=== PATIENT | female | born 1955 | race Caucasian/White ===

== ENCOUNTER 2020-08-28 11:04 | Outpatient (REF) | payer BC, SELFPAY ==
[2020-08-28 14:38] LABS: Alanine Aminotransferase 16 U/L (0-31); Albumin Level 3.9 g/dL (3.5-5.0); Alkaline Phosphatase 110 U/L (39-117); Aspartate Amino Transferase 18 U/L (5-31); Bilirubin Direct 0.3 mg/dL (0.0-0.5); Bilirubin Total 0.7 mg/dL (0.0-1.0); Total Protein 6.9 g/dL (6.5-8.0)
[2020-08-28 15:02] LABS: TSH reflex Free T4 1.47 mIU/mL (0.32-4.0)
[2020-08-28 18:12] LABS: Anion Gap 13 (12-20); Blood Urea Nitrogen 22 mg/dL (9-16); Calcium 8.9 mg/dL (8.4-10.2); Carbon Dioxide 31 mmol/L (22-29); Chloride 99 mmol/L (96-108); Estimated Glomerular Filt Rate 42; Glucose Random 100 mg/dL (60-115); Potassium 3.9 mmol/l (3.3-5.1); Sodium 139 mmol/L (135-145)
== END 2020-08-28 11:05 | disposition home or self-care (01) ==
LOC: CF 11:04
PROVIDERS: PCP Internal Medicine; Referring Provider Internal Medicine; Visit Provider Internal Medicine Cardiovascular Disease
DX: I48.0 Paroxysmal atrial fibrillation (principal); R06.00 Dyspnea, unspecified; I50.30 Unspecified diastolic (congestive) heart failure; I44.0 Atrioventricular block, first degree; G47.33 Obstructive sleep apnea (adult) (pediatric); Z86.718 Personal history of other venous thrombosis and embolism; Z79.01 Long term (current) use of anticoagulants; Z79.899 Other long term (current) drug therapy
CPT/HCPCS: 36415; 80048; 80076; 84443

== ENCOUNTER 2020-09-18 14:49 | Outpatient (REF) | payer BC, SELFPAY ==
[2020-09-18 16:01] LABS: Prothrombin Time 81.7 SEC (10.8-13.0)
[2020-09-18 16:27] LABS: INTERNATIONAL NORM RATIO 6.7 (0.9-1.1)
== END 2020-09-18 14:50 | disposition home or self-care (01) ==
LOC: HO.LAB 14:49
PROVIDERS: PCP Nurse Practitioner Family; Visit Provider Internal Medicine
DX: I48.0 Paroxysmal atrial fibrillation (principal); Z79.01 Long term (current) use of anticoagulants
CPT/HCPCS: 36415; 85610; 99212

== ENCOUNTER 2020-09-19 15:17 | Emergency (ER) | payer BC, SELFPAY ==
--- NOTE | 2020-09-19 15:24 | ECG_ITS ---
Test Reason : palpitations Blood Pressure : / mmHG Vent. Rate : 088 BPM Atrial Rate : 088 BPM P-R Int : 184 ms QRS Dur : 110 ms QT Int : 378 ms P-R-T Axes : 023 -46 008 degrees QTc Int : 457 ms Normal sinus rhythm Left anterior fascicular block Intra-ventricular conduction delay Abnormal ECG When compared with ECG of 27-MAY-2009 06:20, Vent. rate has increased BY 29 BPM Referred By: Generic ED Physician Electronically Signed By:REDD ROMERO MD
[2020-09-19 15:45] VITALS: BP 119/72; PULSE 86; RESP 18; TEMP 36.6; O2SAT 98; BMI 39.2
--- NOTE | 2020-09-19 17:20 | XR_ITS ---
EXAMINATION: XR CHEST CLINICAL INFORMATION: Palpitations. Shortness of breath. COMPARISON: Chest x-ray 05/27/2009 TECHNIQUE: 2 views of the chest were obtained. FINDINGS: Cardiac silhouette is normal in size. The lungs are well aerated. There is no lobar consolidation. No pleural effusion or pneumothorax. Kyphosis of the spine with mild to moderate degenerative changes. XR/XR chest 2V IMPRESSION: Stable examination demonstrating no acute pulmonary pathology.
--- NOTE | 2020-09-19 17:22 | ED_ITS ---
HPI - Arrhythmia/Palpitations General Chief Complaint: Weakness Stated Complaint: palpitations Time Seen by Provider: 09/19/20 17:05 Source: patient Mode of arrival: ambulatory Limitations: no limitations History of Present Illness HPI narrative: 64yoF c PMHx of proximal AFib currently on warfarin, Diastolic Heart failure, HLD, and BERE presenting to the ED c c/o palpitations since last night with associated left-sided chest soreness that has been present for the past few months and shortness of breath that has also been present for the past few months worse within the past 2 weeks. Patient reports associated generalized weakness and intermittent bilateral hand tingling. Patient reports she does not have the palpitations at this time. The continues to have the generalized weakness, left-sided chest soreness and shortness of breath. Reports she recently had her medications changed Flecainide to spironolactone and beginning of August. Also reports she recently had her INR checked and she reports she believes it was 7.5. Denies any other symptoms complaints or concerns at this time. Related Data Home Medications Medication Instructions Recorded Confirmed bumetanide 2 mg tablet 2 mg PO BID 08/28/20 09/19/20 metoprolol succinate 50 mg 25 mg PO DAILY 08/28/20 09/19/20 tablet,extended release 24 hr warfarin 5 mg tablet 2.5 mg PO MOFR 08/28/20 09/19/20 warfarin [Coumadin] 5 mg PO SUTUWETHSA 09/19/20 09/19/20 Previous Rx's Medication Instructions Recorded spironolactone 25 mg tablet 25 mg PO DAILY 60 Days #60 tab 08/30/20 Allergies Allergy/AdvReac Type Severity Reaction Status Date / Time Sulfa (Sulfonamide Allergy Unknown RASH Verified 09/19/20 15:45 Antibiotics) [SULFA(SULFONAMIDE ANTIBIOTICS)] Review of Systems Review of Systems: Constitutional : + Fatigue Eyes: No Eye Pain, No Swelling, No Vision Changes Cardiovascular : + SOB, + Dyspnea on Exertion, + Orthopnea, + Palpitations, No Edema, No extremity swelling, Respiratory : No Cough, No Sputum, No Wheezing, + Dyspnea Gastrointestinal : No Nausea, No Vomiting, No Diarrhea, No abdominal Pain, No Hematochezia, No Melena Genitourinary : No irregular bleeding, No Dysuria, No Urinary Frequency, No Hematuria, No Urinary Incontinence, No Urgency, No Flank Pain, No Urinary Flow Changes, No Hesitancy Musculoskeletal : No joint pain, No Myalgias, No Joint Swelling Skin : No Skin Lesions, No rash Neuro : + Weakness, No Numbness, No Paresthesias, No Loss of Consciousness, No Dizziness, No Headache Psych : No Anxiety/Panic, No Depression, No SI/HI/AH/VH Heme/Lymph: No Bruising, No Bleeding,No Lymphadenopathy Endocrine : No Polyuria, No Polydipsia, No Temperature Intolerance Yes all other systems are reviewed and are negative [facility] Past Medical History Attestation statement: The following information was validated with the patient. Medical History Diastolic heart failure DVT (deep venous thrombosis) Hyperlipidemia BERE (obstructive sleep apnea) Paroxysmal A-fib Surgical History H/O hysterectomy for benign disease Family History Family History Father Emphysema, unspecified Mother No problems noted. Brother Atrial fibrillation Sister Atrial fibrillation Social History Social History Alcohol intake: unknown Smoking Status: Unknown if ever smoked Use of substances other than those prescribed or required for medical reasons: No Advance Directives: No Advance Directives Information Provided: No Physical Exam Vital Signs: Vital Signs: Vital Signs Temp Pulse Resp BP Pulse Ox 09/19/20 20:56 79 16 98/50 L 98 09/19/20 19:22 74 14 116/58 L 98 09/19/20 18:53 74 18 113/74 09/19/20 17:40 97.9 F 89 18 106/71 97 09/19/20 15:45 97.8 F 86 18 119/72 98 Body Mass Index 39.2 vital signs have been reviewed as normal and appeared to be correct. Blood pressure normal. Heart rate normal. Respiration rate normal. Temperature normal. Oxygen saturation normal. Appearance: Alert. Oriented X3. No acute distress. Head: Normal external exam. Normocephalic. Atraumatic. No Hutchison signs noted. No raccoon eyes noted Eyes: PERRLA. EOMI. Conjunctiva and sclera normal. Eyelids normal. ENT: EAC normal. TM's Normal. Pharynx normal. Uvula midline. Moist mucous membranes. No trismus noted. No drooling noted. No muffled voice noted. Neck: Normal inspection. Neck supple. FROM. No adenopathy. Thyroid Normal. No meningeal signs. No neck mass noted. CVS: Normal heart rate and rhythm. Heart sound normal. No murmurs noted. Pulses normal throughout. Respiratory: No respiratory distress. Painless inspiration. Breath sounds normal. No wheezes/rales/rhonchi noted. Chest nontender. No accessory muscle usage noted or decreased air movement noted. Abdomen: Soft and nontender. Bowel sounds normal in all 4 quadrants. No distention noted. No organomegaly noted. No visible injury noted. Back: No CVA tenderness. Full range of motion noted. Skin: Skin warm and dry. Normal skin color. Normal skin turgor. No rashes/lesions/lacerations noted. Extremities: No lower extremity edema. Extremities exhibit normal range of motion. Extremities nontender. No calf tenderness bilaterally. Neuro: Oriented X 3. No motor deficit. No sensory deficit. Reflexes normal. Course Course Course Narrative: 17:20PM - 64yoF c PMHx of proximal AFib currently on warfarin, Diastolic Heart failure, HLD, and BERE presenting to the ED c c/o palpitations since last night with associated left-sided chest soreness that has been present for the past few months and shortness of breath that has also been present for the past few months worse within the past 2 weeks. Patient reports associated generalized weakness and intermittent bilateral hand tingling. Patient reports she does not have the palpitations at this time. The continues to have the generalized weakness, left-sided chest soreness and shortness of breath. Reports she recently had her medications changed Flecainide to spironolactone and beginning of August. Also reports she recently had her INR checked and she reports she believes it was 7.5. Denies any other symptoms complaints or concerns at this time. - Concern for ACS vs CHF vs electrolyte abnormality - Plan: Labs, EKG, CXR, CT scan of brain then re-evaluate. Reevaluation(s) Reevaluation #1: - Patient's PT INR 71.0/5.9 therefore will instruct patient to contact her primary care provider about this and possibly skip a dose of her warfarin. Her troponin was also elevated at 5.9 otherwise all other labs are within normal limits. UA within normal limits no evidence of UTI. Chest x-ray within normal limits no acute processes noted. CT scan of brain within normal limits no acute processes noted. EKG normal sinus rhythm no acute ischemic changes and similar when compared to prior. - will repeat troponin at 21:45 3 hours after the 1st then re-evaluate Time: 19:27 Reevaluation #2: Repeat troponin 7.2 therefore negative delta. Again no acute ischemic changes on EKG and similar compared to prior. Patient reports resolved of her symptoms. Therefore consulted with cardiology Dr. Helton and he reported that he does not see any significant to admit her at this time especially if she is not having any active palpitations or chest pain. It was suggested to DC the patient and to explain to the patient to return if any new or worsening symptoms or the symptoms return. And to follow-up with her primary care provider as scheduled on this week for an outpatient stress test. I also explained to the patient that she should not take her Coumadin for the next day or 2 and to confirm this with her doctor due to her INR level was elevated. Patient understands agrees with this plan. Time: 22:07 MDM - Arrhythmia/Palpitations Medical Records Attestation: I reviewed the patient's medical records. Lab Data Attestation: I reviewed the patient's lab results. Result diagrams: 09/19/20 17:46 09/19/20 17:46 Labs: Lab Results 09/19/20 09/19/20 09/19/20 Range/Units 17:46 17:46 17:46 WBC 9.8 (4.8-10.8) X10*3/uL RBC 4.78 (4.20-5.50) X10*6/uL Hgb 14.5 (12.0-16.0) g/dl Hct 42.4 (37-47) % MCV 88.7 (80-98) fL MCH 30.3 (27.0-33.0) pg MCHC 34.2 (31.0-35.0) g/dl RDW 13.6 (11.0-16.0) % Plt Count 286 (160-400) X10*3/uL MPV 10.6 (9.4-12.3) fL Immature Gran % (Auto) 0.6 H (0.0-0.4) % Neut % (Auto) 58.6 (45-73) % Lymph % (Auto) 29.0 (20-40) % [place] % (Auto) 9.3 (2-11) % Eos % (Auto) 1.8 (0-4) % Baso % (Auto) 0.7 (0-2) % Lymph # (Auto) 2.8 (1.2-4.9) X10*3/uL [place] # (Auto) 0.9 (0.1-1.2) X10*3/uL Eos # (Auto) 0.2 (0.0-0.4) X10*3/uL Baso # (Auto) 0.1 (0.0-0.2) X10*3/uL Abs Immat Gran (auto) 0.06 H (0.00-0.03) X10*3/uL Absolute Neuts (auto) 5.7 (2.0-8.3) X10*3/uL Absolute Nucleated RBC 0.000 (0.0-0.012) X10*3/uL Nucleated RBC % (auto) 0.0 (0.0-0.2) /100WBC PT 71.0 H (10.8-13.0) SEC INR 5.9 H* (0.9-1.1) Sodium 138 (135-145) mmol/L Potassium 3.8 (3.3-5.1) mmol/l Chloride 97 (96-108) mmol/L Carbon Dioxide 28 (22-29) mmol/L Anion Gap 17 (12-20) BUN 25 H (9-16) mg/dL Creatinine 1.28 (0.5-1.4) mg/dL Estim Creat Clear Calc 54.7 Estimated GFR 42 Random Glucose 139 H D (60-115) mg/dL Calcium 8.6 (8.4-10.2) mg/dL Magnesium 2.0 (1.6-2.6) mg/dL Total Bilirubin 0.6 (0.0-1.0) mg/dL Direct Bilirubin 0.2 (0.0-0.5) mg/dL AST 23 (5-31) U/L ALT 21 (0-31) U/L Alkaline Phosphatase 133 H D (39-117) U/L Troponin I High Sens (<3.5-17.0) ng/L B-Natriuretic Peptide (<100) pg/mL Total Protein 7.8 (6.5-8.0) g/dL Albumin 4.3 (3.5-5.0) g/dL Urine Color Urine Appearance Urine pH (5.0-8.0) Ur Specific [place] (1.005-1.025) Urine Protein (NEG-TRACE) MG/DL Urine Glucose (UA) (NEG) MG/DL Urine Ketones (NEG) MG/DL Urine Blood (NEG) Urine Nitrite (NEG) Ur Leukocyte Esterase (NEG) Urine RBC (0) /HPF Urine WBC (0-4) /HPF Urine WBC Clumps Ur Squamous Epith Cells /LPF Ur Renal Epithelial Cell Urine Crystals Federico Biurate Crystals Calcium Carbonate Cryst Calcium Phosphate Cryst Calcium Oxalate Crystal Leucine Crystals Cystine Crystals Uric Acid Crystals Triple Phos Crystals Tyrosine Crystals Other Crystals Amorphous Sediment Urine Bacteria /LPF Epithelial Casts Fatty Casts Hyaline Casts Granular Casts Waxy Casts RBC Casts WBC Casts Other Casts Urine Mucus Urine Trichomonas Urine Yeast Urine Sperm Ur Oval Fat Bodies 09/19/20 09/19/20 09/19/20 Range/Units 17:46 18:54 18:54 WBC (4.8-10.8) X10*3/uL RBC (4.20-5.50) X10*6/uL Hgb (12.0-16.0) g/dl Hct (37-47) % MCV (80-98) fL MCH (27.0-33.0) pg MCHC (31.0-35.0) g/dl RDW (11.0-16.0) % Plt Count (160-400) X10*3/uL MPV (9.4-12.3) fL Immature Gran % (Auto) (0.0-0.4) % Neut % (Auto) (45-73) % Lymph % (Auto) (20-40) % [place] % (Auto) (2-11) % Eos % (Auto) (0-4) % Baso % (Auto) (0-2) % Lymph # (Auto) (1.2-4.9) X10*3/uL [place] # (Auto) (0.1-1.2) X10*3/uL Eos # (Auto) (0.0-0.4) X10*3/uL Baso # (Auto) (0.0-0.2) X10*3/uL Abs Immat Gran (auto) (0.00-0.03) X10*3/uL Absolute Neuts (auto) (2.0-8.3) X10*3/uL Absolute Nucleated RBC (0.0-0.012) X10*3/uL Nucleated RBC % (auto) (0.0-0.2) /100WBC PT (10.8-13.0) SEC INR (0.9-1.1) Sodium (135-145) mmol/L Potassium (3.3-5.1) mmol/l Chloride (96-108) mmol/L Carbon Dioxide (22-29) mmol/L Anion Gap (12-20) BUN (9-16) mg/dL Creatinine (0.5-1.4) mg/dL Estim Creat Clear Calc Estimated GFR Random Glucose (60-115) mg/dL Calcium (8.4-10.2) mg/dL Magnesium (1.6-2.6) mg/dL Total Bilirubin (0.0-1.0) mg/dL Direct Bilirubin (0.0-0.5) mg/dL AST (5-31) U/L ALT (0-31) U/L Alkaline Phosphatase (39-117) U/L Troponin I High Sens 5.9 (<3.5-17.0) ng/L B-Natriuretic Peptide 114 H (<100) pg/mL Total Protein (6.5-8.0) g/dL Albumin (3.5-5.0) g/dL Urine Color YELLOW Urine Appearance CLEAR Urine pH 7.0 (5.0-8.0) Ur Specific [place] 1.020 (1.005-1.025) Urine Protein NEG (NEG-TRACE) MG/DL Urine Glucose (UA) NEG (NEG) MG/DL Urine Ketones NEG (NEG) MG/DL Urine Blood TRACE (NEG) Urine Nitrite NEG (NEG) Ur Leukocyte Esterase NEG (NEG) Urine RBC 1-4 Cancelled (0) /HPF Urine WBC 0-2 Cancelled (0-4) /HPF Urine WBC Clumps Cancelled Ur Squamous Epith Cells 1+ Cancelled /LPF Ur Renal Epithelial Cell Cancelled Urine Crystals Cancelled [place] Biurate Crystals Cancelled Calcium Carbonate Cryst Cancelled Calcium Phosphate Cryst Cancelled Calcium Oxalate Crystal Cancelled Leucine Crystals Cancelled Cystine Crystals Cancelled Uric Acid Crystals Cancelled Triple Phos Crystals Cancelled Tyrosine Crystals Cancelled Other Crystals Cancelled Amorphous Sediment Cancelled Urine Bacteria 1+ Cancelled /LPF Epithelial Casts Cancelled Fatty Casts Cancelled Hyaline Casts Cancelled Granular Casts Cancelled Waxy Casts Cancelled RBC Casts Cancelled WBC Casts Cancelled Other Casts Cancelled Urine Mucus Cancelled Urine Trichomonas Cancelled Urine Yeast Cancelled Urine Sperm Cancelled Ur Oval Fat Bodies Cancelled 09/19/20 Range/Units 20:38 WBC (4.8-10.8) X10*3/uL RBC (4.20-5.50) X10*6/uL Hgb (12.0-16.0) g/dl Hct (37-47) % MCV (80-98) fL MCH (27.0-33.0) pg MCHC (31.0-35.0) g/dl RDW (11.0-16.0) % Plt Count (160-400) X10*3/uL MPV (9.4-12.3) fL Immature Gran % (Auto) (0.0-0.4) % Neut % (Auto) (45-73) % Lymph % (Auto) (20-40) % [place] % (Auto) (2-11) % Eos % (Auto) (0-4) % Baso % (Auto) (0-2) % Lymph # (Auto) (1.2-4.9) X10*3/uL [place] # (Auto) (0.1-1.2) X10*3/uL Eos # (Auto) (0.0-0.4) X10*3/uL Baso # (Auto) (0.0-0.2) X10*3/uL Abs Immat Gran (auto) (0.00-0.03) X10*3/uL Absolute Neuts (auto) (2.0-8.3) X10*3/uL Absolute Nucleated RBC (0.0-0.012) X10*3/uL Nucleated RBC % (auto) (0.0-0.2) /100WBC PT (10.8-13.0) SEC INR (0.9-1.1) Sodium (135-145) mmol/L Potassium (3.3-5.1) mmol/l Chloride (96-108) mmol/L Carbon Dioxide (22-29) mmol/L Anion Gap (12-20) BUN (9-16) mg/dL Creatinine (0.5-1.4) mg/dL Estim Creat Clear Calc Estimated GFR Random Glucose (60-115) mg/dL Calcium (8.4-10.2) mg/dL Magnesium (1.6-2.6) mg/dL Total Bilirubin (0.0-1.0) mg/dL Direct Bilirubin (0.0-0.5) mg/dL AST (5-31) U/L ALT (0-31) U/L Alkaline Phosphatase (39-117) U/L Troponin I High Sens 7.2 (<3.5-17.0) ng/L B-Natriuretic Peptide (<100) pg/mL Total Protein (6.5-8.0) g/dL Albumin (3.5-5.0) g/dL Urine Color Urine Appearance Urine pH (5.0-8.0) Ur Specific [place] (1.005-1.025) Urine Protein (NEG-TRACE) MG/DL Urine Glucose (UA) (NEG) MG/DL Urine Ketones (NEG) MG/DL Urine Blood (NEG) Urine Nitrite (NEG) Ur Leukocyte Esterase (NEG) Urine RBC (0) /HPF Urine WBC (0-4) /HPF Urine WBC Clumps Ur Squamous Epith Cells /LPF Ur Renal Epithelial Cell Urine Crystals [place] Biurate Crystals Calcium Carbonate Cryst Calcium Phosphate Cryst Calcium Oxalate Crystal Leucine Crystals Cystine Crystals Uric Acid Crystals Triple Phos Crystals Tyrosine Crystals Other Crystals Amorphous Sediment Urine Bacteria /LPF Epithelial Casts Fatty Casts Hyaline Casts Granular Casts Waxy Casts RBC Casts WBC Casts Other Casts Urine Mucus Urine Trichomonas Urine Yeast Urine Sperm Ur Oval Fat Bodies Imaging Data Chest x-ray: Attestation: I personally reviewed and interpreted this imaging study as follows: Radiologist's impression: FINDINGS: Cardiac silhouette is normal in size. The lungs are well aerated. There is no lobar consolidation. No pleural effusion or pneumothorax. Kyphosis of the spine with mild to moderate degenerative changes. XR/XR chest 2V IMPRESSION: Stable examination demonstrating no acute pulmonary pathology. CT scan - head: Attestation: I personally reviewed and interpreted this imaging study as follows: Radiologist's impression: FINDINGS: There is no evidence of acute intracranial hemorrhage or territorial infarction. No abnormal mass effect or midline shift is seen. Brannon to white matter differentiation is well preserved. No extra-axial fluid collections are identified. The ventricles are normal in size. There is no abnormal attenuation within the brain parenchyma. The osseous structures and soft tissues are normal. Mild hyperostosis frontalis. The mastoid air cells and visualized portions of the paranasal sinuses are well aerated. CT/CT head/brain wo con IMPRESSION: No acute intracranial pathology. ECG Data Attestation: I personally reviewed and interpreted this ECG as follows: ECG interpretation date: 09/19/20 ECG interpretation time: 15:24 Interpretation: Normal sinus rhythm with a ventricular rate of 88 with left anterior fascicular block with normal QRS/QT/QTC interval. Similar compared to prior EKG on 05/27/2009 no acute ischemic changes noted. Discharge Plan Discharge Prescriptions: No Action spironolactone 25 mg tablet 25 mg PO DAILY 60 Days Qty: 60 RF: 3 warfarin [Coumadin] 5 mg Tablet 5 mg PO SUTUWETHSA RF: 0 bumetanide 2 mg tablet 2 mg PO BID RF: 0 metoprolol succinate 50 mg tablet extended release 24 hr 25 mg PO DAILY RF: 0 warfarin 5 mg tablet 2.5 mg PO MOFR RF: 0
--- NOTE | 2020-09-19 17:23 | CT_ITS ---
EXAMINATION: CT HEAD WITHOUT CONTRAST CLINICAL INFORMATION: Generalized weakness. COMPARISON: Head CT 11/25/2014 TECHNIQUE: Contiguous axial imaging was performed from the skull base to vertex without intravenous administration of contrast. This CT examination was performed using dose optimization techniques as appropriate, variously including the following: *Automated exposure control *Adjustment of mA and/or kV according to patient size (this includes techniques or standardized protocols for targeted exams where dose is matched to indication/reason for exam; i.e. extremities or head) *Use of iterative reconstruction technique DLP: 625 mGy-cm FINDINGS: There is no evidence of acute intracranial hemorrhage or territorial infarction. No abnormal mass effect or midline shift is seen. [place] to white matter differentiation is well preserved. No extra-axial fluid collections are identified. The ventricles are normal in size. There is no abnormal attenuation within the brain parenchyma. The osseous structures and soft tissues are normal. Mild hyperostosis frontalis. The mastoid air cells and visualized portions of the paranasal sinuses are well aerated. CT/CT head/brain wo con IMPRESSION: No acute intracranial pathology.
[2020-09-19 17:40] VITALS: BP 106/71; PULSE 89; RESP 18; TEMP 36.6; O2SAT 97
[2020-09-19 17:51] LABS: MANUAL DIFF FLAG NO
[2020-09-19 18:01] LABS: INTERNATIONAL NORM RATIO 5.9 (0.9-1.1)
[2020-09-19 18:02] LABS: Basophils Absolute Auto 0.1 X10*3/uL (0.0-0.2); Basophils Percent Auto 0.7 % (0-2); Eosinophils Absolute Auto 0.2 X10*3/uL (0.0-0.4); Eosinophils Percent Auto 1.8 % (0-4); Hematocrit 42.4 % (37-47); Hemoglobin 14.5 g/dl (12.0-16.0); Imm Gran Abs Auto 0.06 X10*3/uL (0.00-0.03); Imm Gran Pct Auto 0.6 % (0.0-0.4); Lymphocytes Absolute Auto 2.8 X10*3/uL (1.2-4.9); Mean Corpuscular HGB Conc 34.2 g/dl (31.0-35.0); Mean Corpuscular Hemoglobin 30.3 pg (27.0-33.0); Mean Corpuscular Volume 88.7 fL (80-98); Mean Platelet Volume 10.6 fL (9.4-12.3); Monocytes Absolute Auto 0.9 X10*3/uL (0.1-1.2); Monocytes Percent Auto 9.3 % (2-11); Neutrophils Absolute Auto 5.7 X10*3/uL (2.0-8.3); Neutrophils Percent Auto 58.6 % (45-73); Platelet Count 286 X10*3/uL (160-400); Red Blood Count 4.78 X10*6/uL (4.20-5.50); Red Cell Distribution Width 13.6 % (11.0-16.0); White Blood Count 9.8 X10*3/uL (4.8-10.8)
[2020-09-19 18:28] LABS: B Type Natriuretic Peptide 114 pg/mL (<100); Troponin-I High Sensitivity 5.9 ng/L (<3.5-17.0)
[2020-09-19 18:42] LABS: Alanine Aminotransferase 21 U/L (0-31); Albumin Level 4.3 g/dL (3.5-5.0); Alkaline Phosphatase 133 U/L (39-117); Anion Gap 17 (12-20); Aspartate Amino Transferase 23 U/L (5-31); Bilirubin Direct 0.2 mg/dL (0.0-0.5); Bilirubin Total 0.6 mg/dL (0.0-1.0); Blood Urea Nitrogen 25 mg/dL (9-16); Calcium 8.6 mg/dL (8.4-10.2); Carbon Dioxide 28 mmol/L (22-29); Chloride 97 mmol/L (96-108); Creatinine Clr Calc Pharmacy 54.7; Estimated Glomerular Filt Rate 42; Glucose Random 139 mg/dL (60-115); Potassium 3.8 mmol/l (3.3-5.1); Sodium 138 mmol/L (135-145); Total Protein 7.8 g/dL (6.5-8.0)
[2020-09-19 18:53] VITALS: BP 113/74; PULSE 74; RESP 18
[2020-09-19 19:09] LABS: Appearance Urine CLEAR; Color Urine YELLOW; Glucose Urine UA NEG (NEG); Leukocyte Esterase Urine NEG (NEG); Nitrite Urine NEG (NEG); Urine Blood TRACE (NEG); Urine Ketones NEG (NEG); Urine Protein NEG (NEG-TRACE)
[2020-09-19 19:19] LABS: Bacteria Urine 1+ /LPF; Squamous Epithelial Cell Urine 1+ /LPF; WBC Urine 0-2 /HPF (0-4)
--- NOTE | 2020-09-19 19:20 | PC.NURSE ---
PT IS ALERT TO SELF. PT IS CALM AND COOPERATIVE. PT IS STRAIGHT CATH.
[2020-09-19 19:22] VITALS: BP 116/58; PULSE 74; RESP 14; O2SAT 98
--- NOTE | 2020-09-19 19:35 | PC.NURSE ---
Pt A&O, no sob or chest pain at this time. provider is aware of elevated of INR. call lopes in reach. pt is resting in bed at this time.
[2020-09-19 20:56] VITALS: BP 98/50; PULSE 79; RESP 16; O2SAT 98
[2020-09-19 21:08] LABS: Troponin-I High Sensitivity 7.2 ng/L (<3.5-17.0)
[2020-09-19 22:57] LABS: SARS COV2 PCR INHOUSE NEGATIVE (Negative)
== END 2020-09-19 22:39 | disposition home or self-care (01) ==
PROVIDERS: Physician Assistant Medical; Emergency Provider Internal Medicine
DX: I48.91 Unspecified atrial fibrillation (principal); G47.33 Obstructive sleep apnea (adult) (pediatric); R07.89 Other chest pain; R06.02 Shortness of breath; Z79.01 Long term (current) use of anticoagulants; Z79.899 Other long term (current) drug therapy
CPT/HCPCS: 36415; 70450; 71046; 80048; 80076; 81001; 83735; 83880; 84484; 85025; 85610; 87635; 93005; 99284; 99285

== ENCOUNTER 2020-09-20 19:57 | Inpatient (IN) | payer BC, SELFPAY ==
[2020-09-20 20:00] VITALS: BP 129/69; PULSE 88; RESP 22; TEMP 37.1; O2SAT 94; BMI 39.2
[2020-09-20 20:18] VITALS: BP 129/69; PULSE 88; RESP 22; TEMP 37.1; O2SAT 95
--- NOTE | 2020-09-20 20:18 | ECG_ITS ---
Test Reason : DIZZINESS Blood Pressure : / mmHG Vent. Rate : 087 BPM Atrial Rate : 087 BPM P-R Int : 180 ms QRS Dur : 104 ms QT Int : 382 ms P-R-T Axes : 025 -47 -07 degrees QTc Int : 459 ms Normal sinus rhythm Left anterior fascicular block Intra-ventricular conduction delay Abnormal ECG When compared with ECG of 19-SEP-2020 15:24, No significant change was found Referred By: Mo Carranza Electronically Signed By:REDD ROMERO MD
--- NOTE | 2020-09-20 20:25 | ED.ARRPALP ---
HPI - Arrhythmia/Palpitations General Chief Complaint: Dizziness Stated Complaint: WEAKNESS,DIZZINESS Time Seen by Provider: 09/20/20 20:17 Source: patient Mode of arrival: ambulatory Limitations: no limitations History of Present Illness HPI narrative: patient's history of paroxysmal AFib on metoprolol 25 mg daily and Coumadin was seen here yesterday for chest pain and palpitation workup was negative patient went home today since morning been feeling multiple episodes of palpitation followed by near syncope episode lasting about 5 minutes patient felt chest tightness with palpitations after arrival patient denies any palpitation episode MD complaint: rapid heart beat Onset (ago): hour(s) ( since a.m.) Duration: intermittent Severity: moderate Context: occurred during rest Arrhythmia history: atrial fibrillation Associated symptoms: near-syncope Related Data Home Medications Medication Instructions Recorded Confirmed bumetanide 2 mg tablet 2 mg PO BID 08/28/20 09/19/20 metoprolol succinate 50 mg 25 mg PO DAILY 08/28/20 09/19/20 tablet,extended release 24 hr warfarin 5 mg tablet 2.5 mg PO MOFR 08/28/20 09/19/20 warfarin [Coumadin] 5 mg PO SUTUWETHSA 09/19/20 09/19/20 Previous Rx's Medication Instructions Recorded spironolactone 25 mg tablet 25 mg PO DAILY 60 Days #60 tab 08/30/20 Allergies Allergy/AdvReac Type Severity Reaction Status Date / Time Sulfa (Sulfonamide Allergy Unknown RASH Verified 09/20/20 20:25 Antibiotics) [SULFA(SULFONAMIDE ANTIBIOTICS)] codeine AdvReac Vomiting Verified 09/20/20 20:25 Review of Systems Review of Systems: REVIEW OF SYSTEMS: Pertinent positives and negatives are stated above in the history. GEN: no fevers, chills, fatigue HEENT: no nasal congestion, sore throat, ear pain NEURO: no headache, dizziness, focal weakness PULM: no cough, shortness of breath CV: no chest pain, LE edema ABD: no abdominal pain, nausea, vomiting, diarrhea : no dysuria, urgency, frequency SKIN: no rash ROS otherwise negative x 10 [facility] Past Medical History Medical History Diastolic heart failure DVT (deep venous thrombosis) Hyperlipidemia BERE (obstructive sleep apnea) Paroxysmal A-fib Surgical History H/O hysterectomy for benign disease Family History Family History Father Emphysema, unspecified Mother No problems noted. Brother Atrial fibrillation Sister Atrial fibrillation Social History Social History Alcohol intake: never Smoking Status: Former smoker Smoked in Last 30 Days: No Use of substances other than those prescribed or required for medical reasons: No Advance Directives: No Advance Directives Information Provided: No Physical Exam Vital Signs: Vital Signs: Vital Signs Temp Pulse Resp BP Pulse Ox 09/20/20 20:18 98.8 F 88 22 H 129/69 95 09/20/20 20:00 98.8 F 88 22 H 129/69 94 Body Mass Index 39.2 VITAL SIGNS: Reviewed. GENERAL: Well developed, well nourished, in no acute distress. HEAD: Normocephalic/atraumatic, EYES: PERRLA No pallor/icterus noted EARS: Ext canals without abnormality NOSE: Nares patent bilateral OROPHARYNX: Oral mucosa moist no oral lesions NECK: Supple, no adenopathy LUNGS: Normal breath sounds. No adventitious sounds or accessory muscle use CARDIOVASCULAR: Regular rate and rhythm without noted murmurs, no JVD or lower extremity edema. occasional PVCs ABDOMEN: Soft, non-tender, non-distended with bowel sounds. No rigidity. No guarding. No palpable masses or hernias noted MUSCULOSKELETAL: No tenderness, deformities, EXTREMITIES: No cyanosis or edema. SKIN: no rashes, ulcerations, jaundice, pallor, or petechiae NEUROLOGIC: Alert and oriented x 3. Strength and sensation to light touch were grossly intact Course Course Course Narrative: patient with dizziness and near-syncope episode with palpitations with history of atrial fibrillation during stay in the ER patient did not have any episode labs are stable except her creatinine is increased to 1.7 for likely from prerenal. Patient does not feel good to go home at this time patient coming to the ER within 24 hours for dizziness and palpitations never had any loop recorder in the past. Will admit patient for multiple episodes of palpitations and renal insufficiency INR is 3.9 today MDM - Arrhythmia/Palpitations Differential Diagnosis Differential diagnosis: Likely palpitations, anxiety, sinus tachycardia, artial fibrillation and supraventricular tachycardia Lab Data Result diagrams: 09/20/20 20:33 09/20/20 20:33 Labs: Lab Results 09/20/20 09/20/20 09/20/20 Range/Units 20:33 20:33 20:38 WBC 9.1 (4.8-10.8) X10*3/uL RBC 4.86 (4.20-5.50) X10*6/uL Hgb 15.0 (12.0-16.0) g/dl Hct 43.5 (37-47) % MCV 89.5 (80-98) fL MCH 30.9 (27.0-33.0) pg MCHC 34.5 (31.0-35.0) g/dl RDW 13.5 (11.0-16.0) % Plt Count 246 (160-400) X10*3/uL MPV 10.8 (9.4-12.3) fL Immature Gran % (Auto) 0.2 (0.0-0.4) % Neut % (Auto) 60.7 (45-73) % Lymph % (Auto) 28.1 (20-40) % [place] % (Auto) 8.4 (2-11) % Eos % (Auto) 2.2 (0-4) % Baso % (Auto) 0.4 (0-2) % Lymph # (Auto) 2.6 (1.2-4.9) X10*3/uL [place] # (Auto) 0.8 (0.1-1.2) X10*3/uL Eos # (Auto) 0.2 (0.0-0.4) X10*3/uL Baso # (Auto) 0.0 (0.0-0.2) X10*3/uL Abs Immat Gran (auto) 0.02 (0.00-0.03) X10*3/uL Absolute Neuts (auto) 5.5 (2.0-8.3) X10*3/uL Absolute Nucleated RBC 0.000 (0.0-0.012) X10*3/uL Nucleated RBC % (auto) 0.0 (0.0-0.2) /100WBC PT 47.5 H D (10.8-13.0) SEC INR 3.9 H (0.9-1.1) Sodium 136 (135-145) mmol/L Potassium 3.8 (3.3-5.1) mmol/l Chloride 100 (96-108) mmol/L Carbon Dioxide 19 L (22-29) mmol/L Anion Gap 21 H (12-20) BUN 32 H (9-16) mg/dL Creatinine 1.74 H (0.5-1.4) mg/dL Estim Creat Clear Calc 40.2 Estimated GFR 30 POC Glucose (60-115) mg/dL Random Glucose 163 H (60-115) mg/dL Calcium 8.2 L (8.4-10.2) mg/dL Total Bilirubin 0.8 (0.0-1.0) mg/dL Direct Bilirubin 0.2 (0.0-0.5) mg/dL AST 25 (5-31) U/L ALT 20 (0-31) U/L Alkaline Phosphatase 128 H (39-117) U/L Troponin I High Sens (<3.5-17.0) ng/L Total Protein 7.5 (6.5-8.0) g/dL Albumin 4.0 (3.5-5.0) g/dL 09/20/20 09/20/20 Range/Units 20:38 20:49 WBC (4.8-10.8) X10*3/uL RBC (4.20-5.50) X10*6/uL Hgb (12.0-16.0) g/dl Hct (37-47) % MCV (80-98) fL MCH (27.0-33.0) pg MCHC (31.0-35.0) g/dl RDW (11.0-16.0) % Plt Count (160-400) X10*3/uL MPV (9.4-12.3) fL Immature Gran % (Auto) (0.0-0.4) % Neut % (Auto) (45-73) % Lymph % (Auto) (20-40) % [place] % (Auto) (2-11) % Eos % (Auto) (0-4) % Baso % (Auto) (0-2) % Lymph # (Auto) (1.2-4.9) X10*3/uL [place] # (Auto) (0.1-1.2) X10*3/uL Eos # (Auto) (0.0-0.4) X10*3/uL Baso # (Auto) (0.0-0.2) X10*3/uL Abs Immat Gran (auto) (0.00-0.03) X10*3/uL Absolute Neuts (auto) (2.0-8.3) X10*3/uL Absolute Nucleated RBC (0.0-0.012) X10*3/uL Nucleated RBC % (auto) (0.0-0.2) /100WBC PT (10.8-13.0) SEC INR (0.9-1.1) Sodium (135-145) mmol/L Potassium (3.3-5.1) mmol/l Chloride (96-108) mmol/L Carbon Dioxide (22-29) mmol/L Anion Gap (12-20) BUN (9-16) mg/dL Creatinine (0.5-1.4) mg/dL Estim Creat Clear Calc Estimated GFR POC Glucose 150 H (60-115) mg/dL Random Glucose (60-115) mg/dL Calcium (8.4-10.2) mg/dL Total Bilirubin (0.0-1.0) mg/dL Direct Bilirubin (0.0-0.5) mg/dL AST (5-31) U/L ALT (0-31) U/L Alkaline Phosphatase (39-117) U/L Troponin I High Sens 9.4 (<3.5-17.0) ng/L Total Protein (6.5-8.0) g/dL Albumin (3.5-5.0) g/dL ECG Data Attestation: I personally reviewed and interpreted this ECG as follows: Prior ECG tracings: available for review Interpretation: heart rate 87 normal sinus rhythm left anterior fascicular block LVH no acute ST T wave changes normal axis no acute change from previous EKGs Discharge Plan Discharge Clinical Impression: Paroxysmal A-fib Acute renal failure Qualifiers: Acute renal failure type: with acute tubular necrosis Qualified Code(s): N17.0 - Acute kidney failure with tubular necrosis Patient Disposition: Admitted As Inpatient
[2020-09-20] MEDS: 0.9 % Sodium Chloride 1,000 ML 999 ML IVCONT (20:29)
[2020-09-20 20:43] LABS: MANUAL DIFF FLAG NO
[2020-09-20 20:50] LABS: Basophils Percent Auto 0.4 % (0-2); Eosinophils Absolute Auto 0.2 X10*3/uL (0.0-0.4); Eosinophils Percent Auto 2.2 % (0-4); Hematocrit 43.5 % (37-47); Imm Gran Abs Auto 0.02 X10*3/uL (0.00-0.03); Imm Gran Pct Auto 0.2 % (0.0-0.4); Lymphocytes Absolute Auto 2.6 X10*3/uL (1.2-4.9); Lymphocytes Percent Auto 28.1 % (20-40); Mean Corpuscular HGB Conc 34.5 g/dl (31.0-35.0); Mean Corpuscular Hemoglobin 30.9 pg (27.0-33.0); Mean Corpuscular Volume 89.5 fL (80-98); Mean Platelet Volume 10.8 fL (9.4-12.3); Monocytes Absolute Auto 0.8 X10*3/uL (0.1-1.2); Monocytes Percent Auto 8.4 % (2-11); Neutrophils Absolute Auto 5.5 X10*3/uL (2.0-8.3); Neutrophils Percent Auto 60.7 % (45-73); Platelet Count 246 X10*3/uL (160-400); Red Blood Count 4.86 X10*6/uL (4.20-5.50); Red Cell Distribution Width 13.5 % (11.0-16.0); White Blood Count 9.1 X10*3/uL (4.8-10.8)
[2020-09-20 20:52] LABS: Glucose, Whole Blood 150 mg/dL (60-115)
[2020-09-20 20:56] LABS: INTERNATIONAL NORM RATIO 3.9 (0.9-1.1); Prothrombin Time 47.5 SEC (10.8-13.0)
[2020-09-20 21:25] LABS: Alanine Aminotransferase 20 U/L (0-31); Alkaline Phosphatase 128 U/L (39-117); Anion Gap 21 (12-20); Aspartate Amino Transferase 25 U/L (5-31); Bilirubin Direct 0.2 mg/dL (0.0-0.5); Bilirubin Total 0.8 mg/dL (0.0-1.0); Blood Urea Nitrogen 32 mg/dL (9-16); Calcium 8.2 mg/dL (8.4-10.2); Carbon Dioxide 19 mmol/L (22-29); Chloride 100 mmol/L (96-108); Glucose Random 163 mg/dL (60-115); Potassium 3.8 mmol/l (3.3-5.1); Sodium 136 mmol/L (135-145); Total Protein 7.5 g/dL (6.5-8.0)
[2020-09-20 21:35] LABS: Troponin-I High Sensitivity 9.4 ng/L (<3.5-17.0)
[2020-09-20 21:38] LABS: Creatinine Clr Calc Pharmacy 40.2; Estimated Glomerular Filt Rate 30
--- NOTE | 2020-09-20 21:47 | PC.NURSE ---
PT IN NAD PT CALM AND COOPERATIVE IN ROOM AWAITING FOR PENDING ORDERS. PT DENIES ANY COMPLAINTS AT THIS TIME,. AWAITING PENDING ORDERS.
--- NOTE | 2020-09-20 22:36 | PC.NURSE ---
PT UP AND AMBULATES TO RESTROOM WITH ASSISTENCE. PT C/O FEELING A LITTLE WINDED WHILE AMBULATING. AWARE.
[2020-09-21] VITALS (18 sets, daily range): BP systolic 87–115; BP diastolic 48–67; PULSE 63–80; RESP 14–75; TEMP 36.6–37.1; O2SAT 95–98; BMI 39.5
--- NOTE | 2020-09-21 | XR_ITS ---
EXAMINATION: XR CHEST CLINICAL INFORMATION: Shortness of breath COMPARISON: Chest radiographs 09/19/2020, 05/27/2009 TECHNIQUE: Portable upright AP view of the chest was obtained. FINDINGS: There is coarsening of the bronchiolar markings similar to recent exam 09/19/2020. The vascularity is normal. There is no vascular congestion, infiltrate, or effusion. No definite focal groundglass opacity. No pneumothorax or pleural reaction. The heart is normal in size. The hilar and mediastinal contours are unremarkable. No acute bony abnormality. XR/XR chest 1V IMPRESSION: Coarsening bronchiolar markings. No vascular congestion, airspace consolidation, or effusion.
--- NOTE | 2020-09-21 06:41 | P.HPIM_ITS ---
History of Present Illness Date of Service: 09/21/20 Chief Complaint: palpitations this is a 64-year-old female with past medical history of paroxysmal AFib who presents to the hospital complaining of intermittent episodes of palpitations, weakness, and just generally not feeling too well since Friday. Patient reports that she had an episode of almost blacking out after developing palpitations yesterday while doing laundry. She takes metoprolol and Coumadin for AFib, Coumadin has been placed on hold since Friday for supratherapeutic INR. She denies having any shortness of breath, complaining of sharp left-sided chest pain, nonradiating, 5/10, localized to the area under the left breast, she has no lower extremity edema but reports shortness of breath more than usual since Friday,, no orthopnea or PND. She has no nausea vomiting diarrhea or constipation. No urinary symptoms on arrival to the ED hemodynamically stable with no significant abnormal vitals, labs are significant for a PT of 47.5 an INR of 3.9, BUN of 32 and a creatinine of 1.74 (baseline around 1.2), EKG showed normal sinus rhythm initially, but while boarding in the ED this morning patient developed an episode of AFib with RVR with heart rate going to 140 and patient having symptoms of almost blacking out. Patient converted back to sinus spontaneously with no intervention troponin is 9.4. Past medical history: paroxysmal AFib, sleep apnea, CHF, history of DVT, past surgical history: Varicose vein? Surgery family history: Denies social history: Comes from home, denies tobacco alcohol or illicit drugs Review of Systems Review of Systems: Yes all other systems are reviewed and are negative [facility] Medical History Diastolic heart failure DVT (deep venous thrombosis) Hyperlipidemia BERE (obstructive sleep apnea) Paroxysmal A-fib Family History Father Emphysema, unspecified Mother No problems noted. Brother Atrial fibrillation Sister Atrial fibrillation Surgical History H/O hysterectomy for benign disease Social History Alcohol intake: never Smoking Status: Former smoker Smoked in Last 30 Days: No Use of substances other than those prescribed or required for medical reasons: No Advance Directives: No Advance Directives Information Provided: No Meds Allergies Allergy/AdvReac Type Severity Reaction Status Date / Time Sulfa (Sulfonamide Allergy Unknown RASH Verified 09/20/20 20:25 Antibiotics) [SULFA(SULFONAMIDE ANTIBIOTICS)] codeine AdvReac Vomiting Verified 09/20/20 20:25 Home Medications Medication Instructions Recorded Confirmed Type bumetanide 2 mg tablet 2 mg PO BID 08/28/20 09/21/20 History metoprolol succinate 50 mg 25 mg PO DAILY 08/28/20 09/21/20 History tablet,extended release 24 hr warfarin 5 mg tablet 2.5 mg PO MOFR 08/28/20 09/21/20 History warfarin [Coumadin] 5 mg PO SUTUWETHSA 09/19/20 09/21/20 History Physical Exam Vital Signs and Narrative: Vital Signs: Last Vital Signs Temp 98.8 F 09/20/20 20:18 Pulse 66 09/21/20 04:24 Resp 16 09/21/20 04:24 BP 110/64 09/21/20 04:24 Pulse Ox 97 09/21/20 04:24 Body Mass Index 39.2 Const: General: cooperative, ill appearing and tired appearing Eyes: General: appearance normal, both eyes and all related structures Pupils: Equal, round and reactive pupils present Resp: Effort & Inspection: normal respiratory effort, able to speak in compl ete sentences and abnormal respiratory pattern Auscultation: clear to auscultation bilaterally Cardio: Rate: regular rate Rhythm: regular rhythm GI: Palpation (GI): Soft to palpation Auscultation: normal bowel sounds Skin: General skin exam: no rashes or lesions noted Neuro: Cranial nerves: Yes Equal, round and reactive pupils present Cognition (Neuro): normal cognition Extrem: General: Yes normal to inspection and Yes no pedal edema Results Labs Labs: Laboratory Tests 09/20/20 09/20/20 09/20/20 20:33 20:33 20:38 WBC 9.1 RBC 4.86 Hgb 15.0 Hct 43.5 MCV 89.5 MCH 30.9 MCHC 34.5 RDW 13.5 Plt Count 246 MPV 10.8 Immature Gran % (Auto) 0.2 Neut % (Auto) 60.7 Lymph % (Auto) 28.1 [place] % (Auto) 8.4 Eos % (Auto) 2.2 Baso % (Auto) 0.4 Lymph # (Auto) 2.6 [place] # (Auto) 0.8 Eos # (Auto) 0.2 Baso # (Auto) 0.0 Abs Immat Gran (auto) 0.02 Absolute Neuts (auto) 5.5 Absolute Nucleated RBC 0.000 Nucleated RBC % (auto) 0.0 PT 47.5 H D INR 3.9 H Sodium 136 Potassium 3.8 Chloride 100 Carbon Dioxide 19 L Anion Gap 21 H BUN 32 H Creatinine 1.74 H Estim Creat Clear Calc 40.2 Estimated GFR 30 POC Glucose Random Glucose 163 H Calcium 8.2 L Total Bilirubin 0.8 Direct Bilirubin 0.2 AST 25 ALT 20 Alkaline Phosphatase 128 H Troponin I High Sens Total Protein 7.5 Albumin 4.0 09/20/20 09/20/20 20:38 20:49 WBC RBC Hgb Hct MCV MCH MCHC RDW Plt Count MPV Immature Gran % (Auto) Neut % (Auto) Lymph % (Auto) [place] % (Auto) Eos % (Auto) Baso % (Auto) Lymph # (Auto) [place] # (Auto) Eos # (Auto) Baso # (Auto) Abs Immat Gran (auto) Absolute Neuts (auto) Absolute Nucleated RBC Nucleated RBC % (auto) PT INR Sodium Potassium Chloride Carbon Dioxide Anion Gap BUN Creatinine Estim Creat Clear Calc Estimated GFR POC Glucose 150 H Random Glucose Calcium Total Bilirubin Direct Bilirubin AST ALT Alkaline Phosphatase Troponin I High Sens 9.4 Total Protein Albumin ECG Interpretation: Normal sinus rhythm Left anterior fascicular block Minimal voltage criteria for LVH, may be normal variant Abnormal ECG When compared with ECG of 19-SEP-2020 15:24, No significant change was found Assessment and Plan (1) Paroxysmal A-fib: Status: Acute (2) Acute renal failure: Qualifiers: Acute renal failure type: with acute tubular necrosis Qualified Code(s): N17.0 - Acute kidney failure with tubular necrosis Status: Acute (3) Diastolic heart failure: Status: Acute (4) BERE (obstructive sleep apnea): Status: Acute this is a 64-year-old female with past medical history of paroxysmal AFib who presents to the hospital with complaints of palpitations, and almost passing out multiple times as a result # paroxysmal AFib - had an episode of AFib with RVR while waiting in the ED with heart rate reaching 140s, patient was symptomatic, with almost presyncopal - reverted back to sinus rhythm spontaneously - no evidence of acute infection, troponin high sensitivity of 9 - no EKG changes suggestive of ACS Plan: - Will obtain a BNP, chest x-ray, cardiology consult, and admit to telemetry - patient is INR supratherapeutic, therefore will hold Coumadin - continue metoprolol # chest pain - atypical - initial troponin of 9 with no EKG changes suggestive of ACS - will order a 2nd high sensitivity troponin # diastolic heart failure - does not appear to be in overload although does endorse dyspnea plan: - Will obtain BNP, chest x-ray, echocardiogram - cardiology consultation - continue Bumex, metoprolol # history of DVT - supratherapeutic INR - PT INR daily - resume warfarin was therapeutic # BERE - continue CPAP DVT prophylaxis: Warfarin
[2020-09-21] MEDS: 0.9 % Sodium Chloride 500 ML IV (06:45)
--- NOTE | 2020-09-21 06:51 | PC.NURSE ---
PT WAS C/O CHEST DISCOMFORT AND FELT POUNDING IN CHEST. PT WAS IN A-FIB WTIH HR OF 134 AND THEN CONVERTED TO NSR WITH A HR OF 71. MD AWARE. PT STATES I FEEL A LITTLE BETTER . PT ALERT, RESPIRATIONS N/L BUT PT WAS C/O FEELING SOB PT'S PO WAS 95% ON RA. PT PUT ON 2L NC WITH PO 98%. EKG CANCELLED PER MD D/T CONVERTING BACK TO NSR. COVID SWAB OBTAINED TO LAB. HL FLUSHES EASILY W/O RESISTANCE TO LAC. PT AWAITING FOR ROOM ASSIGNMENT.
[2020-09-21 07:41] LABS: SARS COV2 PCR INHOUSE NEGATIVE (Negative)
[2020-09-21 08:17] LABS: Troponin-I High Sensitivity 8.8 ng/L (<3.5-17.0)
[2020-09-21 08:24] LABS: B Type Natriuretic Peptide 210 pg/mL (<100)
--- NOTE | 2020-09-21 08:56 | PC.NURSE ---
Dr. Celestin made aware of hypotension, 80s/50s. pt asymptomatic. nsr.
[2020-09-21] MEDS: 0.9 % Sodium Chloride 1,000 ML 500 ML IVCONT (09:20)
--- NOTE | 2020-09-21 09:57 | CA_ITS ---
Transthoracic Echocardiogram Patient (Last, First, Middle): Davida Downey L Gender: Female Date of : 1955 Age: 64 Procedure Date: 09/21/2020 Procedure Type: Transthoracic Echocardiogram Location: ICU Height: 165.1 cm Weight: 107.5 kg BSA: 2.13 m2 Heart Rate: bpm BP: 100 / 48 mmHg Industrial Economics Teacher: RACHAEL Bates MD: Manish Kinney MD Transplant Nurse: Manish Kinney MD Symptoms: A fib w rvr Study Quality: Technically Difficult ECG Rhythm: Sinus Conclusions: - 1. Normal LV systolic function with impaired relaxation filling pattern 2. Normal cardiac valvular Doppler 3. Normal RV systolic pressure 4. No gross pericardial effusion Findings Procedure Information Contrast agent, definity, is being given per protocol without apparent complications. Left Ventricle Normal left ventricular size, thickness, and systolic function. The visually estimated ejection fraction is between 60-65%. Spectral Doppler is indicative of an impaired relaxation filling pattern. Right Ventricle Normal right ventricular cavity size and systolic function. Atria The left atrium is normal in size. Interatrial shunt cannot be excluded. Aortic Valve The aortic valve was not well visualized. There is no aortic valve stenosis. There is no aortic valve regurgitation. Mitral Valve Likely normal mitral valve structure and function. There is trace mitral valve regurgitation. There is no mitral valve stenosis. Pulmonic Valve The pulmonic valve was not well visualized. Tricuspid Valve The tricuspid valve was not well visualized. There is trace tricuspid valve regurgitation. The right ventricular systolic pressure is normal. The right ventricular systolic pressure is 25 mmHg. Normal right atrial pressure. Great Vessels All visible segments of the aorta are normal in size. The pulmonary artery was not well visualized. Venous The inferior vena cava is normal in size and collapses greater than 50% with inspiration. Pericardium/Pleural There is no evidence of pericardial effusion. Prior Study Comparison No previous study in the last 5 years for comparison Measurements 2D Linear Measurements RVIDd: 2.98 RVIDd Index: 1.40 IVSd: 1.13 0.6-0.9/0.6-1.0 cm LVIDd: 4.63 3.9-5.3/4.2-5.9 cm LVIDd Index: 2.17 2.4-3.2/2.2-3.1 cm/m2 LVIDs: 3.55 2.0-3.6 cm LVPWd: 1.26 0.7-1.1 cm Ao Root: 3.40 2.1-3.5 cm LA Diam: 3.30 2.7-3.8/3.0-4.0 cm LAIDs Index: 1.55 1.5-2.3 cm/m2 LV Mass: 256.56 67-162/88-224 g LV Mass Index: 120.45 43-95/49-115 g/m2 LVOT Diam: 2.30 3.0+(-)1.3 cm 2D Systolic Function EF 4C: 52.40 >55% EF 2C: 81.00 >55% Mitral Valve MV Pk E: 0.48 MV PK A: 0.54 MV Decel Time: 287.00 E/A: 0.90 E'Lateral: 9.36 E'Medial: 7.40 E/E' Med: 6.50 E/E' Lat: 5.20 PHT: 84.00 MVA PHT: 2.62 Decel Riley: 1.68 Aortic Valve AoV Pk Ollie: 1.94 AoV Mn Ollie: 1.36 AoV VTI: 0.36 AoV Pk Grad: 15.00 Aov Mn Grad: 9.00 CRISTINA Cont.VTI: 3.69 LVOT LVOT Pk Ollie: 1.56 LVOT Mn Ollie: 1.19 LVOT VTI: 0.32 LVOT Pk Grad: 10.00 LVOT Mn Grad: 6.00 LVOT Diam: 2.30 LVOT Area: 4.15 Diastolic Function MV Pk E: 0.48 MV Pk A: 0.54 E/A: 0.90 E'Medial: 7.40 E/E' Med: 6.50 E' Laterial: 9.36 E/E' Lat: 5.20 Tricuspid Valve TR Pk Ollie: 2.06 TR Pk Grad: 17.00 RA Press: 8.00 RVSP: 25.00 Great Vessels Aorta Ao Root-2D: 3.40 2.0-3.7 cm Ao Asc: 3.30 2.1-3.4 cm Ao Arch: 3.60 Updated in Other Vendor System with Status of Final Manish Kinney MD electronically signed on 09/22/2020 9:00:10 AM with status of Final
--- NOTE | 2020-09-21 10:06 | PC.NURSE ---
gave report to [facility] [place]
[2020-09-21] MEDS: Bumetanide 1 MG TABLET 2 MG PO (11:32)
[2020-09-21] MEDS: Spironolactone 25 MG TABLET PO (11:32)
[2020-09-21] MEDS: 0.9 % Sodium Chloride Flush 3 ML SYRINGE IVFLUSH (11:32)
[2020-09-21] MEDS: Metoprolol Succinate ER 50 MG TAB.ER.24H 25 MG PO (11:34)
[2020-09-21] MEDS: Flu Vacc QS2020-21(6mos up)/PF 0.5 ML SYRINGE IM (11:35)
--- NOTE | 2020-09-21 12:20 | P.CONCA_ITS ---
History of Present Illness History of Present Illness Date of Consult: September 21, 2020 Requesting physician: Eva Jacques Consult reason: atrial fibrillation Chief complaint: symptomatic a fib w rvr Narrative: Thank you for inviting us in consult yvette Higuera. She is a pleasant 64-year-old woman with prior history of highly symptomatic paroxysmal atrial fibrillation, diastolic heart failure, recent diagnosis. Currently on high-dose Bumex therapy as outpatient for what appears to be right heart failure syndrome. She was seen in cardiology clinic by as a new consultation for management of atrial fibrillation, at which time her flecainide was discontinued due to EKG changes of first-degree AV block and left anterior fascicular block. She did well for few weeks was taking her diuretic regimen of Bumex. She said she had responded to the therapy with improving leg edema. Her continues to have exertional shortness of breath. Few days ago she started having recurrent episodes of atrial fibrillation, highly symptomatic. Friday she had more episodes of atrial fibrillation yesterday she had recurrent atrial fibrillation and felt like she was going to pass out. She therefore came to the emergency room. Noted to have supratherapeutic INR. When she came to the emergency room she was in sinus rhythm with left anterior fascicular block. However while in the emergency room she developed recurrent atrial fibrillation and had another near syncopal episode. She has low blood pressure. She also noted to have elevated creatinine consistent with acute kidney injury. She denies any orthopnea, PND, recent chest discomfort. She has had no syncopal episodes. No neurologic events of bleeding issues. Continues to have elevated INR at 3.9 but no overt recent bleeding. No nausea vomiting diarrhea. Review of Systems Constitutional: Constitutional: Reports fatigue and Reports weakness Comments: No fever, chills, body aches, significant weight gain. Or poor appetite Eyes: Eyes: Reports no additional eye complaints ENT: Reports system reviewed and no additional complaints, except as documented Cardiovascular: Cardiovascular: Reports lightheadedness, Reports palpitations and Reports dyspnea on exertion Respiratory: Respiratory: Reports dyspnea on exertion Gastrointestinal: Gastrointestinal: Reports no additional gastrointestinal complaints Neurologic: Reports system reviewed and no additional complaints, except as documented and Reports weakness Psychiatric: Psychiatric: Reports anxiety Endocrine: Endocrine: Reports fatigue and Reports palpitations Hematologic/Lymphatic: Hematologic/Lymphatic: Reports no additional hematologic/lymphatic complaints Allergic/Immunologic: Allergic/Immunologic: Reports no additional allergic/immunologic complaints [facility] Past Medical History Medical History Diastolic heart failure DVT (deep venous thrombosis) Hyperlipidemia BERE (obstructive sleep apnea) Paroxysmal A-fib Peripheral vascular complication of surgical procedure Peripheral vascular disease Family History Family History Father Emphysema, unspecified Mother No problems noted. Brother Atrial fibrillation Sister Atrial fibrillation Surgical History Surgical History H/O hysterectomy for benign disease Hx of vascular surgery Social History Social History Household Members: None Housing: Apartment Do you presently have visiting nurse or other home services: No Alcohol intake: never Smoking Status: Former smoker Tobacco Type: Cigarette Smoked in Last 30 Days: No Smoking Quit Date: 1989 Patient Interested in Nicotine Replacement: No Use of substances other than those prescribed or required for medical reasons: No Have you been hit, kicked, punched, or otherwise hurt by someone within the past year? If so, by whom?: No Do you feel safe in your current relationship?: Yes Is there a partner from a previous relationship who is making you feel unsafe now?: No Are you made to feel afraid or neglected: No Spiritual Healthcare Practices: NONE Yarsani Healthcare Practices: NONE Cultural Healthcare Practices: NONE Advance Directives: No Advance Directives Information Provided: No Do you have thoughts of harming others: None Do you have a plan to hurt others: No Plan Recently lost weight without trying: Yes service: No Current occupational status: retired Meds Allergies Allergy/AdvReac Type Severity Reaction Status Date / Time Sulfa (Sulfonamide Allergy Unknown RASH Verified 09/20/20 20:25 Antibiotics) [SULFA(SULFONAMIDE ANTIBIOTICS)] codeine AdvReac Vomiting Verified 09/20/20 20:25 oxycodone AdvReac Gastrointestinal Verified 09/21/20 10:52 Upset Home Medications Medication Instructions Recorded Confirmed Type bumetanide 2 mg tablet 2 mg PO BID 08/28/20 09/21/20 History metoprolol succinate 50 mg 25 mg PO DAILY 08/28/20 09/21/20 History tablet,extended release 24 hr warfarin 5 mg tablet 2.5 mg PO MOFR 08/28/20 09/21/20 History warfarin [Coumadin] 5 mg PO SUTUWETHSA 09/19/20 09/21/20 History Physical Exam Vital Signs: Vital Signs: Vital Signs Temp Pulse Resp BP Pulse Ox 09/21/20 12:00 98.7 F 75 16 98 09/21/20 11:34 68 100/48 L 09/21/20 11:32 68 100/48 L 09/21/20 11:16 72 20 100/48 L 96 09/21/20 09:52 66 18 115/56 L 97 09/21/20 09:23 66 100/55 L 97 09/21/20 08:55 63 87/52 L 09/21/20 08:37 65 14 91/55 L 98 09/21/20 06:55 70 16 106/62 98 09/21/20 06:00 71 16 105/62 98 09/21/20 04:24 66 16 110/64 97 09/21/20 04:00 80 75 H 101/58 L 97 09/21/20 02:00 78 16 104/55 L 98 09/21/20 00:00 76 16 104/55 L 96 09/20/20 20:18 98.8 F 88 22 H 129/69 95 09/20/20 20:00 98.8 F 88 22 H 129/69 94 Body Mass Index 39.5 Const: General: cooperative, comfortable, no acute distress, alert and awake Nutritional Appearance: obese Orientation/consciousness: patient oriented x3 HENMT: Head: Yes normal to inspection, Yes normocephalic and Yes atraumatic Eyes: General: appearance normal, both eyes and all related structures Neck: Neck: Yes full ROM, Yes trachea midline and Yes no JVD Chest: Chest palpation & inspection: normal inspection of the chest Resp: Effort & Inspection: normal respiratory effort Auscultation: clear to auscultation bilaterally Cardio: Jugular venous distension: no JVD Palpation: normal PMI Rate: regular rate Rhythm: regular rhythm Heart sounds: S1 normal heart sound present and S2 normal heart sound present Peripheral pulses: Peripheral pulses 2+ throughout GI: Inspection: Yes normal to inspection and Yes obesity Auscultation: normal bowel sounds Skin: General skin exam: elasticity normal and turgor normal Neuro: General: patient oriented x3 and no focal motor deficits Extrem: General: Yes no clubbing, cyanosis or edema Psych: Appearance: well kempt Mental Status: mental status grossly normal Speech and movement: Normal speech and movement present Affect: Anxious affect present Results Labs and Meds Result diagrams: 09/20/20 20:33 09/20/20 20:33 Lab results: Laboratory Results - last 24 hr 09/20/20 09/20/20 09/20/20 20:33 20:33 20:38 WBC 9.1 RBC 4.86 Hgb 15.0 Hct 43.5 MCV 89.5 MCH 30.9 MCHC 34.5 RDW 13.5 Plt Count 246 MPV 10.8 Immature Gran % (Auto) 0.2 Neut % (Auto) 60.7 Lymph % (Auto) 28.1 [place] % (Auto) 8.4 Eos % (Auto) 2.2 Baso % (Auto) 0.4 Lymph # (Auto) 2.6 [place] # (Auto) 0.8 Eos # (Auto) 0.2 Baso # (Auto) 0.0 Abs Immat Gran (auto) 0.02 Absolute Neuts (auto) 5.5 Absolute Nucleated RBC 0.000 Nucleated RBC % (auto) 0.0 PT 47.5 H D INR 3.9 H Sodium 136 Potassium 3.8 Chloride 100 Carbon Dioxide 19 L Anion Gap 21 H BUN 32 H Creatinine 1.74 H Estim Creat Clear Calc 40.2 Estimated GFR 30 POC Glucose Random Glucose 163 H Calcium 8.2 L Total Bilirubin 0.8 Direct Bilirubin 0.2 AST 25 ALT 20 Alkaline Phosphatase 128 H Troponin I High Sens B-Natriuretic Peptide Total Protein 7.5 Albumin 4.0 Coronavirus (PCR) 09/20/20 09/20/20 09/21/20 20:38 20:49 06:39 WBC RBC Hgb Hct MCV MCH MCHC RDW Plt Count MPV Immature Gran % (Auto) Neut % (Auto) Lymph % (Auto) [place] % (Auto) Eos % (Auto) Baso % (Auto) Lymph # (Auto) [place] # (Auto) Eos # (Auto) Baso # (Auto) Abs Immat Gran (auto) Absolute Neuts (auto) Absolute Nucleated RBC Nucleated RBC % (auto) PT INR Sodium Potassium Chloride Carbon Dioxide Anion Gap BUN Creatinine Estim Creat Clear Calc Estimated GFR POC Glucose 150 H Random Glucose Calcium Total Bilirubin Direct Bilirubin AST ALT Alkaline Phosphatase Troponin I High Sens 9.4 B-Natriuretic Peptide Total Protein Albumin Coronavirus (PCR) NEGATIVE 09/21/20 09/21/20 07:30 07:30 WBC RBC Hgb Hct MCV MCH MCHC RDW Plt Count MPV Immature Gran % (Auto) Neut % (Auto) Lymph % (Auto) [place] % (Auto) Eos % (Auto) Baso % (Auto) Lymph # (Auto) [place] # (Auto) Eos # (Auto) Baso # (Auto) Abs Immat Gran (auto) Absolute Neuts (auto) Absolute Nucleated RBC Nucleated RBC % (auto) PT INR Sodium Potassium Chloride Carbon Dioxide Anion Gap BUN Creatinine Estim Creat Clear Calc Estimated GFR POC Glucose Random Glucose Calcium Total Bilirubin Direct Bilirubin AST ALT Alkaline Phosphatase Troponin I High Sens 8.8 B-Natriuretic Peptide 210 H Total Protein Albumin Coronavirus (PCR) EKG repeatedly showed normal sinus rhythm with left anterior fascicular block. Assessment and Plan (1) Paroxysmal A-fib: Status: Acute Patient with longstanding history of paroxysmal atrial fibrillation, recently discontinued antiarrhythmic drug therapy with flecainide due to her EKG changes. She presents with recurrent symptomatic atrial fibrillation in setting of Kareem I most likely due to over-diuresis and intravascular volume depletion. Hold off on Bumex for now. Will start on IV fluid normal saline for a total infusion of 1 L. follow-up BMP in near future. Will obtain echocardiogram to assess for LV systolic and diastolic function as well as to evaluate for RV function. Given highly symptomatic nature of atrial fibrillation with most likely require antiarrhythmic drug support in the near future. Given Kareem I and renal insufficiency as well as possible heart failure, will avoid post sotalol as well as Multaq. Flecainide will be avoided given possibility of underlying coronary disease with exertional shortness of breath as well as left anterior fascicular block. Will start her on amiodarone for short term loading. Eventually most likely long-term would require ablation. Will also require hemodynamic as well as coronary evaluation near future which can be done as an outpatient. The plan was discussed with her in details. Will follow the patient. Echocardiogram is being requested as an urgent study. Thank you for allowing me to partake in her care (2) Acute renal failure: Qualifiers: Acute renal failure type: with acute tubular necrosis Qualified Code(s): N17.0 - Acute kidney failure with tubular necrosis Status: Acute (3) BERE (obstructive sleep apnea): Status: Acute
--- NOTE | 2020-09-21 12:26 | MHC.CM.PN ---
pt lives alone. she reports she is independent in caring for herself. she drives a car as well. pt does have two sons, one in [place] and one in [place]. they can help her if she needs it. one of them will be giving her a ride home at [place]. pt worked up until about a year ago at which time she went on STD because she said the job just became too much. STD has run out and now she considers herself early retired. she denies the need for vna at this time. [place] plan is home no svcs. cm to cont. to follow.
[2020-09-21] MEDS: 0.9 % Sodium Chloride 1,000 ML 100 ML IVCONT (12:45)
[2020-09-21 14:14] LABS: Anion Gap 12 (12-20); Blood Urea Nitrogen 21 mg/dL (9-16); Calcium 8.1 mg/dL (8.4-10.2); Carbon Dioxide 30 mmol/L (22-29); Chloride 101 mmol/L (96-108); Estimated Glomerular Filt Rate 51; Glucose Random 207 mg/dL (60-115); Potassium 3.7 mmol/l (3.3-5.1); Sodium 139 mmol/L (135-145)
[2020-09-21] MEDS: Acetaminophen 325 MG TABLET 650 MG PO (16:39)
--- NOTE | 2020-09-21 16:57 | PC.NURSE ---
Pt arrived this afternoon from the ED. Pt denies complaint at this time. SR on monitor. BP soft 100/48. Dr Kinney at the bedside, examined and spoke with pt. As of now, bumex is to be placed on hold. Pt is to recieve 1000ml NS at a rate of 100ml/hr, then is to be encouraged to drink fluids. Pt has had a good appetite and is drinking apple juice and gregory elly. She states she prefers to have ice vs drinking water. Bucket of ice at the bed side. Pt had echo today with [facility]. After the echo, while cleaning off gel, pt found to have slit under left breast. Interdry placed. Will contact MD for further treatment. Pt has been using bedside commode without difficulty. Pt assisted in full bath and bed change.
--- NOTE | 2020-09-21 17:03 | PC.NURSE ---
Pt reporting a sensation like she is laying on a ball when she is supine. She states it is just to the left of her spine. On exam, noted obvious muscle spams in the area indicated. Massage admin. K-pad called for. Pt given APAP and placed on right side for a position of comfort. Pt reports the pain is a 4/10 but is much worse if she is laying on it. She states the pain started sometime after arriving at the hospital.
--- NOTE | 2020-09-21 17:05 | PC.NURSE ---
Pt has a #20 IV LAC which was placed by EMS prior to arrival at the hospital. The IV was continuing to have down stream occlusion alarms and was uncomfortable for the pt. IV removed. #20 IV placed left lower arm and wrapped for protection.
[2020-09-21] MEDS: Amiodarone HCL 200 MG TABLET PO (21:30)
[2020-09-22] VITALS: BP 107/55; PULSE 63; RESP 18; TEMP 36.7; O2SAT 94
[2020-09-22] MEDS: 0.9 % Sodium Chloride Flush 3 ML SYRINGE IVFLUSH ×2 (00:19→08:56)
[2020-09-22 04:00] VITALS: BP 130/57; PULSE 55; RESP 18; TEMP 36; O2SAT 98
[2020-09-22 05:33] LABS: MANUAL DIFF FLAG NO
[2020-09-22 06:00] VITALS: BMI 39.9
[2020-09-22 06:06] LABS: Anion Gap 12 (12-20); Blood Urea Nitrogen 21 mg/dL (9-16); Carbon Dioxide 29 mmol/L (22-29); Chloride 103 mmol/L (96-108); Creatinine Clr Calc Pharmacy 68.9; Estimated Glomerular Filt Rate 55; Glucose Random 135 mg/dL (60-115); Potassium 4.2 mmol/l (3.3-5.1); Sodium 140 mmol/L (135-145)
[2020-09-22 06:16] LABS: Basophils Percent Auto 0.6 % (0-2); Eosinophils Absolute Auto 0.2 X10*3/uL (0.0-0.4); Eosinophils Percent Auto 3.5 % (0-4); Hematocrit 38.6 % (37-47); Hemoglobin 12.8 g/dl (12.0-16.0); Imm Gran Abs Auto 0.02 X10*3/uL (0.00-0.03); Imm Gran Pct Auto 0.3 % (0.0-0.4); Lymphocytes Absolute Auto 2.4 X10*3/uL (1.2-4.9); Lymphocytes Percent Auto 36.8 % (20-40); Mean Corpuscular HGB Conc 33.2 g/dl (31.0-35.0); Mean Corpuscular Hemoglobin 30.7 pg (27.0-33.0); Mean Corpuscular Volume 92.6 fL (80-98); Mean Platelet Volume 10.7 fL (9.4-12.3); Monocytes Absolute Auto 0.6 X10*3/uL (0.1-1.2); Monocytes Percent Auto 9.4 % (2-11); Neutrophils Absolute Auto 3.3 X10*3/uL (2.0-8.3); Neutrophils Percent Auto 49.4 % (45-73); Platelet Count 215 X10*3/uL (160-400); Red Blood Count 4.17 X10*6/uL (4.20-5.50); White Blood Count 6.6 X10*3/uL (4.8-10.8)
[2020-09-22 08:00] VITALS: BP 114/58; PULSE 63; RESP 18; TEMP 36.3; O2SAT 97
[2020-09-22 08:13] LABS: INTERNATIONAL NORM RATIO 2.3 (0.9-1.1); Prothrombin Time 27.5 SEC (10.8-13.0)
[2020-09-22 08:56] VITALS: BP 105/61; PULSE 60
[2020-09-22] MEDS: Amiodarone HCL 200 MG TABLET PO (08:56)
[2020-09-22 08:57] VITALS: BP 105/61; PULSE 60
[2020-09-22] MEDS: Spironolactone 25 MG TABLET PO (08:57)
[2020-09-22] MEDS: Acetaminophen 325 MG TABLET 650 MG PO (09:01)
[2020-09-22 11:28] VITALS: BP 106/55; PULSE 60; RESP 18; TEMP 36.4; O2SAT 95
--- NOTE | 2020-09-22 12:55 | P.PNCAR_ITS ---
Subjective Subjective Principal diagnosis: atrial fibrillation with rapid ventricular response, symptomatic Interval history: patient feeling better. Renal function is normalized. Remains in sinus rhythm. Tolerating amiodarone at current dose. Echocardiogram shows normal biventricular systolic function. Blood pressure is on the lower side but stable Review of Systems Constitutional: Reports weakness Eyes: Reports no additional eye complaints Cardiovascular: Reports no additional cardiovascular complaints Respiratory: Reports no additional respiratory complaints Reports system reviewed and no additional complaints, except as documented and Reports weakness Psychiatric: Reports anxiety Allergic/Immunologic: Reports no additional allergic/immunologic complaints Physical Exam Vital Signs: Vital Signs Temp Pulse Resp BP Pulse Ox 09/22/20 11:28 97.6 F 60 18 106/55 L 95 09/22/20 08:57 60 105/61 09/22/20 08:56 60 105/61 09/22/20 08:00 97.3 F 63 18 114/58 L 97 09/22/20 04:00 96.8 F 55 18 130/57 L 98 09/22/20 00:00 98.1 F 63 18 107/55 L 94 09/21/20 21:30 68 99/55 L 09/21/20 19:48 97.9 F 72 21 H 109/67 95 09/21/20 15:59 98.7 F 71 24 H 103/52 L 95 Body Mass Index 39.9 Const General: cooperative, no acute distress, alert and awake Nutritional Appearance: obese Orientation/consciousness: patient oriented x3 HENMT Head: Yes normal to inspection, Yes normocephalic and Yes atraumatic Ears: hearing grossly normal bilaterally Eyes General: appearance normal, both eyes and all related structures Neck Neck: Yes full ROM, Yes trachea midline and Yes no JVD Chest Chest palpation & inspection: normal inspection of the chest Resp Effort & Inspection: normal respiratory effort Auscultation: clear to auscultation bilaterally Cardio Jugular venous distension: no JVD Rate: regular rate Rhythm: regular rhythm Heart sounds: S1 normal heart sound present and S2 normal heart sound present GI Auscultation: normal bowel sounds Skin General skin exam: no rashes or lesions noted Neuro General: patient oriented x3 and no focal motor deficits Extrem General: Yes no clubbing, cyanosis or edema Results Labs and Meds Result diagrams: 09/22/20 04:35 09/22/20 04:35 Lab results: Laboratory Results - last 24 hr 09/21/20 09/22/20 09/22/20 13:37 04:35 04:35 WBC 6.6 RBC 4.17 L Hgb 12.8 Hct 38.6 MCV 92.6 MCH 30.7 MCHC 33.2 RDW 14.0 Plt Count 215 MPV 10.7 Immature Gran % (Auto) 0.3 Neut % (Auto) 49.4 Lymph % (Auto) 36.8 [place] % (Auto) 9.4 Eos % (Auto) 3.5 Baso % (Auto) 0.6 Lymph # (Auto) 2.4 [place] # (Auto) 0.6 Eos # (Auto) 0.2 Baso # (Auto) 0.0 Abs Immat Gran (auto) 0.02 Absolute Neuts (auto) 3.3 Absolute Nucleated RBC 0.000 Nucleated RBC % (auto) 0.0 PT INR Sodium 139 140 Potassium 3.7 4.2 Chloride 101 103 Carbon Dioxide 30 H 29 Anion Gap 12 12 BUN 21 H 21 H Creatinine 1.08 1.02 Estim Creat Clear Calc 65.0 68.9 Estimated GFR 51 55 Random Glucose 207 H 135 H Calcium 8.1 L 8.0 L 09/22/20 07:43 WBC RBC Hgb Hct MCV MCH MCHC RDW Plt Count MPV Immature Gran % (Auto) Neut % (Auto) Lymph % (Auto) [place] % (Auto) Eos % (Auto) Baso % (Auto) Lymph # (Auto) [place] # (Auto) Eos # (Auto) Baso # (Auto) Abs Immat Gran (auto) Absolute Neuts (auto) Absolute Nucleated RBC Nucleated RBC % (auto) PT 27.5 H D INR 2.3 H Sodium Potassium Chloride Carbon Dioxide Anion Gap BUN Creatinine Estim Creat Clear Calc Estimated GFR Random Glucose Calcium Progress Note: A&P Assessment and plan (1) Paroxysmal A-fib: Status: Acute Assessment and Plan: highly symptomatic paroxysmal atrial fibrillation Currently remaining normal sinus rhythm with improved symptoms. Will continue amiodarone for short term and eventually refer for ablation after undergoing cardiac catheterization to evaluate for hemodynamics as well as coronary anatomy. This will be scheduled in near future as an outpatient. Patient will follow-up with Dr. Butterfield as out patient. continue warfarin therapy with target INR between 2 and 3. patient can be discharged from cardiac perspective. (2) Acute renal failure: Status: Acute Assessment and Plan: This has resolved with IV fluid. Reduce Bumex to 2 mg daily, will most likely over diuresed. Right heart failure diagnosis needs to be further investigated with cardiac catheterization. Fall Risk Details Current Medications: Current Medications Generic Name Dose Route Start Last Admin Trade Name Freq PRN Reason Stop Dose Admin Acetaminophen 650 mg 09/21/20 09:57 09/22/20 09:01 Acetaminophen 325 Mg Tablet PO 650 mg Q6H PRN Administration Pain, Mild (Pain Scale 1-3) Amiodarone HCl 200 mg 09/21/20 21:00 09/22/20 08:56 Amiodarone Hcl 200 Mg Tablet PO 200 mg BID GIOVANNA Administration Metoprolol Succinate 25 mg 09/21/20 09:57 09/22/20 08:58 Metoprolol Succinate Er 50 Mg Tab.Er.24h PO Not Given DAILY GIOVANNA Protocol Ondansetron HCl 4 mg 09/21/20 09:57 Ondansetron Hcl 4 Mg/2 Ml Vial IVPUSH Q8H PRN Nausea and Vomiting Sodium Chloride 3 ml 09/21/20 09:57 09/22/20 08:56 0.9 % Sodium Chloride Flush 3 Ml Syringe IVFLUSH 3 ml QSHIFT GIOVANNA Administration Spironolactone 25 mg 09/21/20 09:57 09/22/20 08:57 Spironolactone 25 Mg Tablet PO 25 mg DAILY GIOVANNA Administration Protocol Time Spent With Patient Time: Total time spent is greater than 50% in coordination of care (as documented) at patient's floor/unit and/or counseling patient: Time with patient: 15 - 24 minutes
--- NOTE | 2020-09-22 14:20 | P.DS_ITS ---
DS: Providers Provider Date of admission: 09/21/20 06:40 Primary care physician: Unknown Physician Consults: 09/21/20 07:57 Consult to Cardiology Routine Consulting Provider: John Helton Reason for consultation: symptomatic afib Has provider been notified: Yes 09/21/20 09:57 Consult to Cardiology Routine Consulting Provider: Manish Kinney Reason for consultation: A.fib with RVR - symptomatic Has provider been notified: No 09/21/20 11:08 Consult Respiratory Therapy Routine Reason for consultation: BEDTIME CPAP USE AT HOME. UNABLE TO BRING IN MACHINE DS: Diagnosis Discharge Diagnosis (1) Paroxysmal A-fib: Status: Acute (2) Acute renal failure: Status: Acute DS: Summary Hospital Course Hospital Course: HPI from admission on 09/21/[address] Rocha Chief Complaint: palpitations 64-year-old female with past medical history of paroxysmal AFib who presents to the hospital complaining of intermittent episodes of palpitations, weakness, and just generally not feeling too well since Friday. Patient reports that she had an episode of almost blacking out after developing palpitations yesterday while doing laundry. She takes metoprolol and Coumadin for AFib, Coumadin has been placed on hold since Friday for supratherapeutic INR. She denies having any shortness of breath, complaining of sharp left-sided chest pain, nonradiating, 5/10, localized to the area under the left breast, she has no lower extremity edema but reports shortness of breath more than usual since Friday,, no orthopnea or PND. She has no nausea vomiting diarrhea or constipation. No urinary symptoms on arrival to the ED hemodynamically stable with no significant abnormal vitals, labs are significant for a PT of 47.5 an INR of 3.9, BUN of 32 and a creatinine of 1.74 (baseline around 1.2), EKG showed normal sinus rhythm initially, but while boarding in the ED this morning patient developed an episode of AFib with RVR with heart rate going to 140 and patient having symptoms of almost blacking out. Patient converted back to sinus spontaneously with no intervention troponin is 9.4. Hospital Course: Patient was admitted to the hospital and closely monitored on color television console monitor. She has been in normal sinus and was evaluated by cardiology and has been started on Amiodarone 200mg bid for a month, then 200 mg daily. She has previously been on Flaicanide but discontinued due to ECG changes. Ultimately she will need cardiac catherization and ablation and this will be arranged on outpatient basis. Of note she was in acute renal failure on admission likely from too much Bumex. Creatinine has normalized from 1.74 to 1.02 now. Bumex is being reduced to 2 mg daily from twice daily. Also her INR had been elevated since 09/18 at 6.7 and presently 2.3 and will resume coumadin at 2.5 mg daily not alternating with 5 mgd on SUTUWETHSA. She should follow up with coumadin clinic on Friday Time Spent with Patient Time attestation: Total time spent providing and/or coordinating discharge services: Physical Exam Vital Signs: Vital Signs: Vital Signs Temp Pulse Resp BP Pulse Ox 09/22/20 11:28 97.6 F 60 18 106/55 L 95 09/22/20 08:57 60 105/61 09/22/20 08:56 60 105/61 09/22/20 08:00 97.3 F 63 18 114/58 L 97 09/22/20 04:00 96.8 F 55 18 130/57 L 98 09/22/20 00:00 98.1 F 63 18 107/55 L 94 09/21/20 21:30 68 99/55 L 09/21/20 19:48 97.9 F 72 21 H 109/67 95 09/21/20 15:59 98.7 F 71 24 H 103/52 L 95 Body Mass Index 39.9 DS: Data Data Completed and Pending Labs on day of discharge: Laboratory Tests 09/22/20 04:35 WBC 6.6 Hgb 12.8 Hct 38.6 Laboratory Tests 09/18/20 09/19/20 09/20/20 15:30 17:46 20:38 INR 6.7 H* 5.9 H* 3.9 H 09/22/20 07:43 INR 2.3 H Laboratory Tests 09/20/20 09/21/20 09/22/20 20:33 13:37 04:35 Creatinine 1.74 H 1.08 1.02 Discharge Plan Discharge Anticipated Discharge Date/Time: 09/22/20 14:16 Patient Disposition: Home, Self-Care Referrals: Physician,Unknown [Primary Care Provider] - Discharge Medications: New amiodarone 200 mg Tablet 200 mg PO BID Qty: 120 RF: 0 Continued spironolactone 25 mg tablet 25 mg PO DAILY 60 Days Qty: 60 RF: 3 metoprolol succinate 50 mg tablet extended release 24 hr 25 mg PO DAILY RF: 0 Changed bumetanide 2 mg tablet 2 mg PO DAILY Qty: 0 RF: 0 warfarin 5 mg tablet 2.5 mg PO DAILY Qty: 0 RF: 0 Discontinued warfarin [Coumadin] 5 mg Tablet 5 mg PO SUTUWETHSA RF: 0 Discharge Orders: Discharge Order (Routine); Ordered 09/22/20 Ordered By: Isma Grigsby Diet: advance to your usual diet Activity on Discharge: As tolerated Visit Report Forms: Patient Portal Discharge page Care Plan Goals: To control Atrial fibrilation Health Concerns: recurrent atrial fibrilation and associated symptoms Plan of Treatment: Take amiodarone as recommended, follow up with Dr. Butterfield for cardiac catherization and later ablation for atrial fibrilation. Continue Bumex but at reduce dose of 2 mg daily, no longer twice a day. Also take amiodarone as recommended and follow up with your Doctor within a week. Have INR level check on Friday. Take coumadin 2.5 mg daily
[2020-09-22 14:29] VITALS: BMI 39.9
--- NOTE | 2020-09-22 14:37 | MHC.CM.PN ---
Patient is discharging home today no services. Patient reports one of her sons is going to provide transport.
== END 2020-09-22 15:18 | disposition home or self-care (01) | DRG 201 ==
LOC: HO.ED 09-21 06:36 → HO.ICU 09-21 07:32 → HO.IMC 09-21 20:51
PROVIDERS: Emergency Medicine; Admitting Provider Internal Medicine; Emergency Provider Internal Medicine; Visit Provider Internal Medicine
DX: I48.0 Paroxysmal atrial fibrillation (principal); N17.0 Acute kidney failure with tubular necrosis; I50.32 Chronic diastolic (congestive) heart failure; Z20.828 Contact with and (suspected) exposure to other viral communicable diseases; E78.5 Hyperlipidemia, unspecified; G47.33 Obstructive sleep apnea (adult) (pediatric); E66.9 Obesity, unspecified; Z68.39 Body mass index [BMI] 39.0-39.9, adult; Z23 Encounter for immunization; Z86.718 Personal history of other venous thrombosis and embolism; Z87.891 Personal history of nicotine dependence; Z88.2 Allergy status to sulfonamides; Z88.5 Allergy status to narcotic agent; Z79.01 Long term (current) use of anticoagulants; Z79.899 Other long term (current) drug therapy
CPT/HCPCS: 36415; 70450; 71045; 71046; 80048; 80076; 81001; 82947; 83735; 83880; 84484; 85025; 85610; 87635; 90686; 93005; 93306; 94660; 96361; 96374; 99212; 99284; 99285

== ENCOUNTER → 2020-09-27 15:55 | Outpatient (BNVA) | payer BC, SELFPAY | PROVIDERS: Visit Provider Internal Medicine | DX: I48.0 Paroxysmal atrial fibrillation (principal); Z51.81 Encounter for therapeutic drug level monitoring; Z79.01 Long term (current) use of anticoagulants | CPT/HCPCS: 85610; 99212 ==

== ENCOUNTER → 2020-10-06 15:18 | Outpatient (BNVA) | payer BC, SELFPAY | PROVIDERS: PCP Nurse Practitioner Family; Visit Provider Internal Medicine | DX: I48.0 Paroxysmal atrial fibrillation (principal); Z51.81 Encounter for therapeutic drug level monitoring; Z79.01 Long term (current) use of anticoagulants | CPT/HCPCS: 85610; 99211 ==

== ENCOUNTER → 2020-10-09 10:12 | Outpatient (BNVA) | payer BC, SELFPAY | PROVIDERS: PCP Internal Medicine; Visit Provider Internal Medicine | DX: I48.0 Paroxysmal atrial fibrillation (principal); Z51.81 Encounter for therapeutic drug level monitoring; Z79.01 Long term (current) use of anticoagulants | CPT/HCPCS: 85610; 99211 ==

== ENCOUNTER → 2020-10-16 11:11 | Outpatient (BNVA) | payer BC, SELFPAY | PROVIDERS: PCP Internal Medicine; Visit Provider Internal Medicine | DX: I48.0 Paroxysmal atrial fibrillation (principal); Z51.81 Encounter for therapeutic drug level monitoring; Z79.01 Long term (current) use of anticoagulants; R06.00 Dyspnea, unspecified; I50.30 Unspecified diastolic (congestive) heart failure; E66.9 Obesity, unspecified; Z68.39 Body mass index [BMI] 39.0-39.9, adult; Z98.890 Other specified postprocedural states | CPT/HCPCS: 85610; 99211 ==

== ENCOUNTER → 2020-10-23 10:31 | Outpatient (BNVA) | payer BC, SELFPAY | PROVIDERS: PCP Nurse Practitioner Family; Visit Provider Internal Medicine | DX: I48.0 Paroxysmal atrial fibrillation (principal); Z51.81 Encounter for therapeutic drug level monitoring; Z79.01 Long term (current) use of anticoagulants | CPT/HCPCS: 85610; 99211 ==

== ENCOUNTER → 2020-10-30 10:40 | Outpatient (BNVA) | payer BC, SELFPAY | PROVIDERS: PCP Nurse Practitioner Family; Visit Provider Internal Medicine | DX: I48.0 Paroxysmal atrial fibrillation (principal); Z79.01 Long term (current) use of anticoagulants; Z51.81 Encounter for therapeutic drug level monitoring | CPT/HCPCS: 85610 ==

== ENCOUNTER → 2020-11-15 14:56 | Outpatient (BNVA) | payer BC, SELFPAY | PROVIDERS: PCP Nurse Practitioner Family; Visit Provider Internal Medicine | DX: I48.0 Paroxysmal atrial fibrillation (principal); Z79.01 Long term (current) use of anticoagulants; Z51.81 Encounter for therapeutic drug level monitoring | CPT/HCPCS: 85610; 99211 ==

== ENCOUNTER → 2020-12-04 15:28 | Outpatient (BNVA) | payer OTHER, SELFPAY | PROVIDERS: PCP Nurse Practitioner Family; Visit Provider Internal Medicine | DX: I48.0 Paroxysmal atrial fibrillation (principal); Z79.01 Long term (current) use of anticoagulants; Z51.81 Encounter for therapeutic drug level monitoring | CPT/HCPCS: 85610; 99211 ==

== ENCOUNTER → 2020-12-05 10:44 | Outpatient (BNVA) | payer OTHER, SELFPAY | PROVIDERS: PCP Internal Medicine; Referring Provider Internal Medicine; Visit Provider Psychiatry & Neurology Neurology | DX: Z76.89 Persons encountering health services in other specified circumstances (principal) ==

== ENCOUNTER → 2021-01-03 16:26 | Outpatient (BNVA) | payer OTHER, SELFPAY | PROVIDERS: PCP Internal Medicine; Visit Provider Internal Medicine | DX: I48.0 Paroxysmal atrial fibrillation (principal); Z51.81 Encounter for therapeutic drug level monitoring; Z79.01 Long term (current) use of anticoagulants | CPT/HCPCS: 85610; 99211 ==

== ENCOUNTER → 2021-01-31 15:45 | Outpatient (BNVA) | payer OTHER, SELFPAY | PROVIDERS: PCP Internal Medicine; Visit Provider Internal Medicine | DX: I48.0 Paroxysmal atrial fibrillation (principal); Z51.81 Encounter for therapeutic drug level monitoring; Z79.01 Long term (current) use of anticoagulants | CPT/HCPCS: 85610; 99211 ==

== ENCOUNTER → 2021-02-13 10:45 | Outpatient (BNVA) | payer OTHER, SELFPAY | PROVIDERS: PCP Internal Medicine; Visit Provider Psychiatry & Neurology Neurology ==

== ENCOUNTER → 2021-02-19 15:29 | Outpatient (BNVA) | payer OTHER, SELFPAY | PROVIDERS: PCP Internal Medicine; Visit Provider Internal Medicine | DX: I48.0 Paroxysmal atrial fibrillation (principal); Z51.81 Encounter for therapeutic drug level monitoring; Z79.01 Long term (current) use of anticoagulants | CPT/HCPCS: 85610; 99211 ==

== ENCOUNTER 2021-02-26 15:34 | Outpatient (REF) | payer OTHER, SELFPAY ==
[2021-02-26 17:17] LABS: Hematocrit 42.2 % (37-47); Hemoglobin 14.2 g/dl (12.0-16.0); Mean Corpuscular HGB Conc 33.6 g/dl (31.0-35.0); Mean Corpuscular Hemoglobin 30.9 pg (27.0-33.0); Mean Corpuscular Volume 91.7 fL (80-98); Mean Platelet Volume 10.5 fL (9.4-12.3); Platelet Count 285 X10*3/uL (160-400); Red Cell Distribution Width 13.6 % (11.0-16.0); White Blood Count 8.5 X10*3/uL (4.8-10.8)
[2021-02-26 17:22] LABS: Prothrombin Time 23.5 SEC (10.8-13.0)
[2021-02-26 18:01] LABS: Alanine Aminotransferase 21 U/L (0-31); Albumin Level 4.2 g/dL (3.5-5.0); Alkaline Phosphatase 112 U/L (39-117); Anion Gap 13 (12-20); Aspartate Amino Transferase 19 U/L (5-31); Bilirubin Direct 0.2 mg/dL (0.0-0.5); Bilirubin Total 0.5 mg/dL (0.0-1.0); Blood Urea Nitrogen 25 mg/dL (9-16); Calcium 9.1 mg/dL (8.4-10.2); Carbon Dioxide 29 mmol/L (22-29); Chloride 100 mmol/L (96-108); Cholesterol 217 mg/dL; Creatinine Urine 47.97 mg/dL; Estimated Glomerular Filt Rate 36; Glucose Fasting 123 mg/dL (60-99); HDL Cholesterol 42 mg/dL; LDL Cholesterol Calculated 128 mg/dl; Microalbumin Urine < 5.0 mg/L; Potassium 4.1 mmol/L (3.3-5.1); Sodium 138 mmol/L (135-145); Total Protein 7.5 g/dL (6.5-8.0); Triglycerides 239 mg/dL
[2021-02-26 18:22] LABS: TSH reflex Free T4 1.36 uIU/mL (0.32-4.0); TSH reflex Free T4 1.52 uIU/mL (0.32-4.0)
[2021-02-27 03:40] LABS: Estimated Average Glucose 137 mg/dL; Hemoglobin A1c % 6.4 %
== END 2021-02-26 15:35 | disposition home or self-care (01) ==
LOC: HO.LAB 15:34
PROVIDERS: Internal Medicine; PCP Internal Medicine; Visit Provider Internal Medicine Cardiovascular Disease
DX: I48.0 Paroxysmal atrial fibrillation (principal); R06.00 Dyspnea, unspecified; I50.30 Unspecified diastolic (congestive) heart failure; R73.9 Hyperglycemia, unspecified; Z79.899 Other long term (current) drug therapy; Z79.01 Long term (current) use of anticoagulants; Z87.891 Personal history of nicotine dependence; Z51.81 Encounter for therapeutic drug level monitoring
CPT/HCPCS: 36415; 80053; 80061; 80076; 82043; 82248; 83036; 84443; 85027; 85610

== ENCOUNTER 2021-03-05 16:05 | Outpatient (REF) | payer OTHER, SELFPAY ==
--- NOTE | 2021-03-05 17:25 | PFT_ITS ---
INDICATION: Therapeutic drug monitoring. SPIROMETRY: The FEV1 to FVC 86% with an FEV1 of 2.33 L, which is 88% predicted, and an FVC of 2.7 L, which is 78% predicted. The maximum voluntary ventilation 106% predicted. LUNG VOLUMES: Total lung capacity 86% predicted with an expiratory reserve volume of 12% predicted likely secondary to an elevated BMI. DIFFUSION CAPACITY: DLCO 74% predicted. COMPARISONS: Not available. INTERPRETATION: No obstructive nor restrictive ventilatory defects identified. No significant response to bronchodilators noted. Normal maximum voluntary ventilation. Lung volumes are normal except for decrease in the expiratory reserve volume secondary to an elevated BMI. The patient does have a mild diffusion impairment. Clinical correlation warranted. No evidence of any underlying interstitial process of this time. Steven Castillo MD MR/MODL / [id number]
== END 2021-03-05 16:06 | disposition home or self-care (01) ==
LOC: HO.RESP 16:05
PROVIDERS: PCP Internal Medicine; Visit Provider Internal Medicine Cardiovascular Disease
DX: R06.02 Shortness of breath (principal); Z51.81 Encounter for therapeutic drug level monitoring
CPT/HCPCS: 94060; 94727; 94729

== ENCOUNTER 2021-03-07 12:11 | Outpatient (REF) | payer OTHER, SELFPAY ==
--- NOTE | ~2021-03-07 | XR_ITS ---
EXAMINATION: XR BILATERAL HIPS WITH AP PELVIS CLINICAL INFORMATION: Bilateral hip pain. COMPARISON: CT pelvis 04/24/2020. TECHNIQUE: Bilateral AP and bilateral frog lateral projection the hips are obtained for a total of 4 views. FINDINGS: There is no fracture or dislocation or destructive process. No focal hip joint narrowing or erosive change or visible chondrocalcinosis. There is borderline spur superior aspect right greater trochanter. There is osteitis pubis present. Borderline degenerative changes inferior SI joints. XR/XR hips DAINA min 3V IMPRESSION: 1. No hip joint narrowing or erosive change. 2. Osteitis pubis.
[2021-03-07 14:36] LABS: Anion Gap 12 (12-20); Blood Urea Nitrogen 20 mg/dL (9-16); Calcium 9.5 mg/dL (8.4-10.2); Carbon Dioxide 25 mmol/L (22-29); Chloride 106 mmol/L (96-108); Estimated Glomerular Filt Rate 44; Glucose Random 103 mg/dL (60-115); Potassium 4.8 mmol/L (3.3-5.1); Sodium 138 mmol/L (135-145)
[2021-03-07 14:55] LABS: Creatinine Urine 124.77 mg/dL; Microalbumin Urine < 5.0 mg/L
== END 2021-03-07 12:12 | disposition home or self-care (01) ==
LOC: HO.HMGCLDS 12:11
PROVIDERS: PCP Internal Medicine; Visit Provider Internal Medicine
DX: I48.0 Paroxysmal atrial fibrillation (principal); I50.30 Unspecified diastolic (congestive) heart failure; M25.551 Pain in right hip; M25.552 Pain in left hip
CPT/HCPCS: 36415; 73522; 80048; 82043

== ENCOUNTER → 2021-03-20 10:50 | Outpatient (BNVA) | payer OTHER, SELFPAY | PROVIDERS: PCP Internal Medicine; Visit Provider Internal Medicine | DX: I48.0 Paroxysmal atrial fibrillation (principal); Z51.81 Encounter for therapeutic drug level monitoring; Z79.01 Long term (current) use of anticoagulants | CPT/HCPCS: 85610; 99211 ==

== ENCOUNTER → 2021-03-26 11:03 | Outpatient (BNVA) | payer OTHER, SELFPAY | PROVIDERS: PCP Internal Medicine; Visit Provider Internal Medicine | DX: I48.0 Paroxysmal atrial fibrillation (principal); Z51.81 Encounter for therapeutic drug level monitoring; Z79.01 Long term (current) use of anticoagulants | CPT/HCPCS: 85610; 99211 ==

== ENCOUNTER → 2021-04-05 11:25 | Outpatient (BNVA) | payer OTHER, SELFPAY | PROVIDERS: PCP Internal Medicine; Visit Provider Surgery Vascular Surgery ==

== ENCOUNTER → 2021-04-06 09:43 | Outpatient (BNVA) | payer OTHER, SELFPAY | PROVIDERS: PCP Internal Medicine; Visit Provider Internal Medicine | DX: I48.0 Paroxysmal atrial fibrillation (principal); Z51.81 Encounter for therapeutic drug level monitoring; Z79.01 Long term (current) use of anticoagulants | CPT/HCPCS: 85610; 99211 ==

== ENCOUNTER 2021-04-12 12:50 | Outpatient (REF) | payer OTHER, SELFPAY ==
--- NOTE | ~2021-04-12 | US_ITS ---
EXAMINATION: BILATERAL LOWER EXTREMITY VENOUS ULTRASOUND (Reflux Exam) CLINICAL INDICATION: This is a 65-year-old female with venous insufficiency. Varicose veins. COMPARISON: None. TECHNIQUE: Color flow triplex imaging and compression Doppler was performed to evaluate both the deep and the superficial systems bilaterally. To evaluate the superficial system, the examination was performed in the upright position. Color-flow Doppler ultrasound and compression ultrasound were utilized. In addition, maneuvers were utilized to demonstrate reflux. FINDINGS: 1. DEEP VENOUS ULTRASOUND OF THE RIGHT LOWER EXTREMITY: Common Femoral Vein: Compressible, normal respiratory variation and augmented flow. Femoral vein: Compressible, normal color flow and augmentation. Popliteal Vein: Compressible, normal augmentation. Deep Reflux: There is no evidence of reflux in the deep system in either the common femoral vein or the popliteal vein. . There is no evidence of a Perez's cyst. 2. SUPERFICIAL ULTRASOUND WITH DOPPLER OF RIGHT LOWER EXTREMITY GREAT SAPHENOUS VEIN: Saphenofemoral junction: 1.0 cm Mid thigh: 0.6 cm Above knee: 0.4 cm Below knee: 0.3 cm Mid calf: 0.3 cm Ankle: 0.3 cm GSV REFLUX: No evidence of reflux. DUPLICATED GREAT SAPHENOUS VEIN: There is a duplicated lateral great saphenous vein measuring 0.5 cm without reflux. SMALL SAPHENOUS VEIN: Upper: 0.6 cm Lower: 0.4 cm SSV REFLUX: No evidence of reflux. VEIN OF GIACOMINI: None Imaged. PERFORATORS: There are 0.4 cm perforators in the distal calf without reflux. VARICOSITIES: There are 0.3 and 0.4 cm varicose veins in the calf without reflux. 3. DEEP VENOUS ULTRASOUND OF THE LEFT LOWER EXTREMITY: Common Femoral Vein: Compressible, normal respiratory variation and augmented flow. Femoral vein: Compressible, normal color flow and augmentation. Popliteal Vein: Compressible, normal augmentation. Deep Reflux: There is no evidence of reflux in the deep system in either the common femoral vein or the popliteal vein. There is no evidence of a Perez's cyst. 4. SUPERFICIAL ULTRASOUND WITH DOPPLER OF LEFT LOWER EXTREMITY GREAT SAPHENOUS VEIN: Saphenofemoral junction: 0.9 cm. There is no reflux this level. Mid thigh: Not seen status post ablation. Above knee: Not seen status post ablation. Below knee: Not seen status post ablation. Mid calf: 0.3 cm. There is no reflux at this level and below. Ankle: 0.3 cm GSV REFLUX: No evidence of reflux. DUPLICATED GREAT SAPHENOUS VEIN: None SMALL SAPHENOUS VEIN: Upper: 0.4 cm Lower: 0.3 cm SSV REFLUX: No evidence of reflux. VEIN OF GIACOMINI: None Imaged. PERFORATORS: 0.2 cm without reflux. VARICOSITIES: There are 0.6 and 0.5 cm, respectively, varicose veins in the thigh and at the knee with greater than 3 seconds of reflux. There are varicose veins in the calf measuring 0.6 in meters with greater than 3 seconds of reflux. US/US venous duplex LE BI IMPRESSION: 1. There is a patent right great saphenous vein without evidence of reflux. 2. There is a patent duplicated right lateral great saphenous vein without reflux. 3. There is a patent right small saphenous vein without evidence of reflux. 4. There are right calf varicose veins measuring 0.3 cm and greater without reflux. 5. The mid thigh to below knee left great saphenous vein is occluded status post ablation. No reflux is seen. 6. The left small saphenous vein is patent without reflux. 7. There are numerous varicose veins in the thigh knee and calf with greater than 3 seconds of reflux.
== END 2021-04-12 12:51 | disposition home or self-care (01) ==
LOC: HO.US 12:50
PROVIDERS: Visit Provider Surgery Vascular Surgery
DX: I83.12 Varicose veins of left lower extremity with inflammation (principal)
CPT/HCPCS: 93970

== ENCOUNTER → 2021-04-19 13:11 | Outpatient (BNVA) | payer OTHER, SELFPAY | PROVIDERS: PCP Internal Medicine; Visit Provider Surgery Vascular Surgery ==

== ENCOUNTER → 2021-04-25 10:30 | Outpatient (BNVA) | payer OTHER, SELFPAY | PROVIDERS: PCP Internal Medicine; Visit Provider Internal Medicine | DX: I48.0 Paroxysmal atrial fibrillation (principal); Z51.81 Encounter for therapeutic drug level monitoring; Z79.01 Long term (current) use of anticoagulants | CPT/HCPCS: 85610; 99211 ==

== ENCOUNTER 2021-04-26 10:48 | Outpatient (REF) | payer OTHER, SELFPAY ==
--- NOTE | ~2021-04-26 | MM_ITS ---
EXAMINATION: MM SCREENING DIGITAL BREAST TOMOSYNTHESIS, BILATERAL CLINICAL INFORMATION: Screening. Asymptomatic. No mammography since 2006, prior exams purged. The lifetime risk of breast cancer based on the Tyrer-Cuzick Model is 6%. COMPARISON: None (current study represents new baseline exam). TECHNIQUE: Digital breast tomosynthesis is performed in both the craniocaudal and mediolateral oblique views along with computer-aided detection (CAD). Synthesized 2D images are generated from the tomosynthesis. FINDINGS: There are scattered areas of fibroglandular density (ACR BI-RADS breast composition Category b). There is fine fibronodular parenchymal pattern. No dominant nodule on left. There is an incidental intramammary node left mid upper outer quadrant. Neither breast shows abnormal calcifications. Skin contours are smooth. The right MLO view nodular asymmetry anterior central 6:30 o'clock position measuring 0.8 x 0.6 cm. Margins are not completely perceptible. Patient will be recalled for additional imaging in the absence of prior studies. MM/MM tomosynthesis screening BI IMPRESSION: 1. Right: Focal nodular asymmetric density anterior 6:30 o'clock position under 1 cm. 2. Left: No mammographic evidence of malignancy. ASSESSMENT: BI-RADS 0: Incomplete - Need Additional Imaging Evaluation RECOMMENDATION: 1. Additional views of the right breast (3D spot ML; 3D spot CC). 2. Targeted ultrasound if warranted after review of the additional views. 3. Radiology department staff will contact the patient for additional imaging. This patient's information was entered into a reminder system with a target due date for their next mammogram.
== END 2021-04-26 10:49 | disposition home or self-care (01) ==
LOC: HO.MAMMO 10:48
PROVIDERS: Visit Provider Internal Medicine
DX: Z12.31 Encounter for screening mammogram for malignant neoplasm of breast (principal)
CPT/HCPCS: 77063; 77067

== ENCOUNTER → 2021-05-01 11:06 | Outpatient (BNVA) | payer OTHER, SELFPAY | PROVIDERS: PCP Internal Medicine; Visit Provider Psychiatry & Neurology Neurology ==

== ENCOUNTER 2021-05-03 13:10 | Outpatient (REF) | payer OTHER, SELFPAY ==
--- NOTE | ~2021-05-03 | MM_ITS ---
EXAMINATION: MM DIAGNOSTIC DIGITAL BREAST TOMOSYNTHESIS, RIGHT CLINICAL INFORMATION: Right breast circumscribed density. COMPARISON: Mammography: 04/26/2021 TECHNIQUE: Digital breast tomosynthesis is performed. 2D images are generated from the tomosynthesis. The following views are obtained: Spot compression craniocaudal and mediolateral oblique views of the right breast. FINDINGS: There are scattered areas of fibroglandular density (ACR BI-RADS breast composition Category b). There is persistence of an approximately 7 x 6 x 4 mm mildly lobulated density without spiculation or calcifications. This lies just below nipple line approximately 4 cm from the nipple. Targeted ultrasound evaluation of the right breast demonstrated a cyst at approximately the 6 o'clock location 2 cm from the nipple. No suspicious solid mass or region of abnormal distal sound shadowing was identified. The cyst measures approximately 5 x 5 x 4 mm in size. Results are discussed with the patient at time of visit. MM/MM tomosynthesis added views R IMPRESSION: Density just inferior to the nipple line and central on craniocaudal view appears to correspond to a right breast cyst at the 6 o'clock position 2 cm from the nipple. ASSESSMENT: BI-RADS 2: Benign. RECOMMENDATION: Routine annual mammography screening. This patient's information was entered into a reminder system with a target due date for their next mammogram.
--- NOTE | ~2021-05-03 | US_ITS ---
EXAMINATION: US DIAGNOSTIC ULTRASOUND BREAST, RIGHT CLINICAL INFORMATION: Density inferior aspect right breast. COMPARISON: Mammography of same day and April 26, 2021. TECHNIQUE: Ultrasound of the breast is performed with real-time de la fuente scale imaging and color Doppler. FINDINGS: At approximately 6:00 position 2 cm from nipple there is noted to be a 7 x 6 x 4 mm cyst. There is no solid mass, architectural abnormality, duct ectasia, or edema in the soft tissue planes. Results are discussed with the patient at time of visit. US/US breast RT limited IMPRESSION: Right breast density corresponds to a cyst ASSESSMENT: BI-RADS 2: Benign RECOMMENDATION: Routine annual mammography screening. This patient's information was entered into a reminder system with a target due date for their next mammogram.
== END 2021-05-03 13:11 | disposition home or self-care (01) ==
LOC: HO.MAMMO 13:10
PROVIDERS: Visit Provider Internal Medicine
DX: R92.2 Inconclusive mammogram (principal)
CPT/HCPCS: 76642; 77061; 77065

== ENCOUNTER → 2021-05-09 10:39 | Outpatient (BNVA) | payer OTHER, SELFPAY | PROVIDERS: PCP Internal Medicine; Visit Provider Internal Medicine | DX: I48.0 Paroxysmal atrial fibrillation (principal); Z51.81 Encounter for therapeutic drug level monitoring; Z79.01 Long term (current) use of anticoagulants | CPT/HCPCS: 85610; 99211 ==

== ENCOUNTER → 2021-05-18 09:28 | Outpatient (BNVA) | payer OTHER, SELFPAY | PROVIDERS: PCP Internal Medicine; Visit Provider Surgery Vascular Surgery | DX: I83.12 Varicose veins of left lower extremity with inflammation (principal) | CPT/HCPCS: 37766 ==

== ENCOUNTER 2021-05-23 10:18 | Outpatient (REF) | payer OTHER, SELFPAY ==
--- NOTE | ~2021-05-23 | MM_ITS ---
EXAMINATION: BONE DENSITOMETRY CLINICAL INDICATION: Asymptomatic menopausal state. COMPARISON: This is the patient's baseline examination. TECHNIQUE: Using a [employer] DXA System (software version: 13.1) manufactured by [employer], dual-energy x-ray absorptiometry was performed of the lumbar spine and left hip. The images are of good technical quality. Summary results are attached. FINDINGS: AP SPINE L1-L4: BMD 0.871 g/cm2, Z-score -2.2, T-score -2.6, osteoporosis. LEFT FEMUR, NECK: BMD 0.603 g/cm2, Z-score -2.4, T-score -3.1, osteoporosis. LEFT FEMUR, TOTAL: BMD 0.804 g/cm2, Z-score -1.3, T-score -1.6, osteopenia. IDENTIFIED RISK FACTORS: Renal, height loss. Early menopause, secondary osteoporosis, hysterectomy, bilateral oophorectomy. HISTORY OF FRACTURE: None listed. MEDICATIONS: Vitamin D. MM/XR DEXA axial skeleton IMPRESSION: 1. DIAGNOSIS: Osteoporosis based on the lowest T-score value of -3.1 in the femoral neck applying World Health Organization criteria. 2. 10-YEAR FRACTURE RISK PREDICTION, FRAX: Major osteoporotic fracture (clinical spine, forearm, hip or shoulder) 14.8%. Hip fracture 4.2%. 3. Treatment Recommendations: NOF guidelines recommend consideration for treatment in postmenopausal women and men age 50 and older presenting with the following: -A hip or vertebral (clinical or morphometric) fracture. -T-score less than or equal to -2.5 at the femoral neck or spine after appropriate evaluation to exclude secondary causes. -Low bone mass at the hip or spine and a 10-year fracture probability by FRAX of greater than or equal to 3% for hip fracture or greater than or equal to 20% for major osteoporotic fracture based on the [place] adapted WHO algorithm. 4. Other Recommendations: All treatment decisions require clinical judgment and consideration of individual patient factors, including patient preferences, comorbidities, previous drug use, risk factors not captured in the FRAX model (e.g. frailty, falls, vitamin D deficiency, increased bone turnover, interval significant decline in bone density) and possible under or overestimation of fracture risk by FRAX. Additional medical evaluation for secondary cause of low bone mineral density may be appropriate. FUTURE SCAN RECOMMENDATION: People with diagnosed cases of osteoporosis or at high risk for fracture should have regular bone mineral density tests. For patients eligible for Medicare, routine testing is allowed once every 2 years. The testing frequency can be increased to one year for patients who have rapidly progressing disease, those who are receiving or discontinuing medical therapy to restore bone mass, or have additional risk factors.
== END 2021-05-23 10:19 | disposition home or self-care (01) ==
LOC: HO.MAMMO 10:18
PROVIDERS: PCP Internal Medicine; Visit Provider Internal Medicine
DX: Z13.820 Encounter for screening for osteoporosis (principal); M81.0 Age-related osteoporosis without current pathological fracture; Z78.0 Asymptomatic menopausal state; Z98.890 Other specified postprocedural states; Z90.722 Acquired absence of ovaries, bilateral; Z79.899 Other long term (current) drug therapy
CPT/HCPCS: 77080

== ENCOUNTER → 2021-05-25 10:23 | Outpatient (BNVA) | payer OTHER, SELFPAY | PROVIDERS: PCP Internal Medicine; Visit Provider Internal Medicine | DX: I48.0 Paroxysmal atrial fibrillation (principal); Z51.81 Encounter for therapeutic drug level monitoring; Z79.01 Long term (current) use of anticoagulants | CPT/HCPCS: 85610; 99211 ==

== ENCOUNTER → 2021-05-31 09:23 | Outpatient (BNVA) | payer OTHER, SELFPAY | PROVIDERS: PCP Internal Medicine; Visit Provider Internal Medicine | DX: I48.0 Paroxysmal atrial fibrillation (principal); I87.2 Venous insufficiency (chronic) (peripheral); Z79.899 Other long term (current) drug therapy; Z51.81 Encounter for therapeutic drug level monitoring; Z79.01 Long term (current) use of anticoagulants | CPT/HCPCS: 85610; 99211 ==

== ENCOUNTER → 2021-06-13 10:07 | Outpatient (BNVA) | payer OTHER, SELFPAY | PROVIDERS: PCP Internal Medicine; Visit Provider Internal Medicine | DX: I48.0 Paroxysmal atrial fibrillation (principal); Z51.81 Encounter for therapeutic drug level monitoring; Z79.01 Long term (current) use of anticoagulants | CPT/HCPCS: 85610; 99211 ==

== ENCOUNTER 2021-06-13 12:56 | Outpatient (REF) | payer OTHER, SELFPAY ==
[2021-06-13 14:01] LABS: Hematocrit 40.8 % (37-47); Hemoglobin 13.5 g/dl (12.0-16.0); Mean Corpuscular HGB Conc 33.1 g/dl (31.0-35.0); Mean Corpuscular Hemoglobin 30.4 pg (27.0-33.0); Mean Corpuscular Volume 91.9 fL (80-98); Mean Platelet Volume 10.4 fL (9.4-12.3); Platelet Count 243 X10*3/uL (160-400); Red Blood Count 4.44 X10*6/uL (4.20-5.50); Red Cell Distribution Width 13.9 % (11.0-16.0); White Blood Count 6.9 X10*3/uL (4.8-10.8)
[2021-06-13 14:33] LABS: Alanine Aminotransferase 18 U/L (0-31); Albumin Level 4.1 g/dL (3.5-5.0); Alkaline Phosphatase 108 U/L (39-117); Anion Gap 13 (12-20); Aspartate Amino Transferase 18 U/L (5-31); Bilirubin Total 0.7 mg/dL (0.0-1.0); Blood Urea Nitrogen 24 mg/dL (9-16); Calcium 9.5 mg/dL (8.4-10.2); Carbon Dioxide 26 mmol/L (22-29); Chloride 104 mmol/L (96-108); Cholesterol 212 mg/dL; Estimated Glomerular Filt Rate 45; Glucose Fasting 116 mg/dL (60-99); HDL Cholesterol 46 mg/dL; LDL Cholesterol Calculated 135 mg/dl; Potassium 4.6 mmol/L (3.3-5.1); Sodium 138 mmol/L (135-145); Total Protein 7.3 g/dL (6.5-8.0); Triglycerides 157 mg/dL
[2021-06-13 14:37] LABS: Estimated Average Glucose 143 mg/dL; Hemoglobin A1c % 6.6 %
[2021-06-13 14:44] LABS: Creatinine Urine 121.36 mg/dL; Microalbumin Urine < 5.0 mg/L
== END 2021-06-13 12:57 | disposition home or self-care (01) ==
LOC: HO.HMGCLDS 12:56
PROVIDERS: PCP Internal Medicine; Visit Provider Internal Medicine
DX: I48.0 Paroxysmal atrial fibrillation (principal); I50.30 Unspecified diastolic (congestive) heart failure; R06.00 Dyspnea, unspecified; R73.9 Hyperglycemia, unspecified
CPT/HCPCS: 36415; 80053; 80061; 82043; 83036; 85027

== ENCOUNTER 2021-06-27 06:14 | Outpatient (REF) | payer OTHER, SELFPAY ==
--- NOTE | ~2021-06-27 | XR_ITS ---
EXAMINATION: XR ANKLE, RIGHT CLINICAL INFORMATION: Pain in right ankle and left foot. COMPARISON: None TECHNIQUE: AP, lateral, and mortise views of the right ankle. FINDINGS: There is minimal bimalleolar soft tissue swelling. The ankle mortise and subtalar joints are normal. There is a small bone fragment tip of medial malleolus likely old injury there is a small calcaneal heel retrocalcaneal enthesophyte. XR/XR ankle RT min 3V IMPRESSION: Bimalleolar soft tissue swelling. Note acute fracture dislocation. Small bone fragment tip of medial malleolus.
== END 2021-06-27 06:15 | disposition home or self-care (01) ==
LOC: HO.HOSX 06:14
PROVIDERS: Visit Provider Physician Assistant
DX: M19.071 Primary osteoarthritis, right ankle and foot (principal)
CPT/HCPCS: 73610

== ENCOUNTER → 2021-07-02 10:56 | Outpatient (BNVA) | payer OTHER, SELFPAY | PROVIDERS: PCP Internal Medicine; Visit Provider Internal Medicine | DX: I48.0 Paroxysmal atrial fibrillation (principal); Z79.01 Long term (current) use of anticoagulants; Z51.81 Encounter for therapeutic drug level monitoring | CPT/HCPCS: 85610; 99211 ==

== ENCOUNTER → 2021-07-24 10:25 | Outpatient (BNVA) | payer OTHER, SELFPAY | PROVIDERS: PCP Internal Medicine; Visit Provider Internal Medicine | DX: I48.0 Paroxysmal atrial fibrillation (principal); Z51.81 Encounter for therapeutic drug level monitoring; Z79.01 Long term (current) use of anticoagulants | CPT/HCPCS: 85610; 99211 ==

== ENCOUNTER 2021-08-09 14:12 | Outpatient (REF) | payer OTHER, SELFPAY | END 2021-08-09 14:13 | disposition home or self-care (01) | LOC: HO.HMGCX 14:12 | PROVIDERS: PCP Internal Medicine; Visit Provider Internal Medicine | DX: Z13.89 Encounter for screening for other disorder (principal) ==

== ENCOUNTER → 2021-08-29 10:58 | Outpatient (BNVA) | payer OTHER, SELFPAY | PROVIDERS: PCP Internal Medicine; Visit Provider Internal Medicine | DX: I48.0 Paroxysmal atrial fibrillation (principal); Z51.81 Encounter for therapeutic drug level monitoring; Z79.01 Long term (current) use of anticoagulants | CPT/HCPCS: 85610; 99211 ==

== ENCOUNTER 2021-08-30 14:00 | Outpatient (RCR) | payer OTHER, SELFPAY ==
--- NOTE | 2021-07-11 13:08 | MHC.PT.EP ---
[facility] [place] Office [place] Office [place] Office [address] Gay Trejo [address] [phone] F: [phone] F: [phone] F: [phone] F: [phone] Physical Therapy Plan of Care Date of Evaluation: Date of Surgery: Diagnosis: This is a 65 yo female presenting to skilled PT with a script for OA R ankle/foot. Assessment: This patient has been referred by [facility] [place] (note states to try PT first and will refer out to podiatry for injections if pain does not resolve). However patient comes in today with multiple complaints. She reports L knee pain ongoing for multiple years on and off with cortisone injections. L knee pain is located anteriorly and is achy and sharp at times. No imaging as of yet for this but it increases in weight bearing positions. Her R ankle pain has been ongoing for about 5 years now. R ankle pain is located at lateral R side and is achy as well. She has a hard time with weight bearing positions and sleeping with this pain. She additionally reports LBP that increases with laying down, standing and sitting. Her back pain is also chronic. Her pain is across the low back and can varying in intensity. Denies radiating symptoms. Today at [facility], she is wearing a R ankle lace up brace which has been helpful, she has been wearing this for about a week. She is also wearing compression stockings. She has sneakers with arch support. No injuries were reported to cause her symptoms and all seem chronic in nature. Gross pain increases with sleeping, stairs, walking and standing. Pain depends and varies. She would like to focus on her L knee and R ankle as her back has not been bothering her too much as of late. Goals include decreasing pain and improve walking tolerance. Assessment reveals pain that can range up to a 10/10. She demos gross decreased ROM and strength, impaired gait with antalgic pattern, ER and knee valgus, impaired ankle and knee joint mobility as well as gross functional decline with transfers, walking, standing and resting postures. She is very deconditioned and has a significant PMHx involving AFIB, HF and on blood thinners. She is a good candidate for skilled PT 2x/wk for 5wks. 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 Manual therapy to restore motion and function. Therapeutic exercise to improve strength and flexibility. Neuromuscular re-education for posture and balance. Therapeutic activities to return to functional activities of daily living. Electronically signed by: Shaniqua Yoon PT Please sign and return to therapist. Thank you for your referral.
--- NOTE | ~2021-08-30 | XR_ITS ---
EXAMINATION: XR KNEE, LEFT CLINICAL INFORMATION: Pain left knee COMPARISON: None TECHNIQUE: Four views of the left knee. FINDINGS: There is mild loss of tricompartment joint space with mild periarticular spurring. No visible acute fracture, dislocation or subluxation seen. There is anterior superior patella and enthesophyte. The soft tissues are normal. XR/XR knee LT 4V IMPRESSION: Tricompartment mild degenerative changes with periarticular spurring. No abnormal joint effusion seen.
--- NOTE | 2021-08-30 16:30 | MHC.PT.DC ---
[facility] [place] Office [place] Office [place] Office [address] Gay Trejo [address] [facility] [phone] F: [phone] F: [phone] F: [phone] F: [phone] Physical Therapy Discharge Report Diagnosis: This is a 65 yo female presenting to skilled PT with a script for OA R ankle/foot. Date of Surgery: Date of Evaluation: 07/11/21 Date of Discharge: 08/30/21 Treatments to Date: 12 Cancellations to Date: 0 No Shows to Date: 0 Discharge Status: Improved Function Independent with HEP Discharge Summary: Davida has been an active participant in her therapy in the clinic with fair home program compliance who has met some of her therapeutic goals, is I with her home program and in agreement with DC at this time. Electronically signed by: Man Zafar PT. Please sign and return to therapist. Thank you for your referral.
== END 2021-08-30 16:31 | disposition home or self-care (01) ==
LOC: HO.PTCHIC 14:00
PROVIDERS: PCP Internal Medicine; Visit Provider Orthopaedic Surgery
DX: M19.071 Primary osteoarthritis, right ankle and foot (principal)
CPT/HCPCS: 73564; 97014; 97110; 97112; 97140; 97162

== ENCOUNTER → 2021-09-04 09:47 | Outpatient (BNVA) | payer OTHER, SELFPAY | PROVIDERS: PCP Internal Medicine; Referring Provider Internal Medicine; Visit Provider Psychiatry & Neurology Neurology ==

== ENCOUNTER 2021-09-26 11:03 | Outpatient (REF) | payer OTHER, MEDICARE, SELFPAY ==
[2021-09-26 15:24] LABS: Alanine Aminotransferase 26 U/L (0-31); Albumin Level 4.1 g/dL (3.5-5.0); Alkaline Phosphatase 125 U/L (39-117); Aspartate Amino Transferase 25 U/L (5-31); Bilirubin Direct < 0.2 mg/dL (0.0-0.5); Bilirubin Total 0.4 mg/dL (0.0-1.0); Total Protein 7.1 g/dL (6.5-8.0)
[2021-09-26 15:45] LABS: TSH reflex Free T4 2.03 uIU/mL (0.32-4.0)
== END 2021-09-26 11:04 | disposition home or self-care (01) ==
LOC: HO.LAB 11:03
PROVIDERS: Internal Medicine Cardiovascular Disease; PCP Internal Medicine; Visit Provider Internal Medicine
DX: I48.0 Paroxysmal atrial fibrillation (principal); R06.00 Dyspnea, unspecified; I50.30 Unspecified diastolic (congestive) heart failure; Z51.81 Encounter for therapeutic drug level monitoring; Z79.01 Long term (current) use of anticoagulants
CPT/HCPCS: 36415; 80076; 84443; 85610; 93005; 99211; 99212

== ENCOUNTER 2021-10-22 14:44 | Outpatient (REF) | payer OTHER, MEDICARE, SELFPAY ==
--- NOTE | 2021-10-22 17:40 | PFT_ITS ---
Forced vital capacity is slightly decreased. FEV1 and [id number] were normal. MVV slightly decreased. Postbronchodilator therapy, there is no significant change. Total lung capacity is normal. Residual volume slightly decreased. Diffusion capacity is normal. CONCLUSION: Normal pulmonary function test except for possible minimal restrictive disorder. Compared to the results of 03/05/2021, there is no significant change except for the fact that diffusion capacity is normal. Clinical correlation recommended. MD SWAPNA Gay/MODL / [id number]
== END 2021-10-22 14:45 | disposition home or self-care (01) ==
LOC: HO.RESP 14:44
PROVIDERS: Visit Provider Internal Medicine Cardiovascular Disease
DX: Z79.899 Other long term (current) drug therapy (principal)
CPT/HCPCS: 94060; 94727; 94729

== ENCOUNTER → 2021-10-24 11:34 | Outpatient (BNVA) | payer MEDICARE, SELFPAY | PROVIDERS: PCP Internal Medicine; Visit Provider Internal Medicine | DX: I48.0 Paroxysmal atrial fibrillation (principal); Z51.81 Encounter for therapeutic drug level monitoring; Z79.01 Long term (current) use of anticoagulants | CPT/HCPCS: 85610; 99211 ==

== ENCOUNTER → 2021-11-28 10:48 | Outpatient (BNVA) | payer OTHER, MEDICARE, SELFPAY | PROVIDERS: PCP Internal Medicine; Visit Provider Internal Medicine | DX: I48.0 Paroxysmal atrial fibrillation (principal); Z51.81 Encounter for therapeutic drug level monitoring; Z79.01 Long term (current) use of anticoagulants | CPT/HCPCS: 85610; 99211 ==

== ENCOUNTER → 2021-12-05 10:58 | Outpatient (BNVA) | payer OTHER, MEDICARE, SELFPAY | PROVIDERS: PCP Internal Medicine; Visit Provider Internal Medicine | DX: I48.0 Paroxysmal atrial fibrillation (principal); Z51.81 Encounter for therapeutic drug level monitoring; Z79.01 Long term (current) use of anticoagulants | CPT/HCPCS: 85610; 99211 ==

== ENCOUNTER 2021-12-17 13:00 | Outpatient (RCR) | payer MEDICARE, OTHER, SELFPAY ==
--- NOTE | 2021-10-22 09:56 | MHC.PT.EP ---
[facility] [place] Office [place] Office [place] Office [address] Gay Trejo [address] [phone] F: [phone] F: [phone] F: [phone] F: [phone] Physical Therapy Plan of Care Date of Evaluation: Date of Surgery: Diagnosis: LBP Assessment: 66 y/o F referred to PT with LBP. 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 Examination shows decreased lumbar AROM, decreased B LE strength especially at hips, decreased hip flexor length, L posterior innominate, TTP B lumbar paraspinals, impaired gait pattern, and impaired postural awareness. Recommend PT 2x/week for 5 weeks to address impairments, implement HEP, and optimize functional mobility. Frequency and Duration: The patient will be seen 2x/week for 5 weeks Short Term Goals: 3 weeks 1. I with HEP 2. Pt will improve lumbar AROM by 25 % 3. 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 I with HEP and self management of sx 2. 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 Pt will be able to sit > 60 min with pain < 3/10 Treatment Plan: Modalities to reduce pain, spasms and effusion. Manual therapy to restore motion and function. Therapeutic exercise to improve strength and flexibility. Neuromuscular re-education for posture and balance. Therapeutic activities to return to functional activities of daily living. Electronically signed by: Please sign and return to therapist. Thank you for your referral.
--- NOTE | 2021-12-17 13:50 | MHC.PT.PR ---
[facility] [place] Office [place] Office [place] Office [address] Gay Trejo [address] [phone] F: [phone] F: [phone] F: [phone] F: [phone] Physical Therapy Progress Note Diagnosis: LBP Date of Evaluation: 10/22/21 Treatments to Date: 9 Cancellations to Date: 4 No Shows to Date: 1 Subjective: She is still having increased pain and still not sure why. States her pain comes in waves and sometimes it is okay and other times, it increased. Pain Score and Location: 4 LB (L>R) Assessment: Continued to perform mat exercises over moist heat due to poor tolerance for standing. She continues to have variable pain with some days better than others. Low tolerance for exercise and pt with no directional preference. She has made minimal- no change in lumbar AROM, strength, and functional mobility. At this time, recommend pt f/u with MD regarding plateau in progress and continued pain; pt in agreement. She has a f/u in mid-December. Thank you once again for your referral.
--- NOTE | 2022-01-04 07:30 | MHC.PT.DC ---
[facility] [place] Office [place] Office [place] Office [address] Gay Trejo [address] [phone] F: [phone] F: [phone] F: [phone] F: [phone] Physical Therapy Discharge Report Diagnosis: LBP Date of Surgery: Date of Evaluation: 10/22/21 Date of Discharge: 01/04/22 Treatments to Date: 9 Cancellations to Date: 4 No Shows to Date: 1 Discharge Status: Independent with HEP Recommend MD Follow-up Discharge Summary: She continues to have variable pain with some days better than others. Low tolerance for exercise and pt with no directional preference. She has made minimal- no change in lumbar AROM, strength, and functional mobility. At this time, recommend pt f/u with MD regarding plateau in progress and continued pain; pt in agreement. She has a f/u in mid-December. Electronically signed by: Delilah De La Torre PT Please sign and return to therapist. Thank you for your referral.
== END 2022-01-04 07:30 | disposition home or self-care (01) ==
LOC: HO.PTCHIC 13:00
PROVIDERS: PCP Internal Medicine; Visit Provider Internal Medicine
DX: M54.50 Low back pain, unspecified (principal)
CPT/HCPCS: 97110; 97140; 97161

== ENCOUNTER 2021-12-19 09:24 | Outpatient (REF) | payer MEDICARE, OTHER, SELFPAY ==
[2021-12-19 11:33] LABS: Hematocrit 44.2 % (37.0-47.0); Hemoglobin 14.6 g/dl (12.0-16.0); Mean Corpuscular Hemoglobin 30.6 pg (27.0-33.0); Mean Corpuscular Volume 92.7 fL (80.0-98.0); Mean Platelet Volume 10.8 fL (9.4-12.3); Platelet Count 252 X10*3/uL (160-400); Red Blood Count 4.77 X10*6/uL (4.20-5.50); Red Cell Distribution Width 14.5 % (11.0-16.0)
[2021-12-19 12:05] LABS: Alanine Aminotransferase 20 U/L (0-31); Albumin Level 4.1 g/dL (3.5-5.0); Alkaline Phosphatase 120 U/L (39-117); Anion Gap 14 (12-20); Aspartate Amino Transferase 17 U/L (5-31); Bilirubin Direct 0.2 mg/dL (0.0-0.5); Bilirubin Total 0.4 mg/dL (0.0-1.0); Blood Urea Nitrogen 27 mg/dL (9-16); C Reactive Protein 1.27 mg/dL (< or = 0.50); Calcium 9.7 mg/dL (8.4-10.2); Carbon Dioxide 22 mmol/L (22-29); Chloride 106 mmol/L (96-108); Estimated Glomerular Filt Rate 34; Glucose Random 243 mg/dL (60-115); Sodium 137 mmol/L (135-145); Total Protein 7.6 g/dL (6.5-8.0)
[2021-12-19 12:13] LABS: Erythrocyte Sedimentation Rate 13 MM/HR (0-20)
[2021-12-19 12:32] LABS: Thyroid Stimulating Hormone 0.99 uIU/mL (0.32-4.0)
== END 2021-12-19 09:25 | disposition home or self-care (01) ==
LOC: HO.HMGCLDS 09:24
PROVIDERS: PCP Internal Medicine; Visit Provider Internal Medicine
DX: M35.3 Polymyalgia rheumatica (principal)
CPT/HCPCS: 36415; 80048; 80076; 84443; 85027; 85652; 86140

== ENCOUNTER → 2022-01-09 13:16 | Outpatient (BNVA) | payer OTHER, MEDICARE, SELFPAY | PROVIDERS: PCP Internal Medicine; Visit Provider Internal Medicine | DX: I48.0 Paroxysmal atrial fibrillation (principal); Z51.81 Encounter for therapeutic drug level monitoring; Z79.01 Long term (current) use of anticoagulants | CPT/HCPCS: 85610; 99211 ==

== ENCOUNTER 2022-01-10 15:11 | Outpatient (REF) | payer OTHER, MEDICARE, SELFPAY ==
--- NOTE | ~2022-01-10 | XR_ITS ---
EXAMINATION: XR LUMBOSACRAL SPINE CLINICAL INFORMATION: Low back pain. COMPARISON: None TECHNIQUE: Three views of the lumbosacral spine. FINDINGS: There is no evidence of acute fracture, spondylolisthesis, or spondylolysis of the lumbar spine. Pedicles are intact. Minimal scoliosis convex left. There is moderate disc space narrowing at the L5-S1 disc space with bilateral facet arthropathy. There is vacuum disc phenomena seen at the L4-L5 disc space level. No fusion or widening of the sacroiliac joints is appreciated. There is some increased sclerosis inferiorly of the sacroiliac joints. There is some anterior spurring seen L1-L3. XR/XR lumbar spine 2-3V IMPRESSION: Degenerative disc disease with facet arthropathy L5-S1.
--- NOTE | ~2022-01-10 | XR_ITS ---
EXAMINATION: XR KNEE, RIGHT CLINICAL INFORMATION: Right knee pain. COMPARISON: None TECHNIQUE: AP and lateral views of the right knee. FINDINGS: There is no evidence of acute fracture or dislocation of the right knee. The right knee joint spaces are generally maintained. Chondrocalcinosis is present. There is some spurring undersurface of the patella. No effusion is identified. There is anterior soft tissue swelling seen overlying the tibial tubercle. XR/XR knee RT 2V IMPRESSION: Mild degenerative change. Soft tissue swelling overlying the tibial tubercle.
--- NOTE | ~2022-01-10 | XR_ITS ---
EXAMINATION: XR SACROILIAC JOINTS CLINICAL INFORMATION: Low back pain COMPARISON: None TECHNIQUE: 3 views of the sacroiliac joints FINDINGS: Degenerative disc disease seen at the L5-S1 level. No effusion or widening of the sacroiliac joints is identified. There is inferior sclerosis and spurring present. No destructive bony lesions identified. XR/XR sacroiliac joint 1-2V IMPRESSION: Degenerative change inferior aspects of the sacroiliac joints bilaterally without evidence of fusion or widening. L5-S1 degenerative disc disease.
[2022-01-10 16:43] LABS: Hematocrit 43.8 % (37.0-47.0); Hemoglobin 14.8 g/dl (12.0-16.0); Mean Corpuscular HGB Conc 33.8 g/dl (31.0-35.0); Mean Corpuscular Hemoglobin 31.2 pg (27.0-33.0); Mean Corpuscular Volume 92.4 fL (80.0-98.0); Mean Platelet Volume 10.9 fL (9.4-12.3); Platelet Count 206 X10*3/uL (160-400); Red Blood Count 4.74 X10*6/uL (4.20-5.50); Red Cell Distribution Width 14.5 % (11.0-16.0)
[2022-01-10 16:53] LABS: Alanine Aminotransferase 19 U/L (0-31); Alkaline Phosphatase 116 U/L (39-117); Anion Gap 12 (12-20); Aspartate Amino Transferase 18 U/L (5-31); Bilirubin Total 0.8 mg/dL (0.0-1.0); Blood Urea Nitrogen 22 mg/dL (9-16); C Reactive Protein 1.58 mg/dL (< or = 0.50); Calcium 9.2 mg/dL (8.4-10.2); Carbon Dioxide 27 mmol/L (22-29); Chloride 104 mmol/L (96-108); Cholesterol 250 mg/dL; Estimated Glomerular Filt Rate 44; Glucose Fasting 117 mg/dL (60-99); HDL Cholesterol 40 mg/dL; LDL Cholesterol Calculated 179 mg/dl; Potassium 4.4 mmol/L (3.3-5.1); Rheumatoid Factor < 15.0 IU/mL (<15.0); Sodium 139 mmol/L (135-145); Total Protein 6.8 g/dL (6.5-8.0); Triglycerides 158 mg/dL
[2022-01-10 17:15] LABS: Creatinine Urine 207.08 mg/dL; Microalbum/Creatinine Ratio Ur 2.8 ug/mg cr
[2022-01-10 17:20] LABS: Erythrocyte Sedimentation Rate 12 MM/HR (0-20)
[2022-01-11 07:20] LABS: Estimated Average Glucose 160 mg/dL; Hemoglobin A1c % 7.2 %
[2022-01-11 23:06] LABS: Anti Nuclear Antibody Screen POSITIVE (NEGATIVE)
[2022-01-14 16:01] LABS: Cyclic Citrullinated Peptide <16 UNITS
== END 2022-01-10 15:12 | disposition home or self-care (01) ==
LOC: HO.HMGCLDS 15:11
PROVIDERS: Visit Provider Internal Medicine
DX: G89.29 Other chronic pain (principal); M35.3 Polymyalgia rheumatica; R73.9 Hyperglycemia, unspecified; M53.3 Sacrococcygeal disorders, not elsewhere classified; M25.561 Pain in right knee; M54.50 Low back pain, unspecified
CPT/HCPCS: 36415; 72100; 72200; 73560; 80053; 80061; 82043; 83036; 85027; 85652; 86038; 86039; 86140; 86200; 86431

== ENCOUNTER 2022-01-23 08:53 | Outpatient (REF) | payer MEDICARE, SELFPAY ==
[2022-01-24 13:40] LABS: Hexagonal Phase Neutralization NEGATIVE (NEGATIVE); PTT (LAC) Screen 45 sec (< OR = 40)
[2022-01-28 14:05] LABS: Anti DNA DS Antibody <1 IU/mL; SM/Ribonucleoprotein Ab <1.0 NEG AI (<1.0 NEG); Smith Protein <1.0 NEG AI (<1.0 NEG)
== END 2022-01-23 08:54 | disposition home or self-care (01) ==
LOC: HO.LAB 08:53
PROVIDERS: PCP Internal Medicine; Visit Provider Internal Medicine Rheumatology
DX: R76.8 Other specified abnormal immunological findings in serum (principal); N18.30 Chronic kidney disease, stage 3 unspecified; M47.27 Other spondylosis with radiculopathy, lumbosacral region; Z86.72 Personal history of thrombophlebitis; I82.409 Acute embolism and thrombosis of unspecified deep veins of unspecified lower extremity; Z79.01 Long term (current) use of anticoagulants
CPT/HCPCS: 36415; 85597; 85613; 85730; 86225; 86235; Q3014

== ENCOUNTER → 2022-01-29 10:15 | Outpatient (BNVA) | payer MEDICARE, SELFPAY | PROVIDERS: PCP Internal Medicine; Visit Provider Internal Medicine | DX: I48.0 Paroxysmal atrial fibrillation (principal); Z51.81 Encounter for therapeutic drug level monitoring; Z79.01 Long term (current) use of anticoagulants | CPT/HCPCS: 85610; 99211 ==

== ENCOUNTER → 2022-01-30 14:24 | Outpatient (BNVA) | payer MEDICARE, SELFPAY | PROVIDERS: PCP Internal Medicine; Referring Provider Internal Medicine; Visit Provider Nurse Practitioner Family | DX: I48.0 Paroxysmal atrial fibrillation (principal); Z79.01 Long term (current) use of anticoagulants; Z79.899 Other long term (current) drug therapy | CPT/HCPCS: 93005; 99212 ==

== ENCOUNTER 2022-02-26 10:22 | Outpatient (REF) | payer MEDICARE, SELFPAY ==
[2022-02-26 11:54] LABS: MANUAL DIFF FLAG NO
[2022-02-26 12:19] LABS: Basophils Percent Auto 0.6 % (0-2); Eosinophils Absolute Auto 0.2 X10*3/uL (0.0-0.4); Eosinophils Percent Auto 2.9 % (0-4); Hematocrit 45.1 % (37.0-47.0); Imm Gran Abs Auto 0.02 X10*3/uL (0.00-0.03); Imm Gran Pct Auto 0.3 % (0.0-0.4); Lymphocytes Absolute Auto 2.1 X10*3/uL (1.2-4.9); Lymphocytes Percent Auto 32.1 % (20-40); Mean Corpuscular HGB Conc 33.3 g/dl (31.0-35.0); Mean Corpuscular Hemoglobin 30.7 pg (27.0-33.0); Mean Corpuscular Volume 92.4 fL (80.0-98.0); Mean Platelet Volume 10.8 fL (9.4-12.3); Monocytes Absolute Auto 0.6 X10*3/uL (0.1-1.2); Monocytes Percent Auto 8.9 % (2-11); Neutrophils Absolute Auto 3.7 x10*3/uL (2.0-8.3); Neutrophils Percent Auto 55.2 % (45-73); Platelet Count 242 X10*3/uL (160-400); Red Blood Count 4.88 X10*6/uL (4.20-5.50); Red Cell Distribution Width 14.4 % (11.0-16.0); White Blood Count 6.6 X10*3/uL (4.8-10.8)
[2022-02-26 12:52] LABS: Alanine Aminotransferase 18 U/L (0-31); Albumin Level 4.3 g/dL (3.5-5.0); Alkaline Phosphatase 114 U/L (39-117); Anion Gap 12 (12-20); Aspartate Amino Transferase 17 U/L (5-31); Bilirubin Total 0.8 mg/dL (0.0-1.0); Blood Urea Nitrogen 34 mg/dL (9-16); Calcium 10.1 mg/dL (8.4-10.2); Carbon Dioxide 30 mmol/L (22-29); Chloride 102 mmol/L (96-108); Estimated Glomerular Filt Rate 34; Glucose Random 140 mg/dL (60-115); Potassium 5.2 mmol/L (3.3-5.1); Sodium 139 mmol/L (135-145); Total Protein 7.2 g/dL (6.5-8.0)
[2022-02-26 13:15] LABS: Ferritin 89 ng/mL (10-250); Thyroid Stimulating Hormone 1.94 uIU/mL (0.32-4.0)
== END 2022-02-26 10:23 | disposition home or self-care (01) ==
LOC: HO.LAB 10:22
PROVIDERS: Absent Provider Internal Medicine; PCP Internal Medicine; Visit Provider Psychiatry & Neurology Neurology
DX: G47.33 Obstructive sleep apnea (adult) (pediatric) (principal); G25.81 Restless legs syndrome; I48.0 Paroxysmal atrial fibrillation; Z51.81 Encounter for therapeutic drug level monitoring; Z79.01 Long term (current) use of anticoagulants
CPT/HCPCS: 36415; 80053; 82728; 84443; 85025; 85610; 99211; 99212

== ENCOUNTER → 2022-02-27 09:48 | Outpatient (BNVA) | payer MEDICARE, SELFPAY | PROVIDERS: PCP Internal Medicine; Visit Provider Anesthesiology | DX: M76.30 Iliotibial band syndrome, unspecified leg (principal); M54.50 Low back pain, unspecified; E66.01 Morbid (severe) obesity due to excess calories | CPT/HCPCS: 99202 ==

== ENCOUNTER 2022-03-06 11:31 | Outpatient (REF) | payer MEDICARE, SELFPAY ==
[2022-03-06 12:14] LABS: INTERNATIONAL NORM RATIO 1.5 (0.9-1.1); Prothrombin Time 17.7 SEC (9.9-13.0)
[2022-03-06 12:17] LABS: Estimated Average Glucose 140 mg/dL; Hemoglobin A1c % 6.5 %
[2022-03-06 13:04] LABS: Anion Gap 9 (12-20); Blood Urea Nitrogen 19 mg/dL (9-16); Calcium 9.2 mg/dL (8.4-10.2); Carbon Dioxide 27 mmol/L (22-29); Chloride 108 mmol/L (96-108); Estimated Glomerular Filt Rate 42; Glucose Random 116 mg/dL (60-115); Potassium 4.3 mmol/L (3.3-5.1); Sodium 140 mmol/L (135-145)
== END 2022-03-06 11:32 | disposition home or self-care (01) ==
LOC: HO.LAB 11:31
PROVIDERS: PCP Internal Medicine; Visit Provider Internal Medicine
DX: I48.0 Paroxysmal atrial fibrillation (principal); E78.5 Hyperlipidemia, unspecified; R73.9 Hyperglycemia, unspecified; E87.5 Hyperkalemia; Z79.01 Long term (current) use of anticoagulants
CPT/HCPCS: 36415; 80048; 83036; 85610

== ENCOUNTER → 2022-03-25 10:27 | Outpatient (BNVA) | payer MEDICARE, SELFPAY | PROVIDERS: PCP Internal Medicine; Visit Provider Internal Medicine | DX: I48.0 Paroxysmal atrial fibrillation (principal); Z79.01 Long term (current) use of anticoagulants; Z51.81 Encounter for therapeutic drug level monitoring | CPT/HCPCS: 85610 ==

== ENCOUNTER → 2022-04-08 11:08 | Outpatient (BNVA) | payer MEDICARE, SELFPAY | PROVIDERS: PCP Internal Medicine; Visit Provider Internal Medicine | DX: I48.0 Paroxysmal atrial fibrillation (principal); Z79.01 Long term (current) use of anticoagulants; Z51.81 Encounter for therapeutic drug level monitoring | CPT/HCPCS: 85610; 99211 ==

== ENCOUNTER → 2022-04-25 11:10 | Outpatient (BNVA) | payer MEDICARE, SELFPAY | PROVIDERS: PCP Internal Medicine; Visit Provider Internal Medicine | DX: I48.0 Paroxysmal atrial fibrillation (principal); Z79.01 Long term (current) use of anticoagulants; Z51.81 Encounter for therapeutic drug level monitoring | CPT/HCPCS: 85610; 99211 ==

== ENCOUNTER → 2022-05-02 11:32 | Outpatient (BNVA) | payer MEDICARE, SELFPAY | PROVIDERS: PCP Internal Medicine; Visit Provider Internal Medicine | DX: I48.0 Paroxysmal atrial fibrillation (principal); Z79.01 Long term (current) use of anticoagulants; Z51.81 Encounter for therapeutic drug level monitoring | CPT/HCPCS: 85610; 99211 ==

== ENCOUNTER → 2022-05-06 11:27 | Outpatient (BNVA) | payer MEDICARE, SELFPAY | PROVIDERS: PCP Internal Medicine; Visit Provider Internal Medicine | DX: I48.0 Paroxysmal atrial fibrillation (principal); Z79.01 Long term (current) use of anticoagulants; Z51.81 Encounter for therapeutic drug level monitoring | CPT/HCPCS: 85610; 99211 ==

== ENCOUNTER → 2022-05-13 11:31 | Outpatient (BNVA) | payer MEDICARE, SELFPAY | PROVIDERS: PCP Internal Medicine; Visit Provider Internal Medicine | DX: I48.0 Paroxysmal atrial fibrillation (principal); Z51.81 Encounter for therapeutic drug level monitoring; Z79.01 Long term (current) use of anticoagulants | CPT/HCPCS: 85610; 99211 ==

== ENCOUNTER 2022-05-24 00:02 | Inpatient (IN) | payer MEDICARE, SELFPAY ==
[2022-05-24] VITALS (21 sets, daily range): BP systolic 96–145; BP diastolic 47–75; PULSE 52–86; RESP 16–24; TEMP 36.4–38.3; O2SAT 89–98; BMI 39.1; BMI 45.2
--- NOTE | ~2022-05-24 | FL_ITS ---
EXAMINATION: XR FLUOROSCOPY WITH IMAGES CLINICAL INFORMATION: Left ureteral calculus COMPARISON: CT abdomen and pelvis noncontrast 05/24/2022 TECHNIQUE: Fluoroscopy performed by Dr. Julian Arguelles. Fluoroscopy time: 33 seconds. Cumulative Dose: 13.83 mGy. Images: 2. FINDINGS: There is guidewire seen in the left urinary tract. Final image demonstrates distal end left ureteral stent overlying left bladder. FL/FL guidance in OR IMPRESSION: Fluoroscopy for urologic procedure.
--- NOTE | ~2022-05-24 | XR_ITS ---
EXAMINATION: XR CHEST CLINICAL INFORMATION: Hypoxia, fever. COMPARISON: 09/21/2020 chest radiograph. TECHNIQUE: Frontal view of the chest was obtained. FINDINGS: Mild prominence of the pulmonary vasculature is seen without focal opacity. The heart is mildly enlarged. The mediastinal structures are unremarkable. XR/XR chest 1V IMPRESSION: Mild prominence of pulmonary vasculature appears more prominent compared to the 2019 study. Mild congestion cannot be excluded. No focal infiltrate.
--- NOTE | ~2022-05-24 | CT_ITS ---
EXAMINATION: CT ABDOMEN AND PELVIS WITHOUT CONTRAST CLINICAL INFORMATION: Left lower quadrant pain. Rule out diverticulitis. COMPARISON: April 24, 2020 and May 27, 2009. TECHNIQUE: Multidetector volumetric imaging was performed from the superior aspect of the liver through the pubic symphysis. Sagittal and coronal reformatted images were obtained on the technologist's workstation. This CT examination was performed using dose optimization techniques as appropriate, variously including the following: *Automated exposure control *Adjustment of mA and/or kV according to patient size (this includes techniques or standardized protocols for targeted exams where dose is matched to indication/reason for exam; i.e. extremities or head) *Use of iterative reconstruction technique DLP: 967 mGy-cm FINDINGS: LUNG BASES: Heart upper normal in size to mildly enlarged, unchanged. The visualized lung bases appear unremarkable. LIVER, GALLBLADDER, AND BILIARY TREE: The liver is normal in size, shape, and attenuation. No focal hepatic lesion or biliary ductal dilatation is appreciated. Unremarkable appearance of the gallbladder. PANCREAS: Unremarkable. SPLEEN: Unremarkable. ADRENAL GLANDS: Unremarkable. KIDNEYS AND URETERS: 7 mm left UVJ stone (image 81, series 3) with associated mild left hydronephrosis, hydroureter, and perinephric stranding. Multiple foci of left renal cortical scarring, similar compared with 2 years prior. BLADDER: Unremarkable. GASTROINTESTINAL TRACT/MESENTERY: Sigmoid diverticulosis without evidence of diverticulitis. Normal-appearing distal ileum. No evidence of appendicitis. Mild, nonspecific adelso mesentery, similar compared with 2 years prior. ABDOMINAL WALL: No significant hernia is appreciated. LYMPH NODES: Normal. VASCULAR: Unremarkable. PELVIC VISCERA: Uterus not visualized, suggesting prior surgical removal. OSSEOUS STRUCTURES: Suspect decreased bone mineral density. Superior endplate softening and Schmorl's node at L3. Moderate disc degenerative change at L5-S1. CT/CT abdomen pelvis wo con IMPRESSION: 7 mm left UVJ stone with associated mild left hydronephrosis, hydroureter, and perinephric stranding. Multiple foci of left renal cortical scarring, similar compared with 2 years prior. Additional findings, as above.
[2022-05-24 00:38] LABS: MANUAL DIFF FLAG NO
[2022-05-24 00:40] LABS: Basophils Percent Auto 0.3 % (0-2); Eosinophils Absolute Auto 0.1 X10*3/uL (0.0-0.4); Eosinophils Percent Auto 0.5 % (0-4); Hematocrit 38.9 % (37.0-47.0); Hemoglobin 13.1 g/dl (12.0-16.0); Imm Gran Abs Auto 0.03 X10*3/uL (0.00-0.03); Imm Gran Pct Auto 0.3 % (0.0-0.4); Lymphocytes Absolute Auto 1.4 X10*3/uL (1.2-4.9); Lymphocytes Percent Auto 13.4 % (20-40); Mean Corpuscular HGB Conc 33.7 g/dl (31.0-35.0); Mean Corpuscular Hemoglobin 30.4 pg (27.0-33.0); Mean Corpuscular Volume 90.3 fL (80.0-98.0); Mean Platelet Volume 9.7 fL (9.4-12.3); Monocytes Absolute Auto 0.6 X10*3/uL (0.1-1.2); Monocytes Percent Auto 5.7 % (2-11); Neutrophils Absolute Auto 8.2 x10*3/uL (2.0-8.3); Neutrophils Percent Auto 79.8 % (45-73); Platelet Count 235 X10*3/uL (160-400); Red Blood Count 4.31 X10*6/uL (4.20-5.50); Red Cell Distribution Width 14.5 % (11.0-16.0); White Blood Count 10.2 X10*3/uL (4.8-10.8)
[2022-05-24 00:44] LABS: Appearance Urine CLEAR; Color Urine YELLOW; Glucose Urine UA NEG (NEG); Leukocyte Esterase Urine TRACE (NEG); Nitrite Urine NEG (NEG); Specific Gravity - Urine 1.015 (1.005-1.025); UACC Culture Trigger NO; Urine Blood 2+ (NEG); Urine Ketones NEG (NEG); Urine Protein NEG (NEG-TRACE)
[2022-05-24 00:50] LABS: Bacteria Urine TRACE /LPF; Calcium Phosphate Crystals Ur TRACE /LPF; Squamous Epithelial Cell Urine 1+ /LPF
[2022-05-24 00:58] LABS: Alanine Aminotransferase 21 U/L (0-31); Albumin Level 3.8 g/dL (3.5-5.0); Alkaline Phosphatase 133 U/L (39-117); Anion Gap 12 (12-20); Aspartate Amino Transferase 20 U/L (5-31); Bilirubin Direct 0.3 mg/dL (0.0-0.5); Bilirubin Total 0.6 mg/dL (0.0-1.0); Blood Urea Nitrogen 20 mg/dL (9-16); COVID-19 Test Negative (Negative); Calcium 8.5 mg/dL (8.4-10.2); Carbon Dioxide 26 mmol/L (22-29); Chloride 103 mmol/L (96-108); Creatinine Clr Calc Pharmacy 48.2; Estimated Glomerular Filt Rate 37; Glucose Random 178 mg/dL (60-115); Potassium 4.2 mmol/L (3.3-5.1); Sodium 137 mmol/L (135-145); Total Protein 6.7 g/dL (6.5-8.0)
[2022-05-24] MEDS: Morphine Sulfate 4 MG/ML CARTRIDGE IVPUSH (05:55)
[2022-05-24] MEDS: 0.9 % Sodium Chloride 1,000 ML 999 ML IV (05:55)
[2022-05-24] MEDS: ondansetron HCL 4 MG/2 ML VIAL IVPUSH (05:55)
--- NOTE | 2022-05-24 06:20 | ED.ABDPAIN ---
HPI - Abdominal Pain General Chief Complaint: Abdominal Pain Stated Complaint: abd & lower back pain Time Seen by Provider: 05/24/22 05:23 Source: patient Mode of arrival: ambulatory Limitations: no limitations History of Present Illness HPI narrative: Patient with history of diverticulitis and kidney stone came for left lower abdominal pain and left flank pain started yesterday evening after eating: No fever no chills feels nauseated no vomiting no diarrhea pain is constant with acute exacerbation in between no blood in the stool no hematuria patient is on Coumadin for DVT Related Data Home Medications Medication Instructions Recorded Confirmed ascorbate calcium (vitamin C) 500 500 mg PO DAILY 04/06/21 05/21/22 mg tablet cholecalciferol (vitamin D3) 10 10 mcg PO DAILY 04/06/21 05/21/22 mcg (400 unit) capsule mecobalamin (vitamin B12) 5,000 5,000 mcg PO DAILY 04/06/21 05/21/22 mcg lozenge multivitamin 1 tab PO DAILY 04/06/21 05/21/22 Previous Rx's Medication Instructions Recorded warfarin 5 mg tablet 2.5 mg PO DAILY #100 tabs 06/07/21 amiodarone 200 mg tablet 200 mg PO DAILY 30 days #30 tabs 11/19/21 bumetanide 2 mg tablet 1 mg PO DAILY #90 tabs 11/21/21 gabapentin 300 mg capsule 300 mg PO BID #60 caps 05/13/22 blood sugar diagnostic (OneTouch #100 ea 05/21/22 Ultra Test) blood-glucose meter (OneTouch #1 ea 05/21/22 Ultra2 Meter) Allergies Allergy/AdvReac Type Severity Reaction Status Date / Time Sulfa (Sulfonamide Allergy Unknown RASH Verified 05/21/22 07:50 Antibiotics) [SULFA(SULFONAMIDE ANTIBIOTICS)] codeine AdvReac Vomiting Verified 05/21/22 07:50 oxycodone AdvReac Gastrointestinal Verified 05/21/22 07:50 Upset Review of Systems Review of Systems Yes all other systems are reviewed and are negative [facility] Past Medical History Medical History Ankle pain, right CKD (chronic kidney disease) stage 3, GFR 30-59 ml/min Diastolic heart failure Diverticulitis DVT (deep venous thrombosis) Hip pain History of deep vein thrombophlebitis of lower extremity Hyperkalemia Hyperlipidemia Iliotibial band syndrome Knee pain Low back pain Lower back pain Lumbosacral radiculopathy due to osteoarthritis of spine Morbid obesity Obesity BERE (obstructive sleep apnea) Osteoarthritis of right ankle and foot Paroxysmal A-fib Peripheral vascular complication of surgical procedure Peripheral vascular disease Positive ALVIN (antinuclear antibody) Postmenopausal Venous insufficiency of both lower extremities Surgical History H/O hysterectomy for benign disease History of cardiac cath Hx of vascular surgery Family History Family History Father Emphysema, unspecified Mother No problems noted. Brother Atrial fibrillation Sister Atrial fibrillation Social History Social History Household Members: None Housing: Apartment Do you presently have visiting nurse or other home services: No Alcohol intake: never Patient Tobacco Use Status: Never used Tobacco e-Cigarette/Vaping Use: Never Used Advance Directives: No Advance Directives Information Provided: No service: No Current occupational status: disabled Current occupation: rt handed/[employer] Cognitive needs: No Hearing needs: No Vision needs: No Physical Exam ED Vital Signs: Vital Signs - 24 hr 05/24/22 00:22 05/24/22 04:54 05/24/22 05:07 Temperature 98.2 F 98.2 F Pulse Rate 60 60 61 Respiratory Rate 24 H 20 22 H Blood Pressure 144/66 H 145/75 H 138/71 Pulse Oximetry 95 93 95 Oxygen Delivery Method Room Air Room Air Room Air BMI result Body Mass Index 39.1 Appearance: Alert. Oriented X3. Mild distress Eyes: No pallor or icterus ENT: Pharynx normal. Oral Mucosa moist Neck: Normal inspection. Neck supple. CVS: Normal heart rate and rhythm. Pulses normal. Respiratory: No respiratory distress. Equal air entry bilateral, no wheezing/rales/rhonchi Abdomen: Soft common deep left lower quadrant tenderness Bowel sounds are present, no mass palpable, L CVA tenderness Skin: Skin warm and dry. Normal skin color. Normal skin turgor. Extremities: No lower extremity edema. No calf tenderness Neuro: Oriented X 3. No motor deficit. No sensory deficit.No cerebellar signs , cranial nerves II-XII intact MDM - Abdominal Pain MDM Narrative Medical decision making narrative: Patient with left-sided hydronephrosis with about 6 mm UVJ junction stone final report is pending Dr. Arguelles informed about the size of the stone will wait for the final report and evaluate the patient in ED Lab Data Attestation: I reviewed the patient's lab results. Result diagrams: 05/24/22 00:27 05/24/22 00:27 Labs: Lab Results 05/24/22 05/24/22 05/24/22 Range/Units 00:27 00:27 00:27 WBC 10.2 (4.8-10.8) X10*3/uL RBC 4.31 (4.20-5.50) X10*6/uL Hgb 13.1 (12.0-16.0) g/dl Hct 38.9 (37.0-47.0) % MCV 90.3 (80.0-98.0) fL MCH 30.4 (27.0-33.0) pg MCHC 33.7 (31.0-35.0) g/dl RDW 14.5 (11.0-16.0) % Plt Count 235 (160-400) X10*3/uL MPV 9.7 (9.4-12.3) fL Immature Gran % (Auto) 0.3 (0.0-0.4) % Neut % (Auto) 79.8 H (45-73) % Lymph % (Auto) 13.4 L (20-40) % [place] % (Auto) 5.7 (2-11) % Eos % (Auto) 0.5 (0-4) % Baso % (Auto) 0.3 (0-2) % Lymph # (Auto) 1.4 (1.2-4.9) X10*3/uL [place] # (Auto) 0.6 (0.1-1.2) X10*3/uL Eos # (Auto) 0.1 (0.0-0.4) X10*3/uL Baso # (Auto) 0.0 (0.0-0.2) X10*3/uL Abs Immat Gran (auto) 0.03 (0.00-0.03) X10*3/uL Absolute Neuts (auto) 8.2 (2.0-8.3) x10*3/uL Absolute Nucleated RBC 0.000 (0.0-0.012) X10*3/uL Nucleated RBC % (auto) 0.0 (0.0-0.2) /100WBC Sodium 137 (135-145) mmol/L Potassium 4.2 (3.3-5.1) mmol/L Chloride 103 (96-108) mmol/L Carbon Dioxide 26 (22-29) mmol/L Anion Gap 12 (12-20) BUN 20 H (9-16) mg/dL Creatinine 1.41 H (0.5-1.4) mg/dL Estim Creat Clear Calc 48.2 Estimated GFR 37 Random Glucose 178 H (60-115) mg/dL Calcium 8.5 D (8.4-10.2) mg/dL Total Bilirubin 0.6 (0.0-1.0) mg/dL Direct Bilirubin 0.3 (0.0-0.5) mg/dL AST 20 (5-31) U/L ALT 21 (0-31) U/L Alkaline Phosphatase 133 H (39-117) U/L Total Protein 6.7 (6.5-8.0) g/dL Albumin 3.8 (3.5-5.0) g/dL Urine Color Urine Appearance Urine pH (5.0-8.0) Ur Specific [place] (1.005-1.025) Urine Protein (NEG-TRACE) MG/DL Urine Glucose (UA) (NEG) MG/DL Urine Ketones (NEG) MG/DL Urine Blood (NEG) Urine Nitrite (NEG) Ur Leukocyte Esterase (NEG) Urine RBC (0) /HPF Urine WBC (0-4) /HPF Ur Squamous Epith Cells /LPF Calcium Phosphate Cryst /LPF Urine Bacteria /LPF COVID-19 (RADHA) Negative (Negative) COVID-19 Clin Com See Note 05/24/22 Range/Units 00:38 WBC (4.8-10.8) X10*3/uL RBC (4.20-5.50) X10*6/uL Hgb (12.0-16.0) g/dl Hct (37.0-47.0) % MCV (80.0-98.0) fL MCH (27.0-33.0) pg MCHC (31.0-35.0) g/dl RDW (11.0-16.0) % Plt Count (160-400) X10*3/uL MPV (9.4-12.3) fL Immature Gran % (Auto) (0.0-0.4) % Neut % (Auto) (45-73) % Lymph % (Auto) (20-40) % [place] % (Auto) (2-11) % Eos % (Auto) (0-4) % Baso % (Auto) (0-2) % Lymph # (Auto) (1.2-4.9) X10*3/uL [place] # (Auto) (0.1-1.2) X10*3/uL Eos # (Auto) (0.0-0.4) X10*3/uL Baso # (Auto) (0.0-0.2) X10*3/uL Abs Immat Gran (auto) (0.00-0.03) X10*3/uL Absolute Neuts (auto) (2.0-8.3) x10*3/uL Absolute Nucleated RBC (0.0-0.012) X10*3/uL Nucleated RBC % (auto) (0.0-0.2) /100WBC Sodium (135-145) mmol/L Potassium (3.3-5.1) mmol/L Chloride (96-108) mmol/L Carbon Dioxide (22-29) mmol/L Anion Gap (12-20) BUN (9-16) mg/dL Creatinine (0.5-1.4) mg/dL Estim Creat Clear Calc Estimated GFR Random Glucose (60-115) mg/dL Calcium (8.4-10.2) mg/dL Total Bilirubin (0.0-1.0) mg/dL Direct Bilirubin (0.0-0.5) mg/dL AST (5-31) U/L ALT (0-31) U/L Alkaline Phosphatase (39-117) U/L Total Protein (6.5-8.0) g/dL Albumin (3.5-5.0) g/dL Urine Color YELLOW Urine Appearance CLEAR Urine pH 7.0 (5.0-8.0) Ur Specific [place] 1.015 (1.005-1.025) Urine Protein NEG (NEG-TRACE) MG/DL Urine Glucose (UA) NEG (NEG) MG/DL Urine Ketones NEG (NEG) MG/DL Urine Blood 2+ H (NEG) Urine Nitrite NEG (NEG) Ur Leukocyte Esterase TRACE H (NEG) Urine RBC 5-9 H (0) /HPF Urine WBC 1-4 (0-4) /HPF Ur Squamous Epith Cells 1+ /LPF Calcium Phosphate Cryst TRACE /LPF Urine Bacteria TRACE /LPF COVID-19 (RADHA) (Negative) COVID-19 Clin Com Discharge Plan Discharge Clinical Impression: Kidney stone on left side Patient Disposition: Still a Patient Prescriptions: No Action warfarin 5 mg tablet 2.5 mg PO DAILY Qty: 100 3RF Protocol: Dose Management Condition: Friday (Week One) Dose/Route: 2.5 mg Instruction: 0.5 x 5 mg milliliters Condition: Friday Dose/Route: 2.5 mg Instruction: 0.5 x 5 mg milliliters Condition: Friday Dose/Route: 5 mg Instruction: 1 x 5 mg milliliter Condition: Friday Dose/Route: 2.5 mg Instruction: 0.5 x 5 mg milliliters Condition: Dose/Route: 2.5 mg Instruction: 0.5 x 5 mg milliliters Condition: Friday Dose/Route: 2.5 mg Instruction: 0.5 x 5 mg milliliters Condition: Friday Dose/Route: 2.5 mg Instruction: 0.5 x 5 mg milliliters Condition: Friday (Week Two) Dose/Route: 2.5 mg Instruction: 0.5 x 5 mg milliliters Condition: Friday Dose/Route: 2.5 mg Instruction: 0.5 x 5 mg milliliters Condition: Friday Dose/Route: 5 mg Instruction: 1 x 5 mg milliliter Condition: Friday Dose/Route: 2.5 mg Instruction: 0.5 x 5 mg milliliters Condition: Dose/Route: 2.5 mg Instruction: 0.5 x 5 mg milliliters Condition: Friday Dose/Route: 2.5 mg Instruction: 0.5 x 5 mg milliliters Condition: Friday Dose/Route: 2.5 mg Instruction: 0.5 x 5 mg milliliters Protocol Text: Adjustment Start Date: Friday05/13/22 INR Value: 3.4 INR Date: 05/13/22 Recheck Date: 05/27/22 Additional Instructions: RESUME WEEKLY [place] Rx Instructions: 2.5 MG DAILY amiodarone 200 mg tablet 200 mg PO DAILY 30 Days Qty: 30 3RF bumetanide 2 mg tablet 1 mg PO DAILY Qty: 90 1RF gabapentin 300 mg capsule 300 mg PO BID Qty: 60 6RF (DME) blood-glucose meter [OneTouch Ultra2 Meter] Kit See Rx Instructions .Route Qty: 1 0RF Rx Instructions: As directed (DME) OneTouch Ultra Test Strip See Rx Instructions .Route Qty: 100 4RF Rx Instructions: 1 qd multivitamin Tablet 1 tab PO DAILY ascorbate calcium (vitamin C) 500 mg tablet 500 mg PO DAILY mecobalamin (vitamin B12) 5,000 mcg lozenge 5,000 mcg PO DAILY Rx Instructions: allow to dissolve in mouth OR may chew lightly before swallowing cholecalciferol (vitamin D3) 10 mcg (400 unit) capsule 10 mcg PO DAILY
[2022-05-24 07:31] LABS: Prothrombin Time 23.5 SEC (10.0-13.1)
[2022-05-24 07:33] LABS: Partial Thromboplastin Time 57.3 SEC (24.1-38.0)
[2022-05-24] MEDS: Tamsulosin HCL 0.4 MG CAPSULE PO (07:49)
[2022-05-24] MEDS: HYDROmorphone HCl 0.5 MG/0.5 ML SYRINGE IVPUSH (07:49)
--- NOTE | 2022-05-24 07:56 | PC.NURSE ---
medicated for pain, iv fluids infusing at [facility]. mouthcare complete. awaiting urology consult
--- NOTE | 2022-05-24 08:23 | PC.NURSE ---
Pt O2 sat dropping to 88% after pain medication administration. Pt alert and oriented, no apparent distress. Placed on 2 L nasal cannula, O2 sat currently 97%
--- NOTE | 2022-05-24 12:32 | P.CNUR_ITS ---
History of Present Illness Consult details Consult date: 05/24/22 Narrative: Consult regarding left ureteric stone 66-year-old female 1 week of pain Has had prior stones but passed without need for intervention Imaging review 7 mm distal left ureteric stones Recommendation left ureteroscopy Review of Systems Constitutional: Constitutional: Reports as per HPI and Reports no additional constitutional complaints Cardiovascular: Cardiovascular: Reports as per HPI and Reports no additional cardiovascular complaints Respiratory: Respiratory: Reports as per HPI and Reports no additional respiratory complaints Gastrointestinal: Gastrointestinal: Reports as per HPI and Reports no additional gastrointestinal complaints Genitourinary: Genitourinary: Reports as per HPI Musculoskeletal: Musculoskeletal: Reports no additional musculoskeletal complaints and Reports as per HPI Neurologic: Reports system reviewed and no additional complaints, except as documented and Reports as per HPI [facility] Past Medical History Medical History Ankle pain, right CKD (chronic kidney disease) stage 3, GFR 30-59 ml/min Diastolic heart failure Diverticulitis DVT (deep venous thrombosis) Hip pain History of deep vein thrombophlebitis of lower extremity Hyperkalemia Hyperlipidemia Iliotibial band syndrome Knee pain Low back pain Lower back pain Lumbosacral radiculopathy due to osteoarthritis of spine Morbid obesity Obesity BERE (obstructive sleep apnea) Osteoarthritis of right ankle and foot Paroxysmal A-fib Peripheral vascular complication of surgical procedure Peripheral vascular disease Positive ALVIN (antinuclear antibody) Postmenopausal Venous insufficiency of both lower extremities Family History Family History Father Emphysema, unspecified Mother No problems noted. Brother Atrial fibrillation Sister Atrial fibrillation Surgical History Surgical History H/O hysterectomy for benign disease History of cardiac cath Hx of vascular surgery Social History Social History Household Members: None Housing: Apartment Do you presently have visiting nurse or other home services: No Alcohol intake: never Patient Tobacco Use Status: Never used Tobacco e-Cigarette/Vaping Use: Never Used Advance Directives: No Advance Directives Information Provided: No service: No Current occupational status: disabled Current occupation: rt handed/[employer] Cognitive needs: No Hearing needs: No Vision needs: No Meds Allergies Allergy/AdvReac Type Severity Reaction Status Date / Time Sulfa (Sulfonamide Allergy Unknown RASH Verified 05/21/22 07:50 Antibiotics) [SULFA(SULFONAMIDE ANTIBIOTICS)] codeine AdvReac Vomiting Verified 05/21/22 07:50 oxycodone AdvReac Gastrointestinal Verified 05/21/22 07:50 Upset Active Medications: Current Medications Hydromorphone HCl (Hydromorphone Hcl 1 Mg/Ml Syringe) 1 mg IVPUSH Q4H PRN; Protocol PRN Reason: Pain, Moderate (Pain Scale 4-6 Home Medications Medication Instructions Recorded Confirmed Last Taken Type ascorbate calcium (vitamin C) 500 500 mg PO DAILY 04/06/21 05/21/22 Unknown History mg tablet cholecalciferol (vitamin D3) 10 10 mcg PO DAILY 04/06/21 05/21/22 Unknown History mcg (400 unit) capsule mecobalamin (vitamin B12) 5,000 5,000 mcg PO DAILY 04/06/21 05/21/22 Unknown History mcg lozenge multivitamin 1 tab PO DAILY 04/06/21 05/21/22 Unknown History Physical Exam Vital Signs: Vital Signs: Last Vital Signs Temp 98.2 F 05/24/22 04:54 Pulse 52 05/24/22 10:37 Resp 18 05/24/22 10:37 BP 116/55 L 05/24/22 10:37 Pulse Ox 94 05/24/22 10:37 O2 Del Method 05/24/22 10:37 BMI result Body Mass Index 39.1 Const: General: cooperative, healthy appearing, comfortable and no acute distress Orientation/consciousness: patient oriented x3 HEENT: Face and sinus: Yes normal facial exam Mouth: moist mucous membranes Neck: Neck: Yes normal visual inspection, Yes full ROM and Yes trachea midline Chest: Chest palpation & inspection: normal inspection of the chest Resp: Effort & Inspection: normal respiratory effort, able to speak in complete sentences and no respiratory distress GI: Inspection: Yes normal to inspection Back/Spine/Pelvis: Cervical Spine: normal cervical lordosis Thoracic/Lumbar Spine: thoracic and lumbar spine normal to inspection Skin: General skin exam: no rashes or lesions noted Neuro: General: patient oriented x3, tone normal and moves all extremities Extrem: General: Yes normal to inspection and Yes capillary refill normal Results Labs Result diagrams: 05/24/22 00:27 05/24/22 00:27 Labs: Abnormal lab results 05/24/22 05/24/22 05/24/22 Range/Units 00:27 00:27 00:38 Neut % (Auto) 79.8 H (45-73) % Lymph % (Auto) 13.4 L (20-40) % PT (10.0-13.1) SEC INR (0.9-1.1) APTT (24.1-38.0) SEC BUN 20 H (9-16) mg/dL Creatinine 1.41 H (0.5-1.4) mg/dL Random Glucose 178 H (60-115) mg/dL Alkaline Phosphatase 133 H (39-117) U/L Urine Blood 2+ H (NEG) Ur Leukocyte Esterase TRACE H (NEG) Urine RBC 5-9 H (0) /HPF 05/24/22 Range/Units 07:18 Neut % (Auto) (45-73) % Lymph % (Auto) (20-40) % PT 23.5 H (10.0-13.1) SEC INR 2.0 H (0.9-1.1) APTT 57.3 H (24.1-38.0) SEC BUN (9-16) mg/dL Creatinine (0.5-1.4) mg/dL Random Glucose (60-115) mg/dL Alkaline Phosphatase (39-117) U/L Urine Blood (NEG) Ur Leukocyte Esterase (NEG) Urine RBC (0) /HPF Short CBC 05/24/22 Range/Units 00:27 WBC 10.2 (4.8-10.8) X10*3/uL Hgb 13.1 (12.0-16.0) g/dl Hct 38.9 (37.0-47.0) % Plt Count 235 (160-400) X10*3/uL BMP 05/24/22 00:27 Sodium 137 Potassium 4.2 Chloride 103 Carbon Dioxide 26 BUN 20 H Creatinine 1.41 H Calcium 8.5 D Liver Function 05/24/22 Range/Units 00:27 Total Bilirubin 0.6 (0.0-1.0) mg/dL Direct Bilirubin 0.3 (0.0-0.5) mg/dL AST 20 (5-31) U/L ALT 21 (0-31) U/L Alkaline Phosphatase 133 H (39-117) U/L Albumin 3.8 (3.5-5.0) g/dL Urine 05/24/22 Range/Units 00:38 Urine Color YELLOW Urine Appearance CLEAR Urine pH 7.0 (5.0-8.0) Ur Specific [place] 1.015 (1.005-1.025) Urine Protein NEG (NEG-TRACE) MG/DL Urine Glucose (UA) NEG (NEG) MG/DL All other labs normal. Assessment and Plan (1) Kidney stone on left side: Status: Acute Plan Ureteroscopy We discussed the nature of the decision and reasonable alternatives for per forming the above surgery. Interventions include chemical dissolution, ESWL, ureteroscopy with laser lithotripsy and stent placement, PCNL. Options such as medical therapy were discussed. The relative uncertainties and benefits related to each alternate procedure were adequately discussed. General surgical risks including, but not limited to, pain, bleeding, infection, myocardial infarction, pulmonary embolus, deep vein thrombosis and cerebrovascular accident which may result in further hospital ization were discussed. Full disclosure of the procedure as well as all major risks, benefits and complications were discussed including but not limited to damage to the urethra, bladder and kidney infection, damage to the ureter, stent migration or malposition, scarring to the renal pelvis, remnant stone fragments, subsequent stone passage with need for secondary procedures. The overall secondary procedure rate is approximately 10-15%. The success rate of the procedure was discussed. Success of the procedure in the short-term does not necessarily guarantee that long-term success will be ma intained. Suitable follow up will need to be maintained. The patient showed understanding of discussion and wishes to proceed with - cystoscopy, retrograde, ureteroscopy, possible lithotripsy/stone basketing and stent on the left side Procedures Date of Service Date of Service: 05/24/22
[2022-05-24] MEDS: HYDROmorphone HCl 1 MG/ML SYRINGE IVPUSH (12:50)
--- NOTE | 2022-05-24 13:45 | PC.NURSE ---
pt on coumadin for hx DVT, INR 2.[address] Arguelles notified via [facility]. per Dr. Arguelles can proceed with scheduled procedure this evening.
[2022-05-24] MEDS: Albuterol Sulfate (0.083%) 2.5 MG/3 ML VIAL.NEB INHALE (15:58)
[2022-05-24] MEDS: Lactated Ringers 1,000 ML 100 ML IVCONT (15:58)
--- NOTE | 2022-05-24 16:27 | P.CONAN_ITS ---
HPI - Anesthesia Eval Consult details Narrative: left ureter stone PMFSH Active Problems Active Problems: All Active Problems (Updated 05/24/22 @ 07:13 by Mo Vargas MD) Kidney stone on left side (Acute) Mastalgia in female (Acute) Rectal bleed (Acute) Hyperkalemia (Acute) Morbid obesity (Acute) Low back pain (Acute) Iliotibial band syndrome (Acute) Renal failure (Acute) Fatigue (Acute) Lumbosacral radiculopathy due to osteoarthritis of spine (Acute) History of deep vein thrombophlebitis of lower extremity (Acute) Positive ALVIN (antinuclear antibody) (Acute) CKD (chronic kidney disease) stage 3, GFR 30-59 ml/min (Acute) Polymyalgia rheumatica (Acute) Knee pain (Acute) Osteoarthritis of right ankle and foot (Acute) Lower back pain (Acute) Ankle pain, right (Acute) Morbid obesity (Acute) Chronic low back pain (Acute) Postmenopausal (Acute) Obesity (Acute) Hip pain (Acute) Therapeutic drug monitoring (Acute) Obstructive sleep apnea (Acute) Restless legs syndrome (Acute) ALLEN (dyspnea on exertion) (Acute) Diastolic heart failure (Acute) Venous insufficiency of both lower extremities (Acute) Paroxysmal A-fib (Acute) Hyperglycemia (Acute) Current use of anticoagulant therapy (Acute) Past Medical History Medical History Ankle pain, right CKD (chronic kidney disease) stage 3, GFR 30-59 ml/min Diastolic heart failure Diverticulitis DVT (deep venous thrombosis) Hip pain History of deep vein thrombophlebitis of lower extremity Hyperkalemia Hyperlipidemia Iliotibial band syndrome Knee pain Low back pain Lower back pain Lumbosacral radiculopathy due to osteoarthritis of spine Morbid obesity Obesity BERE (obstructive sleep apnea) Osteoarthritis of right ankle and foot Paroxysmal A-fib Peripheral vascular complication of surgical procedure Peripheral vascular disease Positive ALVIN (antinuclear antibody) Postmenopausal Venous insufficiency of both lower extremities Family History Family History Father Emphysema, unspecified Mother No problems noted. Brother Atrial fibrillation Sister Atrial fibrillation Family history of problems with anesthesia: No Surgical History Surgical History H/O hysterectomy for benign disease History of cardiac cath Hx of vascular surgery History of Problems with Anesthesia: No Social History Social History Household Members: None Housing: Apartment Do you presently have visiting nurse or other home services: No Alcohol intake: never Patient Tobacco Use Status: Former Tobacco user e-Cigarette/Vaping Use: Never Used Use of substances other than those prescribed or required for medical reasons: No Are you DNR?: No Advance Directives: No Advance Directives Information Provided: No service: No Current occupational status: disabled Current occupation: rt handed/[employer] Cognitive needs: No Hearing needs: No Vision needs: No Meds Allergies Allergy/AdvReac Type Severity Reaction Status Date / Time Sulfa (Sulfonamide Allergy Unknown RASH Verified 05/21/22 07:50 Antibiotics) [SULFA(SULFONAMIDE ANTIBIOTICS)] codeine AdvReac Vomiting Verified 05/21/22 07:50 oxycodone AdvReac Gastrointestinal Verified 05/21/22 07:50 Upset Active Medications: Current Medications Albuterol Sulfate (Albuterol Sulfate (0.083%) 2.5 Mg/3 Ml Vial.Neb) 2.5 mg INHALE ONCE PRN PRN Reason: Shortness of Breath/Wheezing Last Admin: 05/24/22 15:58 Dose: 2.5 mg Hydromorphone HCl (Hydromorphone Hcl 1 Mg/Ml Syringe) 1 mg IVPUSH Q4H PRN; Protocol PRN Reason: Pain, Moderate (Pain Scale 4-6 Last Admin: 05/24/22 12:50 Dose: 1 mg Lactated Ringer's (Lr) 1,000 mls @ 100 mls/hr IVCONT .Q10H GIOVANNA Last Admin: 05/24/22 15:58 Dose: 100 mls/hr Home Medications Medication Instructions Recorded Confirmed Last Taken Type ascorbate calcium (vitamin C) 500 500 mg PO DAILY 04/06/21 05/21/22 Unknown History mg tablet cholecalciferol (vitamin D3) 10 10 mcg PO DAILY 04/06/21 05/21/22 Unknown History mcg (400 unit) capsule mecobalamin (vitamin B12) 5,000 5,000 mcg PO DAILY 04/06/21 05/21/22 Unknown History mcg lozenge multivitamin 1 tab PO DAILY 04/06/21 05/21/22 Unknown History Exam Exam Date and Time: May 24, 2022 1627 Height,Weight and Vital Signs: Height 5 ft 5 in Weight 106.594 kg Last Vital Signs Temp 99.4 F 05/24/22 16:14 Pulse 70 05/24/22 16:14 Resp 20 05/24/22 16:14 BP 119/69 05/24/22 16:14 Pulse Ox 93 05/24/22 16:14 O2 Del Method 05/24/22 16:14 O2 Flow Rate 2 05/24/22 16:14 Pertinent Lab Results Pertinent Lab Results: Laboratory Tests 05/24/22 05/24/22 05/24/22 00:27 00:27 00:27 WBC 10.2 RBC 4.31 Hgb 13.1 Hct 38.9 MCV 90.3 MCH 30.4 MCHC 33.7 RDW 14.5 Plt Count 235 MPV 9.7 Immature Gran % (Auto) 0.3 Neut % (Auto) 79.8 H Lymph % (Auto) 13.4 L [place] % (Auto) 5.7 Eos % (Auto) 0.5 Baso % (Auto) 0.3 Lymph # (Auto) 1.4 [place] # (Auto) 0.6 Eos # (Auto) 0.1 Baso # (Auto) 0.0 Abs Immat Gran (auto) 0.03 Absolute Neuts (auto) 8.2 Absolute Nucleated RBC 0.000 Nucleated RBC % (auto) 0.0 PT INR APTT Sodium 137 Potassium 4.2 Chloride 103 Carbon Dioxide 26 Anion Gap 12 BUN 20 H Creatinine 1.41 H Estim Creat Clear Calc 48.2 Estimated GFR 37 Random Glucose 178 H Calcium 8.5 D Total Bilirubin 0.6 Direct Bilirubin 0.3 AST 20 ALT 21 Alkaline Phosphatase 133 H Total Protein 6.7 Albumin 3.8 Urine Color Urine Appearance Urine pH Ur Specific [place] Urine Protein Urine Glucose (UA) Urine Ketones Urine Blood Urine Nitrite Ur Leukocyte Esterase Urine RBC Urine WBC Ur Squamous Epith Cells Calcium Phosphate Cryst Urine Bacteria COVID-19 (RADHA) Negative COVID-19 Clin Com See Note 05/24/22 05/24/22 00:38 07:18 WBC RBC Hgb Hct MCV MCH MCHC RDW Plt Count MPV Immature Gran % (Auto) Neut % (Auto) Lymph % (Auto) [place] % (Auto) Eos % (Auto) Baso % (Auto) Lymph # (Auto) [place] # (Auto) Eos # (Auto) Baso # (Auto) Abs Immat Gran (auto) Absolute Neuts (auto) Absolute Nucleated RBC Nucleated RBC % (auto) PT 23.5 H INR 2.0 H APTT 57.3 H Sodium Potassium Chloride Carbon Dioxide Anion Gap BUN Creatinine Estim Creat Clear Calc Estimated GFR Random Glucose Calcium Total Bilirubin Direct Bilirubin AST ALT Alkaline Phosphatase Total Protein Albumin Urine Color YELLOW Urine Appearance CLEAR Urine pH 7.0 Ur Specific [place] 1.015 Urine Protein NEG Urine Glucose (UA) NEG Urine Ketones NEG Urine Blood 2+ H Urine Nitrite NEG Ur Leukocyte Esterase TRACE H Urine RBC 5-9 H Urine WBC 1-4 Ur Squamous Epith Cells 1+ Calcium Phosphate Cryst TRACE Urine Bacteria TRACE COVID-19 (RADHA) COVID-19 Clin Com Airway Mallampati Class: II TM Dist: >3cm Neck ROM: Full Loose/Missing/Broken Teeth: No Heart: RRR Lungs: mild wheezing bilaterally Assessment and Plan Assessment Anesthesia Assessment: Anesthesia Plan Discussed and Chart Reviewed Final Anesthetic Review Family History of Problems with Anesthesia: No History of Problems with Anesthesia: No NPO: Yes ASA Class: III and Emergency Final Preanesthetic Review: No Changes in Pt Med Stat, Meds/Allgs Chart Reviewed, Consent Obtained/Reviewed and Anes Risks/Benef Reviewed Patient Risk: Intermediate Procedure Risk: Low Anesthetic Plan Anesthetic Plan: GA Disposition: Standard PACU
--- NOTE | 2022-05-24 16:47 | P.HPSUR_ITS ---
Pre-Procedural Eval Section A Date of Service: 05/24/22 The patient is an INPATIENT: Yes Changes since office visit: No Cold of Flu in the past 2 weeks, No New Medical Problems, No Changes in Medication and No Patient answered all questions The History & Physical has been completed within 30 days and I have reviewed it.: Yes Section B Chief Complaint: abd & lower back pain Details of Present Illness: left ureteroscopy laser lithotripsy Medical History: Significant History History of Previous Operations: No relevant previous surgery Allergies: Allergies Allergy/AdvReac Type Severity Reaction Status Date / Time Sulfa (Sulfonamide Allergy Unknown RASH Verified 05/21/22 07:50 Antibiotics) [SULFA(SULFONAMIDE ANTIBIOTICS)] codeine AdvReac Vomiting Verified 05/21/22 07:50 oxycodone AdvReac Gastrointestinal Verified 05/21/22 07:50 Upset Review of Systems Sugical H&P ROS: Negative: Constitution, Cardiovascular, Respiratory, Neurological, Psychiatric, Hem-Onc, Allergic/Immunologic, Gastrointestinal, Ge nitourinary, Musculoskeletal, Integumentary, Endocrine and Eyes/Ears/Nose/Throat Exam Surgical H&P Exam: Normal: HEENT, Normal: Heart, Normal: Lungs, Normal: Extremities, Normal: Abdomen, Normal: Skin and Normal: Neurological Plan Diagnosis/Plan: Unchanged (retrograde, ureteroscopy, laser left side stent) I have reviewed the history and physical and performed a pertinent physical examination on my patient. No changes have occurred unless specified.
[2022-05-24] MEDS: levoFLOXacin/D5W 500 MG/100 ML PIGGYBACK 100 MG IV (16:58)
--- NOTE | 2022-05-24 17:41 | P.OP_ITS ---
Operative Note Operative Note Date of Service: 05/24/22 Narrative: PreOperative Diagnosis: Left distal ureteric stone Post Operative Diagnosis: same Procedure: - cystoscopy, left retrograde - left dilatation of ureteric orifice under fluoroscopy - left ureteroscopy, laser lithotripsy, stone basketing - left stent placement Surgeon: Dr Julian Arguelles Anesthesia: General Indications for procedure: left distal ureteric stone with creatinine 1.4, hydroureteronephrosis Procedure: After informed consent was verified patient was brought to the operating placed in supine position. Anesthesia was administered per protocol. Patient was placed in modified dorsal lithotomy position and prepped and draped in a sterile fashion. Safety pause time-out and side of surgery confirmed. Antibiotics confirmed. 22 Icelandic cystoscope was inserted per urethra. Bladder was normal in its entirety. Both ureteric orifices were in normal position. cystocele with dropped bladder. The Left ureteric orifice was cannulated and a retrograde examination was performed. filling defect in distal portion of left ureter . A Sensor guidewire was placed up to the level of the renal pelvis under fluoroscopy. The rigid cystoscope was removed and the inner cannula of ureteric access sheath was used under fluoroscopy to dilate the ureteric orifice. Rohan dilator used to dilate ureteral orifice. Rigid scope placed. Stone encountered in distal portion of ureter. Laser used to break stone into small pieces with power setting of 1 joule and 0.8 hertz. Basketing was used to remove stone fragments. A 6 Icelandic by Twenty-four cm double-J stent was placed into the renal pelvis and bladder under a combination of fluoroscopy and direct visualization. The bladder was emptied. The patient tolerated the procedure well and was extubated in the operating room, and transferred in stable condition to the recovery area. Pathology: stones Drains: double-J stent
[2022-05-24 18:53] LABS: Lactic Acid 2.2 mmol/L (0.5-2.0)
--- NOTE | 2022-05-24 18:57 | PC.NURSE ---
[address] MILLER AND DR. EWING MADE AWARE. PATIENT RECEIVED 1L NS AND 1L LACTATED RINGER SINCE ADMISSION HAS HX DIASTOLIC CHF DID NOT TAKE LASIX HOME MEDICATION TODAY. QUESTION NEW ORDERS AND WHETHER NEED ADDITIONAL ANTIBIOTIC
[2022-05-24 20:34] LABS: Reflex Lactate? Lactic Acid Added
[2022-05-24] MEDS: cefTRIAXone sodium 1 GM in 0.9 % Sodium Chloride 50 ML IV (20:54)
[2022-05-24] MEDS: Phenazopyridine HCL 100 MG TABLET PO (20:54)
[2022-05-24 20:58] LABS: Lactic Acid 1.6 mmol/L (0.5-2.0)
[2022-05-24 21:20] LABS: Glucose, Whole Blood 132 mg/dL (60-115)
[2022-05-24] MEDS: Gabapentin 300 MG CAPSULE PO (22:43)
[2022-05-24] MEDS: Amiodarone HCL 200 MG TABLET PO (22:43)
[2022-05-25] MEDS: Lactated Ringers 1,000 ML 100 ML IVCONT (03:16)
[2022-05-25 03:57] VITALS: BP 97/56; PULSE 54; TEMP 36.2
[2022-05-25] MEDS: Acetaminophen 325 MG TABLET 650 MG PO ×2 (06:09→15:40)
--- NOTE | 2022-05-25 06:22 | PM.EVENT ---
Event Note Date of Service: 05/25/22 Event Note: Patient reports upper extremity swelling, she also has lower extremity edema Will hold fluid, obtain BNP, resume [employer]
[2022-05-25 06:58] LABS: MANUAL DIFF FLAG NO
[2022-05-25 07:13] LABS: Basophils Percent Auto 0.2 % (0-2); Eosinophils Absolute Auto 0.2 X10*3/uL (0.0-0.4); Eosinophils Percent Auto 1.8 % (0-4); Hematocrit 36.7 % (37.0-47.0); Hemoglobin 11.9 g/dl (12.0-16.0); Imm Gran Abs Auto 0.07 X10*3/uL (0.00-0.03); Imm Gran Pct Auto 0.6 % (0.0-0.4); Lymphocytes Absolute Auto 0.8 X10*3/uL (1.2-4.9); Lymphocytes Percent Auto 6.1 % (20-40); Mean Corpuscular HGB Conc 32.4 g/dl (31.0-35.0); Mean Corpuscular Hemoglobin 30.4 pg (27.0-33.0); Mean Corpuscular Volume 93.6 fL (80.0-98.0); Mean Platelet Volume 10.3 fL (9.4-12.3); Monocytes Absolute Auto 0.5 X10*3/uL (0.1-1.2); Monocytes Percent Auto 4.1 % (2-11); Neutrophils Absolute Auto 10.9 x10*3/uL (2.0-8.3); Neutrophils Percent Auto 87.2 % (45-73); Platelet Count 199 X10*3/uL (160-400); Red Blood Count 3.92 X10*6/uL (4.20-5.50); Red Cell Distribution Width 15.4 % (11.0-16.0); White Blood Count 12.5 X10*3/uL (4.8-10.8)
[2022-05-25 07:14] LABS: INTERNATIONAL NORM RATIO 2.3 (0.9-1.1); Prothrombin Time 27.6 SEC (10.0-13.1)
[2022-05-25 07:27] LABS: B Type Natriuretic Peptide 316 pg/mL (<100)
[2022-05-25 07:32] LABS: Anion Gap 10 (12-20); Carbon Dioxide 28 mmol/L (22-29); Chloride 105 mmol/L (96-108); Potassium 4.5 mmol/L (3.3-5.1); Sodium 138 mmol/L (135-145)
[2022-05-25] MEDS: Cyanocobalamin (Vitamin B-12) 1,000 MCG TABLET 1000 MCG PO (07:33)
[2022-05-25] MEDS: Bumetanide 1 MG TABLET PO (07:33)
[2022-05-25] MEDS: Ascorbic Acid 500 MG TABLET PO (07:33)
[2022-05-25] MEDS: Multivitamin TABLET 1 TAB PO (07:33)
[2022-05-25] MEDS: Cholecalciferol (Vitamin D3) 10 MCG TABLET PO (07:34)
[2022-05-25] MEDS: Gabapentin 300 MG CAPSULE PO ×2 (07:34→21:39)
[2022-05-25] MEDS: Amiodarone HCL 200 MG TABLET PO (07:34)
[2022-05-25 07:35] LABS: Anion Gap 10 (12-20); Blood Urea Nitrogen 18 mg/dL (9-16); Calcium 8.4 mg/dL (8.4-10.2); Carbon Dioxide 27 mmol/L (22-29); Chloride 104 mmol/L (96-108); Creatinine Clr Calc Pharmacy 55.6; Estimated Glomerular Filt Rate 40; Glucose Random 115 mg/dL (60-115); Potassium 4.7 mmol/L (3.3-5.1); Sodium 136 mmol/L (135-145)
[2022-05-25 07:52] VITALS: BP 114/65; PULSE 53; RESP 20; TEMP 36.6; O2SAT 96
--- NOTE | 2022-05-25 10:03 | MHC.CM.PN ---
Patient lives alone: owns walker, cane, still drives self to/from appts. 2-3 steps to enter home. At this time (during self-reported time of weakness), patient is staying w/her son Jason. No prior VNA. Plan is home (?) services via [facility] at D/C readiness. CM to follow.
--- NOTE | 2022-05-25 11:55 | P.CONIM_ITS ---
History of Present Illness Data of Consult Service Date: 05/25/22 Requesting physician: Julian Arguelles Primary Care Provider: Dena Gore MD HPI Reason for consult: post procedure SIRS This is a 66-year-old female who presented to the emergency department with left flank pain found to have 7 mm left ureteric stone. She was admitted to the hospital by the urology service in underwent lithotripsy and left stent placement. The hospitalists were asked to see her in consultation as she was noted to meet SIRS criteria postprocedure. She has 2 sets of vital signs obtained at the same time last night showing slightly different results. Unclear which set of vital signs is accurate. There is documented temperature of 100.9 degrees and documented respiratory rate of 22. At that time she also had lactic acid of 2.2. WBC count from 05/24 shows no leukocytosis. She was started on IV ceftriaxone. This morning the patient is afebrile without tachycardia, white count has increased to 12.5. Pain has resolved at this point. COVID-19 vaccination status-unvaccinated Review of Systems Review of Systems: Yes all other systems are reviewed and are negative Constitutional: Constitutional: Denies chills and Denies fever(s) Cardiovascular: Cardiovascular: Denies chest pain, Denies palpitations and Denies dyspnea Respiratory: Respiratory: Denies cough and Denies dyspnea Gastrointestinal: Gastrointestinal: Denies abdominal pain, Denies nausea and Denies vomiting Endocrine: Endocrine: Denies palpitations [facility] Medical History Ankle pain, right CKD (chronic kidney disease) stage 3, GFR 30-59 ml/min Diastolic heart failure Diverticulitis DVT (deep venous thrombosis) Hip pain History of deep vein thrombophlebitis of lower extremity Hyperkalemia Hyperlipidemia Iliotibial band syndrome Knee pain Low back pain Lower back pain Lumbosacral radiculopathy due to osteoarthritis of spine Morbid obesity Obesity BERE (obstructive sleep apnea) Osteoarthritis of right ankle and foot Paroxysmal A-fib Peripheral vascular complication of surgical procedure Peripheral vascular disease Positive ALVIN (antinuclear antibody) Postmenopausal Venous insufficiency of both lower extremities Family History Father Emphysema, unspecified Mother No problems noted. Brother Atrial fibrillation Sister Atrial fibrillation Surgical History H/O hysterectomy for benign disease History of cardiac cath Hx of vascular surgery Social History Household Members: None Housing: Apartment Do you presently have visiting nurse or other home services: No Alcohol intake: never Patient Tobacco Use Status: Former Tobacco user e-Cigarette/Vaping Use: Never Used Use of substances other than those prescribed or required for medical reasons: No Currently Displaying Signs/Symptoms of Drug Intoxication Withdrawal: No Do you feel safe in your current relationship?: No Current Relationship Are you DNR?: No Advance Directives: No Advance Directives Information Provided: No Do you have thoughts of harming others: None Do you have a plan to hurt others: No Plan Recently lost weight without trying: No Nutrition Risks: No Nutritional Risk Patient : No : No Poor oral hygiene: No service: No Current occupational status: disabled Current occupation: rt handed/[employer] Cognitive needs: No Hearing needs: No Vision needs: No Meds Allergies Allergy/AdvReac Type Severity Reaction Status Date / Time Sulfa (Sulfonamide Allergy Unknown RASH Verified 05/21/22 07:50 Antibiotics) [SULFA(SULFONAMIDE ANTIBIOTICS)] codeine AdvReac Vomiting Verified 05/21/22 07:50 oxycodone AdvReac Gastrointestinal Verified 05/21/22 07:50 Upset Active Medications: Current Medications Acetaminophen (Acetaminophen 325 Mg Tablet) 650 mg PO Q4H PRN PRN Reason: Pain, Mild (Pain Scale 1-3) Last Admin: 05/25/22 06:09 Dose: 650 mg Albuterol Sulfate (Albuterol Sulfate (0.083%) 2.5 Mg/3 Ml Vial.Neb) 2.5 mg INHALE ONCE PRN PRN Reason: Shortness of Breath/Wheezing Last Admin: 05/24/22 15:58 Dose: 2.5 mg Albuterol Sulfate (Albuterol Sulfate (0.083%) 2.5 Mg/3 Ml Vial.Neb) 2.5 mg INHALE ONCE PRN PRN Reason: Wheezing Amiodarone HCl (Amiodarone Hcl 200 Mg Tablet) 200 mg PO DAILY [facility] Last Admin: 05/25/22 07:34 Dose: 200 mg Ascorbic Acid (Ascorbic Acid 500 Mg Tablet) 500 mg PO DAILY [facility] Last Admin: 05/25/22 07:33 Dose: 500 mg Bumetanide (Bumetanide 1 Mg Tablet) 1 mg PO DAILY [facility]; Protocol Last Admin: 05/25/22 07:33 Dose: 1 mg Cyanocobalamin (Cyanocobalamin (Vitamin B-12) 1,000 Mcg Tablet) 1,000 mcg PO DAILY [facility] Last Admin: 05/25/22 07:33 Dose: 1,000 mcg Fentanyl (Fentanyl Citrate/Pf 100 Mcg/2 Ml Vial) 50 mcg IVPUSH Q5M PRN; Protocol PRN Reason: Pain, Severe (Pain Scale 7-10) Gabapentin (Gabapentin 300 Mg Capsule) 300 mg PO BID [facility] Last Admin: 05/25/22 07:34 Dose: 300 mg Hydromorphone HCl (Hydromorphone Hcl 1 Mg/Ml Syringe) 1 mg IVPUSH Q4H PRN; Protocol PRN Reason: Pain, Moderate (Pain Scale 4-6 Last Admin: 05/24/22 12:50 Dose: 1 mg Hydromorphone HCl (Hydromorphone Hcl 0.5 Mg/0.5 Ml Syringe) 0.5 mg IVPUSH Q5M PRN; Protocol PRN Reason: Pain, Severe (Pain Scale 7-10) Promethazine HCl 12.5 mg/ (Sodium Chloride) 50.5 mls @ 202 mls/hr IV ONCE PRN PRN Reason: Nausea and Vomiting Ceftriaxone Sodium 1 gm/ (Sodium Chloride) 50 mls @ 100 mls/hr IV Q24H [facility] Last Infusion: 05/24/22 21:31 Dose: Infused Multivitamins/Vitamin C (Multivitamin Tablet) 1 tab PO DAILY [facility] Last Admin: 05/25/22 07:33 Dose: 1 tab Ondansetron HCl (Ondansetron Hcl 4 Mg/2 Ml Vial) 4 mg IVPUSH Q8H PRN PRN Reason: Nausea and Vomiting Tramadol HCl (Tramadol Hcl 50 Mg Tablet) 50 mg PO Q6H PRN PRN Reason: Pain, Moderate (Pain Scale 4-6 Vitamin D (Cholecalciferol (Vitamin D3) 10 Mcg Tablet) 10 mcg PO DAILY [facility] Last Admin: 05/25/22 07:34 Dose: 10 mcg Warfarin Sodium (Warfarin Sodium 2.5 Mg Tablet) 2.5 mg PO DAILY@1800 [facility] Home Medications Medication Instructions Recorded Confirmed Last Taken Type ascorbate calcium (vitamin C) 500 500 mg PO DAILY 04/06/21 05/24/22 Unknown History mg tablet cholecalciferol (vitamin D3) 10 10 mcg PO DAILY 04/06/21 05/24/22 Unknown History mcg (400 unit) capsule mecobalamin (vitamin B12) 5,000 5,000 mcg PO DAILY 04/06/21 05/24/22 Unknown History mcg lozenge multivitamin 1 tab PO DAILY 04/06/21 05/24/22 1 Day Ago History ~05/23/22 1 tab Physical Exam Vital Signs and Narrative: Vital Signs: Last Vital Signs Temp 97.8 F 05/25/22 07:52 Pulse 53 05/25/22 07:52 Resp 20 05/25/22 07:52 BP 114/65 05/25/22 07:52 Pulse Ox 96 05/25/22 07:52 O2 Del Method 05/25/22 07:52 O2 Flow Rate 3 05/25/22 07:52 BMI result Body Mass Index 45.2 Const: General: cooperative, comfortable, alert and awake Nutritional Appearance: obese Orientation/consciousness: patient oriented x3 Resp: Effort & Inspection: normal respiratory effort and able to speak in complete sentences Auscultation: clear to auscultation bilaterally Cardio: Rate: regular rate Heart sounds: S1 normal heart sound present and S2 normal heart sound present GI: Inspection: No distended Palpation (GI): Soft to palpation and nontender Neuro: General: patient oriented x3 Extrem: Other: b/l leg edema Results Labs CBC and Chem 7: 05/25/22 06:20 05/25/22 06:20 Labs: Laboratory Results - last 24 hr 05/24/22 05/24/22 05/24/22 18:27 20:36 21:13 MCV MCH MCHC RDW Plt Count MPV Immature Gran % (Auto) Neut % (Auto) Lymph % (Auto) Adams % (Auto) Eos % (Auto) Baso % (Auto) Lymph # (Auto) Adams # (Auto) Eos # (Auto) Baso # (Auto) Abs Immat Gran (auto) Absolute Neuts (auto) Absolute Nucleated RBC Nucleated RBC % (auto) PT INR Anion Gap Estim Creat Clear Calc Estimated GFR POC Glucose 132 H Random Glucose Lactic Acid 2.2 H* 1.6 Calcium B-Natriuretic Peptide 05/25/22 05/25/22 05/25/22 06:20 06:20 06:20 MCV 93.6 MCH 30.4 MCHC 32.4 RDW 15.4 Plt Count 199 MPV 10.3 Immature Gran % (Auto) 0.6 H Neut % (Auto) 87.2 H Lymph % (Auto) 6.1 L Adams % (Auto) 4.1 Eos % (Auto) 1.8 Baso % (Auto) 0.2 Lymph # (Auto) 0.8 L Adams # (Auto) 0.5 Eos # (Auto) 0.2 Baso # (Auto) 0.0 Abs Immat Gran (auto) 0.07 H Absolute Neuts (auto) 10.9 H Absolute Nucleated RBC 0.000 Nucleated RBC % (auto) 0.0 PT INR Anion Gap 10 L 10 L Estim Creat Clear Calc 55.6 Estimated GFR 40 POC Glucose Random Glucose 115 Lactic Acid Calcium 8.4 B-Natriuretic Peptide 05/25/22 05/25/22 06:20 06:46 MCV MCH MCHC RDW Plt Count MPV Immature Gran % (Auto) Neut % (Auto) Lymph % (Auto) Adams % (Auto) Eos % (Auto) Baso % (Auto) Lymph # (Auto) Adams # (Auto) Eos # (Auto) Baso # (Auto) Abs Immat Gran (auto) Absolute Neuts (auto) Absolute Nucleated RBC Nucleated RBC % (auto) PT 27.6 H INR 2.3 H Anion Gap Estim Creat Clear Calc Estimated GFR POC Glucose Random Glucose Lactic Acid Calcium B-Natriuretic Peptide 316 H Assessment and Plan (1) Kidney stone on left side: Status: Acute Plan This is a 66 year female with history of BERE on CPAP, PVD, HFpEF, PAF, h/o DVT who presents with left flank pain found to have 7 mm ureteric stone s/p lithotripsy and left stent placement SIRS patient did meet sirs criteria, with temp 100.9, RR 22 at that time LA 2.2, resolved with IVF UA not overwhelmingly positive - no urine culture was obtained and unable to be added on likely due to instrumentation from procedure blood cultures pending -will continue IV ceftriaxone acute respiratory failure with hypoxia O2 sat documented 89% on room air 05/24 ? post procedure check CXR Wean oxygen as tolerated Left ureteric stone s/p lithotripsy and stent placement management per urology HFpEF has some leg edema continue home bumex Paroxysmal atrial fibrillation s/p CV 08/2020 Appears to be in sinus rhythm at this time Continue amiodarone Continue Coumadin, INR therapeutic at 2.3 Follow INR BERE- CPAP DVT prophylaxis - Coumadin Attending-Dr. Foley
[2022-05-25 15:35] VITALS: BP 102/55; PULSE 84; RESP 19; TEMP 39.2; O2SAT 92
[2022-05-25 16:23] LABS: Hematocrit 37.1 % (37.0-47.0); Hemoglobin 12.2 g/dl (12.0-16.0); Mean Corpuscular HGB Conc 32.9 g/dl (31.0-35.0); Mean Corpuscular Hemoglobin 30.4 pg (27.0-33.0); Mean Corpuscular Volume 92.5 fL (80.0-98.0); Platelet Count 180 X10*3/uL (160-400); Red Blood Count 4.01 X10*6/uL (4.20-5.50); Red Cell Distribution Width 15.1 % (11.0-16.0); White Blood Count 8.9 X10*3/uL (4.8-10.8)
[2022-05-25 16:24] LABS: Appearance Urine CLOUDY; Glucose Urine UA NEG (NEG); Leukocyte Esterase Urine TRACE (NEG); Nitrite Urine NEG (NEG); Specific Gravity - Urine 1.025 (1.005-1.025); UACC Culture Trigger NO; Urine Blood 3+ (NEG); Urine Ketones NEG (NEG); Urine Protein 2+ MG/DL (NEG-TRACE)
[2022-05-25] MEDS: Warfarin Sodium 2.5 MG TABLET PO (16:26)
[2022-05-25 16:28] LABS: Color Urine OTHER
[2022-05-25] MEDS: Piperacillin Sodium/Tazobactam 4.5 GM in 0.9 % Sodium Chloride 100 ML IV ×2 (16:28→21:39)
[2022-05-25 16:34] LABS: Bacteria Urine TRACE /LPF; Mucus Urine 1+ /LPF; RBC Urine TNTC /HPF (0); Squamous Epithelial Cell Urine 1+ /LPF
[2022-05-25 16:35] LABS: Lactic Acid 1.3 mmol/L (0.5-2.0)
--- NOTE | 2022-05-25 16:39 | HO.POSTANES ---
Post Anesthesia Evaluation Post Anesthesia Evaluation Vital Signs: Vital Signs Temp Pulse Resp BP Pulse Ox O2 Del Method O2 Flow Rate 05/25/22 15:35 102.6 F H 84 19 102/55 L 92 Nasal Cannula 2.5 05/25/22 07:52 97.8 F 53 20 114/65 96 Nasal Cannula 3 Anesthesia: General LMA Mental Status: Awake Pain Control: Satisfactory Nausea/Vomiting: None Hydration: Adequate Anesthesia-Related Issues: No Anes. Related Issues
[2022-05-25 18:10] VITALS: O2SAT 92
[2022-05-25 20:28] LABS: Glucose, Whole Blood 144 mg/dL (60-115)
[2022-05-26] VITALS (7 sets, daily range): BP systolic 104–138; BP diastolic 56–96; PULSE 56–87; RESP 18–20; TEMP 36.4–38.1; O2SAT 92–97
[2022-05-26] MEDS: Piperacillin Sodium/Tazobactam 4.5 GM in 0.9 % Sodium Chloride 100 ML IV ×4 (04:11→22:34)
[2022-05-26] MEDS: Acetaminophen 325 MG TABLET 650 MG PO (04:30)
[2022-05-26 07:13] LABS: Hematocrit 34.2 % (37.0-47.0); Hemoglobin 11.2 g/dl (12.0-16.0); INTERNATIONAL NORM RATIO 1.9 (0.9-1.1); Mean Corpuscular HGB Conc 32.7 g/dl (31.0-35.0); Mean Corpuscular Hemoglobin 30.1 pg (27.0-33.0); Mean Corpuscular Volume 91.9 fL (80.0-98.0); Mean Platelet Volume 10.2 fL (9.4-12.3); Platelet Count 170 X10*3/uL (160-400); Prothrombin Time 22.1 SEC (10.0-13.1); Red Blood Count 3.72 X10*6/uL (4.20-5.50); Red Cell Distribution Width 15.2 % (11.0-16.0); White Blood Count 6.5 X10*3/uL (4.8-10.8)
[2022-05-26 07:25] LABS: Anion Gap 11 (12-20); Blood Urea Nitrogen 19 mg/dL (9-16); Calcium 8.2 mg/dL (8.4-10.2); Carbon Dioxide 25 mmol/L (22-29); Chloride 104 mmol/L (96-108); Creatinine Clr Calc Pharmacy 51.3; Estimated Glomerular Filt Rate 37; Glucose Random 138 mg/dL (60-115); Potassium 3.9 mmol/L (3.3-5.1); Sodium 136 mmol/L (135-145)
[2022-05-26] MEDS: Bumetanide 1 MG TABLET PO (07:47)
[2022-05-26] MEDS: Amiodarone HCL 200 MG TABLET PO (07:47)
[2022-05-26] MEDS: Cholecalciferol (Vitamin D3) 10 MCG TABLET PO (07:47)
[2022-05-26] MEDS: Multivitamin TABLET 1 TAB PO (07:47)
[2022-05-26] MEDS: Gabapentin 300 MG CAPSULE PO ×2 (07:48→19:54)
[2022-05-26] MEDS: Ascorbic Acid 500 MG TABLET PO (07:48)
[2022-05-26] MEDS: Cyanocobalamin (Vitamin B-12) 1,000 MCG TABLET 1000 MCG PO (07:48)
--- NOTE | 2022-05-26 09:39 | HO.PM.IMPN ---
Subjective Subjective Date of Service: 05/26/22 Interval History: seen and examined this morning follow up for left renal stone s/p stent placement developed fever yesterday afternoon patient feeling better this am, but reporting swelling of arms and feet mild sob, no chest pain Review of Systems Review of Systems: Yes all other systems are reviewed and are negative Constitutional Constitutional: Denies chills and Denies fever(s) Cardiovascular Cardiovascular: Denies chest pain, Denies palpitations and Reports dyspnea Respiratory Respiratory: Denies cough and Reports dyspnea Gastrointestinal Gastrointestinal: Denies abdominal pain, Denies nausea and Denies vomiting Endocrine Endocrine: Denies palpitations Physical Exam Vital Signs: Vital Signs: Last Vital Signs Temp 97.6 F 05/26/22 08:00 Pulse 56 05/26/22 08:00 Resp 20 05/26/22 08:00 BP 121/56 L 05/26/22 08:00 Pulse Ox 96 05/26/22 08:00 O2 Del Method 05/26/22 08:00 O2 Flow Rate 3 05/26/22 08:00 Oxygen Flow Rate 3 05/25/22 18:10 BMI result Body Mass Index 45.2 Const: General: cooperative, comfortable, alert and awake Nutritional Appearance: obese Orientation/consciousness: patient oriented x3 Resp: Effort & Inspection: normal respiratory effort and able to speak in complete sentences Auscultation: crackles Cardio: Rate: regular rate Heart sounds: S1 normal heart sound present and S2 normal heart sound present GI: Inspection: No distended Palpation (GI): Soft to palpation and nontender Neuro: General: patient oriented x3 Extrem: Other: b/l leg edema Objective Data Active Medications Acetaminophen (Acetaminophen 325 Mg Tablet) 650 mg PO Q4H PRN PRN Reason: Pain, Mild (Pain Scale 1-3) Last Admin: 05/26/22 04:30 Dose: 650 mg Documented By: DEBORAH Albuterol Sulfate (Albuterol Sulfate (0.083%) 2.5 Mg/3 Ml Vial.Neb) 2.5 mg INHALE ONCE PRN PRN Reason: Shortness of Breath/Wheezing Last Admin: 05/24/22 15:58 Dose: 2.5 mg Documented By: JANAE Albuterol Sulfate (Albuterol Sulfate (0.083%) 2.5 Mg/3 Ml Vial.Neb) 2.5 mg INHALE ONCE PRN PRN Reason: Wheezing Amiodarone HCl (Amiodarone Hcl 200 Mg Tablet) 200 mg PO DAILY [facility] Last Admin: 05/26/22 07:47 Dose: 200 mg Documented By: CAMILO Ascorbic Acid (Ascorbic Acid 500 Mg Tablet) 500 mg PO DAILY [facility] Last Admin: 05/26/22 07:48 Dose: 500 mg Documented By: CAMILO Bumetanide (Bumetanide 1 Mg Tablet) 1 mg PO DAILY [facility]; Protocol Last Admin: 05/26/22 07:47 Dose: 1 mg Documented By: CAMILO Cyanocobalamin (Cyanocobalamin (Vitamin B-12) 1,000 Mcg Tablet) 1,000 mcg PO DAILY [facility] Last Admin: 05/26/22 07:48 Dose: 1,000 mcg Documented By: CAMILO Furosemide (Furosemide 40 Mg/4 Ml Vial) 40 mg IVPUSH BID@0900,1800 [facility]; Protocol Gabapentin (Gabapentin 300 Mg Capsule) 300 mg PO BID [facility] Last Admin: 05/26/22 07:48 Dose: 300 mg Documented By: CAMILO Hydromorphone HCl (Hydromorphone Hcl 1 Mg/Ml Syringe) 1 mg IVPUSH Q4H PRN; Protocol PRN Reason: Pain, Moderate (Pain Scale 4-6 Last Admin: 05/24/22 12:50 Dose: 1 mg Documented By: JOSE Piperacillin Sod/Tazobactam (Sod 4.5 gm/ Sodium Chloride) 100 mls @ 200 mls/hr IV Q6H [facility] Last Admin: 05/26/22 09:24 Dose: 200 mls/hr Documented By: CAMILO Multivitamins/Vitamin C (Multivitamin Tablet) 1 tab PO DAILY [facility] Last Admin: 05/26/22 07:47 Dose: 1 tab Documented By: CAMILO Ondansetron HCl (Ondansetron Hcl 4 Mg/2 Ml Vial) 4 mg IVPUSH Q8H PRN PRN Reason: Nausea and Vomiting Tramadol HCl (Tramadol Hcl 50 Mg Tablet) 50 mg PO Q6H PRN PRN Reason: Pain, Moderate (Pain Scale 4-6 Vitamin D (Cholecalciferol (Vitamin D3) 10 Mcg Tablet) 10 mcg PO DAILY [facility] Last Admin: 05/26/22 07:47 Dose: 10 mcg Documented By: CAMILO Warfarin Sodium (Warfarin Sodium 2.5 Mg Tablet) 2.5 mg PO DAILY@1800 [facility] Last Admin: 05/25/22 16:26 Dose: 2.5 mg Documented By: CAMILO Labs CBC & Chem 7: 05/26/22 06:23 05/26/22 06:23 Labs: Laboratory Results - last 24 hr 05/25/22 05/25/22 05/25/22 16:10 16:11 16:11 MCV 92.5 MCH 30.4 MCHC 32.9 RDW 15.1 Plt Count 180 MPV 10.0 Absolute Nucleated RBC 0.000 Nucleated RBC % (auto) 0.0 PT INR Anion Gap Estim Creat Clear Calc Estimated GFR POC Glucose Random Glucose Lactic Acid 1.3 Calcium Urine Color OTHER A Urine Appearance CLOUDY Urine pH 5.0 Ur Specific [place] 1.025 Urine Protein 2+ H Urine Glucose (UA) NEG Urine Ketones NEG Urine Blood 3+ H Urine Nitrite NEG Ur Leukocyte Esterase TRACE H Urine RBC TNTC H Urine WBC 5-9 H Ur Squamous Epith Cells 1+ Urine Bacteria TRACE Urine Mucus 1+ 05/25/22 05/26/22 05/26/22 20:02 06:23 06:23 MCV 91.9 MCH 30.1 MCHC 32.7 RDW 15.2 Plt Count 170 MPV 10.2 Absolute Nucleated RBC 0.000 Nucleated RBC % (auto) 0.0 PT INR Anion Gap 11 L Estim Creat Clear Calc 51.3 Estimated GFR 37 POC Glucose 144 H Random Glucose 138 H Lactic Acid Calcium 8.2 L Urine Color Urine Appearance Urine pH Ur Specific [place] Urine Protein Urine Glucose (UA) Urine Ketones Urine Blood Urine Nitrite Ur Leukocyte Esterase Urine RBC Urine WBC Ur Squamous Epith Cells Urine Bacteria Urine Mucus 05/26/22 06:23 MCV MCH MCHC RDW Plt Count MPV Absolute Nucleated RBC Nucleated RBC % (auto) PT 22.1 H INR 1.9 H Anion Gap Estim Creat Clear Calc Estimated GFR POC Glucose Random Glucose Lactic Acid Calcium Urine Color Urine Appearance Urine pH Ur Specific [place] Urine Protein Urine Glucose (UA) Urine Ketones Urine Blood Urine Nitrite Ur Leukocyte Esterase Urine RBC Urine WBC Ur Squamous Epith Cells Urine Bacteria Urine Mucus Microbiology Microbiology Results: Microbiology 05/25/22 16:04 Urine Culture - Preliminary Urine clean catch - Clean Catch Midstream No growth to date. 07/01/22 18:27 Blood Culture - Preliminary Blood - Venous No growth after 24 hours. Assessment and Plan (1) Kidney stone on left side: Status: Acute (2) Obstructive sleep apnea: Status: Acute Plan This is a 66 year female with history of BERE on CPAP, PVD, HFpEF, PAF, h/o DVT who presents with left flank pain found to have 7 mm ureteric stone s/p lithotripsy and left stent placement Acute on chronic HFpEF hold home bumex will start IV lasix monitor Is and Os change to low sodium diet Acute respiratory failure with hypoxia. O2 sat documented 89% on room air 05/24 CXR showing ? fluid, patient appears fluid overloaded this am will start diuresis as above Wean oxygen as tolerated Sepsis secondary to probable urinary source UA not overwhelmingly positive - no urine culture was obtained and unable to be added on likely due to instrumentation from procedure Lactic acid WNL. no severe features Initially treated with IV ceftriaxone, but changed to IV zosyn on 05/25 blood cultures pending Left ureteric stone s/p lithotripsy and stent placement management per urology Paroxysmal atrial fibrillation s/p CV 08/2020 Appears to be in sinus rhythm at this time Continue amiodarone Continue Coumadin Follow INR BERE- CPAP DVT prophylaxis - Coumadin Attending-Dr. Gill Requires ongoing inpatient for management of sepsis, IV antibiotics Quality Stroke Does the patient have a stroke diagnosis?: No VTE Prior VTE?: No VTE Risk Level:: Medical - moderate - high VTE Device Contraindication: N/A - Device Ordered VTE Drug Contraindication: N/A - Med Ordered
[2022-05-26] MEDS: Furosemide 40 MG/4 ML VIAL IVPUSH ×2 (10:49→18:11)
--- NOTE | 2022-05-26 14:23 | PM.UROPN ---
Subjective Subjective Date of Service: 05/26/22 Interval history: postop day 2 from stent placement Had postprocedure systemic inflammatory response The biotics change BP currently stable And pole stable Is improving Creatinine 1.4. WBC down from 12.5 continue with medical care Physical Exam Vital Signs: Vital Signs: Last Vital Signs Temp 97.7 F 05/26/22 12:35 Pulse 57 05/26/22 12:35 Resp 20 05/26/22 12:35 BP 104/59 L 05/26/22 12:35 Pulse Ox 94 05/26/22 12:35 O2 Del Method 05/26/22 12:35 O2 Flow Rate 3 05/26/22 12:35 Oxygen Flow Rate 3 05/25/22 18:10 BMI result Body Mass Index 45.2 Const: General: cooperative, healthy appearing, comfortable and no acute distress Orientation/consciousness: patient oriented x3 HEENT: Face and sinus: Yes normal facial exam Mouth: moist mucous membranes Neck: Neck: Yes normal visual inspection, Yes full ROM and Yes trachea midline Chest: Chest palpation & inspection: normal inspection of the chest Resp: Effort & Inspection: normal respiratory effort, able to speak in complete sentences and no respiratory distress GI: Inspection: Yes normal to inspection Back/Spine/Pelvis: Cervical Spine: normal cervical lordosis Thoracic/Lumbar Spine: thoracic and lumbar spine normal to inspection Skin: General skin exam: no rashes or lesions noted Neuro: General: patient oriented x3, tone normal and moves all extremities Extrem: General: Yes normal to inspection and Yes capillary refill normal Urology Results Labs CBC & Chem 7: 05/26/22 06:23 05/26/22 06:23 Labs: Laboratory Results - last 24 hr 05/25/22 05/25/22 05/25/22 16:10 16:11 16:11 WBC 8.9 RBC 4.01 L Hgb 12.2 Hct 37.1 MCV 92.5 MCH 30.4 MCHC 32.9 RDW 15.1 Plt Count 180 MPV 10.0 Absolute Nucleated RBC 0.000 Nucleated RBC % (auto) 0.0 PT INR Sodium Potassium Chloride Carbon Dioxide Anion Gap BUN Creatinine Estim Creat Clear Calc Estimated GFR POC Glucose Random Glucose Lactic Acid 1.3 Calcium Urine Color OTHER A Urine Appearance CLOUDY Urine pH 5.0 Ur Specific [place] 1.025 Urine Protein 2+ H Urine Glucose (UA) NEG Urine Ketones NEG Urine Blood 3+ H Urine Nitrite NEG Ur Leukocyte Esterase TRACE H Urine RBC TNTC H Urine WBC 5-9 H Ur Squamous Epith Cells 1+ Urine Bacteria TRACE Urine Mucus 1+ 05/25/22 05/26/22 05/26/22 20:02 06:23 06:23 WBC 6.5 RBC 3.72 L Hgb 11.2 L Hct 34.2 L MCV 91.9 MCH 30.1 MCHC 32.7 RDW 15.2 Plt Count 170 MPV 10.2 Absolute Nucleated RBC 0.000 Nucleated RBC % (auto) 0.0 PT INR Sodium 136 Potassium 3.9 Chloride 104 Carbon Dioxide 25 Anion Gap 11 L BUN 19 H Creatinine 1.44 H Estim Creat Clear Calc 51.3 Estimated GFR 37 POC Glucose 144 H Random Glucose 138 H Lactic Acid Calcium 8.2 L Urine Color Urine Appearance Urine pH Ur Specific [place] Urine Protein Urine Glucose (UA) Urine Ketones Urine Blood Urine Nitrite Ur Leukocyte Esterase Urine RBC Urine WBC Ur Squamous Epith Cells Urine Bacteria Urine Mucus 05/26/22 06:23 WBC RBC Hgb Hct MCV MCH MCHC RDW Plt Count MPV Absolute Nucleated RBC Nucleated RBC % (auto) PT 22.1 H INR 1.9 H Sodium Potassium Chloride Carbon Dioxide Anion Gap BUN Creatinine Estim Creat Clear Calc Estimated GFR POC Glucose Random Glucose Lactic Acid Calcium Urine Color Urine Appearance Urine pH Ur Specific [place] Urine Protein Urine Glucose (UA) Urine Ketones Urine Blood Urine Nitrite Ur Leukocyte Esterase Urine RBC Urine WBC Ur Squamous Epith Cells Urine Bacteria Urine Mucus Progress Note: A&P Assessment and plan (1) Kidney stone on left side: Status: Acute (2) SIRS (systemic inflammatory response syndrome): Status: Acute Plan continue medical therapy Time Spent With Patient Time: Total time spent is greater than 50% in coordination of care (as documented) at patient's floor/unit and/or counseling patient: Progress Note: Quality Stroke Does the patient have a stroke diagnosis?: No
[2022-05-26] MEDS: Warfarin Sodium 2.5 MG TABLET PO (18:11)
[2022-05-27] VITALS: BP 112/50; PULSE 57; RESP 18; TEMP 37.2; O2SAT 92
[2022-05-27 03:00] VITALS: BP 114/52; PULSE 57; RESP 18; TEMP 36.6; O2SAT 91
[2022-05-27] MEDS: Piperacillin Sodium/Tazobactam 4.5 GM in 0.9 % Sodium Chloride 100 ML IV ×2 (05:11→09:08)
[2022-05-27 07:35] VITALS: BP 103/61; PULSE 54; RESP 19; TEMP 36.8; O2SAT 94
[2022-05-27 07:39] LABS: Anion Gap 13 (12-20); Blood Urea Nitrogen 18 mg/dL (9-16); Calcium 8.6 mg/dL (8.4-10.2); Carbon Dioxide 32 mmol/L (22-29); Chloride 99 mmol/L (96-108); Estimated Glomerular Filt Rate 39; Glucose Random 168 mg/dL (60-115); Potassium 3.5 mmol/L (3.3-5.1); Sodium 140 mmol/L (135-145)
[2022-05-27 07:48] LABS: B Type Natriuretic Peptide 54 pg/mL (<100)
[2022-05-27] MEDS: Gabapentin 300 MG CAPSULE PO (08:59)
[2022-05-27] MEDS: Multivitamin TABLET 1 TAB PO (09:00)
[2022-05-27] MEDS: Cholecalciferol (Vitamin D3) 10 MCG TABLET PO (09:00)
[2022-05-27] MEDS: Ascorbic Acid 500 MG TABLET PO (09:00)
[2022-05-27] MEDS: Cyanocobalamin (Vitamin B-12) 1,000 MCG TABLET 1000 MCG PO (09:00)
[2022-05-27] MEDS: Furosemide 40 MG/4 ML VIAL IVPUSH (09:00)
[2022-05-27] MEDS: Amiodarone HCL 200 MG TABLET PO (09:00)
[2022-05-27 11:43] LABS: INTERNATIONAL NORM RATIO 1.7 (0.9-1.1); Prothrombin Time 19.9 SEC (10.0-13.1)
--- NOTE | 2022-05-27 12:15 | PM.DS ---
DS: Providers Provider Date of Service: 05/27/22 Date of admission: 05/24/22 18:14 Primary care physician: Dena Gore MD Consults: 05/24/22 19:16 Consult to Hospitalist Stat Consulting Provider: Hospitalist Reason For Exam: post procedure SIRS DS: Diagnosis Discharge Diagnosis (1) Kidney stone on left side: Status: Acute (2) SIRS (systemic inflammatory response syndrome): Status: Acute DS: Summary Hospital Course Hospital Course: Admit Friday evening Had SIRS response after stent placement Temperature resolved after 24 hours of antibiotics Discharged with antibiotics Status at Discharge Cognitive/behavioral status at discharge: stable Functional status at discharge: independent ambulation Overall status at discharge: patient is back to baseline Time Spent with Patient Time attestation: Total time spent providing and/or coordinating discharge services: Discharge coordination time: Less than 30 minutes Quality: Safe Use of Opioids Does Pt have an Active Cancer Diagnosis on the Problem List?: No Quality: Stroke Does the patient have a stroke diagnosis?: No Physical Exam Vital Signs: Vital Signs: Last Vital Signs Temp 98.3 F 05/27/22 07:35 Pulse 54 05/27/22 07:35 Resp 19 05/27/22 07:35 BP 103/61 05/27/22 07:35 Pulse Ox 94 05/27/22 07:35 O2 Del Method 05/27/22 07:35 O2 Flow Rate 2 05/27/22 07:35 Oxygen Flow Rate 3 05/26/22 18:00 BMI result Body Mass Index 45.2 Const: General: cooperative, healthy appearing, comfortable and no acute distress Orientation/consciousness: patient oriented x3 HEENT: Face and sinus: Yes normal facial exam Mouth: moist mucous membranes Neck: Neck: Yes normal visual inspection, Yes full ROM and Yes trachea midline Chest: Chest palpation & inspection: normal inspection of the chest Resp: Effort & Inspection: normal respiratory effort, able to speak in complete sentences and no respiratory distress GI: Inspection: Yes normal to inspection Back/Spine/Pelvis: Cervical Spine: normal cervical lordosis Thoracic/Lumbar Spine: thoracic and lumbar spine normal to inspection Skin: General skin exam: no rashes or lesions noted Neuro: General: patient oriented x3, tone normal and moves all extremities Extrem: General: Yes normal to inspection and Yes capillary refill normal DS: Data Data Completed and Pending Pending studies at discharge: Pending at discharge 05/24/22 18:08 Surgical [PTH] Routine Labs on day of discharge: Laboratory Results - last 24 hr 05/27/22 05/27/22 05/27/22 06:43 06:43 11:19 PT 19.9 H INR 1.7 H Sodium 140 Potassium 3.5 Chloride 99 Carbon Dioxide 32 H Anion Gap 13 BUN 18 H Creatinine 1.37 Estim Creat Clear Calc 54.0 Estimated GFR 39 Random Glucose 168 H Calcium 8.6 B-Natriuretic Peptide 54 Preliminary micro results at discharge 05/24/22 18:27 Blood Culture - Preliminary Blood - Venous No growth after 48 hours. 05/25/22 16:16 Blood Culture - Preliminary Blood - Venous No growth after 24 hours. 05/25/22 16:11 Blood Culture - Preliminary Blood - Venous No growth after [address] scan - abdomen: Radiologist's impression: ITS Impressions Abdomen/Pelvis CT 05/24/22 06:50 IMPRESSION: 7 mm left UVJ stone with associated mild left hydronephrosis, hydroureter, and perinephric stranding. Multiple foci of left renal cortical scarring, similar compared with 2 years prior. Additional findings, as above. Chest X-Ray 05/25/22 12:52 IMPRESSION: Mild prominence of pulmonary vasculature appears more prominent compared to the 2019 study. Mild congestion cannot be excluded. No focal infiltrate. Discharge Plan Discharge Patient Disposition: Home, Self-Care Discharge Diagnosis: distal ureteric stone Referrals: Julian Arguelles MD [Physician] - 1 Week Dena Gore MD [Primary Care Provider] - None Discharge Medications: New phenazopyridine [Pyridium] 100 mg tablet 100 mg PO TID PRN (Reason: spasm) 4 Days Qty: 12 0RF tramadol 50 mg tablet 50 mg PO Q6H PRN (Reason: pain (scale score 1-3)) Qty: 8 0RF tamsulosin 0.4 mg capsule 0.4 mg PO BEDTIME 14 Days Qty: 14 0RF cephalexin 500 mg capsule 500 mg PO BID 7 Days Qty: 14 0RF Continued warfarin 5 mg tablet 2.5 mg PO DAILY Qty: 100 3RF Protocol: Dose Management Condition: Friday (Week One) Dose/Route: 2.5 mg Instruction: 0.5 x 5 mg milliliters Condition: Friday Dose/Route: 2.5 mg Instruction: 0.5 x 5 mg milliliters Condition: Friday Dose/Route: 5 mg Instruction: 1 x 5 mg milliliter Condition: Friday Dose/Route: 2.5 mg Instruction: 0.5 x 5 mg milliliters Condition: Dose/Route: 2.5 mg Instruction: 0.5 x 5 mg milliliters Condition: Friday Dose/Route: 2.5 mg Instruction: 0.5 x 5 mg milliliters Condition: Friday Dose/Route: 2.5 mg Instruction: 0.5 x 5 mg milliliters Condition: Friday (Week Two) Dose/Route: 2.5 mg Instruction: 0.5 x 5 mg milliliters Condition: Friday Dose/Route: 2.5 mg Instruction: 0.5 x 5 mg milliliters Condition: Friday Dose/Route: 5 mg Instruction: 1 x 5 mg milliliter Condition: Friday Dose/Route: 2.5 mg Instruction: 0.5 x 5 mg milliliters Condition: Dose/Route: 2.5 mg Instruction: 0.5 x 5 mg milliliters Condition: Friday Dose/Route: 2.5 mg Instruction: 0.5 x 5 mg milliliters Condition: Friday Dose/Route: 2.5 mg Instruction: 0.5 x 5 mg milliliters Protocol Text: Adjustment Start Date: Friday05/13/22 INR Value: 3.4 INR Date: 05/13/22 Recheck Date: 05/27/22 Additional Instructions: RESUME WEEKLY [place] Rx Instructions: 2.5 MG DAILY amiodarone 200 mg tablet 200 mg PO DAILY 30 Days Qty: 30 3RF bumetanide 2 mg tablet 1 mg PO DAILY Qty: 90 1RF gabapentin 300 mg capsule 300 mg PO BID Qty: 60 6RF (DME) blood-glucose meter [OneTouch Ultra2 Meter] Kit See Rx Instructions .Route Qty: 1 0RF Rx Instructions: As directed (DME) OneTouch Ultra Test Strip See Rx Instructions .Route Qty: 100 4RF Rx Instructions: 1 qd multivitamin Tablet 1 tab PO DAILY ascorbate calcium (vitamin C) 500 mg tablet 500 mg PO DAILY mecobalamin (vitamin B12) 5,000 mcg lozenge 5,000 mcg PO DAILY Rx Instructions: allow to dissolve in mouth OR may chew lightly before swallowing cholecalciferol (vitamin D3) 10 mcg (400 unit) capsule 10 mcg PO DAILY Discharge Orders: Discharge Order (Routine); Ordered 05/24/22 Ordered By: Julian Arguelles Diet: Advance to usual diet Activity on Discharge: As tolerated Care Plan Goals: stones Health Concerns: stones Plan of Treatment: stones Assessment: stones Patient Instructions: Ureteroscopy (DC)
[2022-06-02 16:02] LABS: Stone Source LEFT URETERAL STONE
== END 2022-05-27 12:51 | disposition home or self-care (01) | DRG 659 ==
LOC: HO.ED 12:54 → HO.SSS 15:51 → HO.IMC 19:52
PROVIDERS: Internal Medicine; Physician Assistant Medical; Student in an Organized Health Care Education/Training Program; Admitting Provider Urology; Emergency Provider Emergency Medicine Emergency Medical Services; PCP Internal Medicine; Visit Provider Urology
PROC: 0T778DZ Dilation of Left Ureter with Intraluminal Device, Via Natural or Artificial Opening Endoscopic (ICD-10-PCS; principal; 2022-05-24 16:30)
DX: N13.2 Hydronephrosis with renal and ureteral calculous obstruction (principal); I50.33 Acute on chronic diastolic (congestive) heart failure; J96.01 Acute respiratory failure with hypoxia; I13.0 Hypertensive heart and chronic kidney disease with heart failure and stage 1 through stage 4 chronic kidney disease, or unspecified chronic kidney disease; Z68.42 Body mass index [BMI] 45.0-49.9, adult; R65.10 Systemic inflammatory response syndrome (SIRS) of non-infectious origin without acute organ dysfunction; N18.30 Chronic kidney disease, stage 3 unspecified; Z86.718 Personal history of other venous thrombosis and embolism; E66.01 Morbid (severe) obesity due to excess calories; I48.0 Paroxysmal atrial fibrillation; E78.5 Hyperlipidemia, unspecified; G47.33 Obstructive sleep apnea (adult) (pediatric); Z20.822 Contact with and (suspected) exposure to COVID-19; Z87.442 Personal history of urinary calculi; Z88.2 Allergy status to sulfonamides; Z88.5 Allergy status to narcotic agent; Z79.01 Long term (current) use of anticoagulants; Z79.899 Other long term (current) drug therapy
CPT/HCPCS: 36415; 71045; 74176; 80048; 80051; 80053; 81001; 82248; 82365; 82947; 83605; 83880; 85025; 85027; 85610; 85730; 87040; 87086; 87635; 88300; 94640; 96361; 96374; 96375; 96376; 99284; C1758; C1769; C2617; J0131; J0696; J1170; J1885; J1940; J1956; J2270; J2405; J2543; J3010; Q9967

== ENCOUNTER → 2022-05-28 11:43 | Outpatient (BNVA) | payer MEDICARE, SELFPAY | PROVIDERS: PCP Internal Medicine; Visit Provider Internal Medicine | DX: I48.0 Paroxysmal atrial fibrillation (principal); Z51.81 Encounter for therapeutic drug level monitoring; Z79.01 Long term (current) use of anticoagulants | CPT/HCPCS: Q3014 ==

== ENCOUNTER 2022-05-31 10:33 | Outpatient (REF) | payer MEDICARE, SELFPAY ==
[2022-05-31 12:00] LABS: MANUAL DIFF FLAG NO
[2022-05-31 12:07] LABS: Basophils Absolute Auto 0.1 X10*3/uL (0.0-0.2); Basophils Percent Auto 0.7 % (0-2); Eosinophils Absolute Auto 0.4 X10*3/uL (0.0-0.4); Eosinophils Percent Auto 5.6 % (0-4); Hematocrit 37.9 % (37.0-47.0); Hemoglobin 12.5 g/dl (12.0-16.0); Imm Gran Abs Auto 0.05 X10*3/uL (0.00-0.03); Imm Gran Pct Auto 0.7 % (0.0-0.4); Lymphocytes Absolute Auto 1.9 X10*3/uL (1.2-4.9); Mean Corpuscular Hemoglobin 30.1 pg (27.0-33.0); Mean Corpuscular Volume 91.3 fL (80.0-98.0); Mean Platelet Volume 10.1 fL (9.4-12.3); Monocytes Absolute Auto 0.6 X10*3/uL (0.1-1.2); Monocytes Percent Auto 9.4 % (2-11); Neutrophils Absolute Auto 3.8 x10*3/uL (2.0-8.3); Neutrophils Percent Auto 55.6 % (45-73); Platelet Count 237 X10*3/uL (160-400); Red Blood Count 4.15 X10*6/uL (4.20-5.50); Red Cell Distribution Width 14.7 % (11.0-16.0); White Blood Count 6.8 X10*3/uL (4.8-10.8)
[2022-05-31 12:23] LABS: Iron 55 mcg/dL (30-160); Percent Iron Saturation 20 % (15-50); Total Iron Binding Capacity 273 mcg/dL (228-428); Unsaturated Iron Binding 218 ug/dL
[2022-05-31 12:30] LABS: B Type Natriuretic Peptide 93 pg/mL (<100)
== END 2022-05-31 10:34 | disposition home or self-care (01) ==
LOC: HO.HMGCLDS 10:33
PROVIDERS: PCP Internal Medicine; Visit Provider Internal Medicine
DX: D64.9 Anemia, unspecified (principal); R79.89 Other specified abnormal findings of blood chemistry
CPT/HCPCS: 36415; 83540; 83880; 85025; 85610; 99211

== ENCOUNTER → 2022-06-04 10:58 | Outpatient (BNVA) | payer MEDICARE, SELFPAY | PROVIDERS: PCP Internal Medicine; Visit Provider Urology | DX: Z48.816 Encounter for surgical aftercare following surgery on the genitourinary system (principal) | CPT/HCPCS: 52310; 99212 ==

== ENCOUNTER → 2022-06-06 13:22 | Outpatient (BNVA) | payer MEDICARE, SELFPAY | PROVIDERS: PCP Internal Medicine; Visit Provider Internal Medicine | DX: I48.0 Paroxysmal atrial fibrillation (principal); Z51.81 Encounter for therapeutic drug level monitoring; Z79.01 Long term (current) use of anticoagulants | CPT/HCPCS: 85610; 99211 ==

== ENCOUNTER 2022-06-19 10:43 | Outpatient (REF) | payer MEDICARE, SELFPAY ==
--- NOTE | ~2022-06-19 | MM_ITS ---
EXAMINATION: MM SCREENING DIGITAL BREAST TOMOSYNTHESIS, BILATERAL CLINICAL INFORMATION: Screening. Asymptomatic. The lifetime risk of breast cancer based on the Tyrer-Cuzick Model is 6%. COMPARISON: Mammography: 05/03/2021, 04/26/2021 (new baseline); targeted right breast ultrasound 05/03/2021. TECHNIQUE: Digital breast tomosynthesis is performed in both the craniocaudal and mediolateral oblique views along with computer-aided detection (CAD). Synthesized 2D images are generated from the tomosynthesis. FINDINGS: There are scattered areas of fibroglandular density (ACR BI-RADS breast composition Category b). There are no significant masses, abnormal calcifications, or other abnormalities. Parenchymal pattern is similar to prior studies. No developing density. No significant changes. MM/MM tomosynthesis screening BI IMPRESSION: No mammographic evidence of malignancy. ASSESSMENT: BI-RADS 2: Benign RECOMMENDATION: Routine annual mammography screening. This patient's information was entered into a reminder system with a target due date for their next mammogram.
== END 2022-06-19 10:44 | disposition home or self-care (01) ==
LOC: HO.MAMMO 10:43
PROVIDERS: PCP Internal Medicine; Visit Provider Internal Medicine
DX: Z12.31 Encounter for screening mammogram for malignant neoplasm of breast (principal)
CPT/HCPCS: 77063; 77067

== ENCOUNTER → 2022-06-20 11:38 | Outpatient (BNVA) | payer MEDICARE, SELFPAY | PROVIDERS: PCP Internal Medicine; Visit Provider Internal Medicine | DX: I48.0 Paroxysmal atrial fibrillation (principal); Z79.01 Long term (current) use of anticoagulants; Z51.81 Encounter for therapeutic drug level monitoring | CPT/HCPCS: 85610; 99211 ==

== ENCOUNTER 2022-06-23 10:26 | Emergency (ER) | payer MEDICARE, SELFPAY ==
--- NOTE | ~2022-06-23 | XR_ITS ---
EXAMINATION: XR ANKLE-RIGHT XR FOOT-RIGHT CLINICAL INFORMATION: Right foot injury. COMPARISON: None TECHNIQUE: 2 views of the right ankle and 3 views of the right foot were obtained. FINDINGS: Right ankle: Periarticular soft tissue swelling is present, most pronounced over the lateral malleolus. The bony alignments are intact. The cortices are intact. Articular margins, joint space appear unremarkable. Mild diffuse osteopenia. Right foot: Small posterior plantar calcaneal spur. The bony alignments are intact. The cortices are intact. Articular margins, joint space appear unremarkable. Mild diffuse osteopenia is noted. XR/XR foot RT 2V IMPRESSION: 1. Mild diffuse osteopenia. 2. Nonspecific periarticular soft tissue swelling (most pronounced over the lateral malleolus). 3. Small posterior plantar calcaneal spur. 4. No radiographic evidence of any acute osseous or articular abnormalities.
--- NOTE | ~2022-06-23 | XR_ITS ---
EXAMINATION: XR ANKLE-RIGHT XR FOOT-RIGHT CLINICAL INFORMATION: Right foot injury. COMPARISON: None TECHNIQUE: 2 views of the right ankle and 3 views of the right foot were obtained. FINDINGS: Right ankle: Periarticular soft tissue swelling is present, most pronounced over the lateral malleolus. The bony alignments are intact. The cortices are intact. Articular margins, joint space appear unremarkable. Mild diffuse osteopenia. Right foot: Small posterior plantar calcaneal spur. The bony alignments are intact. The cortices are intact. Articular margins, joint space appear unremarkable. Mild diffuse osteopenia is noted. XR/XR ankle RT 2V IMPRESSION: 1. Mild diffuse osteopenia. 2. Nonspecific periarticular soft tissue swelling (most pronounced over the lateral malleolus). 3. Small posterior plantar calcaneal spur. 4. No radiographic evidence of any acute osseous or articular abnormalities.
[2022-06-23 10:56] VITALS: BP 143/60; PULSE 60; RESP 18; TEMP 37; O2SAT 96; BMI 41.4
--- NOTE | 2022-06-23 11:15 | ED.GENADULT ---
HPI - General Adult General Chief complaint: Extremity Injury, Lower Stated complaint: R foot inj Time Seen by Provider: 06/23/22 11:15 Source: patient Mode of arrival: ambulatory Limitations: no limitations History of Present Illness HPI narrative: Patient is a 66 year old female presenting to the emergency department today with right foot pain. Patient states that she hit the top of her foot on a cement slab and it now hurts to walk on. Patient denies any dizziness, lightheadedness, abdominal pain, nausea, vomiting, fever, chills, blurry vision, double vision, loss of vision, chest pain, difficulty breathing, shortness of breath, back pain, night sweats, pain with urination, increased urinary frequency, increased urinary urgency, blood in her urine or stool, syncope or a near syncopal episode, bowel incontinence, bladder incontinence, bowel retention, bladder retention, or any other complaints at this time. Onset (ago): hour(s) Location: right and lower extremity Radiation: non-radiation Severity: mild Severity scale (1-10): 1 Quality: dull Pain Consistency: constant Relieving factors: none Exacerbating factors: movement Associated symptoms: denies other symptoms Treatments prior to arrival: none Related Data Home Medications Medication Instructions Recorded Confirmed ascorbate calcium (vitamin C) 500 500 mg PO DAILY 04/06/21 05/28/22 mg tablet cholecalciferol (vitamin D3) 10 10 mcg PO DAILY 04/06/21 05/28/22 mcg (400 unit) capsule mecobalamin (vitamin B12) 5,000 5,000 mcg PO DAILY 04/06/21 05/28/22 mcg lozenge multivitamin 1 tab PO DAILY 04/06/21 05/28/22 Previous Rx's Medication Instructions Recorded warfarin 5 mg tablet 2.5 mg PO DAILY #100 tabs 06/07/21 amiodarone 200 mg tablet 200 mg PO DAILY 30 days #30 tabs 11/19/21 bumetanide 2 mg tablet 1 mg PO DAILY #90 tabs 11/21/21 gabapentin 300 mg capsule 300 mg PO BID #60 caps 05/13/22 tamsulosin 0.4 mg capsule 0.4 mg PO BEDTIME 14 days #14 caps 05/24/22 blood sugar diagnostic (OneTouch #100 ea 06/04/22 Ultra Test strips) blood-glucose meter (OneTouch #1 ea 06/04/22 Ultra2 Meter kit) lancets 33 gauge (KendrickTouch Delica #100 ea 06/04/22 Lancets) pyridoxine (vitamin B6) 100 mg 100 mg PO DAILY 90 days #90 tabs 06/20/22 tablet Allergies Allergy/AdvReac Type Severity Reaction Status Date / Time Sulfa (Sulfonamide Allergy Unknown RASH Verified 06/23/22 10:56 Antibiotics) [SULFA(SULFONAMIDE ANTIBIOTICS)] codeine AdvReac Vomiting Verified 06/23/22 10:56 oxycodone AdvReac Gastrointestinal Verified 06/23/22 10:56 Upset Review of Systems Constitutional: Constitutional: Reports no additional constitutional complaints, Denies chills, Denies fever(s) and Denies night sweats Eyes: Eyes: Reports no additional eye complaints, Denies blurry vision, Denies change in vision, Denies diplopia, Denies eye discharge, Denies loss of vision and Denies eye pain ENT: Denies dizziness Cardiovascular: Cardiovascular: Reports no additional cardiovascular complaints, Denies chest pain, Denies lightheadedness, Denies Loss of Consciousness and Denies dyspnea Respiratory: Respiratory: Reports no additional respiratory complaints and Denies dyspnea Gastrointestinal: Gastrointestinal: Reports no additional gastrointestinal complaints, Denies abdominal pain, Denies melena, Denies hematochezia, Denies change in bowel habits and Denies change in stool character Genitourinary: Genitourinary: Denies hematuria, Denies urinary frequency, Denies dysuria, Denies urinary incontinence, Denies urinary hesitancy and Denies urinary urgency Musculoskeletal: Musculoskeletal: Reports no additional musculoskeletal complaints, Denies numbness and Denies tingling Comments: right foot pain Neurologic: Denies dizziness, Denies loss of vision, Denies numbness and Denies tingling Psychiatric: Psychiatric: Reports no additional psychiatric complaints Endocrine: Endocrine: Reports no additional endocrine complaints Hematologic/Lymphatic: Hematologic/Lymphatic: Reports no additional hematologic/lymphatic complaints Allergic/Immunologic: Allergic/Immunologic: Reports no additional allergic/immunologic complaints PMFSH Past Medical History Attestation statement: The following information was validated with the patient. Source: old records reviewed Medical History Anemia Ankle pain, right CKD (chronic kidney disease) stage 3, GFR 30-59 ml/min Diastolic heart failure Diverticulitis DVT (deep venous thrombosis) Elevated brain natriuretic peptide (BNP) level Hip pain History of deep vein thrombophlebitis of lower extremity Hyperkalemia Hyperlipidemia Iliotibial band syndrome Knee pain Lower back pain Lumbosacral radiculopathy due to osteoarthritis of spine Morbid obesity Obesity BERE (obstructive sleep apnea) Osteoarthritis of right ankle and foot Paroxysmal A-fib Peripheral vascular complication of surgical procedure Peripheral vascular disease Positive ALVIN (antinuclear antibody) Postmenopausal Vaccine refused by patient Venous insufficiency of both lower extremities Surgical History H/O hysterectomy for benign disease History of cardiac cath Hx of vascular surgery Family History Family History Father Emphysema, unspecified Mother No problems noted. Brother Atrial fibrillation Sister Atrial fibrillation Social History Social History Household Members: None Housing: Apartment Do you presently have visiting nurse or other home services: No Alcohol intake: never Patient Tobacco Use Status: Never used Tobacco e-Cigarette/Vaping Use: Never Used Advance Directives: No Advance Directives Information Provided: Yes service: No Current occupational status: disabled Current occupation: [employer] Cognitive needs: No Hearing needs: No Vision needs: No Physical Exam ED Vital Signs: Vital Signs - 24 hr 06/23/22 10:56 Temperature 98.6 F Pulse Rate 60 Respiratory Rate 18 Blood Pressure 143/60 H Pulse Oximetry 96 Oxygen Delivery Method Room Air BMI result Body Mass Index 41.4 Const General: cooperative, no acute distress, alert and awake Nutritional Appearance: well nourished Orientation/consciousness: patient oriented x3 Limitations: no limitations [facility] Head: Yes normal to inspection and Yes atraumatic Ears: hearing grossly normal bilaterally and external ears normal General nose exam: Normal external nose present, no nasal discharge noted and no epistaxis Face and sinus: Yes normal facial exam, No abrasion and No laceration Mouth: Normal oral and palatal mucosa present, no drooling and no muffled voice Eyes General: appearance normal, both eyes and all related structures Periorbital: periorbital findings normal Eyelids: Yes eyelids normal Conjunctivae: conjunctivae normal Pupils: Equal, round and reactive pupils present EOM: EOMs intact bilaterally Neck Neck: Yes normal visual inspection, Yes full ROM and Yes no lymphadenopathy Chest Chest palpation & inspection: normal inspection of the chest Resp Effort & Inspection: normal respiratory effort and able to speak in complete sentences Auscultation: clear to auscultation bilaterally Cardio Rate: regular rate Rhythm: regular rhythm GI Inspection: Yes normal to inspection Neuro General: patient oriented x3 and moves all extremities Cranial nerves: Yes Equal, round and reactive pupils present Cognition (Neuro): normal cognition Motor exam (neuro): 5/5 motor strength present throughout Sensory Exam: Normal double simultaneous stimulation for sensation Coordination: [id number] test normal Extrem General: Yes normal to inspection, Yes full ROM and Yes capillary refill normal Psych Appearance: grossly normal Mental Status: mental status grossly normal Affect: normal affect Attitude: cooperative Thought process: Normal thought process present Thought content: Normal thought content present Insight: Good insight present (Psych) Procedures Orthopedic Splinting/Casting Injury #1: Side: right Lower Extremity Injury Location: foot Lower Extremity Immobilizer: boot orthosis Medical Decision Making [facility] Narrative Medical decision making narrative: Patient is a 66 year old female presenting to the emergency department today with right foot pain. Patient's physical exam was unremarkable. Patient's right foot and right ankle x-rays showed no acute process. I explained my physical exam findings as well as all test results to the patient. I answered all questions asked by the patient. Patient's right foot was placed in a boot, without incident. I stressed the importance of the patient taking her medication as prescribed. I stressed the importance of the patient following up with her primary care provider. I stressed the importance of the patient returning to the emergency department immediately if her symptoms were to worsen or if she were to develop any dizziness, shortness of breath, difficulty breathing, chest pain, blurry vision, loss of vision, nausea, vomiting, abdominal pain, fever, chills, back pain, or any other complaints. Patient verbalized agreement and understanding with this treatment plan and discharge. Differential Diagnosis Differential Diagnosis: foot pain Medical Records Medical records reviewed: Yes I reviewed the patient's medical records. Imaging Data Right foot and right ankle x-ray: Attestation: I personally reviewed and interpreted this imaging study as follows: My impression: No acute process. Radiologist's impression: EXAMINATION: XR ANKLE-RIGHT XR FOOT-RIGHT CLINICAL INFORMATION: Right foot injury. COMPARISON: None? TECHNIQUE: 2 views of the right ankle and 3 views of the right foot were obtained. ? FINDINGS: Right ankle: Periarticular soft tissue swelling is present, most pronounced over the lateral malleolus. The bony alignments are intact. The cortices are intact. Articular margins, joint space appear unremarkable. Mild diffuse osteopenia. Right foot: Small posterior plantar calcaneal spur. The bony alignments are intact. The cortices are intact. Articular margins, joint space appear unremarkable. Mild diffuse osteopenia is noted.? XR/XR foot RT 2V IMPRESSION: ? 1. Mild diffuse osteopenia. 2. Nonspecific periarticular soft tissue swelling (most pronounced over the lateral malleolus). 3. Small posterior plantar calcaneal spur. 4. No radiographic evidence of any acute osseous or articular abnormalities. Dictated By: Zehra Starr MD Signed By: Electronically signed by Zehra Starr MD 06/23/22 0527 Discharge Plan Discharge Clinical Impression: Acute foot pain Patient Disposition: Home, Self-Care Instructions: Foot Contusion (ED) Additional Instructions: Follow up with your primary care provider and an orthopedic provider. Return to the emergency department immediately if your symptoms worsen or if you develop any dizziness, shortness of breath, difficulty breathing, chest pain, blurry vision, loss of vision, nausea, vomiting, abdominal pain, fever, chills, back pain, or any other complaints. Prescriptions: No Action warfarin 5 mg tablet 2.5 mg PO DAILY Qty: 100 3RF Protocol: Dose Management Condition: Friday (Week One) Dose/Route: 2.5 mg Instruction: 0.5 x 5 mg tablets Condition: Friday Dose/Route: 2.5 mg Instruction: 0.5 x 5 mg tablets Condition: Friday Dose/Route: 2.5 mg Instruction: 0.5 x 5 mg tablets Condition: Friday Dose/Route: 2.5 mg Instruction: 0.5 x 5 mg tablets Condition: Dose/Route: 2.5 mg Instruction: 0.5 x 5 mg tablets Condition: Friday Dose/Route: 5 mg Instruction: 1 x 5 mg tablet Condition: Friday Dose/Route: 2.5 mg Instruction: 0.5 x 5 mg tablets Condition: Friday (Week Two) Dose/Route: 2.5 mg Instruction: 0.5 x 5 mg tablets Condition: Friday Dose/Route: 2.5 mg Instruction: 0.5 x 5 mg tablets Condition: Friday Dose/Route: 2.5 mg Instruction: 0.5 x 5 mg tablets Condition: Friday Dose/Route: 2.5 mg Instruction: 0.5 x 5 mg tablets Condition: Dose/Route: 2.5 mg Instruction: 0.5 x 5 mg tablets Condition: Friday Dose/Route: 5 mg Instruction: 1 x 5 mg tablet Condition: Friday Dose/Route: 2.5 mg Instruction: 0.5 x 5 mg tablets Protocol Text: Adjustment Start Date: 06/20/22 INR Value: 2.9 INR Date: 06/20/22 Recheck Date: 07/18/22 Additional Instructions: cont reg dosing call with any medication changes Rx Instructions: 2.5 MG DAILY amiodarone 200 mg tablet 200 mg PO DAILY 30 Days Qty: 30 3RF bumetanide 2 mg tablet 1 mg PO DAILY Qty: 90 1RF gabapentin 300 mg capsule 300 mg PO BID Qty: 60 6RF (DME) blood-glucose meter [OneTouch Ultra2 Meter] Kit See Rx Instructions .Route Qty: 1 0RF Rx Instructions: As directed (DME) lancets [OneTouch Delica Lancets] [address] [facility] [place] Rx Instructions .Route Qty: 100 3RF Rx Instructions: test blood sugar once a day (DME) OneTouch Ultra Test Strip See Rx Instructions .Route Qty: 100 4RF Rx Instructions: 1 qd tamsulosin 0.4 mg capsule 0.4 mg PO BEDTIME 14 Days Qty: 14 0RF multivitamin Tablet 1 tab PO DAILY ascorbate calcium (vitamin C) 500 mg tablet 500 mg PO DAILY mecobalamin (vitamin B12) 5,000 mcg lozenge 5,000 mcg PO DAILY Rx Instructions: allow to dissolve in mouth OR may chew lightly before swallowing cholecalciferol (vitamin D3) 10 mcg (400 unit) capsule 10 mcg PO DAILY pyridoxine (vitamin B6) 100 mg tablet 100 mg PO DAILY 90 Days Qty: 90 1RF [place] [facility] [place] [facility] [facility] [place] Group] Annalee De La Torre MD [Primary Care Provider] - Interventions: ED Discharge Assessment Last Done: 06/23/22 12:33 Discharge Date/Time: 06/23/22 12:35 Print Language: Divehi
== END 2022-06-23 12:35 | disposition home or self-care (01) ==
PROVIDERS: Emergency Provider Student in an Organized Health Care Education/Training Program; PCP Internal Medicine
DX: S99.911A Unspecified injury of right ankle, initial encounter (principal); M79.671 Pain in right foot; X58.XXXA Exposure to other specified factors, initial encounter; Y93.9 Activity, unspecified; Y92.9 Unspecified place or not applicable; Y99.9 Unspecified external cause status; Z79.899 Other long term (current) drug therapy
CPT/HCPCS: 29515; 73600; 73620; 99283

== ENCOUNTER → 2022-07-08 13:00 | Outpatient (BNVA) | payer MEDICARE, SELFPAY | PROVIDERS: PCP Internal Medicine; Visit Provider Physician Assistant | DX: S93.401A Sprain of unspecified ligament of right ankle, initial encounter (principal); W22.8XXA Striking against or struck by other objects, initial encounter; Y93.9 Activity, unspecified; Y92.9 Unspecified place or not applicable; Y99.9 Unspecified external cause status | CPT/HCPCS: 99212 ==

== ENCOUNTER → 2022-07-18 11:25 | Outpatient (BNVA) | payer MEDICARE, SELFPAY | PROVIDERS: PCP Internal Medicine; Visit Provider Internal Medicine | DX: I48.0 Paroxysmal atrial fibrillation (principal); Z79.01 Long term (current) use of anticoagulants; Z51.81 Encounter for therapeutic drug level monitoring | CPT/HCPCS: 85610; 99211 ==

== ENCOUNTER 2022-07-22 10:58 | Outpatient (REF) | payer MEDICARE, SELFPAY ==
--- NOTE | ~2022-07-22 | US_ITS ---
EXAMINATION: US RETROPERITONEAL LIMITED (RENAL ONLY) CLINICAL INFORMATION: Calculus of kidney. COMPARISON: CT abdomen and pelvis 05/24/2022. TECHNIQUE: Real-time imaging of the kidneys. FINDINGS: RIGHT KIDNEY: 13.4 x 4.7 x 6.3 cm (SAG x AP x TRV). The kidney is normal in size, contour, and echogenicity. Renal cortical thickness is normal. No calculi or focal parenchymal lesions. No hydronephrosis. LEFT KIDNEY: 9.2 x 4.3 x 5.2 cm (SAG x AP x TRV). The kidney is smaller than the right. There is a left upper pole cortical thinning or scarring. No calculi or focal parenchymal lesions. No hydronephrosis. Previously identified left hydronephrosis May 2022 has resolved. US/US renal BI IMPRESSION: Small left kidney with upper pole cortical thinning or scarring. No renal stone. No hydronephrosis..
[2022-07-22 14:27] LABS: Estimated Average Glucose 131 mg/dL; Hemoglobin A1c % 6.2 %
[2022-07-22 14:30] LABS: Alanine Aminotransferase 20 U/L (0-31); Albumin Level 3.7 g/dL (3.5-5.0); Alkaline Phosphatase 116 U/L (39-117); Anion Gap 12 (12-20); Aspartate Amino Transferase 18 U/L (5-31); Bilirubin Total 0.7 mg/dL (0.0-1.0); Blood Urea Nitrogen 20 mg/dL (9-16); Calcium 9.1 mg/dL (8.4-10.2); Carbon Dioxide 30 mmol/L (22-29); Chloride 103 mmol/L (96-108); Cholesterol 193 mg/dL; Estimated Glomerular Filt Rate 50; Glucose Fasting 115 mg/dL (60-99); HDL Cholesterol 46 mg/dL; LDL Cholesterol Calculated 121 mg/dl; Potassium 4.3 mmol/L (3.3-5.1); Sodium 141 mmol/L (135-145); Total Protein 6.6 g/dL (6.5-8.0); Triglycerides 130 mg/dL
[2022-07-22 14:40] LABS: Creatinine Urine 205.54 mg/dL; Microalbum/Creatinine Ratio Ur 3.8 ug/mg cr
== END 2022-07-22 10:59 | disposition home or self-care (01) ==
LOC: HO.HMGCX 10:58
PROVIDERS: Absent Provider Internal Medicine Nephrology; PCP Internal Medicine; Referring Provider Internal Medicine; Visit Provider Urology
DX: N18.32 Chronic kidney disease, stage 3b (principal)
CPT/HCPCS: 36415; 76775; 80053; 80061; 82043; 83036

== ENCOUNTER → 2022-08-01 11:12 | Outpatient (BNVA) | payer MEDICARE, SELFPAY | PROVIDERS: PCP Internal Medicine; Visit Provider Internal Medicine | DX: I48.0 Paroxysmal atrial fibrillation (principal); Z79.01 Long term (current) use of anticoagulants; Z51.81 Encounter for therapeutic drug level monitoring | CPT/HCPCS: 85610; 99211 ==

== ENCOUNTER → 2022-09-05 13:31 | Outpatient (BNVA) | payer MEDICARE, SELFPAY | PROVIDERS: PCP Internal Medicine; Visit Provider Internal Medicine | DX: I48.0 Paroxysmal atrial fibrillation (principal); Z79.01 Long term (current) use of anticoagulants; Z51.81 Encounter for therapeutic drug level monitoring | CPT/HCPCS: 85610; 99211 ==

== ENCOUNTER → 2022-09-19 11:00 | Outpatient (BNVA) | payer MEDICARE, SELFPAY | PROVIDERS: PCP Internal Medicine; Visit Provider Internal Medicine | DX: I48.0 Paroxysmal atrial fibrillation (principal); Z79.01 Long term (current) use of anticoagulants; Z51.81 Encounter for therapeutic drug level monitoring | CPT/HCPCS: 85610; 99211 ==

== ENCOUNTER 2022-09-20 11:54 | Outpatient (REF) | payer MEDICARE, SELFPAY ==
--- NOTE | ~2022-09-20 | XR_ITS ---
EXAMINATION: XR CHEST CLINICAL INFORMATION: Shortness of breath COMPARISON: Previous chest x-ray most recent May 2022 TECHNIQUE: 2 views of the chest were obtained. FINDINGS: The cardiac and mediastinal contours are stable. The lungs are clear. There is no pleural effusion or pneumothorax. There are degenerative changes of the spine. XR/XR chest 2V IMPRESSION: No evidence for acute disease in the chest.
[2022-09-20 13:53] LABS: MANUAL DIFF FLAG NO
[2022-09-20 14:09] LABS: Basophils Absolute Auto 0.1 X10*3/uL (0.0-0.2); Basophils Percent Auto 0.8 % (0-2); Eosinophils Absolute Auto 0.2 X10*3/uL (0.0-0.4); Eosinophils Percent Auto 3.7 % (0-4); Hematocrit 44.5 % (37.0-47.0); Hemoglobin 14.8 g/dl (12.0-16.0); Imm Gran Abs Auto 0.01 X10*3/uL (0.00-0.03); Imm Gran Pct Auto 0.2 % (0.0-0.4); Lymphocytes Absolute Auto 2.2 X10*3/uL (1.2-4.9); Lymphocytes Percent Auto 36.5 % (20-40); Mean Corpuscular HGB Conc 33.3 g/dl (31.0-35.0); Mean Corpuscular Hemoglobin 30.3 pg (27.0-33.0); Mean Platelet Volume 10.6 fL (9.4-12.3); Monocytes Absolute Auto 0.5 X10*3/uL (0.1-1.2); Neutrophils Absolute Auto 2.9 x10*3/uL (2.0-8.3); Neutrophils Percent Auto 49.8 % (45-73); Platelet Count 243 X10*3/uL (160-400); Red Blood Count 4.89 X10*6/uL (4.20-5.50); Red Cell Distribution Width 14.2 % (11.0-16.0); White Blood Count 5.9 X10*3/uL (4.8-10.8)
[2022-09-20 14:22] LABS: Anion Gap 14 (12-20); Blood Urea Nitrogen 27 mg/dL (9-16); Calcium 9.4 mg/dL (8.4-10.2); Carbon Dioxide 28 mmol/L (22-29); Chloride 105 mmol/L (96-108); Estimated Glomerular Filt Rate 48; Glucose Random 99 mg/dL (60-115); Potassium 4.2 mmol/L (3.3-5.1); Sodium 143 mmol/L (135-145)
[2022-09-20 14:28] LABS: B Type Natriuretic Peptide 38 pg/mL (<100)
== END 2022-09-20 11:55 | disposition home or self-care (01) ==
LOC: HO.HMGCX 11:54
PROVIDERS: PCP Internal Medicine; Visit Provider Internal Medicine
DX: N18.30 Chronic kidney disease, stage 3 unspecified (principal); R06.02 Shortness of breath; D64.9 Anemia, unspecified
CPT/HCPCS: 36415; 71046; 80048; 83880; 85025

== ENCOUNTER → 2022-09-27 10:38 | Outpatient (BNVA) | payer MEDICARE, SELFPAY | PROVIDERS: PCP Internal Medicine; Visit Provider Urology | DX: N20.0 Calculus of kidney (principal) | CPT/HCPCS: 99212 ==

== ENCOUNTER → 2022-10-03 11:24 | Outpatient (BNVA) | payer MEDICARE, SELFPAY | PROVIDERS: PCP Internal Medicine; Visit Provider Internal Medicine | DX: I48.0 Paroxysmal atrial fibrillation (principal); Z79.01 Long term (current) use of anticoagulants; Z51.81 Encounter for therapeutic drug level monitoring | CPT/HCPCS: 85610; 99211 ==

== ENCOUNTER 2022-10-04 15:19 | Outpatient (REF) | payer MEDICARE, SELFPAY | END 2022-10-04 15:20 | disposition home or self-care (01) | LOC: HO.LAB 15:19 | PROVIDERS: Visit Provider Nurse Practitioner Family | DX: G47.10 Hypersomnia, unspecified (principal); R53.83 Other fatigue | CPT/HCPCS: 36415; 84443; 99212 ==

== ENCOUNTER → 2022-10-24 11:07 | Outpatient (BNVA) | payer MEDICARE, SELFPAY | PROVIDERS: PCP Internal Medicine; Visit Provider Internal Medicine | DX: I48.0 Paroxysmal atrial fibrillation (principal); Z79.01 Long term (current) use of anticoagulants; Z51.81 Encounter for therapeutic drug level monitoring | CPT/HCPCS: 85610; 99211 ==

== ENCOUNTER 2022-10-28 10:00 | Outpatient (RCR) | payer MEDICARE, SELFPAY ==
--- NOTE | 2022-10-02 11:05 | MHC.PT.EP ---
[facility] [place] [facility] [place] [facility] [place] Office [address] Gay Trejo [address] [phone] F: [phone] F: [phone] F: [phone] F: [phone] Physical Therapy Plan of Care Date of Evaluation: Date of Surgery: n/a Diagnosis: sprain of R ankle Assessment: Patient is a 67 year old female presenting to PT with complaints of pain in her R ankle. Pt reports onset of pain began 2021 due to hitting her ankle on cement. She presents today with impairments in pain, ankle strength, ROM, gait mechanics. 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 Clinical presentation today is most consistent with signs and sx associated with R ankle sprain and pt will benefit from skilled PT to address the following problems and impairments noted upon evaluation: pain, ROM, ankle strength, gait mechanics. 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 The prescribed treatment plan of care is medically necessary. Co-morbidities of hx DVT, afib, heart failure were identified and taken into considerations of plan of care. Pt was educated on HEP, role of PT, prognosis, POC. Frequency and Duration: The patient will be seen 2 x week x 4 weeks Short Term Goals: Pt will demonstrate symmetrical ankle ROM with min to no pain in 2 weeks. Pt will demonstrate 5/5 ankle strength in all directions in 2 weeks. Pt will demonstrate improved heel strike with gait in 2 weeks. Fci Goals: Pt will demonstrate improved LEFI score by 9 points in 4 weeks for improved functional mobility. Pt will demonstrate ability to negotiate stairs with min to no pain in 4 weeks for improved access to her home. Pt will demonstrate ability to complete ADLs including driving with min to no pain in 4 weeks for return to PLOF. Treatment Plan: Modalities to reduce pain, spasms and effusion. Manual therapy to restore motion and function. Therapeutic exercise to improve strength and flexibility. Neuromuscular re-education for posture and balance. Therapeutic activities to return to functional activities of daily living. Electronically signed by: Dai Hadley PT, DPT, ATC Please sign and return to therapist. Thank you for your referral.
--- NOTE | 2022-12-02 16:02 | MHC.PT.DC ---
[facility] [place] Office [place] Office [place] Office [address] Gay Trejo [address] [phone] F: [phone] F: [phone] F: [phone] F: [phone] Physical Therapy Discharge Report Diagnosis: sprain of R ankle Date of Surgery: n/a Date of Evaluation: 10/02/22 Date of Discharge: 12/02/22 Treatments to Date: 7 Cancellations to Date: 2 No Shows to Date: 0 Discharge Status: Discharge Summary: Pt cancelled her last 2 PT appointments. She has not called to return in >30 days and therefore to be d/c at this time. Electronically signed by: Dai Hadley, PT, DPT, ATC Please sign and return to therapist. Thank you for your referral.
== END 2022-12-02 16:02 | disposition home or self-care (01) ==
LOC: HO.PTCHIC 10:00
PROVIDERS: PCP Internal Medicine; Visit Provider Internal Medicine
DX: S93.401A Sprain of unspecified ligament of right ankle, initial encounter (principal)
CPT/HCPCS: 97110; 97162

== ENCOUNTER → 2022-10-31 10:41 | Outpatient (BNVA) | payer MEDICARE, SELFPAY | PROVIDERS: PCP Internal Medicine; Visit Provider Internal Medicine Cardiovascular Disease | DX: Z51.81 Encounter for therapeutic drug level monitoring (principal); I48.0 Paroxysmal atrial fibrillation; I50.30 Unspecified diastolic (congestive) heart failure; R06.00 Dyspnea, unspecified; Z79.01 Long term (current) use of anticoagulants; Z79.899 Other long term (current) drug therapy | CPT/HCPCS: 93005; 99212 ==

== ENCOUNTER → 2022-11-14 10:58 | Outpatient (BNVA) | payer MEDICARE, SELFPAY | PROVIDERS: PCP Internal Medicine; Visit Provider Internal Medicine | DX: I48.0 Paroxysmal atrial fibrillation (principal); Z79.01 Long term (current) use of anticoagulants; Z51.81 Encounter for therapeutic drug level monitoring | CPT/HCPCS: 85610; 99211 ==

== ENCOUNTER 2022-11-26 09:06 | Outpatient (REF) | payer MEDICARE, SELFPAY ==
[2022-11-26 11:53] LABS: Estimated Average Glucose 123 mg/dL; Hemoglobin A1c % 5.9 %
[2022-11-26 12:31] LABS: Alanine Aminotransferase 17 U/L (0-31); Anion Gap 11 (12-20); Aspartate Amino Transferase 16 U/L (5-31); Blood Urea Nitrogen 17 mg/dL (9-16); Calcium 9.3 mg/dL (8.4-10.2); Carbon Dioxide 28 mmol/L (22-29); Chloride 107 mmol/L (96-108); Cholesterol 155 mg/dL; Estimated Glomerular Filt Rate 55; Glucose Fasting 119 mg/dL (60-99); HDL Cholesterol 37 mg/dL; LDL Cholesterol Calculated 92 mg/dl; Potassium 3.6 mmol/L (3.3-5.1); Sodium 142 mmol/L (135-145); Triglycerides 132 mg/dL
[2022-11-26 12:38] LABS: Vitamin D 25-OH Total 39.9 ng/mL (>30)
== END 2022-11-26 09:07 | disposition home or self-care (01) ==
LOC: HO.HMGCLDS 09:06
PROVIDERS: PCP Internal Medicine; Visit Provider Internal Medicine
DX: N18.30 Chronic kidney disease, stage 3 unspecified (principal); R73.01 Impaired fasting glucose; Z78.0 Asymptomatic menopausal state
CPT/HCPCS: 36415; 80048; 80061; 82306; 83036; 84450; 84460

== ENCOUNTER → 2022-12-05 11:21 | Outpatient (BNVA) | payer MEDICARE, SELFPAY | PROVIDERS: PCP Internal Medicine; Visit Provider Internal Medicine | DX: I48.0 Paroxysmal atrial fibrillation (principal); Z79.01 Long term (current) use of anticoagulants; Z51.81 Encounter for therapeutic drug level monitoring | CPT/HCPCS: 85610; 99211 ==

== ENCOUNTER 2023-01-06 10:25 | Outpatient (REF) | payer MEDICARE, SELFPAY ==
--- NOTE | 2023-01-06 11:50 | PFT_ITS ---
INDICATION: Therapeutic level monitoring, off medication. SPIROMETRY: FEV1 to FVC of 88% with an FEV1 of 2.12 L, which is 35% of predicted and an FVC of 2.41 L, which is 74% of predicted. No significant response to bronchodilators noted. The maximum voluntary ventilation is 80% predicted. LUNG VOLUMES: Total lung capacity of 87% predicted. Expiratory reserve volume of 60% predicted, likely secondary to an elevated BMI. DIFFUSION CAPACITY: DLCO of 80% of predicted. COMPARISONS: None. INTERPRETATION: No obstructive, no restrictive ventilatory defects are identified. No significant response to bronchodilators noted. There is a low normal maximum voluntary ventilation which could be secondary to deconditioning. Lung volumes are all normal with a significantly decreased expiratory reserve volume likely secondary to an elevated BMI. There is also a low normal diffusing capacity, although correcting to 97% of predicted, correcting for the alveolar volume suggesting some degree of hypoexpansion due to the elevated BMI. Otherwise, clinical correlation warranted. MD AIDEE Sal/PASCUAL / [phone]
== END 2023-01-06 10:26 | disposition home or self-care (01) ==
LOC: HO.RESP 10:25
PROVIDERS: PCP Internal Medicine; Visit Provider Internal Medicine Cardiovascular Disease
DX: I48.0 Paroxysmal atrial fibrillation (principal); Z51.81 Encounter for therapeutic drug level monitoring; Z79.01 Long term (current) use of anticoagulants; Z79.899 Other long term (current) drug therapy
CPT/HCPCS: 85610; 94060; 94727; 94729; 99211

== ENCOUNTER → 2023-01-16 11:25 | Outpatient (BNVA) | payer MEDICARE, SELFPAY | PROVIDERS: PCP Internal Medicine; Visit Provider Internal Medicine | DX: I48.0 Paroxysmal atrial fibrillation (principal); Z79.01 Long term (current) use of anticoagulants; Z51.81 Encounter for therapeutic drug level monitoring | CPT/HCPCS: 85610; 99211 ==

== ENCOUNTER → 2023-02-06 11:27 | Outpatient (BNVA) | payer MEDICARE, SELFPAY | PROVIDERS: PCP Internal Medicine; Visit Provider Internal Medicine | DX: I48.0 Paroxysmal atrial fibrillation (principal); Z79.01 Long term (current) use of anticoagulants; Z51.81 Encounter for therapeutic drug level monitoring | CPT/HCPCS: 85610; 99211 ==

== ENCOUNTER 2023-02-27 16:33 | Outpatient (REF) | payer MEDICARE, SELFPAY ==
--- NOTE | ~2023-02-27 | XR_ITS ---
EXAMINATION: XR WRIST, LEFT XR HAND, LEFT CLINICAL INFORMATION: Pain COMPARISON: None available. TECHNIQUE: PA, lateral, and oblique views of the left wrist and PA, lateral, and oblique views of the left hand FINDINGS: LEFT WRIST: The bones and soft tissues are normal. No fracture. Alignment is anatomic. Joint spaces are maintained. No erosions or soft tissue calcifications. LEFT HAND: The bones and soft tissues are normal. No fracture. Alignment is anatomic. Joint spaces are maintained. No erosions or soft tissue calcifications. XR/XR hand wrist LT IMPRESSION: Normal left hand and wrist.
== END 2023-02-27 16:34 | disposition home or self-care (01) ==
LOC: HO.HMGCX 16:33
PROVIDERS: PCP Internal Medicine; Visit Provider Internal Medicine
DX: M25.532 Pain in left wrist (principal)
CPT/HCPCS: 73110; 73130

== ENCOUNTER → 2023-03-03 10:55 | Outpatient (BNVA) | payer MEDICARE, SELFPAY | PROVIDERS: PCP Internal Medicine; Referring Provider Internal Medicine; Visit Provider Internal Medicine Cardiovascular Disease | DX: I48.0 Paroxysmal atrial fibrillation (principal); I50.30 Unspecified diastolic (congestive) heart failure; Z51.81 Encounter for therapeutic drug level monitoring; Z79.01 Long term (current) use of anticoagulants | CPT/HCPCS: 85610; 93005; 99211; 99212 ==

== ENCOUNTER → 2023-03-27 11:00 | Outpatient (BNVA) | payer MEDICARE, SELFPAY | PROVIDERS: PCP Internal Medicine; Visit Provider Internal Medicine | DX: I48.0 Paroxysmal atrial fibrillation (principal); Z79.01 Long term (current) use of anticoagulants; Z51.81 Encounter for therapeutic drug level monitoring | CPT/HCPCS: 85610; 99211 ==

== ENCOUNTER → 2023-05-08 13:42 | Outpatient (BNVA) | payer MEDICARE, SELFPAY | PROVIDERS: PCP Internal Medicine; Visit Provider Internal Medicine | DX: I48.0 Paroxysmal atrial fibrillation (principal); Z79.01 Long term (current) use of anticoagulants; Z51.81 Encounter for therapeutic drug level monitoring | CPT/HCPCS: 85610; 99211 ==

== ENCOUNTER 2023-06-05 11:46 | Outpatient (AMB) | payer MEDICARE, SELFPAY ==
--- NOTE | 2023-06-05 12:00 | MHC.OFFVISCO ---
Intake Intake Visit Reasons: Anticoagulation Allergies Sulfa (Sulfonamide Antibiotics) [SULFA(SULFONAMIDE ANTIBIOTICS)] Allergy (Unknown, Verified 06/05/23 11:55) RASH codeine Adverse Reaction (Verified 06/05/23 11:55) Vomiting oxycodone Adverse Reaction (Verified 06/05/23 11:55) Gastrointestinal Upset Medication List - Last Reconciled 06/05/23 by Falguni Marti RN amiodarone 200 mg PO DAILY ascorbate calcium (vitamin C) 500 mg PO DAILY blood sugar diagnostic (FoodzieTouch Ultra Test strips) 1 qd blood-glucose meter (FoodzieTouch Ultra2 Meter kit) As directed bumetanide 1 mg (1/2 x 2 mg) PO DAILY cholecalciferol (vitamin D3) 10 mcg PO DAILY diclofenac sodium 1% 2 grams topical QID PRN gabapentin 300 mg PO BID lancets (FoodzieTouch Delica Lancets) test blood sugar once a day mecobalamin (vitamin B12) 5,000 mcg PO DAILY multivitamin 1 tab PO DAILY warfarin See Protocol 2.5 mg orally once a day except for 5 mg on Friday. Nursing Note INR 1.7-?? out of therapeutic range Medications and supplements reviewed Patient status: no c.o- pt may have missed a dose last week Medications or supplements: no changes Diet: same Denies any signs and symptoms of bleeding or clotting or unusual bruising Bleeding, bruising, clotting discussed Nutritional guidance given: no greens for 2 days, eat a red today Dose: 5mg today then 2.5mg x 6, 5mg x 1 F/U INR Date : 2 weeks? Patient verbalizing understanding of instructions given. 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
[2023-06-05 12:01] LABS: Prothrombin Time Whole Bld POC 20.6 sec (11.1-13.5); ~PT, ~INR - Anti Coag Clinic 1.7 (0.9-1.1)
== END 2023-06-05 12:11 | disposition home or self-care (01) ==
LOC: HO.ACS 11:46
PROVIDERS: PCP Internal Medicine; Visit Provider Internal Medicine
DX: Z79.01 Long term (current) use of anticoagulants (principal)

== ENCOUNTER → 2023-06-05 11:46 | Outpatient (BNVA) | payer MEDICARE, SELFPAY | PROVIDERS: PCP Internal Medicine; Visit Provider Internal Medicine | DX: I48.0 Paroxysmal atrial fibrillation (principal); Z79.01 Long term (current) use of anticoagulants; Z51.81 Encounter for therapeutic drug level monitoring | CPT/HCPCS: 85610; 99211 ==

== ENCOUNTER 2023-06-19 11:35 | Outpatient (AMB) | payer MEDICARE, SELFPAY ==
--- NOTE | 2023-06-19 11:44 | MHC.OFFVISCO ---
Intake Intake Visit Reasons: Anticoagulation Allergies Sulfa (Sulfonamide Antibiotics) [SULFA(SULFONAMIDE ANTIBIOTICS)] Allergy (Unknown, Verified 06/19/23 11:41) RASH codeine Adverse Reaction (Verified 06/19/23 11:41) Vomiting oxycodone Adverse Reaction (Verified 06/19/23 11:41) Gastrointestinal Upset Medication List - Last Reconciled 06/19/23 by Falguni Marti RN amiodarone 200 mg PO DAILY ascorbate calcium (vitamin C) 500 mg PO DAILY blood sugar diagnostic (Synackuch Ultra Test strips) 1 qd blood-glucose meter (Synackuch Ultra2 Meter kit) As directed bumetanide 1 mg (1/2 x 2 mg) PO DAILY cholecalciferol (vitamin D3) 10 mcg PO DAILY diclofenac sodium 1% 2 grams topical QID PRN gabapentin 300 mg PO BID lancets (Synackuch Delica Lancets) test blood sugar once a day mecobalamin (vitamin B12) 5,000 mcg PO DAILY multivitamin 1 tab PO DAILY warfarin See Protocol 2.5 mg orally once a day except for 5 mg on Friday. Nursing Note INR: 2.3- in therapeutic range Medications and supplements reviewed- no changes No changes in health, diet, medications, or supplements, Denies any signs and symptoms of bleeding or bruising or clotting. Bleeding, bruising, clotting discussed Nutritional guidance given Dose: 2.5mg x 7 F/U INR: 4 weeks Patient verbalizes understanding of instructions given Anti-Coag Initial Assessment Social Hx Patient Tobacco Use Status: Never used Tobacco alcohol intake: never Coding Level of Care Code Est Patient Level 1 Diagnoses Current use of anticoagulant therapy Z79.01 Results AMB INR Fingerstick AMB INR Fingerstick 2.3 Last Edit by Falguni Marti RN on 06/19/23 11:45 Assessment & Plan Assessment & Plan (1) Current use of anticoagulant therapy: Code(s): Z79.01 - long-term (current) use of anticoagulants Category: Medical
[2023-06-20 08:44] LABS: Prothrombin Time Whole Bld POC 28.1 sec (11.1-13.5); ~PT, ~INR - Anti Coag Clinic 2.3 (0.9-1.1)
== END 2023-06-19 12:15 | disposition home or self-care (01) ==
LOC: HO.ACS 11:35
PROVIDERS: PCP Internal Medicine; Visit Provider Internal Medicine
DX: Z79.01 Long term (current) use of anticoagulants (principal)

== ENCOUNTER → 2023-06-19 11:35 | Outpatient (BNVA) | payer MEDICARE, SELFPAY | PROVIDERS: PCP Internal Medicine; Visit Provider Internal Medicine | DX: I48.0 Paroxysmal atrial fibrillation (principal); Z79.01 Long term (current) use of anticoagulants; Z51.81 Encounter for therapeutic drug level monitoring | CPT/HCPCS: 85610; 99211 ==

== ENCOUNTER 2023-07-07 11:25 | Outpatient (REF) | payer MEDICARE, SELFPAY ==
--- NOTE | 2023-07-07 12:04 | PFT_ITS ---
Forced vital capacity 74%, FEV1 of 84%. FEV1/FVC ratio is 86. FEF 25/75 131% and MVV is 80%. Post bronchodilator therapy, there is no significant change. Total lung capacity 75%. Residual volume 71%. Diffusion capacity 88%. CONCLUSION: Mild restrictive pulmonary disorder, most likely related to obesity. No obstructive airway disorder and no significant response to bronchodilator therapy. MD SWAPNA Gay/MODL / [phone]
== END 2023-07-07 11:26 | disposition home or self-care (01) ==
LOC: HO.RESP 11:25
PROVIDERS: PCP Internal Medicine; Visit Provider Internal Medicine Cardiovascular Disease
DX: Z79.899 Other long term (current) drug therapy (principal)
CPT/HCPCS: 94010; 94727; 94729

== ENCOUNTER → 2023-07-07 12:04 | Outpatient (BNV) | payer MEDICARE, SELFPAY | PROVIDERS: PCP Internal Medicine; Visit Provider Internal Medicine | DX: R06.09 Other forms of dyspnea (principal) | CPT/HCPCS: 94060; 94727; 94729 ==

== ENCOUNTER 2023-07-17 11:16 | Outpatient (AMB) | payer MEDICARE, SELFPAY ==
--- NOTE | 2023-07-17 11:24 | MHC.OFFVISCO ---
Intake Intake Visit Reasons: Anticoagulation Allergies Sulfa (Sulfonamide Antibiotics) [SULFA(SULFONAMIDE ANTIBIOTICS)] Allergy (Unknown, Verified 07/17/23 11:20) RASH codeine Adverse Reaction (Verified 07/17/23 11:20) Vomiting oxycodone Adverse Reaction (Verified 07/17/23 11:20) Gastrointestinal Upset Medication List - Last Reconciled 07/17/23 by Falguni Marti, RN amiodarone 200 mg PO DAILY ascorbate calcium (vitamin C) 500 mg PO DAILY blood sugar diagnostic (Civatech OncologyTouch Ultra Test strips) 1 qd blood-glucose meter (Civatech OncologyTouch Ultra2 Meter kit) As directed bumetanide 1 mg (1/2 x 2 mg) PO DAILY cholecalciferol (vitamin D3) 10 mcg PO DAILY diclofenac sodium 1% 2 grams topical QID PRN gabapentin 300 mg PO BID lancets (Civatech OncologyTouch Delica Lancets) test blood sugar once a day mecobalamin (vitamin B12) 5,000 mcg PO DAILY multivitamin 1 tab PO DAILY warfarin See Protocol 2.5 mg orally once a day except for 5 mg on Friday. Nursing Note INR: 2.2- in therapeutic range Medications and supplements reviewed- no changes No changes in health, diet, medications, or supplements, Denies any signs and symptoms of bleeding or bruising or clotting. Bleeding, bruising, clotting discussed Nutritional guidance given Dose: 5mg x , 2.5mg x 6 F/U INR: 4 weeks Patient verbalizes understanding of instructions given pt with c.o back pain and allergy issues. Anti-Coag Initial Assessment Social Hx Patient Tobacco Use Status: Never used Tobacco alcohol intake: never Coding Level of Care Code Est Patient Level 1 Diagnoses Current use of anticoagulant therapy Z79.01 Assessment & Plan Assessment & Plan (1) Current use of anticoagulant therapy: Code(s): Z79.01 - halfway (current) use of anticoagulants Category: Medical
[2023-07-17 11:25] LABS: Prothrombin Time Whole Bld POC 26.3 sec (11.1-13.5); ~PT, ~INR - Anti Coag Clinic 2.2 (0.9-1.1)
== END 2023-07-17 11:29 | disposition home or self-care (01) ==
LOC: HO.ACS 11:16
PROVIDERS: PCP Internal Medicine; Visit Provider Internal Medicine
DX: Z79.01 Long term (current) use of anticoagulants (principal)

== ENCOUNTER → 2023-07-17 11:16 | Outpatient (BNVA) | payer MEDICARE, SELFPAY | PROVIDERS: PCP Internal Medicine; Visit Provider Internal Medicine | DX: I48.0 Paroxysmal atrial fibrillation (principal); Z51.81 Encounter for therapeutic drug level monitoring; Z79.01 Long term (current) use of anticoagulants | CPT/HCPCS: 85610; 99211 ==

== ENCOUNTER 2023-07-21 09:40 | Outpatient (REF) | payer MEDICARE, SELFPAY ==
--- NOTE | ~2023-07-21 | MM_ITS ---
EXAMINATION: MM SCREENING DIGITAL BREAST TOMOSYNTHESIS, BILATERAL CLINICAL INFORMATION: Screening. Asymptomatic. COMPARISON: Mammography: 06/19/2022, 05/03/2021, 04/26/2021 (new baseline); targeted right breast ultrasound 05/03/2021. TECHNIQUE: Digital breast tomosynthesis is performed in both the craniocaudal and mediolateral oblique views along with computer-aided detection (CAD). Synthesized 2D images are generated from the tomosynthesis. FINDINGS: There are scattered areas of fibroglandular density (ACR BI-RADS breast composition Category b). There are no significant masses, abnormal calcifications, or other abnormalities. The parenchymal pattern is unchanged. MM/MM tomosynthesis screening BI IMPRESSION: No mammographic evidence of malignancy. ASSESSMENT: BI-RADS BI-RADS 1 - Negative RECOMMENDATION: Routine annual mammography screening. 1 year F/U This examination should not preclude the clinical evaluation of a suspicious palpable abnormality. This patient's information was entered into a reminder system with a target due date for their next mammogram.
== END 2023-07-21 09:41 | disposition home or self-care (01) ==
LOC: HO.MAMMO 09:40
PROVIDERS: Visit Provider Internal Medicine
DX: Z12.31 Encounter for screening mammogram for malignant neoplasm of breast (principal)
CPT/HCPCS: 77063; 77067

== ENCOUNTER → 2023-07-21 10:15 | Outpatient (BNV) | payer MEDICARE, SELFPAY | PROVIDERS: Visit Provider Radiology Diagnostic Radiology | DX: Z12.31 Encounter for screening mammogram for malignant neoplasm of breast (principal) | CPT/HCPCS: 77063; 77067 ==

== ENCOUNTER → 2023-08-21 11:25 | Outpatient (BNVA) | payer MEDICARE, SELFPAY | PROVIDERS: PCP Internal Medicine; Visit Provider Internal Medicine | DX: I48.0 Paroxysmal atrial fibrillation (principal); Z79.01 Long term (current) use of anticoagulants; Z51.81 Encounter for therapeutic drug level monitoring | CPT/HCPCS: 85610; 99211 ==

== ENCOUNTER 2023-09-08 10:07 | Outpatient (REF) | payer MEDICARE, SELFPAY ==
[2023-09-08 12:56] LABS: Alanine Aminotransferase 17 U/L (0-31); Alkaline Phosphatase 117 U/L (39-117); Aspartate Amino Transferase 19 U/L (5-31); Bilirubin Direct 0.2 mg/dL (0.0-0.5); Bilirubin Total 0.8 mg/dL (0.0-1.0)
[2023-09-08 13:03] LABS: TSH reflex Free T4 1.82 uIU/mL (0.32-4.0)
== END 2023-09-08 10:08 | disposition home or self-care (01) ==
LOC: HO.LAB 10:07
PROVIDERS: PCP Internal Medicine; Visit Provider Internal Medicine Cardiovascular Disease
DX: I48.0 Paroxysmal atrial fibrillation (principal); Z79.899 Other long term (current) drug therapy
CPT/HCPCS: 36415; 80076; 84443; 93005; 99212

== ENCOUNTER 2023-09-08 11:18 | Outpatient (AMB) | payer MEDICARE, SELFPAY ==
[2023-09-08 11:32] VITALS: BP 120/80; PULSE 57; BMI 40.0
--- NOTE | 2023-09-08 11:32 | MHC.OFFVIS ---
Intake Vital Signs 09/08/23 11:32 Height 5 ft 5 in Weight 240 lb 4.862 oz BMI 40.0 BP 120/80 Blood Pressure Location Lt brachial Position Sitting Pulse 57 Intake Visit Reasons: 6 month follow-up Intake Note: 6 month follow-up with ekg c/o last Friday had pain above left breast lasting about 5 min Upper Cutter Machine Required: No Allergies Sulfa (Sulfonamide Antibiotics) [SULFA(SULFONAMIDE ANTIBIOTICS)] Allergy (Unknown, Verified 08/21/23 11:28) RASH codeine Adverse Reaction (Verified 08/21/23 11:28) Vomiting oxycodone Adverse Reaction (Verified 08/21/23 11:28) Gastrointestinal Upset Medication List - Last Reconciled 09/08/23 by Bernard Butterfield MD amiodarone 200 mg PO DAILY ascorbate calcium (vitamin C) 500 mg PO DAILY blood sugar diagnostic (Ducattuch Ultra Test strips) 1 qd blood-glucose meter (Ducattuch Ultra2 Meter kit) As directed bumetanide 1 mg (1/2 x 2 mg) PO DAILY cholecalciferol (vitamin D3) 10 mcg PO DAILY diclofenac sodium 1% 2 grams topical QID PRN gabapentin 300 mg PO BID lancets (OneTouch Delica Lancets) test blood sugar once a day mecobalamin (vitamin B12) 5,000 mcg PO DAILY multivitamin 1 tab PO DAILY warfarin See Protocol 2.5 mg orally once a day except for 5 mg on Friday. HPI HPI Comments History of Present Illness Details 67-year-old female here for follow-up. She was seen for dyspnea on exertion and concern for clinical heart failure. She was seen by pulmonology and was started on Bumex. She was on flecainide which was stopped. This was mainly used for paroxysmal atrial fibrillation. She was experiencing a lot of palpitations and had concern for conduction issues on the EKG. Subsequent to that she got admitted to [facility] with kidney injury. Her Lasix dose was decreased. After this we did a left and right heart catheterization as outpatient which showed no coronary disease and normal filling pressures. During her admission at [facility] she was started on amiodarone for atrial fibrillation. She continued to be significantly short of breath. On discussing with her these symptoms are at least 4 to 5 years old. These have worsened progressively over this time. She has gained at least 70-80 lb in the last 3-4 years. She has chronic fatigue, She has no palpitations. She continues to have ALLEN. Patient was advised to do regular exercise and lose some weight. On follow-up she is doing well. She is denying any significant shortness of breath or chest discomfort. She is starting to go to a gym with her sister who will be a gym partner. She has been taking amiodarone for atrial fibrillation and is currently on Coumadin for anticoagulation. Does not have any significant orthopnea or PND. No significant peripheral edema. 09/08/2023: She returns for follow-up. Been exercising and is feeling better than before. No significant shortness of breath. Occasionally gets palpitations. She had left-sided sharp chest pain lasting for 5 minutes on last Friday. She is saying she has been active since then and has not had any further chest discomfort. LFTs and TSH are normal. June 2023 she had PFTs which showed restrictive picture due to obesity. [facility] Medical History Acute pain of left wrist Anemia Ankle pain, right CKD (chronic kidney disease) stage 3, GFR 30-59 ml/min Diastolic heart failure Diverticulitis DVT (deep venous thrombosis) Elevated brain natriuretic peptide (BNP) level Hip pain History of deep vein thrombophlebitis of lower extremity Hyperkalemia Hyperlipidemia Iliotibial band syndrome Impaired fasting glucose Knee pain Lower back pain Lumbosacral radiculopathy due to osteoarthritis of spine Morbid obesity Obesity BERE (obstructive sleep apnea) Osteoarthritis of right ankle and foot Paroxysmal A-fib Peripheral vascular complication of surgical procedure Peripheral vascular disease Positive ALVIN (antinuclear antibody) Postmenopausal Right shoulder pain Shortness of breath on exertion Vaccine refused by patient Venous insufficiency of both lower extremities Surgical History H/O hysterectomy for benign disease History of cardiac cath History of lithotripsy Hx of vascular surgery Family History Father Emphysema, unspecified Mother No problems noted. Brother Atrial fibrillation Sister Atrial fibrillation Sister Breast cancer Social History Household Members: None Housing: Apartment Do you presently have visiting nurse or other home services: No Alcohol intake: never Patient Tobacco Use Status: Never used Tobacco service: No Current occupational status: retired and disabled Current occupation: rt handed Cognitive needs: No Hearing needs: No Vision needs: No Review of Systems Const Denies chills, Denies fatigue, Denies fever(s), Denies frequent falls, Denies weakness, Denies weight gain and Denies weight loss ENT Denies dizziness Card Denies chest pain, Denies leg edema, Denies lightheadedness, Denies palpitations, Denies dyspnea, Denies dyspnea on exertion, Denies orthopnea and Denies other (loss of consciousness) Resp Denies cough, Denies dyspnea and Denies dyspnea on exertion GI Denies hematochezia and Denies change in stool character Musc Denies abnormal gait, Denies muscle weakness, Denies numbness, Denies radiating pain into limb and Denies tingling Neuro Denies abnormal gait, Denies dizziness, Denies frequent falls, Denies numbness, Denies tingling and Denies weakness Endo Denies fatigue and Denies palpitations Physical Exam Vital Signs: Last Vital Signs Pulse 57 09/08/23 11:32 BP 120/80 09/08/23 11:32 BMI result Body Mass Index 40.0 GENERAL APPEARANCE: in no acute distress, obese. NECK/THYROID: no carotid bruit, no jugular venous distention. SKIN: no suspicious lesions, warm and dry. HEART: no murmurs, regular rate and rhythm, S1, S2 normal. LUNGS: clear to auscultation bilaterally. ABDOMEN: normal, bowel sounds present, soft, nontender, nondistended. EXTREMITIES: no clubbing, cyanosis. Mild edema. PERIPHERAL PULSES: equal. NEUROLOGIC: nonfocal, alert and oriented. Office Procedures EKG Details: Sinus bradycardia 57 beats per minute, left axis deviation, nonspecific T-wave changes, QTC 445 milliseconds. [id number], Complete Assessment & Plan Assessment & Plan (1) Therapeutic drug monitoring: Code(s): Z51.81 - Encounter for therapeutic drug level monitoring (2) Paroxysmal A-fib: Code(s): I48.0 - Paroxysmal atrial fibrillation Plan 67-year-old female here for follow-up. She has background of paroxysmal atrial fibrillation. She is on amiodarone and Coumadin. Clinically euvolemic and not in heart failure. Continue same medications. LFTs and TSH normal. Previously PFTs were normal. f/u in 6 months. Coding Level of Care Code Est Pt Level 4 (41085) Diagnoses Therapeutic drug monitoring Z51.81 Paroxysmal A-fib I48.0 CPT Codes EKG - CPT: 26795-[id number], Complete ([id number])
== END 2023-09-08 11:54 | disposition home or self-care (01) ==
PROVIDERS: PCP Internal Medicine; Visit Provider Internal Medicine Cardiovascular Disease
DX: Z51.81 Encounter for therapeutic drug level monitoring (principal); I48.0 Paroxysmal atrial fibrillation
CPT/HCPCS: 93010; 99214

== ENCOUNTER 2023-09-11 11:28 | Outpatient (AMB) | payer MEDICARE, SELFPAY ==
[2023-09-11 11:38] LABS: Prothrombin Time Whole Bld POC 33.3 sec (11.1-13.5); ~PT, ~INR - Anti Coag Clinic 2.8 (0.9-1.1)
--- NOTE | 2023-09-11 11:44 | MHC.OFFVISCO ---
Intake Intake Visit Reasons: Anticoagulation Allergies Sulfa (Sulfonamide Antibiotics) [SULFA(SULFONAMIDE ANTIBIOTICS)] Allergy (Unknown, Verified 09/11/23 11:32) RASH codeine Adverse Reaction (Verified 09/11/23 11:32) Vomiting oxycodone Adverse Reaction (Verified 09/11/23 11:32) Gastrointestinal Upset Medication List - Last Reconciled 09/11/23 by Mirna Trejo RN amiodarone 200 mg PO DAILY ascorbate calcium (vitamin C) 500 mg PO DAILY blood sugar diagnostic (Skimo TVTouch Ultra Test strips) 1 qd blood-glucose meter (Skimo TVTouch Ultra2 Meter kit) As directed bumetanide 1 mg (1/2 x 2 mg) PO DAILY cholecalciferol (vitamin D3) 10 mcg PO DAILY diclofenac sodium 1% 2 grams topical QID PRN gabapentin 300 mg PO BID lancets (Skimo TVTouch Delica Lancets) test blood sugar once a day mecobalamin (vitamin B12) 5,000 mcg PO DAILY multivitamin 1 tab PO DAILY warfarin See Protocol 2.5 mg orally once a day except for 5 mg on Friday. Nursing Note INR: 2.8 in therapeutic range Medications and supplements reviewed No changes in health, diet, medications, or supplements, Denies any signs and symptoms of bleeding or bruising or clotting. 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
== END 2023-09-11 11:48 | disposition home or self-care (01) ==
LOC: HO.ACS 11:28
PROVIDERS: PCP Internal Medicine; Visit Provider Internal Medicine
DX: Z79.01 Long term (current) use of anticoagulants (principal)

== ENCOUNTER → 2023-09-11 11:28 | Outpatient (BNVA) | payer MEDICARE, SELFPAY | PROVIDERS: PCP Internal Medicine; Visit Provider Internal Medicine | DX: I48.0 Paroxysmal atrial fibrillation (principal); Z79.01 Long term (current) use of anticoagulants; Z51.81 Encounter for therapeutic drug level monitoring | CPT/HCPCS: 85610; 99211 ==

== ENCOUNTER 2023-09-17 13:15 | Outpatient (REF) | payer MEDICARE, SELFPAY ==
--- NOTE | ~2023-09-17 | US_ITS ---
EXAMINATION: US RETROPERITONEAL LIMITED (RENAL ONLY) CLINICAL INFORMATION: Calculus of kidney. COMPARISON: Renal ultrasound 07/22/2022, CT abdomen and pelvis 05/24/2022 TECHNIQUE: Real-time imaging of the kidneys. FINDINGS: RIGHT KIDNEY: 10.3 x 4.8 x 4.4 cm (SAG x AP x TRV). The kidney is normal in size, contour, and echogenicity. Renal cortical thickness is normal. No calculi or focal parenchymal lesions. No hydronephrosis. LEFT KIDNEY: 9.1 x 4.3 x 3.2 cm (SAG x AP x TRV). The kidney is normal in size and contour. There is increased renal cortical echotexture and renal cortical thinning. No calculi or focal parenchymal lesions. No hydronephrosis. US/US renal BI IMPRESSION: 1. No renal calculus or hydronephrosis is seen bilaterally. 2. There is increased left renal cortical echotexture renal cortical thinning, which may be associated with medical renal disease.
== END 2023-09-17 13:16 | disposition home or self-care (01) ==
LOC: HO.US 13:15
PROVIDERS: PCP Internal Medicine; Visit Provider Urology
DX: N20.0 Calculus of kidney (principal)
CPT/HCPCS: 76775

== ENCOUNTER 2023-10-09 11:36 | Outpatient (AMB) | payer MEDICARE, SELFPAY ==
--- NOTE | 2023-10-09 11:41 | MHC.OFFVISCO ---
Intake Intake Visit Reasons: Anticoagulation Allergies Sulfa (Sulfonamide Antibiotics) [SULFA(SULFONAMIDE ANTIBIOTICS)] Allergy (Unknown, Verified 10/09/23 11:37) RASH codeine Adverse Reaction (Verified 10/09/23 11:37) Vomiting oxycodone Adverse Reaction (Verified 10/09/23 11:37) Gastrointestinal Upset Medication List - Last Reconciled 10/09/23 by Falguni Marti RN amiodarone 200 mg PO DAILY ascorbate calcium (vitamin C) 500 mg PO DAILY blood sugar diagnostic ([employer] Ultra Test strips) 1 qd blood-glucose meter ([employer] Ultra2 Meter kit) As directed bumetanide 1 mg (1/2 x 2 mg) PO DAILY cholecalciferol (vitamin D3) 10 mcg PO DAILY diclofenac sodium 1% 2 grams topical QID PRN gabapentin 300 mg PO BID lancets ([employer] Delica Lancets) test blood sugar once a day mecobalamin (vitamin B12) 5,000 mcg PO DAILY multivitamin 1 tab PO DAILY warfarin See Protocol 2.5 mg orally once a day except for 5 mg on Friday. Nursing Note INR 1.8-?? out of therapeutic range of 2-3 Medications and supplements reviewed Patient status: pt states may have missed a dose last week pt states one episode afib last night- instructed to let cardiology know Medications or supplements: no changes Diet: same Denies any signs and symptoms of bleeding or clotting or unusual bruising Bleeding, bruising, clotting discussed Nutritional guidance given: no greens for 2 days, will eat a red today Dose: 5mg today then cont reg dosing- 2.5mg x 6, 5mg x 1 F/U INR Date : 2 weeks?? Patient verbalizing understanding of instructions given. Anti-Coag Initial Assessment Social Hx Patient Tobacco Use Status: Never used Tobacco alcohol intake: never Coding Level of Care Code Est Patient Level 1 Diagnoses Current use of anticoagulant therapy Z79.01 Results AMB INR Fingerstick AMB INR Fingerstick 1.8 Last Edit by Falguni Marti RN on 10/09/23 11:43 Assessment & Plan Assessment & Plan (1) Current use of anticoagulant therapy: Code(s): 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
[2023-10-09 13:35] LABS: ~PT, ~INR - Anti Coag Clinic 1.8 (0.9-1.1)
== END 2023-10-09 11:50 | disposition home or self-care (01) ==
LOC: HO.ACS 11:36
PROVIDERS: PCP Internal Medicine; Visit Provider Internal Medicine
DX: Z79.01 Long term (current) use of anticoagulants (principal)

== ENCOUNTER → 2023-10-09 11:36 | Outpatient (BNVA) | payer MEDICARE, SELFPAY | PROVIDERS: PCP Internal Medicine; Visit Provider Internal Medicine | DX: I48.0 Paroxysmal atrial fibrillation (principal); Z79.01 Long term (current) use of anticoagulants; Z51.81 Encounter for therapeutic drug level monitoring | CPT/HCPCS: 85610; 99211 ==

== ENCOUNTER 2023-10-23 11:28 | Outpatient (AMB) | payer MEDICARE, SELFPAY ==
[2023-10-23 11:38] LABS: ~PT, ~INR - Anti Coag Clinic 2.7 (0.9-1.1)
--- NOTE | 2023-10-23 11:45 | MHC.OFFVISCO ---
Intake Intake Visit Reasons: Anticoagulation Allergies Sulfa (Sulfonamide Antibiotics) [SULFA(SULFONAMIDE ANTIBIOTICS)] Allergy (Unknown, Verified 10/23/23 11:33) RASH codeine Adverse Reaction (Verified 10/23/23 11:33) Vomiting oxycodone Adverse Reaction (Verified 10/23/23 11:33) Gastrointestinal Upset Medication List - Last Reconciled 10/23/23 by Rachael Dunlap, RN amiodarone 200 mg PO DAILY ascorbate calcium (vitamin C) 500 mg PO DAILY blood sugar diagnostic ([employer] Ultra Test strips) 1 qd blood-glucose meter ([employer] Ultra2 Meter kit) As directed bumetanide 1 mg (1/2 x 2 mg) PO DAILY cholecalciferol (vitamin D3) 10 mcg PO DAILY diclofenac sodium 1% 2 grams topical QID PRN gabapentin 300 mg PO BID lancets ([employer] Delica Lancets) test blood sugar once a day mecobalamin (vitamin B12) 5,000 mcg PO DAILY multivitamin 1 tab PO DAILY warfarin See Protocol 2.5 mg orally once a day except for 5 mg on Friday. Nursing Note NO CP,SOB,DIET/MED CHANGES,FALLS OR SX OF BLEEDING. CONTINUE PRESENT DOSE AND FOLLOW-UP IN 4 WEEKS. GOOD UNDERSTANDING OF DOSING INSTR. 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
== END 2023-10-23 11:47 | disposition home or self-care (01) ==
LOC: HO.ACS 11:28
PROVIDERS: PCP Internal Medicine; Visit Provider Internal Medicine
DX: Z79.01 Long term (current) use of anticoagulants (principal)

== ENCOUNTER → 2023-10-23 11:28 | Outpatient (BNVA) | payer MEDICARE, SELFPAY | PROVIDERS: PCP Internal Medicine; Visit Provider Internal Medicine | DX: I48.0 Paroxysmal atrial fibrillation (principal); Z79.01 Long term (current) use of anticoagulants; Z51.81 Encounter for therapeutic drug level monitoring | CPT/HCPCS: 85610; 99211 ==

== ENCOUNTER 2023-11-20 11:17 | Outpatient (AMB) | payer MEDICARE, SELFPAY ==
[2023-11-20 11:22] LABS: Prothrombin Time Whole Bld POC 29.8 sec (11.1-13.5); ~PT, ~INR - Anti Coag Clinic 2.5 (0.9-1.1)
--- NOTE | 2023-11-20 11:24 | MHC.OFFVISCO ---
Intake Intake Visit Reasons: Anticoagulation Allergies Sulfa (Sulfonamide Antibiotics) [SULFA(SULFONAMIDE ANTIBIOTICS)] Allergy (Unknown, Verified 11/20/23 11:17) RASH codeine Adverse Reaction (Verified 11/20/23 11:17) Vomiting oxycodone Adverse Reaction (Verified 11/20/23 11:17) Gastrointestinal Upset Medication List - Last Reconciled 11/20/23 by Falguni Marti, RN amiodarone 200 mg PO DAILY ascorbate calcium (vitamin C) 500 mg PO DAILY blood sugar diagnostic ([employer] Ultra Test strips) 1 qd blood-glucose meter ([employer] Ultra2 Meter kit) As directed bumetanide 1 mg (1/2 x 2 mg) PO DAILY cholecalciferol (vitamin D3) 10 mcg PO DAILY diclofenac sodium 1% 2 grams topical QID PRN gabapentin 300 mg PO BID lancets ([employer] Delica Lancets) test blood sugar once a day mecobalamin (vitamin B12) 5,000 mcg PO DAILY multivitamin 1 tab PO DAILY warfarin See Protocol 2.5 mg orally once a day except for 5 mg on Friday. Nursing Note INR: 2.5- in therapeutic range of 2-3 Medications and supplements reviewed- no changes No changes in health, diet, medications, or supplements, Denies any signs and symptoms of bleeding or bruising or clotting. 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
== END 2023-11-20 11:31 | disposition home or self-care (01) ==
LOC: HO.ACS 11:17
PROVIDERS: PCP Internal Medicine; Visit Provider Internal Medicine
DX: Z79.01 Long term (current) use of anticoagulants (principal)

== ENCOUNTER → 2023-11-20 11:17 | Outpatient (BNVA) | payer MEDICARE, SELFPAY | PROVIDERS: PCP Internal Medicine; Visit Provider Internal Medicine | DX: I48.0 Paroxysmal atrial fibrillation (principal); Z79.01 Long term (current) use of anticoagulants; Z51.81 Encounter for therapeutic drug level monitoring | CPT/HCPCS: 85610; 99211 ==

== ENCOUNTER 2023-12-11 11:23 | Outpatient (AMB) | payer MEDICARE, SELFPAY ==
[2023-12-11 11:38] LABS: Prothrombin Time Whole Bld POC 24.4 sec (11.1-13.5)
--- NOTE | 2023-12-11 11:40 | MHC.OFFVISCO ---
Intake Intake Visit Reasons: Anticoagulation Allergies Sulfa (Sulfonamide Antibiotics) [SULFA(SULFONAMIDE ANTIBIOTICS)] Allergy (Unknown, Verified 12/11/23 11:32) RASH codeine Adverse Reaction (Verified 12/11/23 11:32) Vomiting oxycodone Adverse Reaction (Verified 12/11/23 11:32) Gastrointestinal Upset Medication List - Last Reconciled 12/11/23 by Mirna Trejo RN amiodarone 200 mg PO DAILY ascorbate calcium (vitamin C) 500 mg PO DAILY blood sugar diagnostic ([employer] Post[employer] Ultra Test strips) 1 qd blood-glucose meter ([employer] PostTouch Ultra2 Meter kit) As directed bumetanide 1 mg (1/2 x 2 mg) PO DAILY cholecalciferol (vitamin D3) 10 mcg PO DAILY diclofenac sodium 1% 2 grams topical QID PRN gabapentin 300 mg PO BID lancets ([employer] Delica Lancets) test blood sugar once a day mecobalamin (vitamin B12) 5,000 mcg PO DAILY multivitamin 1 tab PO DAILY warfarin See Protocol 2.5 mg orally once a day except for 5 mg on Friday. Nursing Note INR: 2.0 in therapeutic range Medications and supplements reviewed No changes in health, diet, medications, or supplements, GOING TO [facility] NEAR [place] TO VISIT DAUGHTER FOR SEVERAL WEEKS Denies any signs and symptoms of bleeding or bruising or clotting. 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
== END 2023-12-11 11:45 | disposition home or self-care (01) ==
LOC: HO.ACS 11:23
PROVIDERS: PCP Internal Medicine; Visit Provider Internal Medicine
DX: Z79.01 Long term (current) use of anticoagulants (principal)

== ENCOUNTER → 2023-12-11 11:23 | Outpatient (BNVA) | payer MEDICARE, SELFPAY | PROVIDERS: PCP Internal Medicine; Visit Provider Internal Medicine | DX: I48.0 Paroxysmal atrial fibrillation (principal); Z79.01 Long term (current) use of anticoagulants; Z51.81 Encounter for therapeutic drug level monitoring | CPT/HCPCS: 85610; 99211 ==

== ENCOUNTER 2024-01-08 11:32 | Outpatient (AMB) | payer MEDICARE, SELFPAY ==
[2024-01-08 11:44] LABS: Prothrombin Time Whole Bld POC 21.4 sec (11.1-13.5); ~PT, ~INR - Anti Coag Clinic 1.8 (0.9-1.1)
--- NOTE | 2024-01-08 12:00 | MHC.OFFVISCO ---
Intake Intake Visit Reasons: Anticoagulation Allergies Sulfa (Sulfonamide Antibiotics) [SULFA(SULFONAMIDE ANTIBIOTICS)] Allergy (Unknown, Verified 01/08/24 11:34) RASH codeine Adverse Reaction (Verified 01/08/24 11:34) Vomiting oxycodone Adverse Reaction (Verified 01/08/24 11:34) Gastrointestinal Upset Medication List - Last Reconciled 01/08/24 by Theresa Philip RN amiodarone 200 mg PO DAILY ascorbate calcium (vitamin C) 500 mg PO DAILY blood sugar diagnostic ([employer] Ultra Test strips) 1 qd blood-glucose meter ([employer]Touch Ultra2 Meter kit) As directed bumetanide 1 mg (1/2 x 2 mg) PO DAILY cholecalciferol (vitamin D3) 10 mcg PO DAILY diclofenac sodium 1% 2 grams topical QID PRN gabapentin 300 mg PO BID lancets ([employer] Delica Lancets) test blood sugar once a day mecobalamin (vitamin B12) 5,000 mcg PO DAILY multivitamin 1 tab PO DAILY warfarin See Protocol 2.5 mg orally once a day except for 5 mg on Friday. Nursing Note INR 1.8?out of therapeutic range OF 2-3 Medications and supplements reviewed Patient status: NO CHANGES Medications or supplements: NO CHANGES Diet: PT STATES DIET HAS BEEN A BIT OFF FOR HER SHE JUST GOT BACK FROM A 3 WEEK VISIT WITH HER DAUGHTER Denies any signs and symptoms of bleeding or clotting or unusual bruising Bleeding, bruising, clotting discussed Nutritional guidance given: PT TO HAVE INCREASED DOSE OF REDS TODAY AND TOMORROW Dose: INCREASED TODAY TO 5MG THEN TO RESUME USUAL DOSE OF 2.5MG X 6DAYS AND 5MG X1DAY F/U INR Date : 2 WEEKS?? Patient verbalizing understanding of instructions given. Anti-Coag Initial Assessment Social Hx Patient Tobacco Use Status: Never used Tobacco alcohol intake: never Questionnaires HAS-BLED Does the patient had uncontrolled Hypertension?: No Does the patient have renal disease?: Yes Does the patient have liver disease?: No Does the patient have a history of stroke?: No Has the patient had major bleeding or predisposition to bleeding?: Yes Does the patient have labile INRs?: No Is the patient over 65 years of age?: Yes Is the patient on medications that gives them a predisposition to bleeding?: Yes Does the patient use alcohol?: No HAS-BLED Score: 4 CHADSVASC Age: 66-74 Gender: Female Does the patient have a history of CHF?: Yes Does the patient have a history of Hypertension?: No Does the patient have a history of Stroke/TIA/Thromboembolism?: Yes Does the patient have a history of Vascular Disease (prior HI, PAD or aortic plaque)?: No Does the patient have a history of Diabetes?: Yes CHADS VACS Score: 6 Hebert Prediction Score Rsk VTE Active Cancer: No Previous VTE, excluding superficial vein thrombosis: Yes Reduced mobility: No Already known Thrombophilic Condition: Yes With-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 Trauma and/or Surgery: No Elderly 70 year or older: No Heart and/or Respiratory Failure: Yes Acute Myocardial infarction and/or Ischemic Stroke: No Acute Infection and/or Rheumatologic Disorder: Yes Obesity (BMI 30 or greater): Yes Ongoing Hormonal Treatment: No Score: 9 Hebert Score less than 4; Low Risk of VTE Hebert Score 4 or greater; High Risk of VTE Coding Level of Care Code Est Patient Level 1 Diagnoses Current use of anticoagulant therapy Z79.01 Assessment & Plan Assessment & Plan (1) Current use of anticoagulant therapy: 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
== END 2024-01-08 12:05 | disposition home or self-care (01) ==
LOC: HO.ACS 11:32
PROVIDERS: PCP Internal Medicine; Visit Provider Internal Medicine
DX: Z79.01 Long term (current) use of anticoagulants (principal)

== ENCOUNTER → 2024-01-08 11:32 | Outpatient (BNVA) | payer MEDICARE, SELFPAY | PROVIDERS: PCP Internal Medicine; Visit Provider Internal Medicine | DX: I48.0 Paroxysmal atrial fibrillation (principal); Z79.01 Long term (current) use of anticoagulants; Z51.81 Encounter for therapeutic drug level monitoring | CPT/HCPCS: 85610; 99211 ==

== ENCOUNTER 2024-01-22 11:34 | Outpatient (AMB) | payer MEDICARE, SELFPAY ==
[2024-01-22 11:41] LABS: Prothrombin Time Whole Bld POC 16.4 sec (11.1-13.5); ~PT, ~INR - Anti Coag Clinic 1.4 (0.9-1.1)
--- NOTE | 2024-01-22 11:52 | MHC.OFFVISCO ---
Intake Intake Visit Reasons: Anticoagulation Allergies Sulfa (Sulfonamide Antibiotics) [SULFA(SULFONAMIDE ANTIBIOTICS)] Allergy (Unknown, Verified 01/22/24 11:35) RASH codeine Adverse Reaction (Verified 01/22/24 11:35) Vomiting oxycodone Adverse Reaction (Verified 01/22/24 11:35) Gastrointestinal Upset Medication List - Last Reconciled 01/22/24 by Mirna Trejo RN amiodarone 200 mg PO DAILY ascorbate calcium (vitamin C) 500 mg PO DAILY blood sugar diagnostic ([employer] Ultra Test strips) 1 qd blood-glucose meter ([employer]Touch Ultra2 Meter kit) As directed bumetanide 1 mg (1/2 x 2 mg) PO DAILY cholecalciferol (vitamin D3) 10 mcg PO DAILY diclofenac sodium 1% 2 grams topical QID PRN gabapentin 300 mg PO BID lancets ([employer] Delica Lancets) test blood sugar once a day mecobalamin (vitamin B12) 5,000 mcg PO DAILY multivitamin 1 tab PO DAILY warfarin See Protocol 2.5 mg orally once a day except for 5 mg on Friday. Nursing Note INR 1.4?? out of therapeutic range Medications and supplements reviewed Patient status: MAYBE R/T NO HAVING ENOUGH ORANGE OR RED VEGETABLES, Just had an appt with vein - and had ultra sounds yesterday- planning a vein ligation in March [address] Rivera - she actually had US of both legs yesterday. Medications or supplements: no changes Diet: good Denies any signs and symptoms of bleeding or clotting or unusual bruising Bleeding, bruising, clotting discussed Nutritional guidance given: avoid greens x 2 days , eat orange and reds today to help raise the INR Dose: 5mg x 2 days/ F/U INR Date : 01/27/24?? Patient verbalizing understanding of instructions given. 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
== END 2024-01-22 12:07 | disposition home or self-care (01) ==
LOC: HO.ACS 11:34
PROVIDERS: PCP Internal Medicine; Visit Provider Internal Medicine
DX: Z79.01 Long term (current) use of anticoagulants (principal)

== ENCOUNTER → 2024-01-22 11:34 | Outpatient (BNVA) | payer MEDICARE, SELFPAY | PROVIDERS: PCP Internal Medicine; Visit Provider Internal Medicine | DX: I48.0 Paroxysmal atrial fibrillation (principal); Z79.01 Long term (current) use of anticoagulants; Z51.81 Encounter for therapeutic drug level monitoring | CPT/HCPCS: 85610; 99211 ==

== ENCOUNTER 2024-01-27 11:00 | Outpatient (AMB) | payer MEDICARE, SELFPAY ==
--- NOTE | 2024-01-27 11:08 | MHC.OFFVISCO ---
Intake Intake Visit Reasons: Anticoagulation Allergies Sulfa (Sulfonamide Antibiotics) [SULFA(SULFONAMIDE ANTIBIOTICS)] Allergy (Unknown, Verified 01/27/24 11:04) RASH codeine Adverse Reaction (Verified 01/27/24 11:04) Vomiting oxycodone Adverse Reaction (Verified 01/27/24 11:04) Gastrointestinal Upset Medication List - Last Reconciled 01/27/24 by Falguni Marti RN amiodarone 200 mg PO DAILY ascorbate calcium (vitamin C) 500 mg PO DAILY blood sugar diagnostic ([employer]Touch Ultra Test strips) 1 qd blood-glucose meter ([employer]Touch Ultra2 Meter kit) As directed bumetanide 1 mg (1/2 x 2 mg) PO DAILY cholecalciferol (vitamin D3) 10 mcg PO DAILY diclofenac sodium 1% 2 grams topical QID PRN gabapentin 300 mg PO BID lancets ([employer]Touch Delica Lancets) test blood sugar once a day mecobalamin (vitamin B12) 5,000 mcg PO DAILY multivitamin 1 tab PO DAILY warfarin See Protocol 2.5 mg orally once a day except for 5 mg on Friday. Nursing Note INR: 2.1- in therapeutic range of 2-3 Medications and supplements reviewed- no changes No changes in health, diet, medications, or supplements, Denies any signs and symptoms of bleeding or bruising or clotting. Bleeding, bruising, clotting discussed Nutritional guidance given Dose: cont increased weekly dosing- 5mg x 2, 2.5mg x 5 F/U INR: 2 weeks Patient verbalizes understanding of instructions given pt to have vein ligation on april 08, 2024. will question if warfarin needs to be held prior to proc Anti-Coag Initial Assessment Social Hx Patient Tobacco Use Status: Never used Tobacco alcohol intake: never Coding Level of Care Code Est Patient Level 1 Diagnoses Current use of anticoagulant therapy Z79.01 Results AMB INR Fingerstick AMB INR Fingerstick 2.1 Last Edit by Falguni Marti RN on 01/27/24 11:09 Assessment & Plan Assessment & Plan (1) Current use of anticoagulant therapy: Code(s): Z79.01 - snf (current) use of anticoagulants Category: Medical
[2024-01-27 11:09] LABS: Prothrombin Time Whole Bld POC 24.8 sec (11.1-13.5); ~PT, ~INR - Anti Coag Clinic 2.1 (0.9-1.1)
== END 2024-01-27 11:33 | disposition home or self-care (01) ==
LOC: HO.ACS 11:00
PROVIDERS: PCP Internal Medicine; Visit Provider Internal Medicine
DX: Z79.01 Long term (current) use of anticoagulants (principal)

== ENCOUNTER → 2024-01-27 11:00 | Outpatient (BNVA) | payer MEDICARE, SELFPAY | PROVIDERS: PCP Internal Medicine; Visit Provider Internal Medicine | DX: I48.0 Paroxysmal atrial fibrillation (principal); Z79.01 Long term (current) use of anticoagulants; Z51.81 Encounter for therapeutic drug level monitoring | CPT/HCPCS: 85610; 99211 ==

== ENCOUNTER 2024-02-12 10:44 | Outpatient (AMB) | payer MEDICARE, SELFPAY ==
[2024-02-12 10:52] LABS: Prothrombin Time Whole Bld POC 22.4 sec (11.1-13.5); ~PT, ~INR - Anti Coag Clinic 1.9 (0.9-1.1)
--- NOTE | 2024-02-12 11:06 | MHC.OFFVISCO ---
Intake Intake Visit Reasons: Anticoagulation Allergies Sulfa (Sulfonamide Antibiotics) [SULFA(SULFONAMIDE ANTIBIOTICS)] Allergy (Unknown, Verified 02/12/24 10:46) RASH codeine Adverse Reaction (Verified 02/12/24 10:46) Vomiting oxycodone Adverse Reaction (Verified 02/12/24 10:46) Gastrointestinal Upset Medication List - Last Reconciled 02/12/24 by Mirna Trejo RN amiodarone 200 mg PO DAILY ascorbate calcium (vitamin C) 500 mg PO DAILY blood sugar diagnostic ([employer] Ultra Test strips) 1 qd blood-glucose meter ([employer] Ultra2 Meter kit) As directed bumetanide 1 mg (1/2 x 2 mg) PO DAILY cholecalciferol (vitamin D3) 10 mcg PO DAILY diclofenac sodium 1% 2 grams topical QID PRN gabapentin 300 mg PO BID lancets ([employer] Delica Lancets) test blood sugar once a day mecobalamin (vitamin B12) 5,000 mcg PO DAILY multivitamin 1 tab PO DAILY warfarin See Protocol 2.5 mg X4 DAYS/ 5MG X 3 DAYS Nursing Note INR 1.9 out of therapeutic range Medications and supplements reviewed Patient status: C/O LEFT KNEE PAIN - USE TO RECEIVE CORTISONE INJECTIONS IN THAT KNEE YEARS AGO. SHE IS GOING TO CALL ORTHO FOR APPT, SHE HAD CABBAGE OVER WEEKEND, Medications or supplements: NO CHANGES Diet: GOOD Denies any signs and symptoms of bleeding or clotting or unusual bruising Bleeding, bruising, clotting discussed Nutritional guidance given: REVIEW FOOD LIST WEEKLY, AVOID GREENS X 2 DAYS, EAT FOODS TO HELP RAISE THE INR TODAY, Dose: INCREASE WEEKLY DOSE ( USE TO BE ON HIGHER DOSE 2017) INCREASE TO 5MG X 3 DAYS/ 2.5MG X 4 DAYS F/U INR Date : 2 WEEKS?? Patient verbalizing understanding of instructions given. 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 90 tabs 7RF Z86.72 - Personal history of thrombophlebitis To warfarin See Protocol 2.5 mg X4 DAYS/ 5MG X 3 DAYS Z86.72 - Personal history of thrombophlebitis
== END 2024-02-12 11:15 | disposition home or self-care (01) ==
LOC: HO.ACS 10:44
PROVIDERS: PCP Internal Medicine; Visit Provider Internal Medicine
DX: Z79.01 Long term (current) use of anticoagulants (principal)

== ENCOUNTER → 2024-02-12 10:44 | Outpatient (BNVA) | payer MEDICARE, SELFPAY | PROVIDERS: PCP Internal Medicine; Visit Provider Internal Medicine | DX: I48.0 Paroxysmal atrial fibrillation (principal); Z79.01 Long term (current) use of anticoagulants; Z51.81 Encounter for therapeutic drug level monitoring | CPT/HCPCS: 85610; 99211 ==

== ENCOUNTER 2024-03-01 10:53 | Outpatient (AMB) | payer MEDICARE, SELFPAY ==
[2024-03-01 11:02] LABS: Prothrombin Time Whole Bld POC 42.4 sec (11.1-13.5); ~PT, ~INR - Anti Coag Clinic 3.5 (0.9-1.1)
--- NOTE | 2024-03-01 11:12 | MHC.OFFVISCO ---
Intake Intake Visit Reasons: Anticoagulation Allergies Sulfa (Sulfonamide Antibiotics) [SULFA(SULFONAMIDE ANTIBIOTICS)] Allergy (Unknown, Verified 02/12/24 10:46) RASH codeine Adverse Reaction (Verified 02/12/24 10:46) Vomiting oxycodone Adverse Reaction (Verified 02/12/24 10:46) Gastrointestinal Upset Nursing Note INR: 3.5 in therapeutic range Medications and supplements reviewed States she didnt feel well last week - she wasnt sure if she was fighting something or if it was allergies - sinus and ear congestion slight decrease in appetite - may have raised the INR her warfarin dose was also increased- she likes greens will try dose again Denies any signs and symptoms of bleeding or bruising or clotting. Bleeding, bruising, clotting discussed Nutritional guidance given - review food list weekly, eat greens weekly , eat a mix of fruits and vegetables Dose: 5MG X 3 DAYS/ 2.5MG X 4 DAYS F/U INR: 2 WEEKS Patient verbalizes understanding of instructions given Anti-Coag Initial Assessment Social Hx Patient Tobacco Use Status: Never used Tobacco alcohol intake: never Coding Level of Care Code Est Patient Level 1 Diagnoses Current use of anticoagulant therapy Z79.01 Results AMB INR Fingerstick AMB INR Fingerstick 3.5 Last Edit by Mirna Trejo RN on 03/01/24 11:02 manual entry Assessment & Plan Assessment & Plan (1) Current use of anticoagulant therapy: Code(s): Z79.01 - FPC (current) use of anticoagulants Category: Medical
== END 2024-03-01 11:17 | disposition home or self-care (01) ==
LOC: HO.ACS 10:53
PROVIDERS: PCP Internal Medicine; Visit Provider Internal Medicine
DX: Z79.01 Long term (current) use of anticoagulants (principal)

== ENCOUNTER → 2024-03-01 10:53 | Outpatient (BNVA) | payer MEDICARE, SELFPAY | PROVIDERS: PCP Internal Medicine; Visit Provider Internal Medicine | DX: I48.0 Paroxysmal atrial fibrillation (principal); Z79.01 Long term (current) use of anticoagulants; Z51.81 Encounter for therapeutic drug level monitoring | CPT/HCPCS: 85610; 99211 ==

== ENCOUNTER 2024-03-15 11:01 | Outpatient (AMB) | payer MEDICARE, SELFPAY ==
--- NOTE | 2024-03-15 11:24 | MHC.OFFVISCO ---
Intake Intake Visit Reasons: Anticoagulation Allergies Sulfa (Sulfonamide Antibiotics) [SULFA(SULFONAMIDE ANTIBIOTICS)] Allergy (Unknown, Verified 03/15/24 11:12) RASH codeine Adverse Reaction (Verified 03/15/24 11:12) Vomiting oxycodone Adverse Reaction (Verified 03/15/24 11:12) Gastrointestinal Upset Medication List - Last Reconciled 03/15/24 by Theresa Philip RN amiodarone 200 mg PO DAILY ascorbate calcium (vitamin C) 500 mg PO DAILY blood sugar diagnostic ([employer]Touch Ultra Test strips) 1 qd blood-glucose meter ([employer]Touch Ultra2 Meter kit) As directed bumetanide 1 mg (1/2 x 2 mg) PO DAILY cholecalciferol (vitamin D3) 10 mcg PO DAILY diclofenac sodium 1% 2 grams topical QID PRN gabapentin 300 mg PO BID lancets ([employer]Touch Delica Lancets) test blood sugar once a day mecobalamin (vitamin B12) 5,000 mcg PO DAILY multivitamin 1 tab PO DAILY warfarin See Protocol 2.5 mg X4 DAYS/ 5MG X 3 DAYS Nursing Note INR: 3.7 in therapeutic range of 2-3 Medications and supplements reviewed: no change No changes in health, diet, medications, or supplements, Denies any signs and symptoms of bleeding or bruising or clotting. Bleeding, bruising, clotting discussed Nutritional guidance given to review the food list and have a serving of greens today Dose: hold today's dose of 2.5mg and then resume usual dose of 5mg X3 days and 2.5mg X 4 days F/U INR: 1 week Patient verbalizes understanding of instructions given Anti-Coag Initial Assessment Social Hx Patient Tobacco Use Status: Never used Tobacco alcohol intake: never Coding Level of Care Code Est Patient Level 1 Diagnoses Current use of anticoagulant therapy Z79.01 Results AMB INR Fingerstick AMB INR Fingerstick 3.7 Last Edit by Theresa Philip RN on 03/15/24 11:20 interface delay Assessment & Plan Assessment & Plan (1) Current use of anticoagulant therapy: Code(s): Z79.01 - custodial (current) use of anticoagulants Category: Medical
[2024-03-15 11:25] LABS: Prothrombin Time Whole Bld POC 44.1 sec (11.1-13.5); ~PT, ~INR - Anti Coag Clinic 3.7 (0.9-1.1)
== END 2024-03-15 11:27 | disposition home or self-care (01) ==
LOC: HO.ACS 11:01
PROVIDERS: PCP Internal Medicine; Visit Provider Internal Medicine
DX: Z79.01 Long term (current) use of anticoagulants (principal)

== ENCOUNTER → 2024-03-15 11:01 | Outpatient (BNVA) | payer MEDICARE, SELFPAY | PROVIDERS: PCP Internal Medicine; Visit Provider Internal Medicine | DX: I50.30 Unspecified diastolic (congestive) heart failure (principal); I48.0 Paroxysmal atrial fibrillation; E66.01 Morbid (severe) obesity due to excess calories; N18.9 Chronic kidney disease, unspecified; G47.33 Obstructive sleep apnea (adult) (pediatric); R06.02 Shortness of breath; Z51.81 Encounter for therapeutic drug level monitoring; Z79.01 Long term (current) use of anticoagulants | CPT/HCPCS: 85610; 93005; 99211; 99212 ==

== ENCOUNTER 2024-03-15 14:37 | Outpatient (AMB) | payer MEDICARE, SELFPAY ==
[2024-03-15 14:40] VITALS: BP 140/80; PULSE 60; BMI 40.7
--- NOTE | 2024-03-15 14:40 | A.OFFVIS_ITS ---
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 Allergies Sulfa (Sulfonamide Antibiotics) [SULFA(SULFONAMIDE ANTIBIOTICS)] Allergy (Unknown, Verified 03/15/24 14:43) RASH codeine Adverse Reaction (Verified 03/15/24 14:43) Vomiting oxycodone Adverse Reaction (Verified 03/15/24 14:43) Gastrointestinal Upset Medication List - Last Reconciled 03/15/24 by Yolanda Valencia, FAMILY THERAPIST-C amiodarone 200 mg PO DAILY ascorbate calcium (vitamin C) 500 mg PO DAILY blood sugar diagnostic ([employer] Ultra Test strips) 1 qd blood-glucose meter ([employer] Ultra2 Meter kit) As directed bumetanide 1 mg (1/2 x 2 mg) PO DAILY cholecalciferol (vitamin D3) 10 mcg PO DAILY diclofenac sodium 1% 2 grams topical QID PRN gabapentin 300 mg PO BID lancets ([employer] Delica Lancets) test blood sugar once a day mecobalamin (vitamin B12) 5,000 mcg PO DAILY multivitamin 1 tab PO DAILY warfarin See Protocol 2.5 mg X4 DAYS/ 5MG X 3 DAYS HPI HPI 6 mn f/up- km pt: Details: Davida is a 68-year-old female past medical history of morbid obesity, chronic kidney disease, obstructive sleep apnea, diastolic heart failure, paroxysmal atrial fibrillation who presents for follow-up. Today she reports that she has been doing well since her last visit in August. She has noticed some heart palpitations recently but is unsure if it was atrial fibrillation or not. No chest discomfort at rest or with activity. She has chronic shortness of breath with exertional activities. No shortness of breath at rest, PND, orthopnea. She is right lower leg edema which she relates to issues with her right knee. No presyncope, syncope, falls. Takes meds as directed. No bleeding issues reported. [facility] Medical History Right shoulder pain Acute pain of left wrist Impaired fasting glucose Shortness of breath on exertion Vaccine refused by patient Elevated brain natriuretic peptide (BNP) level Anemia Hyperkalemia Morbid obesity Iliotibial band syndrome Lumbosacral radiculopathy due to osteoarthritis of spine History of deep vein thrombophlebitis of lower extremity Positive ALVIN (antinuclear antibody) CKD (chronic kidney disease) stage 3, GFR 30-59 ml/min Knee pain Osteoarthritis of right ankle and foot Lower back pain Ankle pain, right Postmenopausal Obesity Hip pain Venous insufficiency of both lower extremities Diverticulitis Peripheral vascular complication of surgical procedure Peripheral vascular disease Hyperlipidemia DVT (deep venous thrombosis) Diastolic heart failure Paroxysmal A-fib BERE (obstructive sleep apnea) Surgical History History of lithotripsy History of cardiac cath Hx of vascular surgery H/O hysterectomy for benign disease Family History Father Emphysema, unspecified Mother No problems noted. Brother Atrial fibrillation Sister Atrial fibrillation Sister Breast cancer Social History Household Members: None Housing: Apartment Do you presently have visiting nurse or other home services: No Alcohol intake: never Patient Tobacco Use Status: Never used Tobacco service: No Current occupational status: retired and disabled Current occupation: rt handed Cognitive needs: No Hearing needs: No Vision needs: No Review of Systems Const All systems reviewed & are unremarkable except as noted in HPI and below ENT Reports dizziness Card Denies chest pain, Denies chest pain at rest, Denies chest pain with activity, Denies rapid heart rate, Denies pedal edema, Denies edema, Reports leg edema, Denies lightheadedness, Reports palpitations, Denies dyspnea, Denies dyspnea on exertion and Denies orthopnea Resp Denies cough, Denies dyspnea and Denies dyspnea on exertion GI Denies hematochezia and Denies change in stool character Musc Denies abnormal gait, Denies limited range of motion, Denies muscle cramps, Denies muscle weakness, Denies numbness, Denies radiating pain into limb, Denies stiffness and Denies tingling Neuro Denies abnormal gait, Reports dizziness, Denies numbness and Denies tingling Endo Reports palpitations Physical Exam Vital Signs: Last Vital Signs Pulse 60 03/15/24 14:40 BP 140/80 H 03/15/24 14:40 BMI result Body Mass Index 40.7 Const General: cooperative, healthy appearing, comfortable and no acute distress Orientation/consciousness: patient oriented x3 Neck Neck: Yes normal visual inspection and Yes no JVD Resp Effort & Inspection: normal respiratory effort Auscultation: clear to auscultation bilaterally, no crackles, no rales, no rhonchi and no wheezes Cardio Jugular venous distension: no JVD Rate: regular rate Rhythm: regular rhythm Heart sounds: S1 normal heart sound present, S2 normal heart sound present, no murmurs and no rubs Neuro General: patient oriented x3 Extrem General: Yes normal to inspection and No no pedal edema Psych Appearance: grossly normal Mental Status: mental status grossly normal Speech and movement: Normal speech and movement present Office Procedures EKG Details: Today, read by me, sinus rhythm, first-degree AV block, can not exclude prior anterior infarct, minimal voltage for LVH, maybe normal variant, rate 60, QTC 446 milliseconds [id number], Complete Results AMB INR Fingerstick AMB INR Fingerstick 3.7 Last Edit by Theresa Philip RN on 03/15/24 11:20 interface delay Assessment & Plan Assessment & Plan (1) Shortness of breath on exertion: Code(s): R06.02 - Shortness of breath Category: Medical Plan: History of shortness of breath with exertion. She underwent cardiac evaluation previously with cardiac catheterization showing normal coronary arteries and normal filling pressures. Last echocardiogram was done 09/21/2020 showing EF 60-65, no valve abnormalities and no regional wall motion abnormalities. She did have a pulmonary function test 06/2023 which showed mild restrictive findings. She does have history of paroxysmal atrial fibrillation which does not seem to contribute. Today she reports her condition has been stable. She does not appear fluid overloaded on examination. She continues Bumex 1 mg daily. Benefits of weight loss and increasing physical activity reviewed with her. (2) Paroxysmal A-fib: Code(s): I48.0 - Paroxysmal atrial fibrillation Category: Medical Plan: History of paroxysmal atrial fibrillation. Currently suppressed with amiodarone. Labs done 09/08/2023 showed AST 19, ALT 17, TSH 1.82. Recent pulmonary function test as above. Restrictive findings most likely related to her morbid obesity. She is on Coumadin for anticoagulation. Discussed use of DOAC and she declines. She follows with the [facility]. No bleeding issues reported. EKG done today showing sinus rhythm with first-degree AV block, rate 60. 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 Considering switch to dronedarone. Will check Holter monitor to evaluate for breakthrough episodes of atrial fibrillation due to reports of heart palpitations. Plan to call her with results and/or med changes. 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 Panel Fast 03/15/24 I48.0 - Paroxysmal atrial fibrillation, R06.02 - Shortness of breath, Z79.01 - intermediate (current) use of anticoagulants Lipid Panel 03/15/24 E66.01 - Morbid (severe) obesity due to excess calories ECG 3 day holter monitor 03/15/24 I48.0 - Paroxysmal atrial fibrillation TSH reflex Free T4 03/15/24 Z51.81 - Encounter for therapeutic drug level monitoring
== END 2024-03-15 15:22 | disposition home or self-care (01) ==
LOC: HO.HCS 14:37
PROVIDERS: PCP Internal Medicine; Visit Provider Nurse Practitioner Family
DX: R06.02 Shortness of breath (principal); I48.0 Paroxysmal atrial fibrillation; Z79.01 Long term (current) use of anticoagulants; G47.33 Obstructive sleep apnea (adult) (pediatric)
CPT/HCPCS: 93010; 99214

== ENCOUNTER → 2024-03-22 09:15 | Outpatient (REF) | payer MEDICARE, SELFPAY ==
--- NOTE | 2024-03-22 09:28 | HM_ITS ---
Conclusion: 1. Patient was monitored for total period of 2 days and 20 hours 2. Baseline was normal sinus rhythm with average heart of 60 beats per minute 3. No significant pauses noted but frequent sinus bradycardia noted with total burden of 50% 4. Rare PACs noted 5. Patient reported 1 event of palpitation correlating with sinus rhythm MTDD
[2024-03-22 09:37] LABS: MANUAL DIFF FLAG NO
[2024-03-22 10:50] LABS: Basophils Percent Auto 0.7 % (0-2); Eosinophils Absolute Auto 0.1 X10*3/uL (0.0-0.4); Eosinophils Percent Auto 2.5 % (0-4); Hematocrit 42.2 % (37.0-47.0); Hemoglobin 14.2 g/dl (12.0-16.0); Imm Gran Abs Auto 0.02 X10*3/uL (0.00-0.03); Imm Gran Pct Auto 0.4 % (0.0-0.4); Lymphocytes Percent Auto 36.3 % (20-40); Mean Corpuscular HGB Conc 33.6 g/dl (31.0-35.0); Mean Corpuscular Hemoglobin 31.1 pg (27.0-33.0); Mean Corpuscular Volume 92.5 fL (80.0-98.0); Mean Platelet Volume 10.9 fL (9.4-12.3); Monocytes Absolute Auto 0.5 X10*3/uL (0.1-1.2); Monocytes Percent Auto 9.1 % (2-11); Neutrophils Absolute Auto 2.9 x10*3/uL (2.0-8.3); Platelet Count 222 X10*3/uL (160-400); Red Blood Count 4.56 X10*6/uL (4.20-5.50); Red Cell Distribution Width 14.2 % (11.0-16.0); White Blood Count 5.6 X10*3/uL (4.8-10.8)
[2024-03-22 11:22] LABS: Alanine Aminotransferase 15 U/L (0-31); Albumin Level 3.9 g/dL (3.5-5.0); Alkaline Phosphatase 109 U/L (39-117); Anion Gap 13 (12-20); Aspartate Amino Transferase 16 U/L (5-31); Bilirubin Total 0.8 mg/dL (0.0-1.0); Blood Urea Nitrogen 22 mg/dL (9-16); Calcium 9.1 mg/dL (8.4-10.2); Carbon Dioxide 28 mmol/L (22-29); Chloride 104 mmol/L (96-108); Cholesterol 211 mg/dL (<200); Estimated Glomerular Filt Rate 49; Glucose Fasting 112 mg/dL (60-99); Sodium 141 mmol/L (135-145); Triglycerides 107 mg/dL (<150)
[2024-03-22 11:33] LABS: TSH reflex Free T4 1.31 uIU/mL (0.32-4.0)
[2024-03-22 11:41] LABS: HDL Cholesterol 47 mg/dL (>40); LDL Cholesterol Calculated 143 mg/dL (<100)
== END ==
LOC: HO.CARD 09:15
PROVIDERS: PCP Internal Medicine; Visit Provider Nurse Practitioner Family
DX: E66.01 Morbid (severe) obesity due to excess calories (principal); I48.0 Paroxysmal atrial fibrillation; R06.02 Shortness of breath; Z51.81 Encounter for therapeutic drug level monitoring; Z79.01 Long term (current) use of anticoagulants
CPT/HCPCS: 36415; 80053; 80061; 84443; 85025; 85610; 93242; 99211

== ENCOUNTER → 2024-03-22 09:28 | Outpatient (BNV) | payer MEDICARE, SELFPAY | PROVIDERS: PCP Internal Medicine; Visit Provider Internal Medicine Cardiovascular Disease | DX: R00.1 Bradycardia, unspecified (principal) | CPT/HCPCS: 93244 ==

== ENCOUNTER 2024-03-22 09:52 | Outpatient (AMB) | payer MEDICARE, SELFPAY ==
--- NOTE | 2024-03-22 10:15 | MHC.OFFVISCO ---
Intake Intake Visit Reasons: Anticoagulation Allergies Sulfa (Sulfonamide Antibiotics) [SULFA(SULFONAMIDE ANTIBIOTICS)] Allergy (Unknown, Verified 03/22/24 10:11) RASH codeine Adverse Reaction (Verified 03/22/24 10:11) Vomiting oxycodone Adverse Reaction (Verified 03/22/24 10:11) Gastrointestinal Upset Medication List - Last Reconciled 03/22/24 by Falguni Marti, RN amiodarone 200 mg PO DAILY ascorbate calcium (vitamin C) 500 mg PO DAILY blood sugar diagnostic ([employer] Ultra Test strips) 1 qd blood-glucose meter ([employer] Ultra2 Meter kit) As directed bumetanide 1 mg (1/2 x 2 mg) PO DAILY cholecalciferol (vitamin D3) 10 mcg PO DAILY diclofenac sodium 1% 2 grams topical QID PRN gabapentin 300 mg PO BID lancets ([employer] Delica Lancets) test blood sugar once a day mecobalamin (vitamin B12) 5,000 mcg PO DAILY multivitamin 1 tab PO DAILY warfarin See Protocol 2.5 mg X4 DAYS/ 5MG X 3 DAYS Nursing Note INR: 2.6- in therapeutic range of 2-3 Medications and supplements reviewed- no changes No changes in health, diet, medications, or supplements, Denies any signs and symptoms of bleeding or bruising or clotting. Bleeding, bruising, clotting discussed Nutritional guidance given -include greens in weekly diet Dose: 5 mg x 3, 2.5mg x 4 F/U INR: 2 weeks Patient verbalizes understanding of instructions given pt had labs today and has holtor monitor for 3 days Anti-Coag Initial Assessment Social Hx Patient Tobacco Use Status: Never used Tobacco alcohol intake: never Coding Level of Care Code Est Patient Level 1 Diagnoses Current use of anticoagulant therapy Z79.01 Assessment & Plan Assessment & Plan (1) Current use of anticoagulant therapy: Code(s): Z79.01 - half-way (current) use of anticoagulants Category: Medical
[2024-03-22 10:16] LABS: Prothrombin Time Whole Bld POC 31.7 sec (11.1-13.5); ~PT, ~INR - Anti Coag Clinic 2.6 (0.9-1.1)
== END 2024-03-22 10:23 | disposition home or self-care (01) ==
LOC: HO.ACS 09:52
PROVIDERS: PCP Internal Medicine; Visit Provider Internal Medicine
DX: Z79.01 Long term (current) use of anticoagulants (principal)

== ENCOUNTER 2024-04-05 10:53 | Outpatient (AMB) | payer MEDICARE, SELFPAY ==
--- NOTE | 2024-04-05 11:00 | MHC.OFFVISCO ---
Intake Intake Visit Reasons: Anticoagulation Allergies Sulfa (Sulfonamide Antibiotics) [SULFA(SULFONAMIDE ANTIBIOTICS)] Allergy (Unknown, Verified 04/05/24 10:54) RASH codeine Adverse Reaction (Verified 04/05/24 10:54) Vomiting oxycodone Adverse Reaction (Verified 04/05/24 10:54) Gastrointestinal Upset Medication List - Last Reconciled 04/05/24 by Falguni Marti RN amiodarone 200 mg PO DAILY ascorbate calcium (vitamin C) 500 mg PO DAILY blood sugar diagnostic ([employer] Ultra Test strips) 1 qd blood-glucose meter ([employer] Ultra2 Meter kit) As directed bumetanide 1 mg (1/2 x 2 mg) PO DAILY cholecalciferol (vitamin D3) 10 mcg PO DAILY diclofenac sodium 1% 2 grams topical QID PRN gabapentin 300 mg PO BID PRN lancets ([employer] Delica Lancets) test blood sugar once a day mecobalamin (vitamin B12) 5,000 mcg PO DAILY multivitamin 1 tab PO DAILY warfarin See Protocol 2.5 mg X4 DAYS/ 5MG X 3 DAYS Nursing Note INR 3.7-?? out of therapeutic range of 2-3 Medications and supplements reviewed Patient status: pt states having vein procedure right leg on 04/08/24- she states no hold on warfarin per md Medications or supplements: no changes, taking mucinex for allergies Diet: appetite same Denies any signs and symptoms of bleeding or clotting or unusual bruising Bleeding, bruising, clotting discussed Nutritional guidance given: eat greens to lower inr Dose: hold warfarin today then cont 5mg x 3, 2.5mg x 4 F/U INR Date : 2 weeks? Patient verbalizing understanding of instructions given. 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
[2024-04-05 11:01] LABS: Prothrombin Time Whole Bld POC 44.8 sec (11.1-13.5); ~PT, ~INR - Anti Coag Clinic 3.7 (0.9-1.1)
== END 2024-04-05 11:19 | disposition home or self-care (01) ==
LOC: HO.ACS 10:53
PROVIDERS: PCP Internal Medicine; Visit Provider Internal Medicine
DX: Z79.01 Long term (current) use of anticoagulants (principal)

== ENCOUNTER → 2024-04-05 10:53 | Outpatient (BNVA) | payer MEDICARE, SELFPAY | PROVIDERS: PCP Internal Medicine; Visit Provider Internal Medicine | DX: I48.0 Paroxysmal atrial fibrillation (principal); Z79.01 Long term (current) use of anticoagulants; Z51.81 Encounter for therapeutic drug level monitoring | CPT/HCPCS: 85610; 99211 ==

== ENCOUNTER 2024-04-12 11:05 | Outpatient (AMB) | payer MEDICARE, SELFPAY ==
[2024-04-12 11:14] LABS: Prothrombin Time Whole Bld POC 39.5 sec (11.1-13.5); ~PT, ~INR - Anti Coag Clinic 3.3 (0.9-1.1)
--- NOTE | 2024-04-12 11:23 | MHC.OFFVISCO ---
Intake Intake Visit Reasons: Anticoagulation Allergies Sulfa (Sulfonamide Antibiotics) [SULFA(SULFONAMIDE ANTIBIOTICS)] Allergy (Unknown, Verified 04/12/24 11:05) RASH codeine Adverse Reaction (Verified 04/12/24 11:05) Vomiting oxycodone Adverse Reaction (Verified 04/12/24 11:05) Gastrointestinal Upset Medication List - Last Reconciled 04/12/24 by Theresa Dominguez, RN amiodarone 200 mg PO DAILY ascorbate calcium (vitamin C) 500 mg PO DAILY blood sugar diagnostic ([employer] Ultra Test strips) 1 qd blood-glucose meter ([employer] Ultra2 Meter kit) As directed bumetanide 1 mg (1/2 x 2 mg) PO DAILY cholecalciferol (vitamin D3) 10 mcg PO DAILY gabapentin 300 mg PO BID PRN lancets ([employer] Delica Lancets) test blood sugar once a day mecobalamin (vitamin B12) 5,000 mcg PO DAILY multivitamin 1 tab PO DAILY warfarin See Protocol 2.5 mg X4 DAYS/ 5MG X 3 DAYS Nursing Note Amb to [facility] feeling well S/P vein closure 04/08 Medications and supplements reviewed No other changes in health, diet, medications, or supplements, Denies any unusual signs and symptoms of bleeding, bruising, or clotting. Sts has some bruising after procedure but nothing large or hard Bleeding, bruising, clotting discussed INR 3.3 today above range, has another vein closure scheduled for tomorrow Dosing plan usual 2.5mg tonight then decrease tomorrow to 2.5 to decrease weekly dosing to 5mg x 2 days (vs 3) and 2.5mg x 5 days (vs 4 days) as pt has been elevated at 25 mg weekly Nutritional guidance given greens tonight then balance greens and reds and be consistent [facility] to [facility] to report INR 3.3, no new orders F/U INR: 1 week Patient verbalizes understanding of instructions given Anti-Coag Initial Assessment Social Hx Patient Tobacco Use Status: Never used Tobacco alcohol intake: never Coding Level of Care Code Est Patient Level 1 Diagnoses Current use of anticoagulant therapy Z79.01 Time Spent (min) 15 Assessment & Plan Assessment & Plan (1) Current use of anticoagulant therapy: Code(s): 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
== END 2024-04-12 11:36 | disposition home or self-care (01) ==
LOC: HO.ACS 11:05
PROVIDERS: PCP Internal Medicine; Visit Provider Internal Medicine
DX: Z79.01 Long term (current) use of anticoagulants (principal)

== ENCOUNTER → 2024-04-12 11:05 | Outpatient (BNVA) | payer MEDICARE, SELFPAY | PROVIDERS: PCP Internal Medicine; Visit Provider Internal Medicine | DX: I48.0 Paroxysmal atrial fibrillation (principal); Z51.81 Encounter for therapeutic drug level monitoring; Z79.01 Long term (current) use of anticoagulants | CPT/HCPCS: 85610; 99211 ==

== ENCOUNTER 2024-04-20 13:05 | Outpatient (AMB) | payer MEDICARE, SELFPAY ==
[2024-04-20 13:13] LABS: Prothrombin Time Whole Bld POC 37.1 sec (11.1-13.5); ~PT, ~INR - Anti Coag Clinic 3.1 (0.9-1.1)
--- NOTE | 2024-04-20 13:21 | MHC.OFFVISCO ---
Intake Intake Visit Reasons: Anticoagulation Allergies Sulfa (Sulfonamide Antibiotics) [SULFA(SULFONAMIDE ANTIBIOTICS)] Allergy (Unknown, Verified 04/20/24 13:08) RASH codeine Adverse Reaction (Verified 04/20/24 13:08) Vomiting oxycodone Adverse Reaction (Verified 04/20/24 13:08) Gastrointestinal Upset Medication List - Last Reconciled 04/20/24 by Mirna Trejo, RN amiodarone 200 mg PO DAILY ascorbate calcium (vitamin C) 500 mg PO DAILY blood sugar diagnostic ([employer] Ultra Test strips) 1 qd blood-glucose meter ([employer] Ultra2 Meter kit) As directed bumetanide 1 mg (1/2 x 2 mg) PO DAILY cholecalciferol (vitamin D3) 10 mcg PO DAILY gabapentin 300 mg PO BID PRN lancets ([employer] Delica Lancets) test blood sugar once a day mecobalamin (vitamin B12) 5,000 mcg PO DAILY multivitamin 1 tab PO DAILY warfarin See Protocol 2.5 mg X4 DAYS/ 5MG X 3 DAYS Nursing Note INR: 3.1 JUST OF therapeutic range S/P VEIN PROCEDURE 04/08/ AND 04/13/24 - LEGS HEALING - STILL A LITTLE SORE 0 RECENTLY HAD ULTRA SOUND DONE THIS AM - AND ALL IS WELL THAT SHE KNOWS OF. Medications and supplements reviewed No changes in health, diet, medications, or supplements, Denies any signs and symptoms of bleeding or bruising or clotting. 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
== END 2024-04-20 13:25 | disposition home or self-care (01) ==
LOC: HO.ACS 13:05
PROVIDERS: PCP Internal Medicine; Visit Provider Internal Medicine
DX: Z79.01 Long term (current) use of anticoagulants (principal)

== ENCOUNTER → 2024-04-20 13:05 | Outpatient (BNVA) | payer MEDICARE, SELFPAY | PROVIDERS: PCP Internal Medicine; Visit Provider Internal Medicine | DX: I48.0 Paroxysmal atrial fibrillation (principal); Z79.01 Long term (current) use of anticoagulants; Z51.81 Encounter for therapeutic drug level monitoring | CPT/HCPCS: 85610; 99211 ==

== ENCOUNTER → 2024-05-14 13:02 | Outpatient (BNVA) | payer MEDICARE, SELFPAY | PROVIDERS: PCP Internal Medicine; Visit Provider Internal Medicine | DX: I48.0 Paroxysmal atrial fibrillation (principal); Z79.01 Long term (current) use of anticoagulants; Z51.81 Encounter for therapeutic drug level monitoring | CPT/HCPCS: 85610; 99211 ==

== ENCOUNTER 2024-05-26 13:02 | Outpatient (AMB) | payer MEDICARE, SELFPAY ==
[2024-05-26 13:12] LABS: Prothrombin Time Whole Bld POC 47.7 sec (11.1-13.5)
--- NOTE | 2024-05-26 13:19 | MHC.OFFVISCO ---
Intake Intake Visit Reasons: Anticoagulation Allergies Sulfa (Sulfonamide Antibiotics) [SULFA(SULFONAMIDE ANTIBIOTICS)] Allergy (Unknown, Verified 05/26/24 13:07) RASH codeine Adverse Reaction (Verified 05/26/24 13:07) Vomiting oxycodone Adverse Reaction (Verified 05/26/24 13:07) Gastrointestinal Upset Medication List - Last Reconciled 05/26/24 by Rachael Dunlap, RN amiodarone 200 mg PO DAILY ascorbate calcium (vitamin C) 500 mg PO DAILY blood sugar diagnostic ([employer] Ultra Test strips) 1 qd blood-glucose meter ([employer] Ultra2 Meter kit) As directed bumetanide 1 mg (1/2 x 2 mg) PO DAILY cholecalciferol (vitamin D3) 10 mcg PO DAILY gabapentin 300 mg PO BID PRN lancets ([employer] Delica Lancets) test blood sugar once a day mecobalamin (vitamin B12) 5,000 mcg PO DAILY multivitamin 1 tab PO DAILY warfarin See Protocol 2.5 mg X4 DAYS/ 5MG X 3 DAYS Nursing Note PT. HAS HAD MORE FRUIT THAN USUAL RECENTLY. NO CP,SOB,DIET/MED CHANGES,FALLS OR SX OF BLEEDING. HOLD WARFARIN TODAY THEN RESUME PRESENT DOSE AND FOLLOW-UP IN 2 WEEKS. GOOD UNDERSTANDING OF DOSING INSTR. Anti-Coag Initial Assessment Social Hx Patient Tobacco Use Status: Never used Tobacco alcohol intake: never Coding Level of Care Code Est Patient Level 1 Diagnoses Current use of anticoagulant therapy Z79.01 Assessment & Plan Assessment & Plan (1) Current use of anticoagulant therapy: Code(s): Z79.01 - assisted (current) use of anticoagulants Category: Medical
== END 2024-05-26 13:22 | disposition home or self-care (01) ==
LOC: HO.ACS 13:02
PROVIDERS: PCP Internal Medicine; Visit Provider Internal Medicine
DX: Z79.01 Long term (current) use of anticoagulants (principal)

== ENCOUNTER → 2024-05-26 13:02 | Outpatient (BNVA) | payer MEDICARE, SELFPAY | PROVIDERS: PCP Internal Medicine; Visit Provider Internal Medicine | DX: I48.0 Paroxysmal atrial fibrillation (principal); Z51.81 Encounter for therapeutic drug level monitoring; Z79.01 Long term (current) use of anticoagulants | CPT/HCPCS: 85610; 99211 ==

== ENCOUNTER 2024-06-09 13:06 | Outpatient (AMB) | payer MEDICARE, SELFPAY ==
[2024-06-09 13:31] LABS: Prothrombin Time Whole Bld POC 27.6 sec (11.1-13.5); ~PT, ~INR - Anti Coag Clinic 2.3 (0.9-1.1)
--- NOTE | 2024-06-09 13:46 | MHC.OFFVISCO ---
Intake Intake Visit Reasons: Anticoagulation Allergies Sulfa (Sulfonamide Antibiotics) [SULFA(SULFONAMIDE ANTIBIOTICS)] Allergy (Unknown, Verified 06/09/24 13:27) RASH codeine Adverse Reaction (Verified 06/09/24 13:27) Vomiting oxycodone Adverse Reaction (Verified 06/09/24 13:27) Gastrointestinal Upset Medication List - Last Reconciled 06/09/24 by Rachael Dunlap RN amiodarone 200 mg PO DAILY ascorbate calcium (vitamin C) 500 mg PO DAILY blood sugar diagnostic ([employer] Ultra Test strips) 1 qd blood-glucose meter ([employer] Ultra2 Meter kit) As directed bumetanide 1 mg (1/2 x 2 mg) PO DAILY cholecalciferol (vitamin D3) 10 mcg PO DAILY gabapentin 300 mg PO BID PRN lancets ([employer] Delica Lancets) test blood sugar once a day mecobalamin (vitamin B12) 5,000 mcg PO DAILY multivitamin 1 tab PO DAILY warfarin See Protocol 2.5 mg X4 DAYS/ 5MG X 3 DAYS Nursing Note NO CP,SOB,DIET/MED CHANGES,FALLS OR SX OF BLEEDING. CONTINUE PRESERNT DOSE AND FOLLOW-UP IN 2 WEEKS. GOOD UNDERSTANDING OF DOSING INSTR. 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
--- NOTE | 2024-06-09 13:46 | MHC.OFFVISCO ---
Intake Intake Visit Reasons: Anticoagulation Allergies Sulfa (Sulfonamide Antibiotics) [SULFA(SULFONAMIDE ANTIBIOTICS)] Allergy (Unknown, Verified 06/09/24 13:27) RASH codeine Adverse Reaction (Verified 06/09/24 13:27) Vomiting oxycodone Adverse Reaction (Verified 06/09/24 13:27) Gastrointestinal Upset Medication List - Last Reconciled 06/09/24 by Rachael Dunlap RN amiodarone 200 mg PO DAILY ascorbate calcium (vitamin C) 500 mg PO DAILY blood sugar diagnostic ([employer] Ultra Test strips) 1 qd blood-glucose meter ([employer] Ultra2 Meter kit) As directed bumetanide 1 mg (1/2 x 2 mg) PO DAILY cholecalciferol (vitamin D3) 10 mcg PO DAILY gabapentin 300 mg PO BID PRN lancets ([employer] Lancets) test blood sugar once a day mecobalamin (vitamin B12) 5,000 mcg PO DAILY multivitamin 1 tab PO DAILY warfarin See Protocol 2.5 mg X4 DAYS/ 5MG X 3 DAYS Nursing Note NO CP,SOB,DIET/MED CHANGES,FALLS OR SX OF BLEEDING. CONTINUE PRESERNT DOSE AND FOLLOW-UP IN 2 WEEKS. GOOD UNDERSTANDING OF DOSING INSTR. 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
== END 2024-06-09 13:47 | disposition home or self-care (01) ==
LOC: HO.ACS 13:06
PROVIDERS: PCP Internal Medicine; Visit Provider Internal Medicine
DX: Z79.01 Long term (current) use of anticoagulants (principal)

== ENCOUNTER → 2024-06-09 13:06 | Outpatient (BNVA) | payer MEDICARE, SELFPAY | PROVIDERS: PCP Internal Medicine; Visit Provider Internal Medicine | DX: I48.0 Paroxysmal atrial fibrillation (principal); Z79.01 Long term (current) use of anticoagulants; Z51.81 Encounter for therapeutic drug level monitoring | CPT/HCPCS: 85610; 99211 ==

== ENCOUNTER 2024-06-23 13:26 | Outpatient (AMB) | payer MEDICARE, SELFPAY ==
--- NOTE | 2024-06-23 13:32 | MHC.OFFVISCO ---
Intake Intake Visit Reasons: Anticoagulation Allergies Sulfa (Sulfonamide Antibiotics) [SULFA(SULFONAMIDE ANTIBIOTICS)] Allergy (Unknown, Verified 06/23/24 13:27) RASH codeine Adverse Reaction (Verified 06/23/24 13:27) Vomiting oxycodone Adverse Reaction (Verified 06/23/24 13:27) Gastrointestinal Upset Medication List - Last Reconciled 06/23/24 by Falguni Marti RN amiodarone 200 mg PO DAILY ascorbate calcium (vitamin C) 500 mg PO DAILY blood sugar diagnostic ([employer] Ultra Test strips) 1 qd blood-glucose meter ([employer] Ultra2 Meter kit) As directed bumetanide 1 mg (1/2 x 2 mg) PO DAILY cholecalciferol (vitamin D3) 10 mcg PO DAILY gabapentin 300 mg PO BID PRN lancets ([employer] Delica Lancets) test blood sugar once a day mecobalamin (vitamin B12) 5,000 mcg PO DAILY multivitamin 1 tab PO DAILY warfarin See Protocol 2.5 mg X4 DAYS/ 5MG X 3 DAYS Nursing Note INR: 2.8- in therapeutic range of 2-3 Medications and supplements reviewed No changes in health, diet, medications, or supplements, Denies any signs and symptoms of bleeding or bruising or clotting. Bleeding, bruising, clotting discussed - pt states small bruise to abd- enc to report any further bruising Nutritional guidance given Dose: 5mg x 2, 2.5mg x 5 F/U INR: 3 weeks Patient verbalizes understanding of instructions given Anti-Coag Initial Assessment Social Hx Patient Tobacco Use Status: Never used Tobacco alcohol intake: never Coding Level of Care Code Est Patient Level 1 Diagnoses Current use of anticoagulant therapy Z79.01 Results AMB INR Fingerstick AMB INR Fingerstick 2.8 Last Edit by Falguni Marti RN on 06/23/24 13:35 interface delay Assessment & Plan Assessment & Plan (1) Current use of anticoagulant therapy: Code(s): 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
[2024-06-23 13:43] LABS: Prothrombin Time Whole Bld POC 33.9 sec (11.1-13.5); ~PT, ~INR - Anti Coag Clinic 2.8 (0.9-1.1)
== END 2024-06-23 13:48 | disposition home or self-care (01) ==
LOC: HO.ACS 13:26
PROVIDERS: PCP Internal Medicine; Visit Provider Internal Medicine
DX: Z79.01 Long term (current) use of anticoagulants (principal)

== ENCOUNTER → 2024-06-23 13:26 | Outpatient (BNVA) | payer MEDICARE, SELFPAY | PROVIDERS: PCP Internal Medicine; Visit Provider Internal Medicine | DX: I48.0 Paroxysmal atrial fibrillation (principal); Z79.01 Long term (current) use of anticoagulants; Z51.81 Encounter for therapeutic drug level monitoring | CPT/HCPCS: 85610; 99211 ==

== ENCOUNTER 2024-07-14 12:54 | Outpatient (AMB) | payer MEDICARE, SELFPAY ==
--- NOTE | 2024-07-14 13:11 | MHC.OFFVISCO ---
Intake Intake Visit Reasons: Anticoagulation Allergies Sulfa (Sulfonamide Antibiotics) [SULFA(SULFONAMIDE ANTIBIOTICS)] Allergy (Unknown, Verified 07/14/24 13:04) RASH codeine Adverse Reaction (Verified 07/14/24 13:04) Vomiting oxycodone Adverse Reaction (Verified 07/14/24 13:04) Gastrointestinal Upset Medication List - Last Reconciled 07/14/24 by Falguni Marti RN amiodarone 200 mg PO DAILY ascorbate calcium (vitamin C) 500 mg PO DAILY blood sugar diagnostic ([employer] Ultra Test strips) 1 qd blood-glucose meter ([employer] Ultra2 Meter kit) As directed bumetanide 1 mg (1/2 x 2 mg) PO DAILY cholecalciferol (vitamin D3) 10 mcg PO DAILY gabapentin 300 mg PO BID PRN lancets ([employer] Delica Lancets) test blood sugar once a day mecobalamin (vitamin B12) 5,000 mcg PO DAILY multivitamin 1 tab PO DAILY warfarin See Protocol 2.5 mg X4 DAYS/ 5MG X 3 DAYS Nursing Note INR 4.4-? out of therapeutic range of 2-3 Medications and supplements reviewed Patient status: pt states s/p fall yesterday, injured back and left knee, amb with cane- pt enc to go to ed or urgent care if nec Medications or supplements: no changes in medications, taking aleve prn- aware of bleed risks- enc she should not take Diet: appetite good Denies any signs and symptoms of bleeding or clotting or unusual bruising Bleeding, bruising, clotting discussed - aware bleed risk Nutritional guidance given: eat greens to lower inr, no reds Dose: hold warfarin today, take 2.5mg tomm F/U INR Date : friday07/16/24? Patient verbalizing understanding of instructions given. pt had vein procedure on 06/28/24 with no hold of warfarin, another vein proc on friday07/16/24 at [facility]- t/c to them to report elev inr and will retest prior to proc. 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
[2024-07-15 09:49] LABS: Prothrombin Time Whole Bld POC 52.4 sec (11.1-13.5); ~PT, ~INR - Anti Coag Clinic 4.4 (0.9-1.1)
== END 2024-07-14 14:13 | disposition home or self-care (01) ==
LOC: HO.ACS 12:54
PROVIDERS: PCP Internal Medicine; Visit Provider Internal Medicine
DX: Z79.01 Long term (current) use of anticoagulants (principal)

== ENCOUNTER → 2024-07-14 12:54 | Outpatient (BNVA) | payer MEDICARE, SELFPAY | PROVIDERS: PCP Internal Medicine; Visit Provider Internal Medicine | DX: I48.0 Paroxysmal atrial fibrillation (principal); Z79.01 Long term (current) use of anticoagulants; Z51.81 Encounter for therapeutic drug level monitoring | CPT/HCPCS: 85610; 99211 ==

== ENCOUNTER 2024-07-16 11:27 | Outpatient (AMB) | payer MEDICARE, SELFPAY ==
[2024-07-16 11:41] LABS: Prothrombin Time Whole Bld POC 32.2 sec (11.1-13.5); ~PT, ~INR - Anti Coag Clinic 2.7 (0.9-1.1)
--- NOTE | 2024-07-16 12:25 | MHC.OFFVISCO ---
Intake Intake Visit Reasons: Anticoagulation Allergies Sulfa (Sulfonamide Antibiotics) [SULFA(SULFONAMIDE ANTIBIOTICS)] Allergy (Unknown, Verified 07/16/24 12:11) RASH codeine Adverse Reaction (Verified 07/16/24 12:11) Vomiting oxycodone Adverse Reaction (Verified 07/16/24 12:11) Gastrointestinal Upset Medication List - Last Reconciled 07/16/24 by Theresa Philip, RN amiodarone 200 mg PO DAILY ascorbate calcium (vitamin C) 500 mg PO DAILY blood sugar diagnostic ([employer]Touch Ultra Test strips) 1 qd blood-glucose meter ([employer]Touch Ultra2 Meter kit) As directed bumetanide 1 mg (1/2 x 2 mg) PO DAILY cholecalciferol (vitamin D3) 10 mcg PO DAILY gabapentin 300 mg PO BID PRN lancets ([employer] LimitedTouch Delica Lancets) test blood sugar once a day mecobalamin (vitamin B12) 5,000 mcg PO DAILY multivitamin 1 tab PO DAILY warfarin See Protocol 2.5 mg X4 DAYS/ 5MG X 3 DAYS Nursing Note Pt to [facility] in W/C with niece who drove her. Pt fell 3 days ago on 07/13/24 and reports she hurt her back and left leg and not able to walk. She is using a cane for transfer only. States the left leg did not swell up until 24 hours or more. She was able to come to [facility] on 07/14 at which time her INR was 4.4 and her dose for that day was held with 1/2 dose on 07/15. Today, her left leg is very edematous where she cannot bend her knee. Ecchymosis is present. Small area noted on right leg pt states she hit on something as she fell. INR: 2.7 in therapeutic range of 2-3 Medications and supplements reviewed No changes in diet, medications, or supplements, Nutritional guidance given Dose: 2.5mg X5 days and 5mg X 2 days (Sun-Letty) F/U INR: 1 week Patient verbalizes understanding of instructions given Anti-Coag Initial Assessment Social Hx Patient Tobacco Use Status: Never used Tobacco alcohol intake: never Coding Level of Care Code Est Patient Level 1 Diagnoses Current use of anticoagulant therapy Z79.01 Results AMB INR Fingerstick AMB INR Fingerstick 2.7 Last Edit by Theresa Philip RN on 07/16/24 11:36 interface delay Assessment & Plan Assessment & Plan (1) Current use of anticoagulant therapy: Code(s): Z79.01 - nursing home (current) use of anticoagulants Category: Medical
== END 2024-07-16 13:00 | disposition home or self-care (01) ==
LOC: HO.ACS 11:27
PROVIDERS: PCP Internal Medicine; Visit Provider Internal Medicine
DX: Z79.01 Long term (current) use of anticoagulants (principal)

== ENCOUNTER → 2024-07-16 11:27 | Outpatient (BNVA) | payer MEDICARE, SELFPAY | PROVIDERS: PCP Internal Medicine; Visit Provider Internal Medicine ==

== ENCOUNTER 2024-07-16 11:47 | Emergency (ER) | payer MEDICARE, SELFPAY ==
--- NOTE | ~2024-07-16 | XR_ITS ---
EXAMINATION: XR KNEE, LEFT CLINICAL INFORMATION: Fall, pain. COMPARISON: Radiograph left knee 08/09/2021. TECHNIQUE: Four views of the left knee. FINDINGS: No acute fracture or dislocation. Progression of joint space narrowing, subcortical sclerosis and marginal osteophytes in the medial and patellofemoral compartments since 2020. No significant joint effusion. Marked diffuse soft tissue swelling. XR/XR knee LT 3V IMPRESSION: 1. No acute fracture or dislocation. 2. Worsened degenerative osteoarthritis in the medial and patellofemoral compartments since 2020. 3. Significant diffuse soft tissue swelling, recommend correlation with physical examination. Electronically signed by: Iqra Parra MD 07/16/2024 02:22 PM EDT
--- NOTE | ~2024-07-16 | CT_ITS ---
EXAMINATION: CT KNEE WITHOUT CONTRAST, LEFT CLINICAL INFORMATION: Unable to weight-bear COMPARISON: X-ray left knee 07/16/2024 TECHNIQUE: Axial imaging. Sagittal and coronal reconstructions. This CT examination was performed using dose optimization techniques as appropriate, variously including the following: *Automated exposure control *Adjustment of mA and/or kV according to patient size (this includes techniques or standardized protocols for targeted exams where dose is matched to indication/reason for exam; i.e. extremities or head) *Use of iterative reconstruction technique DLP: 182 mGy-cm FINDINGS: Bones are osteopenic. Alignment is anatomic. No acute fracture is identified. Joint space narrowing, marginal osteophytes in the medial and patellofemoral compartment. Subchondral cysts in the patella. Small effusion. Small Perez's cyst. There is soft tissue swelling and subcutaneous edema. Varicose veins present. There is a focus in the anterior/ medial subcutaneous tissues of the proximal tibia measuring 1.7 x 3.3 x 5.2 cm (AP, transverse, craniocaudal). Hounsfield measurements are 56, greater than the muscle. Differential considerations include hematoma. Quadriceps and patellar tendon are grossly intact. There is quadriceps tendon insertion enthesopathy. There is limited evaluation of the intra-articular soft tissues on CT. No measurable muscle tear is appreciated, however evaluation is limited by CT.. CT/CT knee LT wo IV con IMPRESSION: 1. No acute fracture plane is identified in the visualized osseous structures. Osteopenia limits evaluation. If there is clinical concern for radiographically occult fracture or intra-articular arrangement, consider further evaluation with MRI. 2. Mild-moderate medial and patellofemoral compartment arthritis. 3. Small effusion. Small Perez's cyst. 4. Focus in the anteromedial subcutaneous tissues of the proximal tibia measuring 1.7 x 3.3 x 5.2 cm. Hounsfield measurements 56. This is incompletely evaluated on MRI. Differential considerations include hematoma. Clinically correlate. Electronically signed by: Jose Bryant MD 07/16/2024 05:21 PM EDT
[2024-07-16 12:09] VITALS: BMI 36.3
--- NOTE | 2024-07-16 12:12 | ED.FALL ---
HPI - Fall General Chief Complaint: Fall Stated Complaint: Fall swollen left leg on coumadin Time Seen by Provider: 07/16/24 12:04 Source: patient Mode of arrival: ambulatory Limitations: no limitations History of Present Illness ED Provider: Dr. Amber Oh HPI Narrative: Patient comes to the emergency room complaining of left knee pain. Three days ago, patient states that she tripped and fell on her knees. patient states that she has been able to walk for the last few days but it is gradually getting more painful. Patient complaining of oozing in the anterior aspect of the legs. Patient states that now she has trouble bending the left knee. Patient is on Coumadin, patient went to the clinic today to checked her INR, which was 2.7. Patient states that she did not hit her head or lose consciousness. Patient denies any other injuries other than her knees. Related Data Home Medications ?Medication ?Instructions ?Recorded ?Confirmed ascorbate calcium (vitamin C) 500 500 mg PO DAILY 04/06/21 07/16/24 mg tablet cholecalciferol (vitamin D3) 10 10 mcg PO DAILY 04/06/21 07/16/24 mcg (400 unit) capsule mecobalamin (vitamin B12) 5,000 5,000 mcg PO DAILY 04/06/21 07/16/24 mcg lozenge multivitamin 1 tab PO DAILY 04/06/21 07/16/24 warfarin 5 mg tablet 2.5 mg PO .COMPLEX 02/12/24 07/16/24 gabapentin 300 mg capsule 300 mg PO BID PRN 04/05/24 07/16/24 Previous Rx's ?Medication ?Instructions ?Recorded blood sugar diagnostic ([employer]Touch #100 ea 06/04/22 Ultra Test strips) blood-glucose meter ([employer]Touch #1 ea 06/04/22 Ultra2 Meter kit) lancets 33 gauge (OneTouch Delica #100 ea 06/04/22 Lancets) amiodarone 200 mg tablet 200 mg PO DAILY #90 tabs 09/29/23 bumetanide 2 mg tablet 1 mg (1/2 x 2 mg) PO DAILY #90 tabs 12/02/23 Allergies Allergy/AdvReac Type Severity Reaction Status Date / Time Sulfa (Sulfonamide Allergy Unknown RASH Verified 07/16/24 12:11 Antibiotics) [SULFA(SULFONAMIDE ANTIBIOTICS)] codeine AdvReac Vomiting Verified 07/16/24 12:11 oxycodone AdvReac Gastrointestinal Verified 07/16/24 12:11 Upset Review of Systems Review of Systems: Constitutional : No Weight loss, No Fever, No Chills, No Night Sweats, No Fatigue, No Malaise ENT/Mouth : No Hearing loss, No Ear Pain, No Nasal Congestion, No Sinus Pain, No Hoarseness, No sore throat, No Rhinorrhea, No Swallowing Difficulty Eyes: No Eye Pain, No Swelling, No Redness, No Foreign Body, No Discharge, No Vision Changes Cardiovascular : No Chest Pain, No SOB, No Dyspnea on Exertion, No Orthopnea, No Edema, No Palpitations Respiratory : No Cough, No Sputum, No Wheezing, No Smoke Exposure, No Dyspnea Gastrointestinal : No Nausea, No Vomiting, No Diarrhea, No Constipation, No abdominal Pain, No Hematochezia, No Melena Genitourinary : no irregular bleeding, No Dysuria, No Urinary Frequency, No Hematuria, No Urinary Incontinence, No Urgency, No Flank Pain, No Urinary Flow Changes, No Hesitancy Musculoskeletal : complaining of bilateral knee pain worse on the left, No Myalgias, No Joint Swelling Skin : No Skin Lesions, No rash Neuro : No Weakness, No Numbness, No Paresthesias, No Loss of Consciousness, No Dizziness, No Headache Psych : No Anxiety/Panic, No Depression, No SI/HI/AH/VH, No Social Issues, Heme/Lymph: No Bruising, No Bleeding,No Lymphadenopathy Endocrine : No Polyuria, No Polydipsia, No Temperature Intolerance PMFSH Past Medical History Medical History Right shoulder pain Acute pain of left wrist Impaired fasting glucose Shortness of breath on exertion Vaccine refused by patient Elevated brain natriuretic peptide (BNP) level Anemia Hyperkalemia Morbid obesity Iliotibial band syndrome Lumbosacral radiculopathy due to osteoarthritis of spine History of deep vein thrombophlebitis of lower extremity Positive ALVIN (antinuclear antibody) CKD (chronic kidney disease) stage 3, GFR 30-59 ml/min Knee pain Osteoarthritis of right ankle and foot Lower back pain Ankle pain, right Postmenopausal Obesity Hip pain Venous insufficiency of both lower extremities Diverticulitis Peripheral vascular complication of surgical procedure Peripheral vascular disease Hyperlipidemia DVT (deep venous thrombosis) Diastolic heart failure Paroxysmal A-fib BERE (obstructive sleep apnea) Surgical History History of lithotripsy History of cardiac cath Hx of vascular surgery H/O hysterectomy for benign disease Family History Family History Father Emphysema, unspecified Mother No problems noted. Brother Atrial fibrillation Sister Atrial fibrillation Sister Breast cancer Social History Social History Household Members: None Housing: Apartment Do you presently have visiting nurse or other home services: No Alcohol intake: never Patient Tobacco Use Status: Never used Tobacco Smoked in Last 30 Days: No Use of substances other than those prescribed or required for medical reasons: No Advance Directives: No Advance Directives Information Provided: Yes Do you have a plan to hurt others: No Plan service: No Current occupational status: retired and disabled Current occupation: rt handed Cognitive needs: No Hearing needs: No Vision needs: No Physical Exam Vital Signs: Vital Signs: Last Vital Signs Temp 98.2 F 07/16/24 15:24 Pulse 60 07/16/24 15:24 Resp 16 07/16/24 15:24 BP 137/63 07/16/24 15:24 Pulse Ox 99 07/16/24 15:24 O2 Del Method Room Air 07/16/24 15:24 BMI result Body Mass Index 36.3 Const: Other: Appearance: Alert. Oriented X3. No acute distress. Eyes: Pupils equal, round and reactive to light. ENT: Pharynx normal. Neck: Normal inspection. Neck supple. No lymph nodes noted. No crepitus CVS: Normal heart rate and rhythm. Pulses normal. Normal S1 and S2 Respiratory: No respiratory distress. Breath sounds normal. No Wheezing. No rales Abdomen: Soft and nontender. No rigidity. No distention. Skin: Skin warm and dry. Normal skin color. Normal skin turgor. ecchymosis on bilateral lower extremities from the knees down, more marked on the left knee. no significant swelling of suspicion for active extravasation Extremities: Patient has ecchymosis on the left knee on the anterior aspect, no bruising on the posterior aspect of the leg Neuro: Oriented X 3. No motor deficit. No sensory deficit. Moving all extremities. No slurred speech. CN 2 through 12 grossly intact Psych: calm, cooperative, normal affect Limitations: ambulation with walker Course Course Course Narrative: - patient's INR therapeutic 2.7 - we will start with x-rays. At this time, on physical exam she does have bruising, no significant swelling, no suspicion for active extravasation Medications Administered Discontinued Medications Generic Name Dose Route Start Last Admin Trade Name Betsey PRN Reason Stop Dose Admin Acetaminophen 975 mg 07/16/24 12:13 07/16/24 12:51 Acetaminophen 325 Mg Tablet PO 07/16/24 12:14 975 mg ONCE ONE Administration Acetaminophen 975 mg 07/16/24 18:29 07/16/24 18:34 Acetaminophen 325 Mg Tablet PO 07/16/24 18:30 975 mg ONCE ONE Administration Medical Decision Making Medical Decision Making [facility] Narrative: . Patient's labs from earlier today show an INR of 2.7. - The x-rays do not show any obvious fracture. However, when we tried to have the patient well, patient states that she can not bear any weight. - A CT scan was ordered, there is no fracture, patient has small effusion - I discussed with the patient that if she can not walk, we can provide her with a PT / case management consult. Patient declined. Patient states that she will go home and her son can take care of her. - Patient declined any medication stronger than Tylenol. Patient takes Coumadin, can not take NSAIDs. Patient states that she does not want a prescription with narcotics. Patient states that she will take only Tylenol as needed. Differential Diagnosis Differential Diagnoses: The differential diagnosis associated with the presentation includes ( Patellar fracture, knee dislocation, hemarthrosis, effusion) Admission/Observation Consideration of admission/observation: Escalation of care including admission/observation considered ( PT case management /physician observation offered) Independent Interpretation I performed an independent interpretation of an: Plain X-Ray and CT Scan Radiology Impression Discussion of test interpretation with radiology: I have reviewed the radiologist's reading. Radiologist Impression: IMPRESSION: 1. No acute fracture plane is identified in the visualized osseous structures. Osteopenia limits evaluation. If there is clinical concern for radiographically occult fracture or intra-articular arrangement, consider further evaluation with MRI. 2. Mild-moderate medial and patellofemoral compartment arthritis. 3. Small effusion. Small Perez's cyst. 4. Focus in the anteromedial subcutaneous tissues of the proximal tibia measuring 1.7 x 3.3 x 5.2 cm. Hounsfield measurements 56. This is incompletely evaluated on MRI. Differential considerations include hematoma. Clinically correlate. IMPRESSION: 1. No acute fracture or dislocation. 2. Worsened degenerative osteoarthritis in the medial and patellofemoral compartments since 2020. 3. Significant diffuse soft tissue swelling, recommend correlation with physical examination. Critical Care Time Critical Care Time Critical Care Time: Yes Total Critical Care Time: 30 Attestation: I have personally provided critical care time. Time includes review of lab data, radiology results, discussion with consultants, and monitoring for potential decompensation. Intervention performed as documented. Discharge Plan Discharge Clinical Impression: Fall, Contusion of knee Patient Disposition: Home, Self-Care Instructions: Contusion in Adults (ED), Fall Prevention (ED) Additional Instructions: Please follow-up with your primary care physician tomorrow. If you have any worsening or new symptoms, please return to the emergency room or call 911 Prescriptions: No Action (DME) blood-glucose meter [OneTouch Ultra2 Meter] Kit See Rx Instructions .Route Qty: 1 0RF Rx Instructions: As directed (DME) lancets [OneTouch Delica Lancets] 33 gauge misc See Rx Instructions .Route Qty: 100 3RF Rx Instructions: test blood sugar once a day (DME) OneTouch Ultra Test Strip See Rx Instructions .Route Qty: 100 4RF Rx Instructions: 1 qd amiodarone 200 mg tablet 200 mg PO DAILY Qty: 90 3RF bumetanide 2 mg tablet 1 mg PO DAILY Qty: 90 1RF multivitamin Tablet 1 tab PO DAILY ascorbate calcium (vitamin C) 500 mg tablet 500 mg PO DAILY mecobalamin (vitamin B12) 5,000 mcg lozenge 5,000 mcg PO DAILY Rx Instructions: allow to dissolve in mouth OR may chew lightly before swallowing cholecalciferol (vitamin D3) 10 mcg (400 unit) capsule 10 mcg PO DAILY gabapentin 300 mg capsule 300 mg PO BID PRN warfarin 5 mg tablet 2.5 mg PO .COMPLEX Protocol: Dose Management Condition: Friday (Week One) Dose/Route: 5 mg Instruction: 1 x 5 mg tablet Condition: Friday Dose/Route: 2.5 mg Instruction: 0.5 x 5 mg tablets Condition: Friday Dose/Route: 2.5 mg Instruction: 0.5 x 5 mg tablets Condition: Friday Dose/Route: 2.5 mg Instruction: 0.5 x 5 mg tablets Condition: Dose/Route: 5 mg Instruction: 1 x 5 mg tablet Condition: Friday Dose/Route: 2.5 mg Instruction: 0.5 x 5 mg tablets Condition: Friday Dose/Route: 2.5 mg Instruction: 0.5 x 5 mg tablets Condition: Friday (Week Two) Dose/Route: 5 mg Instruction: 1 x 5 mg tablet Condition: Friday Dose/Route: 2.5 mg Instruction: 0.5 x 5 mg tablets Condition: Friday Dose/Route: 2.5 mg Instruction: 0.5 x 5 mg tablets Condition: Friday Dose/Route: 2.5 mg Instruction: 0.5 x 5 mg tablets Condition: Dose/Route: 5 mg Instruction: 1 x 5 mg tablet Condition: Friday Dose/Route: 2.5 mg Instruction: 0.5 x 5 mg tablets Condition: Friday Dose/Route: 2.5 mg Instruction: 0.5 x 5 mg tablets Protocol Text: Adjustment Start Date: Friday07/16/24 INR Value: 2.7 INR Date: 07/16/24 Recheck Date: 07/23/24 Rx Instructions: 2.5 mg X4 DAYS/ 5MG X 3 DAYS Print Language: Citizen Of [place]
[2024-07-16 12:16] VITALS: BP 139/68; PULSE 60; RESP 18; TEMP 36.9; O2SAT 96
[2024-07-16] MEDS: Acetaminophen 325 MG TABLET 975 MG PO ×2 (12:51→18:34)
[2024-07-16 15:24] VITALS: BP 137/63; PULSE 60; RESP 16; TEMP 36.8; O2SAT 99
[2024-07-16 19:40] VITALS: BP 128/64; PULSE 55; RESP 18; O2SAT 95
[2024-07-16 20:00] VITALS: BP 128/64; PULSE 55; RESP 18; TEMP 36.7; O2SAT 95
== END 2024-07-16 20:01 | disposition home or self-care (01) ==
PROVIDERS: Emergency Provider Emergency Medicine; PCP Internal Medicine
DX: S80.02XA Contusion of left knee, initial encounter (principal); W01.0XXA Fall on same level from slipping, tripping and stumbling without subsequent striking against object, initial encounter; M71.22 Synovial cyst of popliteal space [Baker], left knee; M25.462 Effusion, left knee; M25.562 Pain in left knee; I10 Essential (primary) hypertension; E78.5 Hyperlipidemia, unspecified; I48.0 Paroxysmal atrial fibrillation; Z79.01 Long term (current) use of anticoagulants; Y93.9 Activity, unspecified; Y92.9 Unspecified place or not applicable; Y99.9 Unspecified external cause status
CPT/HCPCS: 73562; 73700; 85610; 99211; 99284

== ENCOUNTER 2024-07-23 13:06 | Outpatient (AMB) | payer MEDICARE, SELFPAY ==
[2024-07-23 13:24] LABS: Prothrombin Time Whole Bld POC 30.1 sec (11.1-13.5); ~PT, ~INR - Anti Coag Clinic 2.5 (0.9-1.1)
--- NOTE | 2024-07-23 13:40 | MHC.OFFVISCO ---
Intake Intake Visit Reasons: Anticoagulation Allergies Sulfa (Sulfonamide Antibiotics) [SULFA(SULFONAMIDE ANTIBIOTICS)] Allergy (Unknown, Verified 07/23/24 13:14) RASH codeine Adverse Reaction (Verified 07/23/24 13:14) Vomiting oxycodone Adverse Reaction (Verified 07/23/24 13:14) Gastrointestinal Upset Medication List - Last Reconciled 07/23/24 by Mirna Trejo RN amiodarone 200 mg PO DAILY ascorbate calcium (vitamin C) 500 mg PO DAILY blood sugar diagnostic ([employer] Ultra Test strips) 1 qd blood-glucose meter ([employer] Ultra2 Meter kit) As directed bumetanide 1 mg (1/2 x 2 mg) PO DAILY cholecalciferol (vitamin D3) 10 mcg PO DAILY gabapentin 300 mg PO BID lancets ([employer] Delica Lancets) test blood sugar once a day mecobalamin (vitamin B12) 5,000 mcg PO DAILY multivitamin 1 tab PO DAILY warfarin See Protocol 2.5 mg X4 DAYS/ 5MG X 3 DAYS Nursing Note INR: 2.5 in therapeutic range Medications and supplements reviewed- taking prn tylenol for pain s/p fall 10 days ago- last time pt here she was brought to the ER- no findings after xray and CT scan - she still has bruising pain and swelling, able to put compression stocking on, sitll c/o back pain not subsiding - she was enc ER again today to r/o dvt - she is refusing at this time, she states she has a PC f/u next week, Denies any signs and symptoms of bleeding or bruising or clotting. Bleeding, bruising, clotting discussed Nutritional guidance given - keep eating a mix of fruits and vegtetables Dose: keep same dose for now 5mg x 2 days/ 2.5g x 5days F/U INR: 1 week Patient verbalizes understanding of instructions given Anti-Coag Initial Assessment Social Hx Patient Tobacco Use Status: Never used Tobacco alcohol intake: never Coding Level of Care Code Est Patient Level 1 Diagnoses Current use of anticoagulant therapy Z79.01 Results AMB INR Fingerstick AMB INR Fingerstick 2.4 Last Edit by Mirna Trejo RN on 07/23/24 13:24 manual entry AMB INR Fingerstick AMB INR Fingerstick 2.5 Last Edit by Mirna Trejo RN on 07/23/24 13:25 Assessment & Plan Assessment & Plan (1) Current use of anticoagulant therapy: Code(s): Z79.01 - alf (current) use of anticoagulants Category: Medical Medications: New acetaminophen 500 mg PO BID-QID PRN
== END 2024-07-23 13:44 | disposition home or self-care (01) ==
LOC: HO.ACS 13:06
PROVIDERS: PCP Internal Medicine; Visit Provider Internal Medicine
DX: Z79.01 Long term (current) use of anticoagulants (principal)

== ENCOUNTER → 2024-07-23 13:06 | Outpatient (BNVA) | payer MEDICARE, SELFPAY | PROVIDERS: PCP Internal Medicine; Visit Provider Internal Medicine | DX: Z13.89 Encounter for screening for other disorder (principal) | CPT/HCPCS: 85610; 99211 ==

== ENCOUNTER 2024-07-23 17:04 | Inpatient (IN) | payer MEDICARE, SELFPAY ==
--- NOTE | ~2024-07-23 | US_ITS ---
EXAMINATION: US TRIPLEX LOWER EXTREMITY, LEFT CLINICAL INFORMATION: Pain and edema. COMPARISON: Venous ultrasound dated 04/13/2021 and 02/11/2006 (report only). TECHNIQUE: Color-flow triplex imaging with spectral analysis and compression Doppler were performed on the left lower extremity. FINDINGS: Respiratory variation, normal compression and augmented flow are noted throughout the left lower extremity. The visualized common femoral vein, superficial femoral vein, profunda femoral vein, popliteal vein and midcalf peroneal and posterior tibial venous segments show no evidence of deep venous thrombosis. There is no Perez's cyst. Within the medial mid calf, there are noncompressible superficial varicosities. Within the left inguinal region, a 2.8 x 1.0 cm reniform lymph node is seen. US/US venous duplex LE IMPRESSION: 1. No left lower extremity deep venous thrombosis is seen. 2. There are thrombosed superficial varicosities within the medial left calf. 3. A borderline enlarged, nonspecific left inguinal lymph node is seen. Recommend management on a clinical basis. Electronically signed by: Ruben Gibson MD 07/23/2024 09:21 PM EDT
[2024-07-23 17:26] VITALS: BP 149/66; PULSE 62; RESP 16; TEMP 36.9; O2SAT 92; BMI 38.4
--- NOTE | 2024-07-23 17:27 | ED_ITS ---
HPI - Extremity Injury (Lower) General Chief Complaint: Extremity Injury, Lower Stated Complaint: L leg swelling Time Seen by Provider: 07/23/24 19:32 Source: patient Mode of arrival: ambulatory Limitations: no limitations History of Present Illness ED Provider: Dr. Maximiliano Hendrix HPI Narrative: 68-year-old female with a history of impaired fasting glucose, anemia, hyperkalemia, obesity, recurrent DVT and paroxysmal atrial fibrillation on warfarin, venous insufficiency of both lower extremities, diverticulitis, obstructive sleep apnea, diastolic congestive heart failure who presents emergency department for evaluation of pain and swelling of her left lower extremity. The patient states she fell last 07/13/2024 (10 days prior. She states that she tripped and fell landing on both knees. She states she had a large bump to her right calf which is resolving. She was seen here in the emergency department on 07/16/2024. She had a CT scan of the left knee which revealed no acute fracture but a small effusion. She was discharged home and treated with Tylenol. She states that over the last 2-3 days she has noticed increased pain in her left calf area with increased swelling and increased size of her calf. She also noted that the leg was red and hot and the redness has spread along her medial thigh. She denied fever or chills. She states she was feeling fatigued. She denied nausea, vomiting or diarrhea. Related Data Home Medications ?Medication ?Instructions ?Recorded ?Confirmed ascorbate calcium (vitamin C) 500 500 mg PO DAILY 04/06/21 07/23/24 mg tablet cholecalciferol (vitamin D3) 10 10 mcg PO DAILY 04/06/21 07/23/24 mcg (400 unit) capsule mecobalamin (vitamin B12) 5,000 5,000 mcg PO DAILY 04/06/21 07/23/24 mcg lozenge multivitamin 1 tab PO DAILY 04/06/21 07/23/24 warfarin 5 mg tablet 2.5 mg PO .COMPLEX 02/12/24 07/23/24 acetaminophen 500 mg capsule 500 mg PO BID-QID PRN 07/23/24 07/23/24 Previous Rx's ?Medication ?Instructions ?Recorded blood sugar diagnostic (OneTouch #100 ea 06/04/22 Ultra Test strips) blood-glucose meter (EnbridgeTouch #1 ea 06/04/22 Ultra2 Meter kit) lancets 33 gauge (KendrickTouch Delica #100 ea 06/04/22 Lancets) bumetanide 2 mg tablet 1 mg (1/2 x 2 mg) PO DAILY #90 tabs 12/02/23 amiodarone 200 mg tablet 200 mg PO DAILY #90 tabs 07/20/24 gabapentin 300 mg capsule 300 mg PO BID #60 caps 07/21/24 Allergies Allergy/AdvReac Type Severity Reaction Status Date / Time Sulfa (Sulfonamide Allergy Unknown RASH Verified 07/23/24 17:29 Antibiotics) [SULFA(SULFONAMIDE ANTIBIOTICS)] codeine AdvReac Vomiting Verified 07/23/24 17:29 oxycodone AdvReac Gastrointestinal Verified 07/23/24 17:29 Upset Review of Systems 2 Review of Systems: Yes all other systems are reviewed and are negative [facility] Past Medical History [facility] Narrative: Social history: She denies tobacco, alcohol and drug use Medical History Right shoulder pain Acute pain of left wrist Impaired fasting glucose Shortness of breath on exertion Vaccine refused by patient Elevated brain natriuretic peptide (BNP) level Anemia Hyperkalemia Morbid obesity Iliotibial band syndrome Lumbosacral radiculopathy due to osteoarthritis of spine History of deep vein thrombophlebitis of lower extremity Positive ALVIN (antinuclear antibody) CKD (chronic kidney disease) stage 3, GFR 30-59 ml/min Knee pain Osteoarthritis of right ankle and foot Lower back pain Ankle pain, right Postmenopausal Obesity Hip pain Venous insufficiency of both lower extremities Diverticulitis Peripheral vascular complication of surgical procedure Peripheral vascular disease Hyperlipidemia DVT (deep venous thrombosis) Diastolic heart failure Paroxysmal A-fib BERE (obstructive sleep apnea) Surgical History History of lithotripsy History of cardiac cath Hx of vascular surgery H/O hysterectomy for benign disease Family History Family History Father Emphysema, unspecified Mother No problems noted. Brother Atrial fibrillation Sister Atrial fibrillation Sister Breast cancer Social History Social History Household Members: None Housing: Apartment Do you presently have visiting nurse or other home services: No Alcohol intake: never Patient Tobacco Use Status: Never used Tobacco Smoked in Last 30 Days: No Use of substances other than those prescribed or required for medical reasons: No Advance Directives: No Advance Directives Information Provided: No Nutrition Risks: No Nutritional Risk service: No Current occupational status: retired and disabled Current occupation: rt handed Cognitive needs: No Hearing needs: No Vision needs: No Physical Exam 2 Vital Signs: Vital Signs: Last Vital Signs Temp 98.6 F 07/23/24 21:21 Pulse 54 07/23/24 21:21 Resp 15 07/23/24 21:21 BP 128/48 L 07/23/24 21:21 Pulse Ox 93 07/23/24 21:21 O2 Del Method Room Air 07/23/24 21:21 BMI result Body Mass Index 38.4 Vital signs were normal Exam: General: Awake, alert in no distress Head: Normocephalic, atraumatic EENT: PERRL, Lids normal, sclera normal, conjunctiva normal, nose normal , ears normal, throat without erythema or exudates Neck: Supple, no adenopathy Lung: breath sounds symmetric, no wheezing, rales or rhonchi Chest: symmetric movement, nontender Heart: regular rate and rhythm, normal S1, S2 no murmurs or rubs Abdomen: soft, non-tender, nondistended, normal bowel sounds Back: no vertebral tenderness, no CVAT Extremities: Patient has left lower extremity is increased in size compared to the right with increased warmth and erythema from the ankle to the knee with lymphangitis along the medial aspect of the thigh Neuro: Awake, alert, oriented, normal speech, cranial nerves intact, moves all extremities symmetrically Psych: Pleasant, cooperative Course Course Course Narrative: This is a Rapid Medical Examination (RME) performed by Marco Kraft PA-C in triage. Full HPI, ROS, assessment and treatment plan per primary provider in the Main ED. 68 yo female hx of multiple DVTs, on coumadin, here for eval of LLE pain/sweling. reports fall on 07/13, seen in ED on 07/16, had xr and CT of left knee and discharged home with diagnosis of contusion. since discharge has worsening pain/ swelling to entire LLE extending to back. had f/u at coumadin clinic today, was advised to come to ED to r/o DVT. denies cp/sob. Plan: labs, venous duplex. patient hypoxic to 92%. Medications Administered Generic Name Dose Route Start Last Admin Trade Name Freq PRN Reason Stop Dose Admin Vancomycin HCl 2,000 mg in 500 mls @ 250 mls/hr 07/23/24 21:05 07/23/24 21:19 Vancomycin/Ns IV 07/23/24 23:04 250 mls/hr ONCE ONE Administration Discontinued Medications Generic Name Dose Route Start Last Admin Trade Name Freq PRN Reason Stop Dose Admin Acetaminophen 975 mg 07/23/24 18:21 07/23/24 18:28 Acetaminophen 325 Mg Tablet PO 07/23/24 18:22 975 mg ONCE ONE Administration Piperacillin Sod/Tazobactam 100 mls @ 200 mls/hr 07/23/24 19:56 07/23/24 21:11 Sod 4.5 gm/ Sodium Chloride IV 07/23/24 20:25 Infused ONCE ONE Infusion Medical Decision Making Medical Decision Making [facility] Narrative: 68-year-old female with a history of impaired fasting glucose, anemia, hyperkalemia, obesity, recurrent DVT and paroxysmal atrial fibrillation on warfarin, venous insufficiency of both lower extremities, diverticulitis, obstructive sleep apnea, diastolic congestive heart failure who presents emergency department for evaluation of pain and swelling of her left lower extremity. The patient fell last 07/13/2024 (10 days prior), injured her right knee and left calf, was seen in the emergency department on 07/16/[address] scan of the left knee which revealed no acute fracture. Her vital signs were normal. Exam revealed increased size of the left lower extremity compared to the right with erythema from the left ankle to knee with lymphangitis along the medial aspect of the thigh. There is also increased warmth over the erythema. 20:05 hours Differential diagnosis: ?Includes but is not limited to cellulitis with lymphangitis, DVT, anemia, electrolyte abnormalities Following evaluation was ordered: CBC, CMP, PT/INR, lactic acid, blood cultures x2, venous duplex ultrasound left lower extremity Patient was initially treated with the following: Acetaminophen 975 mg orally for pain, Zosyn 4.5 g IV Course: 20:23 Patient's laboratory evaluation did reveal an elevated glucose otherwise was unremarkable. Duplex ultrasound did not reveal any DVT of the left lower extremity. Patient's findings are consistent with cellulitis with lymphangitis, given her venous insufficiency believe the patient will require IV antibiotics until she demonstrates improvement can be switched over to oral antibiotics. I did discuss this patient over tiger text with the covering hospitalist, Dr. Bowman and the patient will be admitted for further manage Admission/Observation Consideration of admission/observation: Escalation of care including admission/observation considered Consult Healthcare Provider Management of the patient was discussed with: Hospitalist Lab Data MDM Lab Attestation statement: I reviewed the patient's lab results. My interpretation patient's laboratory evaluation is as follows: CBC was normal. INR was therapeutic at 2.4. Glucose elevated 120. 07/23/24 18:05 07/23/24 18:05 Labs: Lab Results 07/23/24 07/23/24 Range/Units 18:05 20:09 WBC 7.5 (4.8-10.8) X10*3/uL RBC 4.21 (4.20-5.50) X10*6/uL Hgb 13.2 (12.0-16.0) g/dl Hct 39.2 (37.0-47.0) % MCV 93.1 (80.0-98.0) fL MCH 31.4 (27.0-33.0) pg MCHC 33.7 (31.0-35.0) g/dl RDW 13.7 (11.0-16.0) % Plt Count 277 (160-400) X10*3/uL MPV 10.1 (9.4-12.3) fL Immature Gran % (Auto) 0.4 (0.0-0.4) % Neut % (Auto) 57.4 (45-73) % Lymph % (Auto) 28.7 (20-40) % [place] % (Auto) 9.6 (2-11) % Eos % (Auto) 3.2 (0-4) % Baso % (Auto) 0.7 (0-2) % Lymph # (Auto) 2.2 (1.2-4.9) X10*3/uL [place] # (Auto) 0.7 (0.1-1.2) X10*3/uL Eos # (Auto) 0.2 (0.0-0.4) X10*3/uL Baso # (Auto) 0.1 (0.0-0.2) X10*3/uL Abs Immat Gran (auto) 0.03 (0.00-0.03) X10*3/uL Absolute Neuts (auto) 4.3 (2.0-8.3) x10*3/uL Absolute Nucleated RBC 0.000 (0.0-0.012) X10*3/uL Nucleated RBC % (auto) 0.0 (0.0-0.2) /100WBC PT 29.0 H (11.1-13.3) SEC INR 2.4 H (0.9-1.1) Sodium 143 (135-145) mmol/L Potassium 4.0 (3.3-5.1) mmol/L Chloride 109 H (96-108) mmol/L Carbon Dioxide 26 (22-29) mmol/L Anion Gap 12 (12-20) BUN 21 H (9-16) mg/dL Creatinine 1.26 (0.5-1.4) mg/dL Estim Creat Clear Calc 52.0 Estimated GFR 42 Random Glucose 120 H (60-115) mg/dL Lactic Acid 0.8 (0.5-2.0) mmol/L Calcium 9.1 (8.4-10.2) mg/dL Total Bilirubin 0.5 (0.0-1.0) mg/dL AST 14 (5-31) U/L ALT 10 (0-31) U/L Alkaline Phosphatase 124 H (39-117) U/L Total Protein 7.0 (6.5-8.0) g/dL Albumin 3.8 (3.5-5.0) g/dL Chronic Conditions Patient?s care impacted by: Other (Venous insufficiency lower extremities) Discharge Plan Discharge Patient Disposition: Admitted As Inpatient Print Language: Greek
[2024-07-23 18:08] LABS: MANUAL DIFF FLAG NO
[2024-07-23 18:27] LABS: Basophils Absolute Auto 0.1 X10*3/uL (0.0-0.2); Basophils Percent Auto 0.7 % (0-2); Eosinophils Absolute Auto 0.2 X10*3/uL (0.0-0.4); Eosinophils Percent Auto 3.2 % (0-4); Hematocrit 39.2 % (37.0-47.0); Hemoglobin 13.2 g/dl (12.0-16.0); Imm Gran Abs Auto 0.03 X10*3/uL (0.00-0.03); Imm Gran Pct Auto 0.4 % (0.0-0.4); Lymphocytes Absolute Auto 2.2 X10*3/uL (1.2-4.9); Lymphocytes Percent Auto 28.7 % (20-40); Mean Corpuscular HGB Conc 33.7 g/dl (31.0-35.0); Mean Corpuscular Hemoglobin 31.4 pg (27.0-33.0); Mean Corpuscular Volume 93.1 fL (80.0-98.0); Mean Platelet Volume 10.1 fL (9.4-12.3); Monocytes Absolute Auto 0.7 X10*3/uL (0.1-1.2); Monocytes Percent Auto 9.6 % (2-11); Neutrophils Absolute Auto 4.3 x10*3/uL (2.0-8.3); Neutrophils Percent Auto 57.4 % (45-73); Platelet Count 277 X10*3/uL (160-400); Red Blood Count 4.21 X10*6/uL (4.20-5.50); Red Cell Distribution Width 13.7 % (11.0-16.0); White Blood Count 7.5 X10*3/uL (4.8-10.8)
[2024-07-23 18:28] LABS: INTERNATIONAL NORM RATIO 2.4 (0.9-1.1)
[2024-07-23] MEDS: Acetaminophen 325 MG TABLET 975 MG PO (18:28)
[2024-07-23 18:30] LABS: Alanine Aminotransferase 10 U/L (0-31); Albumin Level 3.8 g/dL (3.5-5.0); Alkaline Phosphatase 124 U/L (39-117); Anion Gap 12 (12-20); Aspartate Amino Transferase 14 U/L (5-31); Bilirubin Total 0.5 mg/dL (0.0-1.0); Blood Urea Nitrogen 21 mg/dL (9-16); Calcium 9.1 mg/dL (8.4-10.2); Carbon Dioxide 26 mmol/L (22-29); Chloride 109 mmol/L (96-108); Estimated Glomerular Filt Rate 42; Glucose Random 120 mg/dL (60-115); Sodium 143 mmol/L (135-145)
[2024-07-23 18:53] VITALS: BP 133/50; PULSE 61; RESP 16; TEMP 37.1; O2SAT 98
[2024-07-23 19:04] VITALS: BP 110/69; PULSE 97; RESP 18; TEMP 36.8; O2SAT 98
[2024-07-23 20:16] VITALS: BP 136/60; PULSE 57; RESP 20; TEMP 36.9; O2SAT 93
[2024-07-23 20:25] LABS: Lactic Acid 0.8 mmol/L (0.5-2.0)
[2024-07-23] MEDS: Piperacillin Sodium/Tazobactam 4.5 GM in 0.9 % Sodium Chloride 100 ML IV (20:28)
--- NOTE | 2024-07-23 21:06 | PM.IMHP ---
History of Present Illness Date of Service: 07/23/24 Chief Complaint: Leg swelling This is a 68-year-old female with pertinent history of DVT, paroxysmal atrial fibrillation on Coumadin, congestive heart failure with preserved ejection fraction, chronic venous insufficiency of bilateral lower extremities, BERE on CPAP, morbid obesity who presents to the emergency department for concerns of left lower extremity swelling and redness. Patient states she tripped and fell about 10 days ago, landing on her knees. Two days after the fall, she started noticing swelling of her left lower extremity. She was seen in the ER on 07/16 which revealed no fracture of the knee. Subsequently the swelling progressed and the left lower extremity became red and warm. She denies fever, chills, chest discomfort, palpitations, shortness of breath, abdominal pain, changes in urinary or bowel habits. In the emergency department, patient was initiated on empiric IV antibiotics. Venous duplex was obtained Review of Systems Constitutional: Constitutional: Reports no additional constitutional complaints Cardiovascular: Cardiovascular: Reports no additional cardiovascular complaints Respiratory: Respiratory: Reports no additional respiratory complaints Gastrointestinal: Gastrointestinal: Reports no additional gastrointestinal complaints Genitourinary: Genitourinary: Reports no additional female genitourinary complaints [facility] Medical History Right shoulder pain Acute pain of left wrist Impaired fasting glucose Shortness of breath on exertion Vaccine refused by patient Elevated brain natriuretic peptide (BNP) level Anemia Hyperkalemia Morbid obesity Iliotibial band syndrome Lumbosacral radiculopathy due to osteoarthritis of spine History of deep vein thrombophlebitis of lower extremity Positive ALVIN (antinuclear antibody) CKD (chronic kidney disease) stage 3, GFR 30-59 ml/min Knee pain Osteoarthritis of right ankle and foot Lower back pain Ankle pain, right Postmenopausal Obesity Hip pain Venous insufficiency of both lower extremities Diverticulitis Peripheral vascular complication of surgical procedure Peripheral vascular disease Hyperlipidemia DVT (deep venous thrombosis) Diastolic heart failure Paroxysmal A-fib BERE (obstructive sleep apnea) Family History Father Emphysema, unspecified Mother No problems noted. Brother Atrial fibrillation Sister Atrial fibrillation Sister Breast cancer Surgical History History of lithotripsy History of cardiac cath Hx of vascular surgery H/O hysterectomy for benign disease Social History Household Members: None Housing: Apartment Do you presently have visiting nurse or other home services: No Alcohol intake: never Patient Tobacco Use Status: Never used Tobacco Smoked in Last 30 Days: No Use of substances other than those prescribed or required for medical reasons: No Advance Directives: No Advance Directives Information Provided: No service: No Current occupational status: retired and disabled Current occupation: rt handed Cognitive needs: No Hearing needs: No Vision needs: No Meds Allergies Allergy/AdvReac Type Severity Reaction Status Date / Time Sulfa (Sulfonamide Allergy Unknown RASH Verified 07/23/24 17:29 Antibiotics) [SULFA(SULFONAMIDE ANTIBIOTICS)] codeine AdvReac Vomiting Verified 07/23/24 17:29 oxycodone AdvReac Gastrointestinal Verified 07/23/24 17:29 Upset Home Medications ?Medication ?Instructions ?Recorded ?Confirmed ?Last Taken ?Type ascorbate calcium (vitamin C) 500 500 mg PO DAILY 04/06/21 07/23/24 Unknown History mg tablet cholecalciferol (vitamin D3) 10 10 mcg PO DAILY 04/06/21 07/23/24 Unknown History mcg (400 unit) capsule mecobalamin (vitamin B12) 5,000 5,000 mcg PO DAILY 04/06/21 07/23/24 Unknown History mcg lozenge multivitamin 1 tab PO DAILY 04/06/21 07/23/24 1 Day Ago History ~05/23/22 1 tab warfarin 5 mg tablet 2.5 mg PO .COMPLEX 02/12/24 07/23/24 Unknown History acetaminophen 500 mg capsule 500 mg PO BID-QID PRN 07/23/24 07/23/24 Unknown History Physical Exam Vital Signs and Narrative: Vital Signs: Last Vital Signs Temp 98.4 F 07/23/24 20:16 Pulse 57 07/23/24 20:16 Resp 20 07/23/24 20:16 BP 136/60 07/23/24 20:16 Pulse Ox 93 07/23/24 20:16 O2 Del Method Room Air 07/23/24 20:16 BMI result Body Mass Index 38.4 Middle-aged female lying in bed in no distress Neck supple, no JVD Irregularly irregular Decreased breath sounds at bases Abdomen soft nontender, no guarding, no rigidity Patient is awake, alert and oriented to self, place, time and person ; no focal motor deficit Psych: Normal mood Left lower extremity with swelling, erythema, warmth ; bilateral chronic venous stasis changes Results Labs 07/23/24 18:05 07/23/24 18:05 Labs: Laboratory Results - last 24 hr 07/23/24 07/23/24 18:05 20:09 MCV 93.1 MCH 31.4 MCHC 33.7 RDW 13.7 Plt Count 277 MPV 10.1 Immature Gran % (Auto) 0.4 Neut % (Auto) 57.4 Lymph % (Auto) 28.7 [place] % (Auto) 9.6 Eos % (Auto) 3.2 Baso % (Auto) 0.7 Lymph # (Auto) 2.2 [place] # (Auto) 0.7 Eos # (Auto) 0.2 Baso # (Auto) 0.1 Abs Immat Gran (auto) 0.03 Absolute Neuts (auto) 4.3 Absolute Nucleated RBC 0.000 Nucleated RBC % (auto) 0.0 PT 29.0 H INR 2.4 H Anion Gap 12 Estim Creat Clear Calc 52.0 Estimated GFR 42 Random Glucose 120 H Lactic Acid 0.8 Calcium 9.1 Total Bilirubin 0.5 AST 14 ALT 10 Alkaline Phosphatase 124 H Total Protein 7.0 Albumin 3.8 Assessment and Plan (1) Cellulitis of left leg: Status: Acute Plan This is a 68-year-old female with pertinent history of DVT, paroxysmal atrial fibrillation on Coumadin, congestive heart failure with preserved ejection fraction, chronic venous insufficiency of bilateral lower extremities, BERE on CPAP, morbid obesity who presents to the emergency department for concerns of left lower extremity swelling and redness. #. Left lower extremity cellulitis in a patient with chronic venous insufficiency: Will admit patient with IV vancomycin due to extensive cellulitis. Monitor for improvement. No sepsis. Venous duplex pending #. Paroxysmal atrial fibrillation/history of DVT: On Coumadin. Rate controlled in the ER. Continue amiodarone #. Congestive heart failure with preserved EF: On Bumex #. Morbid Obesity: Counseled regarding diet and exercise #. BERE: Continue CPAP at bedtime Med rec pending DVT prophylaxis: Coumadin Full code Admit as inpatient and will require two night minimum hospital stay for IV antibiotics (as above), which is not possible in a lesser acute setting. Quality Stroke Does the patient have a stroke diagnosis?: No VTE Prior VTE?: No VTE Risk Level:: Medical - moderate - high VTE Device Contraindication: Treatment Not Indicated VTE Drug Contraindication: N/A - Med Ordered
[2024-07-23] MEDS: vancomycin/NS 2,000 MG/500 ML PLAST..BAG 250 MG IV (21:19)
[2024-07-23 21:21] VITALS: BP 128/48; PULSE 54; RESP 15; TEMP 37; O2SAT 93
--- NOTE | 2024-07-23 22:10 | PHA.PROG ---
Admission Date/Time: Indication: SKIN Serum Creatinine - Last 168 Hours 07/23/24 18:05 Creatinine 1.26 Estimated CrCl and GFR - Last 168 Hours 07/23/24 18:05 Estim Creat Clear Calc 52.0 Estimated GFR 42 Vancomycin Loading Dose: 2000 Current Vancomycin Dosing Regimen: 750 Q 12 Vancomycin Monitoring using AUC goal of 400 - 600 range with trough as surrogate marker: 435 Date and Time for next Vancomycin Level to be drawn: 07/25 @ 0700 Pharmacist Comments on Vancomycin Plan: Vancomycin dosing will take advantage of [employer] as a clinical decision support tool that uses Bayesian modeling to calculate individual patient's pharmacokinetic parameters and forecast the patient's drug concentration time course with the target goal AUC 24 range of 400 - 600 mg/L/hr.
--- NOTE | 2024-07-23 22:22 | PC.NURSE ---
Addendum entered by Lilli Orellana RN 07/23/24 22:27: RT called to place patient on her HS CPAP. Original Note: Patient moved to new room for privacy, working tv per patient request, resting quietly on stretcher at this time, waiting bed assignment.
[2024-07-23] MEDS: Gabapentin 300 MG CAPSULE PO (22:36)
[2024-07-23 23:04] VITALS: PULSE 53; RESP 18; O2SAT 94
[2024-07-24] VITALS (8 sets, daily range): BP systolic 122–164; BP diastolic 49–79; PULSE 50–57; RESP 18–22; TEMP 36.2–36.6; O2SAT 92–98; BMI 38.1
[2024-07-24] MEDS: Acetaminophen 325 MG TABLET 650 MG PO ×4 (04:09→23:38)
[2024-07-24 06:30] LABS: MANUAL DIFF FLAG NO
[2024-07-24 06:37] LABS: Basophils Absolute Auto 0.1 X10*3/uL (0.0-0.2); Basophils Percent Auto 0.9 % (0-2); Eosinophils Absolute Auto 0.3 X10*3/uL (0.0-0.4); Hemoglobin 12.5 g/dl (12.0-16.0); Imm Gran Abs Auto 0.03 X10*3/uL (0.00-0.03); Imm Gran Pct Auto 0.5 % (0.0-0.4); Lymphocytes Absolute Auto 1.7 X10*3/uL (1.2-4.9); Mean Corpuscular HGB Conc 33.8 g/dl (31.0-35.0); Mean Corpuscular Hemoglobin 31.4 pg (27.0-33.0); Mean Platelet Volume 10.1 fL (9.4-12.3); Monocytes Absolute Auto 0.6 X10*3/uL (0.1-1.2); Monocytes Percent Auto 10.5 % (2-11); Neutrophils Percent Auto 53.1 % (45-73); Platelet Count 223 X10*3/uL (160-400); Red Blood Count 3.98 X10*6/uL (4.20-5.50); Red Cell Distribution Width 13.6 % (11.0-16.0); White Blood Count 5.6 X10*3/uL (4.8-10.8)
[2024-07-24 06:51] LABS: Anion Gap 10 (12-20); Blood Urea Nitrogen 17 mg/dL (9-16); Carbon Dioxide 27 mmol/L (22-29); Chloride 109 mmol/L (96-108); Creatinine Clr Calc Pharmacy 62.7; Estimated Glomerular Filt Rate 53; Glucose Random 109 mg/dL (60-115); Potassium 3.5 mmol/L (3.3-5.1); Sodium 142 mmol/L (135-145)
--- NOTE | 2024-07-24 07:42 | HE.PHANOTE ---
Vancomnycin Dosing CrCl increased from 52 to 62.7. With improvement in renal function, current regimen expected to be subtherapeutic. Will increase dose to vancomycin 1000 mg Q12H. New predicted AUC 499 with a trough of 16.6. Level schedule for 07/25 @ 0700. Yoana Alonzo, PharmD
--- NOTE | 2024-07-24 08:47 | PHA.MEDREC ---
Addendum entered by Saundra Molina RPh 07/24/24 09:03: [facility] rec was reviewed by Christin. Original Note: Pharmacy Consult ? Medication Reconciliation Pharmacy has completed the medication reconciliation. Spoke with patient to confirm medications. She confirmed warfarin dose of 2.5 mg daily except 5mg on and , she last took 2.5 mg yesterday. Her AM gabapentin she takes sometimes as needed for pain but always takes her bedtime dose. She had all medications yesterday.
--- NOTE | 2024-07-24 08:48 | MHC.CM.PN ---
Addendum entered by Meme Wills 07/24/24 08:52: Patient uses CPAP @ home, from [employer]. Original Note: CM met with Patient at bedside and addressed IMM with her, providing Patient with the original and a copy has been placed on the chart. Patient lives alone in an apartment and she uses a cane to assist with mobility. Home/self care is the goal and CM has initiated and will follow for dc planning. Patient's car is here and HCP is Son/Tal[facility].
[2024-07-24] MEDS: Amiodarone HCL 200 MG TABLET PO (09:14)
[2024-07-24] MEDS: vancomycin HCL 1,000 MG in 0.9 % Sodium Chloride 250 ML 270 MG IV ×2 (09:14→20:14)
[2024-07-24] MEDS: 0.9 % Sodium Chloride Flush 3 ML SYRINGE IVFLUSH ×2 (09:15→23:39)
[2024-07-24 09:35] LABS: INTERNATIONAL NORM RATIO 2.4 (0.9-1.1); Prothrombin Time 29.1 SEC (11.1-13.3)
--- NOTE | 2024-07-24 11:24 | P.PNIM_ITS ---
Subjective Subjective Date of Service: 07/24/24 Interval History: left leg swelling, ertyhema unchanged Physical Exam 2 Vital Signs: Vital Signs: Last Vital Signs Temp 97.1 F 07/24/24 07:58 Pulse 53 07/24/24 07:58 Resp 19 07/24/24 07:58 BP 122/60 07/24/24 07:58 Pulse Ox 98 07/24/24 07:58 O2 Del Method Room Air 07/24/24 07:58 BMI result Body Mass Index 38.1 left leg swelling, some erythematous spots Objective Data Active Medications Acetaminophen (Acetaminophen 325 Mg Tablet) 650 mg PO Q6H PRN PRN Reason: Pain, Mild (Pain Scale 1-3), fever or headache Last Admin: 07/24/24 04:09 Dose: 650 mg Documented By: ESSIE Amiodarone HCl (Amiodarone Hcl 200 Mg Tablet) 200 mg PO DAILY [facility] Last Admin: 07/24/24 09:14 Dose: 200 mg Documented By: LAUREL Calcium Carbonate (Calcium Carbonate 750 Mg Tab.Chew) 750 mg PO Q4H PRN PRN Reason: Heartburn Vancomycin HCl 1,000 mg/ (Sodium Chloride) 270 mls @ 270 mls/hr IV Q12H [facility] Last Infusion: 07/24/24 10:24 Dose: Infused Documented By: LAUREL Magnesium Hydroxide (Milk Of Magnesia 30 Ml Oral.Susp) 30 ml PO DAILY PRN PRN Reason: Constipation Melatonin (Melatonin 3 Mg Tablet) 6 mg PO BEDTIME PRN PRN Reason: Insomnia Ondansetron HCl (Ondansetron Hcl 4 Mg/2 Ml Vial) 4 mg IVPUSH Q8H PRN PRN Reason: Nausea and Vomiting Pharmacy Consult (Consult Rx Vancomycin Dosing) 1 each MISCELLANE DAILY PRN PRN Reason: Consult order Sodium Chloride (0.9 % Sodium Chloride Flush 3 Ml Syringe) 3 ml IVFLUSH QSHIFT [facility] Last Admin: 07/24/24 09:15 Dose: 3 ml Documented By: LAUREL Warfarin Sodium (Warfarin Sodium 2.5 Mg Tablet) 2.5 mg PO MoTuWeFrSa@1800 [facility] Warfarin Sodium (Warfarin Sodium 5 Mg Tablet) 5 mg PO SuTh@1800 [facility] Labs 07/24/24 06:04 07/24/24 06:04 Labs: Laboratory Results - last 24 hr 07/23/24 07/23/24 07/24/24 18:05 20:09 06:04 MCV 93.1 93.0 MCH 31.4 31.4 MCHC 33.7 33.8 RDW 13.7 13.6 Plt Count 277 223 MPV 10.1 10.1 Immature Gran % (Auto) 0.4 0.5 H Neut % (Auto) 57.4 53.1 Lymph % (Auto) 28.7 30.0 [place] % (Auto) 9.6 10.5 Eos % (Auto) 3.2 5.0 H Baso % (Auto) 0.7 0.9 Lymph # (Auto) 2.2 1.7 [place] # (Auto) 0.7 0.6 Eos # (Auto) 0.2 0.3 Baso # (Auto) 0.1 0.1 Abs Immat Gran (auto) 0.03 0.03 Absolute Neuts (auto) 4.3 3.0 Absolute Nucleated RBC 0.000 0.000 Nucleated RBC % (auto) 0.0 0.0 PT 29.0 H INR 2.4 H Anion Gap 12 10 L Estim Creat Clear Calc 52.0 62.7 Estimated GFR 42 53 Random Glucose 120 H 109 Lactic Acid 0.8 Calcium 9.1 9.0 Total Bilirubin 0.5 AST 14 ALT 10 Alkaline Phosphatase 124 H Total Protein 7.0 Albumin 3.8 07/24/24 09:18 MCV MCH MCHC RDW Plt Count MPV Immature Gran % (Auto) Neut % (Auto) Lymph % (Auto) [place] % (Auto) Eos % (Auto) Baso % (Auto) Lymph # (Auto) [place] # (Auto) Eos # (Auto) Baso # (Auto) Abs Immat Gran (auto) Absolute Neuts (auto) Absolute Nucleated RBC Nucleated RBC % (auto) PT 29.1 H INR 2.4 H Anion Gap Estim Creat Clear Calc Estimated GFR Random Glucose Lactic Acid Calcium Total Bilirubin AST ALT Alkaline Phosphatase Total Protein Albumin Assessment and Plan (1) Cellulitis of left leg: Status: Acute Plan 68F PMH DVT, pafib, hfpef, chronic venous insufficiency, charity on cpap, morbid obesity, presented with lle swelling and erythema lle swelling and ertyhema stasis dermatitis vs cellulitis continue vancomycin pafib coumadin, amio history of dvt coumadin hfpef bumex charity cpap morbid obesity weight loss full code reason for continued hospitalization:iv abx Quality Stroke Does the patient have a stroke diagnosis?: No VTE Prior VTE?: No VTE Risk Level:: Medical - moderate - high VTE Device Contraindication: Treatment Not Indicated VTE Drug Contraindication: N/A - Med Ordered
[2024-07-24] MEDS: Bumetanide 1 MG TABLET PO (11:47)
[2024-07-24] MEDS: Warfarin Sodium 2.5 MG TABLET PO (17:14)
[2024-07-24] MEDS: Melatonin 3 MG TABLET 6 MG PO (20:14)
[2024-07-24] MEDS: Gabapentin 300 MG CAPSULE PO (20:14)
[2024-07-25 03:00] VITALS: BP 177/76; PULSE 50; RESP 18; TEMP 36.6; O2SAT 93
[2024-07-25] MEDS: traMADoL HCL 50 MG TABLET 25 MG PO ×2 (03:10→08:48)
[2024-07-25] MEDS: Acetaminophen 325 MG TABLET 650 MG PO ×3 (06:34→18:52)
[2024-07-25 06:59] LABS: INTERNATIONAL NORM RATIO 2.4 (0.9-1.1); Prothrombin Time 29.2 SEC (11.1-13.3)
[2024-07-25 07:00] LABS: Anion Gap 11 (12-20); Blood Urea Nitrogen 15 mg/dL (9-16); Carbon Dioxide 26 mmol/L (22-29); Chloride 107 mmol/L (96-108); Creatinine Clr Calc Pharmacy 61.5; Estimated Glomerular Filt Rate 52; Glucose Fasting 114 mg/dL (60-99); Magnesium 2.1 mg/dL (1.6-2.6); Potassium 4.1 mmol/L (3.3-5.1); Sodium 140 mmol/L (135-145)
[2024-07-25 07:16] LABS: Vancomycin Random 18.9 mcg/mL (15-20)
[2024-07-25 07:21] VITALS: BP 122/62; PULSE 55; RESP 20; TEMP 36.1; O2SAT 91
[2024-07-25 07:22] LABS: Hematocrit 38.7 % (37.0-47.0); Hemoglobin 13.1 g/dl (12.0-16.0); Mean Corpuscular HGB Conc 33.9 g/dl (31.0-35.0); Mean Corpuscular Volume 91.5 fL (80.0-98.0); Mean Platelet Volume 10.2 fL (9.4-12.3); Platelet Count 255 X10*3/uL (160-400); Red Blood Count 4.23 X10*6/uL (4.20-5.50); Red Cell Distribution Width 13.6 % (11.0-16.0); White Blood Count 6.9 X10*3/uL (4.8-10.8)
--- NOTE | 2024-07-25 07:53 | HE.PHANOTE ---
Vancomycin Dosing Trough 18.9 today. At current regimen AUC predicted to be 594. Since patient has a skin infection will aim AUC closer to 500, to minimize potential toxicities. Will decrease dose to vancomycin 750 mg Q12H. New Predict AUC 459 with a trough of 15.3. Next level schedule on 07/26 @ 1900. Pharmacy will continue to monitor renal function daily. Yoana Alonzo, PharmD
[2024-07-25] MEDS: Ascorbic Acid 500 MG TABLET PO (08:46)
[2024-07-25] MEDS: Amiodarone HCL 200 MG TABLET PO (08:46)
[2024-07-25] MEDS: Cholecalciferol (Vitamin D3) 10 MCG TABLET PO (08:46)
[2024-07-25] MEDS: Cyanocobalamin (Vitamin B-12) 500 MCG TABLET PO (08:46)
[2024-07-25] MEDS: Multivitamin TABLET 1 TAB PO (08:46)
[2024-07-25] MEDS: Bumetanide 1 MG TABLET PO (08:46)
[2024-07-25] MEDS: 0.9 % Sodium Chloride Flush 3 ML SYRINGE IVFLUSH ×2 (08:51→20:04)
[2024-07-25] MEDS: vancomycin HCL 750 MG in 0.9 % Sodium Chloride 250 ML 265 MG IV ×2 (08:52→20:05)
--- NOTE | 2024-07-25 09:18 | HO.PM.IMPN ---
Subjective Subjective Date of Service: 07/25/24 Interval History: left knee pain and swelling, ertyhema improving Physical Exam Vital Signs: Vital Signs: Last Vital Signs Temp 96.9 F 07/25/24 07:21 Pulse 55 07/25/24 07:21 Resp 20 07/25/24 07:21 BP 122/62 07/25/24 07:21 Pulse Ox 91 L 07/25/24 07:21 O2 Del Method Room Air 07/25/24 07:21 BMI result Body Mass Index 38.1 left leg swelling, some erythematous spots Objective Data Active Medications Acetaminophen (Acetaminophen 325 Mg Tablet) 650 mg PO Q6H PRN PRN Reason: Pain, Mild (Pain Scale 1-3), fever or headache Last Admin: 07/25/24 06:34 Dose: 650 mg Documented By: CHAD Amiodarone HCl (Amiodarone Hcl 200 Mg Tablet) 200 mg PO DAILY [facility] Last Admin: 07/25/24 08:46 Dose: 200 mg Documented By: LAUREL Ascorbic Acid (Ascorbic Acid 500 Mg Tablet) 500 mg PO DAILY [facility] Last Admin: 07/25/24 08:46 Dose: 500 mg Documented By: LAUREL Bumetanide (Bumetanide 1 Mg Tablet) 1 mg PO DAILY [facility]; Protocol Last Admin: 07/25/24 08:46 Dose: 1 mg Documented By: LAUREL Calcium Carbonate (Calcium Carbonate 750 Mg Tab.Chew) 750 mg PO Q4H PRN PRN Reason: Heartburn Cyanocobalamin (Cyanocobalamin (Vitamin B-12) 500 Mcg Tablet) 500 mcg PO DAILY [facility] Last Admin: 07/25/24 08:46 Dose: 500 mcg Documented By: LAUREL Gabapentin (Gabapentin 300 Mg Capsule) 300 mg PO BEDTIME [facility] Last Admin: 07/24/24 20:14 Dose: 300 mg Documented By: LUCIANA Vancomycin HCl 750 mg/ Sodium (Chloride) 265 mls @ 265 mls/hr IV Q12H [facility] Last Admin: 07/25/24 08:52 Dose: 265 mls/hr Documented By: LAUREL Magnesium Hydroxide (Milk Of Magnesia 30 Ml Oral.Susp) 30 ml PO DAILY PRN PRN Reason: Constipation Melatonin (Melatonin 3 Mg Tablet) 6 mg PO BEDTIME PRN PRN Reason: Insomnia Last Admin: 07/24/24 20:14 Dose: 6 mg Documented By: LUCIANA Multivitamins/Vitamin C (Multivitamin Tablet) 1 tab PO DAILY [facility] Last Admin: 07/25/24 08:46 Dose: 1 tab Documented By: LAUREL Ondansetron HCl (Ondansetron Hcl 4 Mg/2 Ml Vial) 4 mg IVPUSH Q8H PRN PRN Reason: Nausea and Vomiting Pharmacy Consult (Consult Rx Vancomycin Dosing) 1 each MISCELLANE DAILY PRN PRN Reason: Consult order Prednisone (Prednisone 20 Mg Tablet) 40 mg PO DAILY [facility] Sodium Chloride (0.9 % Sodium Chloride Flush 3 Ml Syringe) 3 ml IVFLUSH QSHIFT [facility] Last Admin: 07/25/24 08:51 Dose: 3 ml Documented By: LAUREL Tramadol HCl (Tramadol Hcl 50 Mg Tablet) 25 mg PO Q6H PRN PRN Reason: Pain, Severe (Pain Scale 7-10) Last Admin: 07/25/24 08:48 Dose: 25 mg Documented By: LAUREL Vitamin D (Cholecalciferol (Vitamin D3) 10 Mcg Tablet) 10 mcg PO DAILY [facility] Last Admin: 07/25/24 08:46 Dose: 10 mcg Documented By: LAUREL Warfarin Sodium (Warfarin Sodium 2.5 Mg Tablet) 2.5 mg PO MoTuWeFrSa@1800 [facility] Last Admin: 07/24/24 17:14 Dose: 2.5 mg Documented By: LAUREL Warfarin Sodium (Warfarin Sodium 5 Mg Tablet) 5 mg PO SuTh@1800 [facility] Labs 07/25/24 06:29 07/25/24 06:29 Labs: Laboratory Results - last 24 hr 07/24/24 07/25/24 09:18 06:29 MCV 91.5 MCH 31.0 MCHC 33.9 RDW 13.6 Plt Count 255 MPV 10.2 Absolute Nucleated RBC 0.000 Nucleated RBC % (auto) 0.0 PT 29.1 H 29.2 H INR 2.4 H 2.4 H Anion Gap 11 L Estim Creat Clear Calc 61.5 Estimated GFR 52 Fasting Glucose 114 H Calcium 9.0 Magnesium 2.1 Random Vancomycin 18.9 Microbiology Microbiology Results: Microbiology 07/23/24 20:18 Blood Culture - Preliminary Blood - Venous No growth after 24 hours. 07/23/24 20:09 Blood Culture - Preliminary Blood - Venous No growth after 24 hours. Assessment and Plan (1) Cellulitis of left leg: Status: Acute Plan 68F PMH DVT, pafib, hfpef, chronic venous insufficiency, charity on cpap, morbid obesity, presented with lle swelling and erythema lle swelling and ertyhema stasis dermatitis vs cellulitis continue vancomycin left knee swelling and pain empiric steroids, monitor pafib coumadin, amio history of dvt coumadin hfpef bumex charity cpap morbid obesity weight loss full code reason for continued hospitalization:iv abx Quality Stroke Does the patient have a stroke diagnosis?: No VTE Prior VTE?: No VTE Risk Level:: Medical - moderate - high VTE Device Contraindication: Treatment Not Indicated VTE Drug Contraindication: N/A - Med Ordered
[2024-07-25] MEDS: methylPREDNISolone Sod Succ 40 MG/ML VIAL IVPUSH (10:19)
[2024-07-25] MEDS: Gabapentin 300 MG CAPSULE PO ×2 (10:20→20:04)
[2024-07-25 15:10] VITALS: BP 134/61; PULSE 59; RESP 20; TEMP 36.2; O2SAT 91
[2024-07-25] MEDS: Warfarin Sodium 5 MG TABLET PO (18:52)
[2024-07-25 20:00] VITALS: BP 140/65; PULSE 55; TEMP 36.5; O2SAT 92
[2024-07-25 23:16] VITALS: RESP 20
[2024-07-25 23:44] VITALS: BP 134/63; PULSE 51; RESP 18; TEMP 36.6; O2SAT 94
[2024-07-26 00:05] VITALS: RESP 18
[2024-07-26] MEDS: traMADoL HCL 50 MG TABLET 25 MG PO (00:56)
[2024-07-26 03:37] VITALS: BP 121/63; PULSE 53; RESP 20; TEMP 36.1; O2SAT 93
[2024-07-26] MEDS: Acetaminophen 325 MG TABLET 650 MG PO ×2 (06:23→11:14)
[2024-07-26 07:12] LABS: Hematocrit 38.4 % (37.0-47.0); Hemoglobin 13.3 g/dl (12.0-16.0); Mean Corpuscular HGB Conc 34.6 g/dl (31.0-35.0); Mean Corpuscular Hemoglobin 31.4 pg (27.0-33.0); Mean Corpuscular Volume 90.8 fL (80.0-98.0); Platelet Count 275 X10*3/uL (160-400); Red Blood Count 4.23 X10*6/uL (4.20-5.50); Red Cell Distribution Width 13.6 % (11.0-16.0); White Blood Count 10.7 X10*3/uL (4.8-10.8)
[2024-07-26 07:23] LABS: INTERNATIONAL NORM RATIO 2.7 (0.9-1.1); Prothrombin Time 32.6 SEC (11.1-13.3)
[2024-07-26 07:27] LABS: Anion Gap 11 (12-20); Blood Urea Nitrogen 16 mg/dL (9-16); Calcium 9.2 mg/dL (8.4-10.2); Carbon Dioxide 28 mmol/L (22-29); Chloride 104 mmol/L (96-108); Creatinine Clr Calc Pharmacy 70.1; Estimated Glomerular Filt Rate > 60; Glucose Fasting 126 mg/dL (60-99); Potassium 3.8 mmol/L (3.3-5.1); Sodium 139 mmol/L (135-145)
[2024-07-26 08:00] VITALS: BP 132/62; PULSE 56; RESP 18; TEMP 36.7; O2SAT 92
--- NOTE | 2024-07-26 09:59 | PM.DS ---
DS: Providers Provider Date of Service: 07/26/24 Date of admission: 07/23/24 22:05 Date of discharge: 07/26/24 Primary care physician: Annalee De La Torre MD DS: Diagnosis Discharge Diagnosis (1) Cellulitis of left leg: Status: Acute DS: Summary Hospital Course Hospital Course: from initial hpi: 68-year-old female with pertinent history of DVT, paroxysmal atrial fibrillation on Coumadin, congestive heart failure with preserved ejection fraction, chronic venous insufficiency of bilateral lower extremities, BERE on CPAP, morbid obesity who presents to the emergency department for concerns of left lower extremity swelling and redness. Patient states she tripped and fell about 10 days ago, landing on her knees. Two days after the fall, she started noticing swelling of her left lower extremity. She was seen in the ER on 07/16 which revealed no fracture of the knee. Subsequently the swelling progressed and the left lower extremity became red and warm. She denies fever, chills, chest discomfort, palpitations, shortness of breath, abdominal pain, changes in urinary or bowel habits. In the emergency department, patient was initiated on empiric IV antibiotics. Venous duplex was obtained hospital course: Patient was admitted for left lower extremity swelling and erythema due to cellulitis as well as acute stasis dermatitis. She was treated with IV vancomycin and had improvement. Doppler was negative for DVT. For left knee swelling and pain she was treated empirically with steroids for possible inflammatory arthritis. And did have some improvement. For paroxysmal atrial fibrillation she was continued on Coumadin amiodarone. For history of DVT she was continued on Coumadin. For chronic diastolic CHF she was continued on Bumex. For BERE she was continued on CPAP at night. For morbid obesity weight loss recommended. Patient is feeling better will be discharged home on 3 more days of p.o. prednisone and 5 more days of p.o. doxycycline. Time Attestation Discharge Coordination Time (in mins): 33 Quality: Safe Use of Opioids Does Pt have an Active Cancer Diagnosis on the Problem List?: No Quality: Stroke Does the patient have a stroke diagnosis?: No Physical Exam Vital Signs: Vital Signs: Last Vital Signs Temp 98.0 F 07/26/24 08:00 Pulse 56 07/26/24 08:00 Resp 18 07/26/24 08:00 BP 132/62 07/26/24 08:00 Pulse Ox 92 07/26/24 08:00 O2 Del Method Room Air 07/26/24 08:00 BMI result Body Mass Index 38.1 much improved swelling and erythema DS: Data Data Completed and Pending Completed studies during hospitalization [Text1]: Procedures Dilation of Left Ureter with Intraluminal Device, Via Natural or Artificial Opening Endoscopic (05/24/22) Extirpation of Matter from Left Ureter, Via Natural or Artificial Opening Endoscopic (05/24/22) Fluoroscopy of Left Kidney, Ureter and Bladder (05/24/22) Labs on day of discharge: Laboratory Results - last 24 hr 07/26/24 07/26/24 06:50 06:51 WBC 10.7 RBC 4.23 Hgb 13.3 Hct 38.4 MCV 90.8 MCH 31.4 MCHC 34.6 RDW 13.6 Plt Count 275 MPV 10.0 Absolute Nucleated RBC 0.000 Nucleated RBC % (auto) 0.0 PT 32.6 H INR 2.7 H Sodium 139 Potassium 3.8 Chloride 104 Carbon Dioxide 28 Anion Gap 11 L BUN 16 Creatinine 0.93 Estim Creat Clear Calc 70.1 Estimated GFR > 60 Fasting Glucose 126 H Calcium 9.2 Preliminary micro results at discharge 07/23/24 20:18 Blood Culture - Preliminary Blood - Venous No growth after 48 hours. 07/23/24 20:09 Blood Culture - Preliminary Blood - Venous No growth after 48 hours. Discharge Plan Discharge Anticipated Discharge Date/Time: 07/26/24 09:56 Patient Disposition: Home, Self-Care Discharge Diagnosis: cellulitis Referrals: Annalee De La Torre MD [Primary Care Provider] - 1 Week Discharge Medications: New prednisone 20 mg Tablet 40 mg PO DAILY Qty: 6 0RF doxycycline hyclate 100 mg capsule 100 mg PO BID Qty: 10 0RF Continued (DME) blood-glucose meter [OneTouch Ultra2 Meter] Kit See Rx Instructions .Route Qty: 1 0RF Rx Instructions: As directed (DME) lancets [OneTouch Delica Lancets] 33 gauge misc See Rx Instructions .Route Qty: 100 3RF Rx Instructions: test blood sugar once a day (DME) OneTouch Ultra Test Strip See Rx Instructions .Route Qty: 100 4RF Rx Instructions: 1 qd bumetanide 2 mg tablet 1 mg PO DAILY Qty: 90 1RF amiodarone 200 mg tablet 200 mg PO DAILY Qty: 90 3RF gabapentin 300 mg capsule 300 mg PO DAILY@0900 PRN (Reason: Pain) cyanocobalamin (vitamin B-12) 500 mcg Tablet,Chewable 500 mcg PO DAILY gabapentin 300 mg capsule 300 mg PO BEDTIME warfarin 2.5 mg Tablet 2.5 mg PO MOTUWEFRSA warfarin 5 mg Tablet 5 mg PO SUTH multivitamin Tablet 1 tab PO DAILY ascorbate calcium (vitamin C) 500 mg tablet 500 mg PO DAILY cholecalciferol (vitamin D3) 10 mcg (400 unit) capsule 10 mcg PO DAILY acetaminophen 500 mg capsule 500 mg PO BID-QID PRN (Reason: Pain) warfarin 5 mg tablet 2.5 mg PO .COMPLEX Protocol: Dose Management Condition: Friday (Week One) Dose/Route: 5 mg Instruction: 1 x 5 mg tablet Condition: Friday Dose/Route: 2.5 mg Instruction: 0.5 x 5 mg tablets Condition: Friday Dose/Route: 2.5 mg Instruction: 0.5 x 5 mg tablets Condition: Friday Dose/Route: 2.5 mg Instruction: 0.5 x 5 mg tablets Condition: Dose/Route: 5 mg Instruction: 1 x 5 mg tablet Condition: Friday Dose/Route: 2.5 mg Instruction: 0.5 x 5 mg tablets Condition: Friday Dose/Route: 2.5 mg Instruction: 0.5 x 5 mg tablets Condition: Friday (Week Two) Dose/Route: 5 mg Instruction: 1 x 5 mg tablet Condition: Friday Dose/Route: 2.5 mg Instruction: 0.5 x 5 mg tablets Condition: Friday Dose/Route: 2.5 mg Instruction: 0.5 x 5 mg tablets Condition: Friday Dose/Route: 2.5 mg Instruction: 0.5 x 5 mg tablets Condition: Dose/Route: 5 mg Instruction: 1 x 5 mg tablet Condition: Friday Dose/Route: 2.5 mg Instruction: 0.5 x 5 mg tablets Condition: Friday Dose/Route: 2.5 mg Instruction: 0.5 x 5 mg tablets Protocol Text: Adjustment Start Date: Friday07/23/24 INR Value: 2.5 INR Date: 07/23/24 Recheck Date: 07/30/24 Additional Instructions: REVIEW FOOD LIST WEEKLY , EAT A MIX OF FRUITS AND VEGETABLES, DRINK PLENTY OF FLUIDS, DO ANKEL PUMPS AND WALK MUCH TOLERATED - CALL VASCULAR SURGEON Rx Instructions: 2.5 mg X5 DAYS/ 5MG X 2 DAYS ( and ) Discharge Orders: Discharge Order (Routine); Ordered 07/26/24 Ordered By: Phil Celestin Diet: Advance to usual diet Activity on Discharge: As tolerated Stand Alone Forms: Patient Portal Discharge page Print Language: Persian Care Plan Goals: recovery Health Concerns: cellulitis Plan of Treatment: 3 more days prednisone, 5 more days doxy Assessment: see above
[2024-07-26] MEDS: 0.9 % Sodium Chloride Flush 3 ML SYRINGE IVFLUSH (10:43)
[2024-07-26 10:44] VITALS: BP 154/79
[2024-07-26] MEDS: Bumetanide 1 MG TABLET PO (10:44)
[2024-07-26] MEDS: Multivitamin TABLET 1 TAB PO (10:51)
[2024-07-26] MEDS: predniSONE 20 MG TABLET 40 MG PO (10:51)
[2024-07-26] MEDS: Gabapentin 300 MG CAPSULE PO (10:52)
[2024-07-26] MEDS: Cholecalciferol (Vitamin D3) 10 MCG TABLET PO (10:52)
[2024-07-26] MEDS: Ascorbic Acid 500 MG TABLET PO (10:52)
[2024-07-26] MEDS: Amiodarone HCL 200 MG TABLET PO (10:52)
[2024-07-26] MEDS: Cyanocobalamin (Vitamin B-12) 500 MCG TABLET PO (10:56)
--- NOTE | 2024-07-26 11:00 | MHC.CM.PN ---
Pt is medically cleared for discharge home self-care, pt has her own transport home.
[2024-07-26] MEDS: Doxycycline Monohydrate 100 MG CAPSULE PO (12:36)
== END 2024-07-26 13:48 | disposition home or self-care (01) | DRG 603 ==
LOC: HO.ED 20:27 → HO.EDOVER 22:12 → HO.IMC 23:46
PROVIDERS: Physician Assistant Medical; Admitting Provider Student in an Organized Health Care Education/Training Program; Emergency Provider Emergency Medicine Emergency Medical Services; PCP Internal Medicine; Visit Provider Internal Medicine
DX: L03.116 Cellulitis of left lower limb (principal); I13.0 Hypertensive heart and chronic kidney disease with heart failure and stage 1 through stage 4 chronic kidney disease, or unspecified chronic kidney disease; I50.32 Chronic diastolic (congestive) heart failure; I87.323 Chronic venous hypertension (idiopathic) with inflammation of bilateral lower extremity; G47.33 Obstructive sleep apnea (adult) (pediatric); E66.01 Morbid (severe) obesity due to excess calories; I48.0 Paroxysmal atrial fibrillation; N18.30 Chronic kidney disease, stage 3 unspecified; Z68.38 Body mass index [BMI] 38.0-38.9, adult; Z79.01 Long term (current) use of anticoagulants; Z79.899 Other long term (current) drug therapy
CPT/HCPCS: 36415; 80048; 80053; 80202; 83605; 83735; 85025; 85027; 85610; 87040; 93971; 94660; 97161; 99211; 99285; J2543; J2919; J3370

== ENCOUNTER → 2024-07-23 18:18 | Outpatient (BNV) | payer MEDICARE, SELFPAY | PROVIDERS: Emergency Provider Emergency Medicine Emergency Medical Services; PCP Internal Medicine; Visit Provider Student in an Organized Health Care Education/Training Program | DX: L03.116 Cellulitis of left lower limb (principal); I87.2 Venous insufficiency (chronic) (peripheral); I50.30 Unspecified diastolic (congestive) heart failure; I48.0 Paroxysmal atrial fibrillation | CPT/HCPCS: 99222; 99232; 99233; 99239 ==

== ENCOUNTER 2024-07-27 10:47 | Outpatient (REF) | payer MEDICARE, SELFPAY ==
--- NOTE | ~2024-07-27 | MM_ITS ---
EXAMINATION: MM SCREENING DIGITAL BREAST TOMOSYNTHESIS, BILATERAL CLINICAL INFORMATION: Screening. Asymptomatic. COMPARISON: Mammography: Comparison is made with available priors TECHNIQUE: Digital breast mammography with tomosynthesis is performed in both the craniocaudal and mediolateral oblique views along with computer-aided detection (CAD). FINDINGS: There are scattered areas of fibroglandular density (ACR BI-RADS breast composition Category b). There are no significant masses, abnormal calcifications, or other abnormalities. MM/MM tomosynthesis screening BI IMPRESSION: No mammographic evidence of malignancy. ASSESSMENT: BI-RADS BI-RADS 1 - Negative RECOMMENDATION: Routine annual mammography screening. 1 year F/U This examination should not preclude the clinical evaluation of a suspicious palpable abnormality. This patient's information was entered into a reminder system with a target due date for their next mammogram. Electronically signed by: Nelly Herrera DO 08/14/2024 10:40 PM EDT
== END 2024-07-27 10:48 | disposition home or self-care (01) ==
LOC: HO.MAMMO 10:47
PROVIDERS: PCP Internal Medicine; Visit Provider Internal Medicine
DX: Z12.31 Encounter for screening mammogram for malignant neoplasm of breast (principal)
CPT/HCPCS: 77063; 77067

== ENCOUNTER → 2024-07-27 11:00 | Outpatient (BNV) | payer MEDICARE, SELFPAY | PROVIDERS: PCP Internal Medicine; Visit Provider Internal Medicine | DX: Z12.31 Encounter for screening mammogram for malignant neoplasm of breast (principal) | CPT/HCPCS: 77063; 77067 ==

== ENCOUNTER 2024-07-28 11:25 | Outpatient (AMB) | payer MEDICARE, SELFPAY ==
[2024-07-28 11:27] VITALS: BP 130/72; PULSE 57; BMI 39.5
--- NOTE | 2024-07-28 11:27 | MHC.OFFVIS ---
Vital Signs 07/28/24 11:27 Height 5 ft 5 in Weight 237 lb 10.533 oz BMI 39.5 BP 130/72 Blood Pressure Location Lt brachial Position Sitting Pulse 57 Pulse Source Monitor Intake Visit Reasons: 4 mth f/up per DC Intake Note: 4 mth f/up Pathology Lab Technician Required: No Accompanied by: Self / Same As Patient Allergies Sulfa (Sulfonamide Antibiotics) [SULFA(SULFONAMIDE ANTIBIOTICS)] Allergy (Unknown, Verified 07/28/24 14:05) RASH codeine Adverse Reaction (Verified 07/28/24 14:05) Vomiting oxycodone Adverse Reaction (Verified 07/28/24 14:05) Gastrointestinal Upset Medication List - Last Reconciled 07/28/24 by Bernard Butterfield MD acetaminophen 500 mg PO BID-QID PRN amiodarone 200 mg PO DAILY ascorbate calcium (vitamin C) 500 mg PO DAILY blood sugar diagnostic (AHAlife.comuch Ultra Test strips) 1 qd blood-glucose meter (Wantful Ultra2 Meter kit) As directed bumetanide 1 mg (1/2 x 2 mg) PO DAILY cholecalciferol (vitamin D3) 10 mcg PO DAILY cyanocobalamin (vitamin B-12) 500 mcg PO DAILY doxycycline hyclate 100 mg PO BID gabapentin 300 mg PO DAILY@0900 PRN gabapentin 300 mg PO BEDTIME lancets (VidAngelTouch Delica Lancets) test blood sugar once a day multivitamin 1 tab PO DAILY prednisone 40 mg (2 x 20 mg) PO DAILY warfarin 2.5 mg PO MOTUWEFRSA warfarin See Protocol 2.5 mg X5 DAYS/ 5MG X 2 DAYS ( and ) HPI Comments Details: 68-year-old female here for follow-up. She was seen for dyspnea on exertion and concern for clinical heart failure. She was seen by pulmonology and was started on Bumex. She was on flecainide which was stopped. This was mainly used for paroxysmal atrial fibrillation. She was experiencing a lot of palpitations and had concern for conduction issues on the EKG. Subsequent to that she got admitted to [facility] with kidney injury. Her Lasix dose was decreased. After this we did a left and right heart catheterization as outpatient which showed no coronary disease and normal filling pressures. During her admission at [facility] she was started on amiodarone for atrial fibrillation. She continued to be significantly short of breath. On discussing with her these symptoms are at least 4 to 5 years old. These have worsened progressively over this time. She has gained at least 70-80 lb in the last 3-4 years. She has chronic fatigue, She has no palpitations. She continues to have ALLEN. Patient was advised to do regular exercise and lose some weight. On follow-up she is doing well. She is denying any significant shortness of breath or chest discomfort. She is starting to go to a gym with her sister who will be a gym partner. She has been taking amiodarone for atrial fibrillation and is currently on Coumadin for anticoagulation. Does not have any significant orthopnea or PND. No significant peripheral edema. 09/08/2023: She returns for follow-up. Been exercising and is feeling better than before. No significant shortness of breath. Occasionally gets palpitations. She had left-sided sharp chest pain lasting for 5 minutes on last Friday. She is saying she has been active since then and has not had any further chest discomfort. LFTs and TSH are normal. June 2023 she had PFTs which showed restrictive picture due to obesity. 07/28/2024: Here for f/u. She unfortunately had a mechanical fall. She has been walking with a cane. She has no CP or dyspnea. [facility] Medical History Right shoulder pain Acute pain of left wrist Impaired fasting glucose Shortness of breath on exertion Vaccine refused by patient Elevated brain natriuretic peptide (BNP) level Anemia Hyperkalemia Morbid obesity Iliotibial band syndrome Lumbosacral radiculopathy due to osteoarthritis of spine History of deep vein thrombophlebitis of lower extremity Positive ALVIN (antinuclear antibody) CKD (chronic kidney disease) stage 3, GFR 30-59 ml/min Knee pain Osteoarthritis of right ankle and foot Lower back pain Ankle pain, right Postmenopausal Obesity Hip pain Venous insufficiency of both lower extremities Diverticulitis Peripheral vascular complication of surgical procedure Peripheral vascular disease Hyperlipidemia DVT (deep venous thrombosis) Diastolic heart failure Paroxysmal A-fib BERE (obstructive sleep apnea) Surgical History History of lithotripsy History of cardiac cath Hx of vascular surgery H/O hysterectomy for benign disease Family History Father Emphysema, unspecified Mother No problems noted. Brother Atrial fibrillation Sister Atrial fibrillation Sister Breast cancer Social History Household Members: None Housing: House Do you presently have visiting nurse or other home services: No Alcohol intake: never Patient Tobacco Use Status: Never used Tobacco service: No Current occupational status: retired and disabled Current occupation: rt handed Cognitive needs: No Hearing needs: No Vision needs: No Review of Systems Const Denies chills, Denies fatigue, Denies fever(s), Denies frequent falls, Denies weakness, Denies weight gain and Denies weight loss ENT Denies dizziness Card Denies chest pain, Denies leg edema, Denies lightheadedness, Denies palpitations, Denies dyspnea and Denies dyspnea on exertion Resp Denies cough, Denies dyspnea and Denies dyspnea on exertion GI Denies hematochezia Musc Denies abnormal gait, Denies muscle weakness, Denies numbness, Denies radiating pain into limb and Denies tingling Neuro Denies abnormal gait, Denies dizziness, Denies frequent falls, Denies numbness, Denies tingling and Denies weakness Endo Denies fatigue and Denies palpitations Physical Exam Vital Signs: Last Vital Signs Pulse 57 07/28/24 11:27 BP 130/72 07/28/24 11:27 BMI result Body Mass Index 39.5 GENERAL APPEARANCE: in no acute distress, obese. NECK/THYROID: no carotid bruit, no jugular venous distention. SKIN: no suspicious lesions, warm and dry. HEART: no murmurs, regular rate and rhythm, S1, S2 normal. LUNGS: clear to auscultation bilaterally. ABDOMEN: normal, bowel sounds present, soft, nontender, nondistended. EXTREMITIES: no clubbing, cyanosis. Mild edema. PERIPHERAL PULSES: equal. NEUROLOGIC: nonfocal, alert and oriented. Office Procedures EKG Details: Sinus bradycardia 57 beats per minute, left anterior fascicular block, QTC 441 milliseconds. [id number], Complete Assessment & Plan Assessment & Plan (1) Therapeutic drug monitoring: Code(s): Z51.81 - Encounter for therapeutic drug level monitoring Category: Medical (2) Paroxysmal A-fib: Code(s): I48.0 - Paroxysmal atrial fibrillation Category: Medical Plan 68-year-old female here for follow-up. She has background of paroxysmal atrial fibrillation. She is on amiodarone and Coumadin. Clinically euvolemic and not in heart failure. Continue same medications. Will need LFTs and TSH before next visit. f/u in few months. Orders: Orders TSH reflex Free T4 Today Z51.81 - Encounter for therapeutic drug level monitoring Liver Panel Today Z51.81 - Encounter for therapeutic drug level monitoring Coding Level of Care Code Est Pt Level 4 (15554) Diagnoses Therapeutic drug monitoring Z51.81 Paroxysmal A-fib I48.0 CPT Codes EKG - CPT: 46150-[id number], Complete ([id number])
== END 2024-07-28 11:45 | disposition home or self-care (01) ==
PROVIDERS: PCP Internal Medicine; Visit Provider Internal Medicine Cardiovascular Disease
DX: Z51.81 Encounter for therapeutic drug level monitoring (principal); I48.0 Paroxysmal atrial fibrillation
CPT/HCPCS: 93010; 99214

== ENCOUNTER → 2024-07-28 11:25 | Outpatient (BNVA) | payer MEDICARE, SELFPAY | PROVIDERS: PCP Internal Medicine; Visit Provider Internal Medicine Cardiovascular Disease | DX: I48.0 Paroxysmal atrial fibrillation (principal); Z51.81 Encounter for therapeutic drug level monitoring | CPT/HCPCS: 93005; 99212 ==

== ENCOUNTER 2024-07-28 13:47 | Outpatient (AMB) | payer MEDICARE, SELFPAY ==
--- NOTE | 2024-07-28 14:02 | MHC.PC.OV ---
Vital Signs 07/28/24 14:03 Height 5 ft 5 in Weight 237 lb 2 oz BMI 39.5 BP 136/84 Blood Pressure Location Rt brachial Position Sitting Pulse 65 Pulse Source Pulse Oximeter Pulse Oximetry (%) 93 Oxygen Delivery Method Room Air Intake Visit Reasons: [facility] 07/26/24 leg infection Allergies Sulfa (Sulfonamide Antibiotics) [SULFA(SULFONAMIDE ANTIBIOTICS)] Allergy (Unknown, Verified 08/01/24 19:02) RASH codeine Adverse Reaction (Verified 08/01/24 19:02) Vomiting oxycodone Adverse Reaction (Verified 08/01/24 19:02) Gastrointestinal Upset Medication List - Last Reconciled 08/01/24 by Annalee De La Torre MD acetaminophen 500 mg PO BID-QID PRN amiodarone 200 mg PO DAILY ascorbate calcium (vitamin C) 500 mg PO DAILY blood sugar diagnostic ([employer] Ultra Test strips) 1 qd blood-glucose meter ([employer] Ultra2 Meter kit) As directed bumetanide 1 mg (1/2 x 2 mg) PO DAILY cholecalciferol (vitamin D3) 10 mcg PO DAILY cyanocobalamin (vitamin B-12) 500 mcg PO DAILY doxycycline hyclate 100 mg PO BID gabapentin 300 mg PO DAILY@0900 PRN gabapentin 300 mg PO BEDTIME lancets ([email or web address] Delica Lancets) test blood sugar once a day multivitamin 1 tab PO DAILY warfarin 2.5 mg See Protocol PO MOTUWEFRSA warfarin See Protocol 2.5 mg X5 DAYS/ 5MG X 2 DAYS (TH and HANSON) Tobacco use date assessed: 07/28/24 Fall risk assessment: 1 Fall in past year Last assessed Fall Risk: 07/28/24 Dental Screening Dental Screen Date: 07/28/24 Did you have a dental visit in the last 12 months?: No Did you have a dental problem in the last 6 months where you did not have access to dental care?: No Was dental information given to patient?: Patient has dentist HPI [facility] 07/26/24 leg infection HPI Details 68-year-old female with pertinent history of DVT, paroxysmal atrial fibrillation on Coumadin, congestive heart failure with preserved ejection fraction, chronic venous insufficiency of bilateral lower extremities, BERE on CPAP, morbid obesity, here today for follow-up after recent discharge from [facility] 07/26/2024 for treatment cellulitis in left lower extremity. Patient had swelling of her left lower extremity after she tripped and fell proximally 2 weeks ago. She was seen in the ER on 07/16 , no fracture of the knee seen on x-ray. She was treated with IV vancomycin and steroids, with improvement in swelling and redness in left lower extremity . Doppler was negative for DVT. And did have some improvement. She was continued on Coumadin and amiodarone for her paroxysmal atrial fibrillation and history of DVT. Bumex was continued for treatment of her chronic diastolic CHF and was continued on her CPAP at night for her obstructive sleep apnea. Patient discharged home on 3 more days of p.o. prednisone and 5 more days of p.o. doxycycline, which she has now completed. Swelling, and redness in left lower extremity has completely resolved. Patient currently with no new complaints at present time [facility] Medical History (Updated 08/01/24 @ 19:12 by Annalee De La Torre MD) Impaired fasting glucose Vaccine refused by patient Elevated brain natriuretic peptide (BNP) level Anemia Morbid obesity Iliotibial band syndrome Lumbosacral radiculopathy due to osteoarthritis of spine History of deep vein thrombophlebitis of lower extremity Positive ALVIN (antinuclear antibody) CKD (chronic kidney disease) stage 3, GFR 30-59 ml/min Osteoarthritis of right ankle and foot Postmenopausal Venous insufficiency of both lower extremities Diverticulitis Peripheral vascular complication of surgical procedure Peripheral vascular disease Hyperlipidemia DVT (deep venous thrombosis) Diastolic heart failure Paroxysmal A-fib BERE (obstructive sleep apnea) Surgical History History of lithotripsy History of cardiac cath Hx of vascular surgery H/O hysterectomy for benign disease Family History Father Emphysema, unspecified Mother No problems noted. Brother Atrial fibrillation Sister Atrial fibrillation Sister Breast cancer Social History Household Members: None Housing: House Do you presently have visiting nurse or other home services: No Alcohol intake: never Patient Tobacco Use Status: Never used Tobacco service: No Current occupational status: retired and disabled Current occupation: rt handed Cognitive needs: No Hearing needs: No Vision needs: No Questionnaire PHQ-9 Over the last 2 weeks, how often have you been bothered by any of the following problems? 1. Little interest or pleasure in doing things: not at all 2. Feeling down, depressed, or hopeless: not at all 3. Trouble falling or staying asleep, or sleeping too much: not at all 4. Feeling tired or having little energy: not at all 5. Poor appetite or overeating: not at all 6. Feeling bad about yourself - or that you are a failure or have let yourself or your family down: not at all 7. Trouble concentrating on things, such as reading the newspaper or watching television: not at all 8. Moving or speaking so slowly that other people could have noticed. Or the opposite - being so fidgety or restless that you have been moving around a lot more than usual: not at all 9. Thoughts that you would be better off or of hurting yourself in some way: not at all Total score: 0 Source: Developed by Drs. cT Noonan, Janet Hinojosa, Isael Andrews and colleagues, with an educational tha from [employer]. Thrive Questionnaire Date Thrive assessed: 07/24/24 I am a: Patient What is your living situation today?: I have a steady place to live Within the past 12 months, did the food you bought not last and you didn't have the money to get more?: I choose not to answer this question Within the past 12 months, did you worry whether your food would run out before you got money to buy more?: I choose not to answer this question Do you have trouble paying for medicines?: No Do you have trouble getting transportation to medical appointments?: No Do you have trouble paying your heating and electricity bill?: No Do you have trouble taking care of your child, family member or friend?: No Do you have trouble with day-to-day activities such as bathing, preparing meals, shopping, managing finances, etc.?: No Are you currently unemployed and looking for a job?: No Are you interested in more education?: No Please select the resources that you would like help with: None Currently or been in a relationship where the following occur: No concerns reported THRIVE Score: 0 AUDIT C Alcohol Use Questionnaire (AUDIT-C) 1. How often do you have a drink containing alcohol?: Never 3. How often do you have six or more drinks on one occasion?: Never Total Score: 0 KELLEY-7 AMB Questionnaire KELLEY-7 Date KELLEY - 7 assessed: 11/29/22 Feeling nervous, anxious, or on edge: 0 = Not at all Not being able to stop or control worryin = Not at all Worrying too much about different things: 0 = Not at all Trouble relaxin = Not at all Being so restless that it is hard to sit still: 0 = Not at all Becoming easily annoyed or irritable: 0 = Not at all Feeling afraid as if something awful might happen: 0 = Not at all Total KELLEY-7 score (0-4 normal; 5-9 mild; 10-14 moderate; 15-21 severe): 0 Source: Developed by Drs. Tc Noonan, Janet Hinojosa, Isael Andrews and colleagues, with an educational tha from [employer]. Physical exam (Primary Care) Vital Signs: Last Vital Signs Pulse 65 07/28/24 14:03 BP 136/84 07/28/24 14:03 Pulse Ox 93 07/28/24 14:03 Oxygen Delivery Method Room Air 07/28/24 14:03 BMI result Body Mass Index 39.5 Tobacco/Smoking Status: Tobacco use Status Tobacco use date assessed 07/28/24 07/28/24 14:07 Patient Tobacco Use Status Never used Tobacco 07/28/24 14:07 PHQ-9: PHQ-9 Score PHQ-9: Total score 0 07/28/24 14:07 Thrive Assessment: Date of Thrive Assessment Date Thrive assessed 07/24/24 07/28/24 14:07 Currently or been in a relationship where the following occur: No concerns reported Assessment and Plan Assessment & Plan (1) History of cellulitis: Code(s): Z87.2 - Personal history of diseases of the skin and subcutaneous tissue Plan: Resolved with antibiotics, already completed (2) BERE (obstructive sleep apnea): Comment: f/u and Dr Lusiana Mesa Code(s): G47.33 - Obstructive sleep apnea (adult) (pediatric) Plan: Continue on CPAP, followed by Pulmonary (3) Paroxysmal A-fib: Code(s): I48.0 - Paroxysmal atrial fibrillation Plan: Followed by cardiology, recently seen by Dr. Willa joseph who continued her on amiodarone and Coumadin Coding Level of Care Code Est Pt Level 4 (11504) Complex EM visit Add On G2211 Diagnoses History of cellulitis Z87.2 BERE (obstructive sleep apnea) G47.33 Paroxysmal A-fib I48.0
[2024-07-28 14:03] VITALS: BP 136/84; PULSE 65; O2SAT 93; BMI 39.5
== END 2024-07-28 15:54 | disposition home or self-care (01) ==
PROVIDERS: PCP Internal Medicine; Visit Provider Internal Medicine
DX: G47.33 Obstructive sleep apnea (adult) (pediatric) (principal); I48.0 Paroxysmal atrial fibrillation; Z87.2 Personal history of diseases of the skin and subcutaneous tissue
CPT/HCPCS: 99214; G2211

== ENCOUNTER 2024-07-30 13:02 | Outpatient (AMB) | payer MEDICARE, SELFPAY ==
[2024-07-30 13:23] LABS: ~PT, ~INR - Anti Coag Clinic 4.9 (0.9-1.1)
--- NOTE | 2024-07-30 13:33 | MHC.OFFVISCO ---
Intake Intake Visit Reasons: Anticoagulation Allergies Sulfa (Sulfonamide Antibiotics) [SULFA(SULFONAMIDE ANTIBIOTICS)] Allergy (Unknown, Verified 07/30/24 13:16) RASH codeine Adverse Reaction (Verified 07/30/24 13:16) Vomiting oxycodone Adverse Reaction (Verified 07/30/24 13:16) Gastrointestinal Upset Medication List - Last Reconciled 07/30/24 by Mirna Trejo RN acetaminophen 500 mg PO BID-QID PRN amiodarone 200 mg PO DAILY ascorbate calcium (vitamin C) 500 mg PO DAILY blood sugar diagnostic ([employer] Ultra Test strips) 1 qd blood-glucose meter ([employer] Ultra2 Meter kit) As directed bumetanide 1 mg (1/2 x 2 mg) PO DAILY cholecalciferol (vitamin D3) 10 mcg PO DAILY cyanocobalamin (vitamin B-12) 500 mcg PO DAILY doxycycline hyclate 100 mg PO BID gabapentin 300 mg PO DAILY@0900 PRN gabapentin 300 mg PO BEDTIME lancets ([employer] Delica Lancets) test blood sugar once a day multivitamin 1 tab PO DAILY warfarin 2.5 mg PO MOTUWEFRSA warfarin See Protocol 2.5 mg X5 DAYS/ 5MG X 2 DAYS ( and ) Nursing Note INR 4.9? out of therapeutic range Medications and supplements reviewed Patient status: DOXYCYCLINE STARTED Friday07/26/24- SEEMS TO BE HELPING WILL BE DONE ON FRIDAY , PREDNISONE X 3 DAYS ONLY . still taking tylenol for pain daily Medications or supplements: OTHER MEDS THE SAME Diet: GOOD APPETITE Denies any signs and symptoms of bleeding or clotting or unusual bruising Bleeding, bruising, clotting discussed Nutritional guidance given: greens today and tomorrow Dose: hold x 2 days due to antbx completing SAt / then decrease to 5mg x 1 day/ 2.5mg x 6 days because of tylenol F/U INR Date: 08/03/24 ?? Patient verbalizing understanding of instructions given. 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
== END 2024-07-30 13:37 | disposition home or self-care (01) ==
LOC: HO.ACS 13:02
PROVIDERS: PCP Internal Medicine; Visit Provider Internal Medicine
DX: Z79.01 Long term (current) use of anticoagulants (principal)

== ENCOUNTER → 2024-07-30 13:02 | Outpatient (BNVA) | payer MEDICARE, SELFPAY | PROVIDERS: PCP Internal Medicine; Visit Provider Internal Medicine | DX: I48.0 Paroxysmal atrial fibrillation (principal); Z79.01 Long term (current) use of anticoagulants; Z51.81 Encounter for therapeutic drug level monitoring | CPT/HCPCS: 85610; 99211 ==

== ENCOUNTER 2024-08-03 13:26 | Outpatient (AMB) | payer MEDICARE, SELFPAY ==
--- NOTE | 2024-08-03 14:03 | MHC.OFFVISCO ---
Intake Intake Visit Reasons: Anticoagulation Allergies Sulfa (Sulfonamide Antibiotics) [SULFA(SULFONAMIDE ANTIBIOTICS)] Allergy (Unknown, Verified 08/03/24 13:58) RASH codeine Adverse Reaction (Verified 08/03/24 13:58) Vomiting oxycodone Adverse Reaction (Verified 08/03/24 13:58) Gastrointestinal Upset Medication List - Last Reconciled 08/03/24 by Falguni Marti, RN acetaminophen 500 mg PO BID-QID PRN amiodarone 200 mg PO DAILY ascorbate calcium (vitamin C) 500 mg PO DAILY blood sugar diagnostic ([employer] Ultra Test strips) 1 qd blood-glucose meter ([employer] Ultra2 Meter kit) As directed bumetanide 1 mg (1/2 x 2 mg) PO DAILY cholecalciferol (vitamin D3) 10 mcg PO DAILY cyanocobalamin (vitamin B-12) 500 mcg PO DAILY gabapentin 300 mg PO DAILY@0900 PRN gabapentin 300 mg PO BEDTIME lancets ([employer] Delica Lancets) test blood sugar once a day multivitamin 1 tab PO DAILY warfarin 2.5 mg See Protocol PO MOTUWEFRSA warfarin See Protocol 2.5 mg X5 DAYS/ 5MG X 2 DAYS ( and ) Nursing Note INR 4.0-?? out of therapeutic range - 2-3 Medications and supplements reviewed Patient status: pt s/p fall a few weeks ago, s/p doxycycline and prednisone, finished antibiotic friday Medications or supplements: no changes, tylenol prn, pt states taking less as pain is less Diet: appetite is good Denies any signs and symptoms of bleeding or clotting or unusual bruising Bleeding, bruising, clotting discussed - bruising is less Nutritional guidance given: eat cooked greens to lower inr, no reds for 2-3 days Dose: hold warfarin today then cont 5mg x 2, 2.5mg x 5 F/U INR Date : friday08/06/24 due to travel? Patient verbalizing understanding of instructions given. 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
[2024-08-03 14:05] LABS: Prothrombin Time Whole Bld POC 48.2 sec (11.1-13.5)
== END 2024-08-03 14:30 | disposition home or self-care (01) ==
LOC: HO.ACS 13:26
PROVIDERS: PCP Internal Medicine; Visit Provider Internal Medicine
DX: Z79.01 Long term (current) use of anticoagulants (principal)

== ENCOUNTER → 2024-08-03 13:26 | Outpatient (BNVA) | payer MEDICARE, SELFPAY | PROVIDERS: PCP Internal Medicine; Visit Provider Internal Medicine | DX: I48.0 Paroxysmal atrial fibrillation (principal); Z79.01 Long term (current) use of anticoagulants; Z51.81 Encounter for therapeutic drug level monitoring | CPT/HCPCS: 85610; 99211 ==

== ENCOUNTER 2024-08-06 10:05 | Outpatient (AMB) | payer MEDICARE, SELFPAY ==
[2024-08-06 10:20] LABS: Prothrombin Time Whole Bld POC 37.9 sec (11.1-13.5); ~PT, ~INR - Anti Coag Clinic 3.2 (0.9-1.1)
--- NOTE | 2024-08-06 10:27 | MHC.OFFVISCO ---
Intake Intake Visit Reasons: Anticoagulation Allergies Sulfa (Sulfonamide Antibiotics) [SULFA(SULFONAMIDE ANTIBIOTICS)] Allergy (Unknown, Verified 08/06/24 10:10) RASH codeine Adverse Reaction (Verified 08/06/24 10:10) Vomiting oxycodone Adverse Reaction (Verified 08/06/24 10:10) Gastrointestinal Upset Medication List - Last Reconciled 08/06/24 by Theresa Philip, SCARLET acetaminophen 500 mg PO BID-QID PRN amiodarone 200 mg PO DAILY ascorbate calcium (vitamin C) 500 mg PO DAILY blood sugar diagnostic ([employer] Ultra Test strips) 1 qd blood-glucose meter ([employer] Ultra2 Meter kit) As directed bumetanide 1 mg (1/2 x 2 mg) PO DAILY cholecalciferol (vitamin D3) 10 mcg PO DAILY cyanocobalamin (vitamin B-12) 500 mcg PO DAILY gabapentin 300 mg PO DAILY@0900 PRN gabapentin 300 mg PO BEDTIME lancets ([employer] Delica Lancets) test blood sugar once a day multivitamin 1 tab PO DAILY warfarin See Protocol 2.5 mg X5 DAYS/ 5MG X 2 DAYS ( and HANSON) Nursing Note INR 3.2?out of therapeutic range 2-3 Last INR 4.0 and 4.6 before that. Had been on doxycycline and prednisone for cellulitis of LLE. Completed 1 wk ago. Medications and supplements reviewed Patient status: Still using a cane and c/o back pain. Medications or supplements: no change Diet: has been having a lot of greens but will only have extra greens X 1 more day Denies any signs and symptoms of bleeding or clotting or unusual bruising Bleeding, bruising, clotting discussed Nutritional guidance given: greens today then will balance foods that raise and lower the INR Dose: resume usual dose of 2.5mg X 5 days and 5mg X 2 days F/U INR Date : 3 weeks. Would prefer sooner but pt is going away leaving tomorrow for 3 weeks?? Patient verbalizing understanding of instructions given. Anti-Coag Initial Assessment Social Hx Patient Tobacco Use Status: Never used Tobacco alcohol intake: never Coding Level of Care Code Est Patient Level 1 Diagnoses Current use of anticoagulant therapy Z79.01 Assessment & Plan Assessment & Plan (1) Current use of anticoagulant therapy: Code(s): Z79.01 - correction (current) use of anticoagulants Category: Medical
== END 2024-08-06 10:33 | disposition home or self-care (01) ==
LOC: HO.ACS 10:05
PROVIDERS: PCP Internal Medicine; Visit Provider Internal Medicine
DX: Z79.01 Long term (current) use of anticoagulants (principal)

== ENCOUNTER → 2024-08-06 10:05 | Outpatient (BNVA) | payer MEDICARE, SELFPAY | PROVIDERS: PCP Internal Medicine; Visit Provider Internal Medicine | DX: I48.0 Paroxysmal atrial fibrillation (principal); Z79.01 Long term (current) use of anticoagulants; Z51.81 Encounter for therapeutic drug level monitoring | CPT/HCPCS: 85610; 99211 ==

== ENCOUNTER 2024-09-08 09:19 | Outpatient (AMB) | payer MEDICARE, SELFPAY ==
--- NOTE | 2024-09-08 09:25 | MHC.OFFVISCO ---
Intake Intake Visit Reasons: Anticoagulation Allergies Sulfa (Sulfonamide Antibiotics) [SULFA(SULFONAMIDE ANTIBIOTICS)] Allergy (Unknown, Verified 09/08/24 09:20) RASH codeine Adverse Reaction (Verified 09/08/24 09:20) Vomiting oxycodone Adverse Reaction (Verified 09/08/24 09:20) Gastrointestinal Upset Medication List - Last Reconciled 09/08/24 by Falguni Marti, RN acetaminophen 500 mg PO BID-QID PRN amiodarone 200 mg PO DAILY ascorbate calcium (vitamin C) 500 mg PO DAILY blood sugar diagnostic ([employer] Ultra Test strips) 1 qd blood-glucose meter ([employer] Ultra2 Meter kit) As directed bumetanide 1 mg (1/2 x 2 mg) PO DAILY cholecalciferol (vitamin D3) 10 mcg PO DAILY cyanocobalamin (vitamin B-12) 500 mcg PO DAILY gabapentin 300 mg PO DAILY@0900 PRN gabapentin 300 mg PO BEDTIME lancets ([employer] Delica Lancets) test blood sugar once a day multivitamin 1 tab PO DAILY warfarin See Protocol 2.5 mg X5 DAYS/ 5MG X 2 DAYS ( and ) Nursing Note INR: 2.4- in therapeutic range of 2-3 Medications and supplements reviewed- tylenol and gabapentin prn No changes in health, diet, medications, or supplements, Denies any signs and symptoms of bleeding or bruising or clotting. 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
[2024-09-08 09:26] LABS: Prothrombin Time Whole Bld POC 28.9 sec (11.1-13.5); ~PT, ~INR - Anti Coag Clinic 2.4 (0.9-1.1)
== END 2024-09-08 09:33 | disposition home or self-care (01) ==
LOC: HO.ACS 09:19
PROVIDERS: PCP Internal Medicine; Visit Provider Internal Medicine
DX: Z79.01 Long term (current) use of anticoagulants (principal)

== ENCOUNTER 2024-09-08 09:59 | Outpatient (AMB) | payer MEDICARE, SELFPAY ==
--- NOTE | 2024-09-08 10:24 | MHC.OFFWIV ---
Intake Vital Signs 09/08/24 10:26 Height 5 ft 5 in Weight 240 lb BMI 39.9 BP 120/88 Blood Pressure Location Lt brachial Position Sitting Pulse 64 Pulse Source Pulse Oximeter Pulse Oximetry (%) 96 Oxygen Delivery Method Room Air Intake Visit Reasons: EP pain on RT foot Intake Note: Patient here for right foot pain which started about 2 weeks ago. Patient Tobacco Use Status: Never used Tobacco Allergies Sulfa (Sulfonamide Antibiotics) [SULFA(SULFONAMIDE ANTIBIOTICS)] Allergy (Unknown, Verified 09/08/24 10:26) RASH codeine Adverse Reaction (Verified 09/08/24 10:) Vomiting oxycodone Adverse Reaction (Verified 09/08/24 10:) Gastrointestinal Upset Do you need a note to return to daycare/school/sports/work: No HPI EP pain on RT foot HPI Details This note is constructed using voice recognition software. While every effort has been made to ensure accuracy, nuclear medical technologist errors may have been included. The patient is a 68 year old female who presents to the clinic today with right foot pain for the last 2 weeks. She does report that 2-3 years ago she was diagnosed with arthritis in the foot and ankle after an injury. She also notes that about 2 months ago she fell injuring her left leg. Approximately 2 weeks ago she noticed that the bottom of her foot, and radiating over the top of her foot started having pain. She notes that the pain is more throbbing in nature with some occasional sharp stabbing sensations. She did not have any additional injury. She has tried Tylenol with no relief. She typically uses a cane, and does not find her ambulation to be any more difficult. FORMERLY [facility], [facility] Medical History (Updated 08/01/24 @ 19:12 by Annalee De La Torre MD) Impaired fasting glucose Vaccine refused by patient Elevated brain natriuretic peptide (BNP) level Anemia Morbid obesity Iliotibial band syndrome Lumbosacral radiculopathy due to osteoarthritis of spine History of deep vein thrombophlebitis of lower extremity Positive LAVIN (antinuclear antibody) CKD (chronic kidney disease) stage 3, GFR 30-59 ml/min Osteoarthritis of right ankle and foot Postmenopausal Venous insufficiency of both lower extremities Diverticulitis Peripheral vascular complication of surgical procedure Peripheral vascular disease Hyperlipidemia DVT (deep venous thrombosis) Diastolic heart failure Paroxysmal A-fib BERE (obstructive sleep apnea) Surgical History History of lithotripsy History of cardiac cath Hx of vascular surgery H/O hysterectomy for benign disease Family History Father Emphysema, unspecified Mother No problems noted. Brother Atrial fibrillation Sister Atrial fibrillation Sister Breast cancer Social History Household Members: None Housing: House Do you presently have visiting nurse or other home services: No Alcohol intake: never Patient Tobacco Use Status: Never used Tobacco service: No Current occupational status: retired and disabled Current occupation: rt handed Cognitive needs: No Hearing needs: No Vision needs: No Review of Systems Const All systems reviewed & are unremarkable except as noted in HPI and below Physical Exam Vital Signs: Last Vital Signs Pulse 64 09/08/24 10:26 BP 120/88 09/08/24 10:26 Pulse Ox 96 09/08/24 10:26 Oxygen Delivery Method Room Air 09/08/24 10:26 BMI result Body Mass Index 39.9 Const General: cooperative, healthy appearing, comfortable, no acute distress and well developed Orientation/consciousness: patient oriented x3 Limitations: no limitations Resp Effort & Inspection: normal respiratory effort and able to speak in complete sentences Skin Other: No ecchymosis, erythema, or edema. General skin exam: no rashes or lesions noted Neuro General: patient oriented x3 Extrem Other: Right ankle full range of motion, including flexion, extension. Tenderness along plantar fascia on right. Of note she has a flat arch to her foot. Assessment & Plan Assessment & Plan (1) Osteoarthritis of right ankle and foot: Code(s): M19.071 - Primary osteoarthritis, right ankle and foot Plan: May be in part contributing to the pain that she is experiencing today. X-ray ordered to evaluate for worsening. (2) Right foot pain: Code(s): M79.671 - Pain in right foot Plan: Unable to take NSAIDs due to blood thinners. Advised use of Tylenol, ice, rest for symptomatic management. Additionally we will obtain x-rays to rule out any other contributing factors. It is also entirely likely that in addition to potential plantar fasciitis that she may be dealing with symptoms of her osteoarthritis. Given her recent falls, I advised her to consider follow up with her primary care provider for consideration of physical therapy for strength training and prevention, which she reports she will take under advisement. Plan See above for full details and plan. Orders: Orders XR foot RT min 3V Today M19.071 - Primary osteoarthritis, right ankle and foot, M79.671 - Pain in right foot Coding Level of Care Code Est Pt Level 4 (00193) Diagnoses Osteoarthritis of right ankle and foot M19.071 Right foot pain M79.671
[2024-09-08 10:26] VITALS: BP 120/88; PULSE 64; O2SAT 96; BMI 39.9
== END 2024-09-08 11:12 | disposition home or self-care (01) ==
PROVIDERS: PCP Internal Medicine; Visit Provider Registered Nurse
DX: M19.071 Primary osteoarthritis, right ankle and foot (principal); M79.671 Pain in right foot

== ENCOUNTER 2024-09-08 10:46 | Outpatient (REF) | payer MEDICARE, SELFPAY ==
--- NOTE | ~2024-09-08 | XR_ITS ---
EXAMINATION: XR FOOT, RIGHT CLINICAL INFORMATION: Right foot pain COMPARISON: 06/23/2022 TECHNIQUE: AP, lateral, and oblique views of the right foot. FINDINGS: No fracture or malalignment. There is a heel spur. No significant change. XR/XR foot RT min 3V IMPRESSION: Heel spur. No significant change. Electronically signed by: Lex Rain MD 09/08/2024 02:17 PM EDT
== END 2024-09-08 10:47 | disposition home or self-care (01) ==
LOC: HO.HMGCX 10:46
PROVIDERS: PCP Internal Medicine; Visit Provider Registered Nurse
DX: M79.671 Pain in right foot (principal); M19.071 Primary osteoarthritis, right ankle and foot; I48.0 Paroxysmal atrial fibrillation; Z51.81 Encounter for therapeutic drug level monitoring; Z79.01 Long term (current) use of anticoagulants
CPT/HCPCS: 73630; 85610; 99211; 99212

== ENCOUNTER 2024-09-20 10:22 | Outpatient (AMB) | payer MEDICARE, SELFPAY ==
[2024-09-20 10:42] VITALS: BP 138/80; PULSE 54; O2SAT 96; BMI 39.9
--- NOTE | 2024-09-20 10:42 | A.OFFPC_ITS ---
Vital Signs 09/20/24 10:42 Height 5 ft 5 in Weight 240 lb BMI 39.9 BP 138/80 Blood Pressure Location Rt brachial Position Sitting Pulse 54 Pulse Source Pulse Oximeter Pulse Oximetry (%) 96 Oxygen Delivery Method Room Air Intake Visit Reasons: PE per Dr. Fernandez Intake Note: Pt is here today for her PE:Last mammogram 07/27/24, bone density scan 05/23/21, colonoscopy 04/04/14 Allergies Sulfa (Sulfonamide Antibiotics) [SULFA(SULFONAMIDE ANTIBIOTICS)] Allergy (Unknown, Verified 09/20/24 11:04) RASH codeine Adverse Reaction (Verified 09/20/24 11:04) Vomiting oxycodone Adverse Reaction (Verified 09/20/24 11:04) Gastrointestinal Upset Medication List - Last Reconciled 09/20/24 by Annalee De La Torre MD amiodarone 200 mg PO DAILY ascorbate calcium (vitamin C) 500 mg PO DAILY bumetanide 1 mg (1/2 x 2 mg) PO DAILY cholecalciferol (vitamin D3) 10 mcg PO DAILY cyanocobalamin (vitamin B-12) 500 mcg PO DAILY gabapentin 300 mg PO DAILY@0900 PRN multivitamin 1 tab PO DAILY warfarin See Protocol 2.5 mg X5 DAYS/ 5MG X 2 DAYS (TH and ) Tobacco use date assessed: 09/20/24 Fall risk assessment: 1 Fall in past year Last assessed Fall Risk: 09/20/24 Dental Screening Dental Screen Date: 09/20/24 Did you have a dental visit in the last 12 months?: No Did you have a dental problem in the last 6 months where you did not have access to dental care?: No Was dental information given to patient?: Patient has dentist HPI PE per Dr. Fernandez HPI Details 68 year-old female with pertinent histor y of DVT, paroxysmal atrial fibrillation on Coumadin, congestive heart failure with preserved ejection fraction, chronic venous insufficiency of bilateral lower extremities, BERE on CPAP, morbid obesity, here today for a physical exam She is upto evgeny with her screening mammogram last done 07/27/24, she had a bone density scan on 05/23/21 showing osteoporosis in left femoral neck and lumbar spine, and osteopenia in left femur repeat, colonoscopy 04/04/14 [facility] Medical History (Updated 09/20/24 @ 11:41 by Annalee De La Torre MD) History of kidney stones Dyslipidemia Osteoporosis Impaired fasting glucose Vaccine refused by patient Elevated brain natriuretic peptide (BNP) level Anemia Morbid obesity Iliotibial band syndrome Lumbosacral radiculopathy due to osteoarthritis of spine History of deep vein thrombophlebitis of lower extremity Positive ALVIN (antinuclear antibody) CKD (chronic kidney disease) stage 3, GFR 30-59 ml/min Osteoarthritis of right ankle and foot Postmenopausal Venous insufficiency of both lower extremities Diverticulitis Peripheral vascular complication of surgical procedure Peripheral vascular disease Hyperlipidemia DVT (deep venous thrombosis) Diastolic heart failure Paroxysmal A-fib BERE (obstructive sleep apnea) Surgical History History of lithotripsy History of cardiac cath Hx of vascular surgery H/O hysterectomy for benign disease Family History Father Emphysema, unspecified Mother No problems noted. Brother Atrial fibrillation Sister Atrial fibrillation Sister Breast cancer Social History Household Members: None Housing: House Do you presently have visiting nurse or other home services: No Alcohol intake: never Patient Tobacco Use Status: Never used Tobacco e-Cigarette/Vaping Use: Never Used service: No Current occupational status: retired and disabled Current occupation: rt handed Cognitive needs: No Hearing needs: No Vision needs: Yes Questionnaire PHQ-9 Over the last 2 weeks, how often have you been bothered by any of the following problems? Depression Screening Interpretation: Negative Depression Screening Done: Yes Source: Developed by Drs. Tc Noonan, Janet Hinojosa, Isael Andrews and colleagues, with an educational tha from [employer]. Thrive Questionnaire Date Thrive assessed: 07/28/24 I am a: Patient What is your living situation today?: I have a steady place to live Within the past 12 months, did the food you bought not last and you didn't have the money to get more?: I choose not to answer this question Within the past 12 months, did you worry whether your food would run out before you got money to buy more?: I choose not to answer this question Do you have trouble paying for medicines?: No Do you have trouble getting transportation to medical appointments?: No Do you have trouble paying your heating and electricity bill?: No Do you have trouble taking care of your child, family member or friend?: No Do you have trouble with day-to-day activities such as bathing, preparing meals, shopping, managing finances, etc.?: No Are you currently unemployed and looking for a job?: No Are you interested in more education?: No Please select the resources that you would like help with: None Currently or been in a relationship where the following occur: No concerns reported THRIVE Score: 0 AUDIT C Alcohol Use Questionnaire (AUDIT-C) 1. How often do you have a drink containing alcohol?: Never Total Score: 0 KELLEY-7 AMB Questionnaire KELLEY-7 Date KELLEY - 7 assessed: 11/29/22 Source: Developed by Drs. Tc Noonan, Janet Hinojosa, Isael Andrews and colleagues, with an educational tha from [employer]. Review of Systems Const All systems reviewed & are unremarkable except as noted in HPI and below Eyes Reports no additional complaints ENT Reports no additional complaints Card Denies chest pain at rest, Denies chest pain with activity, Denies lightheadedness, Denies palpitations, Denies dyspnea and Reports dyspnea on exertion Resp Denies cough, Denies dyspnea and Reports dyspnea on exertion GI Denies hematochezia and Denies change in stool character Reports no additional complaints Musc Denies abnormal gait, Denies limited range of motion, Denies muscle cramps, Denies muscle weakness, Denies numbness, Denies radiating pain into limb, Denies stiffness and Denies tingling Skin/Breast Denies breast pain, Denies breast mass and Denies rash Neuro Denies abnormal gait, Denies numbness and Denies tingling Psych Reports no additional complaints Endo Denies palpitations Tj/Lymph Reports no additional complaints Aller/Immun Reports no additional complaints Physical exam (Primary Care) Vital Signs: Last Vital Signs Pulse 54 09/20/24 10:42 BP 138/80 09/20/24 10:42 Pulse Ox 96 09/20/24 10:42 Oxygen Delivery Method Room Air 09/20/24 10:42 BMI result Body Mass Index 39.9 Tobacco/Smoking Status: Tobacco use Status Tobacco use date assessed 09/20/24 09/20/24 10:51 Patient Tobacco Use Status Never used Tobacco 09/20/24 10:44 e-Cigarette/Vaping Use Never Used 09/20/24 10:51 Depression Screening Interpretation: Negative Thrive Assessment: Date of Thrive Assessment Date Thrive assessed 07/28/24 09/20/24 10:44 Currently or been in a relationship where the following occur: No concerns reported Advance Care Planning discussion: Completed/Scanned Date of discussion: 09/20/24 Who was present: patient Forms completed: Health Care Proxy and MOLST Time spent: 16-45 minutes Actual minutes spent: 3 Const General: comfortable, no acute distress and alert Orientation/consciousness: patient oriented x3 HENMT Ears: external ears normal General nose exam: Normal external nose present and No nasal discharge present Mouth: oropharynx normal and moist mucous membranes Eyes General: appearance normal, both eyes and all related structures Neck Neck: Yes full ROM, Yes no lymphadenopathy and Yes supple Chest Breast/axilla palpation: normal palpation of the breasts Resp Effort & Inspection: normal respiratory effort and able to speak in complete sentences Auscultation: clear to auscultation bilaterally Cardio Rate: regular rate Rhythm: regular rhythm Heart sounds: S1 normal heart sound present and S2 normal heart sound present GI Palpation (GI): Soft to palpation, nontender and no masses Auscultation: normal bowel sounds General: Yes no CVA tenderness and Yes deferred (pt declined) Back/Spine/Pelvis Back: no CVA tenderness and No back tenderness Skin General skin exam: no rashes or lesions noted Neuro General: patient oriented x3, gait normal and moves all extremities Cognition (Neuro): normal cognition Extrem General: Yes full ROM, Yes no pedal edema and Yes normal gait Coding Level of Care Code Est Pt Prev Care >65y(48067) Diagnoses Impaired fasting glucose R73.01 BERE (obstructive sleep apnea) G47.33 CKD (chronic kidney disease) stage 3, GFR 30-59 ml/min N18.30 Paroxysmal A-fib I48.0 Current use of anticoagulant therapy Z79.01 Advanced directives, counseling/discussion Z71.89 Annual visit for general adult medical examination with abnormal findings Z00.01 Colon cancer screening Z12.11 Osteoporosis M81.0 Restless legs syndrome G25.81 Vaccine refused by patient Z28.20 Dyslipidemia E78.5 Additional Codes Vital Signs *Quality* - Advance Care Planning discussion: Completed/Scanned ( [id number]) Vital Signs *Quality* - Time spent: 16-45 minutes ([id number]) Assessment & Plan Assessment & Plan (1) Impaired fasting glucose: Code(s): R73.01 - Impaired fasting glucose Category: Medical Plan: Your previous fasting blood sugars were elevated above 100 mg/dL. Impaired glucose metabolism increases the risk for developing diabetes mellitus type 2, as well as heart attack and stroke later on. Lifestyle changes that promotes weight loss, healthy eating habits, and regular exercise are important, and can prevent the progression to diabetes (2) BERE (obstructive sleep apnea): Comment: f/u and Dr Luisana Mesa Code(s): G47.33 - Obstructive sleep apnea (adult) (pediatric) Category: Medical Plan: Followed by [facility] sleep clinic (3) CKD (chronic kidney disease) stage 3, GFR 30-59 ml/min: Code(s): N18.30 - Chronic kidney disease, stage 3 unspecified Category: Medical Plan: Followed by Nephrology (4) Paroxysmal A-fib: Code(s): I48.0 - Paroxysmal atrial fibrillation Category: Medical Plan: Followed by cardiology currently on amiodarone and Coumadin (5) Current use of anticoagulant therapy: Code(s): Z79.01 - halfway (current) use of anticoagulants Category: Medical Plan: Currently on Coumadin, [place] [facility] (6) Advanced directives, counseling/discussion: Code(s): Z71.89 - Other specified counseling Plan: MOLST and healthcare proxy form completed today (7) Annual visit for general adult medical examination with abnormal findings: Code(s): Z00.01 - Encounter for general adult medical examination with abnormal findings Plan: Fasting labs ordered today, up-to-date with her screening mammogram, will repeat another bone density scan. Not want to get a screening colonoscopy but would like to get Cologuard testing instead will call back with her new address as soon as available. Does not want to get any vaccinations (8) Colon cancer screening: Code(s): Z12.11 - Encounter for screening for malignant neoplasm of colon Plan: Does not want to get screening colonoscopy but do the Cologuard test. Patient states that she is in the process of moving residences and would call us back with her new address so that we can send a Cologuard kit there (9) Osteoporosis: Code(s): M81.0 - Age-related osteoporosis without current pathological fracture Category: Medical Plan: Had a bone density scan done in 2020 ordered by previous PCP which showed osteoporosis. However no treatment was initiated as patient has been in and out of the hospital with multiple medical problems. No history fractures. Repeat another bone density scan (10) Restless legs syndrome: Code(s): G25.81 - Restless legs syndrome Category: Medical Plan: On gabapentin 300 mg at bedtime (11) Vaccine refused by patient: Code(s): Z28.20 - Immunization not carried out because of patient decision for uns pecified reason Category: Medical Plan: Declined vaccinations (12) Dyslipidemia: Code(s): E78.5 - Hyperlipidemia, unspecified Category: Medical Plan: Repeat fasting lipid panel, reinforced importance of following a low cholesterol diet Orders: Orders XR DEXA axial skeleton 09/20/24 M81.0 - Age-related osteoporosis without current pathological fracture Hemoglobin A1c 09/20/24 E66.01 - Morbid (severe) obesity due to excess calories, E78.5 - Hyperlipidemia, unspecified, I50.30 - Unspecified diastolic (congestive) heart failure, I87.2 - Venous insufficiency (chronic) (peripheral), M81.0 - Age-related osteoporosis without current pathological fracture, N18.30 - Chronic kidney disease, stage 3 unspecified, R73.01 - Impaired fasting glucose, Z28.20 - Immunization not carried out because of patient decision for unspecified reason, Z87.442 - Personal history of urinary calculi Lipid Panel 09/20/24 E66.01 - Morbid (severe) obesity due to excess calories, E78.5 - Hyperlipidemia, unspecified, I50.30 - Unspecified diastolic (congestive) heart failure, I87.2 - Venous insufficiency (chronic) (peripheral), M81.0 - Age- related osteoporosis without current pathological fracture, N18.30 - Chronic kidney disease, stage 3 unspecified, R73.01 - Impaired fasting glucose, Z28.20 - Immunization not carried out because of patient decision for unspecified reason, Z87.442 - Personal history of urinary calculi Vitamin D 25-OH Total 09/20/24 E66.01 - Morbid (severe) obesity due to excess calories, E78.5 - Hyperlipidemia, unspecified, I50.30 - Unspecified diastolic (congestive) heart failure, I87.2 - Venous insufficiency (chronic) (peripheral), M81.0 - Age-related osteoporosis without current pathological fracture, N18.30 - Chronic kidney disease, stage 3 unspecified, R73.01 - Impaired fasting glucose, Z28.20 - Immunization not carried out because of patient decision for unspecified reason, Z87.442 - Personal history of urinary calculi Basic Metabolic Panel Fasting 09/20/24 E66.01 - Morbid (severe) obesity due to excess calories, E78.5 - Hyperlipidemia, unspecified, I50.30 - Unspecified diastolic (congestive) heart failure, I87.2 - Venous insufficiency (chronic) (peripheral), M81.0 - Age-related osteoporosis without current pathological fracture, N18.30 - Chronic kidney disease, stage 3 unspecified, R73.01 - Impaired fasting glucose, Z28.20 - Immunization not carried out because of patient decision for unspecified reason, Z87.442 - Personal history of urinary calculi Aspartate Amino Transferase 09/20/24 E66.01 - Morbid (severe) obesity due to excess calories, E78.5 - Hyperlipidemia, unspecified, I50.30 - Unspecified diastolic (congestive) heart failure, I87.2 - Venous insufficiency (chronic) (peripheral), M81.0 - Age-related osteoporosis without current pathological fracture, N18.30 - Chronic kidney disease, stage 3 unspecified, R73.01 - Impaired fasting glucose, Z28.20 - Immunization not carried out because of patient decision for unspecified reason, Z87.442 - Personal history of urinary calculi Alanine Aminotransferase 09/20/24 E66.01 - Morbid (severe) obesity due to excess calories, E78.5 - Hyperlipidemia, unspecified, I50.30 - Unspecified diastolic (congestive) heart failure, I87.2 - Venous insufficiency (chronic) (peripheral), M81.0 - Age-related osteoporosis without current pathological fracture, N18.30 - Chronic kidney disease, stage 3 unspecified, R73.01 - Impaired fasting glucose, Z28.20 - Immunization not carried out because of patient decision for unspecified reason, Z87.442 - Personal history of urinary calculi Vitamin B12 and Folate 09/20/24 E66.01 - Morbid (severe) obesity due to excess calories, E78.5 - Hyperlipidemia, unspecified, I50.30 - Unspecified diastolic (congestive) heart failure, I87.2 - Venous insufficiency (chronic) (peripheral), M81.0 - Age-related osteoporosis without current pathological fracture, N18.30 - Chronic kidney disease, stage 3 unspecified, R73.01 - Impaired fasting glucose, Z28.20 - Immunization not carried out because of patient decision for unspecified reason, Z87.442 - Personal history of urinary calculi
== END 2024-09-20 11:43 | disposition home or self-care (01) ==
PROVIDERS: PCP Internal Medicine; Visit Provider Internal Medicine
DX: R73.01 Impaired fasting glucose (principal); N18.30 Chronic kidney disease, stage 3 unspecified; I48.0 Paroxysmal atrial fibrillation; G47.33 Obstructive sleep apnea (adult) (pediatric); Z79.01 Long term (current) use of anticoagulants; Z12.11 Encounter for screening for malignant neoplasm of colon; M81.0 Age-related osteoporosis without current pathological fracture; G25.81 Restless legs syndrome; Z28.20 Immunization not carried out because of patient decision for unspecified reason; E78.5 Hyperlipidemia, unspecified

== ENCOUNTER → 2024-09-20 10:22 | Outpatient (BNVA) | payer MEDICARE, SELFPAY | PROVIDERS: PCP Internal Medicine; Visit Provider Internal Medicine | DX: R73.01 Impaired fasting glucose (principal); G47.33 Obstructive sleep apnea (adult) (pediatric); I48.0 Paroxysmal atrial fibrillation; N18.30 Chronic kidney disease, stage 3 unspecified; M81.0 Age-related osteoporosis without current pathological fracture; G25.81 Restless legs syndrome; E78.5 Hyperlipidemia, unspecified; Z28.20 Immunization not carried out because of patient decision for unspecified reason; Z71.89 Other specified counseling; Z79.01 Long term (current) use of anticoagulants | CPT/HCPCS: 96127; 99212 ==

== ENCOUNTER 2024-09-28 13:02 | Outpatient (AMB) | payer MEDICARE, SELFPAY ==
--- NOTE | 2024-09-28 13:36 | MHC.OFFVISCO ---
Intake Intake Visit Reasons: Anticoagulation Allergies Sulfa (Sulfonamide Antibiotics) [SULFA(SULFONAMIDE ANTIBIOTICS)] Allergy (Unknown, Verified 09/28/24 13:21) RASH codeine Adverse Reaction (Verified 09/28/24 13:21) Vomiting oxycodone Adverse Reaction (Verified 09/28/24 13:21) Gastrointestinal Upset Medication List - Last Reconciled 09/28/24 by Mirna Trejo RN amiodarone 200 mg PO DAILY ascorbate calcium (vitamin C) 500 mg PO DAILY bumetanide 1 mg (1/2 x 2 mg) PO DAILY cholecalciferol (vitamin D3) 10 mcg PO DAILY cyanocobalamin (vitamin B-12) 500 mcg PO DAILY gabapentin 300 mg PO DAILY@0900 PRN multivitamin 1 tab PO DAILY warfarin See Protocol 2.5 mg X5 DAYS/ 5MG X 2 DAYS ( and ) Nursing Note INR 3.4 out of therapeutic range Medications and supplements reviewed Patient status: has been in the middle of a move to a brand new apartment in [place] still has ankel pain had xrays - pt strongly enc to ask for a MRI for better viewing of ligaments and tendons Medications or supplements: no changes Diet: good - may have not had enough greens while moving Denies any signs and symptoms of bleeding or clotting or unusual bruising Bleeding, bruising, clotting discussed Nutritional guidance given: resume weekly greens like spinach or broccoli to lower the INR - eat more greens when having foods that can raise the INR Dose: keep same for now 5mg x 2 days/2.5mg x 5 days F/U INR Date : 2 weeks?? Patient verbalizing understanding of instructions given. Anti-Coag Initial Assessment Social Hx Patient Tobacco Use Status: Never used Tobacco alcohol intake: never Coding Level of Care Code Est Patient Level 1 Diagnoses Current use of anticoagulant therapy Z79.01 Results AMB INR Fingerstick AMB INR Fingerstick 3.4 Last Edit by Mirna Trejo RN on 09/28/24 13:29 manual entry Assessment & Plan Assessment & Plan (1) Current use of anticoagulant therapy: Code(s): Z79.01 - atlassian administrator (current) use of anticoagulants Category: Medical
[2024-09-28 14:17] LABS: Prothrombin Time Whole Bld POC 41.1 sec (11.1-13.5); ~PT, ~INR - Anti Coag Clinic 3.4 (0.9-1.1)
== END 2024-09-28 13:39 | disposition home or self-care (01) ==
LOC: HO.ACS 13:02
PROVIDERS: PCP Internal Medicine; Visit Provider Internal Medicine
DX: Z79.01 Long term (current) use of anticoagulants (principal)

== ENCOUNTER → 2024-09-28 13:02 | Outpatient (BNVA) | payer MEDICARE, SELFPAY | PROVIDERS: PCP Internal Medicine; Visit Provider Internal Medicine | DX: I48.0 Paroxysmal atrial fibrillation (principal); Z79.01 Long term (current) use of anticoagulants; Z51.81 Encounter for therapeutic drug level monitoring | CPT/HCPCS: 85610; 99211 ==

== ENCOUNTER 2024-10-12 11:04 | Outpatient (AMB) | payer MEDICARE, SELFPAY ==
--- NOTE | 2024-10-12 11:20 | MHC.OFFVISCO ---
Intake Intake Visit Reasons: Anticoagulation Allergies Sulfa (Sulfonamide Antibiotics) [SULFA(SULFONAMIDE ANTIBIOTICS)] Allergy (Unknown, Verified 10/12/24 11:16) RASH codeine Adverse Reaction (Verified 10/12/24 11:16) Vomiting oxycodone Adverse Reaction (Verified 10/12/24 11:16) Gastrointestinal Upset Medication List - Last Reconciled 10/12/24 by Falguni Marti RN amiodarone 200 mg PO DAILY ascorbate calcium (vitamin C) 500 mg PO DAILY bumetanide 1 mg (1/2 x 2 mg) PO DAILY cholecalciferol (vitamin D3) 10 mcg PO DAILY cyanocobalamin (vitamin B-12) 500 mcg PO DAILY gabapentin 300 mg PO DAILY@0900 PRN multivitamin 1 tab PO DAILY warfarin See Protocol 2.5 mg X5 DAYS/ 5MG X 2 DAYS ( and ) Nursing Note INR: 2.3 in therapeutic range of 2-3 Medications and supplements reviewed No changes in health, diet, medications, or supplements, Denies any signs and symptoms of bleeding or bruising or clotting. Bleeding, bruising, clotting discussed Nutritional guidance given Dose: 5mg x 2, 2.5mg x 5 F/U INR: 2 weeks Patient verbalizes understanding of instructions given pt in process of moving to [place] Anti-Coag Initial Assessment Social Hx Patient Tobacco Use Status: Never used Tobacco alcohol intake: never Coding Level of Care Code Est Patient Level 1 Diagnoses Current use of anticoagulant therapy Z79.01 Assessment & Plan Assessment & Plan (1) Current use of anticoagulant therapy: Code(s): Z79.01 - medical terminologist (current) use of anticoagulants Category: Medical
[2024-10-12 11:21] LABS: Prothrombin Time Whole Bld POC 27.7 sec (11.1-13.5); ~PT, ~INR - Anti Coag Clinic 2.3 (0.9-1.1)
== END 2024-10-12 11:26 | disposition home or self-care (01) ==
LOC: HO.ACS 11:04
PROVIDERS: PCP Internal Medicine; Visit Provider Internal Medicine
DX: Z79.01 Long term (current) use of anticoagulants (principal)

== ENCOUNTER → 2024-10-12 11:04 | Outpatient (BNVA) | payer MEDICARE, SELFPAY | PROVIDERS: PCP Internal Medicine; Visit Provider Internal Medicine | DX: I48.0 Paroxysmal atrial fibrillation (principal); Z79.01 Long term (current) use of anticoagulants; Z51.81 Encounter for therapeutic drug level monitoring | CPT/HCPCS: 85610; 99211 ==

== ENCOUNTER 2024-10-20 10:05 | Outpatient (REF) | payer MEDICARE, SELFPAY ==
--- NOTE | ~2024-10-20 | MM_ITS ---
EXAMINATION: BONE DENSITOMETRY CLINICAL INDICATION: Age-related osteoporosis without current pathological fracture. COMPARISON: Baseline BD dated 05/23/2021. TECHNIQUE: Using a TableNOW DXA System (software version: 13.1) manufactured by Dr. [employer], dual-energy x-ray absorptiometry was performed of the lumbar spine and left hip. The images are of good technical quality. Summary results are attached. FINDINGS: LEFT FEMUR, NECK: Current: BMD 0.639 g/cm2, Z-score -2.0, T-score -2.9, osteoporosis. Baseline: BMD 0.603 g/cm2. LEFT FEMUR, TOTAL: Current: BMD 0.730 g/cm2, Z-score -1.7, T-score -2.2, osteopenia, 9.2% decrease from baseline (<5% change is not significant). Baseline: BMD 0.804 g/cm2. AP SPINE L1-L4: Current: BMD 0.825 g/cm2, Z-score -2.5, T-score -3.0, osteoporosis, 5.3% decrease from baseline (<5% change is not significant). Baseline: BMD 0.871 g/cm2. IDENTIFIED RISK FACTORS: Early menopause, secondary osteoporosis, osteoporosis, recurrent falls, height loss, bilateral oophorectomy, hysterectomy, kidney disease. HISTORY OF FRACTURE: None listed. MEDICATIONS: Multivitamin. MM/XR DEXA axial skeleton IMPRESSION: 1. DIAGNOSIS: Osteoporosis based on the lowest T-score value of -3.0 in the lumbar spine applying World Health Organization criteria. 2. 10-YEAR FRACTURE RISK PREDICTION, FRAX: According to the guidelines, FRAX calculation should only be performed on patients in the osteopenia bone density category. Therefore, FRAX was not performed on this patient. 3. Treatment Recommendations: NOF guidelines recommend consideration for treatment in postmenopausal women and men age 50 and older presenting with the following: -A hip or vertebral (clinical or morphometric) fracture. -T-score less than or equal to -2.5 at the femoral neck or spine after appropriate evaluation to exclude secondary causes. -Low bone mass at the hip or spine and a 10-year fracture probability by FRAX of greater than or equal to 3% for hip fracture or greater than or equal to 20% for major osteoporotic fracture based on the [place] adapted WHO algorithm. 4. Other Recommendations: All treatment decisions require clinical judgment and consideration of individual patient factors, including patient preferences, comorbidities, previous drug use, risk factors not captured in the FRAX model (e.g. frailty, falls, vitamin D deficiency, increased bone turnover, interval significant decline in bone density) and possible under or overestimation of fracture risk by FRAX. Additional medical evaluation for secondary cause of low bone mineral density may be appropriate. FUTURE SCAN RECOMMENDATION: People with diagnosed cases of osteoporosis or at high risk for fracture should have regular bone mineral density tests. For patients eligible for Medicare, routine testing is allowed once every 2 years. The testing frequency can be increased to one year for patients who have rapidly progressing disease, those who are receiving or discontinuing medical therapy to restore bone mass, or have additional risk factors. Electronically signed by: Juan Livingston MD 10/20/2024 11:55 AM [facility]
== END 2024-10-20 10:06 | disposition home or self-care (01) ==
LOC: HO.MAMMO 10:05
PROVIDERS: PCP Internal Medicine; Visit Provider Internal Medicine
DX: M81.0 Age-related osteoporosis without current pathological fracture (principal)
CPT/HCPCS: 77080

== ENCOUNTER 2024-10-26 11:28 | Outpatient (AMB) | payer MEDICARE, SELFPAY ==
[2024-10-26 11:42] LABS: Prothrombin Time Whole Bld POC 36.4 sec (11.1-13.5)
--- NOTE | 2024-10-26 11:47 | MHC.OFFVISCO ---
Intake Intake Visit Reasons: Anticoagulation Allergies Sulfa (Sulfonamide Antibiotics) [SULFA(SULFONAMIDE ANTIBIOTICS)] Allergy (Unknown, Verified 10/12/24 11:16) RASH codeine Adverse Reaction (Verified 10/12/24 11:16) Vomiting oxycodone Adverse Reaction (Verified 10/12/24 11:16) Gastrointestinal Upset Nursing Note INR: 3.0 in therapeutic range of 2-3 Medications and supplements reviewed No changes in health, diet, medications, or supplements, Denies any signs and symptoms of bleeding or bruising or clotting. Bleeding, bruising, clotting discussed Nutritional guidance given to have a serving of greens today Dose: 2.5mg X 5 days and 5mg X 2 days F/U INR: 3 weeks Patient verbalizes understanding of instructions given Anti-Coag Initial Assessment Social Hx Patient Tobacco Use Status: Never used Tobacco alcohol intake: never Coding Level of Care Code Est Patient Level 1 Diagnoses Current use of anticoagulant therapy Z79.01 Results AMB INR Fingerstick AMB INR Fingerstick 3.0 Last Edit by Theresa Philip RN on 10/26/24 11:35 interface delay Assessment & Plan Assessment & Plan (1) Current use of anticoagulant therapy: Code(s): Z79.01 - long term acute care registered nurse (current) use of anticoagulants Category: Medical
--- OUTSIDE RECORDS SUMMARY | 2024-11-02 13:26 | XMS_ITS | Continuity of Care Document ---
Author Organization [facility] Address [address] [place] [address] Phone Care Team Providers Care Purler Name Role Phone Miguel ALBERTS, RVT, RPVI, [...] Providers Copied on Encounter [facility] [place], [address] [place] [address] Dr Stack [address], [place], [id number], [place] tel:[phone] CVR - [place] - Advance No Information 4 Miguel ALBERTS RVT, MARY Montez. [address] [place] [address], [place], [id number], [place]. tel:[phone] [facility] [place], [address] [place] [address] Dr Stack 1000[address] 1000Dottie [place], [id number], [place] tel:[phone] CVR - [place] - Advance Varicose veins of left lower extremity with other complication s 4 Anjelica Reeder. [address] [place] [address], [facility] [place], [id number], [place]. tel:[phone] Referring Provider: Korina FAJARDO, [address] [place] [address], [address]. tel:[phone] [facility], [address] [place] [address] Dr Stack [address], [place], [id number], [place] tel:[phone] CVR - [place] - Advance Encounter for follow-up examination after completed treatment for conditions other than malignant nePain in left leg 4 Miguel ALBERTS RVT, MARY Montez. [address] [place] [address], [place], [id number], [place]. tel:[phone] Referring Provider: Korina FAJARDO, [place], [address]. tel:[phone] [facility], [address] [place] [address] Dr Stack 1000Suite 1000Dottie [place], [id number], [place] tel:[phone] CVR - [place] - Advance Varicose veins of left lower extremity with other complication s 4 Miguel ALBERTS RVT, MARY Montez. [address] [place] [address], [place], [place], [id number], [place]. tel:[phone] Referring Provider: Korina FAJARDO, [address] [place] [address], [facility]. tel:[phone] Office/Outpt E&M Established 15 Mins- CT & [place] [facility], [address] [place] [address] Dr Stack 1000Suite Dottie Greer [place], [id number], [place] tel:[phone] CVR - [place] - Advance Pruritus, unspecifiedV aricose veins of left lower extremity with other complication sLocalized edemaCramp and spasmRestles s legs syndrome 4 Miguel ALBERTS RVT, MARY Montez. [address] [place] [address], [facility] lu[place]IAN, [place], [id number], [place]. tel:[phone] Referring Provider: Korina FAJARDO, [address] [place] [address], [facility]. tel:[phone] [facility], [address] [place] [address] Dr Stack 1000SuDottie hodge MD, [id number], [place] tel:[phone] CVR - [place] - Advance Encounter for follow-up examination after completed treatment for conditions other than malignant neChronic venous hypertension (idiopathic) with other complication s of bilateral lower extremity 4 Miguel ALBERTS RVT, MARY Montez. [address] [place] [address], [facility], [id number], [place]. tel:[phone] Referring Provider: Korina FAJARDO, [address] [place] [address], [facility]. tel:[phone] [facility], [address] [place] [address] Dr Stack 1000Suite 1000Dottie MD, [id number], [place] tel:[phone] CVR [facility] Encounter for follow-up examination after completed treatment for conditions other than malignant neoplasmVari cose veins of left lower extremity with pain 4 Elizabeth Beth. [address], [address], [place], [place], [id number], [place]. tel:[phone] Referring Provider: Korina FAJARDO, [address] [place] [address], [address]. tel:[phone] [facility], [address] [place] [address] [facility] 1000Suite [facility] [place], [id number], [place] tel:[phone] CVR [facility] Varicose veins of left lower extremity with other complication s 4 Miguel ALBERTS RVT, MARY Montez. [address] [place] [address], Den [place], [id number], [place]. tel:[phone] Referring Provider: Korina FAJARDO, [address] [place] [address], [address]. tel:[phone] [facility], [address] [place] [address] [facility] 1000Suite Dottie Greer [place], [id number], [place] tel:[phone] [facility] No Information 4 Miguel ALBERTS RVT, MARY Montez. [address] [place] [address], Den [place], [id number], [place]. tel:[phone] [facility], [address] [place] [address] Dr Stack 1000Suite 1000Dottie MD, [id number], [place] tel:[phone] CVR - [facility] Encounter for follow-up examination after completed treatment for conditions other than malignant neoplasmChro savi venous hypertension (idiopathic) with other complication s of right lower extremity 4 Miguel ALBERTS RVT, MARY Montez. [address] [place] [address], [place], [id number], [place]. tel:[phone] Referring Provider: Korina FAJARDO, [address] [place] [address], [facility]. tel:[phone] [facility] [place], [address] [place] [address] Dr Stack 1000SuDottie hodge MD, [id number], [place] tel:[phone] CVR - [facility] Varicose veins of right lower extremity with other complication s 4 Miguel ALBERTS RVT, MARY Montez. [address] [place] [address], [facility], [place], [id number], [place]. tel:[phone] Referring Provider: Korina FAJARDO, [address] [place] [address], [facility]. tel:[phone] [facility] [place], [address] [place] [address] Dr Stack 1000Dottie hodge MD, [id number], [place] tel:[phone] CVR [facility] Encounter for follow-up examination after completed treatment for conditions other than malignant neVaricose veins of right lower extremity with pain 4 Miguel ALBERTS RVT, RPVI Robert. [address] [place] [address], [facility], [place], [id number], [place]. tel:[phone] Referring Provider: Korina FAJARDO, [address] [place] [address], [facility]. tel:[phone] [facility], [address] [place] [address] Dr Stack 1000SuDottie hodge MD, [id number], [place] tel:[phone] CVR - [facility] No Information 4 Miguel ALBERTS RVT, MARY Montez. [address] [place] [address], [facility] [place], [place], [id number], [place]. tel:[phone] [facility], [address] [place] [address] Dr Stack 1000SuDottie hodge MD, [id number], [place] tel:[phone] CVR - [facility] Chronic venous hypertension (idiopathic) with inflammation of right lower extremity 4 Miguel ALBERTS RVT, MARY Montez. [address] [place] [address], [place], [place], [id number], . tel:[phone] Referring Provider: Korina FAJARDO, [address] [place] [address], [address]. tel:[phone] Offic/outpt E&m Estab 5 Min Trial- Telemedicine CT & [place] [facility], [address] [place] [address] Dr Stack 1000Suite Dottie Greer [place], [id number], [place] tel:[phone] CVR - [place] - Advance Localized edemaCramp and spasmRestles s legs syndromeVeno us insufficienc y (chronic) (peripheral) Pruritus, unspecified Feb- 4 Dayo Camarillo. [address] [place] [address], [place], [place], [id number], [place]. tel:[phone] Referring Provider: Korina FAJARDO, [address] [place] [address], [address]. tel:[phone] Office/Oupt E&M New Pt 45 Mins [facility], [address] [place] [address] Dr Stack 1000Suite Dottie Greer [place], [id number], [place] tel:[phone] CVR - [place] - Advance Varicose veins of bilateral lower extremities with other complication Jarrod in right lower legPain in left lower legPain in right legRestless legs syndromePrur itus, unspecifiedP ain in left legCramp and spasmLocaliz ed edema 4 Miguel ALBERTS, RVT, MARY Montez. [address] [place] [address], [place], [place], [id number], [place]. tel:[phone] Referring Provider: LIS PHILLIPS MD MPH R, [address], [place], [address]. tel:[phone] [facility], [address] [place] [address] Dr Stack 1000SuDottie hodge MD, [id number], [place] tel:[phone] CVR - [facility] Chronic venous hypertension (idiopathic) with other complication s of bilateral lower extremity 4 Miguel ALBERTS, RVT, MARY Montez. [address], [address], [place] lupe [place], [id number], [place]. tel:[phone] Referring Provider: Korina JIANGP, [address] [place], [address]. tel:[phone] Family History Family Member Type Diagnosis Age At Onset No Information Payers Payer name Insurance type Covered green party ID manuela gerardobobbi(s) [facility] [id number] Social History Type Description Quantity Date Captured [...]
== END 2024-10-26 11:48 | disposition home or self-care (01) ==
LOC: HO.ACS 11:28
PROVIDERS: PCP Internal Medicine; Visit Provider Internal Medicine
DX: Z79.01 Long term (current) use of anticoagulants (principal)

== ENCOUNTER → 2024-10-26 11:28 | Outpatient (BNVA) | payer MEDICARE, SELFPAY | PROVIDERS: PCP Internal Medicine; Visit Provider Internal Medicine | DX: I48.0 Paroxysmal atrial fibrillation (principal); Z79.01 Long term (current) use of anticoagulants; Z51.81 Encounter for therapeutic drug level monitoring | CPT/HCPCS: 85610; 99211 ==

== ENCOUNTER 2024-11-01 09:34 | Outpatient (REF) | payer MEDICARE, SELFPAY ==
[2024-11-01 13:38] LABS: Estimated Average Glucose 126 mg/dL; Hemoglobin A1C 153.4995 umol/L
[2024-11-01 13:51] LABS: Alanine Aminotransferase 14 U/L (0-31); Anion Gap 8 (12-20); Aspartate Amino Transferase 24 U/L (5-31); Blood Urea Nitrogen 15 mg/dL (9-16); Carbon Dioxide 29 mmol/L (22-29); Chloride 106 mmol/L (96-108); Cholesterol 193 mg/dL (<200); Estimated Glomerular Filt Rate > 60; Glucose Fasting 102 mg/dL (60-99); HDL Cholesterol 40 mg/dL (>40); LDL Cholesterol Calculated 124 mg/dL (<100); Potassium 4.1 mmol/L (3.3-5.1); Sodium 139 mmol/L (135-145); Triglycerides 149 mg/dL (<150)
[2024-11-01 14:13] LABS: Vitamin D 25-OH Total 76.2 ng/mL (>30)
[2024-11-01 14:20] LABS: Folate 12.1 ng/mL (> or = 4.0); Vitamin B12 1485 pg/mL (200-900)
--- OUTSIDE RECORDS SUMMARY | 2024-11-03 14:01 | XMS_ITS | Continuity of Care Document ---
Author Organization [facility] Address [address] [place] [address] Phone Care Team Providers Care Avionics Systems Technician Name Role Phone Miguel ALBERTS, RVT, RPVI, [...] Providers Copied on Encounter [facility] [place], [address] [place] [address] Dr Stack 1000[address] 1000, [place], [id number], [place] tel:[phone] CVR - [place] - [place] No Information 4 Miguel ALBERTS RVT, MARY Montez. [address] [place] [address], [employer] [place], [id number], [place]. tel:[phone] [facility] MD [place], [address] [place] [address] Dr Stack 1000Suite 1000Dottie [place], [id number], [place] tel:[phone] CVR - [place] - [place] Varicose veins of left lower extremity with other complication s 4 Anjelica Reeder. [address] [place] [address], [facility] [place], [id number], [place]. tel:[phone] Referring Provider: Korina FAJARDO, [address] [place] [address], [address]. tel:[phone] [place] [facility], [address] [place] [address] Dr Stack 1000[address] 1000, [place], [id number], [place] tel:[phone] CVR - [place] - [place] Encounter for follow-up examination after completed treatment for conditions other than malignant nePain in left leg 4 Miguel ALBERTS RVT, MARY Montez. [address] [place] [address], [place], [id number], [place]. tel:[phone] Referring Provider: Korina FAJARDO, [facility] [place], [address]. tel:[phone] [facility], [address] [place] [address] Dr Stack 1000Suite 1000Dottie [place], [id number], [place] tel:[phone] CVR - [place] - [place] Varicose veins of left lower extremity with other complication s 4 Miguel ALBERTS RVT, MARY Montez. [address] [place] [address], [place], [place], [id number], [place]. tel:[phone] Referring Provider: Korina FAJARDO, [address] [place] [address], [facility]. tel:[phone] Office/Outpt E&M Established 15 Mins- CT & [place] [facility], [address] [place] [address] Dr Stack 1000Suite Dottie Greer [place], [id number], [place] tel:[phone] CVR - [place] - [place] Pruritus, unspecifiedV aricose veins of left lower extremity with other complication sLocalized edemaCramp and spasmRestles s legs syndrome 4 Miguel ALBERTS RVT, MARY Montez. [address] [place] [address], [facility] [place], [place], [id number], [place]. tel:[phone] Referring Provider: Korina FAJARDO, [address] [place] [address], [facility]. tel:[phone] [facility], [address] [place] [address] Dr Stack 1000SuDottie hodge MD, [id number], [place] tel:[phone] CVR - [place] - [place] Encounter for follow-up examination after completed treatment for conditions other than malignant neChronic venous hypertension (idiopathic) with other complication s of bilateral lower extremity 4 Miguel ALBERTS RVT, MARY Montez. [address] [place] [address], [facility] [place], [id number], [place]. tel:[phone] Referring Provider: Korina FAJARDO, [address] [place] [address], [facility]. tel:[phone] [facility], [address] [place] [address] Dr Stack 1000Suite 1000Dottie MD, [id number], [place] tel:[phone] CVR [facility] Encounter for follow-up examination after completed treatment for conditions other than malignant neoplasmVari cose veins of left lower extremity with pain 4 Elizabeth Beth. [address], [address], [place], [place], [id number], [place]. tel:[phone] Referring Provider: Korina FAJARDO, [address] [place] [address], [address]. tel:[phone] [facility], [address] [place] [address] [facility] 1000Suite [facility] [place], [id number], [place] tel:[phone] CVR [facility] Varicose veins of left lower extremity with other complication s 4 Miguel ALBERTS RVT, MARY Montez. [address] [place] [address], [place], [id number], [place]. tel:[phone] Referring Provider: Korina FAJARDO, [address] [place] [address], [address]. tel:[phone] [place] [facility], [address] [place] [address] [facility] 1000Suite Dottie Greer MD, [id number], [place] tel:[phone] [facility] No Information 4 Miguel ALBERTS RVT, MARY Montez. [address] [place] [address], Den and[place], [id number], [place]. tel:[phone] [facility], [address] [place] [address] Dr Stack 1000Suite 1000Dottie MD, [id number], [place] tel:[phone] CVR - [facility] Encounter for follow-up examination after completed treatment for conditions other than malignant neoplasmChro savi venous hypertension (idiopathic) with other complication s of right lower extremity 4 Miguel ALBERTS RVT, MARY Montez. [address] [place] [address], [place], [id number], [place]. tel:[phone] Referring Provider: Korina FAJARDO, [address] [place] [address], [facility]. tel:[phone] [facility] MD [place], [address] [place] [address] Dr Stack 1000SuDottie hodge MD, [id number], [place] tel:[phone] CVR - [facility] Varicose veins of right lower extremity with other complication s 4 Miguel ALBERTS RVT, MARY Montez. [address] [place] [address], [facility], [place], [id number], [place]. tel:[phone] Referring Provider: Korina FAJARDO, [address] [place] [address], [facility]. tel:[phone] [facility] MD [place], [address] [place] [address] Dr Stack 1000Dottie hodge MD, [id number], [place] tel:[phone] CVR [facility] Encounter for follow-up examination after completed treatment for conditions other than malignant neVaricose veins of right lower extremity with pain 4 Miguel ALBERTS RVT, RPVI Robert. [address] [place] [address], [facility], [place], [id number], [place]. tel:[phone] Referring Provider: Korina FAJARDO, [address] [place] [address], [facility]. tel:[phone] [facility], [address] [place] [address] Dr Stack 1000SuDottie hodge MD, [id number], [place] tel:[phone] CVR - [facility] No Information 4 Miguel ALBERTS RVT, MARY Montez. [address] [place] [address], [facility] [place], [place], [id number], [place]. tel:[phone] [facility], [address] [place] [address] Dr Stack 1000SuDottei hodge MD, [id number], [place] tel:[phone] CVR - [facility] Chronic venous hypertension (idiopathic) with inflammation of right lower extremity 4 Miguel ALBERTS RVT, MARY Montez. [address] [place] [address], [place], [place], [id number], . tel:[phone] Referring Provider: Korina FAJARDO, [address] [place] [address], [address]. tel:[phone] Offic/outpt E&m Estab 5 Min Trial- Telemedicine CT & [place] [facility], [address] [place] [address] Dr Stack 1000Suite Dottie Greer MD, [id number], [place] tel:[phone] CVR - [place] - [place] Localized edemaCramp and spasmRestles s legs syndromeVeno us insufficienc y (chronic) (peripheral) Pruritus, unspecified Feb- 4 Dayo Camarillo. [address] [place] [address], [place], [place], [id number], [place]. tel:[phone] Referring Provider: Korina FAJARDO, [address] [place] [address], [address]. tel:[phone] Office/Oupt E&M New Pt 45 Mins [facility], [address] [place] [address] Dr Stack 1000Suite Dottie Greer MD, [id number], [place] tel:[phone] CVR - [place] - [place] Varicose veins of bilateral lower extremities with other complication Jarrod in right lower legPain in left lower legPain in right legRestless legs syndromePrur itus, unspecifiedP ain in left legCramp and spasmLocaliz ed edema 4 Miguel ALBERTS, RVT, MARY Montez. [address] [place] [address], [place], [place], [id number], [place]. tel:[phone] Referring Provider: LIS PHILLIPS MD MPH R, [address] [facility] [facility] [address], [place], [address]. tel:[phone] [facility], [address] [place] [address] Dr Stack 1000SuDottie hodge MD, [id number], [place] tel:[phone] CVR - [facility] Chronic venous hypertension (idiopathic) with other complication s of bilateral lower extremity 4 Miguel ALBERTS, RVT, MARY Montez. [address], [address], [place], [id number], [place]. tel:[phone] Referring Provider: Korina JIANGP, [address] [place], [address]. tel:[phone] Family History Family Member Type Diagnosis Age At Onset No Information Payers Payer name Insurance type Covered libertarian ID Anny ramirez(s) [facility] [id number] Social History Type Description Quantity Date Captured [...]
== END 2024-11-01 09:35 | disposition home or self-care (01) ==
LOC: HO.HMGCLDS 09:34
PROVIDERS: PCP Internal Medicine; Visit Provider Internal Medicine
DX: M81.0 Age-related osteoporosis without current pathological fracture (principal)
CPT/HCPCS: 36415; 80048; 80061; 82306; 82607; 82746; 83036; 84450; 84460

== ENCOUNTER 2024-11-15 13:31 | Outpatient (AMB) | payer MEDICARE, SELFPAY ==
[2024-11-15 13:37] LABS: ~PT, ~INR - Anti Coag Clinic 4.2 (0.9-1.1)
--- NOTE | 2024-11-15 13:48 | MHC.OFFVISCO ---
Intake Intake Visit Reasons: Anticoagulation Allergies Sulfa (Sulfonamide Antibiotics) [SULFA(SULFONAMIDE ANTIBIOTICS)] Allergy (Unknown, Verified 11/15/24 13:32) RASH codeine Adverse Reaction (Verified 11/15/24 13:32) Vomiting oxycodone Adverse Reaction (Verified 11/15/24 13:32) Gastrointestinal Upset Medication List - Last Reconciled 11/15/24 by Theresa Philip, SCARLET amiodarone 200 mg PO DAILY ascorbate calcium (vitamin C) 500 mg PO DAILY bumetanide 1 mg (1/2 x 2 mg) PO DAILY cholecalciferol (vitamin D3) 10 mcg PO DAILY cyanocobalamin (vitamin B-12) 500 mcg PO DAILY gabapentin 300 mg PO DAILY@0900 multivitamin 1 tab PO DAILY warfarin See Protocol 2.5 mg X5 DAYS/ 5MG X 2 DAYS ( and ) Nursing Note INR: 4.2?out of therapeutic range of 2-3 Medications and supplements reviewed Patient status: well Medications or supplements: no changes Diet: pt states she has been very busy and has not had her usual greens Denies any signs and symptoms of bleeding or clotting or unusual bruising Bleeding, bruising, clotting discussed Nutritional guidance given: to have a serving of greens today Dose: pt already took today's dose of 2.5mg. Will hold the next 2 days of 2.5mg each then will resume 2.5mg X 5 days and 5mg X 2 days (Fri & ) F/U INR Date : 1 week?? Patient verbalizing understanding of instructions given. Anti-Coag Initial Assessment Social Hx Patient Tobacco Use Status: Never used Tobacco alcohol intake: never Coding Level of Care Code Est Patient Level 1 Diagnoses Current use of anticoagulant therapy Z79.01 Assessment & Plan Assessment & Plan (1) Current use of anticoagulant therapy: Code(s): Z79.01 - retirement (current) use of anticoagulants Category: Medical
== END 2024-11-15 13:55 | disposition home or self-care (01) ==
LOC: HO.ACS 13:31
PROVIDERS: PCP Internal Medicine; Visit Provider Internal Medicine
DX: Z79.01 Long term (current) use of anticoagulants (principal)

== ENCOUNTER → 2024-11-15 13:31 | Outpatient (BNVA) | payer MEDICARE, SELFPAY | PROVIDERS: PCP Internal Medicine; Visit Provider Internal Medicine | DX: I48.0 Paroxysmal atrial fibrillation (principal); Z79.01 Long term (current) use of anticoagulants; Z51.81 Encounter for therapeutic drug level monitoring | CPT/HCPCS: 85610; 99211 ==

== ENCOUNTER 2024-11-23 11:22 | Outpatient (AMB) | payer MEDICARE, SELFPAY ==
[2024-11-23 11:39] LABS: ~PT, ~INR - Anti Coag Clinic 2.4 (0.9-1.1)
--- NOTE | 2024-11-23 11:58 | MHC.OFFVISCO ---
Intake Intake Visit Reasons: Anticoagulation Allergies Sulfa (Sulfonamide Antibiotics) [SULFA(SULFONAMIDE ANTIBIOTICS)] Allergy (Unknown, Verified 11/23/24 11:34) RASH codeine Adverse Reaction (Verified 11/23/24 11:34) Vomiting oxycodone Adverse Reaction (Verified 11/23/24 11:34) Gastrointestinal Upset Medication List - Last Reconciled 11/23/24 by Rachael Dunlap RN amiodarone 200 mg PO DAILY ascorbate calcium (vitamin C) 500 mg PO DAILY bumetanide 1 mg (1/2 x 2 mg) PO DAILY cholecalciferol (vitamin D3) 10 mcg PO DAILY cyanocobalamin (vitamin B-12) 500 mcg PO DAILY gabapentin 300 mg PO DAILY@0900 multivitamin 1 tab PO DAILY warfarin See Protocol 2.5 mg X5 DAYS/ 5MG X 2 DAYS ( and ) Nursing Note NO CP,SOB,DIET/MED CHANGES,FALLS OR SX O BLEEDING. CONTINUE PRESENT DOSE AND FOLLOW-UP IN 3 WEEKS. GOOD UNDERSTANDING OF DOSING INSTR. Anti-Coag Initial Assessment Social Hx Patient Tobacco Use Status: Never used Tobacco alcohol intake: never Coding Level of Care Code Est Patient Level 1 Diagnoses Current use of anticoagulant therapy Z79.01 Assessment & Plan Assessment & Plan (1) Current use of anticoagulant therapy: Code(s): Z79.01 - [facility] (current) use of anticoagulants Category: Medical
== END 2024-11-23 12:00 | disposition home or self-care (01) ==
LOC: HO.ACS 11:22
PROVIDERS: PCP Internal Medicine; Visit Provider Internal Medicine
DX: Z79.01 Long term (current) use of anticoagulants (principal)

== ENCOUNTER → 2024-11-23 11:22 | Outpatient (BNVA) | payer MEDICARE, SELFPAY | PROVIDERS: PCP Internal Medicine; Visit Provider Internal Medicine | DX: I48.0 Paroxysmal atrial fibrillation (principal); Z79.01 Long term (current) use of anticoagulants; Z51.81 Encounter for therapeutic drug level monitoring | CPT/HCPCS: 85610; 99211 ==

== ENCOUNTER 2024-12-10 08:52 | Outpatient (REF) | payer MEDICARE, SELFPAY ==
--- NOTE | ~2024-12-10 | XR_ITS ---
EXAMINATION: XR KNEE 4 OR MORE VIEWS LEFT HISTORY: M25.562 - Pain in left knee COMPARISON: Comparison is made with the prior examination dated 07/16/2024. FINDINGS: Four views of the left knee are submitted. Osseous mineralization is normal. There is no fracture or dislocation. There is moderate osteoarthritis of the lateral compartment and mild osteoarthritis of the medial and patellofemoral compartments, with joint space narrowing and osteophyte formation. The soft tissues are unremarkable. XR/XR knee LT 4V IMPRESSION: Osteoarthritis of the left knee as described. Electronically signed by: Tc Balderrama MD 12/22/2024 03:06 PM MATIAS
== END 2024-12-10 08:53 | disposition home or self-care (01) ==
LOC: HO.HMGCX 08:52
PROVIDERS: PCP Internal Medicine; Visit Provider Internal Medicine
DX: M81.0 Age-related osteoporosis without current pathological fracture (principal); G89.29 Other chronic pain; M25.562 Pain in left knee; R26.2 Difficulty in walking, not elsewhere classified; R79.89 Other specified abnormal findings of blood chemistry; G25.81 Restless legs syndrome
CPT/HCPCS: 73564; 96127

== ENCOUNTER 2024-12-10 08:52 | Outpatient (AMB) | payer MEDICARE, SELFPAY ==
--- NOTE | 2024-12-10 08:49 | MHC.PC.OV ---
Intake Visit Reasons: follow up/test results Intake Note: Pt is having a telehealth visit to discuss recent lab results Allergies Sulfa (Sulfonamide Antibiotics) [SULFA(SULFONAMIDE ANTIBIOTICS)] Allergy (Unknown, Verified 12/10/24 09:03) RASH codeine Adverse Reaction (Verified 12/10/24 09:03) Vomiting oxycodone Adverse Reaction (Verified 12/10/24 09:03) Gastrointestinal Upset Medication List - Last Reconciled 12/10/24 by Annalee De La Torre MD amiodarone 200 mg PO DAILY ascorbate calcium (vitamin C) 500 mg PO DAILY bumetanide 1 mg (1/2 x 2 mg) PO DAILY cholecalciferol (vitamin D3) 10 mcg PO DAILY cyanocobalamin (vitamin B-12) 500 mcg PO DAILY gabapentin 300 mg PO DAILY@0900 multivitamin 1 tab PO DAILY warfarin See Protocol 2.5 mg X5 DAYS/ 5MG X 2 DAYS ( and ) Tobacco use date assessed: 12/10/24 Fall risk assessment: 1 Fall in past year Last assessed Fall Risk: 12/10/24 Dental Screening Dental Screen Date: 12/10/24 Did you have a dental visit in the last 12 months?: No Did you have a dental problem in the last 6 months where you did not have access to dental care?: No Was dental information given to patient?: No HPI follow up/test results HPI Details 61-year-old lady here today for follow-up on results of bone density scan. It showed presence of osteoporosis in left femoral neck and lumbar spine. Recent fasting labs also showed fasting glucose in the prediabetic range but hemoglobin A1c is at 6%, fasting lipids are within normal limits as well as vitamin-D level. Complains of pain in her left knee mainly in the posterior aspect, causing difficulty walking. This has been present now for the last several weeks. Has been taking Tylenol which affords not much improvement. Needs refill on her gabapentin for which he takes for restless leg syndrome, has been helping [facility] Medical History (Updated 12/10/24 @ 09:32 by Annalee De La Torre MD) History of kidney stones Dyslipidemia Osteoporosis Impaired fasting glucose Vaccine refused by patient Elevated brain natriuretic peptide (BNP) level Anemia Morbid obesity Iliotibial band syndrome Lumbosacral radiculopathy due to osteoarthritis of spine History of deep vein thrombophlebitis of lower extremity Positive ALVIN (antinuclear antibody) CKD (chronic kidney disease) stage 3, GFR 30-59 ml/min Osteoarthritis of right ankle and foot Postmenopausal Venous insufficiency of both lower extremities Diverticulitis Peripheral vascular complication of surgical procedure Peripheral vascular disease Hyperlipidemia DVT (deep venous thrombosis) Diastolic heart failure Paroxysmal A-fib BERE (obstructive sleep apnea) Surgical History History of lithotripsy History of cardiac cath Hx of vascular surgery H/O hysterectomy for benign disease Family History Father Emphysema, unspecified Mother No problems noted. Brother Atrial fibrillation Sister Atrial fibrillation Sister Breast cancer Social History Household Members: None Housing: House Do you presently have visiting nurse or other home services: No Alcohol intake: never Patient Tobacco Use Status: Never used Tobacco e-Cigarette/Vaping Use: Never Used service: No Current occupational status: retired and disabled Current occupation: rt handed Cognitive needs: No Hearing needs: No Vision needs: Yes Questionnaire PHQ-9 Over the last 2 weeks, how often have you been bothered by any of the following problems? 1. Little interest or pleasure in doing things: not at all 2. Feeling down, depressed, or hopeless: not at all 3. Trouble falling or staying asleep, or sleeping too much: not at all 4. Feeling tired or having little energy: not at all 5. Poor appetite or overeating: not at all 6. Feeling bad about yourself - or that you are a failure or have let yourself or your family down: not at all 7. Trouble concentrating on things, such as reading the newspaper or watching television: not at all 8. Moving or speaking so slowly that other people could have noticed. Or the opposite - being so fidgety or restless that you have been moving around a lot more than usual: not at all 9. Thoughts that you would be better off or of hurting yourself in some way: not at all Total score: 0 Depression Screening Interpretation: Negative Depression Screening Done: Yes 60066 - PHQ-9 Billing: Yes Source: Developed by Drs. Tc Noonan, Janet Hinojosa, Isael Andrews and colleagues, with an educational tha from [employer]. Thrive Questionnaire Date Thrive assessed: 12/10/24 I am a: Patient What is your living situation today?: I have a steady place to live Within the past 12 months, did the food you bought not last and you didn't have the money to get more?: Never true Within the past 12 months, did you worry whether your food would run out before you got money to buy more?: Never true Do you have trouble paying for medicines?: No Do you have trouble getting transportation to medical appointments?: No Do you have trouble paying your heating and electricity bill?: No Do you have trouble taking care of your child, family member or friend?: No Do you have trouble with day-to-day activities such as bathing, preparing meals, shopping, managing finances, etc.?: No Are you currently unemployed and looking for a job?: No Are you interested in more education?: No THRIVE Score: 0 AUDIT C Alcohol Use Questionnaire (AUDIT-C) 1. How often do you have a drink containing alcohol?: Never Total Score: 0 KELLEY-7 AMB Questionnaire KELLEY-7 Date KELLEY - 7 assessed: 11/29/22 Source: Developed by Drs. Tc Noonan, Janet Hinojosa, Isael Andrews and colleagues, with an educational tha from [employer]. Review of Systems Const All systems reviewed & are unremarkable except as noted in HPI and below Physical exam (Primary Care) Tobacco/Smoking Status: Tobacco use Status Tobacco use date assessed 12/10/24 12/10/24 08:51 Patient Tobacco Use Status Never used Tobacco 12/10/24 08:51 e-Cigarette/Vaping Use Never Used 12/10/24 08:51 PHQ-9: PHQ-9 Score PHQ-9: Total score 0 12/10/24 09:00 Depression Screening Interpretation: Negative Thrive Assessment: Date of Thrive Assessment Date Thrive assessed 12/10/24 12/10/24 08:51 Telehealth Telehealth Telehealth Platform: [facility] Location of provider rendering services: practice address Location of patient: address on file Patient Identification confirmed using: Name, : Yes Telehealth method: video Patient verbally consented to treatment: Yes Patient verbally consented to billing insurance company: Yes Patient informed of any privacy concerns related to visit: Yes Minutes spent on Phone/Video with Pt.: 25 Results Reviewed Results Reviewed: sol: Davida Downey Age/Sex: 69/F : 1955 Unit#: [id number] Attend Dr: Annalee De La Torre MD Re11/01/24 Status: DEP REF Location: [facility] Disch: SPEC : [id number] GODWIN: 11/01/24 STATUS: COMP REQ : [id number] RECD: 11/01/[address]: Annalee De La Torre MD COMP: 11/01/24 ENTERED: 11/01/[address] [facility] DR: ORDERED: Met Prof Fast, AST, ALT, Lipid Panel, Vitamin D 25-OH Test Result Flag Reference Sodium 139 135-145 mmol/L Potassium 4.1 3.3-5.1 mmol/L CL 106 96-108 mmol/L CO2 29 22-29 mmol/L Gap 8 L 12-20 BUN 15 9-16 mg/dL Creat 0.80 0.5-1.4 mg/dL eGFR > 60 Chronic Kidney Disease: Estimated GFR < 60 mL/min/1.73m2 Severe Kidney Disease: Estimated GFR < 15 mL/min/1.73m2 FBS 102 H 60-99 mg/dL A fasting glucose from 100-125 mg/dl is considered impaired (pre-diabetes). CA 9.0 8.4-10.2 mg/dL AST (GOT) 24 5-31 U/L ALT (GPT) 14 0-31 U/L Triglyceride 149 <150 mg/dL Desirable Triglyceride: less than 150 mg/dL Borderline High Triglyceride 150-199 mg/dL High Triglyceride: 200-499 mg/dL Very High Triglyceride: greater than or equal to 5OO mg/dL Cholesterol 193 <200 mg/dL Desirable Cholesterol: less than 200 mg/dL Borderline High Cholesterol: 200-239 mg/dL High Cholesterol: greater than 239 mg/dL LDL Calculated 124 H <100 mg/dL Desirable LDL: less than 100 mg/dL Near Optimal/Above Optimal LDL: 110-129 mg/dL Borderline High LDL: 130-159 mg/dL High LDL: 160-189 mg/dL Very High LDL: greater than or equal to 190 mg/dL HDL 40 L >40 mg/dL Desirable HDL: greater than 40 mg/dL Note: This HDL assay may give artificially low results in patients with liver disease. Vit D 25-OH Tot 76.2 >30 ng/mL Health Based Reference Values* < 20 ng/mL Deficient 20-30 ng/mL Insufficient > 30 ng/mL Sufficient Date of Service: 10/20/24 Follow Up: Procedure(s): XR DEXA axial skeleton Accession Number(s): [id number] cc: Annalee De La Torre MD~ EXAMINATION: BONE DENSITOMETRY CLINICAL INDICATION: Age-related osteoporosis without current pathological fracture. COMPARISON: Baseline BD dated 05/23/2021. TECHNIQUE: Using a [employer]Fire DXA System (software version: 13.1) manufactured by [employer], dual-energy x-ray absorptiometry was performed of the lumbar spine and left hip. The images are of good technical quality. Summary results are attached. FINDINGS: LEFT FEMUR, NECK: Current: BMD 0.639 g/cm2, Z-score -2.0, T-score -2.9, osteoporosis. Baseline: BMD 0.603 g/cm2. LEFT FEMUR, TOTAL: Current: BMD 0.730 g/cm2, Z-score -1.7, T-score -2.2, osteopenia, 9.2% decrease from baseline (<5% change is not significant). Baseline: BMD 0.804 g/cm2. AP SPINE L1-L4: Current: BMD 0.825 g/cm2, Z-score -2.5, T-score -3.0, osteoporosis, 5.3% decrease from baseline (<5% change is not significant). Baseline: BMD 0.871 g/cm2. IDENTIFIED RISK FACTORS: Early menopause, secondary osteoporosis, osteoporosis, recurrent falls, height loss, bilateral oophorectomy, hysterectomy, kidney disease. HISTORY OF FRACTURE: None listed. MEDICATIONS: Multivitamin. Laboratory Tests 11/01/24 09:47 Estimat Average Glucose 126 Hemoglobin A1c % 6.0 Laboratory Tests 11/01/24 09:47 Estimat Average Glucose 126 Hemoglobin A1c % 6.0 Vitamin B12 1485 H Folate 12.1 Coding Level of Care Code Tele Est Pt Level 4 (78807) Diagnoses Age-related osteoporosis without current pathological fracture M81.0 Osteoporosis type: age-related Presence of current pathological fracture: without current pathological fracture Chronic pain of left knee M25.562; G89.29 Chronicity: chronic Difficulty walking R26.2 Elevated vitamin B12 level R79.89 Restless legs syndrome G25.81 Additional Codes PHQ-9 - 27788 - PHQ-9 Billing: Yes ([id number]) Assessment & Plan Assessment & Plan (1) Osteoporosis: Code(s): M81.0 - Age-related osteoporosis without current pathological fracture Category: Medical Qualifiers: Osteoporosis type: age-related Presence of current pathological fracture: without current pathological fracture Qualified Code(s): M81.0 - Age-related osteoporosis without current pathological fracture (2) Left knee pain: Code(s): M25.562 - Pain in left knee Category: Medical Qualifiers: Chronicity: chronic Qualified Code(s): M25.562 - Pain in left knee; G89.29 - Other chronic pain (3) Difficulty walking: Code(s): R26.2 - Difficulty in walking, not elsewhere classified Category: Medical (4) Elevated vitamin B12 level: Code(s): R79.89 - Other specified abnormal findings of blood chemistry Category: Medical (5) Restless legs syndrome: Code(s): G25.81 - Restless legs syndrome Category: Medical Plan I have referred the patient to an shared services manager for osteoporosis management, exploring possible treatment options such as medications that could support bone strength. An x-ray and referral to orthopedics have been initiated to better understand and manage osteoarthritis, potentially through physical therapy or other interventions. I recommend maintaining dietary changes and increased physical activity for hypercholesterolemia management. Pre-diabetes and associated risks will be monitored and managed through lifestyle changes. Suspension of Vitamin supplements will continue based on prior elevated laboratory results, pending reassessment. Refill sent on her gabapentin prescription for treatment restless leg syndrome Orders: Orders XR knee LT 4V 12/10/24 M25.562 - Pain in left knee Referrals Orthopedics Referral M25.562 - Pain in left knee, R26.2 - Difficulty in walking, not elsewhere classified Endocrinology Referral M81.0 - Age-related osteoporosis without current pathological fracture Medications: Refilled gabapentin 300 mg PO DAILY@0900 30 caps 5RF restless leg syndrome
== END 2024-12-10 10:13 | disposition home or self-care (01) ==
LOC: HO.HMCC 08:52
PROVIDERS: PCP Internal Medicine; Visit Provider Internal Medicine
DX: M81.0 Age-related osteoporosis without current pathological fracture (principal); M25.562 Pain in left knee; G89.29 Other chronic pain; R26.2 Difficulty in walking, not elsewhere classified; R79.89 Other specified abnormal findings of blood chemistry; G25.81 Restless legs syndrome

== ENCOUNTER → 2024-12-10 13:43 | Outpatient (BNV) | payer MEDICARE, SELFPAY | PROVIDERS: PCP Internal Medicine; Visit Provider Radiology Diagnostic Radiology | DX: M17.12 Unilateral primary osteoarthritis, left knee (principal) | CPT/HCPCS: 73564 ==

== ENCOUNTER 2024-12-15 11:36 | Emergency (ER) | payer MEDICARE, SELFPAY ==
--- NOTE | 2024-12-15 | ECG_ITS ---
Test Reason : CHEST PAIN Blood Pressure : */* mmHG Vent. Rate : 55 BPM Atrial Rate : 55 BPM P-R Int : 226 ms QRS Dur : 114 ms QT Int : 460 ms P-R-T Axes : 19 -35 5 degrees QTcB Int : 440 ms Sinus bradycardia with 1st degree A-V block Left axis deviation Moderate voltage criteria for LVH, may be normal variant ( R in aVL , John product ) Cannot rule out Anterior infarct , age undetermined Abnormal ECG When compared with ECG of 20-Sep-2020 20:28, MD interval has increased Vent. rate has decreased by [address] no longer depressed in Inferior leads Nonspecific T wave abnormality now evident in Anterior leads Referred By: Generic ED Physician Electronically Signed By: TANYA CARR MD
--- NOTE | ~2024-12-15 | CT_ITS ---
CLINICAL HISTORY: chest pain CT angiography chest with contrast. 3D Postprocessing. Comparison: None Findings: Contrast bolus timing is somewhat suboptimal. There is no large central or proximal segmental pulmonary embolism and there is no heart strain by CT. Distal segmental and subsegmental branches are not entirely well evaluated. No mediastinal adenopathy or pericardial effusion. Lungs demonstrate mild airway thickening. No effusion. No pneumothorax. The visualized upper abdomen demonstrates no definite acute process. Osseous structures are unremarkable. Impression: No large central or proximal segmental pulmonary embolism and no heart strain by CT. See details above This document has been electronically signed by: Ramone Jarrell MD on 12/15/2024 18:39:54
[2024-12-15 11:52] VITALS: BP 157/75; PULSE 57; RESP 18; TEMP 36.9; O2SAT 93; BMI 39.3
--- NOTE | 2024-12-15 11:55 | ED_ITS ---
HPI - Chest Pain General Chief Complaint: Chest Pain Stated Complaint: Chest pain Time Seen by Provider: 12/15/24 16:42 Related Data Home Medications ?Medication ?Instructions ?Recorded ?Confirmed ascorbate calcium (vitamin C) 500 500 mg PO DAILY 04/06/21 11/15/24 mg tablet cholecalciferol (vitamin D3) 10 10 mcg PO DAILY 04/06/21 11/15/24 mcg (400 unit) capsule multivitamin 1 tab PO DAILY 04/06/21 11/15/24 warfarin 5 mg tablet 2.5 mg PO .COMPLEX 02/12/24 11/23/24 Previous Rx's ?Medication ?Instructions ?Recorded bumetanide 2 mg tablet 1 mg (1/2 x 2 mg) PO DAILY #90 tabs 12/02/23 amiodarone 200 mg tablet 200 mg PO DAILY #90 tabs 07/20/24 gabapentin 300 mg capsule 300 mg PO DAILY@0900 restless leg 12/10/24 syndrome #30 caps valacyclovir 1 gram tablet 1,000 mg PO TID shingles #30 tabs 12/15/24 (Valtrex) Allergies Allergy/AdvReac Type Severity Reaction Status Date / Time Sulfa (Sulfonamide Allergy Unknown RASH Verified 12/15/24 11:53 Antibiotics) [SULFA(SULFONAMIDE ANTIBIOTICS)] codeine AdvReac Vomiting Verified 12/15/24 11:53 oxycodone AdvReac Gastrointestinal Verified 12/15/24 11:53 Upset PMFSH Past Medical History Medical History History of kidney stones Dyslipidemia Osteoporosis Impaired fasting glucose Vaccine refused by patient Elevated brain natriuretic peptide (BNP) level Anemia Morbid obesity Iliotibial band syndrome Lumbosacral radiculopathy due to osteoarthritis of spine History of deep vein thrombophlebitis of lower extremity Positive ALVIN (antinuclear antibody) CKD (chronic kidney disease) stage 3, GFR 30-59 ml/min Osteoarthritis of right ankle and foot Postmenopausal Venous insufficiency of both lower extremities Diverticulitis Peripheral vascular complication of surgical procedure Peripheral vascular disease Hyperlipidemia DVT (deep venous thrombosis) Diastolic heart failure Paroxysmal A-fib BERE (obstructive sleep apnea) Surgical History History of lithotripsy History of cardiac cath Hx of vascular surgery H/O hysterectomy for benign disease Family History Family History Father Emphysema, unspecified Mother No problems noted. Brother Atrial fibrillation Sister Atrial fibrillation Sister Breast cancer Social History Social History Household Members: None Housing: House Do you presently have visiting nurse or other home services: No Alcohol intake: never Patient Tobacco Use Status: Never used Tobacco e-Cigarette/Vaping Use: Never Used Advance Directives: No Advance Directives Information Provided: Yes Do you have a plan to hurt others: No Plan service: No Current occupational status: retired and disabled Current occupation: rt handed Cognitive needs: No Hearing needs: No Vision needs: Yes Physical Exam 2 Vital Signs: Vital Signs: Last Vital Signs Temp 98.1 F 12/15/24 17:23 Pulse 63 12/15/24 17:23 Resp 20 12/15/24 17:23 BP 178/80 H 12/15/24 17:23 Pulse Ox 94 12/15/24 17:23 O2 Del Method Room Air 12/15/24 17:23 BMI result Body Mass Index 39.3 Course Course Course Narrative: This is a rapid medical exam performed by Jad Soriano NP: Additional HPI, ROS, PE not included below will be deferred to primary provider. Patient is a 69 year old female with history of afib not currenlty anticoagulated presenting with complaint of left sided chest pain wrapping under breast. Denies dyspnea, nausea, vomiting. Plan: EKG, labs Medications Administered Discontinued Medications Generic Name Dose Route Start Last Admin Trade Name Betsey PRN Reason Stop Dose Admin Iohexol 65 ml 12/15/24 17:58 12/15/24 17:59 Iohexol 350 Mg/Ml 100 Ml Infus..Btl IV 12/15/24 17:59 65 ml ONCE ONE Administration Medical Decision Making Lab Data 12/15/24 12:15 12/15/24 12:15 Labs: Lab Results 12/15/24 12/15/24 Range/Units 12:15 16:48 WBC 3.8 L (4.8-10.8) X10*3/uL RBC 4.54 (4.20-5.50) X10*6/uL Hgb 14.0 (12.0-16.0) g/dl Hct 41.5 (37.0-47.0) % MCV 91.4 (80.0-98.0) fL MCH 30.8 (27.0-33.0) pg MCHC 33.7 (31.0-35.0) g/dl RDW 13.9 (11.0-16.0) % Plt Count 199 D (160-400) X10*3/uL MPV 10.2 (9.4-12.3) fL Immature Gran % (Auto) 0.5 H (0.0-0.4) % Neut % (Auto) 59.8 (45-73) % Lymph % (Auto) 27.6 (20-40) % [place] % (Auto) 8.7 (2-11) % Eos % (Auto) 2.6 (0-4) % Baso % (Auto) 0.8 (0-2) % Lymph # (Auto) 1.1 L (1.2-4.9) X10*3/uL [place] # (Auto) 0.3 (0.1-1.2) X10*3/uL Eos # (Auto) 0.1 (0.0-0.4) X10*3/uL Baso # (Auto) 0.0 (0.0-0.2) X10*3/uL Abs Immat Gran (auto) 0.02 (0.00-0.03) X10*3/uL Absolute Neuts (auto) 2.3 (2.0-8.3) x10*3/uL Absolute Nucleated RBC 0.000 (0.0-0.012) X10*3/uL Nucleated RBC % (auto) 0.0 (0.0-0.2) /100WBC PT 26.7 H (10.9-12.4) SEC INR 2.3 H (0.9-1.1) Sodium 140 (135-145) mmol/L Potassium 3.9 (3.3-5.1) mmol/L Chloride 105 (96-108) mmol/L Carbon Dioxide 30 H (22-29) mmol/L Anion Gap 9 L (12-20) BUN 16 (9-16) mg/dL Creatinine 1.05 (0.5-1.4) mg/dL Estim Creat Clear Calc 62.4 Estimated GFR 52 Random Glucose 101 (60-115) mg/dL Calcium 9.5 (8.4-10.2) mg/dL Troponin I High Sens < 2.7 3.3 (<3.5-17.0) ng/L Discharge Plan Discharge Clinical Impression: Shingles, Chest pain Patient Disposition: Home, Self-Care Instructions: Chest Pain (ED), Shingles (ED) Prescriptions: New valacyclovir [Valtrex] 1 gram tablet 1,000 mg PO TID Qty: 30 0RF No Action bumetanide 2 mg tablet 1 mg PO DAILY Qty: 90 1RF amiodarone 200 mg tablet 200 mg PO DAILY Qty: 90 3RF multivitamin Tablet 1 tab PO DAILY ascorbate calcium (vitamin C) 500 mg tablet 500 mg PO DAILY cholecalciferol (vitamin D3) 10 mcg (400 unit) capsule 10 mcg PO DAILY gabapentin 300 mg capsule 300 mg PO DAILY@0900 Qty: 30 5RF warfarin 5 mg tablet 2.5 mg PO .COMPLEX Protocol: Dose Management Condition: Friday (Week One) Dose/Route: 5 mg Instruction: 1 x 5 mg tablet Condition: Friday Dose/Route: 2.5 mg Instruction: 0.5 x 5 mg tablets Condition: Friday Dose/Route: 2.5 mg Instruction: 0.5 x 5 mg tablets Condition: Friday Dose/Route: 2.5 mg Instruction: 0.5 x 5 mg tablets Condition: Dose/Route: 5 mg Instruction: 1 x 5 mg tablet Condition: Friday Dose/Route: 2.5 mg Instruction: 0.5 x 5 mg tablets Condition: Friday Dose/Route: 2.5 mg Instruction: 0.5 x 5 mg tablets Condition: Friday (Week Two) Dose/Route: 5 mg Instruction: 1 x 5 mg tablet Condition: Friday Dose/Route: 2.5 mg Instruction: 0.5 x 5 mg tablets Condition: Friday Dose/Route: 2.5 mg Instruction: 0.5 x 5 mg tablets Condition: Friday Dose/Route: 2.5 mg Instruction: 0.5 x 5 mg tablets Condition: Dose/Route: 5 mg Instruction: 1 x 5 mg tablet Condition: Friday Dose/Route: 2.5 mg Instruction: 0.5 x 5 mg tablets Condition: Friday Dose/Route: 2.5 mg Instruction: 0.5 x 5 mg tablets Protocol Text: Adjustment Start Date: Friday11/23/24 INR Value: 2.4 INR Date: 11/23/24 Recheck Date: 12/15/24 Rx Instructions: 2.5 mg X5 DAYS/ 5MG X 2 DAYS ( and ) Referrals: Annalee De La Torre MD [Primary Care Provider] - 12/20/24 Print Language: Divehi
[2024-12-15 12:32] LABS: MANUAL DIFF FLAG NO
[2024-12-15 12:37] LABS: Basophils Percent Auto 0.8 % (0-2); Eosinophils Absolute Auto 0.1 X10*3/uL (0.0-0.4); Eosinophils Percent Auto 2.6 % (0-4); Hematocrit 41.5 % (37.0-47.0); Imm Gran Abs Auto 0.02 X10*3/uL (0.00-0.03); Imm Gran Pct Auto 0.5 % (0.0-0.4); Lymphocytes Absolute Auto 1.1 X10*3/uL (1.2-4.9); Lymphocytes Percent Auto 27.6 % (20-40); Mean Corpuscular HGB Conc 33.7 g/dl (31.0-35.0); Mean Corpuscular Hemoglobin 30.8 pg (27.0-33.0); Mean Corpuscular Volume 91.4 fL (80.0-98.0); Mean Platelet Volume 10.2 fL (9.4-12.3); Monocytes Absolute Auto 0.3 X10*3/uL (0.1-1.2); Monocytes Percent Auto 8.7 % (2-11); Neutrophils Absolute Auto 2.3 x10*3/uL (2.0-8.3); Neutrophils Percent Auto 59.8 % (45-73); Platelet Count 199 X10*3/uL (160-400); Red Blood Count 4.54 X10*6/uL (4.20-5.50); Red Cell Distribution Width 13.9 % (11.0-16.0); White Blood Count 3.8 X10*3/uL (4.8-10.8)
[2024-12-15 12:40] LABS: INTERNATIONAL NORM RATIO 2.3 (0.9-1.1); Prothrombin Time 26.7 SEC (10.9-12.4)
[2024-12-15 12:47] LABS: Anion Gap 9 (12-20); Blood Urea Nitrogen 16 mg/dL (9-16); Calcium 9.5 mg/dL (8.4-10.2); Carbon Dioxide 30 mmol/L (22-29); Chloride 105 mmol/L (96-108); Creatinine Clr Calc Pharmacy 62.4; Estimated Glomerular Filt Rate 52; Glucose Random 101 mg/dL (60-115); Potassium 3.9 mmol/L (3.3-5.1); Sodium 140 mmol/L (135-145)
[2024-12-15 12:56] LABS: Troponin-I High Sensitivity < 2.7 ng/L (<3.5-17.0)
--- NOTE | 2024-12-15 17:01 | ED.CHESTPAIN ---
HPI - Chest Pain General Chief Complaint: Chest Pain Stated Complaint: Chest pain Time Seen by Provider: 12/15/24 16:42 History of Present Illness HPI narrative: patient is a 69-year-old female with a history of having chest pain. The chest pain radiates from the left chest to the back. It is worse with deep breath. There is no history of diabetes, hypertension, high cholesterol, smoking. Patient claims she had a stroke when she was very young as a teenager. Positive history of blood clots in the past. Currently on Coumadin compliant with medication. Patient denies any shortness of breath any new leg swelling. But the pain is worse with deep breath. Worse with specific movement. It is sharp. Patient is from home. No recent travel. No recent stress test. Related Data Home Medications ?Medication ?Instructions ?Recorded ?Confirmed ascorbate calcium (vitamin C) 500 500 mg PO DAILY 04/06/21 11/15/24 mg tablet cholecalciferol (vitamin D3) 10 10 mcg PO DAILY 04/06/21 11/15/24 mcg (400 unit) capsule multivitamin 1 tab PO DAILY 04/06/21 11/15/24 warfarin 5 mg tablet 2.5 mg PO .COMPLEX 02/12/24 11/23/24 Previous Rx's ?Medication ?Instructions ?Recorded bumetanide 2 mg tablet 1 mg (1/2 x 2 mg) PO DAILY #90 tabs 12/02/23 amiodarone 200 mg tablet 200 mg PO DAILY #90 tabs 07/20/24 gabapentin 300 mg capsule 300 mg PO DAILY@0900 restless leg 12/10/24 syndrome #30 caps valacyclovir 1 gram tablet 1,000 mg PO TID shingles #30 tabs 12/15/24 (Valtrex) Allergies Allergy/AdvReac Type Severity Reaction Status Date / Time Sulfa (Sulfonamide Allergy Unknown RASH Verified 12/15/24 11:53 Antibiotics) [SULFA(SULFONAMIDE ANTIBIOTICS)] codeine AdvReac Vomiting Verified 12/15/24 11:53 oxycodone AdvReac Gastrointestinal Verified 12/15/24 11:53 Upset Review of Systems Review of Systems: Positive chest pain Yes all other systems are reviewed and are negative PMFSH Past Medical History Attestation statement: The following information was validated with the patient. Source: unable to obtain Medical History History of kidney stones Dyslipidemia Osteoporosis Impaired fasting glucose Vaccine refused by patient Elevated brain natriuretic peptide (BNP) level Anemia Morbid obesity Iliotibial band syndrome Lumbosacral radiculopathy due to osteoarthritis of spine History of deep vein thrombophlebitis of lower extremity Positive ALVIN (antinuclear antibody) CKD (chronic kidney disease) stage 3, GFR 30-59 ml/min Osteoarthritis of right ankle and foot Postmenopausal Venous insufficiency of both lower extremities Diverticulitis Peripheral vascular complication of surgical procedure Peripheral vascular disease Hyperlipidemia DVT (deep venous thrombosis) Diastolic heart failure Paroxysmal A-fib BERE (obstructive sleep apnea) Surgical History History of lithotripsy History of cardiac cath Hx of vascular surgery H/O hysterectomy for benign disease Family History Family History Father Emphysema, unspecified Mother No problems noted. Brother Atrial fibrillation Sister Atrial fibrillation Sister Breast cancer Social History Social History Household Members: None Housing: House Do you presently have visiting nurse or other home services: No Alcohol intake: never Patient Tobacco Use Status: Never used Tobacco e-Cigarette/Vaping Use: Never Used Advance Directives: No Advance Directives Information Provided: Yes Do you have a plan to hurt others: No Plan service: No Current occupational status: retired and disabled Current occupation: rt handed Cognitive needs: No Hearing needs: No Vision needs: Yes Physical Exam Vital Signs: Vital Signs: Last Vital Signs Temp 98.1 F 12/15/24 17:23 Pulse 63 12/15/24 17:23 Resp 20 12/15/24 17:23 BP 178/80 H 12/15/24 17:23 Pulse Ox 94 12/15/24 17:23 O2 Del Method Room Air 12/15/24 17:23 BMI result Body Mass Index 39.3 Appearance: Alert. Oriented X3. No acute distress. Eyes: Pupils equal, round and reactive to light. ENT: Pharynx normal. Neck: Normal inspection. Neck supple. No lymph nodes noted. No crepitus CVS: Normal heart rate and rhythm. Pulses normal. Normal S1 and S2 Respiratory: No respiratory distress. Breath sounds normal. No Wheezing. No rales Abdomen: Soft and nontender. No rigidity. No distention. good BS x4 Skin: Skin warm and dry. Normal skin color. Normal skin turgor. Extremities: No lower extremity edema. Neurovascular intact to all extremities. No Lacerations. No Rash Neuro: Oriented X 3. No motor deficit. No sensory deficit. Moving all extermities. No slurred speech Medications Administered Discontinued Medications Generic Name Dose Route Start Last Admin Trade Name Betsey PRN Reason Stop Dose Admin Iohexol 65 ml 12/15/24 17:58 12/15/24 17:59 Iohexol 350 Mg/Ml 100 Ml Infus..Btl IV 12/15/24 17:59 65 ml ONCE ONE Administration Medical Decision Making Medical Decision Making [facility] Narrative: My interpretation of patient's EKG showed a sinus rhythm heart rate is proximally 60 LA QRS QTC normal no acute ST segment elevation when compared to a previous EKG it is essentially unchanged. Patient's chest pain atypical for ACS it has been constant ongoing for the last 2 days. She is 69 years old she has 1 risk factor she had a previous stroke in the past. Patient's troponin is negative. EKG is not changed. Her heart score is less than 3. A 2nd set of enzymes was nevertheless ordered. Patient's lower risk for PE but has chest pain that is worse with deep breath it is sharp. Patient is on Coumadin already. The INR was checked it was approximately 2.3. Grossly therapeutic. Making the risk for PE lower. Nevertheless patient has chest pain going to the shoulder worse with deep breath will get a CTA of the chest. No fever no chills. Symptoms not consistent with pneumonia. CTA of the chest was grossly negative. When I reassessed the patient patient had a vesicular lesion noted on the skin on the left side radiating from the back to the chest. It has a red base. Is consistent with having shingles. Patient will be started on Valtrex. Follow-up on an outpatient basis. Currently in stable condition. Differential Diagnosis Differential Diagnoses: The differential diagnosis associated with the presentation includes Pneumonia, ACS, PE, dissection Admission/Observation Consideration of admission/observation: Escalation of care including admission/observation considered Lab Data [facility] Lab Attestation statement: I reviewed the patient's lab results. 12/15/24 12:15 12/15/24 12:15 Labs: Lab Results 12/15/24 12/15/24 Range/Units 12:15 16:48 WBC 3.8 L (4.8-10.8) X10*3/uL RBC 4.54 (4.20-5.50) X10*6/uL Hgb 14.0 (12.0-16.0) g/dl Hct 41.5 (37.0-47.0) % MCV 91.4 (80.0-98.0) fL MCH 30.8 (27.0-33.0) pg MCHC 33.7 (31.0-35.0) g/dl RDW 13.9 (11.0-16.0) % Plt Count 199 D (160-400) X10*3/uL MPV 10.2 (9.4-12.3) fL Immature Gran % (Auto) 0.5 H (0.0-0.4) % Neut % (Auto) 59.8 (45-73) % Lymph % (Auto) 27.6 (20-40) % [place] % (Auto) 8.7 (2-11) % Eos % (Auto) 2.6 (0-4) % Baso % (Auto) 0.8 (0-2) % Lymph # (Auto) 1.1 L (1.2-4.9) X10*3/uL [place] # (Auto) 0.3 (0.1-1.2) X10*3/uL Eos # (Auto) 0.1 (0.0-0.4) X10*3/uL Baso # (Auto) 0.0 (0.0-0.2) X10*3/uL Abs Immat Gran (auto) 0.02 (0.00-0.03) X10*3/uL Absolute Neuts (auto) 2.3 (2.0-8.3) x10*3/uL Absolute Nucleated RBC 0.000 (0.0-0.012) X10*3/uL Nucleated RBC % (auto) 0.0 (0.0-0.2) /100WBC PT 26.7 H (10.9-12.4) SEC INR 2.3 H (0.9-1.1) Sodium 140 (135-145) mmol/L Potassium 3.9 (3.3-5.1) mmol/L Chloride 105 (96-108) mmol/L Carbon Dioxide 30 H (22-29) mmol/L Anion Gap 9 L (12-20) BUN 16 (9-16) mg/dL Creatinine 1.05 (0.5-1.4) mg/dL Estim Creat Clear Calc 62.4 Estimated GFR 52 Random Glucose 101 (60-115) mg/dL Calcium 9.5 (8.4-10.2) mg/dL Troponin I High Sens < 2.7 3.3 (<3.5-17.0) ng/L Independent Interpretation I performed an independent interpretation of an: EKG ( Sinus heart rate is 60 LA QRS QTC normal no acute STsegment elevation when compared to a previous EKG there is no significant changes.) and CT Scan ( CTA chest grossly negative) Radiology Impression Discussion of test interpretation with radiology: I have reviewed the radiologist's reading. External Record Review External record reviewed: Inpatient record Discharge Plan Discharge Clinical Impression: Shingles, Chest pain Patient Disposition: Home, Self-Care Instructions: Chest Pain (ED), Shingles (ED) Prescriptions: New valacyclovir [Valtrex] 1 gram tablet 1,000 mg PO TID Qty: 30 0RF No Action bumetanide 2 mg tablet 1 mg PO DAILY Qty: 90 1RF amiodarone 200 mg tablet 200 mg PO DAILY Qty: 90 3RF multivitamin Tablet 1 tab PO DAILY ascorbate calcium (vitamin C) 500 mg tablet 500 mg PO DAILY cholecalciferol (vitamin D3) 10 mcg (400 unit) capsule 10 mcg PO DAILY gabapentin 300 mg capsule 300 mg PO DAILY@0900 Qty: 30 5RF warfarin 5 mg tablet 2.5 mg PO .COMPLEX Protocol: Dose Management Condition: Friday (Week One) Dose/Route: 5 mg Instruction: 1 x 5 mg tablet Condition: Friday Dose/Route: 2.5 mg Instruction: 0.5 x 5 mg tablets Condition: Friday Dose/Route: 2.5 mg Instruction: 0.5 x 5 mg tablets Condition: Friday Dose/Route: 2.5 mg Instruction: 0.5 x 5 mg tablets Condition: Dose/Route: 5 mg Instruction: 1 x 5 mg tablet Condition: Friday Dose/Route: 2.5 mg Instruction: 0.5 x 5 mg tablets Condition: Friday Dose/Route: 2.5 mg Instruction: 0.5 x 5 mg tablets Condition: Friday (Week Two) Dose/Route: 5 mg Instruction: 1 x 5 mg tablet Condition: Friday Dose/Route: 2.5 mg Instruction: 0.5 x 5 mg tablets Condition: Friday Dose/Route: 2.5 mg Instruction: 0.5 x 5 mg tablets Condition: Friday Dose/Route: 2.5 mg Instruction: 0.5 x 5 mg tablets Condition: Dose/Route: 5 mg Instruction: 1 x 5 mg tablet Condition: Friday Dose/Route: 2.5 mg Instruction: 0.5 x 5 mg tablets Condition: Friday Dose/Route: 2.5 mg Instruction: 0.5 x 5 mg tablets Protocol Text: Adjustment Start Date: Friday11/23/24 INR Value: 2.4 INR Date: 11/23/24 Recheck Date: 12/15/24 Rx Instructions: 2.5 mg X5 DAYS/ 5MG X 2 DAYS ( and ) Referrals: Annalee De La Torre MD [Primary Care Provider] - 12/20/24 Print Language: Greek
[2024-12-15 17:13] LABS: Troponin-I High Sensitivity 3.3 ng/L (<3.5-17.0)
[2024-12-15 17:23] VITALS: BP 178/80; PULSE 63; RESP 20; TEMP 36.7; O2SAT 94
--- NOTE | 2024-12-15 17:35 | PC.NURSE ---
patient presents to the ED with left sided chest pain since friday. patient states it starts in her left breast and sometimes goes to her left shoulder. patient describes the pain as constant but only radiates at times. patient changed into hospital attire. This RN noticed red patchy rash on patients back, patient states she never noticed it, ED doctor notified, patient noted to have shingles rash also under left breast. IV started on patients left arm, #20 LAC
[2024-12-15] MEDS: iohexoL 350 MG/ML 100 ML INFUS..BTL 65 ML IV (17:59)
[2024-12-15 19:35] VITALS: BP 126/66; PULSE 58; RESP 16; TEMP 36.9; O2SAT 96
[2024-12-15] MEDS: valACYclovir HCL 1,000 MG TABLET 1000 MG PO (20:24)
[2024-12-15 20:30] VITALS: BP 126/66; PULSE 58; RESP 16; TEMP 36.9; O2SAT 96
== END 2024-12-15 20:31 | disposition home or self-care (01) ==
PROVIDERS: Registered Nurse Emergency; Emergency Provider Emergency Medicine Emergency Medical Services; PCP Internal Medicine
DX: R07.89 Other chest pain (principal); B02.8 Zoster with other complications; M54.50 Low back pain, unspecified; Z79.01 Long term (current) use of anticoagulants; Z79.899 Other long term (current) drug therapy
CPT/HCPCS: 36415; 71275; 80048; 84484; 85025; 85610; 93005; 99284; Q9967

== ENCOUNTER → 2024-12-15 11:59 | Outpatient (BNV) | payer MEDICARE, SELFPAY | PROVIDERS: PCP Internal Medicine; Visit Provider Internal Medicine Cardiovascular Disease | DX: R94.31 Abnormal electrocardiogram [ECG] [EKG] (principal) | CPT/HCPCS: 93010 ==

== ENCOUNTER → 2024-12-15 17:00 | Outpatient (BNV) | payer MEDICARE, SELFPAY | PROVIDERS: Emergency Provider Emergency Medicine Emergency Medical Services; PCP Internal Medicine; Visit Provider Radiology Vascular & Interventional Radiology | DX: R07.9 Chest pain, unspecified (principal) | CPT/HCPCS: 71275 ==

== ENCOUNTER → 2024-12-16 09:36 | Outpatient (BNVA) | payer MEDICARE, SELFPAY | PROVIDERS: PCP Internal Medicine; Visit Provider Internal Medicine ==

== ENCOUNTER 2024-12-28 13:44 | Outpatient (AMB) | payer MEDICARE, SELFPAY ==
[2024-12-28 13:48] VITALS: BP 140/80; PULSE 55; BMI 38.7
--- NOTE | 2024-12-28 13:48 | MHC.OFFVIS ---
Vital Signs 12/28/24 13:48 Height 5 ft 5 in Weight 232 lb 12.93 oz BMI 38.7 BP 140/80 H Blood Pressure Location Lt brachial Position Sitting Pulse 55 Intake Visit Reasons: f/u [facility] ED Art Therapist Required: No Accompanied by: Friend Allergies Sulfa (Sulfonamide Antibiotics) [SULFA(SULFONAMIDE ANTIBIOTICS)] Allergy (Unknown, Verified 12/15/24 11:53) RASH codeine Adverse Reaction (Verified 12/15/24 11:53) Vomiting oxycodone Adverse Reaction (Verified 12/15/24 11:53) Gastrointestinal Upset Medication List - Last Reconciled 12/28/24 by Jorden Lisa NP amiodarone 200 mg PO DAILY ascorbate calcium (vitamin C) 500 mg PO DAILY bumetanide 1 mg (1/2 x 2 mg) PO DAILY cholecalciferol (vitamin D3) 10 mcg PO DAILY gabapentin 300 mg PO DAILY@0900 multivitamin 1 tab PO DAILY warfarin See Protocol 2.5 mg X5 DAYS/ 5MG X 2 DAYS ( and ) HPI Comments Details: This is a 69-year-old female patient presenting for hospital discharge follow-up. The patient has a history of chronic kidney disease, diastolic heart failure, paroxysmal AFib, and sleep apnea. She was recently evaluated in the ER for left-sided chest pain that began suddenly 5 days prior to visiting the ER. During her ER visit, she was diagnosed with shingles. The patient reports that the chest pain is localized to the area under her left breast and radiates into her upper back, corresponding to the location of the vesicles. She has completed her course of Valtrex, but her pain persist. The patient describes the pain as constant and sharp, rating it at 6/10. She has tried both regular and high-dose Tylenol with minimal relief. She denies any other associated symptoms such as exertional shortness of breath, palpitations, dizziness, orthopnea, PND, leg edema, presyncope, or syncope. [facility] Medical History History of kidney stones Dyslipidemia Osteoporosis Impaired fasting glucose Vaccine refused by patient Elevated brain natriuretic peptide (BNP) level Anemia Morbid obesity Iliotibial band syndrome Lumbosacral radiculopathy due to osteoarthritis of spine History of deep vein thrombophlebitis of lower extremity Positive ALVIN (antinuclear antibody) CKD (chronic kidney disease) stage 3, GFR 30-59 ml/min Osteoarthritis of right ankle and foot Postmenopausal Venous insufficiency of both lower extremities Diverticulitis Peripheral vascular complication of surgical procedure Peripheral vascular disease Hyperlipidemia DVT (deep venous thrombosis) Diastolic heart failure Paroxysmal A-fib BERE (obstructive sleep apnea) Surgical History History of lithotripsy History of cardiac cath Hx of vascular surgery H/O hysterectomy for benign disease Family History Father Emphysema, unspecified Mother No problems noted. Brother Atrial fibrillation Sister Atrial fibrillation Sister Breast cancer Social History Household Members: None Housing: House Do you presently have visiting nurse or other home services: No Alcohol intake: never Patient Tobacco Use Status: Never used Tobacco e-Cigarette/Vaping Use: Never Used service: No Current occupational status: retired and disabled Current occupation: rt handed Cognitive needs: No Hearing needs: No Vision needs: Yes Review of Systems Const Denies chills, Denies fatigue, Denies fever(s), Denies weight gain and Denies weight loss ENT Denies dizziness Card Reports chest pain, Denies leg edema, Denies lightheadedness, Denies palpitations, Reports dyspnea, Denies dyspnea on exertion, Denies orthopnea and Denies other Resp Denies cough, Reports dyspnea and Denies dyspnea on exertion GI Denies hematochezia and Denies change in stool character Musc Denies abnormal gait, Denies muscle weakness, Denies numbness, Denies radiating pain into limb and Denies tingling Neuro Denies abnormal gait, Denies dizziness, Denies numbness and Denies tingling Endo Denies fatigue and Denies palpitations Physical Exam Vital Signs: Last Vital Signs Pulse 55 12/28/24 13:48 BP 140/80 H 12/28/24 13:48 BMI result Body Mass Index 38.7 Const General: cooperative, healthy appearing, comfortable and no acute distress Orientation/consciousness: patient oriented x3 HEENT Head: Yes normal to inspection Neck Neck: Yes normal visual inspection, Yes trachea midline and Yes supple Chest Chest palpation & inspection: normal inspection of the chest Resp Effort & Inspection: normal respiratory effort Auscultation: clear to auscultation bilaterally, no crackles, no rales, no rhonchi and no wheezes Cardio Jugular venous distension: no JVD Palpation: normal PMI Rate: regular rate Rhythm: regular rhythm Heart sounds: S1 normal heart sound present, S2 normal heart sound present, no click, no gallops, no murmurs and no rubs Peripheral pulses: Peripheral pulses 2+ throughout GI Inspection: Yes normal to inspection Palpation (GI): Soft to palpation Auscultation: normal bowel sounds Skin Lesions: lesion noted (Crusted lesions under her left breast and into her upper back ) Neuro General: patient oriented x3 Extrem General: Yes normal to inspection, No no pedal edema and No calf tenderness Psych Appearance: grossly normal Mental Status: mental status grossly normal Speech and movement: Normal speech and movement present Office Procedures EKG Details: EKG today showed underlying sinus bradycardia with first-degree AV block, rate 55 beats per minute, left axis deviation, nonspecific T-wave which is [place], [place]. [id number], Complete Assessment & Plan Assessment & Plan (1) Atypical chest pain: Code(s): R07.89 - Other chest pain Plan: Patient's complaint of chest pain appears atypical in nature and is more likely related to shingles. I have sent a message to her PCP's office to address the ongoing pain associated with this. (2) Paroxysmal A-fib: Code(s): I48.0 - Paroxysmal atrial fibrillation Category: Medical Plan: EKG today showed sinus Ryan at 55 beats per minute with first-degree AV block. For rhythm control approach continue amiodarone. Continue with full oral anticoagulation therapy with warfarin. (3) Diastolic heart failure: Code(s): I50.30 - Unspecified diastolic (congestive) heart failure Category: Medical Plan: Clinically euvolemic, continue Bumex. (4) BERE (obstructive sleep apnea): Code(s): G47.33 - Obstructive sleep apnea (adult) (pediatric) Category: Medical Plan: Continue CPAP therapy. (5) Hospital discharge follow-up: Code(s): Z09 - Encounter for follow-up examination after completed treatment for conditions other than malignant neoplasm Plan: As above. Patient will follow-up with us in the office, as needed. In the interim, patient will call us with any concerns. This note was generated using voice recognition software. While every effort has been made to ensure accuracy and proper structural steel equipment erector, there may be occasional errors that could affect the content or meaning of the described symptoms. Orders: Orders AMB EKG-In Office Today R07.89 - Other chest pain Coding Level of Care Code Est Pt Level 4 (22091) Diagnoses Atypical chest pain R07.89 Paroxysmal A-fib I48.0 Diastolic heart failure I50.30 BERE (obstructive sleep apnea) G47.33 Hospital discharge follow-up Z09 CPT Codes EKG - CPT: 73172-[id number], Complete ([id number]) Time Spent (min) 31 Comment Time spent in reviewing the chart, test results, assessment, counseling and documentation.
--- OUTSIDE RECORDS SUMMARY | 2024-12-28 13:55 | XMS_ITS | Clinical Summary ---
Author Organization [facility] Facility Address [address] [address] Care Team Providers Care Inbound Sales Manager Name Role Phone Dena Gore MD Primary Care Provider [phone] Allergies Active Allergy Reactions Criticality Noted Date Comments Hydrocodone-Acetaminophen Other (see comments) 07/18/2017 Sulfa Antibiotics Rash Low 02/05/2018 Sulfacetamide Rash Low 03/18/2007 Medications warfarin (COUMADIN) 5 MG tablet Take 5 mg by mouth in the morning. 09/19/2020 Active gabapentin (NEURONTIN) 300 MG capsule Take 300 mg by mouth 03/07/2022 Active cyanocobalamin (VITAMIN B-12) 100 MCG tablet Take 100 mcg by mouth in the morning. Active cholecalciferol (VITAMIN D-3) 25 MCG (1000 UT) capsule Take 1,000 Units by mouth in the morning. Active bumetanide (BUMEX) 2 MG tablet Take 1 mg by mouth 1 (one) time each day 02/15/2022 Active ascorbic acid (VITAMIN C) 250 MG tablet Take 250 mg by mouth in the morning. Active amiodarone (PACERONE) 200 MG tablet 04/22/2022 Active pyridoxine (VITAMIN B-6) 100 MG tablet TAKE 1 TABLET BY MOUTH EVERY DAY 06/04/2022 Active Active Problems Problem Noted Date Diagnosed Date Recurrent kidney stone 06/17/2022 Recurrent kidney stone 06/17/2022 Stage 3b chronic kidney disease 04/25/2022 Renal osteodystrophy 04/25/2022 Chronic fatigue 03/17/2020 Viral disease 02/21/2020 Overview (04/25/2022): Last Assessment & Plan: Viral illness with components of GI and upper respiratory in the setting of PAF controlled with flecainide and patient on Coumadin. Her description of her symptoms at this moment does not require that she be seen at the [facility] but she should definitely be quarantined since onset of her symptoms Friday for 14 days. Patient works at [employer] and would like a note for work that legitimate as is her quarantine. We will write the note and send it to her. She does not have Internet connection. I do not think that we could fax it directly to her work without a release of information attached to it. This virtual telephone visit was completed from the patient's home/residence, and from the author's clinic/home office. A virtual visit was used during the COVID- [address] of an in-person visit. Consent for virtual care, including informing the patient that insurance will be billed, was discussed at the time of scheduling. I personally spent 15 minutes with the patient during this real-time interactive virtual clinical encounter, which was conducted using telephone-only technology, and >50% of which was devoted to counseling and coordinating care for the above issues. 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 The Celebrex should be okay with the Coumadin, monitor closely for abdominal distress or contusion. Body mass index 40+ - severely obese 12/07/2019 Overview (04/25/2022): Last Assessment & Plan: I talked to her about weight loss which is paramount Hypersomnia 06/03/2019 Osteopenia 02/26/2019 Allergic rhinitis 02/03/2019 Overview (04/25/2022): Reports positive to dust mites, mold, tree, grass, and weed pollens plus animal dander. Last Assessment & Plan: Long-standing history of perennial and seasonal allergic rhinitis. Exam today relatively unremarkable. Patient somewhat electing for use of both oral and nasal treatments. Recommendations: Arrange for aeroallergens skin testing. Patient informed must be off all antihistamines for 1 week prior to testing. Until then, can try [id number] antihistamine such as generic versions of Margy, Claritin, or Zyrtec. Prescription for nasal steroids, mometasone, sent as she can start trial if develops increasing symptoms with start of spring pollen season. Depending on response to above as well as allergy testing, could consider trial of montelukast versus allergy immunotherapy. Sleep hypoventilation 12/29/2018 Overview (04/25/2022): Last Assessment & Plan: Encourage compliance with her CPAP. Patient to seek trial of alternative interface for possible improved comfort. Recommend assess whether change in interface effects degree of upper respiratory symptoms. Chronic ankle pain 04/06/2018 Overview (04/25/2022): Last Assessment & Plan: Initiate PT given normal films. Pt to f/u with chiropractor for eval as well. As compression stockings seem to be helping relieve pressure from the area, suggest continue use until eval. Avoid brace with compression stocking use. Consider supportive brace to be used at work and with walking, with the goal of helping the transition into regular gentle walking regimen. Pt agreeable. Lightheadedness 02/27/2018 Anticoagulant effect 02/05/2018 Overview (04/25/2022): Last Assessment & Plan: She will remain on Coumadin for oral anticoagulation per her request Anxiety 02/05/2018 Deep venous thrombosis 02/05/2018 Overview (04/25/2022): Last Assessment & Plan: Continue on Coumadin, INR therapeutic. H/O: heart disorder 02/05/2018 Hypertriglyceridemia 02/05/2018 Mixed hyperlipidemia 02/05/2018 Overview (04/25/2022): Last Assessment & Plan: LDL should be less than 100 mg/dL. Overweight 02/05/2018 Pain of knee region 02/05/2018 Overview (04/25/2022): Last Assessment & Plan: Recommended xray imaging d/t chronic pain. Palpitations 02/05/2018 Overview (04/25/2022): Last Assessment & Plan: No recurrent atrial fibrillation in this patient. Routine general medical exam ination at a health care facility 02/05/2018 Overview (04/25/2022): Last Assessment & Plan: Due for screening eye exam. Has regular dental work. Varicose veins of lower limb co-occurrent with e indigo 02/05/2018 Overview (04/25/2022): Last Assessment & Plan: She has bilateral lower extremity swelling but at this time not a lot to fix in the surface system she does have deep vein valve regurgitation which needs to be treated conservatively with compression. Last Assessment & Plan: C/w prior examination, continue compression stockings. Monitor for any erythema, pain, increased swelling. Discussed conservative management. Rest/elevate right ankle as needed for current sx. Please f/u if any persistent or worsening swelling or tenderness. Stasis dermatitis 01/20/2018 Overview (04/25/2022): Last Assessment & Plan: Mild and asymptomatic Essential hypertension 10/06/2017 Overview (04/25/2022): Last Assessment & Plan: Well-controlled at this time Localized edema 10/06/2017 Overview (04/25/2022): Last Assessment & Plan: I may repeat her venous study. Paroxysmal atrial fibrillation 10/06/2017 Overview (04/25/2022): Last Assessment & Plan: This patient is maintained on warfarin for oral anticoagulation and flecainide for sinus rhythm I will have her see 1 of our EP doctors in 3 to 4 months Immunizations Name Administration Dates Next Due Influenza (IM) Preservative Free 08/06/2017,06/2013 Influenza, Unspecified 09/13/2014,08/27/2012 Pneumococcal Conjugate 13-Valent 02/26/2019 Tdap 04/15/2007 Family History Medical History Relation Comments Hypertension Mother Relation Status Comments Father Mother Social History Tobacco Use Types Packs/Day Years Used Date Smoking Tobacco: Never Assessed Tobacco Cessation:Counseling Given: No Alcohol Use Standard Drinks/Week Comments Not Currently 0 (1 standard drink = 0.6 oz pur e alcohol) Comments Unknown Sex and Gender Information Value Date Recorded Sex Assigned at Not on file Legal Sex Female 10:48 AM EDT Gender Identity Not on file Sexual Orientation Not on file Last Filed Vital Signs Vital Sign Reading Time Taken Comments Blood Pressure 121/60 04/25/2022 1:03 PM EDT Pulse 66 04/25/2022 1:03 PM EDT Temperature - - Respiratory Rate - - Oxygen Saturation 94% 04/25/2022 1:03 PM EDT Inhaled Oxygen Concentration - - Weight 68 kg (150 lb) 06/17/2022 11:17 AM EDT Height - - Body Mass Index - - Plan of Treatment Health Maintenance Due Date Last Done Comments Breast Cancer Screening 1955 Colorectal Cancer Screening: Annual FOBT 2005 Colorectal Cancer Screening: Colonoscopy 2005 Colorectal Cancer Screening: Sigmoidoscopy 2005 Pneumococcal Vaccine: 65+ Years (2 of 2 - PPSV23 or PCV20) 04/23/2019 02/26/2019 Influenza Vaccine (#1) 2024 7, 09/13/2014, 08/31/2013, Additional history exists Hepatitis B Vaccine Aged Out No longe r eligible based on patient's age to complete this topic Insurance MEDICARE [facility] MEDICARE [facility] Care Teams Inbound Sales Manager Relationship Specialty Start Date End Date Dena Gore MD [address] [place] [address] PCP - General Internal Medicine 03/13/22
--- OUTSIDE RECORDS SUMMARY | 2024-12-28 13:55 | XMS_ITS | Continuity of Care Document ---
Author Organization [facility] Address [address] [place] [address] Phone Care Team Providers Care Permaculture Contractor Name Role Phone Miguel ALBERTS, RVT, RPVI, [...] Providers Copied on Encounter [facility] [place], [address] [place] [address] Dr [address], [place], [id number], [place] tel:[phone] [place] - [place] No Information 4 Miguel ALBERTS RVT, MARY Montez. [address] [place] [address], [place], [id number], [place]. tel:[phone] [place] [facility] [place], [address] [place] [address] Dr Stack [address] 1000D[place]ie [place], [id number], [place] tel:[phone] [place] Varicose veins of left lower extremity with other complication s 4 Anjelica Reeder. [address] [place] [address], [facility] [place] [place], [id number], [place]. tel:[phone] Referring Provider: Korina FAJARDO, [address] [place] [address], [address]. tel:[phone] [place] [facility], [address] [place] [address] Dr [address], [place], [id number], [place] tel:[phone] [place] Encounter for follow-up examination after completed treatment for conditions other than malignant nePain in left leg 4 Miguel ALBERTS RVT, MARY Montez. [address] [place] [address], [place], [id number], [place]. tel:[phone] Referring Provider: Korina FAJARDO, [facility] [place], [address]. tel:[phone] [place] [facility], [address] [place] [address] Dr Stack 1000[address] 1000D[place]ie [place], [id number], [place] tel:[phone] [place] Varicose veins of left lower extremity with other complication s 4 Miguel ALBERTS RVT, MARY Montez. [address] [place] [address], [place], [place], [id number], [place]. tel:[phone] Referring Provider: Korina FAJARDO, [address] [place] [address], [facility]. tel:[phone] Office/Outpt E&M Established 15 Mins- CT & [place] [facility], [address] [place] [address] Dr Stack 1000Suite Dottie Greer [place], [id number], [place] tel:[phone] [place] Pruritus, unspecifiedV aricose veins of left lower extremity with other complication sLocalized edemaCramp and spasmRestles s legs syndrome 4 Miguel ALBERTS RVT, MARY Montez. [address] [place] [address], [facility] [place], [id number], [place]. tel:[phone] Referring Provider: Korina FAJARDO, [address] [place] [address], [facility]. tel:[phone] [facility], [address] [place] [address] Dr Stack 1000SuDottie hodge [place], [id number], [place] tel:[phone] [place] Encounter for follow-up examination after completed treatment for conditions other than malignant neChronic venous hypertension (idiopathic) with other complication s of bilateral lower extremity 4 Miguel ALBERTS RVT, MARY Montez. [address] [place] [address], [facility] [place], [id number], [place]. tel:[phone] Referring Provider: Korina FAJARDO, [address] [place] [address], [facility]. tel:[phone] [facility], [address] [place] [address] Dr Stack 1000[address] 1000Dottie [place], [id number], [place] tel:[phone] CVR [facility] Encounter for follow-up examination after completed treatment for conditions other than malignant neoplasmVari cose veins of left lower extremity with pain 4 Elizabeth Beth. [address], [address], [place], [place], [id number], [place]. tel:[phone] Referring Provider: Korina FAJARDO, [address] [place] [address], [address]. tel:[phone] [facility], [address] [place] [address] [facility] [address]Suite [facility] [place], [id number], [place] tel:[phone] CVR [facility] Varicose veins of left lower extremity with other complication s 4 Miguel ALBERTS RVT, MARY Montez. [address] [place] [address], [place], [id number], [place]. tel:[phone] Referring Provider: Korina FAJARDO, [address] [place] [address], [address]. tel:[phone] [place] [facility], [address] [place] [address] [facility] 1000Suite Dottie Greer [place], [id number], [place] tel:[phone] [facility] No Information 4 Miguel ALBERTS RVT, MARY Montez. [address] [place] [address], [place], [id number], [place]. tel:[phone] [facility], [address] [place] [address] Dr Stack 1000[address] 1000Dottie [place], [id number], [place] tel:[phone] CVR - [facility] Encounter for follow-up examination after completed treatment for conditions other than malignant neoplasmChro savi venous hypertension (idiopathic) with other complication s of right lower extremity 4 Mgiuel ALBERTS RVT, MARY Montez. [address] [place] [address], [place], [id number], [place]. tel:[phone] Referring Provider: Korina FAJARDO, [address] [place] [address], [facility]. tel:[phone] [facility] [place], [address] [place] [address] Dr Stack 1000SuDottie hodge MD, [id number], [place] tel:[phone] CVR - [facility] Varicose veins of right lower extremity with other complication s 4 Miguel ALBERTS RVT, MARY Montez. [address] [place] [address], [facility], [place], [id number], [place]. tel:[phone] Referring Provider: Korina AFJARDO, [address] [place] [address], [facility]. tel:[phone] [facility] [place], [address] [place] [address] Dr Stack 1000Dottie hodge [place], [id number], [place] tel:[phone] CVR [facility] Encounter for follow-up examination after completed treatment for conditions other than malignant neVaricose veins of right lower extremity with pain 4 Miguel ALBERTS RVT, RPVI Robert. [address] [place] [address], [facility], [place], [id number], [place]. tel:[phone] Referring Provider: Korina FAJARDO, [address] [place] [address], [facility]. tel:[phone] [facility], [address] [place] [address] Dr Stack 1000SuDottie hodge [place], [id number], [place] tel:[phone] CVR - [facility] No Information 4 Miguel ALBERTS RVT, MARY Montez. [address] [place] [address], [facility] [place], [place], [id number], [place]. tel:[phone] [facility], [address] [place] [address] Dr Stack 1000SuDottie hodge [place], [id number], [place] tel:[phone] CVR - [facility] Chronic venous hypertension (idiopathic) with inflammation of right lower extremity 4 Miguel ALBERTS RVT, MARY Montez. [address] [place] [address], [place], [place], [id number], . tel:[phone] Referring Provider: Korina FAJARDO, [address] [place] [address], [address]. tel:[phone] Offic/outpt E&m Estab 5 Min Trial- Telemedicine CT & [place] [facility], [address] [place] [address] Dr Stack 1000Suite Dottie Greer [place], [id number], [place] tel:[phone] [place] Localized edemaCramp and spasmRestles s legs syndromeVeno us insufficienc y (chronic) (peripheral) Pruritus, unspecified Feb- 4 Dayo Camarillo. [address] [place] [address], [place], [place], [id number], [place]. tel:[phone] Referring Provider: Korina FAJARDO, [address] [place] [address], [address]. tel:[phone] Office/Oupt E&M New Pt 45 Mins [facility], [address] [place] [address] Dr Stack 1000Suite Dottie Greer [place], [id number], [place] tel:[phone] [place] Varicose veins of bilateral lower extremities with other complication Jarrod in right lower legPain in left lower legPain in right legRestless legs syndromePrur itus, unspecifiedP ain in left legCramp and spasmLocaliz ed edema 4 Miguel ALBERTS, RVT, MARY Montez. [address] [place] [address], [place], [place], [id number], [place]. tel:[phone] Referring Provider: LIS PHILLIPS MD MPH R, [address], [place], [address]. tel:[phone] [facility], [address] [place] [address] Dr Stack 1000SuDottie hodge [place], [id number], [place] tel:[phone] CVR - [facility] Chronic venous hypertension (idiopathic) with other complication s of bilateral lower extremity 4 Miguel ALBERTS, RVT, MARY Montez. [address], [address], [place], [id number], [place]. tel:[phone] Referring Provider: Korina JIANGP, [address] [place], [address]. tel:[phone] Family History Family Member Type Diagnosis Age At Onset No Information Payers Payer name Insurance type Covered green party ID Keniacaitlin gerardobobbi(s) [facility] [id number] Social History Type Description Quantity Date Captured [...]
== END 2024-12-28 14:27 | disposition home or self-care (01) ==
PROVIDERS: PCP Internal Medicine
DX: R07.89 Other chest pain (principal); I48.0 Paroxysmal atrial fibrillation; I50.30 Unspecified diastolic (congestive) heart failure; G47.33 Obstructive sleep apnea (adult) (pediatric); Z09 Encounter for follow-up examination after completed treatment for conditions other than malignant neoplasm
CPT/HCPCS: 93010; 99214

== ENCOUNTER → 2024-12-28 13:44 | Outpatient (BNVA) | payer MEDICARE, SELFPAY | PROVIDERS: PCP Internal Medicine | DX: Z09 Encounter for follow-up examination after completed treatment for conditions other than malignant neoplasm (principal); I50.30 Unspecified diastolic (congestive) heart failure; I48.0 Paroxysmal atrial fibrillation; R07.89 Other chest pain; G47.33 Obstructive sleep apnea (adult) (pediatric); R94.31 Abnormal electrocardiogram [ECG] [EKG]; R00.1 Bradycardia, unspecified; I44.0 Atrioventricular block, first degree | CPT/HCPCS: 93005; 99212 ==

== ENCOUNTER → 2024-12-29 11:26 | Outpatient (BNVA) | payer MEDICARE, SELFPAY | PROVIDERS: PCP Internal Medicine | DX: B02.29 Other postherpetic nervous system involvement (principal) ==

== ENCOUNTER 2024-12-31 08:48 | Outpatient (AMB) | payer MEDICARE, SELFPAY ==
--- NOTE | 2024-12-31 08:43 | MHC.PC.OV ---
Intake Visit Reasons: f/u kong singhgles Intake Note: Pt is having a telehealth visit to f/u francisco re: shingles medication is improving a little but still having pain (mid back and Lt shoulder) Allergies Sulfa (Sulfonamide Antibiotics) [SULFA(SULFONAMIDE ANTIBIOTICS)] Allergy (Unknown, Verified 12/31/24 09:00) RASH codeine Adverse Reaction (Verified 12/31/24 09:00) Vomiting oxycodone Adverse Reaction (Verified 12/31/24 09:00) Gastrointestinal Upset Medication List - Last Reconciled 12/31/24 by Annalee De La Torre MD amiodarone 200 mg PO DAILY ascorbate calcium (vitamin C) 500 mg PO DAILY bumetanide 1 mg (1/2 x 2 mg) PO DAILY cholecalciferol (vitamin D3) 10 mcg PO DAILY gabapentin 300 mg PO Q8H multivitamin 1 tab PO DAILY tramadol 50 mg PO Q8H PRN warfarin See Protocol 2.5 mg X5 DAYS/ 5MG X 2 DAYS ( and ) Tobacco use date assessed: 12/31/24 Fall risk assessment: 1 Fall in past year Last assessed Fall Risk: 12/31/24 Dental Screening Dental Screen Date: 12/31/24 Did you have a dental visit in the last 12 months?: No Did you have a dental problem in the last 6 months where you did not have access to dental care?: No Was dental information given to patient?: Patient has dentist HPI f/u kole singh HPI Details 69 year old lady here today for follow-up after recent ER visit, where she was diagnosed with herpes zoster 12/15/2024. Patient states that the rash is mainly on her left breast radiating to the left upper back. She already has completed Valtrex 1 g 3 times a day for 10 days and wa recently prescribed gabapentin for post herpetic neuralgia, with dose increased to 300 mg every 8 hours.. She was given a prescription for tramadol which she takes every 8 hours as needed for pain. Patient states pain is starting to ease up, but still get worse and wakes her up at night, denies any lightheadedness, but but did notice some dryness in her mouth since starting gabapentin. [facility] Medical History History of kidney stones Dyslipidemia Osteoporosis Impaired fasting glucose Vaccine refused by patient Elevated brain natriuretic peptide (BNP) level Anemia Morbid obesity Iliotibial band syndrome Lumbosacral radiculopathy due to osteoarthritis of spine History of deep vein thrombophlebitis of lower extremity Positive ALVIN (antinuclear antibody) CKD (chronic kidney disease) stage 3, GFR 30-59 ml/min Osteoarthritis of right ankle and foot Postmenopausal Venous insufficiency of both lower extremities Diverticulitis Peripheral vascular complication of surgical procedure Peripheral vascular disease Hyperlipidemia DVT (deep venous thrombosis) Diastolic heart failure Paroxysmal A-fib BERE (obstructive sleep apnea) Surgical History History of lithotripsy History of cardiac cath Hx of vascular surgery H/O hysterectomy for benign disease Family History Father Emphysema, unspecified Mother No problems noted. Brother Atrial fibrillation Sister Atrial fibrillation Sister Breast cancer Social History Household Members: None Housing: House Do you presently have visiting nurse or other home services: No Alcohol intake: never Patient Tobacco Use Status: Never used Tobacco e-Cigarette/Vaping Use: Never Used service: No Current occupational status: retired and disabled Current occupation: rt handed Cognitive needs: No Hearing needs: No Vision needs: Yes Questionnaire PHQ-9 Over the last 2 weeks, how often have you been bothered by any of the following problems? 1. Little interest or pleasure in doing things: not at all 2. Feeling down, depressed, or hopeless: not at all 3. Trouble falling or staying asleep, or sleeping too much: not at all 4. Feeling tired or having little energy: not at all 5. Poor appetite or overeating: not at all 6. Feeling bad about yourself - or that you are a failure or have let yourself or your family down: not at all 7. Trouble concentrating on things, such as reading the newspaper or watching television: not at all 8. Moving or speaking so slowly that other people could have noticed. Or the opposite - being so fidgety or restless that you have been moving around a lot more than usual: not at all 9. Thoughts that you would be better off or of hurting yourself in some way: not at all Total score: 0 Depression Screening Interpretation: Negative Depression Screening Done: Yes 32905 - PHQ-9 Billing: Yes Source: Developed by Drs. Tc Noonan, Janet Hinojosa, Isael Andrews and colleagues, with an educational tha from [employer]. Thrive Questionnaire Date Thrive assessed: 12/31/24 I am a: Patient What is your living situation today?: I have a steady place to live Within the past 12 months, did the food you bought not last and you didn't have the money to get more?: Never true Within the past 12 months, did you worry whether your food would run out before you got money to buy more?: Never true Do you have trouble paying for medicines?: No Do you have trouble getting transportation to medical appointments?: No Do you have trouble paying your heating and electricity bill?: No Do you have trouble taking care of your child, family member or friend?: No Do you have trouble with day-to-day activities such as bathing, preparing meals, shopping, managing finances, etc.?: No Are you currently unemployed and looking for a job?: No Are you interested in more education?: No THRIVE Score: 0 AUDIT C Alcohol Use Questionnaire (AUDIT-C) 1. How often do you have a drink containing alcohol?: Never Total Score: 0 KELLEY-7 AMB Questionnaire KELLEY-7 Date KELLEY - 7 assessed: 12/31/24 Feeling nervous, anxious, or on edge: 0 = Not at all Not being able to stop or control worryin = Not at all Worrying too much about different things: 0 = Not at all Trouble relaxin = Not at all Being so restless that it is hard to sit still: 0 = Not at all Becoming easily annoyed or irritable: 0 = Not at all Feeling afraid as if something awful might happen: 0 = Not at all Total KELLEY-7 score (0-4 normal; 5-9 mild; 10-14 moderate; 15-21 severe): 0 Source: Developed by Drs. Tc Noonan, Janet Hinojosa, Isael Andrews and colleagues, with an educational tha from [employer]. KELLEY-7 Assessment Billing KELLEY-7 Assessment Tool: KELLEY-7 Assessment 08735 Review of Systems Const All systems reviewed & are unremarkable except as noted in HPI and below Physical exam (Primary Care) Tobacco/Smoking Status: Tobacco use Status Tobacco use date assessed 12/31/24 12/31/24 08:45 Patient Tobacco Use Status Never used Tobacco 12/31/24 08:45 e-Cigarette/Vaping Use Never Used 12/31/24 08:45 PHQ-9: PHQ-9 Score PHQ-9: Total score 0 12/31/24 09:07 Depression Screening Interpretation: Negative Thrive Assessment: Date of Thrive Assessment Date Thrive assessed 12/31/24 12/31/24 08:47 Coding Level of Care Code Tele Est Pt Level 3 (95411) Diagnoses Post herpetic neuralgia B02.29 Additional Codes PHQ-9 - 27607 - PHQ-9 Billing: Yes ([id number]) KELLEY-7 Assessment Billing - KELLEY-7 Assessment Tool: KELLEY-7 Assessment 36941 ([id number]) Assessment & Plan Assessment & Plan (1) Post herpetic neuralgia: Code(s): B02.29 - Other postherpetic nervous system involvement Category: Medical Plan: May continue taking tramadol but take it only as needed for pain control, advised to continue with the gabapentin 300 mg per capsule to take 1 capsule in the morning 1 capsule at noon and increase dose to 2 capsules at night. Return to clinic if no improvement of symptoms after a week Medications: Changed From gabapentin 300 mg PO Q8H restless leg syndrome To gabapentin orally every 8 hours; 30 days 120 caps 0RF restless leg syndrome
--- OUTSIDE RECORDS SUMMARY | 2024-12-31 09:09 | XMS_ITS | Clinical Summary ---
Author Organization [facility] Facility Address [address] [address] Care Team Providers Care Plate Worker Name Role Phone Dena Gore MD Primary Care Provider [phone] Allergies Active Allergy Reactions Criticality Noted Date [...] require that she be seen at the [facility] but she should definitely be quarantined since onset of her symptoms Friday for 14 days. Patient works at [employer] and would like a note for work [...] disease of the hips bilaterally, referral to [facility] orthopedics for consultation question management. The Celebrex [...] prior to testing. Until then, can try [id number]-[id number] antihistamine such as generic versions of Margy, [...] age to complete this topic Insurance MEDICARE [facility] MEDICARE [facility] Care Teams Plate Worker Relationship Specialty Start Date End Date Dena Gore MD [address] [place] [address] PCP - General Internal Medicine 03/13/22
--- OUTSIDE RECORDS SUMMARY | 2024-12-31 09:09 | XMS_ITS ---
Author Organization [facility] Address [address] [place] [address] Care Team Providers Care Pillowcase Maker Name Role Phone Wil ALBERTS, Annalee Justice Primary Care Provider Un available Kevin Crowder Unavailable [phone] REASON FOR VISIT comfort plus 9 9 half Encounters Encounter Location Date Provider Diagnosis [facility] [address] [place] [address] 12/07/2024 Kevin Crowder Plan Of Treatment Next Appt Details Provider Name:Kevin Crowder , 03/15/2025 02:45:00 PM, [address] [place], [address], Progress Notes * RENEDonald CASTANOIlaB:1955 (69 yo F)Acc No.[id number]:12/07/2024 Patient:?Davida RUIZ :1955???Age:69 Y???Sex:Female Address:[address] [place] [address], [address] * true * Date:? Generated for Елена linda/Kallie/eTransmitting on:?12/31/2024 09:09 AM EST
--- OUTSIDE RECORDS SUMMARY | 2024-12-31 09:09 | XMS_ITS ---
Author Organization [facility] Clarisa flores [place] Address [address] [facility] [place] [address] Care Team Providers Care Social Worker Delinquency Prevention Name Role Phone Wil ALBERTS, Annalee Justice Primary Care Provider Un available Kevin Crowder Unavailable [phone] Allergies Allergen (clinical drug ingredient) Drug/Non Drug Allergy documented on EMR Reaction Allergy Type Onset Date Status codeine Codeine Unknown Drug Allergy Active Latex Latex Unknown Allergy Active Substance with sulfonamide structure and antibacterial mechanism of action (substance) Sulfa Antibiotics rash Drug Allergy Active REASON FOR VISIT At Risk Footcare, Painful Nail(s) aggrevated by shoes and causing difficulty standing/walking., Foot pain, Ingrown Nail Medications Medication SIG (Take, Route, Frequency, Duration) Notes Start Date End Date Status Warfarin Sodium 2.5 MG 1 tablet Orally O nce a day Active Amiodarone HCl 200 MG 1 tablet Orally On ce a day for 30 days Active Keflex 500 500 MG 1 capsule Orally anushka ry 12 hrs for 10 day(s) 03/21/2021 Not-Taking Warfarin Sodium 5 MG 1 tablet Orally Onc e a day for 30 days Active Spironolactone 25 MG 1 tablet Orally for 30 day(s) Not-Taking Bumetanide 2 MG as directed Orally Active Gabapentin 300 MG 1 capsule Orally Onc e a day for 30 day(s) Active Social History Tobacco Use: Social History Observation Description Date Details (start date - stop date) Never Smoker NA - NA Alcohol Screen Question Answer Notes Did you have a drink containing alcohol in the p ast year? No Points 0 Interpretation Negative Tobacco use other than smoking: Question Answer Notes Are you an other tobacco user? No Tobacco Control (Standard) Question Answer Notes Tobacco use: Nonsmoker Additional Findings: Tobacco non-user Current no nsmoker Problems Problem Type SNOMED Code ICD Code Onset Dates Problem Status W/U Status Risk Notes Problem Atherosclerosis of artery of both lower extremities (I70.203) Active confirmed Q7(A), Q8(2B), Q9(1B,2 C) Problem Osteoarthritis of midtarsal joint of left foot (5705720236008297 ) Osteoarthritis of midtarsal joint of left foot (M19.072) Active confirmed Problem Osteoarthritis of midtarsal joint of right foot (8999455242477236 ) Osteoarthritis of midtarsal joint of right foot (M19.071) Active confirmed Vital Signs Height 5 ft 5 in in 12/07/2024 Weight 232 lbs 12/07/2024 BMI 38.6 kg/m2 12/07/2024 Procedures Procedure Date Ordered Date Performed Result Body Sit e 10313-JRWSCXA NAIL, 1-5 12/07/2024 N/A 05328-Qbkgjhym Plate 12/07/2024 N/A 80189-SUDA SKIN LESIONS, 2 TO 4 12/07/2024 N/A H0969-DCBQHUAY DYSTROPHIC NAILS ANY # 12/07/2024 N/A Encounters Encounter Location Date Provider Diagnosis [facility] [address] [place] [address] 12/07/2024 Kevin Crowder Atherosclerosis of artery of both lower extremities I70.203 ; Tinea unguium B35.1 ; Pain in right toe(s) M79.674 ; Pain in left toe(s) M79.675 ; Pain in left foot M79.672 ; Pain in left ankle and joints of left foot M25.572 ; Bursitis of left foot M77.52 ; 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 ; Pain in right foot M79.671 ; Pain in right ankle and joints of right foot M25.571 ; Bursitis of right foot M77.51 ; Osteoarthritis of midtarsal joint of right foot M19.071 and Ingrown nail L60.0 Assessments Encounter Date Diagnosis (ICD Code) Assessment Notes Treatment Notes Treatment Clinical Notes Section Notes 12/07/2024 Atherosclerosis of artery of both lower extremities (ICD-10 - I70.203) Q7(A), Q8(2B), Q9(1B,2C) 12/07/2024 Tinea unguium (ICD-10 - B35.1) 12/07/2024 Pain in right toe(s) (ICD-10 - M79.674) 12/07/2024 Pain in left toe(s) (ICD-10 - M79.675) 12/07/2024 Pain in left foot (ICD-10 - M79.672) 12/07/2024 Pain in left ankle and joints of left foot (ICD-10 - M25.572) 12/07/2024 Bursitis of left foot (ICD-10 - M77.52) 12/07/2024 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 - M19.072) 12/07/2024 Pain in right foot (ICD-10 - M79.671) 12/07/2024 Pain in right ankle and joints of right foot (ICD-10 - M25.571) 12/07/2024 Bursitis of right foot (ICD-10 - M77.51) 12/07/2024 Osteoarthritis of midtarsal joint of right foot (ICD-10 - M19.071) 12/07/2024 Ingrown nail (ICD-10 - L60.0) Plan Of Treatment Pending Test Test Name Order Date X ray : Foot, left 3V 12/07/2024 X ray : Foot, right 3V 12/07/2024 16601-XGIMTMF NAIL, 1-5 12/07/2024 63062-Lvsgpcvx Plate 12/07/2024 12486-GKRP SKIN LESIONS, 2 TO 4 12/07/19 25 V5393-HFPTSMGS DYSTROPHIC NAILS ANY # Next Appt Details Follow Up: prn, Reason: Provider Name:Kevin Crowder , 03/15/2025 02:45:00 PM, [address] [place], [address], Procedure Notes * Category Sub-Category Detail Notes Nail Avulsion Procedure A fine sterile e levator was placed between the eponychium, nail fold, and nail plate to separate the structures. A sterile nail splitter, and/or sterile 316 blade, was then used to longitudinally section the nail along its entire length through the eponychium to the area under the nail fold. The offending portion of nail was from the nail bed with a rolling action and then removed with a hemostat. No underlying bone was identified. There was minimal bleeding as hemostasis was achieved through the temporary use of either a digital tourniquet or the aforementioned local with epinephrine. A bacitracin sterile dressing was applied. Local wound aftercare instructions were discussed and dispensed. The patient was informed of both conservative and future surgical procedures to prevent recurrence. Tylenol or Motrin was recommended for pain or discomfort (58874), CIRCULATION: Pt was advised as to the risk of delayed or nonhealing due to circulation. Pt is to call the office with any questions, concerns, or complications Anesthesia 2cc of 1 percent Lid ocaine Plain local anesthesic utilizing aseptic technique Location Lateral nail border, TA Keratoma Treatment Parring or Cutting o f Benign Hyperkeratotic Lesion(s) (-56) 2-4 Lesions - Due to the at risk nature of the patients medical condition as documented in the exam findings, performance of this keratoderma treatment is medically necessary as its management by an unskilled/untrained nonprofessional would put this patients foot and overall health at risk. Therefore, the benign hyperkeratotic lesions, ( 4) in total, locations as stated and described in the exam ( SUB MTH (s), 3, Left, SUB MTH (s), 4, Left, Plantar Heel(s), B/L), were pared, and/or cut utilizing a sterile 15 blade, tissue nippers, and/or power dremel instrumentation by the physician of record - 10218, Q8 Debride Nails 1-5 Procedure: Due to the cli nical pathology outlined in the exam findings, performance of this nail treatment is medically necessary as its management by an unskilled/untrained nonprofessional would put this patients foot and overall health at risk. Therefore, debridement to affected nail(s), as described in exam ( TA,T4,T5, T9), was performed exclusively by the physician of record to reduce/remove overall nail length, girth, thickness, subungual debris, and necrotic tissue, by manual and/or electrical means through the use of a nail nipper and/or dremel stylegrinder, to a more viable healthy nail plate or bed tissue 5 nails or fewer in number. Silver nitrate was used for any petechial bleeding as necessary. Definitive antifungal treatment options, both pharmaceutical and surgical, have been reviewed and discussed with the patient. The patient solely prefers the use of intermittent/as needed professional debridement services for their nail condition and understands that additional periodic treatments may be required as necessary to maintain effective symptomatic relief - 57930 Nail Reduction Nail Reduction (-27) Trimming o f all dystrophic nails - Due to the at risk nature of the patients medical condition as documented in the exam findings, performance of this nail treatment is medically necessary as its management by an unskilled/untrained nonprofessional would put this patients foot and overall health at risk. Therefore, the dystrophic nails, in locations as stated and described in the exam ( T1, T2, T3, T6, T7, T8 ), were debrided by the phisician of record to reduce/remove overall nail length and girth, by manual and electrical means with use of a nail nipper and/or dremel, to more viable healthy nail plate or bed tissue - G0127, Q8 Progress Notes * RENELUIS LoanB:1955 (69 yo F)Acc No.[id number]:12/07/2024 Progress Notes Patient:?Davida DOWNEY Provider:?Kevin Crowder DPM :1955???Age:69 Y???Sex:Female D ate:12/07/2024 Address:[address] [place] [address] Pcp:Zachery Giordano Subjective: * Chief Complaints: * ???At Risk FootcarePainful N ail(s) aggrevated by shoes and causing difficulty standing/walking.Foot painIngrown Nail * HPI: ???At Risk footcare:?Pt States Last PCP Visit:?Date?11/02/2024 ???Foot Pain:?Nature:?aching , stiffness , swelling , throbbing.?Location:?Top , Midfoot, B/L.?Duration:?several months.?Course:?worse.?Treatments:?rest/alter normal daily activity.? * ROS:?General/Constitutional:?Nausea?denies.?Vomiting?denies.?Hunger Thirst?denies.?Loss appetite?denies.?Chills?denies.?Fatigue?denies.?Fever?denies.?Night Sweats?denies.?Unexplained weight loss?denies.?Unexplained weight gain?denies.?HEENTM:?Dentures?denies.?Dizziness?denies.?Glasses/contacts?denies.?Retinopathy?de nies.?Blurred/double vision?denies.?TMJ?denies.?Discharge/drainage?denies.?Implants?denies.?Sore throat?denies.?Dental implants?denies.?Hard of hearing ?denies.?Difficulty chewing/swallowing/speaking?denies.?Nose bleeds?denies.?Sore mouth?denies.?Respiratory:?On Oxygen?denies.?Pneumonia/pleurisy?denies.?Bronchitis?denies.?Emphysema?denies.?C oughing?denies.?Cough blood?denies.?Shortness of breath?denies.?Wheezing?denies.?Cardiovascular:?Pacemaker?denies.?MVP?denies.?WPW?denies.?CHF?denies.?Heart attack?denies.?Septal defect?denies.?Rapid beat?denies.?Chest pain ?denies.?Atrial Fib.?admits.?Murmur/Palpitations?denies.?Gastrointestinal:?Hemorrhoids?denies.?Stomach/Abdominal pain?denies.?Dark blood stool?denies.?Irritable bowel ?denies.?Constipation?denies.?Diarrhea?denies.?Hematology:?Swelling?admits.?Clots?Admits.?Varicose Veins?admits.?Bruising?admits.?Bleeding problem?denies.?Genitourinary:?Blood urine?denies.?Frequent/Painfu/urination/bladder control?denies.?Kidney stones?admits.?Infection (UTI)?denies.?Nephropathy?denies.?sex trans dis (STD)?denies.?Prostate?denies.?Musculoskeletal:?Hammertoes?admits.?Bunions?admits.?Back Pain?admits.?Muscle Cramps/ Resting?denies.?Muscle cramps / walking?denies.?Generalized aches and pains?admits.?Weakness?denies.?Integ.:?Mccormick?denies.?Scars?denies.?Corns/calluses?admits.?Ingrown nails?admits.?Painful nails?admits.?Open Sores?denies.?Rashes?denies.?Neurologic:?Difficulty sleeping?denies.?Brain disorder?denies.?Numbness?denies.?Balance trouble?admits.?Confusion?denies.?Fainting/blackouts?denies.?Tingling?denies.?Tr emors?denies.? * Medical History:? * Surgical History:?hysterecto my 02/2000cardiac catheterization 2020 * Hospitalization/Major Diagno stic Procedure:?C -AFib/ Kidney Failure 08/2020 * Family History:?Mother: dece ased, poor circulation, diagnosed with Unspecified cerebral artery occlusion with cerebral infarction, Unspecified essential hypertension.?Father: , diagnosed with Other malignant neoplasm of unspecified site.?Maternal Grand Mother: poor circulation.?Paternal Grand Father: diagnosed with Unspecified heart disease.?Maternal aunt: diagnosed with Diabetic - NIDDM.?Maternal uncle: diagnosed with Other malignant neoplasm of unspecified site.? * Social History:?Tobacco Use:?Tobacco use other than smoking?Are you an other tobacco user??No ?Tobacco Control (Standard)?Tobacco use:?Nonsmoker ?Additional Findings: Tobacco non-user?Current nonsmoker ???Drugs/Alcohol:?Drugs?Have you used drugs other than those for medical reasons in the past 12 months??No ?Alcohol Screen?Did you have a drink containing alcohol in the past year??No ?Points?0 ?Interpretation?Negative ???Miscellaneous:?Caffeine: no. ?Children: yes, 3. ?Marital status: . * Medications:?TakingWarfarin Sodium 2.5 MG Tablet 1 tablet Orally Once a day Amiodarone HCl 200 MG Tablet 1 tablet Orally Once a day Bumetanide 2 MG Tablet as directed Orally Gabapentin 300 MG Capsule 1 capsule Orally Once a day Warfarin Sodium 5 MG Tablet 1 tablet Orally Once a day Taking Warfarin Sodium 2.5 MG Tablet 1 tablet Orally Once a day Taking Amiodarone HCl 200 MG Tablet 1 tablet Orally Once a day Taking Bumetanide 2 MG Tablet as directed Orally Taking Gabapentin 300 MG Capsule 1 capsule Orally Once a day Taking Warfarin Sodium 5 MG Tablet 1 tablet Orally Once a day Not-Taking/PRNSpironolactone 25 MG Tablet 1 tablet Orally Keflex 500 500 MG Capsule 1 capsule Orally every 12 hrs Medication List reviewed and reconciled with the patientNot-Taking/PRN Spironolactone 25 MG Tablet 1 tablet Orally Not- Taking/PRN Keflex 500 500 MG Capsule 1 capsule Orally every 12 hrs Medication List reviewed and reconciled with the patient * Allergies:?Sulfa Antibiotics : rashCodeineLatexyes[Allergies Verified] Objective: * Vitals:?Ht:5 ft 5 in, Wt:232 , BMI:38.6, Shoe size:10.5 W, Ht-cm: 165.1 cm, Wt- k.23 kg. * Examination: ???Vascular: ?DP PULSES (B):?11/27, B/L.?PT PULSES (B):?0/4, B/L.?CAPILLARY FILL TIME:?delayed, all digits, B/L.?TROPHIC CONDITION-TEXTURE/ELASTICITY/TURGOR/HAIR GROWTH (B):?decreased, fragile, thin, shiny skin, with sparse to absent hair growth, B/L.?TEMPERTURE GRADIENT (C):?decreased, cool to cool, proximal to distal, B/L.?PIGMENTATION:?mottled, B/L.?EDEMA (C):?2/4, non-pitting, without aching pain, Leg(s), Ankle(s), Foot, B/L.?CLAUDICATION (C):?denies, B/L.?REST PAIN:?denies, B/L.?PARESTHESIA (C):?absent, B/L.?BURNING (C):?absent, B/L.?VARICOSITIES:?present, moderate, nonpainful, B/L.?Nails: ?NAILS are:?Elongated, overgrown, dystrophic, lytic, greater than 3mm thick, discolored and friable with crumbly malodorous subungual debris, with pain on palpation, ( TA,T4,T5, T9?), all other nails not described with characteristics as possessing mycosis are elongated, overgrown, and dystrophic ( ?T1, T2, T3, T6, T7, T8?).?Ingrown Nail: ?INSPECTION:?Reveals nail incurvation, pain on palpation, groove hypertrophy, Lateral nail border, TA.?Dermatologic: ?SKIN FINDINGS:?Skin exam reveals Keratotic lesion(s) located at, SUB MTH (s), 3, Left, SUB MTH (s), 4, Left, Plantar Heel(s), B/L.?Neurological: ?SENSORY:?Neurological exam reveals intact sensorium, pain sensation normal, vibration sensation intact, pinprick sensation is normal in the lower extremities, Pt denies, anesthesia, burning, paresthesia, tingling, B/L.?TINEL'S COMPRESSION:? Negative, Medial dorsal cutaneous nerve distribution, Intermediate dorsal cutaneous nerve distribution, Deep peroneal nerve distribution, B/L.?Orthopedic: ?MUSCLE STRENGTH:?5/5 all groups in a symmetrical fashion, B/L.?GAIT ABNORMALITY:?apropulsive, unstable/unsteady relating occasional difficulty with balance, cane-assisted.?FOOT MORPHOLOGY:?Pes Planus structure, Prominent, painful 1st Met- Cuneiform joint with inflammation, B/L.?FOOTWEAR:?shoe gear properties exacerbate patients foot/toe deformity.?X-Rays - IMAGING REPORT: ?Clinical Indication(s):? Evaluate for Fracture, Evaluate Biomechanical Deformity.?Views:?3 views of Foot, AP, LAT, LO, B/L??Taken by trained?Podiatric Shift Boss (?__ ).?Findings:?normal bone and soft tissue density consistent for patients age and sex, eburnation dorsal 1st MT/Cun. jt, dorsal degenerative changes of the tarsal joints.?Fracture:?Negative fractures identified.?General Examination: ?GENERAL APPEARANCE:?Reveals a pleasant, alert, well nourished, well- developed, well hydrated individual, who demonstrates proper attention to hygiene/body habitus, and is in no acute distress, Pt serves as own historian for office visit today.?ORIENTED:?person, place, and time.? Assessment: * Assessment: 1.?Tinea unguium - B35.1???2 .?Atherosclerosis of artery of both lower extremities - I70.203 (Primary)???Notes :Q7(A), Q8(2B), Q9(1B,2C)???3.?Pain in right toe(s) - M79.674???4.?Pain in left toe(s) - M79.675???5.?Pain in left foot - M79.672???6.?Pain in left ankle and joints of left foot - M25.572???7.?Bursitis of left foot - M77.52???8.?Osteoarthritis of midtarsal joint of left foot - M19.072???Specify :Acute problem, Complicated w/ Multiple Tx Options(4)???9.?Pain in right foot - M79.671???10.?Pain in right ankle and joints of right foot - M25.571???11.?Bursitis of right foot - M77.51? ?12.?Osteoarthritis of midtarsal joint of right foot - M19.071???Specify :Acute problem, Complicated w/ Multiple Tx Options(4)???13.?Ingrown nail - L60.0???Specify :Lateral nail border,?TA??? Plan: * Treatment: 2.?Tinea unguium?Procedure: 15431-LKEBKYP NAIL, 1-5 3.?Pain in left foot?Imaging: X ray : Foot, left 3V 4.?Pain in right foot?Imaging: X ray : Foot, right 3V 5.?Ingrown nail?Procedure: 16100-Wzgszdgw Plate * Procedures:?Debride Nails 1-5:?Procedure:?Due to the clinical pathology outlined in the exam findings, performance of this nail treatment is medically necessary as its management by an unskilled/untrained nonprofessional would put this patients foot and overall health at risk. Therefore, debridement to affected nail(s), as described in exam (?TA,T4,T5,?T9), was performed exclusively by the physician of record to reduce/remove overall nail length, girth, thickness, subungual debris, and necrotic tissue, by manual and/or electrical means through the use of a nail nipper and/or dremel stylegrinder, to a more viable healthy nail plate or bed tissue 5 nails or fewer in number. Silver nitrate was used for any petechial bleeding as necessary. Definitive antifungal treatment options, both pharmaceutical and surgical, have been reviewed and discussed with the patient. The patient solely prefers the use of intermittent/as needed professional debridement services for their nail condition and understands that additional periodic treatments may be required as necessary to maintain effective symptomatic relief - 36290.?Keratoma Treatment:?Parring or Cutting of Benign Hyperkeratotic Lesion(s)?(-56) 2-4 Lesions - Due to the at risk nature of the patients medical condition as documented in the exam findings, performance of this keratoderma treatment is medically necessary as its management by an unskilled/untrained nonprofessional would put this patients foot and overall health at risk. Therefore, the benign hyperkeratotic lesions, ( 4) in total, locations as stated and described in the exam (?SUB MTH (s),?3,?Left,?SUB MTH (s),?4,?Left,?Plantar Heel(s),?B/L), were pared, and/or cut utilizing a sterile 15 blade, tissue nippers, and/or power dremel instrumentation by the physician of record - 92809, Q8.?Nail Avulsion:?Location?Lateral nail border,?TA.?Anesthesia?2cc of 1 percent Lidocaine Plain local anesthesic utilizing aseptic technique.?Procedure?A fine sterile elevator was placed between the eponychium, nail fold, and nail plate to separate the structures. A sterile nail splitter, and/or sterile 316 blade, was then used to longitudinally section the nail along its entire length through the eponychium to the area under the nail fold. The offending portion of nail was from the nail bed with a rolling action and then removed with a hemostat. No underlying bone was identified. There was minimal bleeding as hemostasis was achieved through the temporary use of either a digital tourniquet or the aforementioned local with epinephrine. A bacitracin sterile dressing was applied. Local wound aftercare instructions were discussed and dispensed. The patient was informed of both conservative and future surgical procedures to prevent recurrence. Maria Cenol or Motrin was recommended for pain or discomfort (97901), CIRCULATION: Pt was advised as to the risk of delayed or nonhealing due to circulation. Pt is to call the office with any questions, concerns, or complications.?Nail Reduction:?Nail Reduction?(-27) Trimming of all dystrophic nails - Due to the at risk nature of the patients medical condition as documented in the exam findings, performance of this nail treatment is medically necessary as its management by an unskilled/untrained nonprofessional would put this patients foot and overall health at risk. Therefore, the dystrophic nails, in locations as stated and described in the exam (?T1, T2, T3, T6, T7, T8?), were debrided by the phisician of record to reduce/remove overall nail length and girth, by manual and electrical means with use of a nail nipper and/or dremel, to more viable healthy nail plate or bed tissue - G0127, Q8.? * Procedure Codes:?G0127 MARCELO ING DYSTROPHIC NAILS ANY #, Modifiers: XS , [id number] Avulsion Plate, Modifiers: XS , [id number] X-RAY EXAM OF LEFT FOOT 3V, Modifiers: 26 , [id number] X-RAY EXAM OF RIGHT FOOT 3V, Modifiers: 26 , [id number] DEBRIDE NAIL, 1-5, Modifiers: XS 13241 TRIM SKIN LESIONS, 2 TO 4, Modifiers: XS , Q8 * Preventive Medicine:? ??Counseling:?Discussion:?-04: Office or other outpatient visit for the evaluation and management of a new patient, which required a medically appropriate history and/or examination and MODERATE level of DECISION MAKING for: 1 OR MORE CHRONIC PROBLEM(S) THATS WORSENING, 2 STABLE CHRONIC PROBLEMS, A NEWLY DIAGNOSED PROBLEM WITH UNCERTAIN PROGNOSIS, AN ACUTE COMPLICATED INJURY WITH MULTIPLE TREATMENT OPTIONS, OR AN ACUTE PROBLEM WITH ACCOMPANYING SYSTEMIC SYMPTOMS, THAT POSE(S) A MODERATE RISK OF MORBIDITY. THIS CONDITION MAY ALSO INCLUDE RX DRUG MANAGEMENT, OR A DECISON FOR MINOR SURGERY. The visit on the day of the encounter encompassed interpreting the data and educating the patient as to the nature of their condition, treatment options available according to their individual PMH, meds, allergies, and overall health/living conditions, as well as any potential risks or complications that may occur from a failure to adhere to, and participate in, the recommended course of therapy. The discussion included a complete verbal, and/or written explanation of the examination results, any x-rays taken, the proposed diagnosis, and outline of the treatment plan. A schedule for future care needs was also explained. The patient verbalized an understanding of the instructions at this time and agreed to be an active participant in their treatment. If the patient should think of any questions or concerns after the visit, I have encouraged the patient to call the office.?Arthritis:?The patient was counseled on the various etiologies for their Arthritis including genetic, history of injury or trauma, abnormal foot biomechanics leading to excessive joint wear, and use/overuse. We discussed the various treatment options from no treatment, to topical analgesics such as Biofreeze gel, Aspercream, Voltaren gel, Lidoderm patches, CBD oils, THC creams, and Custom-compounded topical cream preparations to natural oral products such as Glucosamine Sulfate/Chondroitin/MSM/Collegen to analgesic Tylenol, to anti-inflammatory medications such as Ibuprofen/Naproxen, and the use of oral steroids if needed. Cardiac, Kidney, and GI issues were discussed RE: potential complications of oral anti-inflammatories. We discussed several other treatment options consisting of accom shoes, supportive innersoles, AFO bracing/support, cortisone injection therapy, and surgical resection of the arthritic joint(s) or fusion reconstruction if necessary. We discussed the advantages and disadvantages of conservative (vs) surgical treamtents including pain relief, improved function/activities of daily life, return to exercise to failure, expense, systemic complications, infection, [id number], prolongued postop course. Patient questions re: the various treatment options available, their successes and potential failures, and manager long term care effects were discussed and the answers were verbally confirmed understood.?Orthotics:?I explained to the patient the benefits of OT use. I explained that orthoses are medically necessary to decrease the foot pain through proper mechanical control, support of their foot, Prefabricated orthoses ( Comfort Plus ( C ), ), were dispensed. The inserts were comfortably fit to the patients feet in both weight-bearing and non-weight bearing attitudes. The patient was instructed to increase the amount of time they were wearing the inserts, starting with one hour the first day and gradually increasing the amount of time worn until they are using them assistant drafter and in all activities. They were asked to call the office if any signs of irritation were noted such as redness, blistering or callous formation. Instuctions were given for their usage and proper break-in/wear/care. Pt expressed comfort with and tolerance to inserts dispensed.?P.R.I.C.E.:?The patient was counseled on the use of P.R.I.C.E. and NSAIDS (if well tolerated) to aid in the recovery from their painful condition.?Podiatric Surgery Counseling:?Surgical procedures to treat the patients foot problem were discussed. We reviewed the risks of the procedure (described below) vs not having the procedure (persistent pain, deformity, risk for skin ulceration/infection, loss of toe). We discussed the potential procedure complications including, but not limited to: pain, swelling, bleeding, scarring, numbness, infection, delayed/non healing, floppy/unstable/shorthened toe, recurrence, failure of the procedure, overcorrection leading to plantarflexed/downward positioned toe, recurrence, need for further surgery, as well as the possibility for loss of the toe itself. We discussed the use of IV/Local anesthesia, and the usual post-op course for healing. No guarentees were given. The patient verbally indicated a full understanding of the above conversation, and any other of their questions were answered to their satisfaction.?Shoe Gear Counseling:?The patient and I reviewed the types of shoes they should be wearing. My recommendation included obtaining a well-fitted shoe with a good supportive, non-foldable nor twistable sole, plenty of toe/room for the forefoot, and proper arch support. Based on todays examination, I recommended the patient look for new shoes, by having their feet professionally measured. We discussed that generally the best time of the day for a shoe fitting is the afternoon. Different shoes types and brands to best match the patients occupation and vocation were discussed. Specific brand selection will be up to the patient, their individual foot condition/deformities, and fit. The patient and I reviewed the standard new shoe break in period by wearing them for a few hours a day while checking for redness or sores as wear time is increased. The patient verbally confirmed to understanding the information discussed.? ??Screening/Special Tests:?Fall Risk?Assessment:?Performed ?Plan of Care:?Documented ?Type of fall plan of care:?Balance, strength and gait training or instruction provided ?Screening:?One fall with injury in the past year ?FALLS: Screening for Future Fall Risk?Have you had two or more falls in the past year??No ?Have you had any falls with injury in the past year??Yes * Follow Up:?prn * Images: * Sign off status: Completed true * Provider:?Kevin Crowder DPM Date:?2024 Generated for Елена linda/Kallie/Kaushalitting on:?12/31/2024 09:08 AM EST History and Physical Notes * HPI (History of Present Illness) Category Sub-Category Detail Notes Category Not es At Risk footcare Pt States Last PCP Visit: Date: 4 Foot Pain Nature: aching , stiffne ss , swelling , throbbing Location: Top , Midfoot, B/L Duration: several months Course: worse Treatments: rest/alter normal da samira activity Examination Category Sub-Category Detail Notes Category Not es Ingrown Nail INSPECTION: Reveals nail inc urvation, pain on palpation, groove hypertrophy, Lateral nail border, TA Neurological SENSORY: Neurological exa m reveals intact sensorium, pain sensation normal, vibration sensation intact, pinprick sensation is normal in the lower extremities, Pt denies, anesthesia, burning, paresthesia, tingling, B/L TINEL'S COMPRESSION: Negative, Medial do rsal cutaneous nerve distribution, Intermediate dorsal cutaneous nerve distribution, Deep peroneal nerve distribution, B/L Dermatologic SKIN FINDINGS: Skin exam reveal s Keratotic lesion(s) located at, SUB MTH (s), 3, Left, SUB MTH (s), 4, Left, Plantar Heel(s), B/L Orthopedic GAIT ABNORMALITY: apropulsive, u nstable/unsteady relating occasional difficulty with balance, cane-assisted FOOT MORPHOLOGY: Pes Planus structure , Prominent, painful 1st Met-Cuneiform joint with inflammation, B/L FOOTWEAR: shoe gear properties exacerbate patients foot/toe deformity MUSCLE STRENGTH: 5/5 all groups in a symmetrical fashion, B/L General Examination GENERAL APPEARANCE: Reveals a pleasant, alert, well nourished, well-developed, well hydrated individual, who demonstrates proper attention to hygiene/body habitus, and is in no acute distress, Pt serves as own historian for office visit today ORIENTED: person, place, and t fatimah Vascular DP PULSES (B): 1/4, B/L PT PULSES (B): 0/4, B/L CAPILLARY FILL TIME: delayed, all digits , B/L TEMPERTURE GRADIENT (C): decreased, cool to cool, proximal to distal, B/L TROPHIC CONDITION-TEXTURE/ELASTICITY/TURGOR/HAIR GROWTH (B): decreased, fragile, thin, shiny skin, wi th sparse to absent hair growth, B/L EDEMA (C): 2/4, non-pitting, wi thout aching pain, Leg(s), Ankle(s), Foot, B/L VARICOSITIES: present, moderate, n onpainful, B/L CLAUDICATION (C): denies, B/L REST PAIN: denies, B/L PIGMENTATION: mottled, B/L PARESTHESIA (C): absent, B/L BURNING (C): absent, B/L Nails NAILS are: Elongated, overg rown, dystrophic, lytic, greater than 3mm thick, discolored and friable with crumbly malodorous subungual debris, with pain on palpation, ( TA,T4,T5, T9 ), all other nails not described with characteristics as possessing mycosis are elongated, overgrown, and dystrophic ( T1, T2, T3, T6, T7, T8 ) X-Rays - IMAGING REPORT Findings: normal b one and soft tissue density consistent for patients age and sex, eburnation dorsal 1st MT/Cun. jt, dorsal degenerative changes of the tarsal joints Fracture: Negative fractures i dentified Views: 3 views of Foot, AP, LAT, LO, B/L Taken by trained Podiatric Shift Boss ( __ ) Clinical Indication(s): Evaluate for Fra cture, Evaluate Biomechanical Deformity
--- OUTSIDE RECORDS SUMMARY | 2024-12-31 09:09 | XMS_ITS ---
Author Organization [facility] Address [address] [place] [address] Care Team Providers Care Oracle Business Analyst Name Role Phone Wil ALBRETS, Annalee Justice Primary Care Provider Un available Kevin Crowder Unavailable [phone] Isabelle Schmid [phone] REASON FOR VISIT sooner appt Encounters Encounter Location Date Provider Diagnosis [facility] [address] [place] [address] 12/16/2024 Isabelle Schmid Plan Of Treatment Next Appt Details Provider Name:Kevin Crowder , 03/15/2025 02:45:00 PM, [address] [place] [address], [address], Progress Notes * Donald RUIZaDOB:1955 (69 yo F)Acc No.[id number]:12/16/2024 Progress Notes Patient:?Davida RUIZ Provider:?Isabelle Schmid DPM :1955???Age:69 Y???Sex:Female D ate:12/16/2024 Address:[address] [place], [place] [id number] Pcp:Zachery Giordano Subjective: * Chief Complaints: * ???1. Sooner appt. * Medical History:? Objective: * Vitals:? Assessment: Plan: * Treatment: * Images: * The named appointment provid er may or may not be the originator of this progress note, and it is not deemed complete until electronically signed by the appointment provider. Sign off status: Pending * Provider:?Isabelle Schmid DPM Date:?0 12/16/2024 Generated for Елена linda/Kallie/Juancarlos on:?12/31/2024 09:09 AM EST
--- OUTSIDE RECORDS SUMMARY | 2024-12-31 09:09 | XMS_ITS | Continuity of Care Document ---
Author Organization [facility] Address [address] [place] [address] Phone Care Team Providers Care Insurance Consultant Name Role Phone Miguel ALBERTS, RVT, RPVI, [...] Encounter [facility] [place], [address] [place] [address] [address], [place], [id number], [place] tel:[phone] [place] No Information 4 Miguel ALBERTS RVT, MARY Montez. [address] [place] [address], [place], [id number], [place]. tel:[phone] [facility] [place], [address] [place] [address] [address], [id number], [place] tel:[phone] [place] Varicose veins of left lower extremity with other complication s 4 Anjelica Reeder. [address] [place] [address], [facility] [place], [id number], [place]. tel:[phone] Referring Provider: Korina FAJARDO, [address] [place] [address], [address]. tel:[phone] [facility], [address] [place] [address] [address], [place], [id number], [place] tel:[phone] [place] Encounter for follow-up examination after completed treatment for conditions other than malignant nePain in left leg 4 Miguel ALBERTS RVT, MARY Montez. [address] [place] [address], [place], [id number], [place]. tel:[phone] Referring Provider: Korina FAJARDO, [facility] [place], [address]. tel:[phone] [facility], [address] [place] [address] [address] 1000[place]ie [place], [id number], [place] tel:[phone] [place] Varicose veins of left lower extremity with other complication s 4 Miguel ALBERTS RVT, MARY Montez. [address] [place] [address], [place], [place], [id number], [place]. tel:[phone] Referring Provider: Korina FAJARDO, [address] [place] [address], [facility]. tel:[phone] Office/Outpt E&M Established 15 Mins- [place] & [place] [facility], [address] [place] [address] Dr [address]Suite [place], [id number], [place] tel:[phone] [place] Pruritus, unspecifiedV aricose veins of left lower extremity with other complication sLocalized edemaCramp and spasmRestles s legs syndrome 4 Miguel ALBERTS RVT, MARY Montez. [address] [place] [address], [facility] [place], [id number], [place]. tel:[phone] Referring Provider: Korina FAJARDO, [address] [place] [address], [facility]. tel:[phone] [facility], [address] [place] [address] Dr [address] 1000SuDottie hodge [place], [id number], [place] tel:[phone] [place] Encounter for follow-up examination after completed treatment for conditions other than malignant neChronic venous hypertension (idiopathic) with other complication s of bilateral lower extremity 4 Miguel ALBERTS RVT, MARY Montez. [address] [place] [address], [facility], [id number], [place]. tel:[phone] Referring Provider: Korina FAJARDO, [address] [place] [address], [facility]. tel:[phone] [facility], [address] [place] [address] [address] 1000Dottie [place], [id number], [place] tel:[phone] CVR [facility] Encounter for follow-up examination after completed treatment for conditions other than malignant neoplasmVari cose veins of left lower extremity with pain 4 Elizabeth Beth. [address], [address], [place], [place], [id number], [place]. tel:[phone] Referring Provider: Korina FAJARDO, [address] [place] [address], [address]. tel:[phone] [facility], [address] [place] [address] [facility] [address] [facility] Hospital[facility] [place], [id number], [place] tel:[phone] CVR [facility] Varicose veins of left lower extremity with other complication s 4 Miguel ALBERTS RVT, MARY Montez. [address] [place] [address], [place], [id number], [place]. tel:[phone] Referring Provider: Korina FAJARDO, [address] [place] [address], [address]. tel:[phone] [facility], [address] [place] [address] [facility] [address]Suite Dottie Greer [place], [id number], [place] tel:[phone] [facility] No Information 4 Miguel ALBERTS RVT, MARY Montez. [address] [place] [address], [place], [id number], [place]. tel:[phone] [facility], [address] [place] [address] [address] 1000Dottie [place], [id number], [place] tel:[phone] CVR - [facility] Encounter for follow-up examination after completed treatment for conditions other than malignant neoplasmChro savi venous hypertension (idiopathic) with other complication s of right lower extremity 4 Miguel ALBERTS RVT, MARY Montez. [address] [place] [address], [place], [id number], [place]. tel:[phone] Referring Provider: Korina FAJARDO, [address] [place] [address], [facility]. tel:[phone] [facility] [place], [address] [place] [address] Dr [address] 1000SuDottie hodge [place], [id number], [place] tel:[phone] CVR - [facility] Varicose veins of right lower extremity with other complication s 4 Miguel ALBERTS RVT, MARY Montez. [address] [place] [address], [facility], [place], [id number], [place]. tel:[phone] Referring Provider: Korina FAJARDO, [address] [place] [address], [facility]. tel:[phone] [facility] [place], [address] [place] [address] Dr [address] 1000Dottie hodge [place], [id number], [place] tel:[phone] CVR [facility] Encounter for follow-up examination after completed treatment for conditions other than malignant neVaricose veins of right lower extremity with pain 4 Miguel ALBERTS RVT, RPVI Robert. [address] [place] [address], [facility], [place], [id number], [place]. tel:[phone] Referring Provider: Korina FAJARDO, [address] [place] [address], [facility]. tel:[phone] [facility], [address] [place] [address] Dr [address] 1000SuDottie hodge [place], [id number], [place] tel:[phone] CVR - [facility] No Information 4 Miguel ALBERTS RVT, MARY Montez. [address] [place] [address], [facility] [place], [id number], [place]. tel:[phone] [facility], [address] [place] [address] Dr [address] 1000SuDottie hodge [place], [id number], [place] tel:[phone] CVR - [facility] Chronic venous hypertension (idiopathic) with inflammation of right lower extremity 4 iMguel ALBERTS RVT, MARY Montez. [address] [place] [address], [place], [place], [id number], . tel:[phone] Referring Provider: Korina FAJARDO, [address] [place] [address], [address]. tel:[phone] Offic/outpt E&m Estab 5 Min Trial- Telemedicine [place] & [place] [facility], [address] [place] [address] Dr [address]Suite Dottie Greer [place], [id number], [place] tel:[phone] [place] Localized edemaCramp and spasmRestles s legs syndromeVeno us insufficienc y (chronic) (peripheral) Pruritus, unspecified Feb- 4 Dayo Camarillo. [address] [place] [address], [place], [place], [id number], [place]. tel:[phone] Referring Provider: Korina FAJARDO, [address] [place] [address], [address]. tel:[phone] Office/Oupt E&M New Pt 45 Mins [facility], [address] [place] [address] Dr [address]Suite Dottie Greer [place], [id number], [place] tel:[phone] [place] Varicose veins of bilateral lower extremities with other complication Jarrod in right lower legPain in left lower legPain in right legRestless legs syndromePrur itus, unspecifiedP ain in left legCramp and spasmLocaliz ed edema 4 Miguel ALBERTS, RVT, MARY Montez. [address] [place] [address], [place], [place], [id number], [place]. tel:[phone] Referring Provider: LIS PHILLIPS MD MPH R, [address], [place], [address]. tel:[phone] [facility], [address] [place] [address] Dr [address] 1000SuDottie hodge [place], [id number], [place] tel:[phone] CVR - [facility] Chronic venous hypertension (idiopathic) with other complication s of bilateral lower extremity 4 Miguel ALBERTS, RVT, MARY Montez. [address], [address], [place] lu[place], [id number], [place]. tel:[phone] Referring Provider: Korina JIANGP, [address] [place], [address]. tel:[phone] Family History Family Member Type Diagnosis Age At Onset No Information Payers Payer name Insurance type Covered alliance party ID Anny ramirez(s) [facility] [id number] Social History Type Description Quantity Date Captured [...]
--- OUTSIDE RECORDS SUMMARY | 2024-12-31 09:10 | XMS_ITS | Patient Health Record ---
Author Organization [facility] Clarisa Vangley Address [address] [facility] [place] [address] Care Team Providers Care Healthcare Educator Name Role Phone Wil ALBERTS, Annalee Justice Primary Care Provider Un available LakeshaKevin hill Unavailable [phone] Schmid Isabelle Unavailable [phone] Allergies Allergen (clinical drug ingredient) Drug/Non Drug Allergy documented on EMR Reaction Allergy Type Onset Date Status codeine Codeine Unknown Drug Allergy Active Latex Latex Unknown Allergy Active Substance with sulfonamide structure and antibacterial mechanism of action (substance) Sulfa Antibiotics rash Drug Allergy Active Reason For Referral No Information Medications Medication SIG (Take, Route, Frequency, Duration) [...] Osteoarthritis of midtarsal joint of left foot (8656018741863383 ) Osteoarthritis of midtarsal joint of left foot (M19.072) Active confirmed Problem Osteoarthritis of midtarsal joint of right foot (0683092038008780 ) Osteoarthritis of midtarsal joint of right foot (M19.071) Active confirmed Vital Signs Height 5 ft 5 in in 12/07/2024 Weight 232 lbs 12/07/2024 BMI 38.6 kg/m2 12/07/2024 Procedures Procedure Date Ordered Date Performed Result Body Sit e 64844-BWLDHFF NAIL, 1-5 12/07/2024 N/A 70001-Wwtywdfm Plate 12/07/2024 N/A 72070-KITQ SKIN LESIONS, 2 TO 4 12/07/2024 N/A [id number] DYSTROPHIC NAILS ANY # 12/07/2024 N/A Encounters Encounter [facility] Date [facility] [address] 12/07/2024 Kevin Crowder Atherosclerosis of artery of [...] right foot M19.071 and Ingrown nail L60.[address] [address] 10/11/2024 Isabelle [facility] [address] 12/07/2024 Kevin Crowder Assessments Encounter Date Diagnosis (ICD Code) Assessment Notes Treatment Notes Treatment Clinical Notes Section Notes 12/07/2024 Tinea unguium (ICD-10 - B35.1) 12/07/2024 Atherosclerosis of artery of both lower extremities (ICD-10 - I70.203) Q7(A), Q8(2B), Q9(1B,2C) 12/07/2024 Pain in right toe(s) (ICD-10 - [...] X ray : Foot, right 3V 12/07/2024 X ray : Foot, right 3V 03/21/2021 24754-FAWJLRW NAIL, 1-5 12/07/2024 09692-Posuadsx Plate 12/07/2024 59602-NNCI SKIN LESIONS, 2 TO 4 12/07/19 25 [id number]-[id number] DYSTROPHIC NAILS ANY # X ray : Ankle, right 3V 03/21/2021 Next Appt Details Provider Name:Kevin Crowder , 03/15/2025 02:45:00 PM, [address] [place], [address], Insurance Providers Payer Name Payer Address Payer Phone Subscriber Number Group Number Insured Name Patient Relationship to Insured Coverage Start Date Coverage End Date Medicare National [employer] [address] [place] [address] [id number] Davida Downey Self - patient is the insured [facility] [address] [place] [address] [id number] Davida Downey Self - patient is the insured Medical (General) History Medical History History ICD Code Back,Hip,and Knee pain Broken bones Diverticulosis Headaches/Migraines Poor circulation Vascular phlebitis (clots) Measles Chicken pox Arthritis Heart disease Kidney disease Sciatica Restless leg syndrome Surgical History Surgery Date(Month/Year) hysterectomy 02/2000 cardiac catheterization 2020 Hospitalization History Reason Date(Month/Year) C -AFib/ Kidney Failure 08/2020
== END 2024-12-31 10:21 | disposition home or self-care (01) ==
LOC: HO.HMCC 08:48
PROVIDERS: PCP Internal Medicine; Visit Provider Internal Medicine
DX: B02.29 Other postherpetic nervous system involvement (principal)

== ENCOUNTER → 2024-12-31 08:48 | Outpatient (BNVA) | payer MEDICARE, SELFPAY | PROVIDERS: PCP Internal Medicine; Visit Provider Internal Medicine | DX: B02.29 Other postherpetic nervous system involvement (principal) | CPT/HCPCS: 96127 ==

== ENCOUNTER 2025-01-03 11:19 | Outpatient (AMB) | payer MEDICARE, SELFPAY ==
--- NOTE | 2025-01-03 11:51 | MHC.OFFVISCO ---
Intake Intake Visit Reasons: Anticoagulation Allergies Sulfa (Sulfonamide Antibiotics) [SULFA(SULFONAMIDE ANTIBIOTICS)] Allergy (Unknown, Verified 01/03/25 11:31) RASH codeine Adverse Reaction (Verified 01/03/25 11:31) Vomiting oxycodone Adverse Reaction (Verified 01/03/25 11:31) Gastrointestinal Upset Medication List - Last Reconciled 01/03/25 by Mirna Trejo RN amiodarone 200 mg PO DAILY ascorbate calcium (vitamin C) 500 mg PO DAILY bumetanide 1 mg (1/2 x 2 mg) PO DAILY cholecalciferol (vitamin D3) 10 mcg PO DAILY gabapentin orally every 8 hours; 30 days multivitamin 1 tab PO DAILY warfarin See Protocol 2.5 mg X5 DAYS/ 5MG X 2 DAYS ( and ) Nursing Note INR 3.2 out of therapeutic range Medications and supplements reviewed Patient status: Pt c/o shingle pain still - states nothing helping it at this time, rash almost cleared- she will try cold compresses, and topical lidocaine to area and use back brush to apply it to see if it will ease some of her discomfort, and call md regarding ongoing pain Medications or supplements: she stated she completed tramadol and an antiviral Diet: good Denies any signs and symptoms of bleeding or clotting or unusual bruising Bleeding, bruising, clotting discussed Nutritional guidance given: faheem fischer today Dose: keep same dose for now 2.5mg x 2 days/ 5mg x 5 days F/U INR Date: 2 weeks ?? Patient verbalizing understanding of instructions given. Anti-Coag Initial Assessment Social Hx Patient Tobacco Use Status: Never used Tobacco alcohol intake: never Questionnaires HAS-BLED Does the patient had uncontrolled Hypertension?: No Does the patient have renal disease?: Yes Does the patient have liver disease?: No Does the patient have a history of stroke?: No Has the patient had major bleeding or predisposition to bleeding?: Yes Does the patient have labile INRs?: No Is the patient over 65 years of age?: Yes Is the patient on medications that gives them a predisposition to bleeding?: Yes Does the patient use alcohol?: No HAS-BLED Score: 4 CHADSVASC Age: 66-74 Gender: Female Does the patient have a history of CHF?: Yes Does the patient have a history of Hypertension?: No Does the patient have a history of Stroke/TIA/Thromboembolism?: Yes Does the patient have a history of Vascular Disease (prior IL, PAD or aortic plaque)?: No Does the patient have a history of Diabetes?: No CHADS VACS Score: 5 Hebert Prediction Score Rsk VTE Active Cancer: No Previous VTE, excluding superficial vein thrombosis: Yes Reduced mobility: Yes Already known Thrombophilic Condition: Yes With-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 Trauma and/or Surgery: No Elderly 70 year or older: No Heart and/or Respiratory Failure: Yes Acute Myocardial infarction and/or Ischemic Stroke: No Acute Infection and/or Rheumatologic Disorder: Yes Obesity (BMI 30 or greater): Yes Ongoing Hormonal Treatment: No Score: 12 Hebert Score less than 4; Low Risk of VTE Hebert Score 4 or greater; High Risk of VTE Coding Level of Care Code Est Patient Level 1 Diagnoses Current use of anticoagulant therapy Z79.01 Results AMB INR Fingerstick AMB INR Fingerstick 3.2 Last Edit by Mirna Trejo RN on 01/03/25 11:40 MANUAL ENTRY Assessment & Plan Assessment & Plan (1) Current use of anticoagulant therapy: Code(s): Z79.01 - detention (current) use of anticoagulants Category: Medical
[2025-01-03 12:26] LABS: Prothrombin Time Whole Bld POC 38.3 sec (11.1-13.5); ~PT, ~INR - Anti Coag Clinic 3.2 (0.9-1.1)
== END 2025-01-03 11:59 | disposition home or self-care (01) ==
LOC: HO.ACS 11:19
PROVIDERS: PCP Internal Medicine; Visit Provider Internal Medicine
DX: Z79.01 Long term (current) use of anticoagulants (principal)

== ENCOUNTER → 2025-01-03 11:19 | Outpatient (BNVA) | payer MEDICARE, SELFPAY | PROVIDERS: PCP Internal Medicine; Visit Provider Internal Medicine | DX: I48.0 Paroxysmal atrial fibrillation (principal); Z79.01 Long term (current) use of anticoagulants; Z51.81 Encounter for therapeutic drug level monitoring | CPT/HCPCS: 85610; 99211 ==

== ENCOUNTER 2025-01-04 12:08 | Outpatient (AMB) | payer MEDICARE, SELFPAY ==
--- NOTE | 2025-01-04 13:05 | MHC.OFFWIV ---
Intake Vital Signs 01/04/25 13:07 Weight 236 lb BP 122/80 Blood Pressure Location Lt brachial Position Sitting Pulse 58 Pulse Source Pulse Oximeter Pulse Oximetry (%) 97 Oxygen Delivery Method Room Air Intake Visit Reasons: EP pain in lt knee, diff walking Intake Note: Patient here for left shoulder blade pain that has been present for over 2 weeks. Patient Tobacco Use Status: Never used Tobacco Allergies Sulfa (Sulfonamide Antibiotics) [SULFA(SULFONAMIDE ANTIBIOTICS)] Allergy (Unknown, Verified 01/04/25 13:09) RASH codeine Adverse Reaction (Verified 01/04/25 13:09) Vomiting oxycodone Adverse Reaction (Verified 01/04/25 13:09) Gastrointestinal Upset Do you need a note to return to daycare/school/sports/work: No HPI HPI Comments History of Present Illness Details This is a 69-year-old female presenting for re-evaluation of her post herpetic neuralgia. Patient states on December 09 her symptoms started with chest pain that radiated to her back. On December 15 she was diagnosed with herpes zoster and treated with Valtrex 1 g t.i.d.. Patient completed this course of treatment and her primary care physician increased her gabapentin to 300 mg b.i.d. and 600 mg at bedtime. Patient states that she was also taking tramadol without complete relief of her discomfort. Patient is complaining of an aching pain in her left anterior chest wall and a burning pain on her left posterior trunk. Patient denies having any fevers, chills, cough or shortness of breath. [facility] Medical History History of kidney stones Dyslipidemia Osteoporosis Impaired fasting glucose Vaccine refused by patient Elevated brain natriuretic peptide (BNP) level Anemia Morbid obesity Iliotibial band syndrome Lumbosacral radiculopathy due to osteoarthritis of spine History of deep vein thrombophlebitis of lower extremity Positive ALVIN (antinuclear antibody) CKD (chronic kidney disease) stage 3, GFR 30-59 ml/min Osteoarthritis of right ankle and foot Postmenopausal Venous insufficiency of both lower extremities Diverticulitis Peripheral vascular complication of surgical procedure Peripheral vascular disease Hyperlipidemia DVT (deep venous thrombosis) Diastolic heart failure Paroxysmal A-fib BERE (obstructive sleep apnea) Surgical History History of lithotripsy History of cardiac cath Hx of vascular surgery H/O hysterectomy for benign disease Family History Father Emphysema, unspecified Mother No problems noted. Brother Atrial fibrillation Sister Atrial fibrillation Sister Breast cancer Social History Household Members: None Housing: House Do you presently have visiting nurse or other home services: No Alcohol intake: never Patient Tobacco Use Status: Never used Tobacco e-Cigarette/Vaping Use: Never Used service: No Current occupational status: retired and disabled Current occupation: rt handed Cognitive needs: No Hearing needs: No Vision needs: Yes Review of Systems Const All systems reviewed & are unremarkable except as noted in HPI and below Reports no additional complaints Eyes Reports no additional complaints ENT Reports no additional complaints Card Reports no additional complaints, Denies chest pain and Denies dyspnea Resp Reports no additional complaints, Denies cough, Denies dyspnea and Denies wheezing GI Reports no additional complaints Reports no additional complaints Musc Reports no additional complaints and Reports tingling Skin/Breast Reports lesions Neuro Reports tingling, Reports paresthesias and Reports other (burning sensation left thoracic region) Psych Reports no additional complaints Endo Reports no additional complaints Jt/Lymph Reports no additional complaints Aller/Immun Reports no additional complaints and Denies wheezing Physical Exam Vital Signs: Last Vital Signs Pulse 58 01/04/25 13:07 BP 122/80 01/04/25 13:07 Pulse Ox 97 01/04/25 13:07 Oxygen Delivery Method Room Air 01/04/25 13:07 Const General: cooperative, no acute distress, well developed, alert, awake, Physically active and anxious Nutritional Appearance: obese Orientation/consciousness: patient oriented x3 Limitations: no limitations and ambulation with cane Cardio Rate: regular rate Rhythm: regular rhythm Skin Other: There is cutaneous evidence of her recently diagnosed herpes zoster infection including macular erythematous lesions on the left anterior chest wall, left flank and left posterior trunk. There is no evidence of active vesicles at this time or secondary cellulitis. Neuro General: patient oriented x3 Psych Appearance: grossly normal Mental Status: mental status grossly normal Affect: Sad affect present and Anxious affect present Attitude: Guarded attititude/behavior present Insight: Good insight present (Psych) Judgement: Good judgement present (Psych) Assessment & Plan Assessment & Plan (1) Post herpetic neuralgia: Comment: Patient's most recent visits regarding her shingles are reviewed. Patient's gabapentin will be increased and she will be advised to use capsaicin topically. Code(s): B02.29 - Other postherpetic nervous system involvement Plan: Gabapentin 600 mg t.i.d., Capsaicin topical cream up to 4 times daily overlying the site of previously diagnosed herpes zoster. Patient will follow up with her primary care physician as an outpatient. Coding Level of Care Code Est Pt Level 3 (23366) Diagnoses Post herpetic neuralgia B02.29 Time Spent (min) 20
[2025-01-04 13:07] VITALS: BP 122/80; PULSE 58; O2SAT 97
== END 2025-01-04 14:39 | disposition home or self-care (01) ==
PROVIDERS: PCP Internal Medicine; Visit Provider Physician Assistant
DX: B02.29 Other postherpetic nervous system involvement (principal)

== ENCOUNTER → 2025-01-04 12:08 | Outpatient (BNVA) | payer MEDICARE, SELFPAY | PROVIDERS: PCP Internal Medicine | DX: B02.29 Other postherpetic nervous system involvement (principal) | CPT/HCPCS: 99212 ==

== ENCOUNTER 2025-01-07 08:52 | Outpatient (REF) | payer MEDICARE, SELFPAY ==
--- OUTSIDE RECORDS SUMMARY | 2025-01-10 08:56 | XMS_ITS | Continuity of Care Document ---
Author Organization [facility] Address [address] [place] [address] Phone Care Team Providers Care Outsole Splicer Name Role Phone Miguel ALBERTS, RVT, RPVI, [...] Providers Copied on Encounter [facility] [place], [address] [place] [address] [address], [place], [id number], [place] tel:[phone] [place] No Information 4 Miguel ALBERTS RVT, MARY Montez. [address] [place] [address], [place], [id number], [place]. tel:[phone] [facility] [place], [address] [place] [address] [address], [id number], [place] tel:[phone] [place] Varicose veins of left lower extremity with other complication s 4 Anjelica Reeder. [address] [place] [address], [facility] [place], [id number], [place]. tel:[phone] Referring Provider: Korina FAJARDO, [address] [place] [address], [address]. tel:[phone] [facility], [address] [place] [address] [address], [place], [id number], [place] tel:[phone] [place] Encounter for follow-up examination after completed treatment for conditions other than malignant nePain in left leg 4 Miguel ALBERTS RVT, MARY Montez. [address] [place] [address], [place], [id number], [place]. tel:[phone] Referring Provider: Korina FAJARDO, [place], [address]. tel:[phone] [facility], [address] [place] [address] [address] 1000[place], [id number], [place] tel:[phone] [place] Varicose veins of left lower extremity with other complication s 4 Miguel ALBERTS RVT, MARY Montez. [address] [place] [address], [place], [place], [id number], [place]. tel:[phone] Referring Provider: Korina FAJARDO, [address] [place] [address], [facility]. tel:[phone] Office/Outpt E&M Established 15 Mins- [place] & [place] [facility], [address] [place] [address] [address] [place] Greer [place], [id number], [place] tel:[phone] [place] Pruritus, unspecifiedV aricose veins of left lower extremity with other complication sLocalized edemaCramp and spasmRestles s legs syndrome 4 Miguel ALBERTS RVT, MARY Montez. [address] [place] [address], [facility] [place], [id number], [place]. tel:[phone] Referring Provider: Korina FAJARDO, [address] [place] [address], [facility]. tel:[phone] [facility], [address] [place] [address] Dr [address] 1000SuDottie hodge [place], [id number], [place] tel:[phone] [place] Encounter for follow-up examination after completed treatment for conditions other than malignant neChronic venous hypertension (idiopathic) with other complication s of bilateral lower extremity 4 Miguel ALBERTS RVT, MARY Montez. [address] [place] [address], [facility] [place], [id number], [place]. tel:[phone] Referring Provider: Korina FAJARDO, [address] [place] [address], [facility]. tel:[phone] [facility], [address] [place] [address] [address] 1000[place]ie [place], [id number], [place] tel:[phone] CVR [facility] Encounter for follow-up examination after completed treatment for conditions other than malignant neoplasmVari cose veins of left lower extremity with pain 4 Elizabeth Beth. [address], [address], [place], [place], [id number], [place]. tel:[phone] Referring Provider: Korina FAJARDO, [address] [place] [address], [address]. tel:[phone] [facility], [address] [place] [address] [facility] [address] [facility] [place], [id number], [place] tel:[phone] CVR [facility] Varicose veins of left lower extremity with other complication s 4 Miguel ALBERTS RVT, MARY Montez. [address] [place] [address], [place], [id number], [place]. tel:[phone] Referring Provider: Korina FAJARDO, [address] [place] [address], [address]. tel:[phone] [facility], [address] [place] [address] [facility] 1000Suite D[place] Greer [place], [id number], [place] tel:[phone] [facility] No Information 4 Miguel LABERTS RVT, MARY Montez. [address] [place] [address], [place], [id number], [place]. tel:[phone] [facility], [address] [place] [address] [address] 1000Dottie [place], [id number], [place] tel:[phone] CVR - [facility] Encounter for follow-up examination after completed treatment for conditions other than malignant neoplasmChro savi venous hypertension (idiopathic) with other complication s of right lower extremity 4 Miguel ALBERTS RVT, MARY Montez. [address] [place] [address], [place], [id number], [place]. tel:[phone] Referring Provider: Korina FAJARDO, [address] [place] [address], [facility]. tel:[phone] [facility] [place], [address] [place] [address] Dr [address] 1000SuDottie hodge [place], [id number], [place] tel:[phone] CVR - [facility] Varicose veins of right lower extremity with other complication s 4 Miguel ALBERTS RVT, MARY Montez. [address] [place] [address], [facility], [place], [id number], [place]. tel:[phone] Referring Provider: Korina FAJARDO, [address] [place] [address], [facility]. tel:[phone] [facility] [place], [address] [place] [address] [address] 1000Dottie hodge [place], [id number], [place] tel:[phone] CVR [facility] Encounter for follow-up examination after completed treatment for conditions other than malignant neVaricose veins of right lower extremity with pain 4 Miguel ALBERTS RVT, RPVI Robert. [address] [place] [address], [facility], [place], [id number], [place]. tel:[phone] Referring Provider: Korina FAJARDO, [address] [place] [address], [facility]. tel:[phone] [facility], [address] [place] [address] Dr [address] 1000SuDottie hodge [place], [id number], [place] tel:[phone] CVR - [facility] No Information 4 Miguel ALBERTS RVT, MARY Montez. [address] [place] [address], [facility] [place], [place], [id number], [place]. tel:[phone] [facility], [address] [place] [address] Dr [address] 1000SuDottie hodge [place], [id number], [place] tel:[phone] CVR - [facility] Chronic venous hypertension (idiopathic) with inflammation of right lower extremity 4 Miguel ALBERTS RVT, MARY Montez. [address] [place] [address], [place], [place], [id number], . tel:[phone] Referring Provider: Korina FAJARDO, [address] [place] [address], [address]. tel:[phone] Offic/outpt E&m Estab 5 Min Trial- Telemedicine [place] & [place] [facility], [address] [place] [address] Dr [address]Suite Dottie Greer [place], [id number], [place] tel:[phone] [place] Localized edemaCramp and spasmRestles s legs syndromeVeno us insufficienc y (chronic) (peripheral) Pruritus, unspecified Feb- 4 Dayo Camarillo. [address] [place] [address], [place], [place], [id number], [place]. tel:[phone] Referring Provider: Korina FAJARDO, [address] [place] [address], [address]. tel:[phone] Office/Oupt E&M New Pt 45 Mins [facility], [address] [place] [address] Dr [address]Suite [place]ie Greer [place], [id number], [place] tel:[phone] [place] Varicose veins of bilateral lower extremities with other complication Jarrod in right lower legPain in left lower legPain in right legRestless legs syndromePrur itus, unspecifiedP ain in left legCramp and spasmLocaliz ed edema 4 Miguel ALBERTS, RVT, MARY Montez. [address] [place] [address], [place], [place], [id number], [place]. tel:[phone] Referring Provider: LIS PHILLIPS MD MPH R, [address], [place], [address]. tel:[phone] [facility], [address] [place] [address] [address] 1000SuDottie hodge [place], [id number], [place] tel:[phone] CVR - [facility] Chronic venous hypertension (idiopathic) with other complication s of bilateral lower extremity 4 Miguel ALBERTS, RVT, MARY Montez. [address], [address], [place], [id number], [place]. tel:[phone] Referring Provider: Korina JIANGP, [address] [place], [address]. tel:[phone] Family History Family Member Type Diagnosis Age At Onset No Information Payers Payer name Insurance type Covered green party ID Keniacaitlin gerardobobbi(s) [facility] [id number] Social History Type Description Quantity Date Captured [...]
--- OUTSIDE RECORDS SUMMARY | 2025-01-10 08:56 | XMS_ITS | Clinical Summary ---
Author Organization [facility] Address [address] [address] Care Team Providers Care Sales Enablement Analyst Name Role Phone Dena Gore MD Primary Care Provider [phone] Allergies Active Allergy Reactions Criticality Noted Date [...] require that she be seen at the [facility] but she should definitely be quarantined since onset of her symptoms Friday for 14 days. Patient works at [employer] and would like a note for work [...] disease of the hips bilaterally, referral to [facility] orthopedics for consultation question management. The [...] prior to testing. Until then, can try [id number] antihistamine such as generic versions of Margy, [...] age to complete this topic Insurance MEDICARE [facility] MEDICARE [facility] Care Teams Sales Enablement Analyst Relationship Specialty Start Date End Date Dena Gore MD [address] [place] [address] PCP - General Internal Medicine 03/13/22
--- OUTSIDE RECORDS SUMMARY | 2025-01-10 08:56 | XMS_ITS ---
Author Organization [facility] Address [address] [place] [address] Care Team Providers Care Reconnaissance Man Name Role Phone Wil ALBERTS, Annalee Justice Primary Care Provider Un available Kevin Crowder Unavailable [phone] REASON FOR VISIT comfort plus 9 9 half Encounters Encounter Location Date Provider Diagnosis [facility] [address] [place] [address] 12/07/2024 Kevin Crowder Plan Of Treatment Next Appt Details Provider Name:Kevin Crowder , 03/15/2025 02:45:00 PM, [address] [place], [address], Progress Notes * RENEDonlad CASTANOIlaB:1955 (69 yo F)Acc No.[id number]:12/07/2024 Patient:?Davida RUIZ :1955???Age:69 Y???Sex:Female Address:[address] [place] [address], [address] * true * Date:? Generated for Елена linda/Kallie/eTransmitting on:?01/10/2025 08:55 AM EST
--- OUTSIDE RECORDS SUMMARY | 2025-01-10 08:56 | XMS_ITS ---
Author Organization [facility] Address [address] [place] [address] Care Team Providers Care Typewriter Ribbon Winder Name Role Phone Wil ALBERTS, Annalee Justice Primary Care Provider Un available Kevin Crowder Unavailable [phone] Isabelle Schmid [phone] REASON FOR VISIT sooner appt Encounters Encounter Location Date Provider Diagnosis [facility] [address] [place] [address] 12/16/2024 Isabelle Schmid Plan Of Treatment Next Appt Details Provider Name:Kevin Crowder , 03/15/2025 02:45:00 PM, [address] [place] [address], [phone], Progress Notes * Donald RUIZaDOB:1955 (69 yo F)Acc No.[id number]:12/16/2024 Progress Notes Patient:?Davida RUIZ Provider:?Isabelle Schmid DPM :1955???Age:69 Y???Sex:Female D ate:12/16/2024 Address:[address] [place], [place] [id number] Pcp:Zachery Giordano Subjective: * Chief Complaints: * [...] DPM Date:?0 12/16/2024 Generated for Елена linda/Kallie/Juancarlos on:?01/10/2025 08:56 AM EST
--- OUTSIDE RECORDS SUMMARY | 2025-01-10 08:56 | XMS_ITS ---
Author Organization [facility] Clarisa flores [place] Address [address] [facility] [place] [address] Care Team Providers Care Powerhouse Attendant Name Role Phone Wil ALBERTS, Annalee Justice Primary Care Provider Un available Kevin Crowder Unavailable [phone] Allergies Allergen (clinical drug ingredient) Drug/Non Drug [...] Osteoarthritis of midtarsal joint of left foot (8935914850238402 ) Osteoarthritis of midtarsal joint of left foot (M19.072) Active confirmed Problem Osteoarthritis of midtarsal joint of right foot (8871825031126829 ) Osteoarthritis of midtarsal joint of right foot (M19.071) Active confirmed Vital Signs Height 5 ft 5 in in 12/07/2024 Weight 232 lbs 12/07/2024 BMI 38.6 kg/m2 12/07/2024 Procedures Procedure Date Ordered Date Performed Result Body Sit e 51901-DCFYAZY NAIL, 1-5 12/07/2024 N/A 25920-Sgnvhuzc Plate 12/07/2024 N/A 13355-MYGC SKIN LESIONS, 2 TO 4 12/07/2024 N/A P2071-ZJMLFKZK DYSTROPHIC NAILS ANY # 12/07/2024 N/A Encounters Encounter Location Date Provider Diagnosis [facility] [place] [address] [place] [address] 12/07/2024 Kevin Crowder Atherosclerosis of artery of [...] X ray : Foot, right 3V 12/07/2024 16976-GQUVOHG NAIL, 1-5 12/07/2024 92342-Brvqlahe Plate 12/07/2024 06127-GASJ SKIN LESIONS, 2 TO 4 12/07/19 25 Q0954-MKWUEMGS DYSTROPHIC NAILS ANY # Next Appt Details Follow Up: prn, Reason: Provider Name:Kevin Crowder , 03/15/2025 02:45:00 PM, [address] [place], [address], Procedure Notes * Category Sub-Category [...] Motrin was recommended for pain or discomfort (27478), CIRCULATION: Pt was advised as to the [...] instrumentation by the physician of record - 23935, Q8 Debride Nails 1-5 Procedure: Due to [...] necessary to maintain effective symptomatic relief - 02632 Nail Reduction Nail Reduction (-27) Trimming o [...] Notes * RENELUIS LoanB:1955 (69 yo F)Acc No.[id number]:12/07/2024 Progress Notes Patient:?Davida DOWNEY Provider:?Kevin Crowder DPM :1955???Age:69 Y???Sex:Female D ate:12/07/2024 Address:[address] [place] [address] Pcp:Zachery Giordano Subjective: * Chief Complaints: * [...] Foot, AP, LAT, LO, B/L??Taken by trained?Podiatric Hob Grinder (?__ ).?Findings:?normal bone and soft tissue density [...] nail border,?TA??? Plan: * Treatment: 2.?Tinea unguium?Procedure: 73079-MSGNHSL NAIL, 1-5 3.?Pain in left foot?Imaging: X ray : Foot, left 3V 4.?Pain in right foot?Imaging: X ray : Foot, right 3V 5.?Ingrown nail?Procedure: 96142-Fbjxjlxk Plate * Procedures:?Debride Nails 1-5:?Procedure:?Due to the [...] necessary to maintain effective symptomatic relief - 90668.?Keratoma Treatment:?Parring or Cutting of Benign Hyperkeratotic Lesion(s)?(-56) [...] instrumentation by the physician of record - 49221, Q8.?Nail Avulsion:?Location?Lateral nail border,?TA.?Anesthesia?2cc of 1 percent [...] Motrin was recommended for pain or discomfort (33865), CIRCULATION: Pt was advised as to the [...] DYSTROPHIC NAILS ANY #, Modifiers: XS , [id number] Avulsion Plate, Modifiers: XS , [id number] X-RAY EXAM OF LEFT FOOT 3V, Modifiers: 26 , [id number] X-RAY EXAM OF RIGHT FOOT 3V, Modifiers: 26 , [id number] DEBRIDE NAIL, 1-5, Modifiers: XS 28223 TRIM SKIN LESIONS, 2 TO 4, Modifiers: [...] exercise to failure, expense, systemic complications, infection, ugdpfyh-vql-ehvarov, prolongued postop course. Patient questions re: the various treatment options available, their successes and potential failures, and residential effects were discussed and the answers were [...] time worn until they are using them oven tender bagels and in all activities. They were asked [...] Crowder DPM Date:?2024 Generated for Елена linda/Kallie/Kaushalitting on:?01/10/2025 08:56 AM EST History and Physical Notes * [...] LAT, LO, B/L Taken by trained Podiatric Hob Grinder ( __ ) Clinical Indication(s): Evaluate for Fra cture, Evaluate Biomechanical Deformity
--- OUTSIDE RECORDS SUMMARY | 2025-01-10 08:57 | XMS_ITS | Patient Health Record ---
Author Organization [facility] Clarisa Vangley Address [address] [facility] [place] [address] Care Team Providers Care Overedge Sewer Name Role Phone Wil ALBERTS, Annalee Justice Primary Care Provider Un available LakeshaKevin hill Unavailable [phone] Schmid Isabelle Unavailable [phone] Allergies Allergen (clinical drug ingredient) Drug/Non Drug [...] Osteoarthritis of midtarsal joint of left foot (3420495205820605 ) Osteoarthritis of midtarsal joint of left foot (M19.072) Active confirmed Problem Osteoarthritis of midtarsal joint of right foot (8822000656043882 ) Osteoarthritis of midtarsal joint of right foot (M19.071) Active confirmed Vital Signs Height 5 ft 5 in in 12/07/2024 Weight 232 lbs 12/07/2024 BMI 38.6 kg/m2 12/07/2024 Procedures Procedure Date Ordered Date Performed Result Body Sit e 65377-QGFJXVG NAIL, 1-5 12/07/2024 N/A 16307-Yuzpiwwv Plate 12/07/2024 N/A 98109-EPPR SKIN LESIONS, 2 TO 4 12/07/2024 N/A F9901-OTBCPDOS DYSTROPHIC NAILS ANY # 12/07/2024 N/A Encounters Encounter [facility] Date [facility] [address] 12/07/2024 Kevin Crowder Atherosclerosis of artery of [...] right foot M19.071 and Ingrown nail L60.[address] [address] 10/11/2024 [facility] [address] 12/07/2024 Kevin Crowder Assessments Encounter Date Diagnosis [...] X ray : Foot, right 3V 03/21/2021 54613-UYUIHSF NAIL, 1-5 12/07/2024 75786-Wfxngjtp Plate 12/07/2024 99555-UWUB SKIN LESIONS, 2 TO 4 12/07/19 25 X9264-YZDFZAYF DYSTROPHIC NAILS ANY # X ray : Ankle, right 3V 03/21/2021 Next Appt Details Provider Name:Kevin Crowder , 03/15/2025 02:45:00 PM, [address] [place], [address], Insurance Providers Payer Name Payer Address Payer Phone Subscriber Number Group Number Insured Name Patient Relationship to Insured Coverage Start Date Coverage End Date Medicare National Govt Sv[employer] [address] [place] [address] [id number] Davida Downey Self - patient is the insured [address] [facility] [address] [place] [address] [id number] Davida Downey Self - patient is the [...]
== END 2025-01-07 08:53 | disposition home or self-care (01) ==
LOC: HO.HOSX 08:52
PROVIDERS: Visit Provider Physician Assistant
DX: Z13.89 Encounter for screening for other disorder (principal)

== ENCOUNTER 2025-01-19 10:06 | Outpatient (AMB) | payer MEDICARE, SELFPAY ==
[2025-01-19 10:15] LABS: Prothrombin Time Whole Bld POC 30.4 sec (11.1-13.5); ~PT, ~INR - Anti Coag Clinic 2.5 (0.9-1.1)
--- NOTE | 2025-01-19 10:30 | MHC.OFFVISCO ---
Intake Intake Visit Reasons: Anticoagulation Allergies Sulfa (Sulfonamide Antibiotics) [SULFA(SULFONAMIDE ANTIBIOTICS)] Allergy (Unknown, Verified 01/19/25 10:09) RASH codeine Adverse Reaction (Verified 01/19/25 10:09) Vomiting oxycodone Adverse Reaction (Verified 01/19/25 10:09) Gastrointestinal Upset Medication List - Last Reconciled 01/19/25 by Rachael Dunlap RN amiodarone 200 mg PO DAILY ascorbate calcium (vitamin C) 500 mg PO DAILY bumetanide 1 mg (1/2 x 2 mg) PO DAILY cholecalciferol (vitamin D3) 10 mcg PO DAILY gabapentin 600 mg (2 x 300 mg) PO Q8H 30 days multivitamin 1 tab PO DAILY warfarin See Protocol 2.5 mg X5 DAYS/ 5MG X 2 DAYS ( and HANSON) Nursing Note PT.CONTINUES TO HAVE (L) CHEST PAIN DUE TO SHINGLES. GABAPENTIN IN INCREASED TO 600MGM BID WITH SOME RELIEF, BUT STILL VERY UNCOMFORTABLE. CONTINUE PRESENT WARFARIN DOSE AND FOLLOW-UP HERE IN 2 WEEKS GOOD UNDERSTANDING OF DOSING INSTR. 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
--- OUTSIDE RECORDS SUMMARY | 2025-01-19 12:11 | XMS_ITS | Patient Health Record ---
Author Organization [facility] Clarisa Vangley Address [address] [facility] [place] [address] Care Team Providers Care Diplomatic Interpreter/Translator Name Role Phone Wil ALBERTS, Annalee Justice Primary Care Provider Un available LakeshaKevin hill Unavailable [phone] Schmid Isabelle Unavailable [phone] Allergies Allergen (clinical drug ingredient) Drug/Non Drug [...] Osteoarthritis of midtarsal joint of left foot (9300899410867448 ) Osteoarthritis of midtarsal joint of left foot (M19.072) Active confirmed Problem Osteoarthritis of midtarsal joint of right foot (7805435057892615 ) Osteoarthritis of midtarsal joint of right foot (M19.071) Active confirmed Vital Signs Height 5 ft 5 in in 12/07/2024 Weight 232 lbs 12/07/2024 BMI 38.6 kg/m2 12/07/2024 Procedures Procedure Date Ordered Date Performed Result Body Sit e 07698-LTJHLGM NAIL, 1-5 12/07/2024 N/A 94316-Ckwllcjg Plate 12/07/2024 N/A 61824-GWYT SKIN LESIONS, 2 TO 4 12/07/2024 N/A F9467-WTLCNNFM DYSTROPHIC NAILS ANY # 12/07/2024 N/A Encounters Encounter [facility] [address] 12/07/2024 Kevin Crowder Atherosclerosis of artery of [...] right foot M19.071 and Ingrown nail L60.[address] [address] 10/11/2024 [facility] [address] 12/07/2024 Kevin Crowder Assessments Encounter Date Diagnosis [...] X ray : Foot, right 3V 03/21/2021 05010-MWMRACM NAIL, 1-5 12/07/2024 21192-Wcewnxtw Plate 12/07/2024 57458-ACTA SKIN LESIONS, 2 TO 4 12/07/19 25 Z1108-ZKBTQNWD DYSTROPHIC NAILS ANY # X ray : Ankle, right 3V 03/21/2021 Next Appt Details Provider Name:Kevin Crowder , 03/15/2025 02:45:00 PM, [address] [place], [address], Insurance Providers Payer Name Payer Address Payer Phone Subscriber Number Group Number Insured Name Patient Relationship to Insured Coverage Start Date Coverage End Date Medicare National Govt Svcs Inc [address] [place] [address] [id number] Davida Downey Self - patient is the insured 1 [facility] [address] [place] [address] [id number] Davida Downey Self - patient is the [...]
--- OUTSIDE RECORDS SUMMARY | 2025-01-19 12:11 | XMS_ITS ---
Author Organization [facility] Address [address] [place] [address] Care Team Providers Care Process Improvement Manager Name Role Phone Wil ALBERTS, Annalee Justice Primary Care Provider Un available Kevin Crowder Unavailable [phone] REASON FOR VISIT comfort plus 9 9 half Encounters Encounter Location Date Provider Diagnosis [address] [address] 12/07/2024 Kevin Crowder Plan Of Treatment Next Appt Details Provider Name:Kevin Crowder , 03/15/2025 02:45:00 PM, [address] [place], [address], Progress Notes * Donald RUIZIlaB:1955 (69 yo F)Acc No.[id number]:12/07/2024 Patient:?Davida RUIZ :1955???Age:69 Y???Sex:Female Address:[address] [place] [address], [address] * true * Date:? Generated for oJhanni alexei/Kallie/eTransmitting on:?01/19/2025 12:10 PM EST
--- OUTSIDE RECORDS SUMMARY | 2025-01-19 12:11 | XMS_ITS | Clinical Summary ---
Author Organization [facility] Address [address] [address] Care Team Providers Care Drive Thru Order Taker Name Role Phone Dena Gore MD Primary Care Provider [phone] Allergies Active Allergy Reactions Criticality Noted Date [...] require that she be seen at the [facility] but she should definitely be quarantined since onset of her symptoms Friday for 14 days. Patient works at [employer] and would like a note for work [...] disease of the hips bilaterally, referral to [facility] orthopedics for consultation question management. The [...] prior to testing. Until then, can try lupp-kpz-jtkhehx antihistamine such as generic versions of Margy, [...] age to complete this topic Insurance MEDICARE [facility] MEDICARE [facility] Care Teams Drive Thru Order Taker Relationship Specialty Start Date End Date Dena Gore MD [address] [place] [address] PCP - General Internal Medicine 03/13/22
--- OUTSIDE RECORDS SUMMARY | 2025-01-19 12:11 | XMS_ITS ---
Author Organization [facility] Address [address] [place] [address] Care Team Providers Care Broacher Name Role Phone Wil ALBERTS, Annalee Justice Primary Care Provider Un available Kevin Crowder Unavailable [phone] Isabelle Schmid [phone] REASON FOR VISIT sooner appt Encounters Encounter Location Date Provider Diagnosis [facility] [address] [place] [address] 12/16/2024 Isabelle Schmid Plan Of Treatment Next Appt Details Provider Name:Kevin Crowder , 03/15/2025 02:45:00 PM, [address] [place] [address], [address], Progress Notes * Donald RUIZaDOB:1955 (69 yo F)Acc No.[id number]:12/16/2024 Progress Notes Patient:?Davida RUIZ Provider:?Isabelle Schmid DPM :1955???Age:69 Y???Sex:Female D ate:12/16/2024 Address:[address] [place], [place] [id number] Pcp:Zachery Giordano Subjective: * Chief Complaints: * [...] DPM Date:?0 12/16/2024 Generated for Елена linda/Kallie/Juancarlos on:?01/19/2025 12:10 PM EST
--- OUTSIDE RECORDS SUMMARY | 2025-01-19 12:11 | XMS_ITS ---
Author Organization [facility] Clarisa flores [place] Address [address] [facility] [place] [address] Care Team Providers Care Dye Range Operator Name Role Phone Wil ALBERTS, Annalee Justice Primary Care Provider Un available Kevin Crowder Unavailable [phone] Allergies Allergen (clinical drug ingredient) Drug/Non Drug [...] Osteoarthritis of midtarsal joint of left foot (2165419202017611 ) Osteoarthritis of midtarsal joint of left foot (M19.072) Active confirmed Problem Osteoarthritis of midtarsal joint of right foot (4874694617436172 ) Osteoarthritis of midtarsal joint of right foot (M19.071) Active confirmed Vital Signs Height 5 ft 5 in in 12/07/2024 Weight 232 lbs 12/07/2024 BMI 38.6 kg/m2 12/07/2024 Procedures Procedure Date Ordered Date Performed Result Body Sit e 29335-XFXMEGY NAIL, 1-5 12/07/2024 N/A 59238-Potwejbd Plate 12/07/2024 N/A 40542-FPIM SKIN LESIONS, 2 TO 4 12/07/2024 N/A W8149-UIHKDMOY DYSTROPHIC NAILS ANY # 12/07/2024 N/A Encounters Encounter Location Date Provider Diagnosis [facility] [place] [address] [place] [address] 12/07/2024 Kevin Crowder Atherosclerosis of artery of [...] X ray : Foot, right 3V 12/07/2024 41794-IBTXSXJ NAIL, 1-5 12/07/2024 55709-Lyfunnwr Plate 12/07/2024 95829-IMHV SKIN LESIONS, 2 TO 4 12/07/19 25 W3117-VTJJEOPP DYSTROPHIC NAILS ANY # Next Appt Details Follow Up: prn, Reason: Provider Name:Kevin Crowder , 03/15/2025 02:45:00 PM, [address] [place], [address], Procedure Notes * Category Sub-Category [...] Motrin was recommended for pain or discomfort (48215), CIRCULATION: Pt was advised as to the [...] instrumentation by the physician of record - 81006, Q8 Debride Nails 1-5 Procedure: Due to [...] necessary to maintain effective symptomatic relief - 21820 Nail Reduction Nail Reduction (-27) Trimming o [...] Notes * RENELUIS LoanB:1955 (69 yo F)Acc No.[id number]:12/07/2024 Progress Notes Patient:?Davida DOWNEY Provider:?Kevin Crowder DPM :1955???Age:69 Y???Sex:Female D ate:12/07/2024 Address:[address] [place] [address] Pcp:Zachery Giordano Subjective: * Chief Complaints: * [...] Foot, AP, LAT, LO, B/L??Taken by trained?Podiatric Base Wad Operator Adjuster (?__ ).?Findings:?normal bone and soft tissue density [...] nail border,?TA??? Plan: * Treatment: 2.?Tinea unguium?Procedure: 55716-ASIOIWM NAIL, 1-5 3.?Pain in left foot?Imaging: X ray : Foot, left 3V 4.?Pain in right foot?Imaging: X ray : Foot, right 3V 5.?Ingrown nail?Procedure: 86391-Rgyfeunh Plate * Procedures:?Debride Nails 1-5:?Procedure:?Due to the [...] necessary to maintain effective symptomatic relief - 53270.?Keratoma Treatment:?Parring or Cutting of Benign Hyperkeratotic Lesion(s)?(-56) [...] instrumentation by the physician of record - 79324, Q8.?Nail Avulsion:?Location?Lateral nail border,?TA.?Anesthesia?2cc of 1 percent [...] Motrin was recommended for pain or discomfort (20702), CIRCULATION: Pt was advised as to the [...] DYSTROPHIC NAILS ANY #, Modifiers: XS , [id number] Avulsion Plate, Modifiers: XS , [id number] X-RAY EXAM OF LEFT FOOT 3V, Modifiers: 26 , [id number] X-RAY EXAM OF RIGHT FOOT 3V, Modifiers: 26 , [id number] DEBRIDE NAIL, 1-5, Modifiers: XS 15045 TRIM SKIN LESIONS, 2 TO 4, Modifiers: [...] exercise to failure, expense, systemic complications, infection, ifgreki-skn-iqicsnn, prolongued postop course. Patient questions re: the various treatment options available, their successes and potential failures, and jail effects were discussed and the answers were [...] time worn until they are using them time study clerk and in all activities. They were asked [...] Crowder DPM Date:?2024 Generated for Елена linda/Kallie/Kaushalitting on:?01/19/2025 12:10 PM EST History and Physical Notes * HPI [...] LAT, LO, B/L Taken by trained Podiatric Base Wad Operator Adjuster ( __ ) Clinical Indication(s): Evaluate for Fra cture, Evaluate Biomechanical Deformity
== END 2025-01-19 10:32 | disposition home or self-care (01) ==
LOC: HO.ACS 10:06
PROVIDERS: PCP Internal Medicine; Visit Provider Internal Medicine
DX: Z79.01 Long term (current) use of anticoagulants (principal)

== ENCOUNTER → 2025-01-19 10:06 | Outpatient (BNVA) | payer MEDICARE, SELFPAY | PROVIDERS: PCP Internal Medicine; Visit Provider Internal Medicine | DX: I48.0 Paroxysmal atrial fibrillation (principal); Z79.01 Long term (current) use of anticoagulants; Z51.81 Encounter for therapeutic drug level monitoring | CPT/HCPCS: 85610; 99211 ==

== ENCOUNTER 2025-01-25 15:27 | Outpatient (AMB) | payer MEDICARE, SELFPAY ==
--- NOTE | 2025-01-25 16:19 | AM.OFFWIN_ITS ---
Intake Vital Signs 01/25/25 16:25 Weight 237 lb BP 130/78 Blood Pressure Location Rt brachial Position Sitting Pulse 52 Pulse Source Pulse Oximeter Temp 97.9 F Temp Source Oral Pulse Oximetry (%) 98 Oxygen Delivery Method Room Air Intake Visit Reasons: EP-shingles pain Intake Note: Patient here for shingles pain on left side of rib area and back. she stated she had shingles mid November and the pain has not improved. Patient Tobacco Use Status: Never used Tobacco Allergies Sulfa (Sulfonamide Antibiotics) [SULFA(SULFONAMIDE ANTIBIOTICS)] Allergy (Unknown, Verified 01/25/25 16:26) RASH codeine Adverse Reaction (Verified 01/25/25 16:26) Vomiting oxycodone Adverse Reaction (Verified 01/25/25 16:26) Gastrointestinal Upset Do you need a note to return to daycare/school/sports/work: No HPI HPI Comments History of Present Illness Details This is a 69-year-old female presenting for re-evaluation of her post herpetic neuralgia. Patient states on December 09 her symptoms started with chest pain that radiated to her back. On December 15 she was diagnosed with herpes zoster and treated with Valtrex 1 g t.i.d.. Patient has been prescribed gabapentin 600 mg t.i.d. which she states was helpful for her however she ran out of the medication, called for a refill and was Prescribed a single tablet to take once daily. Patient states the gabapentin has been helpful for control of her neuralgia however does not completely resolve the pain. Patient states that her discomfort is most significant on her left breast and left flank. Patient has follow up with her primary care provider at the end of January. [facility] Medical History History of kidney stones Dyslipidemia Osteoporosis Impaired fasting glucose Vaccine refused by patient Elevated brain natriuretic peptide (BNP) level Anemia Morbid obesity Iliotibial band syndrome Lumbosacral radiculopathy due to osteoarthritis of spine History of deep vein thrombophlebitis of lower extremity Positive ALVIN (antinuclear antibody) CKD (chronic kidney disease) stage 3, GFR 30-59 ml/min Osteoarthritis of right ankle and foot Postmenopausal Venous insufficiency of both lower extremities Diverticulitis Peripheral vascular complication of surgical procedure Peripheral vascular disease Hyperlipidemia DVT (deep venous thrombosis) Diastolic heart failure Paroxysmal A-fib BERE (obstructive sleep apnea) Surgical History History of lithotripsy History of cardiac cath Hx of vascular surgery H/O hysterectomy for benign disease Family History Father Emphysema, unspecified Mother No problems noted. Brother Atrial fibrillation Sister Atrial fibrillation Sister Breast cancer Social History Household Members: None Housing: House Do you presently have visiting nurse or other home services: No Alcohol intake: never Patient Tobacco Use Status: Never used Tobacco e-Cigarette/Vaping Use: Never Used service: No Current occupational status: retired and disabled Current occupation: rt handed Cognitive needs: No Hearing needs: No Vision needs: Yes Review of Systems Const All systems reviewed & are unremarkable except as noted in HPI and below Eyes Reports no additional complaints ENT Reports no additional complaints Card Reports no additional complaints Resp Reports no additional complaints GI Reports no additional complaints Reports no additional complaints Musc Reports no additional complaints and Reports tingling Skin/Breast Reports system reviewed and no additional complaints, except as documented Neuro Reports tingling and Reports paresthesias Psych Reports no additional complaints Endo Reports no additional complaints Tj/Lymph Reports no additional complaints Aller/Immun Reports no additional complaints Physical Exam Vital Signs: Last Vital Signs Temp 97.9 F 01/25/25 16:25 Pulse 52 01/25/25 16:25 BP 130/78 01/25/25 16:25 Pulse Ox 98 01/25/25 16:25 Oxygen Delivery Method Room Air 01/25/25 16:25 Const General: cooperative, comfortable and well developed; No acute distress Nutritional Appearance: obese Orientation/consciousness: patient oriented x3 Limitations: no limitations Skin Other: faded erythematous lesions on left posterior trunk only; no lesions noted left breast or left flank, no erythema, no warmth to touch Neuro General: patient oriented x3 Psych Appearance: grossly normal Mental Status: mental status grossly normal Insight: Good insight present (Psych) Judgement: Good judgement present (Psych) Assessment & Plan Assessment & Plan (1) Post herpetic neuralgia: Comment: Patient's most recent visits regarding her shingles are reviewed. Code(s): B02.29 - Other postherpetic nervous system involvement Plan: Gabapentin 600 mg t.i.d.. Patient will follow up with her primary care provider as previously scheduled. Medications: New gabapentin 600 mg PO TID 90 tabs 0RF Coding Level of Care Code Est Pt Level 3 (25188) Diagnoses Post herpetic neuralgia B02.29 Time Spent (min) 20
[2025-01-25 16:25] VITALS: BP 130/78; PULSE 52; TEMP 36.6; O2SAT 98
--- OUTSIDE RECORDS SUMMARY | 2025-01-25 19:33 | XMS_ITS | Clinical Summary ---
Author Organization [facility] Address [address] [address] Care Team Providers Care Loss Prevention Research Engineer Name Role Phone Dena Gore MD Primary Care Provider Allergies Active Allergy Reactions Criticality Noted Date [...] require that she be seen at the [facility] but she should definitely be quarantined since onset of her symptoms Friday for 14 days. Patient works at [employer] and would like a note for work [...] disease of the hips bilaterally, referral to [facility] orthopedics for consultation question management. The [...] prior to testing. Until then, can try atwi-ffq-gsyyjqe antihistamine such as generic versions of Margy, [...] age to complete this topic Insurance MEDICARE [facility] MEDICARE [facility] Care Teams Loss Prevention Research Engineer Relationship Specialty Start Date End Date Dena Gore MD [address] [place] [address] PCP - General Internal Medicine 03/13/22
--- OUTSIDE RECORDS SUMMARY | 2025-01-25 19:33 | XMS_ITS ---
Author Organization [facility] Address [address] [place] [address] Care Team Providers Care Groundskeeper Supervisor Name Role Phone Wil ALBERTS, Annalee Justice Primary Care Provider Un available Kevin Crowder Unavailable [phone] REASON FOR VISIT comfort plus 9 9 half Encounters Encounter Location Date Provider Diagnosis [address] [address] 12/07/2024 Kevin Crowder Plan Of Treatment Next Appt Details Provider Name:Kevin Crowder , 03/15/2025 02:45:00 PM, [address] [place], [address], Progress Notes * RENEDonald CASTANOIlaB:1955 (69 yo F)Acc No.[id number]:12/07/2024 Patient:?Davida RUIZ :1955???Age:69 Y???Sex:Female Address:[address] [place] [address], [address] * true * Date:? Generated for Елена linda/Kallie/eTransmitting on:?01/25/2025 07:32 PM EST
--- OUTSIDE RECORDS SUMMARY | 2025-01-25 19:33 | XMS_ITS | Patient Health Record ---
Author Organization [facility] Clarisa Vangley Address [address] [place] [address] Care Team Providers Care Fisher Trammel Net Name Role Phone Wil ALBERTS, Annalee Justice Primary Care Provider Un available LakeshaKevin hill Unavailable [phone] Schmid Isabelle Unavailable [phone] Allergies Allergen (clinical drug ingredient) Drug/Non Drug [...] Osteoarthritis of midtarsal joint of left foot (3435688695564108 ) Osteoarthritis of midtarsal joint of left foot (M19.072) Active confirmed Problem Osteoarthritis of midtarsal joint of right foot (4952972792033453 ) Osteoarthritis of midtarsal joint of right foot (M19.071) Active confirmed Vital Signs Height 5 ft 5 in in 12/07/2024 Weight 232 lbs 12/07/2024 BMI 38.6 kg/m2 12/07/2024 Procedures Procedure Date Ordered Date Performed Result Body Sit e 32704-VPJCDEG NAIL, 1-5 12/07/2024 N/A 07894-Okjtqush Plate 12/07/2024 N/A 35423-WDCW SKIN LESIONS, 2 TO 4 12/07/2024 N/A N1530-HINXDHRB DYSTROPHIC NAILS ANY # 12/07/2024 N/A Encounters Encounter Location Date Provider Diagnosis [facility] [address] 12/07/2024 Kevin Crowder Atherosclerosis of artery of [...] right foot M19.071 and Ingrown nail L60.[address] [address] 10/11/2024 Isabelle Schmid [facility] [address] 12/07/2024 Kevin Crowder Assessments Encounter Date Diagnosis [...] X ray : Foot, right 3V 03/21/2021 47420-ZMJDGAF NAIL, 1-5 12/07/2024 25317-Nkhmvjsx Plate 12/07/2024 59023-MOUT SKIN LESIONS, 2 TO 4 12/07/19 25 Q3397-DXBIFNVU DYSTROPHIC NAILS ANY # X ray : Ankle, right 3V 03/21/2021 Next Appt Details Provider Name:Kevin Crowder , 03/15/2025 02:45:00 PM, [address] [place], [address], Insurance Providers Payer Name Payer Address Payer Phone Subscriber Number Group Number Insured Name Patient Relationship to Insured Coverage Start Date Coverage End Date Medicare National Govt Svcs Inc [address] [place] [address] [id number] Davida Downey Self - patient is the insured [facility] [address] [place] [address] [id number] Davida Downey Self - patient is the [...]
--- OUTSIDE RECORDS SUMMARY | 2025-01-25 19:33 | XMS_ITS ---
Author Organization [facility] Clarisa flores [place] Address [address] [facility] [place] [address] Care Team Providers Care Machine Scallop Cutter Name Role Phone Wil ALBERTS, Annalee Justice Primary Care Provider Un available Kevin Crowder Unavailable [phone] Allergies Allergen (clinical drug ingredient) Drug/Non Drug [...] Osteoarthritis of midtarsal joint of left foot (0249394059976813 ) Osteoarthritis of midtarsal joint of left foot (M19.072) Active confirmed Problem Osteoarthritis of midtarsal joint of right foot (1028605399431048 ) Osteoarthritis of midtarsal joint of right foot (M19.071) Active confirmed Vital Signs Height 5 ft 5 in in 12/07/2024 Weight 232 lbs 12/07/2024 BMI 38.6 kg/m2 12/07/2024 Procedures Procedure Date Ordered Date Performed Result Body Sit e 99716-RVRCSTE NAIL, 1-5 12/07/2024 N/A 22013-Malxpmdh Plate 12/07/2024 N/A 18087-EIBY SKIN LESIONS, 2 TO 4 12/07/2024 N/A O7992-HSIRWHKJ DYSTROPHIC NAILS ANY # 12/07/2024 N/A Encounters Encounter Location Date Provider Diagnosis [facility] [place] [address] [place] [address] 12/07/2024 Kevin Crowder Atherosclerosis of artery of [...] X ray : Foot, right 3V 12/07/2024 34245-RWRWLBW NAIL, 1-5 12/07/2024 65478-Hpokyxsl Plate 12/07/2024 89055-JAVN SKIN LESIONS, 2 TO 4 12/07/19 25 Y4841-VBUZHIYQ DYSTROPHIC NAILS ANY # Next Appt Details Follow Up: prn, Reason: Provider Name:Kevin Crowder , 03/15/2025 02:45:00 PM, [address] [place], [address], Procedure Notes * Category Sub-Category [...] Motrin was recommended for pain or discomfort (73849), CIRCULATION: Pt was advised as to the [...] instrumentation by the physician of record - 24608, Q8 Debride Nails 1-5 Procedure: Due to [...] necessary to maintain effective symptomatic relief - 27516 Nail Reduction Nail Reduction (-27) Trimming o [...] Notes * RENELUIS LoanB:1955 (69 yo F)Acc No.[id number]:12/07/2024 Progress Notes Patient:?Davida DOWNEY Provider:?Kevin Crowder DPM :1955???Age:69 Y???Sex:Female D ate:12/07/2024 Address:[address] [place] [address] Pcp:Zachery Giordano Subjective: * Chief Complaints: * [...] Foot, AP, LAT, LO, B/L??Taken by trained?Podiatric Housekeeper Caregiver (?__ ).?Findings:?normal bone and soft tissue density [...] nail border,?TA??? Plan: * Treatment: 2.?Tinea unguium?Procedure: 41146-NLKPJWZ NAIL, 1-5 3.?Pain in left foot?Imaging: X ray : Foot, left 3V 4.?Pain in right foot?Imaging: X ray : Foot, right 3V 5.?Ingrown nail?Procedure: 01677-Yuuetcba Plate * Procedures:?Debride Nails 1-5:?Procedure:?Due to the [...] necessary to maintain effective symptomatic relief - 64701.?Keratoma Treatment:?Parring or Cutting of Benign Hyperkeratotic Lesion(s)?(-56) [...] instrumentation by the physician of record - 63907, Q8.?Nail Avulsion:?Location?Lateral nail border,?TA.?Anesthesia?2cc of 1 percent [...] Motrin was recommended for pain or discomfort (52641), CIRCULATION: Pt was advised as to the [...] DYSTROPHIC NAILS ANY #, Modifiers: XS , U060613 Avulsion Plate, Modifiers: XS , DQ47084 X-RAY EXAM OF LEFT FOOT 3V, Modifiers: 26 , PW93299 X-RAY EXAM OF RIGHT FOOT 3V, Modifiers: 26 , [id number] DEBRIDE NAIL, 1-5, Modifiers: XS 77479 TRIM SKIN LESIONS, 2 TO 4, Modifiers: [...] exercise to failure, expense, systemic complications, infection, tqmedct-ceo-idxswnt, prolongued postop course. Patient questions re: the various treatment options available, their successes and potential failures, and fci effects were discussed and the answers were [...] time worn until they are using them multimedia project manager and in all activities. They were asked [...] Provider:?Kevin Crowder DPM Date:?2024 Generated for Елена linda/Kallie/Juancarlos on:?01/25/2025 07:32 PM EST History and Physical Notes * [...] LAT, LO, B/L Taken by trained Podiatric Housekeeper Caregiver ( __ ) Clinical Indication(s): Evaluate for Fra cture, Evaluate Biomechanical Deformity
--- OUTSIDE RECORDS SUMMARY | 2025-01-25 19:33 | XMS_ITS ---
Author Organization [facility] Address [address] [place] [address] Care Team Providers Care Scientific Aide Name Role Phone Wil ALBERTS, Annalee Justice Primary Care Provider Un available Kevin Crowder Unavailable [phone] Isabelle Schmid [phone] REASON FOR VISIT sooner appt Encounters Encounter Location Date Provider Diagnosis [facility] [address] [place] [address] 12/16/2024 Isaeblle Schmid Plan Of Treatment Next Appt Details Provider Name:Kevin Crowder , 03/15/2025 02:45:00 PM, [address] [place] [address], [address], Progress Notes * Donald RUIZaDOB:1955 (69 yo F)Acc No.[id number]:12/16/2024 Progress Notes Patient:?Davida RUIZ Provider:?Isabelle Schmid DPM :1955???Age:69 Y???Sex:Female D ate:12/16/2024 Address:[address] [place], [place] [id number] Pcp:Zachery Giordano Subjective: * Chief Complaints: * [...] DPM Date:?0 12/16/2024 Generated for Елена linda/Kallie/Juancarlos on:?01/25/2025 07:33 PM EST
== END 2025-01-25 16:59 | disposition home or self-care (01) ==
PROVIDERS: PCP Internal Medicine; Visit Provider Physician Assistant
DX: B02.29 Other postherpetic nervous system involvement (principal)

== ENCOUNTER → 2025-01-25 15:27 | Outpatient (BNVA) | payer MEDICARE, SELFPAY | PROVIDERS: PCP Internal Medicine | DX: B02.29 Other postherpetic nervous system involvement (principal) | CPT/HCPCS: 99212 ==

== ENCOUNTER 2025-02-02 11:00 | Outpatient (AMB) | payer MEDICARE, SELFPAY ==
[2025-02-02 11:25] LABS: Prothrombin Time Whole Bld POC 29.7 sec (11.1-13.5); ~PT, ~INR - Anti Coag Clinic 2.5 (0.9-1.1)
--- NOTE | 2025-02-02 11:34 | MHC.OFFVISCO ---
Intake Intake Visit Reasons: Anticoagulation Allergies Sulfa (Sulfonamide Antibiotics) [SULFA(SULFONAMIDE ANTIBIOTICS)] Allergy (Unknown, Verified 02/02/25 11:20) RASH codeine Adverse Reaction (Verified 02/02/25 11:20) Vomiting oxycodone Adverse Reaction (Verified 02/02/25 11:20) Gastrointestinal Upset Medication List - Last Reconciled 02/02/25 by Rachael Dunlap RN amiodarone 200 mg PO DAILY ascorbate calcium (vitamin C) 500 mg PO DAILY bumetanide 1 mg (1/2 x 2 mg) PO DAILY cholecalciferol (vitamin D3) 10 mcg PO DAILY gabapentin 600 mg (2 x 300 mg) PO Q8H 30 days gabapentin 600 mg PO TID multivitamin 1 tab PO DAILY warfarin See Protocol 2.5 mg orally X5 DAYS/ 5MG X 2 DAYS ( and ); Nursing Note NO CP,SOB,DIET/MED CHANGES,FALLS OR SX OF BLEEDING. PT. STATES THAT SHE HAS LESS SHINGLES PAIN AND IS STILL TAKING THE GABAPENTIN TID. CONTINUE SAME DOSE AND FOLLOW-UP IN 3 WEEKS GOOD UNDERSTANDING OF DOSING INSTR. Anti-Coag Initial Assessment Social Hx Patient Tobacco Use Status: Never used Tobacco alcohol intake: never Coding Level of Care Code Est Patient Level 1 Diagnoses Current use of anticoagulant therapy Z79.01 Assessment & Plan Assessment & Plan (1) Current use of anticoagulant therapy: Code(s): Z79.01 - item processing clerk (current) use of anticoagulants Category: Medical
--- OUTSIDE RECORDS SUMMARY | 2025-02-02 12:55 | XMS_ITS | Clinical Summary ---
Author Organization [facility] Address [address] [address] Care Team Providers Care Heat Set Operator Name Role Phone Dena Gore MD Primary Care Provider [phone] Allergies Active Allergy Reactions Criticality Noted Date [...] require that she be seen at the [facility] but she should definitely be quarantined since onset of her symptoms Friday for 14 days. Patient works at [employer] and would like a note for work [...] disease of the hips bilaterally, referral to [facility] orthopedics for consultation question management. The [...] prior to testing. Until then, can try jllm-lvp-ueltydc antihistamine such as generic versions of Margy, [...] age to complete this topic Insurance [facility] Care Teams Heat Set Operator Relationship Specialty Start Date End Date Dena Gore MD [address] [place] [address] PCP - General Internal Medicine 03/13/22
--- OUTSIDE RECORDS SUMMARY | 2025-02-02 12:55 | XMS_ITS ---
Author Organization [facility] Address [address] [place] [address] Care Team Providers Care Textile Technologist Name Role Phone Wil ALBERTS, Annalee Justice Primary Care Provider Un available Kevin Crowder Unavailable [phone] Isabelle Schmid [phone] REASON FOR VISIT sooner appt Encounters Encounter Location Date Provider Diagnosis [facility] [address] [place] [address] 12/16/2024 Isabelle Schmid Plan Of Treatment Next Appt Details Provider Name:Kevin Crowder , 03/15/2025 02:45:00 PM, [address] [place] [address], [address], Progress Notes * Donald RUIZaDOB:1955 (69 yo F)Acc No.[id number]:12/16/2024 Progress Notes Patient:?Davida RUIZ Provider:?Isabelle Schmid DPM :1955???Age:69 Y???Sex:Female D ate:12/16/2024 Address:[address] [place], [place] [id number] Pcp:Zachery Giordano Subjective: * Chief Complaints: * [...] DPM Date:?0 12/16/2024 Generated for Елена linda/Kallie/Juancarlos on:?02/02/2025 12:54 PM EDT
--- OUTSIDE RECORDS SUMMARY | 2025-02-02 12:55 | XMS_ITS ---
Author Organization [facility] Address [address] [place] [address] Care Team Providers Care Knot Picker Cloth Name Role Phone Wil ALBERTS, Annalee Justice Primary Care Provider Un available Kevin Crowder Unavailable [phone] REASON FOR VISIT comfort plus 9 9 half Encounters Encounter Location Date Provider Diagnosis [address] [address] 12/07/2024 Kevin Crowder Plan Of Treatment Next Appt Details Provider Name:Kevin Crowder , 03/15/2025 02:45:00 PM, [address] [place], [address], Progress Notes * Donald RUIZIlaB:1955 (69 yo F)Acc No.[id number]:12/07/2024 Patient:?Davida RUIZ :1955???Age:69 Y???Sex:Female Address:[address] [place] [address], [address] * true * Date:? Generated for Johanni alexei/Kallie/eTransmitting on:?02/02/2025 12:54 PM EDT
--- OUTSIDE RECORDS SUMMARY | 2025-02-02 12:55 | XMS_ITS | Patient Health Record ---
Author Organization [facility] Clarisa Vangley Address [address] [facility] [place] [address] Care Team Providers Care Water Valve Mechanic Name Role Phone Wil ALBERTS, Annalee Justice Primary Care Provider Un available LakeshaKevin hill Unavailable [phone] Schmid Isabelle Unavailable [phone] Allergies Allergen (clinical drug ingredient) Drug/Non Drug [...] Problem Status W/U Status Risk Notes Problem Bilateral atherosclerosis of arteries of lower limbs (disorder) (34884306417723087 ) Atherosclerosis of artery of both lower extremities (I70.203) Active confirmed Q7(A), Q8(2B), Q9(1B,2 C) Problem Osteoarthritis of midtarsal joint of left foot (7496131081496056) Osteoarthritis of midtarsal joint of left foot (M19.072) Active confirmed Problem Osteoarthritis of midtarsal joint of right foot (0225240655382005) Osteoarthritis of midtarsal joint of right foot (M19.071) Active confirmed Vital Signs Height 5 ft 5 in in 12/07/2024 Weight 232 lbs 12/07/2024 BMI 38.6 kg/m2 12/07/2024 Procedures Procedure Date Ordered Date Performed Result Body Sit e 02504-HQXFFIM NAIL, 1-5 12/07/2024 N/A 36946-Mfxbpjus Plate 12/07/2024 N/A 25296-DYGM SKIN LESIONS, 2 TO 4 12/07/2024 N/A W0185-USBBJFOY DYSTROPHIC NAILS ANY # 12/07/2024 N/A Encounters Encounter Location Date Provider Diagnosis [address] [address] 12/07/2024 Kevin Crowder Atherosclerosis of artery of [...] right foot M19.071 and Ingrown nail L60.[address] [address] 10/11/2024 Isabelle Schmid [facility] [place] [address] 12/07/2024 Kevin Crowder Assessments Encounter Date Diagnosis [...] X ray : Foot, right 3V 03/21/2021 38593-MSOMXOY NAIL, 1-5 12/07/2024 39749-Ordpdihn Plate 12/07/2024 00674-SPUP SKIN LESIONS, 2 TO 4 12/07/19 25 I8871-ZDEOJDMT DYSTROPHIC NAILS ANY # X ray : Ankle, right 3V 03/21/2021 Next Appt Details Provider Name:Kevin Crowder , 03/15/2025 02:45:00 PM, [address] [place], [address], Insurance Providers Payer Name Payer Address Payer Phone Subscriber Number Group Number Insured Name Patient Relationship to Insured Coverage Start Date Coverage End Date Medicare National Govt Svcs Inc [address] [place] [address] [id number] Davida Downey Self - patient is the insured 1 [employer] [address] [place] [address] [id number] Joseomaira Davida Self - patient is the insured Medical (General) History Medical History History ICD Code Back,Hip,and Knee pain Broken bones Diverticulosis Headaches/Migraines Poor circulation Vascular phlebitis (clots) Measles Chicken pox Arthritis Heart disease Kidney disease Sciatica Restless leg syndrome Surgical History Surgery Date(Month/Year) hysterectomy 02/2000 cardiac catheterization 2020 Hospitalization History Reason Date(Month/Year) C -AFib/ Kidney Failure 08/2020
== END 2025-02-02 11:41 | disposition home or self-care (01) ==
LOC: HO.ACS 11:00
PROVIDERS: PCP Internal Medicine; Visit Provider Internal Medicine
DX: Z79.01 Long term (current) use of anticoagulants (principal)

== ENCOUNTER 2025-02-02 12:38 | Outpatient (AMB) | payer MEDICARE, SELFPAY ==
[2025-02-02 13:04] VITALS: BP 110/70; PULSE 57; RESP 15; TEMP 36.5; O2SAT 96; BMI 39.8
--- NOTE | 2025-02-02 13:04 | A.OFFPC_ITS ---
Vital Signs 02/02/25 13:04 Height 5 ft 5 in Weight 239 lb BMI 39.8 BP 110/70 Blood Pressure Location Lt brachial Position Sitting Respiration 15 Pulse 57 Pulse Source Pulse Oximeter Temp 97.7 F Temp Source Oral Pulse Oximetry (%) 96 Oxygen Delivery Method Room Air Intake Visit Reasons: shingles not improving Intake Note: Pt is here today c/o shingles not improving Allergies Sulfa (Sulfonamide Antibiotics) [SULFA(SULFONAMIDE ANTIBIOTICS)] Allergy (U nknown, Verified 02/02/25 13:18) RASH codeine Adverse Reaction (Verified 02/02/25 13:18) Vomiting oxycodone Adverse Reaction (Verified 02/02/25 13:18) Gastrointestinal Upset Medication List - Last Reconciled 02/02/25 by Annalee De La Torre MD amiodarone 200 mg PO DAILY ascorbate calcium (vitamin C) 500 mg PO DAILY bumetanide 1 mg (1/2 x 2 mg) PO DAILY cholecalciferol (vitamin D3) 10 mcg PO DAILY gabapentin 600 mg PO TID multivitamin 1 tab PO DAILY warfarin See Protocol 2.5 mg orally X5 DAYS/ 5MG X 2 DAYS ( and ); Tobacco use date assessed: 02/02/25 Fall risk assessment: 1 Fall in past year Last assessed Fall Risk: 02/02/25 Dental Screening Dental Screen Date: 12/31/24 HPI shingles not improving HPI Details 69-year-old lady with history of shingle s diagnosed 12/15/2024, currently on gabapentin 600 mg 3 times a day, here today complaining of intermittent sharp pain on left mid back, aggravated by movement. Denies any accompanying fever, no chills, no shortness of breath, no cough, no rash overlying area of concern. Patient denies any history of trauma or strenuous exertion. Patient also is concerned that she has a strong family history of breast cancer, and wants to be seen by an oncologist for possible genetic testing. She has 2wo sisters diagnosed with breast cancer at age 58 and age 65, 1 maternal cousin in 1 maternal aunt also were diagnosed with breast cancer in their early 50s. She has been getting yearly mammograms , all of which came back with benign findings. [facility] Medical History (Updated 02/02/25 @ 13:31 by Annalee De La Torre MD) Family history of breast cancer in first degree relative Rib pain on left side History of kidney stones Dyslipidemia Osteoporosis Impaired fasting glucose Vaccine refused by patient Elevated brain natriuretic peptide (BNP) level Anemia Morbid obesity Iliotibial band syndrome Lumbosacral radiculopathy due to osteoarthritis of spine History of deep vein thrombophlebitis of lower extremity Positive ALVIN (antinuclear antibody) CKD (chronic kidney disease) stage 3, GFR 30-59 ml/min Osteoarthritis of right ankle and foot Postmenopausal Venous insufficiency of both lower extremities Diverticulitis Peripheral vascular complication of surgical procedure Peripheral vascular disease Hyperlipidemia DVT (deep venous thrombosis) Diastolic heart failure Paroxysmal A-fib BERE (obstructive sleep apnea) Surgical History History of lithotripsy History of cardiac cath Hx of vascular surgery H/O hysterectomy for benign disease Family History Father Emphysema, unspecified Mother No problems noted. Brother Atrial fibrillation Sister Atrial fibrillation Sister Breast cancer Social History Household Members: None Housing: House Do you presently have visiting nurse or other home services: No Alcohol intake: never Patient Tobacco Use Status: Never used Tobacco e-Cigarette/Vaping Use: Never Used service: No Current occupational status: retired and disabled Current occupation: rt handed Cognitive needs: No Hearing needs: No Vision needs: Yes Questionnaire PHQ-9 Over the last 2 weeks, how often have you been bothered by any of the following problems? 1. Little interest or pleasure in doing things: not at all 2. Feeling down, depressed, or hopeless: not at all 3. Trouble falling or staying asleep, or sleeping too much: nearly every day 4. Feeling tired or having little energy: several days 5. Poor appetite or overeating: not at all 6. Feeling bad about yourself - or that you are a failure or have let yourself or your family down: not at all 7. Trouble concentrating on things, such as reading the newspaper or watching television: not at all 8. Moving or speaking so slowly that other people could have noticed. Or the opposite - being so fidgety or restless that you have been moving around a lot more than usual: not at all 9. Thoughts that you would be better off or of hurting yourself in some way: not at all Total score: 4 Depression Screening Interpretation: Negative Depression Screening Done: Yes 36493 - PHQ-9 Billing: Yes Source: Developed by Drs. Tc Noonan, Janet Hinojosa, Isael Andrews and colleagues, with an educational tha from [employer]. Thrive Questionnaire Date Thrive assessed: 02/02/25 I am a: Patient What is your living situation today?: I have a steady place to live Within the past 12 months, did the food you bought not last and you didn't have the money to get more?: Sometimes True Within the past 12 months, did you worry whether your food would run out before you got money to buy more?: Sometimes True Do you have trouble paying for medicines?: No Do you have trouble getting transportation to medical appointments?: No Do you have trouble paying your heating and electricity bill?: No Do you have trouble taking care of your child, family member or friend?: No Do you have trouble with day-to-day activities such as bathing, preparing meals, shopping, managing finances, etc.?: No Are you currently unemployed and looking for a job?: No Are you interested in more education?: No Please select the resources that you would like help with: None Currently or been in a relationship where the following occur: No concerns reported THRIVE Score: 2 AUDIT C Alcohol Use Questionnaire (AUDIT-C) 1. How often do you have a drink containing alcohol?: Never Total Score: 0 KELLEY-7 AMB Questionnaire KELLEY-7 Date KELLEY - 7 assessed: 02/02/25 Feeling nervous, anxious, or on edge: 0 = Not at all Not being able to stop or control worryin = Not at all Worrying too much about different things: 0 = Not at all Trouble relaxin = Not at all Being so restless that it is hard to sit still: 0 = Not at all Becoming easily annoyed or irritable: 0 = Not at all Feeling afraid as if something awful might happen: 0 = Not at all Total KELLEY-7 score (0-4 normal; 5-9 mild; 10-14 moderate; 15-21 severe): 0 Source: Developed by Drs. Tc Noonan, Janet Hinojosa, Isael Andrews and colleagues, with an educational tha from [employer]. KELLEY-7 Assessment Billing KELLEY-7 Assessment Tool: KELLEY-7 Assessment 75374 Review of Systems Const All systems reviewed & are unremarkable except as noted in HPI and below Physical exam (Primary Care) Vital Signs: Last Vital Signs Temp 97.7 F 02/02/25 13:04 Pulse 57 02/02/25 13:04 Resp 15 02/02/25 13:04 BP 110/70 02/02/25 13:04 Pulse Ox 96 02/02/25 13:04 Oxygen Delivery Method Room Air 02/02/25 13:04 BMI result Body Mass Index 39.8 Tobacco/Smoking Status: Tobacco use Status Tobacco use date assessed 02/02/25 02/02/25 13:11 Patient Tobacco Use Status Never used Tobacco 02/02/25 13:11 e-Cigarette/Vaping Use Never Used 02/02/25 13:11 PHQ-9: PHQ-9 Score PHQ-9: Total score 4 02/02/25 13:40 Depression Screening Interpretation: Negative Thrive Assessment: Date of Thrive Assessment Date Thrive assessed 02/02/25 02/02/25 13:11 Currently or been in a relationship where the following occur: No concerns reported Const Other: Alert oriented x3, no acute distress noted ambulatory normal gait Orientation/consciousness: patient oriented x3 [facility] Head: Yes normocephalic Ears: external ears normal General nose exam: Normal external nose present Face and sinus: Yes face symmetric Mouth: Normal oral and palatal mucosa present and moist mucous membranes Neck Neck: Yes full ROM, Yes no lymphadenopathy and Yes supple Chest Other: Pinpoint tenderness on palpation over left posterior rib at the level of T5 and T6, a long left posterior axillary line. No rash overlying area no increased warmth. Resp Auscultation: clear to auscultation bilaterally Cardio Other: S1-S2 present regular rate and rhythm GI Palpation (GI): Soft to palpation, nontender, no guarding and no masses Skin General skin exam: no rashes or lesions noted Neuro General: patient oriented x3, gait normal, tone normal, moves all extremities, Normal light touch and pain sensation and no focal motor deficits Coding Level of Care Code Est Pt Level 4 (02475) Diagnoses Rib pain on left side R07.81 Family history of breast cancer in first degree relative Z80.3 Post herpetic neuralgia B02.29 Additional Codes PHQ-9 - 02843 - PHQ-9 Billing: Yes ([id number]) KELLEY-7 Assessment Billing - KELLEY-7 Assessment Tool: KELLEY-7 Assessment 72526 ([id number]) Assessment & Plan Assessment & Plan (1) Rib pain on left side: Code(s): R07.81 - Pleurodynia Category: Medical Plan: X-ray of left posterior rib ordered, advised to apply Salonpas patch with lidocaine to affected area twice a day. (2) Family history of breast cancer in first degree relative: Comment: Two sisters diagnosed with breast cancer at age 58 and age 65, 1 maternal c ousin in 1 maternal aunt also were diagnosed with breast cancer Code(s): Z80.3 - Family history of malignant neoplasm of breast Category: Medical Plan: Referred to Oncology Clinic to see if genetic testing is indicated (3) Post herpetic neuralgia: Comment: Patient's most recent visits regarding her shingles are reviewed. Code(s): B02.29 - Other postherpetic nervous system involvement Category: Medical Plan: Resolving, decrease gabapentin dose now to 600 mg twice a day Orders: Referrals Hematology & Oncology Referral Z80.3 - Family history of malignant neoplasm of breast
--- OUTSIDE RECORDS SUMMARY | 2025-02-02 14:42 | XMS_ITS | Clinical Summary ---
Author Organization [facility] Facility Address [address] [address] Care Team Providers Care Accounting Software Specialist Name Role Phone Dena Gore MD Primary Care Provider [phone] Allergies Active Allergy Reactions Criticality Noted Date [...] require that she be seen at the [facility] but she should definitely be quarantined since onset of her symptoms Friday for 14 days. Patient works at [employer] and would like a note for work [...] disease of the hips bilaterally, referral to [facility] orthopedics for consultation question management. The Celebrex [...] prior to testing. Until then, can try fkge-shk-twyrkrd antihistamine such as generic versions of Margy, [...] age to complete this topic Insurance MEDICARE [facility] MEDICARE [facility] Care Teams Accounting Software Specialist Relationship Specialty Start Date End Date Dena Gore MD [address] [place] [address] PCP - General Internal Medicine 03/13/22
--- OUTSIDE RECORDS SUMMARY | 2025-02-02 14:42 | XMS_ITS ---
Author Organization [facility] Clarisa flores [place] Address [address] [facility] [place] [address] Care Team Providers Care Assault Amphibious Vehicle Crewman Name Role Phone Wil ALBERTS, Annalee Justice Primary Care Provider Un available Kevin Crowder Unavailable [phone] Allergies Allergen (clinical drug ingredient) Drug/Non Drug [...] atherosclerosis of arteries of lower limbs (disorder) (27899242376649114 ) Atherosclerosis of artery of both lower extremities (I70.203) Active confirmed Q7(A), Q8(2B), Q9(1B,2 C) Problem Osteoarthritis of midtarsal joint of left foot (6721617417503391) Osteoarthritis of midtarsal joint of left foot (M19.072) Active confirmed Problem Osteoarthritis of midtarsal joint of right foot (5786427546439031) Osteoarthritis of midtarsal joint of right foot (M19.071) Active confirmed Vital Signs Height 5 ft 5 in in 12/07/2024 Weight 232 lbs 12/07/2024 BMI 38.6 kg/m2 12/07/2024 Procedures Procedure Date Ordered Date Performed Result Body Sit e 22075-MIEMKHD NAIL, 1-5 12/07/2024 N/A 16813-Ksymcwdb Plate 12/07/2024 N/A 20491-SQSX SKIN LESIONS, 2 TO 4 12/07/2024 N/A O9227-DNABVESM DYSTROPHIC NAILS ANY # 12/07/2024 N/A Encounters Encounter Location Date Provider Diagnosis [facility] [address] [address] 12/07/2024 Kevin Crowder Atherosclerosis of artery of [...] X ray : Foot, right 3V 12/07/2024 90460-SPEZGPQ NAIL, 1-5 12/07/2024 15944-Buwjjhsk Plate 12/07/2024 71912-WQXF SKIN LESIONS, 2 TO 4 12/07/19 25 J7700-XPICSWJT DYSTROPHIC NAILS ANY # Next Appt Details Follow Up: prn, Reason: Provider Name:Kevin Crowder , 03/15/2025 02:45:00 PM, [address] [place] [address], [id number], Procedure Notes * Category Sub-Category Detail Notes [...] Motrin was recommended for pain or discomfort (17443), CIRCULATION: Pt was advised as to the [...] instrumentation by the physician of record - 25586, Q8 Debride Nails 1-5 Procedure: Due to [...] necessary to maintain effective symptomatic relief - 02441 Nail Reduction Nail Reduction (-27) Trimming o [...] tissue - G0127, Q8 Progress Notes * Donald DOWNEYIlaB:1955 (69 yo F)Acc No.[id number]:12/07/2024 Progress Notes Patient:Davida ESPARZA Provider:?Kevin Crowder DPM :1955???Age:69 Y???Sex:Female D ate:12/07/2024 Address:[address] [place], [place] [id number] Pcp:Zachery Giordano Subjective: * Chief Complaints: * [...] 02/2000cardiac catheterization 2020 * Hospitalization/Major Diagno stic Procedure:?[facility] -AFib/ Kidney Failure 08/2020 * Family History:?Mother: [...] k.23 kg. * Examination: ???Vascular: ?DP PULSES (B):?1/4, B/L.?PT PULSES (B):?0/4, B/L.?CAPILLARY FILL TIME:?delayed, all [...] Foot, AP, LAT, LO, B/L??Taken by trained?Podiatric Tmd Teacher Assistant (?__ ).?Findings:?normal bone and soft tissue density [...] nail border,?TA??? Plan: * Treatment: 2.?Tinea unguium?Procedure: 63220-KYSILLL NAIL, 1-5 3.?Pain in left foot?Imaging: X ray : Foot, left 3V 4.?Pain in right foot?Imaging: X ray : Foot, right 3V 5.?Ingrown nail?Procedure: 39446-Lvytddas Plate * Procedures:?Debride Nails 1-5:?Procedure:?Due to the [...] necessary to maintain effective symptomatic relief - 78220.?Keratoma Treatment:?Parring or Cutting of Benign Hyperkeratotic Lesion(s)?(-56) [...] instrumentation by the physician of record - 82786, Q8.?Nail Avulsion:?Location?Lateral nail border,?TA.?Anesthesia?2cc of 1 percent [...] Motrin was recommended for pain or discomfort (34105), CIRCULATION: Pt was advised as to the [...] DYSTROPHIC NAILS ANY #, Modifiers: XS , [id number] Avulsion Plate, Modifiers: XS , [id number] X-RAY EXAM OF LEFT FOOT 3V, Modifiers: 26 , GT56149 X-RAY EXAM OF RIGHT FOOT 3V, Modifiers: 26 , [id number] DEBRIDE NAIL, 1-5, Modifiers: XS 67193 TRIM SKIN LESIONS, 2 TO 4, Modifiers: [...] exercise to failure, expense, systemic complications, infection, [id number]-xin-mbjifju, prolongued postop course. Patient questions re: the various treatment options available, their successes and potential failures, and half-way effects were discussed and the answers were [...] worn until they are using them multimedia services coordinator and in all activities. They were asked [...] Crowder DPM Date:?2024 Generated for Елена linda/Kallie/Kaushalitting on:?02/02/2025 12:54 PM EDT History and Physical Notes * HPI (History [...] LAT, LO, B/L Taken by trained Podiatric Tmd Teacher Assistant ( __ ) Clinical Indication(s): Evaluate for Fra cture, Evaluate Biomechanical Deformity
== END 2025-02-02 14:01 | disposition home or self-care (01) ==
LOC: HO.HMCC 12:38
PROVIDERS: PCP Internal Medicine; Visit Provider Internal Medicine
DX: R07.81 Pleurodynia (principal); Z80.3 Family history of malignant neoplasm of breast; B02.29 Other postherpetic nervous system involvement

== ENCOUNTER 2025-02-02 13:46 | Outpatient (REF) | payer MEDICARE, SELFPAY ==
--- NOTE | ~2025-02-02 | XR_ITS ---
EXAMINATION: XR RIBS, LEFT CLINICAL INFORMATION: R07.81 - Pleurodynia COMPARISON: 09/12/2022. CT angiogram chest 12/15/2024. TECHNIQUE: PA chest, and 3 views of the left ribs were obtained. FINDINGS: Chest radiograph demonstrates mild cardiomegaly. There is aortic mural calcification and mild tortuosity. Normal hilar contours and mediastinal contours. Lungs are clear bilaterally without consolidation or effusion. No pneumothorax. Dedicated left rib views demonstrate no fracture or focal rib abnormality. Soft tissues appear normal. There are spinal degenerative changes. XR/XR ribs LT min 3V w CXR1V IMPRESSION: 1. Mild cardiac enlargement. No active pulmonary disease. 2. No abnormal findings in the left ribs. Electronically signed by: Marquise Treviño MD 02/03/2025 08:28 AM EDT
--- OUTSIDE RECORDS SUMMARY | 2025-02-02 16:15 | XMS_ITS | Clinical Summary ---
Author Organization [facility] Facility Address [address] [address] Care Team Providers Care Waste Management Engineer Name Role Phone Dena Gore MD Primary Care Provider [phone] Allergies Active Allergy Reactions Criticality Noted Date [...] require that she be seen at the [facility] but she should definitely be quarantined since onset of her symptoms Friday for 14 days. Patient works at [employer] and would like a note for work [...] disease of the hips bilaterally, referral to [facility] orthopedics for consultation question management. The [...] prior to testing. Until then, can try thvy-ahb-gbctepb antihistamine such as generic versions of Margy, [...] age to complete this topic Insurance MEDICARE [facility] MEDICARE [facility] Care Teams Waste Management Engineer Relationship Specialty Start Date End Date Dena Gore MD [address] [place] [address] PCP - General Internal Medicine 03/13/22
== END 2025-02-02 13:47 | disposition home or self-care (01) ==
LOC: HO.HMGCX 13:46
PROVIDERS: PCP Internal Medicine; Visit Provider Internal Medicine
DX: R07.81 Pleurodynia (principal); B02.29 Other postherpetic nervous system involvement; Z80.3 Family history of malignant neoplasm of breast; I48.0 Paroxysmal atrial fibrillation; Z51.81 Encounter for therapeutic drug level monitoring; Z79.01 Long term (current) use of anticoagulants
CPT/HCPCS: 71101; 85610; 96127; 99211; 99212

== ENCOUNTER → 2025-02-02 14:03 | Outpatient (BNV) | payer MEDICARE, SELFPAY | PROVIDERS: PCP Internal Medicine; Visit Provider Radiology Diagnostic Radiology | DX: R07.81 Pleurodynia (principal) | CPT/HCPCS: 71101 ==

== ENCOUNTER 2025-02-16 08:19 | Outpatient (REF) | payer MEDICARE, SELFPAY ==
--- NOTE | ~2025-02-16 | XR_ITS ---
EXAMINATION: XR KNEE, LEFT CLINICAL INFORMATION: M25.562 - Pain in left knee COMPARISON: December 10, 2024. TECHNIQUE: 2 views of the left knee. FINDINGS: Joint space narrowing involving the medial lateral compartments with associated chondrocalcinosis. Marginal osteophyte formation and lateral femoral condyles and lateral tibial plateau. No acute cortical disruption. No lytic or blastic lesions. XR/XR knee LT 2V IMPRESSION: Tricompartmental osteoarthrosis, mild to moderate. Electronically signed by: Terrence Ko MD 02/16/2025 03:14 PM EDT
== END 2025-02-16 08:20 | disposition home or self-care (01) ==
LOC: HO.HOSX 08:19
PROVIDERS: Visit Provider Physician Assistant
DX: M17.12 Unilateral primary osteoarthritis, left knee (principal)
CPT/HCPCS: 73560; 99212

== ENCOUNTER 2025-02-16 11:28 | Outpatient (AMB) | payer MEDICARE, SELFPAY ==
[2025-02-16 11:45] VITALS: BMI 39.8
--- NOTE | 2025-02-16 11:45 | MHC.OFFVIS ---
Vital Signs 02/16/25 11:45 Height 5 ft 5 in Weight 239 lb BMI 39.8 Intake Visit Reasons: New Problem- LT Knee Pain Intake Note: Davida is a 69 year old female who presents today for a new patient evaluation of left knee pain. Patient was seen by her PCP and was referred to orthopedics for knee pain. Patient report intermittent pain with ambulation. She says every now and then her knee feels as if it is going to give out on her. She expresses her pain is on the medial and lateral side of her left knee. Hx of left knee cortisone injections roughly 7-8 years ago. She is a pre-diabetic. Hx of fall in 2023. Patient taking warfarin because of hx of blood clots. Allergies Sulfa (Sulfonamide Antibiotics) [SULFA(SULFONAMIDE ANTIBIOTICS)] Allergy (Unknown, Verified 02/16/25 11:45) RASH codeine Adverse Reaction (Verified 02/16/25 11:45) Vomiting oxycodone Adverse Reaction (Verified 02/16/25 11:45) Gastrointestinal Upset Medication List - Last Reconciled 02/16/25 by Opal Tijerina PA-C amiodarone 200 mg PO DAILY ascorbate calcium (vitamin C) 500 mg PO DAILY bumetanide 1 mg (1/2 x 2 mg) PO DAILY cholecalciferol (vitamin D3) 10 mcg PO DAILY gabapentin 600 mg PO BID multivitamin 1 tab PO DAILY warfarin See Protocol 2.5 mg orally X5 DAYS/ 5MG X 2 DAYS ( and ); HPI HPI New Problem- LT Knee Pain: Details: 69-year-old female presents to the office today for left knee pain. She has had ongoing left knee pain for quite some time which is worse with daily activities and going up and downstairs. She states the pain is located along the medial aspect of the knee which extends anteriorly. Several years ago she has had cortisone injections with little relief. No other treatment to date. [facility] Medical History (Updated 02/16/25 @ 12:00 by Opal Tijerina PA-C) Family history of breast cancer in first degree relative Rib pain on left side History of kidney stones Dyslipidemia Osteoporosis Impaired fasting glucose Vaccine refused by patient Elevated brain natriuretic peptide (BNP) level Anemia Morbid obesity Iliotibial band syndrome Lumbosacral radiculopathy due to osteoarthritis of spine History of deep vein thrombophlebitis of lower extremity Positive ALVIN (antinuclear antibody) CKD (chronic kidney disease) stage 3, GFR 30-59 ml/min Osteoarthritis of right ankle and foot Postmenopausal Venous insufficiency of both lower extremities Diverticulitis Peripheral vascular complication of surgical procedure Peripheral vascular disease Hyperlipidemia DVT (deep venous thrombosis) Diastolic heart failure Paroxysmal A-fib BERE (obstructive sleep apnea) Surgical History History of lithotripsy History of cardiac cath Hx of vascular surgery H/O hysterectomy for benign disease Family History Father Emphysema, unspecified Mother No problems noted. Brother Atrial fibrillation Sister Atrial fibrillation Sister Breast cancer Social History Household Members: None Housing: House Do you presently have visiting nurse or other home services: No Alcohol intake: never Patient Tobacco Use Status: Never used Tobacco e-Cigarette/Vaping Use: Never Used service: No Current occupational status: retired and disabled Current occupation: rt handed Cognitive needs: No Hearing needs: No Vision needs: Yes Review of Systems Const All systems reviewed & are unremarkable except as noted in HPI and below Physical Exam Vital Signs: BMI result Body Mass Index 39.8 Const General: cooperative and no acute distress Orientation/consciousness: patient oriented x3 Resp Effort & Inspection: normal respiratory effort and able to speak in complete sentences Cardio Peripheral pulses: Peripheral pulses 2+ throughout Neuro General: patient oriented x3 Extrem Other: Left knee normal to inspection she has no joint effusion present. She has full range of motion with tenderness to the medial and lateral retropatellar portion of the knee. Calf supple nontender neurovascularly intact. Results Reviewed Results Reviewed: X-rays of the left knee obtained in the office today are significant for patella femoral arthritis. Assessment & Plan Assessment & Plan (1) Patellofemoral arthritis of left knee: Code(s): M17.12 - Unilateral primary osteoarthritis, left knee Category: Medical Plan: We discussed options today which include physical therapy, Celebrex for anti inflammation and injections. She is not interested in steroid injections however she would like to proceed with gel. I did submit for prior authorization. Once this is complete we will contact her to book an appointment. Orders: Orders XR knee LT 2V Today Opal Tijerina PA-C M25.562 - Pain in left knee XR knee RT 1V Today Opal Tijerina PA-C M25.561 - Pain in right knee PT Evaluation and Treatment Today Opal Tijerina PA-C M17.12 - Unilateral primary osteoarthritis, left knee Medications: New celecoxib (Celebrex) 200 mg PO BID 60 caps 3RF 30 days Opal Tijerina PA-C Changed From gabapentin 600 mg PO TID 90 tabs 0RF To gabapentin 600 mg PO BID Maddie Bronson PA-C Coding Level of Care Code Est Pt Level 3 (50553) Complex EM visit Add On G2211 Diagnoses Patellofemoral arthritis of left knee M17.12
== END 2025-02-16 12:56 | disposition home or self-care (01) ==
LOC: HO.HOS 11:29
PROVIDERS: PCP Internal Medicine; Visit Provider Physician Assistant
DX: M17.12 Unilateral primary osteoarthritis, left knee (principal)
CPT/HCPCS: 99213; G2211

== ENCOUNTER → 2025-02-16 11:35 | Outpatient (BNV) | payer MEDICARE, SELFPAY | PROVIDERS: Visit Provider Radiology Diagnostic Radiology | DX: M17.12 Unilateral primary osteoarthritis, left knee (principal) | CPT/HCPCS: 73560 ==

== ENCOUNTER 2025-02-21 10:57 | Outpatient (AMB) | payer MEDICARE, SELFPAY ==
[2025-02-21 11:21] LABS: Prothrombin Time Whole Bld POC 37.1 sec (11.1-13.5); ~PT, ~INR - Anti Coag Clinic 3.1 (0.9-1.1)
--- NOTE | 2025-02-21 11:26 | MHC.OFFVISCO ---
Intake Intake Visit Reasons: Anticoagulation Allergies Sulfa (Sulfonamide Antibiotics) [SULFA(SULFONAMIDE ANTIBIOTICS)] Allergy (Unknown, Verified 02/21/25 11:00) RASH codeine Adverse Reaction (Verified 02/21/25 11:00) Vomiting oxycodone Adverse Reaction (Verified 02/21/25 11:00) Gastrointestinal Upset Medication List - Last Reconciled 02/21/25 by Theresa Philip RN amiodarone 200 mg PO DAILY ascorbate calcium (vitamin C) 500 mg PO DAILY bumetanide 1 mg (1/2 x 2 mg) PO DAILY celecoxib (Celebrex) 200 mg PO BID 30 days cholecalciferol (vitamin D3) 10 mcg PO DAILY gabapentin 600 mg PO BID multivitamin 1 tab PO DAILY warfarin See Protocol 2.5 mg orally X5 DAYS/ 5MG X 2 DAYS ( and ); Nursing Note INR: 3.1 in therapeutic range of 2-3 Medications and supplements reviewed No changes in health, diet, medications, or supplements, Denies any signs and symptoms of bleeding or bruising or clotting. Bleeding, bruising, clotting discussed Nutritional guidance given to have a serving of greens today Food list reviewed Dose: 2.5mg X 5 days and 5mg X 2 days (Fri & ) F/U INR: 3 weeks Patient verbalizes understanding of instructions given Anti-Coag Initial Assessment Social Hx Patient Tobacco Use Status: Never used Tobacco alcohol intake: never Coding Level of Care Code Est Patient Level 1 Diagnoses Current use of anticoagulant therapy Z79.01 Results AMB INR Fingerstick AMB INR Fingerstick 3.1 Last Edit by Theresa Philip RN on 02/21/25 11:17 interface delay Assessment & Plan Assessment & Plan (1) Current use of anticoagulant therapy: Code(s): 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
--- OUTSIDE RECORDS SUMMARY | 2025-02-21 12:26 | XMS_ITS | Clinical Summary ---
Author Organization [facility] Facility Address [address] [address] Care Team Providers Care Diesel Engine Assembler Name Role Phone Dena Gore MD Primary Care Provider [phone] Allergies Active Allergy Reactions Criticality Noted Date [...] require that she be seen at the [facility] but she should definitely be quarantined since onset of her symptoms Friday for 14 days. Patient works at [employer] and would like a note for work [...] disease of the hips bilaterally, referral to [facility] orthopedics for consultation question management. The Celebrex [...] prior to testing. Until then, can try vlbv-gvc-xvoceeq antihistamine such as generic versions of Margy, [...] age to complete this topic Insurance [facility] Care Teams Diesel Engine Assembler Relationship Specialty Start Date End Date Dena Gore MD [address] [place] [address] PCP - General Internal Medicine 03/13/22
--- OUTSIDE RECORDS SUMMARY | 2025-02-21 12:26 | XMS_ITS ---
Author Organization [facility] Address [address] [place] [address] Care Team Providers Care Straight Truck Driver Name Role Phone Wil ALBERTS, Annalee Justice Primary Care Provider Un available Kevin Crowder Unavailable [phone] REASON FOR VISIT comfort plus 9 9 half Encounters Encounter Location Date Provider Diagnosis [address] [address] 12/07/2024 Kevin Crowder Plan Of Treatment Next Appt Details Provider Name:Kevin Crowder , 03/15/2025 02:45:00 PM, [address] [place], [address], Progress Notes * Donald RUIZIlaB:1955 (69 yo F)Acc No.[id number]:12/07/2024 Patient:?Davida RUIZ :1955???Age:69 Y???Sex:Female Address:[address] [place] [address], [address] * true * Date:? Generated for Johanni alexei/Kallie/eTransmitting on:?02/21/2025 12:26 PM EDT
--- OUTSIDE RECORDS SUMMARY | 2025-02-21 12:26 | XMS_ITS ---
Author Organization [facility] Address [address] [place] [address] Care Team Providers Care Streetcar Conductor Name Role Phone Wil ALBERTS, Annalee Justice Primary Care Provider Un available Kevin Crowder Unavailable [phone] Isabelle Schmid [phone] REASON FOR VISIT sooner appt Encounters Encounter Location Date Provider Diagnosis [facility] [address] [place] [address] 12/16/2024 Isabelle Schmid Plan Of Treatment Next Appt Details Provider Name:Kevin Crowder , 03/15/2025 02:45:00 PM, [address] [place] [address], [address], Progress Notes * Donald RUIZaDOB:1955 (69 yo F)Acc No.[id number]:12/16/2024 Progress Notes Patient:?Davida RUIZ Provider:?Isabelle Schmid DPM :1955???Age:69 Y???Sex:Female D ate:12/16/2024 Address:[address] [place], [place] [address] Pcp:Zachery Giordano Subjective: * Chief Complaints: * [...] DPM Date:?0 12/16/2024 Generated for Елена linda/Kallie/Juancarlos on:?02/21/2025 12:26 PM EDT
--- OUTSIDE RECORDS SUMMARY | 2025-02-21 12:26 | XMS_ITS | Patient Health Record ---
Author Organization [facility] Clarisa Vangley Address [address] [facility] [place] [address] Care Team Providers Care Leverman Name Role Phone Wil ALBERTS, Annalee Justice Primary Care Provider Un available LakeshaKevin hill Unavailable [phone] Schmid Isabelle Unavailable [phone] Allergies Allergen (clinical drug ingredient) Drug/Non Drug [...] atherosclerosis of arteries of lower limbs (disorder) (65031098750848673 ) Atherosclerosis of artery of both lower extremities (I70.203) Active confirmed Q7(A), Q8(2B), Q9(1B,2 C) Problem Osteoarthritis of midtarsal joint of left foot (0299514240735576) Osteoarthritis of midtarsal joint of left foot (M19.072) Active confirmed Problem Osteoarthritis of midtarsal joint of right foot (9699901917742329) Osteoarthritis of midtarsal joint of right foot (M19.071) Active confirmed Vital Signs Height 5 ft 5 in in 12/07/2024 Weight 232 lbs 12/07/2024 BMI 38.6 kg/m2 12/07/2024 Procedures Procedure Date Ordered Date Performed Result Body Sit e 83117-KILJRUO NAIL, 1-5 12/07/2024 N/A 96575-Vyxkyxjh Plate 12/07/2024 N/A 03408-PSLQ SKIN LESIONS, 2 TO 4 12/07/2024 N/A C4727-JWLEPGUM DYSTROPHIC NAILS ANY # 12/07/2024 N/A Encounters Encounter Location Date Provider Diagnosis [address] [address] 12/07/2024 Kevin Crowder Atherosclerosis of artery of [...] right foot M19.071 and Ingrown nail L60.[address] [address] 10/11/2024 Isabelle Schmid [facility] [place] [address] 12/07/2024 Kevin Crowder Assessments Encounter Date Diagnosis [...] X ray : Foot, right 3V 03/21/2021 33407-PBCCRDJ NAIL, 1-5 12/07/2024 63281-Mbimpcvp Plate 12/07/2024 03517-OPND SKIN LESIONS, 2 TO 4 12/07/19 25 Y6840-QGGDZMFR DYSTROPHIC NAILS ANY # X ray : Ankle, right 3V 03/21/2021 Next Appt Details Provider Name:Kevin Crowder , 03/15/2025 02:45:00 PM, [address] [place], [address], Insurance Providers Payer Name Payer Address Payer Phone Subscriber Number Group Number Insured Name Patient Relationship to Insured Coverage Start Date Coverage End Date Medicare National Govt Svcs Inc [address] [place] [address] [id number] Davida Downey Self - patient is the insured 1 [employer] [address] [place] [address] [id number] Joseomaira Davida Self - patient is the [...]
--- OUTSIDE RECORDS SUMMARY | 2025-02-21 12:26 | XMS_ITS ---
Author Organization [facility] Clarisa flores [place] Address [address] [facility] [place] [address] Care Team Providers Care Rn Plastic Surgery Name Role Phone Wil ALBERTS, Annalee Justice Primary Care Provider Un available Kevin Crowder Unavailable [phone] Allergies Allergen (clinical drug ingredient) Drug/Non Drug [...] atherosclerosis of arteries of lower limbs (disorder) (14996495826086368 ) Atherosclerosis of artery of both lower extremities (I70.203) Active confirmed Q7(A), Q8(2B), Q9(1B,2 C) Problem Osteoarthritis of midtarsal joint of left foot (7406272236941642) Osteoarthritis of midtarsal joint of left foot (M19.072) Active confirmed Problem Osteoarthritis of midtarsal joint of right foot (0203105452403584) Osteoarthritis of midtarsal joint of right foot (M19.071) Active confirmed Vital Signs Height 5 ft 5 in in 12/07/2024 Weight 232 lbs 12/07/2024 BMI 38.6 kg/m2 12/07/2024 Procedures Procedure Date Ordered Date Performed Result Body Sit e 90276-GFPRXQX NAIL, 1-5 12/07/2024 N/A 83184-Gpwbkaji Plate 12/07/2024 N/A 18679-ERET SKIN LESIONS, 2 TO 4 12/07/2024 N/A P3670-MRAUJYDT DYSTROPHIC NAILS ANY # 12/07/2024 N/A Encounters Encounter Location Date Provider Diagnosis [facility] [address] [address] 12/07/2024 Kevin Crowder Atherosclerosis of artery of [...] X ray : Foot, right 3V 12/07/2024 03128-DIAILUA NAIL, 1-5 12/07/2024 02268-Sehqrwkj Plate 12/07/2024 00355-ZOZR SKIN LESIONS, 2 TO 4 12/07/19 25 C2807-XHHGEILE DYSTROPHIC NAILS ANY # Next Appt Details Follow Up: prn, Reason: Provider Name:Kevin Crowder , 03/15/2025 02:45:00 PM, [address] [place] [address], [address], Procedure Notes * Category Sub-Category Detail Notes [...] Motrin was recommended for pain or discomfort (07488), CIRCULATION: Pt was advised as to the [...] instrumentation by the physician of record - 90293, Q8 Debride Nails 1-5 Procedure: Due to [...] necessary to maintain effective symptomatic relief - 76971 Nail Reduction Nail Reduction (-27) Trimming o [...] Notes * Donald DOWNEYIlaB:1955 (69 yo F)Acc No.[id number]:12/07/2024 Progress Notes Patient:Davida ESPARZA Provider:?Kevin Crowder DPM :1955???Age:69 Y???Sex:Female D ate:12/07/2024 Address:[address] [place], [place] [id number] Pcp:Zachery Giordano Subjective: * Chief Complaints: * [...] Foot, AP, LAT, LO, B/L??Taken by trained?Podiatric [facility] Sewer (?__ ).?Findings:?normal bone and soft tissue density [...] nail border,?TA??? Plan: * Treatment: 2.?Tinea unguium?Procedure: 05165-NCKDYJC NAIL, 1-5 3.?Pain in left foot?Imaging: X ray : Foot, left 3V 4.?Pain in right foot?Imaging: X ray : Foot, right 3V 5.?Ingrown nail?Procedure: 21064-Zmvkqnlm Plate * Procedures:?Debride Nails 1-5:?Procedure:?Due to the [...] necessary to maintain effective symptomatic relief - 11850.?Keratoma Treatment:?Parring or Cutting of Benign Hyperkeratotic Lesion(s)?(-56) [...] instrumentation by the physician of record - 21778, Q8.?Nail Avulsion:?Location?Lateral nail border,?TA.?Anesthesia?2cc of 1 percent [...] Motrin was recommended for pain or discomfort (93621), CIRCULATION: Pt was advised as to the [...] DYSTROPHIC NAILS ANY #, Modifiers: XS , C541953 Avulsion Plate, Modifiers: XS , OD52572 X-RAY EXAM OF LEFT FOOT 3V, Modifiers: 26 , YC10705 X-RAY EXAM OF RIGHT FOOT 3V, Modifiers: 26 , [id number] DEBRIDE NAIL, 1-5, Modifiers: XS 77686 TRIM SKIN LESIONS, 2 TO 4, Modifiers: [...] exercise to failure, expense, systemic complications, infection, jpikqvq-vdb-zavdjvl, prolongued postop course. 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 They were asked [...] Crowder DPM Date:?2024 Generated for Елена linda/Kallie/Juancarlos on:?02/21/2025 12:25 PM EDT History and Physical Notes * [...] painful 1st Met-Cuneiform joint with inflammation, B/L FOOTWEAR EVALUATION: shoe gear propertie s exacerbate patients foot/toe deformity MUSCLE STRENGTH: 5/5 [...] LAT, LO, B/L Taken by trained Podiatric [facility] Sewer ( __ ) Clinical Indication(s): Evaluate for Fra cture, Evaluate Biomechanical Deformity
== END 2025-02-21 11:30 | disposition home or self-care (01) ==
LOC: HO.ACS 10:57
PROVIDERS: PCP Internal Medicine; Visit Provider Internal Medicine Medical Oncology
DX: Z79.01 Long term (current) use of anticoagulants (principal)

== ENCOUNTER → 2025-02-21 10:57 | Outpatient (BNVA) | payer MEDICARE, SELFPAY | PROVIDERS: PCP Internal Medicine; Visit Provider Internal Medicine Medical Oncology | DX: I48.0 Paroxysmal atrial fibrillation (principal); Z51.81 Encounter for therapeutic drug level monitoring; Z79.01 Long term (current) use of anticoagulants | CPT/HCPCS: 85610; 99211 ==

== ENCOUNTER 2025-02-23 10:41 | Outpatient (AMB) | payer MEDICARE, SELFPAY ==
--- NOTE | 2025-02-23 10:52 | A.OFFVIS_ITS ---
Vital Signs 02/23/25 10:56 Height 5 ft 4.25 in Weight 237 lb 14.06 oz BMI 40.5 BP 138/74 Blood Pressure Location Rt brachial Position Sitting Pulse 49 L Pulse Source Pulse Oximeter Pulse Oximetry (%) 95 Oxygen Delivery Method Room Air Intake Visit Reasons: Osteoporosis Intake Note: New patient referred by PCP for Osteoporosis. 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 Accompanied by: Friend Allergies Sulfa (Sulfonamide Antibiotics) [SULFA(SULFONAMIDE ANTIBIOTICS)] Allergy (Unknown, Verified 02/23/25 10:56) RASH codeine Adverse Reaction (Verified 02/23/25 10:56) Vomiting oxycodone Adverse Reaction (Verified 02/23/25 10:56) Gastrointestinal Upset Medication List - Last Reconciled 02/23/25 by Tc Villa MD amiodarone 200 mg PO DAILY ascorbate calcium (vitamin C) 500 mg PO DAILY bumetanide 1 mg (1/2 x 2 mg) PO DAILY celecoxib (Celebrex) 200 mg PO BID 30 days cholecalciferol (vitamin D3) 10 mcg PO DAILY gabapentin 600 mg PO BID multivitamin 1 tab PO DAILY warfarin See Protocol 2.5 mg orally X5 DAYS/ 5MG X 2 DAYS ( and ); HPI Comments Details: 69 YO Female is seen in consultation at the request of PCP for Osteoporosis.The patient is a 69-year-old female presenting with osteoporosis. Osteoporosis diagnosis was established a few years back, with no specific treatment initiated based on past reporting. A prior fracture from a fall over a steel peg occurred in 2001, causing severe chronic pain. She notes a distinct reduction in her height from 5'7 to now roughly 4'5 . Activities and movements impact her osteoporosis discomfort. A total hysterectomy was performed in 1999 due to familial cancer risk. Kidney stones have presented recurrently. Past smoking was stopped three decades ago and there is no alcohol consumption. Family history lacks osteoporosis or hip fracture documentation. First diagnosed in recently .Not seen specialist before Not Received treatment in the past . - Calcium supplementation (discontinued previously) - No routine prior medications specific to osteoporosis management noted No history of pathologic fracture but fxed foot in 1999 due to hard fall or ONJ. Has several servings of dietary calcium per day in the form of cheese, broccoli , ice cream . Not Takes Calcium supplement . Takes 400 IU of Vitamin D daily. The patient does not regularly consume cereal and has difficulty assessing her calcium intake due to challenges with small print on labels. She has experienced a decrease in visual acuity over time and requires glasses for clarity. The focus remains on ensuring adequate dietary calcium intake, aiming for an intake of approximately 1200 mg, potentially through Citracal Denies ever using PPI,+ anticoagulant, antiepileptic or glucocorticoid medication. 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 Not UTD on dental cleanings and sees dentist every 6 months. No planned upcoming dental work or extractions. ex-tabacco use no ETOH use DXA dated 10/20/24 :FINDINGS: LEFT FEMUR, NECK: Current: BMD 0.639 g/cm2, Z-score -2.0, T-score -2.9, osteoporosis. Baseline: BMD 0.603 g/cm2. LEFT FEMUR, TOTAL: Current: BMD 0.730 g/cm2, Z-score -1.7, T-score -2.2, osteopenia, 9.2% decrease from baseline (<5% change is not significant). Baseline: BMD 0.804 g/cm2. AP SPINE L1-L4: Current: BMD 0.825 g/cm2, Z-score -2.5, T-score -3.0, osteoporosis, 5.3% decrease from baseline (<5% change is not significant). Baseline: BMD 0.871 g/cm2. IDENTIFIED RISK FACTORS: Early menopause, secondary osteoporosis, osteoporosis, recurrent falls, height loss, bilateral oophorectomy, hysterectomy, kidney disease. HISTORY OF FRACTURE: None listed. MEDICATIONS: Multivitamin. MM/XR DEXA axial skeleton IMPRESSION: 1. DIAGNOSIS: Osteoporosis based on the lowest T-score value of -3.0 in the lumbar spine applying World Health Organization criteria. Labs: [facility] Medical History (Updated 02/16/25 @ 12:00 by Opal Tijerina PA-C) Family history of breast cancer in first degree relative Rib pain on left side History of kidney stones Dyslipidemia Osteoporosis Impaired fasting glucose Vaccine refused by patient Elevated brain natriuretic peptide (BNP) level Anemia Morbid obesity Iliotibial band syndrome Lumbosacral radiculopathy due to osteoarthritis of spine History of deep vein thrombophlebitis of lower extremity Positive ALVIN (antinuclear antibody) CKD (chronic kidney disease) stage 3, GFR 30-59 ml/min Osteoarthritis of right ankle and foot Postmenopausal Venous insufficiency of both lower extremities Diverticulitis Peripheral vascular complication of surgical procedure Peripheral vascular disease Hyperlipidemia DVT (deep venous thrombosis) Diastolic heart failure Paroxysmal A-fib BERE (obstructive sleep apnea) Surgical History History of lithotripsy History of cardiac cath Hx of vascular surgery H/O hysterectomy for benign disease Family History Father Emphysema, unspecified Mother No problems noted. Brother Atrial fibrillation Sister Atrial fibrillation Sister Breast cancer Social History Household Members: None Housing: House Do you presently have visiting nurse or other home services: No Alcohol intake: never Patient Tobacco Use Status: Never used Tobacco e-Cigarette/Vaping Use: Never Used service: No Current occupational status: retired and disabled Current occupation: rt handed Cognitive needs: No Hearing needs: No Vision needs: Yes Physical Exam There are no Cushingoid features. Absence of blue sclera. Absence of kyphosis. Thyroid gland is of nl size and weighs 15 gms. There are no thyroid nodules palpated. Lungs CTA. Heart S1 S2 Reg R/R Abdominal exam benign. Muscle strength 5/5 . Examination of spine reveals absence of tenderness on palpation Assessment & Plan Assessment & Plan (1) Osteoporosis: Code(s): M81.0 - Age-related osteoporosis without current pathological fracture Category: Medical Qualifiers: Osteoporosis type: age-related Presence of current pathological fracture: without current pathological fracture Qualified Code(s): M81.0 - Age- related osteoporosis without current pathological fracture Plan: This is a 69-year-old white female with a history of osteoporosis with partial secondary workup. Plan is to complete the secondary workup by checking a phosphorus level, 24 hour urine for calcium and creatinine, SPEP, urine immunofixation. Will ensure 1200 mg of calcium intake and continue current vitamin-D supplementation. Assuming secondary workup was negative and considering very low bone density and high risk for fracture could consider use of anabolic therapy 1st like use of the Evenity or Tymlos or Forteo followed by anti resorptive therapy 1. Osteoporosis: The patient requires a comprehensive approach in managing her osteoporosis with no current medications established for it. I highlighted the importance of maintaining a calcium intake around 1200 mg/day, potentially via dietary adjustments and calcium citrate supplements. The patient was educated on the available treatment options, including bisphosphonates like alendronate, denosumab, and anabolic agents, stressing benefits and risks. I will continue to monitor her T-score and bone mineral density, with follow-ups planned amid ensuring osteoporosis medication suitability and insurance feasibility for advanced treatment options like romosozumab. I discussed the diagnosis of osteoporosis with the patient, highlighting treatment options, included bisphosphonates, denosumab, teriparatide, and romosozumab. I explained the importance of adherence and regular follow-up with T-score evaluations. I ensured the patient understood risks associated with bone density loss and potential treatments. The patient's agreement with recommendations was noted, including an increased focus on calcium and vitamin D intake. I encouraged her to look up online resources for further understanding and scheduled follow-ups as necessary, emphasizing insurance nuances for osteoporosis medications. - Aim for 1200 mg of calcium intake daily, preferably in dietary form or calcium citrate supplementation if necessary. - Continue with light weight-bearing activities such as grocery shopping, acknowledging back pain feedback. - Monitor for any progression of symptoms and report any new fractures or severe changes promptly. - Follow up with bone density scans to track osteoporosis progression. - The patient had an opportunity to ask questions regarding treatment plan. The patient expressed understanding and agreement with the above treatment plan. Patient was informed and verbally consented to the use of an ambient scribe for clinic note documentation during this visit. Orders: Orders Phosphorus Today M81.0 - Age-related osteoporosis without current pathological fracture Creatinine, 24 Hr Group Today M81.0 - Age-related osteoporosis without current pathological fracture Protein Electrophoresis, Serum Today M81.0 - Age-related osteoporosis without current pathological fracture Immunofixation, Random Urine Today M81.0 - Age-related osteoporosis without current pathological fracture Calcium, 24 Hr Ur Today M81.0 - Age-related osteoporosis without current pathological fracture Coding Level of Care Code New Pt Level 4 (44329) Diagnoses Age-related osteoporosis without current pathological fracture M81.0 Osteoporosis type: age-related Presence of current pathological fracture: without current pathological fracture
[2025-02-23 10:56] VITALS: BP 138/74; PULSE 49; O2SAT 95; BMI 40.5
--- OUTSIDE RECORDS SUMMARY | 2025-02-23 12:43 | XMS_ITS | Patient Health Record ---
Author Organization [facility] Clarisa Vangley Address [address] [facility] [place] [address] Care Team Providers Care Keyboard Operator Name Role Phone Wil ALBERTS, Annalee Justice Primary Care Provider Un available LakeshaKevin hill Unavailable [phone] Schmid Isabelle Unavailable [phone] Allergies Allergen (clinical drug ingredient) Drug/Non Drug [...] atherosclerosis of arteries of lower limbs (disorder) (57697843251941369 ) Atherosclerosis of artery of both lower extremities (I70.203) Active confirmed Q7(A), Q8(2B), Q9(1B,2 C) Problem Osteoarthritis of midtarsal joint of left foot (8985497523411423) Osteoarthritis of midtarsal joint of left foot (M19.072) Active confirmed Problem Osteoarthritis of midtarsal joint of right foot (2461481226368405) Osteoarthritis of midtarsal joint of right foot (M19.071) Active confirmed Vital Signs Height 5 ft 5 in in 12/07/2024 Weight 232 lbs 12/07/2024 BMI 38.6 kg/m2 12/07/2024 Procedures Procedure Date Ordered Date Performed Result Body Sit e 96202-AZYTFWB NAIL, 1-5 12/07/2024 N/A 82245-Kybmgrgk Plate 12/07/2024 N/A 12137-KUBI SKIN LESIONS, 2 TO 4 12/07/2024 N/A E2088-VWLQCQLG DYSTROPHIC NAILS ANY # 12/07/2024 N/A Encounters Encounter Location Date Provider Diagnosis [address] [address] 12/07/2024 Kevin Crowder Atherosclerosis of artery of [...] right foot M19.071 and Ingrown nail L60.[address] [address] 10/11/2024 Isabelle Schmid [facility] [place] [address] 12/07/2024 Kevin Crowder Assessments Encounter Date Diagnosis [...] X ray : Foot, right 3V 03/21/2021 80240-XBALTRS NAIL, 1-5 12/07/2024 69406-Ymzhmwlg Plate 12/07/2024 24957-WADS SKIN LESIONS, 2 TO 4 12/07/19 25 P4884-UHUBSTEA DYSTROPHIC NAILS ANY # X ray : Ankle, right 3V 03/21/2021 Next Appt Details Provider Name:Kevin Crowder , 03/15/2025 02:45:00 PM, [address] [place], [address], Insurance Providers Payer Name Payer Address Payer Phone Subscriber Number Group Number Insured Name Patient Relationship to Insured Coverage Start Date Coverage End Date Medicare National Govt Svcs Inc [address] [place] [address] [id number] Davida Downey Self - patient is the insured 1 [employer] [address] [place] [address] [phone] [id number] Joseomaira Davida Self - patient is the [...]
--- OUTSIDE RECORDS SUMMARY | 2025-02-23 12:43 | XMS_ITS | Clinical Summary ---
Author Organization [facility] Facility Address [address] [address] Care Team Providers Care Cinetechnician Name Role Phone Dena Gore MD Primary Care Provider [phone] Allergies Active Allergy Reactions Criticality Noted Date [...] require that she be seen at the [facility] but she should definitely be quarantined since onset of her symptoms Friday for 14 days. Patient works at [employer] and would like a note for work [...] disease of the hips bilaterally, referral to [facility] orthopedics for consultation question management. The [...] prior to testing. Until then, can try cafx-uag-deguihj antihistamine such as generic versions of Margy, [...] PPSV23 or PCV20) 04/23/2019 02/26/2019 Influenza Vaccine (Season Ended) 2025 08/06/2017, 09/13/2014, 08/31/2013, Additional history exists Hepatitis B Vaccine Aged Out No longe r eligible based on patient's age to complete this topic Insurance MEDICARE [facility] MEDICARE [facility] Care Teams Cinetechnician Relationship Specialty Start Date End Date Dena Gore MD [facility] [place] [address] PCP - General Internal Medicine 03/13/22
--- OUTSIDE RECORDS SUMMARY | 2025-02-23 12:43 | XMS_ITS ---
Author Organization [facility] Address [address] [place] [address] Care Team Providers Care Squirrel Man Name Role Phone Wil ALBERTS, Annalee Justice Primary Care Provider Un available Kevin Crowder Unavailable [phone] REASON FOR VISIT comfort plus 9 9 half Encounters Encounter Location Date Provider Diagnosis [address] [address] 12/07/2024 Kevin Crowder Plan Of Treatment Next Appt Details Provider Name:Kevin Crowder , 03/15/2025 02:45:00 PM, [address] [place], [address], Progress Notes * RENEDonald CASTANOIlaB:1955 (69 yo F)Acc No.[id number]:12/07/2024 Patient:?Davida RUIZ :1955???Age:69 Y???Sex:Female Address:[address] [place] [address], [address] * true * Date:? Generated for Johanni alexei/Kallie/eTransmitting on:?02/23/2025 12:42 PM EDT
--- OUTSIDE RECORDS SUMMARY | 2025-02-23 12:43 | XMS_ITS ---
Author Organization [facility] Address [address] [place] [address] Care Team Providers Care Plastic Molding Operator Name Role Phone Wil ALBERTS, Annalee Justice Primary Care Provider Un available Kevin Crowder Unavailable [phone] Isabelle Schmid [phone] REASON FOR VISIT sooner appt Encounters Encounter Location Date Provider Diagnosis [facility] [address] [place] [address] 12/16/2024 Isabelle Schmid Plan Of Treatment Next Appt Details Provider Name:Kevin Crowder , 03/15/2025 02:45:00 PM, [address] [place] [address], [address], Progress Notes * Donald RUIZaDOB:1955 (69 yo F)Acc No.[id number]:12/16/2024 Progress Notes Patient:?Davida RUIZ Provider:?Isabelle Schmid DPM :1955???Age:69 Y???Sex:Female D ate:12/16/2024 Address:[address] [place], [place] [id number] Pcp:Zachery Giordano Subjective: * Chief Complaints: * [...] DPM Date:?0 12/16/2024 Generated for Елена linda/Kallie/Juancarlos on:?02/23/2025 12:43 PM EDT
--- OUTSIDE RECORDS SUMMARY | 2025-02-23 12:43 | XMS_ITS ---
Author Organization [facility] Clarisa flores Killbuck Address [address] [facility] [place] [address] Care Team Providers Care Lan Engineer Name Role Phone Wil ALBERTS, Annalee Justice Primary Care Provider Un available Kevin Crowder Unavailable [phone] Allergies Allergen (clinical drug ingredient) Drug/Non Drug [...] atherosclerosis of arteries of lower limbs (disorder) (88970775059741290 ) Atherosclerosis of artery of both lower extremities (I70.203) Active confirmed Q7(A), Q8(2B), Q9(1B,2 C) Problem Osteoarthritis of midtarsal joint of left foot (8648990696104416) Osteoarthritis of midtarsal joint of left foot (M19.072) Active confirmed Problem Osteoarthritis of midtarsal joint of right foot (0687921462864064) Osteoarthritis of midtarsal joint of right foot (M19.071) Active confirmed Vital Signs Height 5 ft 5 in in 12/07/2024 Weight 232 lbs 12/07/2024 BMI 38.6 kg/m2 12/07/2024 Procedures Procedure Date Ordered Date Performed Result Body Sit e 28508-XRNEKLH NAIL, 1-5 12/07/2024 N/A 82307-Orjfpfno Plate 12/07/2024 N/A 59120-SENT SKIN LESIONS, 2 TO 4 12/07/2024 N/A U9681-ONRYUALA DYSTROPHIC NAILS ANY # 12/07/2024 N/A Encounters Encounter Location Date Provider Diagnosis [facility] [address] [address] 12/07/2024 Kevin Crowder Atherosclerosis of artery of [...] X ray : Foot, right 3V 12/07/2024 82692-IHSDPVT NAIL, 1-5 12/07/2024 02756-Ipzgpaoq Plate 12/07/2024 80653-EDAY SKIN LESIONS, 2 TO 4 12/07/19 25 V7212-CPOEWNUT DYSTROPHIC NAILS ANY # Next Appt Details Follow Up: prn, Reason: Provider Name:Kevin Crowder , 03/15/2025 02:45:00 PM, [address] [place] [address], [address], Procedure Notes * Category Sub-Category Detail Notes [...] Motrin was recommended for pain or discomfort (78616), CIRCULATION: Pt was advised as to the [...] instrumentation by the physician of record - 51803, Q8 Debride Nails 1-5 Procedure: Due to [...] necessary to maintain effective symptomatic relief - 70515 Nail Reduction Nail Reduction (-27) Trimming o [...] Notes * Donald DOWNEYIlaB:1955 (69 yo F)Acc No.[id number]:12/07/2024 Progress Notes Patient:Davida ESPARZA Provider:?Kevin Crowder DPM :1955???Age:69 Y???Sex:Female D ate:12/07/2024 Address:[address] [place], [place] [phone] Pcp:Zachery Giordano Subjective: * Chief Complaints: * [...] Foot, AP, LAT, LO, B/L??Taken by trained?Podiatric Support Services Specialist (?__ ).?Findings:?normal bone and soft tissue density [...] nail border,?TA??? Plan: * Treatment: 2.?Tinea unguium?Procedure: 74635-ELMIKRO NAIL, 1-5 3.?Pain in left foot?Imaging: X ray : Foot, left 3V 4.?Pain in right foot?Imaging: X ray : Foot, right 3V 5.?Ingrown nail?Procedure: 90309-Goeixlum Plate * Procedures:?Debride Nails 1-5:?Procedure:?Due to the [...] necessary to maintain effective symptomatic relief - 05506.?Keratoma Treatment:?Parring or Cutting of Benign Hyperkeratotic Lesion(s)?(-56) [...] instrumentation by the physician of record - 10078, Q8.?Nail Avulsion:?Location?Lateral nail border,?TA.?Anesthesia?2cc of 1 percent [...] Motrin was recommended for pain or discomfort (51021), CIRCULATION: Pt was advised as to the [...] tissue - G0127, Q8.? * Procedure Codes:?G0127 MARCLEO ING DYSTROPHIC NAILS ANY #, Modifiers: XS , [id number] Avulsion Plate, Modifiers: XS , AP49016 X-RAY EXAM OF LEFT FOOT 3V, Modifiers: 26 , DF52112 X-RAY EXAM OF RIGHT FOOT 3V, Modifiers: 26 , SG76587 DEBRIDE NAIL, 1-5, Modifiers: XS 85808 TRIM SKIN LESIONS, 2 TO 4, Modifiers: [...] exercise to failure, expense, systemic complications, infection, mvfsdck-kel-nudmavb, prolongued postop course. 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 They were asked [...] Crowder DPM Date:?2024 Generated for Елена linda/Kallie/Kaushalitting on:?02/23/2025 12:42 PM EDT History and Physical Notes * [...] LAT, LO, B/L Taken by trained Podiatric Support Services Specialist ( __ ) Clinical Indication(s): Evaluate for Fra cture, Evaluate Biomechanical Deformity
== END 2025-02-23 11:46 | disposition home or self-care (01) ==
LOC: HO.ENCR 10:42
PROVIDERS: PCP Internal Medicine; Visit Provider Internal Medicine Endocrinology, Diabetes & Metabolism
DX: M81.0 Age-related osteoporosis without current pathological fracture (principal)
CPT/HCPCS: 99204

== ENCOUNTER → 2025-02-23 10:41 | Outpatient (BNVA) | payer MEDICARE, SELFPAY | PROVIDERS: PCP Internal Medicine; Visit Provider Internal Medicine Endocrinology, Diabetes & Metabolism | DX: M81.0 Age-related osteoporosis without current pathological fracture (principal) | CPT/HCPCS: 99202 ==

== ENCOUNTER 2025-03-17 10:48 | Outpatient (AMB) | payer MEDICARE, SELFPAY ==
--- NOTE | 2025-03-17 11:10 | MHC.OFFVISCO ---
Intake Intake Visit Reasons: Anticoagulation Allergies Sulfa (Sulfonamide Antibiotics) [SULFA(SULFONAMIDE ANTIBIOTICS)] Allergy (Unknown, Verified 03/17/25 10:52) RASH codeine Adverse Reaction (Verified 03/17/25 10:52) Vomiting oxycodone Adverse Reaction (Verified 03/17/25 10:52) Gastrointestinal Upset Medication List - Last Reconciled 03/17/25 by Theresa Philip RN amiodarone 200 mg PO DAILY ascorbate calcium (vitamin C) 500 mg PO DAILY bumetanide 1 mg (1/2 x 2 mg) PO DAILY celecoxib (Celebrex) 200 mg PO BID 30 days cholecalciferol (vitamin D3) 10 mcg PO DAILY gabapentin 600 mg PO BID multivitamin 1 tab PO DAILY warfarin See Protocol 2.5 mg orally X5 DAYS/ 5MG X 2 DAYS ( and ); Nursing Note INR: 3.1?out of therapeutic range of 2-3 Medications and supplements reviewed Patient status: well Medications or supplements: no changes Diet: same Denies any signs and symptoms of bleeding or clotting or unusual bruising Bleeding, bruising, clotting discussed Nutritional guidance given: to have a serving of greens today but pt states she wont be able to today so will decrease today's dose to 2.5mg instead of 5mg Dose: 2.5mg today then usual dose of 2.5mg X 5 days and 5mg X 2 days (Fri & ) F/U INR Date: 3 weeks? Patient verbalizing understanding of instructions given. 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
[2025-03-17 11:49] LABS: Prothrombin Time Whole Bld POC 37.3 sec (11.1-13.5); ~PT, ~INR - Anti Coag Clinic 3.1 (0.9-1.1)
--- OUTSIDE RECORDS SUMMARY | 2025-03-17 12:41 | XMS_ITS | Patient Health Record ---
Author Organization [facility] Clarisa Vangley Address [address] [place] [address] Care Team Providers Care Timber Management Assistant Name Role Phone Wil ALBERTS, Annalee Justice Primary Care Provider Un available LakeshaKevin hill Unavailable [phone] Schmid Isabelle Unavailable [phone] Allergies Allergen (clinical drug ingredient) Drug/Non Drug Allergy documented on EMR Reaction Allergy Type Onset Date Status codeine Codeine Unknown Drug Allergy Active Latex Latex Unknown Allergy Active Substance with sulfonamide structure and antibacterial mechanism of action (substance) Sulfa Antibiotics rash Drug Allergy Active Reason For Referral No Information Medications Medication SIG (Take, Route, Frequency, Duration) Notes Start Date End Date Status Keflex 500 500 MG 1 capsule Orally anushka ry 12 hrs for 10 day(s) 03/21/2021 Not-Taking Warfarin Sodium 5 MG 1 tablet Orally Onc e a day for 30 days Active Spironolactone 25 MG 1 tablet Orally for 30 day(s) Not-Taking Bumetanide 2 MG as directed Orally Active Gabapentin 300 MG 1 capsule Orally Onc e a day for 30 day(s) Active Warfarin Sodium 2.5 MG 1 tablet Orally O nce a day Active Amiodarone HCl 200 MG 1 tablet Orally On ce a day for 30 days Active Social History Tobacco Use: Social History Observation Description Date Details (start date - stop date) Never Smoker NA - NA Tobacco use other than smoking: Question Answer Notes Are you an other tobacco user? No Tobacco Control (Standard) Question Answer Notes Tobacco use: Nonsmoker Additional Findings: Tobacco non-user Current no nsmoker AUDIT-C (Standard) Question Answer Notes Did you have a drink containing alcohol in the p ast year? No Points 0 Interpretation Negative Problems Problem Type SNOMED Code ICD Code Onset Dates Problem Status W/U Status Risk Notes Problem Bilateral atherosclerosis of arteries of lower limbs (disorder) (19976188215643300 ) Atherosclerosis of artery of both lower extremities (I70.203) Active confirmed Q7(A), Q8(2B), Q9(1B,2 C) Problem Osteoarthritis of midtarsal joint of left foot (6890330751902565) Osteoarthritis of midtarsal joint of left foot (M19.072) Active confirmed Problem Osteoarthritis of midtarsal joint of right foot (6152224193138048) Osteoarthritis of midtarsal joint of right foot (M19.071) Active confirmed Vital Signs Blood pressure diastolic 70 mm Hg 03/15/2025 Height 5 ft 5 in in 03/15/2025 Blood pressure systolic 130 mm Hg 03/15/2025 Weight 232 lbs 03/15/2025 BMI 38.6 kg/m2 03/15/2025 Procedures Procedure Date Ordered Date Performed Result Body Sit e 50827-TAXWYCS NAIL, 1-5 12/07/2024 N/A 37408-Hjchzozq Plate 12/07/2024 N/A 63818-SHTS SKIN LESIONS, 2 TO 4 12/07/2024 N/A X7693-ETPHUITL DYSTROPHIC NAILS ANY # 12/07/2024 N/A 27839-YBFGMVG NAIL, 1-5 03/15/2025 N/A 75357-Ayyvfovl Plate 03/15/2025 N/A 70126-SMNX SKIN LESIONS, 2 TO 4 03/15/2025 N/A B4480-IWJWJRXW DYSTROPHIC NAILS ANY # 03/15/2025 N/A Encounters Encounter Location Date Provider Diagnosis [facility] [place] [address] [place] [address] 12/07/2024 Kevin Crowder Atherosclerosis of artery of [...] right foot M19.071 and Ingrown nail L60.[address] [facility] [address] 03/15/2025 Kevin Crowder Atherosclerosis of artery of both lower extremities I70.203 ; Tinea unguium B35.1 ; Pain in right toe(s) M79.674 ; Pain in left toe(s) M79.675 ; 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 ; Osteoarthritis of midtarsal joint of right foot M19.071 and Ingrown nail L60.[address] [address] 10/11/2024 Isabelle Binu [address] [address] 12/07/2024 Kevin Crowder Assessments Encounter Date Diagnosis (ICD Code) Assessment Notes Treatment Notes Treatment Clinical Notes Section Notes 12/07/2024 Tinea unguium (ICD-10 - B35.1) 12/07/2024 Atherosclerosis of artery of both lower extremities (ICD-10 - I70.203) Q7(A), Q8(2B), Q9(1B,2C) 03/15/2025 Tinea unguium (ICD-10 - B35.1) 03/15/2025 Atherosclerosis of artery of both lower extremities (ICD-10 - I70.203) Q7(A), Q8(2B), Q9(1B,2C) 03/15/2025 Pain in right toe(s) (ICD-10 - M79.674) 12/07/2024 Pain in right toe(s) (ICD-10 - M79.674) 12/07/2024 Pain in left toe(s) (ICD-10 - M79.675) 03/15/2025 Pain in left toe(s) (ICD-10 - M79.675) 03/15/2025 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 - M19.072) 12/07/2024 Pain in left foot (ICD-10 - M79.672) 12/07/2024 Pain in left ankle and joints of left foot (ICD-10 - M25.572) 03/15/2025 Osteoarthritis of midtarsal joint of right foot (ICD-10 - M19.071) 03/15/2025 Ingrown nail (ICD-10 - L60.0) 12/07/2024 Bursitis of left foot (ICD-10 - [...] X ray : Foot, right 3V 03/21/2021 91385-INDPMDG NAIL, 1-5 12/07/2024 65840-MEMXUDL NAIL, 1-5 03/15/2025 35802-Rfowcokw Plate 03/15/2025 28836-Aifeigld Plate 12/07/2024 42006-WZLP SKIN LESIONS, 2 TO 4 12/07/19 06710-OIDY SKIN LESIONS, 2 TO 4 03/15/20 T6939-RTVWIYTI DYSTROPHIC NAILS ANY # V5383-NZIHUNAU DYSTROPHIC NAILS ANY # X ray : Ankle, right 3V 03/21/2021 Next Appt Details Provider Name:Kevin Crowder , 06/17/2025 01:30:00 PM, [address] [place] [address], [phone], Provider Name:Kevin Kabaunier , 08/12/2025 11:00:00 AM, [address] [place], [address], Provider Name:Kevin Crowder , 08/26/2025 12:00:00 PM, [address] [place], [address], Insurance Providers Payer Name Payer Address Payer Phone Subscriber Number Group Number Insured Name Patient Relationship to Insured Coverage Start Date Coverage End Date Medicare National [employer] [address] [place] [address] [id number] Davida Downey Self - patient is the insured 1 Vserv [facility] [address] [place] [address] [id number] Davida Downey Self - patient is the insured Medical (General) History Medical History History ICD Code Back,Hip,and Knee pain Broken bones Diverticulosis Headaches/Migraines Poor circulation Vascular phlebitis (clots) Measles Chicken pox Arthritis Heart disease Kidney disease Sciatica Restless leg syndrome Surgical History Surgery Date(Month/Year) hysterectomy 02/2000 cardiac catheterization 2020 Hospitalization History Reason Date(Month/Year) [facility] [place] -[facility]/ Kidney Failure 08/2020
--- OUTSIDE RECORDS SUMMARY | 2025-03-17 12:41 | XMS_ITS | Clinical Summary ---
Author Organization [facility] Facility Address [address] [address] Care Team Providers Care Tarper Name Role Phone Dena Gore MD Primary Care Provider [phone] Allergies Active Allergy Reactions Criticality Noted Date [...] require that she be seen at the [facility] but she should definitely be quarantined since onset of her symptoms Friday for 14 days. Patient works at [employer] and would like a note for work [...] prior to testing. Until then, can try ifpe-tme-vpfusad antihistamine such as generic versions of Margy, [...] doctors in 3 to 4 months Immunizations Immunization Administration Dates Next Due Influenza (IM) Preservative [...] Colorectal Cancer Screening: Sigmoidoscopy 2005 Pneumococcal Vaccine: 50+ Years (2 of 2 - PPSV23) 04/23/2019 02/26/2019 Influenza Vaccine (Season Ended) 2025 08/06/2017, 09/13/2014, 08/31/2013, Additional history exists Pneumococcal Vaccine: Peds (0 to 5 Years) and At-Risk Patients (6 to 49 Years) Discontinued 02/26/2019 Hepatitis B Vaccine Aged Out No longe r eligible based on patient's age to complete this topic Insurance Medicare [facility] Medicare [facility] Care Teams Tarper Relationship Specialty Start Date End Date Dena Gore MD [address] [place] [address] PCP - General Internal Medicine 03/13/22
--- OUTSIDE RECORDS SUMMARY | 2025-03-17 12:41 | XMS_ITS ---
Author Organization [facility] Address [address] [place] [address] Care Team Providers Care Distribution A Class Lineman Name Role Phone Wil ALBERTS, Annalee Justice Primary Care Provider Un available Kevin Crowder Unavailable [phone] REASON FOR VISIT comfort plus 9 9 half Encounters Encounter Location Date Provider Diagnosis [address] [address] 12/07/2024 Kevin Crowder Plan Of Treatment Next Appt Details Provider Name:Kevin Crowder , 06/17/2025 01:30:00 PM, [address] [place] [address], [phone], Provider Name:Kevin Crowder , 08/12/2025 11:00:00 AM, [address] [place] [address], [address], Provider Name:Kevin Crowder , 08/26/2025 12:00:00 PM, [address] [place] [address], [address], Progress Notes * Loan RUIZB:1955 (69 yo F)Acc No.[id number]:12/07/2024 Patient:Davida ESPARZA :1955???Age:69 Y???Sex:Female Address:[address] [place] [address], [place], [address] * true * Date:? Generated for Елена linda/Kallie/Kaushalitting on:?03/17/2025 12:40 PM EDT
--- OUTSIDE RECORDS SUMMARY | 2025-03-17 12:41 | XMS_ITS ---
Author Organization [facility] Address [address] [place] [address] Care Team Providers Care Track Welder Name Role Phone Wil ALBERTS, Annalee Justice Primary Care Provider Un available Kevin Crowder Unavailable [phone] Isabelle Schmid Unavailable [phone] REASON FOR VISIT sooner appt Encounters Encounter Location Date Provider Diagnosis [address] [address] 12/16/2024 Isabelle Schmid Plan Of Treatment Next Appt Details Provider Name:Kevin Crowder , 06/17/2025 01:30:00 PM, [address] [place] [address], [address], Provider Name:Kevin Crowder , 08/12/2025 11:00:00 AM, [address] [place] [address], [phone], Provider Name:Kevin Crowder , 08/26/2025 12:00:00 PM, [address] [place] [address], [address], Progress Notes * Loan DOWNEYB:1955 (69 yo F)Acc No.[id number]:12/16/2024 Progress Notes Patient:?Davida DOWNEY Provider:?Isabelle Schmid DPM :1955???Age:69 Y???Sex:Female D ate:12/16/2024 Address:[address] [place] [address], [place] Pcp:Zachery Giordano Subjective: * Chief Complaints: * [...] Schmid DPM Date:?0 12/16/2024 Generated for Елена linda/Kallie/Kaushalitting on:?03/17/2025 12:41 PM EDT
--- OUTSIDE RECORDS SUMMARY | 2025-03-17 12:41 | XMS_ITS | Continuity of Care Document ---
Author Organization [facility] Address [address] [place] [address] Phone Care Team Providers Care Ball Mill Mixer Name Role Phone Miguel ALBERTS, RVT, RPVI, [...] Providers Copied on Encounter [facility] [place], [address] [place] [address] Dr Stack [address], [place], [id number], [place] tel:[phone] [facility] [place] No Information 4 Miguel ALBERTS RVT, MARY Montez. [address] [place] [address], [place] [facility], [id number], [place]. tel:[phone] [facility] [place], [address] [place] [address] Dr Stack [address] 1000D[place]ie [place], [id number], [place] tel:[phone] [facility] [place] Varicose veins of left lower extremity with other complication s 4 Anjelica Reeder. [address] [place] [address], [facility] [place], [id number], [place]. tel:[phone] Referring Provider: Korina FAJARDO, [address] [place] [address], [id number]. tel:[phone] [facility], [address] [place] [address] Dr Stack [address], [place], [id number], [place] tel:[phone] [facility] [place] Encounter for follow-up examination after completed treatment for conditions other than malignant nePain in left leg 4 Miguel ALBERTS RVT, MARY Montez. [address] [place] [address], [place], [id number], [place]. tel:[phone] Referring Provider: Korina FAJARDO, [facility] [place], [address]. tel:[phone] [facility], [address] [place] [address] Dr Stack 1000[address] 1000D[place]ie [place], [id number], [place] tel:[phone] [facility] [place] Varicose veins of left lower extremity with other complication s 4 Miugel ALBERTS RVT, MARY Montez. [address] [place] [address], [place], [place], [id number], [place]. tel:[phone] Referring Provider: Korina FAJARDO, [address] [place] [address], [facility]. tel:[phone] Office/Outpt E&M Established 15 Mins- CT & [place] [facility], [address] [place] [address] Dr Stack 1000Suite Dottie Greer [place], [id number], [place] tel:[phone] [facility] [place] Pruritus, unspecifiedV aricose veins of left lower extremity with other complication sLocalized edemaCramp and spasmRestles s legs syndrome 4 Miguel ALBERTS RVT, MARY Montez. [address] [place] [address], [facility] [place], [place], [id number], [place]. tel:[phone] Referring Provider: Korina FAJARDO, [address] [place] [address], [facility]. tel:[phone] [facility], [address] [place] [address] Dr Stack 1000SuDottie hodge [place], [id number], [place] tel:[phone] [facility] [place] Encounter for follow-up examination after completed treatment for conditions other than malignant neChronic venous hypertension (idiopathic) with other complication s of bilateral lower extremity 4 Miguel ALBERTS RVT, MARY Montez. [address] [place] [address], [facility] [place], [id number], [place]. tel:[phone] Referring Provider: Korina FAJARDO, [address] [place] [address], [facility]. tel:[phone] [facility], [address] [place] [address] Dr Stack 1000[address] 1000Dottie [place], [id number], [place] tel:[phone] CVR [facility] Encounter for follow-up examination after completed treatment for conditions other than malignant neoplasmVari cose veins of left lower extremity with pain 4 Elizabeth Beth. [address], [address], [place], [place], [id number], [place]. tel:[phone] Referring Provider: Korina FAJARDO, [address] [place] [address], [id number]. tel:[phone] [facility], [address] [place] [address] [facility] [address]Suite [facility] [place], [id number], [place] tel:[phone] CVR [facility] Varicose veins of left lower extremity with other complication s 4 Miguel ALBERTS RVT, MARY Montez. [address] [place] [address], [place], [id number], [place]. tel:[phone] Referring Provider: Korina FAJARDO, [address] [place] [address], [id number]. tel:[phone] [facility], [address] [place] [address] [facility] 1000Suite Dottie Greer [place], [id number], [place] tel:[phone] [facility] No Information 4 Miguel ALBERTS RVT, MARY Montez. [address] [place] [address], [place], [id number], [place]. tel:[phone] [facility], [address] [place] [address] Dr Stack 1000[address] 1000Dottie [place], [id number], [place] tel:[phone] CVR - [facility] Encounter for follow-up examination after completed treatment for conditions other than malignant neoplasmChro savi venous hypertension (idiopathic) with other complication s of right lower extremity 4 Miguel ALBERTS RVT, MARY Montez. [address] [place] [address], [place], [id number], [place]. tel:[phone] Referring Provider: Korina FAJARDO, [address] [place] [address], [facility]. tel:[phone] [facility] [place], [address] [place] [address] Dr Stack 1000SuDottie hodge [place], [id number], [place] tel:[phone] CVR - [facility] Varicose veins of right lower extremity with other complication s 4 Miguel ALBERTS RVT, MARY Montez. [address] [place] [address], [facility], [place], [id number], [place]. tel:[phone] Referring Provider: Korina FAJARDO, [address] [place] [address], [facility]. tel:[phone] [facility] [place], [address] [place] [address] Dr Stack 1000Dottie hodge [place], [id number], [place] tel:[phone] CVR [facility] Encounter for follow-up examination after completed treatment for conditions other than malignant neVaricose veins of right lower extremity with pain 4 Miguel ALBERTS RVT, RPVI Robert. [address] [place] [address], [facility], [place], [id number], [place]. tel:[phone] Referring Provider: Korina FAJARDO, [address] [place] [address], [facility]. tel:[phone] [facility], [address] [place] [address] Dr Stack 1000SuDottie hodge [place], [id number], [place] tel:[phone] CVR - [facility] No Information 4 Miguel ALBERTS RVT, MARY Montez. [address] [place] [address], [facility] [place], [place], [id number], [place]. tel:[phone] [facility], [address] [place] [address] Dr Stack 1000SuDottie hodge [place], [id number], [place] tel:[phone] CVR - [facility] Chronic venous hypertension (idiopathic) with inflammation of right lower extremity 4 Miguel ALBERTS RVT, MARY Montez. [address] [place] [address], [place], [place], [id number], . tel:[phone] Referring Provider: Korina FAJARDO, [address] [place] [address], [address]. tel:[phone] Offic/outpt E&m Estab 5 Min Trial- Telemedicine CT & [place] [facility], [address] [place] [address] Dr Stack 1000Suite Dottie Greer [place], [id number], [place] tel:[phone] [facility] Localized edemaCramp and spasmRestles s legs syndromeVeno us insufficienc y (chronic) (peripheral) Pruritus, unspecified Feb- 4 Dayo Camarillo. [address] [place] [address], [place], [place], [id number], [place]. tel:[phone] Referring Provider: Korina FAJARDO, [address] [place] [address], [address]. tel:[phone] Office/Oupt E&M New Pt 45 Mins [facility], [address] [place] [address] Dr Stack 1000Suite Dottie Greer [place], [id number], [place] tel:[phone] [facility] [place] Varicose veins of bilateral lower extremities with other complication Jarrod in right lower legPain in left lower legPain in right legRestless legs syndromePrur itus, unspecifiedP ain in left legCramp and spasmLocaliz ed edema 4 Miguel ALBERTS, RVT, MARY Montez. [address] [place] [address], [place], [place], [id number], [place]. tel:[phone] Referring Provider: LIS PHILLIPS MD MPH R, [address], [place], [address]. tel:[phone] [facility], [address] [place] [address] Dr Stack 1000SuDottie hodge [place], [id number], [place] tel:[phone] CVR - [facility] Chronic venous hypertension (idiopathic) with other complication s of bilateral lower extremity 4 Miguel ALBERTS, RVT, MARY Montez. [address], [place], [id number], [place]. tel:[phone] Referring Provider: Korina JIANGP, [address] [place], [address]. tel:[phone] Family History Family Member Type Diagnosis Age At Onset No Information Payers Payer name Insurance type Covered libertarian ID Keniacaitlin gerardobobbi(s) [facility] [id number] Social History Type Description Quantity Date Captured [...]
--- OUTSIDE RECORDS SUMMARY | 2025-03-17 12:41 | XMS_ITS ---
Author Organization [facility] Clarisa flores [place] Address [address] [place] [address] Care Team Providers Care Vacuum Pan Tender Name Role Phone Wil ALBERTS, Annalee Justice Primary Care Provider Un available Kevin Crowder Unavailable [phone] Allergies Allergen (clinical drug ingredient) Drug/Non Drug [...] ast year? No Points 0 Interpretation Negative Vital Signs Height 5 ft 5 in in 03/15/2025 Weight 232 lbs 03/15/2025 BMI 38.6 kg/m2 03/15/2025 Blood pressure systolic 130 mm Hg 03/15/20 25 Blood pressure diastolic 70 mm Hg 025 Procedures Procedure Date Ordered Date Performed Result Body Sit e 28905-HIGFLVH NAIL, 1-5 03/15/2025 N/A 09526-Httsxdtp Plate 03/15/2025 N/A 78620-RBXE SKIN LESIONS, 2 TO 4 03/15/2025 N/A G1670-WLXAJNOQ DYSTROPHIC NAILS ANY # 03/15/2025 N/A Encounters Encounter Location Date Provider Diagnosis [facility] [address] [address] 03/15/2025 Kevin Crowder Atherosclerosis of artery of [...] Treatment Notes Treatment Clinical Notes Section Notes 03/15/2025 Atherosclerosis of artery of both lower extremities (ICD-10 - I70.203) Q7(A), Q8(2B), Q9(1B,2C) 03/15/2025 Tinea unguium (ICD-10 - B35.1) 03/15/2025 Pain in right toe(s) (ICD-10 - M79.674) 03/15/2025 Pain in left toe(s) (ICD-10 - M79.675) 03/15/2025 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 - M19.072) 03/15/2025 Osteoarthritis of midtarsal joint of right foot (ICD-10 - M19.071) 03/15/2025 Ingrown nail (ICD-10 - L60.0) Plan Of Treatment Pending Test Test Name Order Date 68937-LDUUNJO NAIL, 1-5 03/15/2025 61961-Mwynapkm Plate 03/15/2025 55207-VWWM SKIN LESIONS, 2 TO 4 03/15/20 D9281-SHTKTBAX DYSTROPHIC NAILS ANY # Next Appt Details Follow Up: prn, Reason: Provider Name:Kevin Crowder , 06/17/2025 01:30:00 PM, [address] [place] [address], [id number], Provider Name:Kevin Crowder , 08/12/2025 11:00:00 AM, [address] [place] [address], [phone], Provider Name:Kevin Crowder , 08/26/2025 12:00:00 PM, [address] [place] [address], [address], Procedure Notes * Category Sub-Category Detail Notes Nail Avulsion Procedure A fine sterile e levator was placed between the eponychium, nail fold, and nail plate to separate the the structures. A sterile nail splitter, and/or [...] the temporary use of either a digital tournaquet or the aforementioned local with epinephrine. A bacitracin sterile dressing was applied. Local wound aftercare instructions were discussed and dispensed. The patient was informed of both conservative and future surgical procedures to prevent recurrence. Tylenol or Motrin was recommended for pain or discomfort (69[address]), CIRCULATION: Pt was advised as to the risk of delayed or nonhealing due to circulation. Pt is to call the office with any questions, concerns, or complications Anesthesia 2cc of 1 percent Lid ocaine Plain local anesthesic utilizing aseptic technique Location Lateral nail border, T5 Keratoma Treatment Parring or Cutting o f [...] MTH (s), 4, Left, Plantar Heel(s), B/L ), were pared, and/or cut utilizing a sterile 15 blade, tissue nippers, and/or power dremel instrumentation by the physician of record - 86861, Q8 Debride Nails 1-5 Procedure: Due to the cli nical pathology outlined in the exam findings, performance of this nail treatment is medically necessary as its management by an unskilled/untrained nonprofessional would put this patients foot and overall health at risk. Therefore, debridement to affected nail(s), as described in exam ( TA,T4,T5, T9 ), was performed exclusively by the physician of [...] necessary to maintain effective symptomatic relief - 83221 Nail Reduction Nail Reduction (-27) Trimming o [...] - G0127, Q8 Progress Notes * Donald DOWNEYaDOB:1955 (69 yo F)Acc No.[id number]:03/15/2025 Progress Note Patient:?Davida DOWNEY Provider:?Kevin Crowder DPM :1955???Age:69 Y???Sex:Female D ate:03/15/2025 Address:[address] [place] [address], [facility] Pcp:Zachery Giordano Subjective: * Chief Complaints: * ???At Risk FootcarePainful N ail(s) aggrevated by shoes and causing difficulty standing/walking.Foot painIngrown Nail * HPI: ???At Risk footcare:?Pt States Last PCP Visit:?Date?02/02/2025 ???Foot Pain:?Location:?Top , Midfoot, B/L.?Treatments:?rest/alter normal daily activity, ice, change in shoes, innersoles.? * ROS:?General/Constitutional:?Nausea?denies.?Vomiting?denies.?Hunger Thirst?denies.?Loss appetite?denies.?Chills?denies.?Fatigue?denies.?Fever?denies.?Night Sweats?denies.?Unexplained weight loss?denies.?Unexplained [...] dece ased, poor circulation, diagnosed with Unspecified essential hypertension, Unspecified cerebral artery occlusion with cerebral infarction.?Father: , diagnosed with Other malignant neoplasm of [...] medical reasons in the past 12 months??No ???Miscellaneous:?Caffeine: no. ?Children: yes, 3. ?Exercise: no. ?Marital status: . ???Drug/Alcohol:?AUDIT-C (Standard)?Did you have a drink containing alcohol in the past year??No ?Points?0 ?Interpretation?Negative * Medications:?TakingWarfarin Sodium 2.5 MG Tablet 1 [...] ft 5 in, Wt:232 , BMI:38.6, Shoe size:10.5W, BP:130/70mm Hg, Ht-cm: 165.1 cm, Wt-k.23 kg. * Examination: ???Vascular: ?DP PULSES (B):?1/4, [...] dystrophic ( ?T1, T2, T3, T6, T7, T8?).?Dermatologic: ?SKIN FINDINGS:?Skin exam reveals Keratotic lesion(s) located at, SUB MTH (s), 3, Left, SUB MTH (s), 4, Left, Plantar Heel(s), B/L.?Orthopedic: ?FOOT MORPHOLOGY:?Prominent, approximately 90 percent LESS, painful 1st Met-Cuneiform joint NOW without inflammation, B/L.?FOOTWEAR EVALUATION:?OT were inspected and noted to be worn, but in good condition giving proper support at the present time.?Ingrown Nail: ?INSPECTION:?Reveals nail incurvation, pain on palpation, groove hypertrophy, Lateral nail border, T5.? Assessment: * Assessment: 1.?Tinea unguium - B35.1???2 .?Atherosclerosis of artery of both lower extremities - I70.203 (Primary)???Specify :?Q8???Notes :Q7(A), Q8(2B), Q9(1B,2C)???3.?Pain in right toe(s) - M79.674???4.?Pain in left toe(s) - M79.675???5.?Osteoarthritis of midtarsal joint of left foot - M19.072???Specify :Acute problem, Stable, Response to treatment - Improvement???6.?Osteoarthritis of midtarsal joint of right foot - M19.071???Specify :Acute problem, Stable, Response to treatment - Improvement???7.?Ingrown nail - L60.0???Specify :?Lateral nail border,?T5??? Plan: * Treatment: 2.?Tinea unguium?Procedure: 64423-HEMLONU NAIL, 1-5 3.?Ingrown nail?Procedure: 78054-Ihagljjd Plate * Procedures:?Debride Nails 1-5:?Procedure:?Due to the clinical pathology outlined in the exam findings, performance of this nail treatment is medically necessary as its management by an unskilled/untrained nonprofessional would put this patients foot and overall health at risk. Therefore, debridement to affected nail(s), as described in exam ( TA,T4,T5, T9 ), was performed exclusively by the physician of [...] necessary to maintain effective symptomatic relief - 70405.?Keratoma Treatment:?Parring or Cutting of Benign Hyperkeratotic Lesion(s)?(-56) [...] MTH (s), 4, Left, Plantar Heel(s), B/L ), were pared, and/or cut utilizing a sterile 15 blade, tissue nippers, and/or power dremel instrumentation by the physician of record - 51149, Q8.?Nail Avulsion:?Location?Lateral nail border,?T5.?Anesthesia?2cc of 1 percent Lidocaine Plain local anesthesic utilizing aseptic technique.?Procedure?A fine sterile elevator was placed between the eponychium, nail fold, and nail plate to separate the the structures. A sterile nail splitter, and/or [...] the temporary use of either a digital tournaquet or the aforementioned local with epinephrine. A bacitracin sterile dressing was applied. Local wound aftercare instructions were discussed and dispensed. The patient was informed of both conservative and future surgical procedures to prevent recurrence. Tylenol or Motrin was recommended for pain or discomfort (20843), CIRCULATION: Pt was advised as to the [...] DYSTROPHIC NAILS ANY #, Modifiers: XS , [id number] Avulsion Plate, Modifiers: XS , [id number] DEBRIDE NAIL, 1-5, Modifiers: XS 24398 TRIM SKIN LESIONS, 2 TO 4, Modifiers: XS , Q8 * Preventive Medicine:? ??Counseling:?Discussion:?-12: Office or other outpatient visit for the evaluation and management of an established patient, which required a medically appropriate history and/or examination and STRAIGHTFORWARD level of MEDICAL DECISION MAKING, 1 SELF-LIMITED OR MINOR PROBLEM, MINIMAL- NO AMOUNT/COMPLEXITY OF DATA TO BE REVIEWED/ANALYZED, AND MINIMAL RISK OF COMPLICATION/MORBIDITY. The visit on the day of the [...] have encouraged the patient to call the office, Given recent successful results to treatment, The patient wishes to continue with the present treatment plan for their condition.? ??Screening/Special Tests:?Fall Risk?Assessment:?Performed ?Plan of Care:?Documented ?Type [...] * Sign off status: Completed true * Provider:Maxim Crowder DPM Date:?2024 Generated for Елена linda/Kallie/Juancarlos on:?03/17/2025 12:40 PM EDT History and Physical Notes * HPI (History of Present Illness) Category Sub-Category Detail Notes Category Not es At Risk footcare Pt States Last PCP Visit: Date: 5 Foot Pain Location: Top , Midfoot, B/L Treatments: rest/alter normal da samira activity, ice, change in shoes, innersoles Examination Category Sub-Category Detail Notes Category Not es Ingrown Nail INSPECTION: Reveals nail inc urvation, pain on palpation, groove hypertrophy, Lateral nail border, T5 Dermatologic SKIN FINDINGS: Skin exam reveal s Keratotic lesion(s) located at, SUB MTH (s), 3, Left, SUB MTH (s), 4, Left, Plantar Heel(s), B/L Orthopedic FOOT MORPHOLOGY: Prominent, appr oximately 90 percent LESS, painful 1st Met-Cuneiform joint NOW without inflammation, B/L FOOTWEAR EVALUATION: OT were inspected a nd noted to be worn, but in good condition giving proper support at the present time Vascular DP PULSES (B): 1/4, B/L PT [...]
== END 2025-03-17 11:13 | disposition home or self-care (01) ==
LOC: HO.ACS 10:48
PROVIDERS: PCP Internal Medicine; Visit Provider Internal Medicine Medical Oncology
DX: Z79.01 Long term (current) use of anticoagulants (principal)

== ENCOUNTER → 2025-03-17 10:48 | Outpatient (BNVA) | payer MEDICARE, SELFPAY | PROVIDERS: PCP Internal Medicine; Visit Provider Internal Medicine Medical Oncology | DX: I48.0 Paroxysmal atrial fibrillation (principal); Z79.01 Long term (current) use of anticoagulants; Z51.81 Encounter for therapeutic drug level monitoring | CPT/HCPCS: 85610; 99211 ==

== ENCOUNTER 2025-03-30 02:00 | Outpatient (REF) | payer MEDICARE, SELFPAY ==
--- OUTSIDE RECORDS SUMMARY | 2025-03-30 15:59 | XMS_ITS ---
Author Organization [facility] Address [address] [place] [address] Care Team Providers Care Ergonomics Engineer Name Role Phone Wil ALBERTS, Annalee Justice Primary Care Provider Un available Kevin Crowder Unavailable [phone] REASON FOR VISIT comfort plus 9 9 half Encounters Encounter Location Date Provider Diagnosis [address] [address] 12/07/2024 Kevin Crowder Plan Of Treatment Next Appt Details Provider Name:Kevin Crowder , 06/17/2025 01:30:00 PM, [address] [place] [address], [phone], Provider Name:Kevin Crowder , 08/12/2025 11:00:00 AM, [address] [place] [address], [phone], Provider Name:Kevin Crowder , 08/26/2025 12:00:00 PM, [address] [place] [address], [address], Progress Notes * Loan RUIZB:1955 (69 yo F)Acc No.[id number]:12/07/2024 Patient:Davida ESPARZA :1955???Age:69 Y???Sex:Female Address:[address] [place] [address], [place], [address] * true * Date:? Generated for Елена linda/Kallie/Kaushalitting on:?03/30/2025 03:58 PM EDT
--- OUTSIDE RECORDS SUMMARY | 2025-03-30 15:59 | XMS_ITS | Continuity of Care Document ---
Author Organization [facility] Address [address] [place] [address] Phone Care Team Providers Care Cisco Administrator Name Role Phone Miguel ALBERTS, RVT, RPVI, [...] Providers Copied on Encounter [facility] [place], [address] [place] [address] Dr Stack [address], [place], [id number], [place] tel:[phone] CVR - [place] - [place] No Information 4 Miguel ALBERTS RVT, MARY Montez. [address] [place] [address], [place], [id number], [place]. tel:[phone] [facility] [place], [address] [place] [address] Dr Stack [address] 1000Dottie [place], [id number], [place] tel:[phone] CVR - [place] Varicose veins of left lower extremity with other complication s 4 Anjelica Reeder. [address] [place] [address], [facility] [place], [id number], [place]. tel:[phone] Referring Provider: Korina FAJARDO, [address] [place] [address], [address]. tel:[phone] [facility], [address] [place] [address] Dr [address], [place], [id number], [place] tel:[phone] CVR - [place] Encounter for follow-up examination after completed treatment for conditions other than malignant nePain in left leg 4 Miguel ALBERTS RVT, MARY Montez. [address] [place] [address], [place], [id number], [place]. tel:[phone] Referring Provider: Korina FAJARDO, [facility] [place], [address]. tel:[phone] [facility], [address] [place] [address] Dr Stack 1000[address] 1000Dottie [place], [id number], [place] tel:[phone] CVR - [place] Varicose veins of left lower extremity with other complication s 4 Miguel ALBERTS RVT, MARY Montez. [address] [place] [address], [place], [place], [id number], [place]. tel:[phone] Referring Provider: Korina FAJARDO, [address] [place] [address], [facility]. tel:[phone] Office/Outpt E&M Established 15 Mins- CT & [place] [facility], [address] [place] [address] Dr Stack 1000Suite Dottie Greer [place], [id number], [place] tel:[phone] [place] Pruritus, unspecifiedV aricose veins of left lower extremity with other complication sLocalized edemaCramp and spasmRestles s legs syndrome 4 Miguel ALBERTS RVT, MARY Montez. [address] [place] [address], [facility] [place], [id number], [place]. tel:[phone] Referring Provider: Korina FAJARDO, [address] [place] [address], [facility]. tel:[phone] [facility], [address] [place] [address] Dr Stack 1000SuDottie hodge MD, [id number], [place] tel:[phone] [place] Encounter for follow-up examination after completed treatment for conditions other than malignant neChronic venous hypertension (idiopathic) with other complication s of bilateral lower extremity 4 Miguel ALBERTS RVT, MARY Montez. [address] [place] [address], [facility] [place], [id number], [place]. tel:[phone] Referring Provider: Korina FAJARDO, [address] [place] [address], [facility]. tel:[phone] [facility], [address] [place] [address] Dr Stack 1000Suite 1000Dottie [place], [id number], [place] tel:[phone] CVR [facility] Encounter for follow-up examination after completed treatment for conditions other than malignant neoplasmVari cose veins of left lower extremity with pain 4 Elizabeth Beth. [address], [address], [place], [place], [id number], [place]. tel:[phone] Referring Provider: Korina FAJARDO, [address] [place] [address], [address]. tel:[phone] [facility], [address] [place] [address] [facility] 1000Suite [facility], [id number], [place] tel:[phone] CVR [facility] Varicose veins of left lower extremity with other complication s 4 Miguel ALBERTS RVT, MARY Montez. [address] [place] [address], [place], [id number], [place]. tel:[phone] Referring Provider: Korina FAJARDO, [address] [place] [address], [address]. tel:[phone] [facility], [address] [place] [address] Dr[facility] 1000Suite Dottie Greer [place], [id number], [place] tel:[phone] [facility] No Information 4 Miguel ALBERTS RVT, MARY Montez. [address] [place] [address], [place], [id number], [place]. tel:[phone] [facility], [address] [place] [address] Dr Stack 1000[address] 1000Dottie [place], [id number], [place] tel:[phone] CVR - [facility] Encounter for follow-up examination after completed treatment for conditions other than malignant neoplasmChro savi venous hypertension (idiopathic) with other complication s of right lower extremity 4 Miguel ALBERTS RVT, MARY Montez. [address] [place] [address], [place], [id number], [place]. tel:[phone] Referring Provider: Korina FAJARDO, [address] [place] [address], [facility]. tel:[phone] [facility] [place], [address] [place] [address] Dr Stack 1000SuDottie hodge MD, [id number], [place] tel:[phone] CVR - [facility] Varicose veins of right lower extremity with other complication s 4 Miguel ALBERTS RVT, MARY Montez. [address] [place] [address], [facility], [place], [id number], [place]. tel:[phone] Referring Provider: Korina FAJARDO, [address] [place] [address], [facility]. tel:[phone] [facility] [place], [address] [place] [address] Dr Stack 1000Dottie hodge MD, [id number], [place] tel:[phone] CVR [facility] Encounter for follow-up examination after completed treatment for conditions other than malignant neVaricose veins of right lower extremity with pain 4 Miguel ALBERTS RVT, RPVI Robert. [address] [place] [address], [facility], [place], [id number], [place]. tel:[phone] Referring Provider: Korina FAJARDO, [address] [place] [address], [facility]. tel:[phone] [facility], [address] [place] [address] Dr Stack 1000SuDottie hodge MD, [id number], [place] tel:[phone] CVR - [facility] No Information 4 Miguel ALBERTS RVT, MARY Montez. [address] [place] [address], [facility] [place], [place], [id number], [place]. tel:[phone] [facility], [address] [place] [address] Dr Stack 1000SuDottie hodge MD, [id number], [place] tel:[phone] CVR - [facility] Chronic venous hypertension (idiopathic) with inflammation of right lower extremity 4 Miguel ALBERTS RVT, MARY Montez. [address] [place] [address], [place], [place], [id number], . tel:[phone] Referring Provider: Korina FAJARDO, [address] [place] [address], [address]. tel:[phone] Offic/outpt E&m Estab 5 Min Trial- Telemedicine CT & [place] [facility], [address] [place] [address] Dr Stack 1000Suite Dottie Greer MD, [id number], [place] tel:[phone] [place] Localized edemaCramp and spasmRestles s legs syndromeVeno us insufficienc y (chronic) (peripheral) Pruritus, unspecified Feb- 4 Dayo Camarillo. [address] [place] [address], [place], [place], [id number], [place]. tel:[phone] Referring Provider: Korina FAJARDO, [address] [place] [address], [address]. tel:[phone] Office/Oupt E&M New Pt 45 Mins [facility], [address] [place] [address] Dr Stack 1000Suite Dottie Greer [place], [id number], [place] tel:[phone] [facility] Varicose veins of bilateral lower extremities with other complication Jarrod in right lower legPain in left lower legPain in right legRestless legs syndromePrur itus, unspecifiedP ain in left legCramp and spasmLocaliz ed edema 4 Miguel ALBERTS, RVT, MARY Montez. [address] [place] [address], [place], [place], [id number], [place]. tel:[phone] Referring Provider: LIS PHILLIPS MD MPH R, [address] [facility] [address], [place], [address]. tel:[phone] [facility], [address] [place] [address] Dr Stack 1000SuDottie hodge [place], [id number], [place] tel:[phone] CVR - [facility] Chronic venous hypertension (idiopathic) with other complication s of bilateral lower extremity 4 Miguel ALBERTS, RVT, MARY Montez. [address], [address], [place] lupe [place], [id number], [place]. tel:[phone] Referring Provider: Korina JIANGP, [address] [place], [address]. tel:[phone] Family History Family Member Type Diagnosis Age At Onset No Information Payers Payer name Insurance type Covered constitution party ID Keniacaitlin gerardobobbi(s) [facility] [id number] Social History Type Description Quantity Date Captured [...]
--- OUTSIDE RECORDS SUMMARY | 2025-03-30 15:59 | XMS_ITS ---
Author Organization [facility] Clarisa Vangley Address [address] [facility] [facility] [place] [address] Care Team Providers Care Slip Feeder Name Role Phone Wil ALBERTS, Annalee Justice Primary Care Provider Un available Kevin Crowder Unavailable [phone] Allergies Allergen (clinical drug ingredient) Drug/Non Drug [...] Ordered Date Performed Result Body Sit e 02275-KRECZNG NAIL, 1-5 03/15/2025 N/A 36670-Mloowbdu Plate 03/15/2025 N/A 39032-ZCBE SKIN LESIONS, 2 TO 4 03/15/2025 N/A K9540-HSEGJLRZ DYSTROPHIC NAILS ANY # 03/15/2025 N/A Encounters Encounter Location Date Provider Diagnosis [facility] [address] [address] 03/15/2025 Kevin Crowder Atherosclerosis of artery of [...] Treatment Pending Test Test Name Order Date 92868-THSVLLC NAIL, 1-5 03/15/2025 67485-Hiiilfmg Plate 03/15/2025 15239-SZXS SKIN LESIONS, 2 TO 4 03/15/20 A3715-TBDUCCAJ DYSTROPHIC NAILS ANY # Next Appt Details Follow Up: prn, Reason: Provider Name:Kevin Crowder , 06/17/2025 01:30:00 PM, [address] [place] [address], [address], Provider Name:Kevin Crowder , 08/12/2025 11:00:00 AM, [address] [place] [address], [phone], Provider Name:Kevin Crowder , 08/26/2025 12:00:00 PM, [address] [place] [address], [address], Procedure Notes * Category Sub-Category Detail Notes [...] Motrin was recommended for pain or discomfort (34925), CIRCULATION: Pt was advised as to the [...] instrumentation by the physician of record - 53219, Q8 Debride Nails 1-5 Procedure: Due to [...] necessary to maintain effective symptomatic relief - 75951 Nail Reduction Nail Reduction (-27) Trimming o [...] Notes * Donald DOWNEYaDOB:1955 (69 yo F)Acc No.[id number]:03/15/2025 Progress Note Patient:?Davida DOWNEY Provider:?Kevin Crowder DPM :1955???Age:69 Y???Sex:Female D ate:03/15/2025 Address:[address] [place] [address], [facility] Pcp:Zachery Giordano Subjective: * Chief Complaints: * [...] nail border,?T5??? Plan: * Treatment: 2.?Tinea unguium?Procedure: 51159-CFQFDJE NAIL, 1-5 3.?Ingrown nail?Procedure: 33736-Mmmygmbq Plate * Procedures:?Debride Nails 1-5:?Procedure:?Due to the [...] necessary to maintain effective symptomatic relief - 03004.?Keratoma Treatment:?Parring or Cutting of Benign Hyperkeratotic Lesion(s)?(-56) [...] instrumentation by the physician of record - 43599, Q8.?Nail Avulsion:?Location?Lateral nail border,?T5.?Anesthesia?2cc of 1 percent [...] Motrin was recommended for pain or discomfort (98379), CIRCULATION: Pt was advised as to the [...] DYSTROPHIC NAILS ANY #, Modifiers: XS , [id number] Avulsion Plate, Modifiers: XS , [id number] DEBRIDE NAIL, 1-5, Modifiers: XS 95580 TRIM SKIN LESIONS, 2 TO 4, Modifiers: [...] Crowder DPM Date:?2024 Generated for Елена linda/Kallie/Juancarlos on:?03/30/2025 03:58 PM EDT History and Physical Notes * [...]
--- OUTSIDE RECORDS SUMMARY | 2025-03-30 15:59 | XMS_ITS | Patient Health Record ---
Author Organization [facility] Clarisa Vangley Address [address] [place] [address] Care Team Providers Care Chemical Unit Operator Name Role Phone Wil ALBERTS, Annalee Justice Primary Care Provider Un available LakeshaKevin hill Unavailable [phone] Schmid Isabelle Unavailable [phone] Allergies Allergen (clinical drug ingredient) Drug/Non Drug [...] Osteoarthritis of midtarsal joint of left foot (6911968658005624 ) Osteoarthritis of midtarsal joint of left foot (M19.072) Active confirmed Problem Osteoarthritis of midtarsal joint of right foot (8249539604188366 ) Osteoarthritis of midtarsal joint of right foot (M19.071) Active confirmed Vital Signs Blood pressure diastolic 70 mm Hg 03/15/2025 Height 5 ft 5 in in 03/15/2025 Blood pressure systolic 130 mm Hg 03/15/2025 Weight 232 lbs 03/15/2025 BMI 38.6 kg/m2 03/15/2025 Procedures Procedure Date Ordered Date Performed Result Body Sit e 00058-VKNFKTL NAIL, 1-5 03/15/2025 N/A 28225-Vjzcxcmx Plate 03/15/2025 N/A 17019-BURE SKIN LESIONS, 2 TO 4 03/15/2025 N/A E2252-CMVESVKI DYSTROPHIC NAILS ANY # 03/15/2025 N/A S2978-QRIAKMDF DYSTROPHIC NAILS ANY # 12/07/2024 N/A 37503-MGGT SKIN LESIONS, 2 TO 4 12/07/2024 N/A 86417-Qfuyqgst Plate 12/07/2024 N/A 02597-BIUYCUM NAIL, 1-5 12/07/2024 N/A Encounters Encounter Location Date Provider Diagnosis [facility] [place] [address] [place] [address] 12/07/2024 Kevin Crowder Atherosclerosis of artery of [...] right foot M19.071 and Ingrown nail L60.[address] [facility] [address] 03/15/2025 Kevin Crowder Atherosclerosis of artery of both lower extremities I70.203 ; Tinea unguium B35.1 ; Pain in right toe(s) M79.674 ; Pain in left toe(s) M79.675 ; 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 ; Osteoarthritis of midtarsal joint of right foot M19.071 and Ingrown nail L60.[address] [address] 10/11/2024 Isabelle Schmid [address] [address] 12/07/2024 Kevin Crowder Assessments Encounter Date Diagnosis [...] X ray : Foot, right 3V 03/21/2021 24841-BQUOTBU NAIL, 1-5 12/07/2024 36856-GNPDOZX NAIL, 1-5 03/15/2025 61659-Afebotwd Plate 03/15/2025 09303-Tgwhjzhi Plate 12/07/2024 90728-LFNU SKIN LESIONS, 2 TO 4 12/07/19 78421-GVLS SKIN LESIONS, 2 TO 4 03/15/20 K6668-FAZHQXDA DYSTROPHIC NAILS ANY # U6092-YJDSNPMO DYSTROPHIC NAILS ANY # X ray : Ankle, right 3V 03/21/2021 Next Appt Details Provider Name:Kevin Crowder , 06/17/2025 01:30:00 PM, [address] [place] [address], [phone], Provider Name:Kevin Crowder , 08/12/2025 11:00:00 AM, [address] [place], [address], Provider Name:Kevin Crowder , 08/26/2025 12:00:00 PM, [address] [facility], [place], [address], Insurance Providers Payer Name Payer Address Payer Phone Subscriber Number Group Number Insured Name Patient Relationship to Insured Coverage Start Date Coverage End Date Medicare National [employer] [address] [place] [address] [id number] JoseDonald castanoa Self - patient is the insured [facility] [address] [place] [address] [id number] Donald Downeya Self - patient is the insured Medical (General) History Medical History History ICD Code Back,Hip,and Knee pain Broken bones Diverticulosis Headaches/Migraines Poor circulation Vascular phlebitis (clots) Measles Chicken pox Arthritis Heart disease Kidney disease Sciatica Restless leg syndrome Surgical History Surgery Date(Month/Year) hysterectomy 02/2000 cardiac catheterization 2020 Hospitalization History Reason Date(Month/Year) C -AFib/ Kidney Failure 08/2020
--- OUTSIDE RECORDS SUMMARY | 2025-03-30 15:59 | XMS_ITS | Clinical Summary ---
Author Organization [facility] Facility Address [address] [address] Care Team Providers Care Hardwood Floor Sander Name Role Phone Dena Gore MD Primary Care Provider [phone] Allergies Active Allergy Reactions Criticality Noted Date [...] require that she be seen at the [facility] but she should definitely be quarantined since onset of her symptoms Friday for 14 days. Patient works at [employer] and would like a note for work [...] of the hips bilaterally, referral to [facility] orthopedics for consultation question management. The [...] prior to testing. Until then, can try qndh-koz-wkwowlh antihistamine such as generic versions of Margy, [...] age to complete this topic Insurance Medicare [facility] Medicare [facility] Care Teams Hardwood Floor Sander Relationship Specialty Start Date End Date Dena Gore MD [address] [place] [id number] PCP - General Internal Medicine 03/13/22
--- OUTSIDE RECORDS SUMMARY | 2025-03-30 15:59 | XMS_ITS ---
Author Organization [facility] Address [address] [place] [address] Care Team Providers Care Control System Manager Name Role Phone Wil ALBERTS, Annalee Justice Primary Care Provider Un available Kevin Crowder Unavailable [phone] Isabelle Schmid Unavailable [phone] REASON FOR VISIT sooner appt Encounters Encounter Location Date Provider Diagnosis [address] [address] 12/16/2024 Isabelle Schmid Plan Of Treatment Next Appt Details Provider Name:Kevin Crowder , 06/17/2025 01:30:00 PM, [address] [place] [address], [address], Provider Name:Kevin Crowder , 08/12/2025 11:00:00 AM, [address] [place] [address], [address], Provider Name:Kevin Crowder , 08/26/2025 12:00:00 PM, [address] [place] [address], [address], Progress Notes * Loan DOWNEYB:1955 (69 yo F)Acc No.[id number]:12/16/2024 Progress Notes Patient:?Davida DOWNEY Provider:?Isabelle Schmid DPM :1955???Age:69 Y???Sex:Female D ate:12/16/2024 Address:[address] [place] [address], [id number] Pcp:Zachery Giordano Subjective: * Chief Complaints: * [...] DPM Date:?0 12/16/2024 Generated for Елена linda/Kallie/Kaushalitting on:?03/30/2025 03:59 PM EDT
[2025-03-30 16:02] LABS: Creatinine, mg/dL 53.64
[2025-03-30 17:00] LABS: Total Volume 24 Hour Urine 1825 mL
[2025-03-31 22:02] LABS: Calcium, 24 Hr Urine 184 mg/24 h; Calcium/Creatinine Ratio 174 mg/g creat (30-275); Creatinine 24Hr Urine 1.06 g/24 h (0.50-2.15)
== END 2025-03-30 02:01 | disposition home or self-care (01) ==
LOC: HO.LNP 02:00
PROVIDERS: Visit Provider Internal Medicine Endocrinology, Diabetes & Metabolism
DX: M81.0 Age-related osteoporosis without current pathological fracture (principal)
CPT/HCPCS: 82340; 82570

== ENCOUNTER 2025-04-06 13:00 | Outpatient (RCR) | payer MEDICARE, SELFPAY ==
--- NOTE | 2025-03-18 11:32 | MHC.PT.EP ---
[facility] [place] [facility] [place] [facility] [place] [facility] [address] Gay Trejo [address] [phone] F: [phone] F: [phone] F: [phone] F: [phone] Physical Therapy Plan of Care Date of Evaluation: 03/18/25 Date of Surgery: Diagnosis: This is a 69 yo female presenting to skilled PT with a script for patellofemoral arthritis of L knee. Assessment: This is a 69 yo female presenting to skilled PT with a script for patellofemoral arthritis of L knee. Patient is being followed by [facility] ortho. At her last appointment note states: We discussed options today which include physical therapy, Celebrex for anti inflammation and injections. She is not interested in steroid injections however she would like to proceed with gel. I did submit for prior authorization. Once this is complete we will contact her to book an appointment. No follow up has been made yet and she reports that she does not want do to the gel injection. Patient here today reporting many years of knee pain. Pain is located anterior and medial patella. Pain is described as sharp at times. Pain improves with rest. Pain increases with walking, stairs (goes sideways) and some transfers (getting out of the car). She does use a brace, ice, heat or any other pain management. She reports some locking and has had a fall from her knee giving out (last year). Assessment reveals pain that ranges from up to a /10 at the worst. Patient demos decreased L knee but also ankle and hip ROM, strength of B LE's, TTP at patella tendon, with patella mobs, medial and lateral joint lines, decreased gait pattern and associated balance and impaired posture with forward head, forward trunk, bent knees and rounded shoulders. Based on functional limitations, impaired QOL and pain tolerance patient is a good candidate for skilled PT 2x/wk for 4wks. Frequency and Duration: The patient will be seen 2x/wk for 4wks Short Term Goals: (in 2 weeks) Patient will improve knee AROM by at least 10 degs without assist Patient will demo good undestanding and performance of quad set in multiple different planes without cues from PT Patient will be I in HEP [facility] Goals: (in 4 weeks) Patient will report 75% improvement in balance and strength of LLE as evidenced by reports no of falls or buckling in LE Patient will improve LEFs by 10 points Patient will demo WFL AROM of knee and ankle Patient will demo proper squat and lift techniques without increase in pain Patient will demo WFL ascending and descending stairs Treatment Plan: Modalities to reduce pain, spasms and effusion. Manual therapy to restore motion and function. Therapeutic exercise to improve strength and flexibility. Neuromuscular re-education for posture and balance. Therapeutic activities to return to functional activities of daily living. Electronically signed by: Shaniqua Yoon PT Please sign and return to therapist. Thank you for your referral.
--- NOTE | 2025-05-05 08:47 | MHC.PT.DC ---
[facility] [place] Office [place] Office [place] Office [address] Gay Trejo [address] [phone] F: [phone] F: [phone] F: [phone] F: [phone] Physical Therapy Discharge Report Diagnosis: This is a 69 yo female presenting to skilled PT with a script for patellofemoral arthritis of L knee. Date of Surgery: Date of Evaluation: 03/18/25 Date of Discharge: 05/05/25 Treatments to Date: 7 Cancellations to Date: 0 No Shows to Date: 0 Discharge Status: Achieved Goals Improved Function Independent with HEP Patient Elected to Stop Discharge Summary: At her last scheduled session patient was unable to tolerate hills on the stepper on level 1 so I adjusted the seat and performed a quick start instead which was better tolerated. Declined the gastroc stretch due to ankle pain. She was going on vacation for over a month so her chart was DC'd after 30 days. She did express interest in continuing PT when she returned and I educated her that she will need a new evaluation at that point. PT was very limited in progression with her due to pain and endurance. Highly encouraged her to exercise every day. DC to HEP. Electronically signed by: Shaniqua Yoon PT Please sign and return to therapist. Thank you for your referral.
== END 2025-05-05 08:47 | disposition home or self-care (01) ==
LOC: HO.PTCHIC 13:00
PROVIDERS: PCP Internal Medicine; Visit Provider Physician Assistant
DX: M17.12 Unilateral primary osteoarthritis, left knee (principal)
CPT/HCPCS: 97110; 97162

== ENCOUNTER 2025-04-07 11:05 | Outpatient (AMB) | payer MEDICARE, SELFPAY ==
[2025-04-07 11:23] LABS: Prothrombin Time Whole Bld POC 27.9 sec (11.1-13.5); ~PT, ~INR - Anti Coag Clinic 2.3 (0.9-1.1)
--- NOTE | 2025-04-07 11:29 | MHC.OFFVISCO ---
Intake Intake Visit Reasons: Anticoagulation Allergies Sulfa (Sulfonamide Antibiotics) [SULFA(SULFONAMIDE ANTIBIOTICS)] Allergy (Unknown, Verified 04/07/25 11:15) RASH codeine Adverse Reaction (Verified 04/07/25 11:15) Vomiting oxycodone Adverse Reaction (Verified 04/07/25 11:15) Gastrointestinal Upset Medication List - Last Reconciled 04/07/25 by Mirna Trejo RN amiodarone 200 mg PO DAILY ascorbate calcium (vitamin C) 500 mg PO DAILY bumetanide 1 mg (1/2 x 2 mg) PO DAILY cholecalciferol (vitamin D3) 10 mcg PO DAILY gabapentin 300 mg PO DAILY multivitamin 1 tab PO DAILY warfarin See Protocol 2.5 mg orally X5 DAYS/ 5MG X 2 DAYS ( and ); Nursing Note INR: 2.3 in therapeutic range Medications and supplements reviewed No changes in health, diet, medications, or supplements, Denies any signs and symptoms of bleeding or bruising or clotting. Bleeding, bruising, clotting discussed Nutritional guidance given Dose: 5mg x 5days / 2.5mg x 2days F/U INR: 1 month - will be away for vacation Patient verbalizes understanding of instructions given Anti-Coag Initial Assessment Social Hx Patient Tobacco Use Status: Never used Tobacco alcohol intake: never Coding Level of Care Code Est Patient Level 1 Diagnoses Current use of anticoagulant therapy Z79.01 Assessment & Plan Assessment & Plan (1) Current use of anticoagulant therapy: Code(s): Z79.01 - [facility] (current) use of anticoagulants Category: Medical Medications: New calcium carbonate (Tums) PO
--- OUTSIDE RECORDS SUMMARY | 2025-04-07 12:17 | XMS_ITS ---
Author Organization [facility] Clarisa Vangley Address [address] [facility] [place] [address] Care Team Providers Care Trimming Caser Name Role Phone Wil ALBERTS, Annalee Justice Primary Care Provider Un available Keivn Crowder Unavailable [phone] Allergies Allergen (clinical drug ingredient) Drug/Non Drug [...] Ordered Date Performed Result Body Sit e 20331-LLJWQIW NAIL, 1-5 03/15/2025 N/A 61838-Vwxdkmij Plate 03/15/2025 N/A 44532-XZAQ SKIN LESIONS, 2 TO 4 03/15/2025 N/A Y6263-UEKROJAZ DYSTROPHIC NAILS ANY # 03/15/2025 N/A Encounters Encounter Location Date Provider Diagnosis [facility] [address] [address] 03/15/2025 Kevin Crowder Atherosclerosis of artery of [...] Treatment Pending Test Test Name Order Date 37265-SNBPXYF NAIL, 1-5 03/15/2025 04661-Wqqlhxmz Plate 03/15/2025 56997-HJPJ SKIN LESIONS, 2 TO 4 03/15/20 V2730-SAPGLBEK DYSTROPHIC NAILS ANY # Next Appt Details Follow Up: prn, Reason: Provider Name:Kevin Crowder , 06/17/2025 01:30:00 PM, [address] [place] [address], [address], Provider Name:Kevin Crowder , 08/12/2025 11:00:00 AM, [address] [place] [address], [address], Provider Name:Kevin Crowder , 08/26/2025 12:00:00 PM, [address] [place] [address], [address], Procedure Notes * Category Sub-Category Detail Notes [...] Motrin was recommended for pain or discomfort (21773), CIRCULATION: Pt was advised as to the [...] instrumentation by the physician of record - 62067, Q8 Debride Nails 1-5 Procedure: Due to [...] necessary to maintain effective symptomatic relief - 02384 Nail Reduction Nail Reduction (-27) Trimming o [...] Notes * Donald DOWNEYaDOB:1955 (69 yo F)Acc No.[id number]:03/15/2025 Progress Note Patient:?Davida DOWNEY Provider:?Kevin Crowder DPM :1955???Age:69 Y???Sex:Female D ate:03/15/2025 Address:[address] [place] [address], [facility] Pcp:Zachery Giordano Subjective: * Chief Complaints: * [...] nail border,?T5??? Plan: * Treatment: 2.?Tinea unguium?Procedure: 16617-YHWBUAR NAIL, 1-5 3.?Ingrown nail?Procedure: 51796-Fstptdxe Plate * Procedures:?Debride Nails 1-5:?Procedure:?Due to the [...] necessary to maintain effective symptomatic relief - 60967.?Keratoma Treatment:?Parring or Cutting of Benign Hyperkeratotic Lesion(s)?(-56) [...] instrumentation by the physician of record - 03629, Q8.?Nail Avulsion:?Location?Lateral nail border,?T5.?Anesthesia?2cc of 1 percent [...] Motrin was recommended for pain or discomfort (44613), CIRCULATION: Pt was advised as to the [...] DYSTROPHIC NAILS ANY #, Modifiers: XS , [id number] Avulsion Plate, Modifiers: XS , [id number] DEBRIDE NAIL, 1-5, Modifiers: XS 40477 TRIM SKIN LESIONS, 2 TO 4, Modifiers: [...] Crowder DPM Date:?2024 Generated for Елена linda/Kallie/Juancarlos on:?04/07/2025 12:17 PM EDT History and Physical Notes * [...]
--- OUTSIDE RECORDS SUMMARY | 2025-04-07 12:17 | XMS_ITS | Continuity of Care Document ---
Author Organization [facility] Address [address] [place] [address] Phone Care Team Providers Care Risk Manager Name Role Phone Miguel ALBERTS, RVT, RPVI, [...] Providers Copied on Encounter [facility] [place], [address] [place] [address] Dr [address], [place], [id number], [place] tel:[phone] CVR - [place] - [place] No Information 4 Miguel ALBERTS RVT, MARY Montez. [address] [place] [address], [place], [id number], [place]. tel:[phone] [facility] [place], [address] [place] [address] Dr [address] 1000Dottie [place], [id number], [place] tel:[phone] CVR - [place] - [place] Varicose veins of left lower extremity with other complication s 4 Anjelica Reeder. [address] [place] [address], [facility] [place] [place], [id number], [place]. tel:[phone] Referring Provider: Korina FAJARDO, [address] [place] [address], [address]. tel:[phone] [facility], [address] [place] [address] Dr [address], [place], [id number], [place] tel:[phone] CV[place] - [place] Encounter for follow-up examination after completed treatment for conditions other than malignant nePain in left leg 4 Miguel ALBERTS RVT, MARY Montez. [address] [place] [address], [place], [id number], [place]. tel:[phone] Referring Provider: Korina FAJARDO, [facility] [place], [address]. tel:[phone] [facility], [address] [place] [address] Dr [address] 1000[address] 1000Dottie [place], [id number], [place] tel:[phone] CVR - [place] - [place] Varicose veins of left lower extremity with other complication s 4 Miguel ALBERTS RVT, MARY Montez. [address] [place] [address], [place], [place], [id number], [place]. tel:[phone] Referring Provider: Korina FAJARDO, [address] [place] [address], [facility]. tel:[phone] Office/Outpt E&M Established 15 Mins- CT & [place] [facility], [address] [place] [address] Dr Stack 1000Suite Dottie Greer [place], [id number], [place] tel:[phone] CVR - [place] - [place] Pruritus, unspecifiedV aricose veins of left lower extremity with other complication sLocalized edemaCramp and spasmRestles s legs syndrome 4 Miguel ALBERTS RVT, MARY Montez. [address] [place] [address], [facility] [place], [id number], [place]. tel:[phone] Referring Provider: Korina FAJARDO, [address] [place] [address], [facility]. tel:[phone] [facility], [address] [place] [address] Dr Stack 1000SuDottie hodge MD, [id number], [place] tel:[phone] CVR - [place] - [place] Encounter for follow-up examination after completed treatment for conditions other than malignant neChronic venous hypertension (idiopathic) with other complication s of bilateral lower extremity 4 Miguel ALBERTS RVT, MARY Montez. [address] [place] [address], [facility], [id number], [place]. tel:[phone] Referring Provider: Korina FAJARDO, [address] [place] [address], [facility]. tel:[phone] [facility], [address] [place] [address] Dr Stack 1000Suite 1000Dottie [place], [id number], [place] tel:[phone] CVR [facility] Encounter for follow-up examination after completed treatment for conditions other than malignant neoplasmVari cose veins of left lower extremity with pain 4 Elizabeth Beth. [address] [facility] [address], [address], [place], [place], [id number], [place]. tel:[phone] Referring Provider: Korina FAJARDO, [address] [place] [address], [address]. tel:[phone] [facility], [address] [place] [address] [facility] [address]Suite [facility] [place], [id number], [place] tel:[phone] CVR [facility] Varicose veins of left lower extremity with other complication s 4 Miguel ALBERTS RVT, MARY Montez. [address] [place] [address], [place], [id number], [place]. tel:[phone] Referring Provider: Korina FAJARDO, [address] [place] [address], [address]. tel:[phone] [facility], [address] [place] [address] [facility] 1000Suite Dottie Greer [place], [id number], [place] tel:[phone] [facility] No Information 4 Miguel ALBERTS RVT, MARY Montez. [address] [place] [address], [place], [id number], [place]. tel:[phone] [facility], [address] [place] [address] Dr Stack 1000[address] 1000Dottie [place], [id number], [place] tel:[phone] CVR - [facility] Encounter for follow-up examination after completed treatment for conditions other than malignant neoplasmChro savi venous hypertension (idiopathic) with other complication s of right lower extremity 4 Miguel ALBERTS RVT, MARY Montez. [address] [place] [address], [place], [id number], [place]. tel:[phone] Referring Provider: Korina FAJARDO, [address] [place] [address], [facility]. tel:[phone] [facility] MD [place], [address] [place] [address] Dr Stack 1000SuDottie hodge MD, [id number], [place] tel:[phone] CVR - [facility] Varicose veins of right lower extremity with other complication s 4 Miguel ALBERTS RVT, MARY Montez. [address] [place] [address], [facility], [place], [id number], [place]. tel:[phone] Referring Provider: Korina FAJARDO, [address] [place] [address], [facility]. tel:[phone] [facility] [place], [address] [place] [address] Dr Stack 1000Dottie hodge MD, [id number], [place] tel:[phone] CVR [facility] Encounter for follow-up examination after completed treatment for conditions other than malignant neVaricose veins of right lower extremity with pain 4 Miguel ALBERTS RVT, RPVI Robert. [address] [place] [address], [facility], [place], [id number], [place]. tel:[phone] Referring Provider: Korina FAJARDO, [address] [place] [address], [facility]. tel:[phone] [facility], [address] [place] [address] Dr Stack 1000SuDottie hodge MD, [id number], [place] tel:[phone] CVR - [facility] No Information 4 Miguel ALBERTS RVT, MARY Montez. [address] [place] [address], [facility] [place], [place], [id number], [place]. tel:[phone] [facility], [address] [place] [address] Dr Stack 1000SuDottie hodge MD, [id number], [place] tel:[phone] CVR - [facility] Chronic venous hypertension (idiopathic) with inflammation of right lower extremity 4 Miguel ALBERTS RVT, MARY Montez. [address] [place] [address], [place], [place], [id number], . tel:[phone] Referring Provider: Korina FAJARDO, [address] [place] [address], [address]. tel:[phone] Offic/outpt E&m Estab 5 Min Trial- Telemedicine CT & [place] [facility], [address] [place] [address] Dr Stack 1000Suite Dottie Greer MD, [id number], [place] tel:[phone] CVR - [place] - [place] Localized edemaCramp and spasmRestles s legs syndromeVeno us insufficienc y (chronic) (peripheral) Pruritus, unspecified Feb- 4 Dayo Camarillo. [address] [place] [address], [place], [place], [id number], [place]. tel:[phone] Referring Provider: Korina FAJARDO, [address] [place] [address], [address]. tel:[phone] Office/Oupt E&M New Pt 45 Mins [facility], [address] [place] [address] Dr Stack 1000Suite Dottie Greer [place], [id number], [place] tel:[phone] CVR - [place] - [place] Varicose veins of bilateral lower extremities with other complication Jarrod in right lower legPain in left lower legPain in right legRestless legs syndromePrur itus, unspecifiedP ain in left legCramp and spasmLocaliz ed edema 4 Miguel ALBERTS, RVT, MARY Montez. [address] [place] [address], [place], [place], [id number], [place]. tel:[phone] Referring Provider: LIS PHILLIPS MD MPH R, [address] [facility] [address], [place], [address]. tel:[phone] [facility], [address] [place] [address] Dr Stack 1000SuDottie hodge [place], [id number], [place] tel:[phone] [facility]R - [facility] Chronic venous hypertension (idiopathic) with other complication s of bilateral lower extremity 4 Miguel ALBERTS, RVT, MARY Montez. [address] [facility], [address], [place], [id number], [place]. tel:[phone] Referring Provider: Korina JIANGP, [address] [place], [address]. tel:[phone] Family History Family Member Type Diagnosis Age At Onset No Information Payers Payer name Insurance type Covered democrat ID Keniacaitlin gerardobobbi(s) [facility] [id number] Social History Type Description Quantity Date Captured [...]
--- OUTSIDE RECORDS SUMMARY | 2025-04-07 12:18 | XMS_ITS ---
Author Organization [facility] Address [address] [place] [address] Care Team Providers Care Document Management Technician Name Role Phone Wil ALBERTS, Annalee Justice Primary Care Provider Un available Kevin Crowder Unavailable [phone] Isabelle Schmid Unavailable [phone] REASON FOR VISIT sooner appt Encounters Encounter Location Date Provider Diagnosis [address] [address] 12/16/2024 Isabelle Schmid Plan Of Treatment Next Appt Details Provider Name:Kevin Crowder , 06/17/2025 01:30:00 PM, [address] [place] [address], [phone], Provider Name:Kevin Crowder , 08/12/2025 11:00:00 AM, [address] [place] [address], [phone], Provider Name:Kevin Crowder , 08/26/2025 12:00:00 PM, [address] [place] [address], [phone], Progress Notes * Loan DOWNEYB:1955 (69 yo F)Acc No.[id number]:12/16/2024 Progress Notes Patient:?Davida DOWNEY Provider:?Isabelle Schmid DPM :1955???Age:69 Y???Sex:Female D ate:12/16/2024 Address:[address] [place] [address], [place] Pcp:Zachery Giordano Subjective: * Chief Complaints: * [...] DPM Date:?0 12/16/2024 Generated for Елена linda/Kallie/Kaushalitting on:?04/07/2025 12:17 PM EDT
--- OUTSIDE RECORDS SUMMARY | 2025-04-07 12:18 | XMS_ITS | Patient Health Record ---
Author Organization [facility] Clarisa Vangley Address [address] [place] [address] Care Team Providers Care Economic Analysis Director Name Role Phone Wil ALBERTS, Annalee Justice Primary Care Provider Un available LakeshaKevin hill Unavailable [phone] Schmid Isabelle Unavailable [phone] Allergies Allergen (clinical drug ingredient) Drug/Non Drug [...] Osteoarthritis of midtarsal joint of left foot (3890544748017670 ) Osteoarthritis of midtarsal joint of left foot (M19.072) Active confirmed Problem Osteoarthritis of midtarsal joint of right foot (5702090531530879 ) Osteoarthritis of midtarsal joint of right foot (M19.071) Active confirmed Vital Signs Blood pressure diastolic 70 mm Hg 03/15/2025 Height 5 ft 5 in in 03/15/2025 Blood pressure systolic 130 mm Hg 03/15/2025 Weight 232 lbs 03/15/2025 BMI 38.6 kg/m2 03/15/2025 Procedures Procedure Date Ordered Date Performed Result Body Sit e 54538-IYEFDKG NAIL, 1-5 12/07/2024 N/A 10005-Hfzroxop Plate 12/07/2024 N/A 45176-BGHX SKIN LESIONS, 2 TO 4 12/07/2024 N/A U0207-KBJTWRAS DYSTROPHIC NAILS ANY # 12/07/2024 N/A 30379-HLBYRHD NAIL, 1-5 03/15/2025 N/A 82842-Fybqtkey Plate 03/15/2025 N/A 59433-JYMP SKIN LESIONS, 2 TO 4 03/15/2025 N/A E8111-HZPHYEYN DYSTROPHIC NAILS ANY # 03/15/2025 N/A Encounters Encounter Location Date Provider Diagnosis [facility] [address] [address] 12/07/2024 Kevin Crowder Atherosclerosis of artery of [...] right foot M19.071 and Ingrown nail L60.[address] [facility] [address] 03/15/2025 Kevin Crowder Atherosclerosis of artery of both lower extremities I70.203 ; Tinea unguium B35.1 ; Pain in right toe(s) M79.674 ; Pain in left toe(s) M79.675 ; 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 ; Osteoarthritis of midtarsal joint of right foot M19.071 and Ingrown nail L60.[address] [address] 10/11/2024 Isabelle Schmid [address] [address] 12/07/2024 Kevin Crowder Assessments Encounter Date Diagnosis [...] X ray : Foot, right 3V 03/21/2021 56970-FWQUAMN NAIL, 1-5 12/07/2024 00186-EUWWMFE NAIL, 1-5 03/15/2025 91905-Nglaxenb Plate 03/15/2025 85006-Dquongpn Plate 12/07/2024 16683-VVQF SKIN LESIONS, 2 TO 4 12/07/19 65860-MZZI SKIN LESIONS, 2 TO 4 03/15/20 F0423-VWNZXBZX DYSTROPHIC NAILS ANY # K8566-ITMFNRBL DYSTROPHIC NAILS ANY # X ray : Ankle, right 3V 03/21/2021 Next Appt Details Provider Name:Kevin Crowder , 06/17/2025 01:30:00 PM, [address] [place] [address], [phone], Provider Name:Kevin Crowder , 08/12/2025 11:00:00 AM, [address] [place], [address], Provider Name:Kevin Crowder , 08/26/2025 12:00:00 PM, [address] [facility], [place], [address], Insurance Providers Payer Name Payer Address Payer Phone Subscriber Number Group Number Insured Name Patient Relationship to Insured Coverage Start Date Coverage End Date Medicare National [employer] [address] [place] [address] [id number] JoseDonald castanoa Self - patient is the insured 1 [employer] [facility] [address] [place] [address] [id number] Donald Downeya Self - patient is the [...]
--- OUTSIDE RECORDS SUMMARY | 2025-04-07 12:18 | XMS_ITS | Clinical Summary ---
Author Organization [facility] Facility Address [address] [address] Care Team Providers Care Bike Mechanic Name Role Phone Dena Gore MD Primary Care Provider [phone] Allergies Active Allergy Reactions Criticality Noted Date [...] require that she be seen at the [facility] but she should definitely be quarantined since onset of her symptoms Friday for 14 days. Patient works at [employer] and would like a note for work [...] disease of the hips bilaterally, referral to [facility] orthopedics for consultation question management. The [...] prior to testing. Until then, can try mupl-vqd-wrohvkq antihistamine such as generic versions of Margy, [...] age to complete this topic Insurance Medicare [facility] Medicare [facility] Care Teams Bike Mechanic Relationship Specialty Start Date End Date Dena Gore MD [address] [place] [id number] PCP - General Internal Medicine 03/13/22
--- OUTSIDE RECORDS SUMMARY | 2025-04-07 12:18 | XMS_ITS ---
Author Organization [facility] Address [address] [place] [address] Care Team Providers Care Bar Porter Name Role Phone Wil ALBERTS, Annalee Justice Primary Care Provider Un available Kevin Crowder Unavailable [phone] REASON FOR VISIT comfort plus 9 9 half Encounters Encounter Location Date Provider Diagnosis [address] [address] 12/07/2024 Kevin Crowder Plan Of Treatment Next Appt Details Provider Name:Kevin Crowder , 06/17/2025 01:30:00 PM, [address] [place] [address], [address], Provider Name:Kevin Crowder , 08/12/2025 11:00:00 AM, [address] [place] [address], [address], Provider Name:Kevin Crowder , 08/26/2025 12:00:00 PM, [address] [place] [address], [address], Progress Notes * Loan DOWNEYB:1955 (69 yo F)Acc No.[id number]:12/07/2024 Patient:Davida ESPARZA :1955???Age:69 Y???Sex:Female Address:[address] [place] [address], [place], [address] * true * Date:? Generated for Елена linda/Kallie/Kaushalitting on:?04/07/2025 12:17 PM EDT
== END 2025-04-07 11:34 | disposition home or self-care (01) ==
LOC: HO.ACS 11:05
PROVIDERS: PCP Internal Medicine; Visit Provider Internal Medicine Medical Oncology
DX: Z79.01 Long term (current) use of anticoagulants (principal)

== ENCOUNTER → 2025-04-07 11:05 | Outpatient (BNVA) | payer MEDICARE, SELFPAY | PROVIDERS: PCP Internal Medicine; Visit Provider Internal Medicine Medical Oncology | DX: I48.0 Paroxysmal atrial fibrillation (principal); Z79.01 Long term (current) use of anticoagulants; Z51.81 Encounter for therapeutic drug level monitoring | CPT/HCPCS: 85610; 99211 ==

== ENCOUNTER 2025-05-11 11:34 | Outpatient (AMB) | payer MEDICARE, SELFPAY ==
[2025-05-11 11:40] LABS: Prothrombin Time Whole Bld POC 21.1 sec (11.1-13.5); ~PT, ~INR - Anti Coag Clinic 1.8 (0.9-1.1)
--- NOTE | 2025-05-11 11:47 | MHC.OFFVISCO ---
Intake Intake Visit Reasons: Anticoagulation Allergies Sulfa (Sulfonamide Antibiotics) (SULFA(SULFONAMIDE ANTIBIOTICS)) Allergy (Unknown, Verified 05/11/25 11:35) RASH codeine Adverse Reaction (Verified 05/11/25 11:35) Vomiting oxycodone Adverse Reaction (Verified 05/11/25 11:35) Gastrointestinal Upset Medication List - Last Reconciled 05/11/25 by Rachael Dunlap RN amiodarone 200 mg PO DAILY ascorbate calcium (vitamin C) 500 mg PO DAILY bumetanide 1 mg (1/2 x 2 mg) PO DAILY calcium carbonate (Tums) PO cholecalciferol (vitamin D3) 10 mcg PO DAILY gabapentin 300 mg PO DAILY multivitamin 1 tab PO DAILY warfarin See Protocol 2.5 mg orally X5 DAYS/ 5MG X 2 DAYS ( and ); Nursing Note PT.STATES THAT SHE MISSED A DOSE RECENTLY. NO CP,SOB,DIET/MED CHANGES,FALLS OR SX OF BLEEDING. BOOST TO 5MGM TODAY THEN CONTINUE USUAL DOSE AND FOLLOW-UP IN 4 WEEKS. NO GREENS 1-2 DAYS GOOD UNDERSTANDING OF DOSING INSTR. Anti-Coag Initial Assessment Social Hx Patient Tobacco Use Status: Never used Tobacco alcohol intake: never Coding Level of Care Code Est Patient Level 1 Diagnoses Current use of anticoagulant therapy Z79.01 Assessment & Plan Assessment & Plan (1) Current use of anticoagulant therapy: Code(s): Z79.01 - FPC (current) use of anticoagulants Category: Medical
--- OUTSIDE RECORDS SUMMARY | 2025-05-11 13:34 | XMS_ITS | Clinical Summary ---
Author Organization [facility] Facility Address [address] [address] Care Team Providers Care Subsorter Name Role Phone Dena Gore MD Primary Care Provider [phone] Allergies Active Allergy Reactions Criticality Noted Date [...] require that she be seen at the [facility] but she should definitely be quarantined since onset of her symptoms Friday for 14 days. Patient works at [employer] and would like a note for work [...] disease of the hips bilaterally, referral to [facility] orthopedics for consultation question management. The [...] prior to testing. Until then, can try zfjv-ert-asvvsru antihistamine such as generic versions of Margy, [...] Vaccine: 50+ Years (2 of 2 - PPSV23, PCV20, or PCV21) 04/23/2019 02/26/2019 Influenza Vaccine (Season Ended) 2025 08/06/2017, 09/13/2014, 08/31/2013, Additional history exists Pneumococcal Vaccine: Peds (0 to 5 Years) and At-Risk Patients (6 to 49 Years) Discontinued 02/26/2019 Hepatitis B Vaccine Aged Out No longe r eligible based on patient's age to complete this topic Insurance Medicare [facility] Medicare [facility] Care Teams Subsorter Relationship Specialty Start Date End Date Dena Gore MD [facility] [place] [address] PCP - General Internal Medicine 03/13/22
== END 2025-05-11 11:52 | disposition home or self-care (01) ==
LOC: HO.ACS 11:34
PROVIDERS: PCP Internal Medicine; Visit Provider Internal Medicine Medical Oncology
DX: Z79.01 Long term (current) use of anticoagulants (principal)

== ENCOUNTER → 2025-05-11 11:34 | Outpatient (BNVA) | payer MEDICARE, SELFPAY | PROVIDERS: PCP Internal Medicine; Visit Provider Internal Medicine Medical Oncology | DX: I48.0 Paroxysmal atrial fibrillation (principal); Z79.01 Long term (current) use of anticoagulants; Z51.81 Encounter for therapeutic drug level monitoring | CPT/HCPCS: 85610; 99211 ==

== ENCOUNTER 2025-06-08 11:15 | Outpatient (AMB) | payer MEDICARE, SELFPAY ==
--- OUTSIDE RECORDS SUMMARY | 2024-07-14 09:41 | XMS_ITS | Continuity of Care Document ---
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 [address] [place] [address], [place], [id number], [place]. tel:[phone] [place] [facility] [place], [address] [place] [address] Dr Stack 1000Suite 1000Dottie [place], [id number], [place] tel:[phone] CV[place] - [place] Varicose veins of left lower extremity with other complication s 4 Anjelica Reeder. [address] [place] [address], [facility] [place] [place], [id number], [place]. tel:[phone] Referring Provider: Korina FAJARDO, [address] [place] [address], [address]. tel:[phone] [place] [facility], [address] [place] [address] Dr Stack 1000Suite 1000, [place], [id number], [place] tel:[phone] [facility] Encounter for follow-up examination after completed treatment for conditions other than malignant nePain in left leg 4 Miguel ALBERTS RVT, MARY Montez. [address] [place] [address], [place], [id number], [place]. tel:[phone] Referring Provider: Korina FAJARDO, [facility] [place], [address]. tel:[phone] [place] [facility], [address] [place] [address] Dr Stack 1000Suite 1000Dottie [place], [id number], [place] tel:[phone] [place] Varicose veins of left lower extremity with other complication s 4 Miguel ALBERTS RVT, MARY Montez. [address] [place] [address], [place], [place], [id number], [place]. tel:[phone] Referring Provider: Korina FAJARDO, [address] [place] [address], [facility]. tel:[phone] Office/Outpt E&M Established 15 Mins- CT & [place] [facility], [address] [place] [address] Dr Stack 1000Suite Dottie Greer [place], [id number], [place] tel:[phone] CV[place] - [place] Pruritus, unspecifiedV aricose veins of left lower extremity with other complication sLocalized edemaCramp and spasmRestles s legs syndrome 4 Miguel ALBERTS RVT, MARY Montez. [address] [place] [address], [facility] [place], [id number], [place]. tel:[phone] Referring Provider: Korina FAJARDO, [address] [place] [address], [facility]. tel:[phone] [facility], [address] [place] [address] Dr Stack 1000SuDottie hodge MD, [id number], [place] tel:[phone] CV[place] - [place] Encounter for follow-up examination after completed treatment for conditions other than malignant neChronic venous hypertension (idiopathic) with other complication s of bilateral lower extremity 4 Miguel ALBERTS RVT, MARY Montez. [address] [place] [address], [facility] [place], [id number], [place]. tel:[phone] Referring Provider: Korina FAJARDO, [address] [place] [address], [facility]. tel:[phone] [facility], [address] [place] [address] Dr Stack 1000Suite 1000Dottie [place], [id number], [place] tel:[phone] CVR [facility] Encounter for follow-up examination after completed treatment for conditions other than malignant neoplasmVari cose veins of left lower extremity with pain 4 Elizabeth Beth. [address] [facility], [address], [place], [place], [id number], [place]. tel:[phone] Referring Provider: Korina FAJARDO, [address] [place] [address], [address]. tel:[phone] [facility], [address] [place] [address] Dr Stack 1000[facility] D[place]ie Greer [place], [id number], [place] tel:[phone] CVR [facility] Varicose veins of left lower extremity with other complication s 4 Miguel ALBERTS RVT, MARY Montez. [address] [place] [address], [place], [id number], [place]. tel:[phone] Referring Provider: Korina FAJARDO, [address] [place] [address], [address]. tel:[phone] [place] [facility], [address] [place] [address] Dr Stack 1000[facility] Dottie Greer [place], [id number], [place] tel:[phone] [facility] No Information 4 Miguel ALBERTS RVT, MARY Montez. [address] [place] [address], [place], [id number], [place]. tel:[phone] [facility], [address] [place] [address] Dr Stack 1000Suite Dottie Greer [place], [id number], [place] tel:[phone] CVR - [facility] Encounter for follow-up examination after completed treatment for conditions other than malignant neoplasmChro savi venous hypertension (idiopathic) with other complication s of right lower extremity 4 Miguel ALBERTS RVT, MARY Montez. [address] [place] [address], [place], [id number], [place]. tel:[phone] Referring Provider: Korina FAJARDO, [address] [place] [address], [facility]. tel:[phone] [facility], [address] [place] [address] Dr Stack 1000SuDottie hodge MD, [id number], [place] tel:[phone] CVR - [facility] Varicose veins of right lower extremity with other complication s 4 Miguel ALBERTS RVT, RPVI Robert. [address] [place] [address], [facility], [place], [id number], [place]. tel:[phone] Referring Provider: Korina FAJARDO, [address] [place] [address], [facility]. tel:[phone] [facility], [address] [place] [address] Dr Stack 1000SuDottie hodge MD, [id number], [place] tel:[phone] CVR - [facility] Encounter for follow-up examination after completed treatment for conditions other than malignant neVaricose veins of right lower extremity with pain 4 Miguel ALBERTS RVT, RPVI Robert. [address] [place] [address], [facility] [place], [place], [id number], [place]. tel:[phone] Referring Provider: Korina FAJARDO, [address] [place] [address], [facility]. tel:[phone] [facility], [address] [place] [address] Dr Stack 1000SuDottie hodge MD, [id number], [place] tel:[phone] CVR - [facility] No Information 4 Miguel ALBERTS RVT, MARY Montez. [address] [place] [address], [facility] [place], [place], [id number], [place]. tel:[phone] [facility], [address] [place] [address] Dr Stack 1000SuDottie hodge MD, [id number], [place] tel:[phone] CVR - [facility] Chronic venous hypertension (idiopathic) with inflammation of right lower extremity 4 Miguel ALBERTS RVT, MARY Montez. [address] [place] [address], [place], [place], [id number], . tel:[phone] Referring Provider: Korina FAJARDO, [address] [place] [address], [facility]. tel:[phone] Offic/outpt E&m Estab 5 Min Trial- Telemedicine CT & [place] [facility] MD [place], [address] [place] [address] Dr Stack 1000Suite Dottie Greer MD, [id number], [place] tel:[phone] CV[place] - [place] Localized edemaCramp and spasmRestles s legs syndromeVeno us insufficienc y (chronic) (peripheral) Pruritus, unspecified Apr- 4 Dayo Camarillo. [address] [place] [address], [place], [place], [id number], [place]. tel:[phone] Referring Provider: Korina FAJARDO, [address] [place] [address], [address]. tel:[phone] Office/Oupt E&M New Pt 45 Mins [facility], [address] [place] [address] Dr Stack 1000Suite Dottie Greer MD, [id number], [place] tel:[phone] CV[place] - [place] Varicose veins of bilateral lower extremities with other complication Jarrod in right lower legPain in left lower legPain in right legRestless legs syndromePrur itus, unspecifiedP ain in left legCramp and spasmLocaliz ed edema Dec- 4 Miguel ALBERTS, RVT, MARY Montez. [address] [place] [address], [place], [place], [id number], [place]. tel:[phone] Referring Provider: LIS PHILLIPS MD MPH R, [address], [place], [address]. tel:[phone] [facility], [address] [place] [address] Dr Stack 1000SuDottie hodge [place], [id number], [place] tel:[phone] CVR - [place] Chronic venous hypertension (idiopathic) with other complication s of bilateral lower extremity Miguel ALBERTS, RVT, MARY Montez. [address], [address], [place], [id number], [place]. tel:[phone] Referring Provider: Korina Puente [facility], [address] [place], [address]. tel:[phone] Family History Family Member Type Diagnosis Age At Onset No Information Payers Payer name Insurance type Covered republican ID Anny ramirez(s) [facility] [id number] Social History Type Description Quantity Date Captured [...]
--- OUTSIDE RECORDS SUMMARY | 2024-12-16 09:00 | XMS_ITS ---
Author Organization [facility] Address [address] [place] [address] Care Team Providers Care Leather Staker Name Role Phone Wil ALBERTS, Annaele Justice Primary Care Provider Un available Kevin Crowder Unavailable [phone] Isabelle Schmid [phone] REASON FOR VISIT sooner appt Encounters Encounter Location Date Provider Diagnosis [address] [address] 12/16/2024 Isabelle Schmid Plan Of Treatment Next Appt Details Provider Name:Kevin Crowder , 06/17/2025 01:30:00 PM, [address] [place] [address], [phone], Provider Name:Kevin Crowder , 08/12/2025 11:00:00 AM, [address] [place] [address], [address], Provider Name:Kevin Crowder , 08/26/2025 12:00:00 PM, [address] [place] [address], [address], Progress Notes * RENELUIS LoanB:1955 (69 yo F)Acc No.[id number]:12/16/2024 Progress Notes Patient: Davida SOL Provider: Piper Schmid DPM :1955 A ge:69 Y S ex:Female Date:12/16/2024 Address:[address] [place] [address] [id number] Pcp:Zachery Giordano Subjective: * Chief Complaints: * [...] DPM Date: 0 12/16/2024 Generated for Елена linda/Kallie/Premasmitting on: 0 06/08/2025 12:07 PM EDT
[2025-06-08 11:21] LABS: Prothrombin Time Whole Bld POC 36.7 sec (11.1-13.5); ~PT, ~INR - Anti Coag Clinic 3.1 (0.9-1.1)
--- NOTE | 2025-06-08 11:31 | MHC.OFFVISCO ---
Intake Intake Visit Reasons: Anticoagulation Allergies Sulfa (Sulfonamide Antibiotics) (SULFA(SULFONAMIDE ANTIBIOTICS)) Allergy (Unknown, Verified 06/08/25 11:16) RASH codeine Adverse Reaction (Verified 06/08/25 11:16) Vomiting oxycodone Adverse Reaction (Verified 06/08/25 11:16) Gastrointestinal Upset Medication List - Last Reconciled 06/08/25 by Rachael Dunlap RN amiodarone 200 mg PO DAILY ascorbate calcium (vitamin C) 500 mg PO DAILY bumetanide 1 mg (1/2 x 2 mg) PO DAILY calcium carbonate (Tums) PO cholecalciferol (vitamin D3) 10 mcg PO DAILY gabapentin 300 mg PO DAILY multivitamin 1 tab PO DAILY warfarin See Protocol 2.5 mg orally X5 DAYS/ 5MG X 2 DAYS ( and ); Nursing Note NO CP,SOB,DIET/MED CHANGES,FALLS OR SX OF BLEEDING. CONTINUE PRESENT DOSE AND FOLLOW-UP IN 4 WEEKS. GOOD UNDERSTANDING OF DOSING INSTR. Anti-Coag Initial Assessment Social Hx Patient Tobacco Use Status: Never used Tobacco alcohol intake: never Coding Level of Care Code Est Patient Level 1 Diagnoses Current use of anticoagulant therapy Z79.01 Assessment & Plan Assessment & Plan (1) Current use of anticoagulant therapy: Code(s): Z79.01 - intermediate card tender (current) use of anticoagulants Category: Medical
--- OUTSIDE RECORDS SUMMARY | 2025-06-08 12:07 | XMS_ITS | Clinical Summary ---
Author Organization [facility] Facility Address [address] [address] Care Team Providers Care Water Analyst Name Role Phone Dena Gore MD Primary Care Provider [phone] Allergies Active Allergy Reactions Criticality Noted Date [...] require that she be seen at the [facility] but she should definitely be quarantined since onset of her symptoms Friday for 14 days. Patient works at [employer] and would like a note for work [...] prior to testing. Until then, can try zspi-aou-shoocci antihistamine such as generic versions of Margy, [...] PCV20, or PCV21) 04/23/2019 02/26/2019 Influenza Vaccine (#1) 2025 7, 09/13/2014, 08/31/2013, Additional history exists Pneumococcal Vaccine: Peds (0 to 5 Years) and At-Risk Patients (6 to 49 Years) Discontinued 02/26/2019 Hepatitis B Vaccine Aged Out No longe r eligible based on patient's age to complete this topic Insurance Medicare [facility] Medicare [facility] Care Teams Water Analyst Relationship Specialty Start Date End Date Dena Gore MD [address] [place] [address] PCP - General Internal Medicine 03/13/22
== END 2025-06-08 11:36 | disposition home or self-care (01) ==
LOC: HO.ACS 11:15
PROVIDERS: PCP Internal Medicine; Visit Provider Internal Medicine Medical Oncology
DX: Z79.01 Long term (current) use of anticoagulants (principal)

== ENCOUNTER → 2025-06-08 11:15 | Outpatient (BNVA) | payer MEDICARE, SELFPAY | PROVIDERS: PCP Internal Medicine; Visit Provider Internal Medicine Medical Oncology | DX: I48.0 Paroxysmal atrial fibrillation (principal); Z79.01 Long term (current) use of anticoagulants; Z51.81 Encounter for therapeutic drug level monitoring | CPT/HCPCS: 85610; 99211 ==

== ENCOUNTER 2025-06-16 14:47 | Outpatient (AMB) | payer MEDICARE, SELFPAY ==
--- OUTSIDE RECORDS SUMMARY | 2024-07-14 09:41 | XMS_ITS | Continuity of Care Document ---
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 Role Phone Miguel ALBERTS, RVT, RPVI, Tc Unavailable U navailable Allergies, Adverse Reactions, Alerts Substance Reaction Status Criticality Sulfa (Sulfonamide Antibiotics) Active No Information oxycodone Active No Information Medications Medication Instructions Dosage Effective Dates (start - stop) Status Comments warfarin 1 mg tablet - Active Procedures Procedure Date Duplex Scan-extrem Veins; Uni/ CT & MA A Inj Scleros Solut; Mx Veins 1- CT & [place] A Ultrason Guidan Needle Bx-rad- CT & [place] A Varithena, Single Truncal [...] Providers Copied on Encounter [facility], [address] [place] [address] Dr Stack 1000[address] 1000Dottie [place], [id number], [place] tel:[phone] CVR - [place] - [place] No Information 4 Miguel ALBERTS RVT, MARY Montez. [address] [place] [address], [place], [place], [id number], [place]. tel:[phone] [facility], [address] [place] [address] Dr Stack 1000Suite 1000Dottie [place], [id number], [place] tel:[phone] CVR - [facility] Encounter for follow-up examination after completed treatment for conditions other than malignant nePain in left leg 4 Miguel ALBERTS RVT, MARY Montez. [address] [place] [address], [place], [place], [id number], [place]. tel:[phone] Referring Provider: Korina JIANGP, [address] [place] [address], [address]. tel:[phone] [facility], [address] [place] [address] Dr Stack 1000Suite 1000Dottie [place], [id number], [place] tel:[phone] CVR [facility] Varicose veins of left lower extremity with other complication s 4 Anjelica Reeder. [address] [place] [address], [facility] [place], [id number], [place]. tel:[phone] Referring Provider: Korina FAJARDO, [address] [place] [address], [address]. tel:[phone] [facility], [address] [place] [address] Dr Stack 1000Suite 1000Dottie [place], [id number], [place] tel:[phone] CVR - [place] Varicose veins of left lower extremity with other complication s 4 Miguel ALBERTS RVT, MARY Montez. [address] [place] [address], [place], [place], [id number], [place]. tel:[phone] Referring Provider: Korina FAJARDO, [address] [place] [address], [facility]. tel:[phone] Office/Outpt E&M Established 15 Mins- CT & [place] [facility], [address] [place] [address] Dr Stack 1000Suite [place], [id number], [place] tel:[phone] [place] - [place] Pruritus, unspecifiedV aricose veins of left lower extremity with other complication sLocalized edemaCramp and spasmRestles s legs syndrome 4 Miguel ALBERTS RVT, MARY Montez. [address] [place] [address], [facility] [place], [id number], [place]. tel:[phone] Referring Provider: Korina FAJARDO, [address] [place] [address], [facility]. tel:[phone] [facility], [address] [place] [address] Dr Stack 1000SuDottie hdoge MD, [id number], [place] tel:[phone] [place] Encounter for follow-up examination after completed treatment for conditions other than malignant neChronic venous hypertension (idiopathic) with other complication s of bilateral lower extremity 4 Miguel ALBERTS RVT, MARY Montez. [address] [place] [address], [facility] [place] [place], [id number], [place]. tel:[phone] Referring Provider: Korina FAJARDO, [address] [place] [address], [facility]. tel:[phone] [facility], [address] [place] [address] Dr Stack 1000Suite 1000Dottie [place], [id number], [place] tel:[phone] CVR [facility] Encounter for follow-up examination after completed treatment for conditions other than malignant neoplasmVari cose veins of left lower extremity with pain 4 Elizabeth Beth. [address], [address], [place], [place], [id number], [place]. tel:[phone] Referring Provider: Korina FAJARDO, [address] [place] [address], [address]. tel:[phone] [facility], [address] [place] [address] Dr Stack [facility] [place], [id number], [place] tel:[phone] CVR [facility] Varicose veins of left lower extremity with other complication s 4 Miguel ALBERTS RVT, MARY Montez. [address] [place] [address], [place], [id number], [place]. tel:[phone] Referring Provider: Korina FAJARDO, [address] [place] [address], [address]. tel:[phone] [facility], [address] [place] [address] Dr Stack [facility] [place], [id number], [place] tel:[phone] [facility] No Information 4 Miguel ALBERTS RVT, MARY Montez. [address] [place] [address], [place], [id number], [place]. tel:[phone] [facility], [address] [place] [address] Dr Stack 1000Suite [place]ie [place], [id number], [place] tel:[phone] CVR - [facility] Encounter for follow-up examination after completed treatment for conditions other than malignant neoplasmChro savi venous hypertension (idiopathic) with other complication s of right lower extremity 4 Miguel ALBERTS RVT, MARY Montez. [address] [place] [address], [place], [id number], [place]. tel:[phone] Referring Provider: Korina FAJARDO, [address] [place] [address], [facility]. tel:[phone] [facility], [address] [place] [address] Dr Stack 1000SuDottie hodge MD, [id number], [place] tel:[phone] CVR - [facility] Varicose veins of right lower extremity with other complication s 4 Miguel ALBERTS RVT, RPVI Robert. [address] [place] [address], [facility], [place], [id number], [place]. tel:[phone] Referring Provider: Korina FAJARDO, [address] [place] [address], [facility]. tel:[phone] [facility], [address] [place] [address] Dr Stack 1000SuDottie hodge MD, [id number], [place] tel:[phone] CVR - [facility] Encounter for follow-up examination after completed treatment for conditions other than malignant neVaricose veins of right lower extremity with pain 4 Miguel ALBERTS RVT, RPVI Robert. [address] [place] [address], [facility] [place], [id number], [place]. tel:[phone] Referring Provider: Korina FAJARDO, [address] [place] [address], [facility]. tel:[phone] [facility], [address] [place] [address] Dr Stack 1000SuDottie hodge [place], [id number], [place] tel:[phone] CVR - [facility] No Information 4 Miguel ALBERTS RVT, MARY Montez. [address] [place] [address], [facility] [place], [place], [id number], [place]. tel:[phone] [facility], [address] [place] [address] Dr Stack 1000SuDottie hodge MD, [id number], [place] tel:[phone] CVR - [facility] Chronic venous hypertension (idiopathic) with inflammation of right lower extremity 4 Miguel ALBERTS RVT, MARY Montez. [address] [place] [address], [place], [place], [id number], . tel:[phone] Referring Provider: Korina FAJARDO, [address] [place] [address], [facility]. tel:[phone] Offic/outpt E&m Estab 5 Min Trial- Telemedicine CT & [place] [facility] [place], [address] [place] [address] Dr Stack 1000Suite Dottie [place], [id number], [place] tel:[phone] [place] Localized edemaCramp and spasmRestles s legs syndromeVeno us insufficienc y (chronic) (peripheral) Pruritus, unspecified Apr- 4 Dayo Camarillo. [address] [place] [address], [place], [place], [id number], [place]. tel:[phone] Referring Provider: Korina FAJARDO, [address] [place] [address], [address]. tel:[phone] Office/Oupt E&M New Pt 45 Mins [facility], [address] [place] [address] Dr Stack 1000Suite D[place]ie [place], [id number], [place] tel:[phone] [place] - [place] Varicose veins of bilateral lower extremities with other complication Jarrod in right lower legPain in left lower legPain in right legRestless legs syndromePrur itus, unspecifiedP ain in left legCramp and spasmLocaliz ed edema Dec- 4 Miguel ALBERTS, RVT, MARY Montez. [address] [place] [address], [place], [place], [id number], [place]. tel:[phone] Referring Provider: LIS PHILLIPS MD MPH R, [address], [place], [address]. tel:[phone] [facility], [address] [place] [address] Dr Stack 1000SuDottie hodge [place], [id number], [place] tel:[phone] [place] - [place] Chronic venous hypertension (idiopathic) with other complication s of bilateral lower extremity Miguel ALBERTS, RVT, MARY Montez. [address], [address], [place], [id number], [place]. tel:[phone] Referring Provider: Korina Puente [facility], [address] [place], [address]. tel:[phone] Family History Family Member Type Diagnosis Age At Onset No Information Payers Payer name Insurance type Covered libertarian ID Anny ramirez(s) [facility] [id number] Social History Type Description Quantity Date Captured Comments Alcohol Use Details Unknown Caffeine Use Details Unknown Tobacco Use Status No Information Smoking Status No Information Sex Female Chief Complaint And Reason For Visit No Information Reason For Referral Reason For Referral No Information Plan Of Treatment Date Type Action Status Goal Tobacco cessation counseling completed Goal Diet education completed Goal Tobacco cessation counseling completed Goal Tobacco cessation counseling completed Goal Diet education completed Referral Ordered: Weight management: Referral to [...] Information Instructions Date Instruction Additional Infor mation Patient education booklet given Related to Varicose veins of left lower extremity with other complications Diet education Related to Body mass index (BMI) 40.0-44.9, adult Giving Encouragement to exercise Related to Body mass index (BMI) 40.0-44.9, adult Lifestyle education Related to B veronica mass index (BMI) 40.0-44.9, adult Pre and post instruc tions reviewed and provided Related to Varicose veins of left lower extremity with other complications Patient education booklet given Related to Localized edema Compression stocking usage as conservative measure Related to Localized edema Lifestyle education Related to B veronica mass index (BMI) 40.0-44.9, adult Patient education booklet given Related to Varicose veins of bilateral lower extremities with other complications Compression stocking usage as conservative measure Related to Varicose veins of bilateral lower extremities with other complications Diet education Related to Body mass index (BMI) 40.0-44.9, adult Giving Encouragement to exercise Related to Body mass index (BMI) 40.0-44.9, adult Assessments Type Assessment Date No Information Patient Care Teams Name Effective Dates (start - stop) Status Members No Information
--- OUTSIDE RECORDS SUMMARY | 2024-12-16 09:00 | XMS_ITS ---
Author Organization [facility] Address [address] [place] [address] Care Team Providers Care Satellite Technician Name Role Phone Wil ALBERTS, Annalee Justice Primary Care Provider Un available Kevin Crowder Unavailable [phone] Isabelle Schmid [phone] REASON FOR VISIT sooner appt Encounters Encounter Location Date Provider Diagnosis [address] [address] 12/16/2024 Isabelle Schmid Plan Of Treatment Next Appt Details Provider Name:Kevin Crowder , 06/17/2025 01:30:00 PM, [address] [place] [address], [phone], Provider Name:Kevin Crowder , 08/12/2025 11:00:00 AM, [address] [place] [address], [phone], Provider Name:Kevin Crowder , 08/26/2025 12:00:00 PM, [address] [place] [address], [phone], Progress Notes * RENELUIS LoanB:1955 (69 yo F)Acc No.[id number]:12/16/2024 Progress Notes Patient: Davida SOL Provider: Piper Schmid DPM :1955 A ge:69 Y S ex:Female Date:12/16/2024 Address:[address] [place] [address] [id number] Pcp:Zachery Giordano Subjective: * Chief Complaints: * [...] 12/16/2024 Generated for Елена linda/Kallie/Premasmitting on: 0 06/16/2025 02:54 PM EDT
[2025-06-16 14:51] VITALS: BP 160/80; PULSE 67; TEMP 36.6; O2SAT 96; BMI 41.6
--- NOTE | 2025-06-16 14:51 | AM.OFFWIN_ITS ---
Intake Vital Signs 06/16/25 14:51 Height 5 ft 4.25 in Weight 244 lb 8 oz BMI 41.6 BP 160/80 H Blood Pressure Location Rt brachial Position Sitting Pulse 67 Pulse Source Pulse Oximeter Temp 97.9 F Temp Source Oral Pulse Oximetry (%) 96 Oxygen Delivery Method Room Air Intake Visit Reasons: EP pain on RT rib Patient Tobacco Use Status: Never used Tobacco Clinical Trials Nurse Required: No Is last menstrual period known: No Post menopausal: No Patient : No Allergies Sulfa (Sulfonamide Antibiotics) (SULFA(SULFONAMIDE ANTIBIOTICS)) Allergy (Unknown, Verified 06/16/25 15:04) RASH codeine Adverse Reaction (Verified 06/16/25 15:04) Vomiting oxycodone Adverse Reaction (Verified 06/16/25 15:04) Gastrointestinal Upset Do you need a note to return to daycare/school/sports/work: No HPI HPI Comments History of Present Illness Details History of Present Illness - The patient is a 69-year-old female pr esenting with rib injury due to fall. - The patient fell on her ribs while maria antonia aurora over a recycle can to retrieve bottles, resulting in her ribs getting stuck on the top of the barrel. - The incident occurred on Friday, and s he has been experiencing pain since then. - She reports that it feels as though so mething went between her ribs, causing localized pain on the right side. - There is no visible bruising, but she notes swelling in the affected area. - She experiences some difficulty with b reathing, particularly at night, although she denies pain with breathing. - She denies CP, abd pain, back pain, ar m pain, or ALLEN. Physical Exam General: Cooperative, healthy appearing, comfortable, no acute distress and well developed Respiratory: Normal respiratory effort and able to speak in complete sentences. Clear to auscultation bilaterally, no w/r/r noted. Cardiovascular: Regular rate and rhythm. Normal S1 and S2. No m/r/g noted. TTP of the right anterior chest wall under the breast. No crepitus noted. Skin: No rashes or lesions noted. No bruises noted. No abrasion noted. Neuro: Patient oriented x3. Sensation is intact. Extremities: Normal to inspection. FROM of the arms bilaterally. Patient was informed and verbally consented to the use of an ambient scribe for clinic note documentation during this visit. [facility] Medical History (Updated 02/16/25 @ 12:00 by Opal Tijerina PA-C) Family history of breast cancer in first degree relative Rib pain on left side History of kidney stones Dyslipidemia Osteoporosis Impaired fasting glucose Vaccine refused by patient Elevated brain natriuretic peptide (BNP) level Anemia Morbid obesity Iliotibial band syndrome Lumbosacral radiculopathy due to osteoarthritis of spine History of deep vein thrombophlebitis of lower extremity Positive ALVIN (antinuclear antibody) CKD (chronic kidney disease) stage 3, GFR 30-59 ml/min Osteoarthritis of right ankle and foot Postmenopausal Venous insufficiency of both lower extremities Diverticulitis Peripheral vascular complication of surgical procedure Peripheral vascular disease Hyperlipidemia DVT (deep venous thrombosis) Diastolic heart failure Paroxysmal A-fib BERE (obstructive sleep apnea) Surgical History History of lithotripsy History of cardiac cath Hx of vascular surgery H/O hysterectomy for benign disease Family History Father Emphysema, unspecified Mother No problems noted. Brother Atrial fibrillation Sister Atrial fibrillation Sister Breast cancer Social History Household Members: None Housing: House Do you presently have visiting nurse or other home services: No Alcohol intake: never Patient Tobacco Use Status: Never used Tobacco e-Cigarette/Vaping Use: Never Used Patient : No service: No Current occupational status: retired and disabled Current occupation: rt handed Cognitive needs: No Hearing needs: No Vision needs: Yes Review of Systems Const All systems reviewed & are unremarkable except as noted in HPI and below Physical Exam Vital Signs: Last Vital Signs Temp 97.9 F 06/16/25 14:51 Pulse 67 06/16/25 14:51 BP 160/80 H 06/16/25 14:51 Pulse Ox 96 06/16/25 14:51 Oxygen Delivery Method Room Air 06/16/25 14:51 BMI result Body Mass Index 41.6 Results Reviewed Results Reviewed: Reviewed her x-ray in the office today Assessment & Plan Assessment & Plan (1) Rib pain on right side: Code(s): R07.81 - Pleurodynia Plan Most likely contusion vs fracture vs costochondritis Plan - Obtain a chest X-ray to assess for any rib fractures or other injuries. - Incentive spirometry 2-3 times an hour - Naproxen as needed - continue with gabapentin - activities as tolerated - follow up with PCP Orders: Orders XR ribs RT min 3V w CXR1V Today R07.81 - Pleurodynia Coding Level of Care Code Est Pt Level 4 (61129) Diagnoses Rib pain on right side R07.81
--- OUTSIDE RECORDS SUMMARY | 2025-06-16 14:54 | XMS_ITS | Clinical Summary ---
Author Organization [facility] Facility Address [address] [address] Care Team Providers Care Mortgage Sales Manager Name Role Phone Dena Gore MD Primary Care Provider [phone] Allergies Active Allergy Reactions Criticality Noted Date [...] she be seen at the [facility] but she should definitely be quarantined since onset of her symptoms Friday for 14 days. Patient works at [employer] and would like a note for work [...] disease of the hips bilaterally, referral to [facility] orthopedics for consultation question management. The [...] prior to testing. Until then, can try [id number] antihistamine such as generic versions of Margy, [...] age to complete this topic Insurance Medicare [facility] Medicare [facility] Care Teams Mortgage Sales Manager Relationship Specialty Start Date End Date Dena Gore MD [address] [place] [address] PCP - General Internal Medicine 03/13/22
== END 2025-06-16 16:27 | disposition home or self-care (01) ==
PROVIDERS: PCP Internal Medicine; Visit Provider Physician Assistant Medical
DX: R07.81 Pleurodynia (principal)

== ENCOUNTER 2025-06-16 14:47 | Outpatient (REF) | payer MEDICARE, SELFPAY ==
--- NOTE | ~2025-06-16 | XR_ITS ---
EXAMINATION: XR RIBS, RIGHT CLINICAL INFORMATION: R07.81 - Pleurodynia COMPARISON: 02/02/2025. TECHNIQUE: PA chest, and 3 views of the right ribs were obtained. FINDINGS: There is mild cardiac enlargement. Mediastinal and hilar contours appear normal. The lungs are clear bilaterally. There is no pneumothorax or effusion. Dedicated right rib views demonstrate no fracture or focal rib abnormality. No soft tissue abnormalities. There are spinal degenerative changes. XR/XR ribs RT min 3V w CXR1V IMPRESSION: 1. Mild cardiac enlargement. The lungs are clear. No pneumothorax. 2. No acute abnormality of the right ribs. Electronically signed by: Marquise Treviño MD 06/16/2025 03:52 PM EDT
== END 2025-06-16 14:48 | disposition home or self-care (01) ==
LOC: HO.HMGCX 14:47
PROVIDERS: PCP Internal Medicine; Visit Provider Physician Assistant Medical
DX: R07.81 Pleurodynia (principal)
CPT/HCPCS: 71101; 99212

== ENCOUNTER → 2025-06-16 15:34 | Outpatient (BNV) | payer MEDICARE, SELFPAY | PROVIDERS: PCP Internal Medicine; Visit Provider Radiology Diagnostic Radiology | DX: R07.81 Pleurodynia (principal) | CPT/HCPCS: 71101 ==

== ENCOUNTER 2025-06-18 17:53 | Emergency (ER) | payer MEDICARE, SELFPAY ==
--- OUTSIDE RECORDS SUMMARY | 2024-07-14 09:41 | XMS_ITS | Continuity of Care Document ---
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 [address] [place] [address], [place], [id number], [place]. tel:[phone] [facility] [place], [address] [place] [address] Dr Stack 1000Suite 1000D[place]ie [place], [id number], [place] tel:[phone] [place] Varicose veins of left lower extremity with other complication s 4 Anjelica Reeder. [address] [place] [address], [facility] [place] [place], [id number], [place]. tel:[phone] Referring Provider: Korina FAJARDO, [address] [place] [address], [address]. tel:[phone] [facility], [address] [place] [address] Dr Stack [address] 1000, [place], [id number], [place] tel:[phone] [place] Encounter for follow-up examination after completed treatment for conditions other than malignant nePain in left leg 4 Miguel ALBERTS RVT, MARY Montez. [address] [place] [address], [place], [id number], [place]. tel:[phone] Referring Provider: Korina FAJARDO, [place], [address]. tel:[phone] [facility], [address] [place] [address] Dr Stack 1000Suite 1000D[place]ie [place], [id number], [place] tel:[phone] [place] Varicose veins of left lower extremity with other complication s 4 Miguel ALBERTS RVT, MARY Montez. [address] [place] [address], [place], [place], [id number], [place]. tel:[phone] Referring Provider: Korina FAJARDO, [address] [place] [address], [facility]. tel:[phone] Office/Outpt E&M Established 15 Mins- CT & [place] [facility], [address] [place] [address] Dr Stack 1000Suite Dottie Greer [place], [id number], [place] tel:[phone] [place] Pruritus, unspecifiedV aricose veins of left lower extremity with other complication sLocalized edemaCramp and spasmRestles s legs syndrome 4 Miguel ALBERTS RVT, MARY Montez. [address] [place] [address], [facility] [place], [id number], [place]. tel:[phone] Referring Provider: Korina FAJARDO, [address] [place] [address], [facility]. tel:[phone] [facility], [address] [place] [address] Dr Stack 1000SuDottie hodge [place], [id number], [place] tel:[phone] [place] Encounter for follow-up examination after completed treatment for conditions other than malignant neChronic venous hypertension (idiopathic) with other complication s of bilateral lower extremity 4 Miguel ALBERTS RVT, MARY Montez. [address] [place] [address], [facility] [place], [place], [id number], [place]. tel:[phone] Referring Provider: Korina FAJARDO, [address] [place] [address], [facility]. tel:[phone] [facility], [address] [place] [address] Dr Stack 1000Suite 1000D[place]ie [place], [id number], [place] tel:[phone] CVR [facility] Encounter for follow-up examination after completed treatment for conditions other than malignant neoplasmVari cose veins of left lower extremity with pain 4 Elizabeth Beth. [address], [address], [place], [place], [id number], [place]. tel:[phone] Referring Provider: Korina FAJARDO, [address] [place] [address], [address]. tel:[phone] [facility], [address] [place] [address] Dr Stack 1000Sueast [facility] D[place] Greer [place], [id number], [place] tel:[phone] CVR [facility] Varicose veins of left lower extremity with other complication s 4 Miguel ALBERTS RVT, MARY Montez. [address] [place] [address], [place], [id number], [place]. tel:[phone] Referring Provider: Korina FAJARDO, [address] [place] [address], [address]. tel:[phone] [facility], [address] [place] [address] Dr Stack 1000Sueast [facility] D[place]ie Greer [place], [id number], [place] tel:[phone] [facility] No Information 4 Miguel ALBERTS RVT, MARY Montez. [address] [place] [address], [place], [id number], [place]. tel:[phone] [facility], [address] [place] [address] Dr Stack 1000Suite Dottie Greer [place], [id number], [place] tel:[phone] CVR - [facility] Encounter for follow-up examination after completed treatment for conditions other than malignant neoplasmChro savi venous hypertension (idiopathic) with other complication s of right lower extremity 4 Miguel ALBERTS RVT, MARY Montez. [address] [place] [address], [place], [id number], [place]. tel:[phone] Referring Provider: Korina FAJARDO, [address] [place] [address], [facility]. tel:[phone] [facility], [address] [place] [address] Dr Stack 1000SuDottie hodge MD, [id number], [place] tel:[phone] CVR - [facility] Varicose veins of right lower extremity with other complication s 4 Miguel ALBERTS RVT, RPVI Robert. [address] [place] [address], [facility], [place], [id number], [place]. tel:[phone] Referring Provider: Korina FAJARDO, [address] [place] [address], [facility]. tel:[phone] [facility], [address] [place] [address] Dr Stack 1000SuDottie hodge MD, [id number], [place] tel:[phone] CVR - [facility] Encounter for follow-up examination after completed treatment for conditions other than malignant neVaricose veins of right lower extremity with pain 4 Miguel ALBERTS RVT, RPVI Robert. [address] [place] [address], [facility] [place], [place], [id number], [place]. tel:[phone] Referring Provider: Korina FAJARDO, [address] [place] [address], [facility]. tel:[phone] [facility], [address] [place] [address] Dr Stack 1000SuDottie hodge [place], [id number], [place] tel:[phone] CVR - [facility] No Information 4 Miguel ALBERTS RVT, MARY Montez. [address] [place] [address], [facility] [place], [place], [id number], [place]. tel:[phone] [facility], [address] [place] [address] Dr Stack 1000SuDottie hodge MD, [id number], [place] tel:[phone] CVR - [facility] Chronic venous hypertension (idiopathic) with inflammation of right lower extremity 4 Miguel ALBERTS RVT, MARY Montez. [address] [place] [address], [place], [place], [id number], . tel:[phone] Referring Provider: Korina FAJARDO, [address] [place] [address], [facility]. tel:[phone] Offic/outpt E&m Estab 5 Min Trial- Telemedicine CT & [place] [facility] [place], [address] [place] [address] Dr Stack 1000Suite Dottie Greer [place], [id number], [place] tel:[phone] [place] Localized edemaCramp and spasmRestles s legs syndromeVeno us insufficienc y (chronic) (peripheral) Pruritus, unspecified Apr- 4 Dayo Camarillo. [address] [place] [address], [place], [place], [id number], [place]. tel:[phone] Referring Provider: Korina FAJARDO, [address] [place] [address], [address]. tel:[phone] Office/Oupt E&M New Pt 45 Mins [facility], [address] [place] [address] Dr Stack 1000Suite Dottie Greer [place], [id number], [place] tel:[phone] [place] Varicose veins of bilateral lower extremities with other complication Jarrod in right lower legPain in left lower legPain in right legRestless legs syndromePrur itus, unspecifiedP ain in left legCramp and spasmLocaliz ed edema Dec- 4 Miguel ALBERTS, RVT, MARY Montez. [address] [place] [address], [place], [place], [id number], [place]. tel:[phone] Referring Provider: LIS PHILLIPS MD MPH R, [address], [place], [address]. tel:[phone] [facility], [address] [place] [address] Dr Stack 1000SuDottie hodge MD, [id number], [place] tel:[phone] [place] Chronic venous hypertension (idiopathic) with other complication s of bilateral lower extremity Miguel ALBERTS, RVT, MARY Montez. [address], [address], [place], [id number], [place]. tel:[phone] Referring Provider: Korina Puente [facility], [address] [place], [address]. tel:[phone] Family History Family Member Type Diagnosis Age At Onset No Information Payers Payer name Insurance type Covered democrat ID Anny ramirez(s) [facility] [id number] Social History Type Description Quantity Date Captured [...]
--- OUTSIDE RECORDS SUMMARY | 2025-06-17 09:30 | XMS_ITS ---
Author Organization [facility] Address [address] [place] [address] Care Team Providers Care Demurrage Clerk Name Role Phone Wil ALBERTS, Annalee Justice Primary Care Provider Un available Kevin Crowder Unavailable [phone] Allergies Allergen (clinical drug ingredient) Drug/Non Drug [...] Date Provider Diagnosis [facility] [address] [place] [address] 06/17/2025 Kevin Crowder Plan Of Treatment Next Appt Details Provider Name:Kevin Crowder , 08/12/2025 11:00:00 AM, [address] [place], [address], Provider Name:Kevin Jeff Lakesha , 08/26/2025 12:00:00 PM, [address] [facility], [place], [address], Progress Notes * Loan DOWNEYB:1955 (69 yo F)Acc No.[id number]:06/17/2025 Progress Note Patient: Davida SOL Provider: Rebecca Crowder DPM :1955 A ge:69 Y S ex:Female Date:06/17/2025 Address:[address] [place], [place] [id number] Pcp:Zachery Giordano Subjective: * Chief Complaints: * [...] Date: 06/17/2025 Generated for Елена linda/Kallie/Kaushalitting on: 06/18/2025 06:23 PM EDT
--- NOTE | ~2025-06-18 | CT_ITS ---
CLINICAL HISTORY: Fall, right-sided rib pain, R O --- Additional Notes or Special Instructions: Fracture, pneumothorax CT chest without contrast Comparison: CT/SR - CT ANGIO CHEST PE PROTOCOL - 12/15/24 17:47 EST Findings: The heart is normal size. The visualized thyroid and mediastinum are unremarkable. Atelectasis. No significant pleural effusion or pneumothorax. Possible tiny pulmonary nodules not well visualized. Attention on follow-up. Central mesenteric fat stranding with prominent lymph nodes, suggestive of mesenteric panniculitis. Parenchymal defect in the left kidney. Nonobstructive 2 mm calculus right lower pole kidney. Exaggeration of the thoracic kyphosis. Chronic appearing multilevel vertebral body height loss throughout the thoracic spine. Osteopenia with diffuse multilevel spondylosis. No acute fractures. IMPRESSION: 1. Atelectasis. 2. Possible mesenteric panniculitis. 3. Additional findings as described. This document has been electronically signed by: London Case MD on 06/18/2025 20:18:08
[2025-06-18 17:58] VITALS: BP 190/90; PULSE 60; O2SAT 94
[2025-06-18 18:01] VITALS: BP 162/67; PULSE 56; RESP 16; TEMP 36.7; O2SAT 89; BMI 37.4
--- OUTSIDE RECORDS SUMMARY | 2025-06-18 18:24 | XMS_ITS | Clinical Summary ---
Author Organization [facility] Address [address] [address] Care Team Providers Care Supervisor Landscape Name Role Phone Dena Gore MD Primary Care Provider [phone] Allergies Active Allergy Reactions Criticality Noted Date [...] require that she be seen at the [facility] but she should definitely be quarantined since onset of her symptoms Friday for 14 days. Patient works at [employer] and would like a note for work [...] disease of the hips bilaterally, referral to [facility] orthopedics for consultation question management. The Celebrex [...] prior to testing. Until then, can try [id number] antihistamine such as generic versions of Margy, [...] age to complete this topic Insurance Medicare [facility] Medicare [facility] Care Teams Supervisor Landscape Relationship Specialty Start Date End Date Dena Gore MD [address] [place] [address] PCP - General Internal Medicine 03/13/22
--- NOTE | 2025-06-18 18:44 | ED_ITS ---
HPI - General Adult General Chief complaint: General Medical Stated complaint: R Flank pain Time Seen by Provider: 06/18/25 18:43 Source: patient Mode of arrival: EMS Limitations: no limitations History of Present Illness ED Provider: Dr. Maximiliano Hendrix HPI narrative: 69-year-old female with a past medical history significant for DVT, paroxysmal atrial fibrillation on Coumadin, congestive heart failure with preserved ejection fraction, chronic venous insufficiency of bilateral lower extremities, BERE on CPAP, chronic kidney disease, hyperlipidemia, osteoporosis, morbid obesity who presents emergency department for evaluation of severe right-sided chest pain. The patient states that on 06/12/2025 (6 days prior) she was bending over to take a bottle out of the recycling bin when she lost her balance and fell. She states that her right chest struck the lip of the recycle bin. She states she developed immediate, severe pain in her right chest, pain was worse with breathing and with movement. She was seen at our urgent care clinic on 06/16/2025. She had a chest x-ray with three-view rib series which revealed no acute fracture. Patient was advised to continue taking your gabapentin and to use a spirometer. Patient states that her pain is gotten progressively worse since the fall. She states that the pain is worse with breathing and with movement. She has shortness of breath but no different than her baseline shortness of breath secondary to her CHF. She denied cough, fever, chills, fatigue or weakness. The patient states that today her pain was greater than 10/10 and she was brought to emergency department by ambulance. She was given fentanyl 100 mcg IV with some improvement of her pain. At the time my evaluation she stated that her pain was 8/10. Related Data Home Medications ?Medication ?Instructions ?Recorded ?Confirmed ascorbate calcium (vitamin C) 500 500 mg PO DAILY 03/2404/07/25 mg tablet cholecalciferol (vitamin D3) 10 10 mcg PO DAILY 04/07/25 mcg (400 unit) capsule multivitamin 1 tab PO DAILY 04/06/2103/24 calcium carbonate [Tums] PO 04/07/25 04/07/25 gabapentin 300 mg capsule 300 mg PO DAILY 04/07/25 Previous Rx's ?Medication ?Instructions ?Recorded amiodarone 200 mg tablet 200 mg PO DAILY #90 tabs bumetanide 2 mg tablet 1 mg (1/2 x 2 mg) PO DAILY # 90 tabs 01/20/25 warfarin 5 mg tablet 2.5 mg PO .COMPLEX #90 tabs 01/21/25 Allergies Allergy/AdvReac Type Severity Reaction Status Date / Time Sulfa (Sulfonamide Allergy Unknown RASH Verified 06/18/25 18:03 Antibiotics) (SULFA(SULFONAMIDE ANTIBIOTICS)) codeine AdvReac Vomiting Verified 06/18/25 18:03 oxycodone AdvReac Gastrointestinal Verified 06/18/25 18:03 Upset Review of Systems 2 Review of Systems: Yes all other systems are reviewed and are negative [facility] Past Medical History [facility] Narrative: Social history: She denies tobacco, alcohol and drug use. Medical History (Updated 06/18/25 @ 21:30 by Maximiliano Hendrix MD) Family history of breast cancer in first degree relative Rib pain on left side History of kidney stones Dyslipidemia Osteoporosis Impaired fasting glucose Vaccine refused by patient Elevated brain natriuretic peptide (BNP) level Anemia Morbid obesity Iliotibial band syndrome Lumbosacral radiculopathy due to osteoarthritis of spine History of deep vein thrombophlebitis of lower extremity Positive ALVIN (antinuclear antibody) CKD (chronic kidney disease) stage 3, GFR 30-59 ml/min Osteoarthritis of right ankle and foot Postmenopausal Venous insufficiency of both lower extremities Diverticulitis Peripheral vascular complication of surgical procedure Peripheral vascular disease Hyperlipidemia DVT (deep venous thrombosis) Diastolic heart failure Paroxysmal A-fib BERE (obstructive sleep apnea) Surgical History History of lithotripsy History of cardiac cath Hx of vascular surgery H/O hysterectomy for benign disease Family History Family History Father Emphysema, unspecified Mother No problems noted. Brother Atrial fibrillation Sister Atrial fibrillation Sister Breast cancer Social History Social History Household Members: None Housing: House Do you presently have visiting nurse or other home services: No Alcohol intake: never Patient Tobacco Use Status: Never used Tobacco e-Cigarette/Vaping Use: Never Used service: No Current occupational status: retired and disabled Current occupation: rt handed Cognitive needs: No Hearing needs: No Vision needs: Yes Physical Exam ED Vital Signs: Vital Signs - 24 hr 06/18/25 18:01 06/18/25 20:22 Temperature 98.0 F 98.2 F Pulse Rate 56 53 Respiratory Rate 16 16 Blood Pressure 162/67 H 110/53 L Pulse Oximetry 89 L 92 Oxygen Delivery Method Room Air Nasal Cannula Oxygen Flow Rate 2 BMI result Body Mass Index 37.4 Vital signs revealed an elevated blood pressure of 162/67 and a low heart rate of 56 Exam: General: Awake, alert in moderate distress secondary to her pain Head: Normocephalic, atraumatic EENT: PERRL, Lids normal, sclera normal, conjunctiva normal, nose normal , ears normal, throat without erythema or exudates Neck: Supple, no adenopathy Lung: breath sounds symmetric, no wheezing, rales or rhonchi Chest: symmetric movement, moderate to severe tenderness palpation of the right lateral chest, no ecchymosis or crepitus Heart: regular rate and rhythm, normal S1, S2 no murmurs or rubs Abdomen: soft, non-tender, nondistended, normal bowel sounds Back: no vertebral tenderness, no CVAT Extremities: no deformities, moves all extremities symmetrically Neuro: Awake, alert, oriented, normal speech, cranial nerves intact, moves all extremities symmetrically Psych: Pleasant, cooperative Medications Administered Discontinued Medications Generic Name Dose Route Start Last Admin Trade Name Freq PRN Reason Stop Dose Admin Hydromorphone HCl 1 mg 06/18/25 19:00 06/18/25 19:21 Hydromorphone Hcl 1 Mg/Ml Syringe IVPUSH 06/18/25 19:01 1 mg ONCE STA Administration Protocol Ondansetron HCl 4 mg 06/18/25 19:00 06/18/25 19:20 Ondansetron Hcl 4 Mg/2 Ml Vial IVPUSH 06/18/25 19:01 4 mg ONCE ONE Administration Medical Decision Making Medical Decision Making MDM Narrative: 69-year-old female with a past medical history significant for DVT, paroxysmal atrial fibrillation on Coumadin, congestive heart failure with preserved ejection fraction, chronic venous insufficiency of bilateral lower extremities, BERE on CPAP, chronic kidney disease, hyperlipidemia, osteoporosis, morbid obesity who presents emergency department for evaluation of severe right-sided chest pain. The patient states that on 06/12/2025 (6 days prior) she was bending over to take a bottle out of the recycling bin when she lost her balance and fell. She states that her right chest struck the lip of the recycle bin. She states she developed immediate, severe pain in her right chest, pain was worse with breathing and with movement. She was seen at our urgent care clinic on 06/16/2025. She had a chest x-ray with three-view rib series which revealed no acute fracture. Patient was advised to continue taking your gabapentin and to use a spirometer. Patient states that her pain is gotten progressively worse since the fall. She states that the pain is worse with breathing and with movement. She has shortness of breath but no different than her baseline shortness of breath secondary to her CHF. She denied cough, fever, chills, fatigue or weakness.The patient states that today her pain was greater than 10/10 and she was brought to emergency department by ambulance. She was given [id number] mcg IV with some improvement of her pain. At the time my evaluation she stated that her pain was 8/10. Vital signs revealed a low heart rate and elevated blood pressure otherwise unremarkable. Examination did reveal significant tenderness palpation of the right lateral chest with no ecchymosis or crepitus. Differential diagnosis: ?Includes but is not limited to rib fracture, chest wall contusion, pneumothorax, pneumonia, anemia, electrolyte abnormalities Course: 19:13 I ordered a CBC, CMP, PTT, PT INR, urinalysis, CT scan of the chest without IV contrast, IV insertion, cardiac monitoring, O2 saturation monitoring. Patient's pain was treated with Dilaudid 1 mg IV and Zofran 4 mg IV. 21:07 My independent interpretation patient's laboratory evaluation is as follows: CBC was normal. LFTs were normal. PT and INR were elevated 42.9 and 3.7-the patient is supratherapeutic on her warfarin. The patient takes 5 mg of warfarin on Sundays had told her not to take this dose and did talk to her Coumadin clinic on Friday to discuss further management of her warfarin treatment. Urinalysis was positive for nitrates and leukocyte esterase. Microscopic revealed 11-20 WBCs and 4+ bacteria with 0-2 squamous cells-the patient is asymptomatic with no dysuria or frequency-therefore I will not treat with antibiotics at this time. CT scan of the chest was negative for rib fractures. Patient does have incidental findings including panniculitis, possible pulmonary nodule, 2 mm nonobstructing kidney stone. I did discuss these findings with the patient but I do not think that they are the cause of her pain. Patient did get some pain relief with the 1st dose of Dilaudid but she states that her pain is now returning therefore I ordered a 2nd dose of Dilaudid 1 mg IV. Patient was advised to take Tylenol for pain and for pain not relieved by Tylenol she was prescribed Dilaudid 4 mg every 6 hours as needed. She was given printed and verbal instructions and discharged home. Admission/Observation Consideration of admission/observation: Escalation of care including admission/observation considered (Yes) Lab Data MDM Lab Attestation statement: I reviewed the patient's lab results. 06/18/25 19:20 06/18/25 19:49 Labs: Lab Results 06/18/25 06/18/25 Range/Units 19:20 19:49 WBC 8.3 (4.8-10.8) X10*3/uL RBC 4.59 (4.20-5.50) X10*6/uL Hgb 14.2 (12.0-16.0) g/dl Hct 42.1 (37.0-47.0) % MCV 91.7 (80.0-98.0) fL MCH 30.9 (27.0-33.0) pg MCHC 33.7 (31.0-35.0) g/dl RDW 14.3 (11.0-16.0) % Plt Count 208 (160-400) X10*3/uL MPV 10.4 (9.4-12.3) fL Immature Gran % (Auto) 0.4 (0.0-0.4) % Neut % (Auto) 63.0 (45-73) % Lymph % (Auto) 24.8 (20-40) % Rush % (Auto) 8.6 (2-11) % Eos % (Auto) 2.6 (0-4) % Baso % (Auto) 0.6 (0-2) % Lymph # (Auto) 2.1 (1.2-4.9) X10*3/uL Rush # (Auto) 0.7 (0.1-1.2) X10*3/uL Eos # (Auto) 0.2 (0.0-0.4) X10*3/uL Baso # (Auto) 0.1 (0.0-0.2) X10*3/uL Abs Immat Gran (auto) 0.03 (0.00-0.03) X10*3/uL Absolute Neuts (auto) 5.2 (2.0-8.3) x10*3/uL Absolute Nucleated RBC 0.000 (0.0-0.012) X10*3/uL Nucleated RBC % (auto) 0.0 (0.0-0.2) /100WBC PT 42.9 H D (10.9-12.4) SEC INR 3.7 H (0.9-1.1) APTT 45.4 H (26.0-36.8) SEC Sodium 141 (135-145) mmol/L Potassium 3.8 (3.3-5.1) mmol/L Chloride 105 (96-108) mmol/L Carbon Dioxide 29 (22-29) mmol/L Anion Gap 11 L (12-20) BUN 18 H (9-16) mg/dL Creatinine 1.02 (0.5-1.4) mg/dL Estim Creat Clear Calc 62.5 Estimated GFR 54 Random Glucose 136 H (60-115) mg/dL Calcium 8.6 D (8.4-10.2) mg/dL Total Bilirubin 0.5 (0.0-1.0) mg/dL AST 19 (5-31) U/L ALT 12 (0-31) U/L Alkaline Phosphatase 116 (39-117) U/L Total Protein 6.4 L (6.5-8.0) g/dL Albumin 3.7 (3.5-5.0) g/dL Urine Color Yellow Urine Appearance Clear Urine pH 8.0 (5.0-9.0) Ur Specific [place] 1.010 (1.005-1.025) Urine Protein Negative (Neg-Trace) mg/dL Urine Glucose (UA) Negative (Negative) mg/dL Urine Ketones Negative (Negative) mg/dL Urine Blood Negative (Negative) Urine Nitrite Positive H (Negative) Ur Leukocyte Esterase Moderate (2+) H (Negative) Urine RBC 0-2 (0-2) /HPF Urine WBC 11-20 H (0-5) /HPF Ur Squamous Epith Cells 0-2 (0-2) /HPF Urine Bacteria 4+ (None Seen) Hyaline Casts 0-2 (0-2) /LPF Radiology Impression Discussion of test interpretation with radiology: I have reviewed the radiologist's reading. Radiologist Impression: CT chest without contrast Comparison: CT/SR - CT ANGIO CHEST PE PROTOCOL - 12/15/24 17:47 EST Findings: The heart is normal size. The visualized thyroid and mediastinum are unremarkable. Atelectasis. No significant pleural effusion or pneumothorax. Possible tiny pulmonary nodules not well visualized. Attention on follow-up. Central mesenteric fat stranding with prominent lymph nodes, suggestive of mesenteric panniculitis. Parenchymal defect in the left kidney. Nonobstructive 2 mm calculus right lower pole kidney. Exaggeration of the thoracic kyphosis. Chronic appearing multilevel vertebral body height loss throughout the thoracic spine. Osteopenia with diffuse multilevel spondylosis. No acute fractures. IMPRESSION: 1. Atelectasis. 2. Possible mesenteric panniculitis. 3. Additional findings as described. This document has been electronically signed by: London Case MD on 06/18/2025 20:18:08 Critical Care Time Critical Care Time Critical Care Time: Yes Total Critical Care Time: 35 Attestation: Critical Care: The patient was critically ill with a high probability of imminent or life threatening deterioration. I spent greater than 30 minutes of discontinuous time evaluating the patient,delivering critical care at the bedside, discussing and evaluating pertinent data with consultants. Critical care time does not include time spent performing separately billable procedures or teaching. Total time spent performing critical care was 35 minutes. Discharge Plan Discharge Clinical Impression: Contusion of right back wall of thorax, Panniculitis, Kidney stone, Pulmonary nodule, Supratherapeutic INR Patient Disposition: Home, Self-Care Instructions: Pulmonary Nodules (ED), Chest Contusion (ED) Additional Instructions: The CT scan of your chest did not reveal any rib fractures which is reassuring. You most likely sustained a contusion/bruise to the muscles and ribs on the right side of your chest. It can sometimes take 2-4 weeks before the contusion heels. Sometimes a pulmonary nodule can be a sign of early cancer or may be inflammation caused by an infection. Your urine test did reveal white blood cells and bacteria however you do not have any symptoms for urinary tract infection therefore I am not going to treat you with antibiotics at this time. If you grow a significant amount of bacteria in your urine, the emergency department will contact you and discuss whether or not you need an antibiotic. Your INR was elevated at 3.7. Do not take your Coumadin/warfarin tomorrow. Call your Coumadin clinic on 06/20/2025 to discuss what your next dose of Coumadin/warfarin should be. Take Tylenol (acetaminophen) 2 pills every 6 hours as needed for pain. For pain not relieved by ibuprofen or Tylenol take Dilaudid 4 mg pills, 1 pill every 6 hours as needed for pain. This medication will make you sleepy, do not drive or work while taking this medication. Dilaudid is a narcotic medication and can be addicting. If you are concerned about addiction you can ask the pharmacist for less pills or do not get this prescription filled. Follow-up with your doctor in 2 days. Please return to the emergency department if your symptoms get worse or if you develop any symptoms that are concerning to you. The CT scan did reveal several incidental findings that I do not think are related to your pain. 1. You have panniculitis which is inflammation of the fat around your intestines. This can sometimes give you pain but I do not think it is related to your right-sided chest pain 2. You have a 2 mm right kidney stone. Kidney stones do not give you pain unless they leave the kidney and get into the tube that connects the bladder (the ureter). 3. The radiologist thinks that you may have a small pulmonary nodule, I do not think this is significant in his not related to your pain but you will need to discuss follow-up of this nodule with a your doctor. Prescriptions: No Action amiodarone 200 mg tablet 200 mg PO DAILY Qty: 90 3RF bumetanide 2 mg tablet 1 mg PO DAILY Qty: 90 3RF warfarin 5 mg tablet 2.5 mg PO .COMPLEX Qty: 90 1RF Protocol: Dose Management Condition: Friday (Week One) Dose/Route: 5 mg Instruction: 1 x 5 mg tablet Condition: Friday Dose/Route: 2.5 mg Instruction: 0.5 x 5 mg tablets Condition: Friday Dose/Route: 2.5 mg Instruction: 0.5 x 5 mg tablets Condition: Friday Dose/Route: 2.5 mg Instruction: 0.5 x 5 mg tablets Condition: Dose/Route: 5 mg Instruction: 1 x 5 mg tablet Condition: Friday Dose/Route: 2.5 mg Instruction: 0.5 x 5 mg tablets Condition: Friday Dose/Route: 2.5 mg Instruction: 0.5 x 5 mg tablets Condition: Friday (Week Two) Dose/Route: 5 mg Instruction: 1 x 5 mg tablet Condition: Friday Dose/Route: 2.5 mg Instruction: 0.5 x 5 mg tablets Condition: Friday Dose/Route: 2.5 mg Instruction: 0.5 x 5 mg tablets Condition: Friday Dose/Route: 2.5 mg Instruction: 0.5 x 5 mg tablets Condition: Dose/Route: 5 mg Instruction: 1 x 5 mg tablet Condition: Friday Dose/Route: 2.5 mg Instruction: 0.5 x 5 mg tablets Condition: Friday Dose/Route: 2.5 mg Instruction: 0.5 x 5 mg tablets Protocol Text: Adjustment Start Date: Friday06/08/25 INR Value: 3.1 INR Date: 06/08/25 Recheck Date: 07/06/25 Rx Instructions: 2.5 mg orally X5 DAYS/ 5MG X 2 DAYS ( and ); multivitamin Tablet 1 tab PO DAILY ascorbate calcium (vitamin C) 500 mg tablet 500 mg PO DAILY cholecalciferol (vitamin D3) 10 mcg (400 unit) capsule 10 mcg PO DAILY gabapentin 300 mg capsule 300 mg PO DAILY calcium carbonate [Tums] PO Patient Comments: Patient states taking 1 chewable tablet per day Print Language: Venezuelan
[2025-06-18 19:30] LABS: MANUAL DIFF FLAG NO
[2025-06-18 19:31] LABS: Hematocrit 42.1 % (37.0-47.0); Hemoglobin 14.2 g/dl (12.0-16.0); Imm Gran Abs Auto 0.03 X10*3/uL (0.00-0.03); Imm Gran Pct Auto 0.4 % (0.0-0.4); Lymphocytes Absolute Auto 2.1 X10*3/uL (1.2-4.9); Mean Corpuscular HGB Conc 33.7 g/dl (31.0-35.0); Mean Corpuscular Hemoglobin 30.9 pg (27.0-33.0); Mean Corpuscular Volume 91.7 fL (80.0-98.0); NRBC Abs Auto 0.000 X10*3/uL (0.0-0.012); NRBC Pct Auto 0.0 /100WBC (0.0-0.2); Platelet Count 208 X10*3/uL (160-400); Red Blood Count 4.59 X10*6/uL (4.20-5.50); White Blood Count 8.3 X10*3/uL (4.8-10.8)
[2025-06-18 19:32] LABS: Appearance Urine Clear; Glucose Urine UA Negative (Negative); PH 8.0 (5.0-9.0); Specific Gravity - Urine 1.010 (1.005-1.025); UMIC TRIGGER UACC YES
[2025-06-18 20:00] LABS: UACC Culture Trigger YES
[2025-06-18 20:07] LABS: INTERNATIONAL NORM RATIO 3.7 (0.9-1.1); Prothrombin Time 42.9 SEC (10.9-12.4)
[2025-06-18 20:10] LABS: Alanine Aminotransferase 12 U/L (0-31); Albumin Level 3.7 g/dL (3.5-5.0); Alkaline Phosphatase 116 U/L (39-117); Anion Gap 11 (12-20); Aspartate Amino Transferase 19 U/L (5-31); Blood Urea Nitrogen 18 mg/dL (9-16); Calcium 8.6 mg/dL (8.4-10.2); Carbon Dioxide 29 mmol/L (22-29); Chloride 105 mmol/L (96-108); Creatinine Clr Calc Pharmacy 62.5; Estimated Glomerular Filt Rate 54; Potassium 3.8 mmol/L (3.3-5.1); Sodium 141 mmol/L (135-145); Total Protein 6.4 g/dL (6.5-8.0)
[2025-06-18 20:10] LABS: Partial Thromboplastin Time 45.4 SEC (26.0-36.8)
[2025-06-18 20:22] VITALS: BP 110/53; PULSE 53; RESP 16; TEMP 36.8; O2SAT 92
--- NOTE | 2025-06-18 21:43 | PC.NURSE ---
Pt currently up for discharge, in process of calling son for a ride home.
[2025-06-18 22:23] VITALS: BP 137/60; PULSE 56; RESP 16; O2SAT 94
[2025-06-18 22:48] VITALS: BP 137/60; PULSE 56; RESP 16; TEMP 36.9; O2SAT 94
== END 2025-06-18 22:49 | disposition home or self-care (01) ==
PROVIDERS: Emergency Provider Emergency Medicine Emergency Medical Services; PCP Internal Medicine
DX: S20.211A Contusion of right front wall of thorax, initial encounter (principal); W22.8XXA Striking against or struck by other objects, initial encounter; M79.3 Panniculitis, unspecified; N39.0 Urinary tract infection, site not specified; B96.20 Unspecified Escherichia coli [E. coli] as the cause of diseases classified elsewhere; N20.0 Calculus of kidney; R91.1 Solitary pulmonary nodule; R79.1 Abnormal coagulation profile; Y93.89 Activity, other specified; Y92.038 Other place in apartment as the place of occurrence of the external cause; Y99.9 Unspecified external cause status; R10.9 Unspecified abdominal pain; I48.0 Paroxysmal atrial fibrillation; Z79.01 Long term (current) use of anticoagulants; Z79.899 Other long term (current) drug therapy
CPT/HCPCS: 36415; 71250; 80053; 81001; 85025; 85610; 85730; 87086; 87088; 87186; 96374; 96375; 96376; 99284; J1171; J2405

== ENCOUNTER → 2025-06-18 19:00 | Outpatient (BNV) | payer MEDICARE, SELFPAY | PROVIDERS: Emergency Provider Emergency Medicine Emergency Medical Services; PCP Internal Medicine; Visit Provider Radiology Diagnostic Radiology | DX: J98.11 Atelectasis (principal); W19.XXXA Unspecified fall, initial encounter | CPT/HCPCS: 71250 ==

== ENCOUNTER 2025-06-27 10:28 | Outpatient (AMB) | payer MEDICARE, SELFPAY ==
--- OUTSIDE RECORDS SUMMARY | 2025-06-17 09:30 | XMS_ITS ---
Author Organization [facility] Address [address] [place] [address] Care Team Providers Care Unit Control Worker Name Role Phone Wil ALBERTS, Annalee Justice Primary Care Provider Un available Kevin Crowder Unavailable [phone] Allergies Allergen (clinical drug ingredient) Drug/Non Drug [...] Active Encounters Encounter Location Date Provider Diagnosis [facility] [address] [place] [address] 06/17/2025 Kevin Crowder Plan Of Treatment Next Appt Details Provider Name:Kevin Crowder , 08/12/2025 11:00:00 AM, [address] [place], [address], Provider Name:Kevin Jeff Lakesha , 08/26/2025 12:00:00 PM, [address] [facility], [place], [address], Progress Notes * Loan DOWNEYB:1955 (69 yo F)Acc No.[id number]:06/17/2025 Progress Note Patient: Davida SOL Provider: Rebecca Crowder DPM :1955 A ge:69 Y S ex:Female Date:06/17/2025 Address:[address] [place], [place] [address] Pcp:Zachery Giordano Subjective: * Chief Complaints: * [...] Date: 06/17/2025 Generated for Елена linda/Kallie/Kaushalitting on: 06/27/2025 11:09 AM EDT
[2025-06-27 10:38] LABS: Prothrombin Time Whole Bld POC 17.6 sec (11.1-13.5); ~PT, ~INR - Anti Coag Clinic 1.5 (0.9-1.1)
--- NOTE | 2025-06-27 10:54 | MHC.OFFVISCO ---
Intake Intake Visit Reasons: Anticoagulation Allergies Sulfa (Sulfonamide Antibiotics) (SULFA(SULFONAMIDE ANTIBIOTICS)) Allergy (Unknown, Verified 06/27/25 10:30) RASH codeine Adverse Reaction (Verified 06/27/25 10:30) Vomiting oxycodone Adverse Reaction (Verified 06/27/25 10:30) Gastrointestinal Upset Medication List - Last Reconciled 06/27/25 by Mirna Trejo RN amiodarone 200 mg PO DAILY ascorbate calcium (vitamin C) 500 mg PO DAILY bumetanide 1 mg (1/2 x 2 mg) PO DAILY calcium carbonate (Tums) PO cefuroxime axetil 250 mg PO BID 7 days cholecalciferol (vitamin D3) 10 mcg PO DAILY gabapentin 300 mg PO DAILY hydromorphone (Dilaudid) 4 mg PO Q6H PRN multivitamin 1 tab PO DAILY ondansetron 4 mg PO Q6-8H PRN warfarin See Protocol 2.5 mg orally X5 DAYS/ 5MG X 2 DAYS ( and ); Nursing Note INR 1.5 out of therapeutic range Medications and supplements reviewed Patient status: s/p fall last week, 06/18/25 right rib contusion - very painful, pt walks with cane guarded, she also is on antbx for UTI until 06/30/2025, she states she did not feel as though she had an UTI, She is suppose to drive to [place] Friday07/01/2025 Medications or supplements: taking ibuprofen for pain with food -pt aware of bleed risk Denies any signs and symptoms of bleeding or clotting or unusual bruising Bleeding, bruising, clotting discussed Nutritional guidance given: avoid all greens next 3 days Dose: The antbx and ibuprofem should help raise the INR / 5mg today then resume 2.5mg Fri F/U INR Date : 06/30/25 ?? Patient verbalizing understanding of instructions given. Msg to PCP with Pt status of low INR - due to her rib contusions in intercostal spaces it is uncertain if lovneox should be used for low INR - will msg PCP Anti-Coag Initial Assessment Social Hx Patient Tobacco Use Status: Never used Tobacco alcohol intake: never Coding Level of Care Code Est Patient Level 1 Diagnoses Current use of anticoagulant therapy Z79.01 Assessment & Plan Assessment & Plan (1) Current use of anticoagulant therapy: Code(s): Z79.01 - detention (current) use of anticoagulants Category: Medical
--- OUTSIDE RECORDS SUMMARY | 2025-06-27 11:09 | XMS_ITS | Clinical Summary ---
Author Organization [facility] Facility Address [address] [address] Care Team Providers Care Security Guard Dispatcher Name Role Phone Dena Gore MD Primary Care Provider [phone] Allergies Active Allergy Reactions Criticality Noted Date [...] she be seen at the [facility] but she should definitely be quarantined since onset of her symptoms Friday for 14 days. Patient works at [employer] and would like a note for work [...] of the hips bilaterally, referral to [facility] orthopedics for consultation question management. [...] prior to testing. Until then, can try [id number] antihistamine such as generic versions of Margy, [...] age to complete this topic Insurance Medicare [facility] Medicare [facility] Care Teams Security Guard Dispatcher Relationship Specialty Start Date End Date Dena Gore MD [address] [place] [address] PCP - General Internal Medicine 03/13/22
== END 2025-06-27 11:08 | disposition home or self-care (01) ==
LOC: HO.ACS 10:28
PROVIDERS: PCP Internal Medicine; Visit Provider Internal Medicine Medical Oncology
DX: Z79.01 Long term (current) use of anticoagulants (principal)

== ENCOUNTER → 2025-06-27 10:28 | Outpatient (BNVA) | payer MEDICARE, SELFPAY | PROVIDERS: PCP Internal Medicine; Visit Provider Internal Medicine Medical Oncology | DX: Z51.81 Encounter for therapeutic drug level monitoring (principal); Z79.01 Long term (current) use of anticoagulants | CPT/HCPCS: 85610; 99211 ==

== ENCOUNTER 2025-06-29 12:50 | Outpatient (AMB) | payer MEDICARE, SELFPAY ==
--- OUTSIDE RECORDS SUMMARY | 2025-06-17 09:30 | XMS_ITS ---
Author Organization [facility] Address [address] [place] [address] Care Team Providers Care Math Instructor Name Role Phone Wil ALBERTS, Annalee Justice Primary Care Provider Un available Kevin Crowder Unavailable [phone] Allergies Allergen (clinical drug ingredient) Drug/Non Drug [...] Date Provider Diagnosis [facility] [address] [place] [address] 06/17/2025 Kevin Crowder Plan Of Treatment Next Appt Details Provider Name:Kevin Crowder , 08/12/2025 11:00:00 AM, [address] [place], [address], Provider Name:Kevin Jeff Lakesha , 08/26/2025 12:00:00 PM, [address] [facility], [place], [address], Progress Notes * Loan DOWNEYB:1955 (69 yo F)Acc No.[id number]:06/17/2025 Progress Note Patient: Davida SOL Provider: Rebecca Crowder DPM :1955 A ge:69 Y S ex:Female Date:06/17/2025 Address:[address] [place], [place] [id number] Pcp:Zachery Giordano Subjective: * Chief Complaints: * [...] Date: 06/17/2025 Generated for Елена linda/Kallie/Kaushalitting on: 06/29/2025 01:22 PM EDT
--- NOTE | 2025-06-29 13:22 | A.OFFPC_ITS ---
Vital Signs 06/29/25 13:26 Height 5 ft 5 in Weight 244 lb BMI 40.6 BP 136/80 Blood Pressure Location Lt brachial Position Sitting Respiration 16 Pulse 57 Pulse Source Pulse Oximeter Temp 98.0 F Temp Source Oral Pulse Oximetry (%) 97 Oxygen Delivery Method Room Air Intake Visit Reasons: [facility] rib pain due a fall Intake Note: Pt is here today for [facility] rib pain due to a fall Allergies Sulfa (Sulfonamide Antibiotics) (SULFA(SULFONAMIDE ANTIBIOTICS)) Allergy (Unknown, Verified 06/29/25 13:39) RASH codeine Adverse Reaction (Verified 06/29/25 13:39) Vomiting fentanyl Adverse Reaction (Verified 06/29/25 13:39) vomiting hydromorphone (From Dilaudid) Adverse Reaction (Verified 06/29/25 13:39) vomiting oxycodone Adverse Reaction (Verified 06/29/25 13:39) Gastrointestinal Upset Medication List - Last Reconciled 06/29/25 by Annalee De La Torre MD amiodarone 200 mg PO DAILY ascorbate calcium (vitamin C) 500 mg PO DAILY bumetanide 1 mg (1/2 x 2 mg) PO DAILY cefuroxime axetil 250 mg PO BID 7 days cholecalciferol (vitamin D3) 10 mcg PO DAILY gabapentin 300 mg PO DAILY multivitamin 1 tab PO DAILY warfarin See Protocol 2.5 mg orally X5 DAYS/ 5MG X 2 DAYS (TH and HANSON); Tobacco use date assessed: 06/29/25 Fall risk assessment: 1 Fall in past year Last assessed Fall Risk: 06/29/25 Dental Screening Dental Screen Date: 06/29/25 HPI [facility] rib pain due a fall HPI Details - 69-year-old female with past medical h istory significant for DVT, paroxysmal atrial fibrillation on Coumadin, congestive heart failure with preserved ejection fraction, chronic venous insufficiency of bilateral lower extremities, obstructive sleep apnea on CPAP, chronic kidney disease, hyperlipidemia, osteoporosis, morbid obesity who presents today for follow-up after recent ER visit complaining of acute pain on right lower chest. She states that on 06/12/2025, she was bending over to take a bottle out of ortho [employer] been when she lost her balance and fell forward striking her right chest on the lip of the bin. - Initial imaging included rib x-rays on June 16, which showed no acute abnormalities but revealed osteoarthritis of the spine A subsequent CT scan confirmed no rib fractures but noted a 2-mm kidney stone on the right, no significant pleural effusion or pneumothorax., and possible tiny pulmonary nodules not well visualized - The patient reports difficulty sleepin g due to rib pain and has been using a recliner to sleep, and still experiencing pain over said area with deep breathing and movement of trunk. Denies any cough no fever, no chills no fatigue, no weakness, no nausea, no alteration in bowel movements. - She has been ibuprofen for pain manag ement but was advised to avoid excessive ibuprofen due to her Coumadin use. [facility] Medical History Family history of breast cancer in first degree relative Rib pain on left side History of kidney stones Dyslipidemia Osteoporosis Impaired fasting glucose Vaccine refused by patient Elevated brain natriuretic peptide (BNP) level Anemia Morbid obesity Iliotibial band syndrome Lumbosacral radiculopathy due to osteoarthritis of spine History of deep vein thrombophlebitis of lower extremity Positive ALVIN (antinuclear antibody) CKD (chronic kidney disease) stage 3, GFR 30-59 ml/min Osteoarthritis of right ankle and foot Postmenopausal Venous insufficiency of both lower extremities Diverticulitis Peripheral vascular complication of surgical procedure Peripheral vascular disease Hyperlipidemia DVT (deep venous thrombosis) Diastolic heart failure Paroxysmal A-fib BERE (obstructive sleep apnea) Surgical History History of lithotripsy History of cardiac cath Hx of vascular surgery H/O hysterectomy for benign disease Family History Father Emphysema, unspecified Mother No problems noted. Brother Atrial fibrillation Sister Atrial fibrillation Sister Breast cancer Social History Household Members: None Housing: House Do you presently have visiting nurse or other home services: No Alcohol intake: never Patient Tobacco Use Status: Never used Tobacco e-Cigarette/Vaping Use: Never Used service: No Current occupational status: retired and disabled Current occupation: rt handed Cognitive needs: No Hearing needs: No Vision needs: Yes Questionnaire Thrive Questionnaire Date Thrive assessed: 02/02/25 I am a: Patient What is your living situation today?: I have a steady place to live Within the past 12 months, did the food you bought not last and you didn't have the money to get more?: Sometimes True Within the past 12 months, did you worry whether your food would run out before you got money to buy more?: Sometimes True Do you have trouble paying for medicines?: No Do you have trouble getting transportation to medical appointments?: No Do you have trouble paying your heating and electricity bill?: No Do you have trouble taking care of your child, family member or friend?: No Do you have trouble with day-to-day activities such as bathing, preparing meals, shopping, managing finances, etc.?: No Are you currently unemployed and looking for a job?: No Are you interested in more education?: No Please select the resources that you would like help with: None Currently or been in a relationship where the following occur: No concerns reported THRIVE Score: 2 KELLEY-7 AMB Questionnaire KELLEY-7 Date KELLEY - 7 assessed: 02/02/25 Source: Developed by Drs. Tc Noonan, Janet Hinojosa, Isael Andrews and colleagues, with an educational tha from [employer]. Review of Systems Const All systems reviewed & are unremarkable except as noted in HPI and below Physical exam (Primary Care) Vital Signs: Last Vital Signs Temp 98.0 F 06/29/25 13:26 Pulse 57 06/29/25 13:26 Resp 16 06/29/25 13:26 BP 136/80 06/29/25 13:26 Pulse Ox 97 06/29/25 13:26 Oxygen Delivery Method Room Air 06/29/25 13:26 BMI result Body Mass Index 40.6 Tobacco/Smoking Status: Tobacco use Status Tobacco use date assessed 06/29/25 06/29/25 13:25 Patient Tobacco Use Status Never used Tobacco 06/29/25 13:25 e-Cigarette/Vaping Use Never Used 06/29/25 13:25 Thrive Assessment: Date of Thrive Assessment Date Thrive assessed 02/02/25 06/29/25 13:25 Currently or been in a relationship where the following occur: No concerns reported Const Other: Alert oriented x3, no acute distress noted ambulatory normal gait HENMT Head: Yes normocephalic Ears: external ears normal General nose exam: Normal external nose present Face and sinus: Yes face symmetric Mouth: Normal oral and palatal mucosa present and moist mucous membranes Neck Neck: Yes full ROM, Yes no lymphadenopathy and Yes supple Chest Other: Slight tenderness on palpation over right costal margin, no crepitus, No rash overlying area no increased warmth. Resp Effort & Inspection: normal respiratory effort and able to speak in complete sentences Auscultation: clear to auscultation bilaterally Cardio Other: S1-S2 present regular rate and rhythm GI Palpation (GI): Soft to palpation, nontender, no guarding and no masses Skin General skin exam: no rashes or lesions noted Neuro General: gait normal, tone normal, moves all extremities, Normal light touch and pain sensation and no focal motor deficits Extrem General: Yes full ROM, Yes no joint enlargement, Yes no clubbing, cyanosis or edema and Yes normal gait Coding Level of Care Code Est Pt Level 4 (82518) Diagnoses Contusion of rib on right side, subsequent encounter S29.8XXD Encounter type: subsequent encounter Pulmonary nodule seen on imaging study R91.1 Assessment & Plan Assessment & Plan (1) Contusion of rib on right side: Code(s): S29.8XXA - Other specified injuries of thorax, initial encounter Qualifiers: Encounter type: subsequent encounter Qualified Code(s): S29.8XXD - Other specified injuries of thorax, subsequent encounter Plan: Prescription sent for tramadol 50 mg per tablet to take half a tablet, and may take it together with the Tylenol 500 mg tablet once a day as needed only for severe pain try applying either Salonpas patch to affected area or moist heat, but not together, as needed for pain relief (2) Pulmonary nodule seen on imaging study: Code(s): R91.1 - Solitary pulmonary nodule Plan: Possible small pulmonary nodule seen on CT scan of chest. Will repeat CT scan in a year Medications: New tramadol 50 mg PO DAILY PRN 10 tabs 0RF pain, moderate
--- OUTSIDE RECORDS SUMMARY | 2025-06-29 13:22 | XMS_ITS | Clinical Summary ---
Author Organization [facility] Facility Address [address] [address] Care Team Providers Care Cage Maker Machine Name Role Phone Dena Gore MD Primary Care Provider [phone] Allergies Active Allergy Reactions Criticality Noted Date [...] require that she be seen at the [facility] but she should definitely be quarantined since onset of her symptoms Friday for 14 days. Patient works at [employer] and would like a note for work [...] of the hips bilaterally, referral to [facility] orthopedics for consultation question management. The [...] prior to testing. Until then, can try [id number]-[id number] antihistamine such as generic versions of Margy, [...] age to complete this topic Insurance Medicare [facility] Medicare [facility] Care Teams Cage Maker Machine Relationship Specialty Start Date End Date Dena Gore MD [address] [place] [address] PCP - General Internal Medicine 03/13/22
[2025-06-29 13:26] VITALS: BP 136/80; PULSE 57; RESP 16; TEMP 36.7; O2SAT 97; BMI 40.6
== END 2025-06-29 13:57 | disposition home or self-care (01) ==
PROVIDERS: PCP Internal Medicine; Visit Provider Internal Medicine
DX: S29.8XXD Other specified injuries of thorax, subsequent encounter (principal); R91.1 Solitary pulmonary nodule

== ENCOUNTER → 2025-06-29 12:50 | Outpatient (BNVA) | payer MEDICARE, SELFPAY | PROVIDERS: PCP Internal Medicine; Visit Provider Internal Medicine | DX: R91.1 Solitary pulmonary nodule (principal); S29.8XXD Other specified injuries of thorax, subsequent encounter | CPT/HCPCS: 99212 ==

== ENCOUNTER 2025-06-30 11:09 | Outpatient (REF) | payer MEDICARE, SELFPAY ==
[2025-07-01 22:33] LABS: Prot Elec - Albumin 4.0 g/dL (3.8-4.8); Prot Elec - Alpha1 0.3 g/dL (0.2-0.3); Prot Elec - Alpha2 0.6 g/dL (0.5-0.9); Prot Elec - Beta 1 0.4 g/dL (0.4-0.6); Prot Elec - Beta 2 0.4 g/dL (0.2-0.5); Prot Elec - Gamma 1.1 g/dL (0.8-1.7); Prot Elec - Total Protein 6.7 g/dL (6.1-8.1)
== END 2025-06-30 11:10 | disposition home or self-care (01) ==
LOC: HO.LAB 11:09
PROVIDERS: Absent Provider Internal Medicine Endocrinology, Diabetes & Metabolism; PCP Internal Medicine; Visit Provider Internal Medicine Medical Oncology
DX: Z51.81 Encounter for therapeutic drug level monitoring (principal); M81.0 Age-related osteoporosis without current pathological fracture; Z79.01 Long term (current) use of anticoagulants
CPT/HCPCS: 84100; 84165; 85610; 86335; 99211

== ENCOUNTER 2025-06-30 11:09 | Outpatient (AMB) | payer MEDICARE, SELFPAY ==
--- OUTSIDE RECORDS SUMMARY | 2025-06-17 09:30 | XMS_ITS ---
Author Organization [facility] Address [address] [place] [address] Care Team Providers Care Oxide Furnace Tender Name Role Phone Wil ALBERTS, Annalee Justice Primary Care Provider Un available Kevin Crowder Unavailable [phone] Allergies Allergen (clinical drug ingredient) Drug/Non Drug [...] [facility] [address] [place] [address] 06/17/2025 Kevin Crowder Plan Of Treatment Next Appt Details Provider Name:Kevin Crowder , 08/12/2025 11:00:00 AM, [address] [place], [address], Provider Name:Kevin Jeff Lakesha , 08/26/2025 12:00:00 PM, [address] [facility], [place], [address], Progress Notes * Loan DOWNEYB:1955 (69 yo F)Acc No.[id number]:06/17/2025 Progress Note Patient: Davida SOL Provider: Rebecca Crowder DPM :1955 A ge:69 Y S ex:Female Date:06/17/2025 Address:[address] [place], [place] [id number] Pcp:Zachery Giordano Subjective: * Chief Complaints: * [...] Date: 06/17/2025 Generated for Елена linda/Kallie/Kaushalitting on: 06/30/2025 11:45 AM EDT
[2025-06-30 11:23] LABS: Prothrombin Time Whole Bld POC 21.8 sec (11.1-13.5); ~PT, ~INR - Anti Coag Clinic 1.8 (0.9-1.1)
--- NOTE | 2025-06-30 11:43 | MHC.OFFVISCO ---
Intake Intake Visit Reasons: Anticoagulation Allergies Sulfa (Sulfonamide Antibiotics) (SULFA(SULFONAMIDE ANTIBIOTICS)) Allergy (Unknown, Verified 06/30/25 11:18) RASH codeine Adverse Reaction (Verified 06/30/25 11:18) Vomiting fentanyl Adverse Reaction (Verified 06/30/25 11:18) vomiting hydromorphone (From Dilaudid) Adverse Reaction (Verified 06/30/25 11:18) vomiting oxycodone Adverse Reaction (Verified 06/30/25 11:18) Gastrointestinal Upset Nursing Note INR 1.8? out of therapeutic range - PREVIOUS inr 1.5 S/P ER VISIT FOUND TO HAVE RIB CONTUSIONS S/P FALL AND UTI, she was not treated with lovneox per md Treated for rib pain and UTI - on antbx Medications and supplements reviewed Patient status: for ongoing pain she will start tramadol tonight, she completed antbx today - both can raise the INR Diet: ok less with heat and decreased mobility Denies any signs and symptoms of bleeding or clotting or unusual bruising Bleeding, bruising, clotting discussed Nutritional guidance given: resume greens friday or friday Dose: keep same dose 5mg x 2 days/ 2.5mg x 5 days F/U INR Date : 07/06/25 as previously ordered?? Patient verbalizing understanding of instructions given. Anti-Coag Initial Assessment Social Hx Patient Tobacco Use Status: Never used Tobacco alcohol intake: never Coding Level of Care Code Est Patient Level 1 Diagnoses Current use of anticoagulant therapy Z79.01 Results AMB INR Fingerstick AMB INR Fingerstick 1.8 Last Edit by Mirna Trejo RN on 06/30/25 11:24 manual entry Assessment & Plan Assessment & Plan (1) Current use of anticoagulant therapy: Code(s): Z79.01 - half-way (current) use of anticoagulants Category: Medical
--- OUTSIDE RECORDS SUMMARY | 2025-06-30 11:46 | XMS_ITS | Clinical Summary ---
Author Organization [facility] Facility Address [address] [address] Care Team Providers Care Mounted Police Name Role Phone Dena Gore MD Primary Care Provider [phone] Allergies Active Allergy Reactions Criticality Noted Date [...] require that she be seen at the [facility] but she should definitely be quarantined since onset of her symptoms Friday for 14 days. Patient works at [employer] and would like a note for work [...] disease of the hips bilaterally, referral to [facility] orthopedics for consultation question management. The [...] prior to testing. Until then, can try sgjl-lhx-jagimdq antihistamine such as generic versions of Margy, [...] age to complete this topic Insurance Medicare [facility] Medicare [facility] Care Teams Mounted Police Relationship Specialty Start Date End Date Dena Gore MD [address] [place] [address] PCP - General Internal Medicine 03/13/22
== END 2025-06-30 11:47 | disposition home or self-care (01) ==
LOC: HO.ACS 11:09
PROVIDERS: PCP Internal Medicine; Visit Provider Internal Medicine Medical Oncology
DX: Z79.01 Long term (current) use of anticoagulants (principal)

== ENCOUNTER 2025-07-08 10:36 | Outpatient (AMB) | payer MEDICARE, SELFPAY ==
--- OUTSIDE RECORDS SUMMARY | 2025-06-17 09:30 | XMS_ITS ---
Author Organization [facility] Address [address] [place] [address] Care Team Providers Care Products Mechanical Design Engineer Name Role Phone Wil ALBERTS, Annalee Justice Primary Care Provider Un available Kevin Crowder Unavailable [phone] Allergies Allergen (clinical drug ingredient) Drug/Non Drug [...] Encounters Encounter Location Date Provider Diagnosis [facility] [address] [place] [address] 06/17/2025 Kevin Crowder Plan Of Treatment Next Appt Details Provider Name:Kevin Crowder , 08/12/2025 11:00:00 AM, [address] [place], [address], Provider Name:Kevin Jeff Lakesha , 08/26/2025 12:00:00 PM, [address] [facility], [place], [address], Progress Notes * Loan DOWNEYB:1955 (69 yo F)Acc No.[id number]:06/17/2025 Progress Note Patient: Davida SOL Provider: Rebecca Crowder DPM :1955 A ge:69 Y S ex:Female Date:06/17/2025 Address:[address] [place], [place] [id number] Pcp:Zachery Giordano Subjective: * Chief Complaints: * [...] Date: 06/17/2025 Generated for Елена linda/Kallie/Kaushalitting on: 07/08/2025 10:40 AM EDT
--- OUTSIDE RECORDS SUMMARY | 2025-07-08 10:41 | XMS_ITS | Clinical Summary ---
Author Organization [facility] Facility Address [address] [address] Care Team Providers Care Yarn Texture Machine Operator Name Role Phone Dena Gore MD Primary Care Provider [phone] Allergies Active Allergy Reactions Criticality Noted Date [...] that she be seen at the [facility] but she should definitely be quarantined since onset of her symptoms Friday for 14 days. Patient works at [employer] and would like a note for work [...] disease of the hips bilaterally, referral to [facility] orthopedics for consultation question management. The [...] prior to testing. Until then, can try [id number]-[id number] antihistamine such as generic versions of Margy, [...] age to complete this topic Insurance Medicare [facility] Medicare [facility] Care Teams Yarn Texture Machine Operator Relationship Specialty Start Date End Date Dena Gore MD [address] [place] [address] PCP - General Internal Medicine 03/13/22
[2025-07-08 10:52] LABS: Prothrombin Time Whole Bld POC 24.4 sec (11.1-13.5); ~PT, ~INR - Anti Coag Clinic 2.0 (0.9-1.1)
--- NOTE | 2025-07-08 11:01 | MHC.OFFVISCO ---
Intake Intake Visit Reasons: Anticoagulation Allergies Sulfa (Sulfonamide Antibiotics) (SULFA(SULFONAMIDE ANTIBIOTICS)) Allergy (Unknown, Verified 07/08/25 10:47) RASH codeine Adverse Reaction (Verified 07/08/25 10:47) Vomiting fentanyl Adverse Reaction (Verified 07/08/25 10:47) vomiting hydromorphone (From Dilaudid) Adverse Reaction (Verified 07/08/25 10:47) vomiting oxycodone Adverse Reaction (Verified 07/08/25 10:47) Gastrointestinal Upset Medication List - Last Reconciled 07/08/25 by Rachael Dunlap RN amiodarone 200 mg PO DAILY ascorbate calcium (vitamin C) 500 mg PO DAILY bumetanide 1 mg (1/2 x 2 mg) PO DAILY cefuroxime axetil 250 mg PO BID 7 days cholecalciferol (vitamin D3) 10 mcg PO DAILY gabapentin 300 mg PO DAILY multivitamin 1 tab PO DAILY tramadol 50 mg PO DAILY PRN warfarin See Protocol 2.5 mg orally X5 DAYS/ 5MG X 2 DAYS ( and ); Anti-Coag Initial Assessment Social Hx Patient Tobacco Use Status: Never used Tobacco alcohol intake: never Coding Diagnoses Current use of anticoagulant therapy Z79.01 Assessment & Plan Assessment & Plan (1) Current use of anticoagulant therapy: Code(s): Z79.01 - parts counterman (current) use of anticoagulants Category: Medical
--- NOTE | 2025-07-08 11:01 | MHC.OFFVISCO ---
Intake Intake Visit Reasons: Anticoagulation Allergies Sulfa (Sulfonamide Antibiotics) (SULFA(SULFONAMIDE ANTIBIOTICS)) Allergy (Unknown, Verified 07/08/25 10:47) RASH codeine Adverse Reaction (Verified 07/08/25 10:47) Vomiting fentanyl Adverse Reaction (Verified 07/08/25 10:47) vomiting hydromorphone (From Dilaudid) Adverse Reaction (Verified 07/08/25 10:47) vomiting oxycodone Adverse Reaction (Verified 07/08/25 10:47) Gastrointestinal Upset Medication List - Last Reconciled 07/08/25 by Rachael Dunlap, RN amiodarone 200 mg PO DAILY ascorbate calcium (vitamin C) 500 mg PO DAILY bumetanide 1 mg (1/2 x 2 mg) PO DAILY cefuroxime axetil 250 mg PO BID 7 days cholecalciferol (vitamin D3) 10 mcg PO DAILY gabapentin 300 mg PO DAILY multivitamin 1 tab PO DAILY tramadol 50 mg PO DAILY PRN warfarin See Protocol 2.5 mg orally X5 DAYS/ 5MG X 2 DAYS ( and ); Nursing Note NO CP,SOB,DIET/MED CHANGES,FALLS OR SX OF BLEEDING. BOOST TO 5MGM TODAY TO ALLOW FOR PLANNED GREENS TODAY AND TOMORROW, THEN RESUME USUAL DOSING AND FOLLOW-UP IN 2 WEEKS GOOD UNDERSTANDING OF DOSING INSTR. Anti-Coag Initial Assessment Social Hx Patient Tobacco Use Status: Never used Tobacco alcohol intake: never Coding Level of Care Code Est Patient Level 1 Diagnoses Current use of anticoagulant therapy Z79.01 Assessment & Plan Assessment & Plan (1) Current use of anticoagulant therapy: Code(s): Z79.01 - manager long term care (current) use of anticoagulants Category: Medical
== END 2025-07-08 11:06 | disposition home or self-care (01) ==
LOC: HO.ACS 10:36
PROVIDERS: PCP Internal Medicine; Visit Provider Internal Medicine Medical Oncology
DX: Z79.01 Long term (current) use of anticoagulants (principal)

== ENCOUNTER → 2025-07-08 10:36 | Outpatient (BNVA) | payer MEDICARE, SELFPAY | PROVIDERS: PCP Internal Medicine; Visit Provider Internal Medicine Medical Oncology | DX: Z51.81 Encounter for therapeutic drug level monitoring (principal); Z79.01 Long term (current) use of anticoagulants | CPT/HCPCS: 85610; 99211 ==

== ENCOUNTER 2025-07-20 11:13 | Outpatient (AMB) | payer MEDICARE, SELFPAY ==
--- OUTSIDE RECORDS SUMMARY | 2024-07-14 09:41 | XMS_ITS | Continuity of Care Document ---
Author Organization [facility] Address [address] [place] [address] Phone Care Team Providers Care Seat Nailer Name Role Phone Miguel ALBERTS, RVT, RPVI, [...] Providers Copied on Encounter [facility], [address] [place] [address] Dr Stack 1000Suite 1000Dottie [place], [id number], [place] tel:[phone] [place] - [place] No Information 4 Miguel ALBERTS RVT, MARY Montez. [address] [place] [address], [place], [place], [id number], [place]. tel:[phone] [place] [facility], [address] [place] [address] Dr Stack 1000Suite 1000Dottie MD, [id number], [place] tel:[phone] CVR - [facility] Encounter for follow-up examination after completed treatment for conditions other than malignant nePain in left leg 4 Miguel ALBERTS RVT, MARY Montez. [address] [place] [address], [place], [place], [id number], [place]. tel:[phone] Referring Provider: Korina JIANGP, [address] [place] [address], [address]. tel:[phone] [place] [facility], [address] [place] [address] Dr Stack 1000Suite 1000Dottie [place], [id number], [place] tel:[phone] CVR [facility] Varicose veins of left lower extremity with other complication s 4 Anjelica Reeder. [address] [place] [address], [facility] [place], [id number], [place]. tel:[phone] Referring Provider: Korina FAJARDO, [address] [place] [address], [address]. tel:[phone] [place] [facility], [address] [place] [address] Dr Stack 1000Suite 1000Dottie MD, [id number], [place] tel:[phone] [place] - [place] Varicose veins of left lower extremity with other complication s 4 Miguel ALBERTS RVT, MARY Montez. [address] [place] [address], [place], [place], [id number], [place]. tel:[phone] Referring Provider: Korina FAJARDO, [address] [place] [address], [facility]. tel:[phone] Office/Outpt E&M Established 15 Mins- CT & [place] [facility], [address] [place] [address] Dr Stack 1000Suite Dottie Greer [place], [id number], [place] tel:[phone] CVR - [place] Pruritus, unspecifiedV aricose veins of left lower extremity with other complication sLocalized edemaCramp and spasmRestles s legs syndrome 4 Miguel ALBERTS RVT, MARY Montez. [address] [place] [address], [facility] [place], [id number], [place]. tel:[phone] Referring Provider: Korina FAJARDO, [address] [place] [address], [facility]. tel:[phone] [facility], [address] [place] [address] Dr Stack 1000SuDottie hodge MD, [id number], [place] tel:[phone] [place] - [place] Encounter for follow-up examination after completed treatment for conditions other than malignant neChronic venous hypertension (idiopathic) with other complication s of bilateral lower extremity 4 Miguel ALBERTS RVT, MARY Montez. [address] [place] [address], [facility] [place], [id number], [place]. tel:[phone] Referring Provider: Korina FAJARDO, [address] [place] [address], [facility]. tel:[phone] rPecious [facility], [address] [place] [address] Dr Stack 1000Suite 1000Dottie [place], [id number], [place] tel:[phone] CVR [facility] Encounter for follow-up examination after completed treatment for conditions other than malignant neoplasmVari cose veins of left lower extremity with pain 4 Elizabeth Beth. [address] [facility], [address], [place], [place], [id number], [place]. tel:[phone] Referring Provider: Korina FAJARDO, [address] [place] [address], [address]. tel:[phone] [facility], [address] [place] [address] Dr Stack 1000[facility] [place], [id number], [place] tel:[phone] CVR [facility] Varicose veins of left lower extremity with other complication s 4 Miguel ALBERTS RVT, MARY Montez. [address] [place] [address], [place], [id number], [place]. tel:[phone] Referring Provider: Korina FAJARDO, [address] [place] [address], [address]. tel:[phone] [place] [facility], [address] [place] [address] Dr Stack 1000[facility] [place], [id number], [place] tel:[phone] [facility] No Information 4 Miguel ALBERTS RVT, MARY Montez. [address] [place] [address], [place], [id number], [place]. tel:[phone] [facility], [address] [place] [address] Dr Stack 1000Suite Dottie Greer MD, [id number], [place] tel:[phone] CVR - [facility] Encounter for follow-up examination after completed treatment for conditions other than malignant neoplasmChro savi venous hypertension (idiopathic) with other complication s of right lower extremity 4 Miguel ALBERTS RVT, MARY Montez. [address] [place] [address], [place], [id number], [place]. tel:[phone] Referring Provider: Korina FAJARDO, [address] [place] [address], [facility]. tel:[phone] [facility], [address] [place] [address] Dr Stack 1000SuDottie hodge MD, [id number], [place] tel:[phone] CVR - [facility] Varicose veins of right lower extremity with other complication s 4 Miguel ALBERTS RVT, RPVI Robert. [address] [place] [address], [facility], [place], [id number], [place]. tel:[phone] Referring Provider: Korina FAJARDO, [address] [place] [address], [facility]. tel:[phone] [facility], [address] [place] [address] Dr Stack 1000SuDottie hodge MD, [id number], [place] tel:[phone] CVR - [facility] Encounter for follow-up examination after completed treatment for conditions other than malignant neVaricose veins of right lower extremity with pain 4 Miguel ALBERTS RVT, RPVI Robert. [address] [place] [address], [facility] [place], [id number], [place]. tel:[phone] Referring Provider: Korina FAJARDO, [address] [place] [address], [facility]. tel:[phone] [facility], [address] [place] [address] Dr Stack 1000SuDottie hodge MD, [id number], [place] tel:[phone] CVR - [facility] No Information 4 Miguel ALBERTS RVT, MARY Montez. [address] [place] [address], [facility] [place], [id number], [place]. tel:[phone] [facility], [address] [place] [address] Dr Stack 1000SuDottie hodge MD, [id number], [place] tel:[phone] CVR - [facility] Chronic venous hypertension (idiopathic) with inflammation of right lower extremity 4 Miguel ALBERTS RVT, MARY Montez. [address] [place] [address], [place], [place], [id number], . tel:[phone] Referring Provider: Korina FAJARDO, [address] [place] [address], [facility]. tel:[phone] Offic/outpt E&m Estab 5 Min Trial- Telemedicine CT & [place] [facility] [place], [address] [place] [address] Dr Stack 1000Suite Dottie Greer MD, [id number], [place] tel:[phone] [place] - [place] Localized edemaCramp and spasmRestles s legs syndromeVeno us insufficienc y (chronic) (peripheral) Pruritus, unspecified Apr- 4 Dayo Camarillo. [address] [place] [address], [place], [place], [id number], [place]. tel:[phone] Referring Provider: Korina FAJARDO, [address] [place] [address], [address]. tel:[phone] Office/Oupt E&M New Pt 45 Mins [facility], [address] [place] [address] Dr Stack 1000Suite Dottie Greer MD, [id number], [place] tel:[phone] [place] - [place] Varicose veins of bilateral lower extremities with other complication Jarrod in right lower legPain in left lower legPain in right legRestless legs syndromePrur itus, unspecifiedP ain in left legCramp and spasmLocaliz ed edema Dec- 4 Miguel ALBERTS, RVT, MARY Montez. [address] [place] [address], [place], [place], [id number], [place]. tel:[phone] Referring Provider: LIS PHILLIPS MD MPH R, [address] [facility] [address], [place], [address]. tel:[phone] [facility], [address] [place] [address] Dr Stack 1000SuDottie hodge MD, [id number], [place] tel:[phone] CV[place] - [place] Chronic venous hypertension (idiopathic) with other complication s of bilateral lower extremity Miguel ALBERTS, RVT, MARY Montez. [address] [facility], [address], [place]icelio CATHERINE [place], [id number], [place]. tel:[phone] Referring Provider: Korina JIANGP, [address] [place], [address]. tel:[phone] Family History Family Member Type Diagnosis Age At Onset No Information Payers Payer name Insurance type Covered constitution party ID Authormanuela ramirez(s) [facility] [id number] Social History Type Description Quantity Date Captured [...]
--- OUTSIDE RECORDS SUMMARY | 2024-12-16 09:00 | XMS_ITS ---
Author Organization [facility] Address [address] [place] [address] Care Team Providers Care Airline Pilot/First Officer Name Role Phone Wil ALBERTS, Annalee Justice Primary Care Provider Un available Kevin Crowder Unavailable [phone] Isabelle Schmid [phone] REASON FOR VISIT sooner appt Encounters Encounter Location Date Provider Diagnosis [address] [address] 12/16/2024 Isabelle Schmid Plan Of Treatment Next Appt Details Provider Name:Kevin Crowder , 08/12/2025 11:00:00 AM, [address] [place] [address], [address], Provider Name:Kevin Crowder , 08/26/2025 12:00:00 PM, [address] [place] [address], [address], Progress Notes * Donald RUIZIlaB:1955 (69 yo F)Acc No.[id number]:12/16/2024 Progress Notes Patient: S Davida ANGEL Provider: Piper Schmid DPM :1955 A ge:69 Y S ex:Female Date:12/16/2024 Address:[address] [place], [place] [id number] Pcp:Zachery Giordano Subjective: * Chief Complaints: * [...] 12/16/2024 Generated for Елена linda/Kallie/Juancarlos on: 0 07/20/2025 12:08 PM EDT
--- OUTSIDE RECORDS SUMMARY | 2025-06-17 09:30 | XMS_ITS ---
Author Organization [facility] Address [address] [place] [address] Care Team Providers Care Research And Development Specialist Name Role Phone Wil ALBERTS, Annalee Justice Primary Care Provider Un available Kevin Crowder Unavailable [phone] Allergies Allergen (clinical drug ingredient) Drug/Non Drug [...] Encounters Encounter Location Date Provider Diagnosis [facility] [address] [place] [address] 06/17/2025 Kevin Crowder Plan Of Treatment Next Appt Details Provider Name:Kevin Crowder , 08/12/2025 11:00:00 AM, [address] [place], [address], Provider Name:Kevin Jeff Lakesha , 08/26/2025 12:00:00 PM, 81 [facility], [place], [address], Progress Notes * Loan DOWNEYB:1955 (69 yo F)Acc No.[id number]:06/17/2025 Progress Note Patient: Davida SOL Provider: Rebecca Crowder DPM :1955 A ge:69 Y S ex:Female Date:06/17/2025 Address:[address] [place], [place] [id number] Pcp:Zachery Giordano Subjective: * Chief Complaints: * [...] Date: 06/17/2025 Generated for Елена linda/Kallie/Kaushalitting on: 07/20/2025 12:08 PM EDT
--- OUTSIDE RECORDS SUMMARY | 2025-07-20 12:09 | XMS_ITS | Patient Health Record ---
Author Organization [facility] Clarisa sandra Anthony Address [address] [facility] [address] Care Team Providers Care Extraction Operator Name Role Phone Wil ALBERTS, Annalee Justice Primary Care Provider Un available Lakesha, Kevin Unavailable [phone] Schmid Isabelle Unavailable [phone] Allergies Allergen (clinical drug ingredient) Drug/Non Drug [...] e a day; Duration: 30 day(s) Active Warfarin Sodium 2.5 MG 1 tablet Orally O nce a day Active Amiodarone HCl 200 MG 1 tablet Orally On ce a day; Duration: 30 days Active Spironolactone 25 MG 1 tablet Orally; Duration: 30 day(s) Not-Taking Keflex 500 500 MG 1 capsule Orally anushka ry 12 hrs; Duration: 10 day(s) 03/21/2021 Not-Edd ing Warfarin Sodium 5 MG 1 tablet Orally Onc e a day; Duration: 30 days Active Social History Tobacco Use: [...] Osteoarthritis of midtarsal joint of left foot (7460285245198626 ) Osteoarthritis of midtarsal joint of left foot (M19.072) Active confirmed Problem Osteoarthritis of midtarsal joint of right foot (2977480579359835 ) Osteoarthritis of midtarsal joint of right foot (M19.071) Active confirmed Vital Signs Blood pressure diastolic 70 mm Hg 03/15/2025 Height 5 ft 5 in in 03/15/2025 Blood pressure systolic 130 mm Hg 03/15/2025 Weight 232 lbs 03/15/2025 BMI 38.6 kg/m2 03/15/2025 Procedures Procedure Date Ordered Date Performed Result Body Sit e 34815-OCEEWBM NAIL, 1-5 12/07/2024 N/A 72828-Fskvauoq Plate 12/07/2024 N/A 22397-ICQA SKIN LESIONS, 2 TO 4 12/07/2024 N/A T0496-BZZZFHAL DYSTROPHIC NAILS ANY # 12/07/2024 N/A 42210-LXAARVC NAIL, 1-5 03/15/2025 N/A 30832-Stfcgreg Plate 03/15/2025 N/A 37366-KSEE SKIN LESIONS, 2 TO 4 03/15/2025 N/A F6233-AXINOVHZ DYSTROPHIC NAILS ANY # 03/15/2025 N/A Encounters Encounter Location Date Provider Diagnosis [facility] [address] [place] [address] 12/07/2024 Kevin Crowder Atherosclerosis of artery of [...] right foot M19.071 and Ingrown nail L60.[address] [facility] [address] 03/15/2025 Kevin Crowder Atherosclerosis of artery of both lower extremities I70.203 ; Tinea unguium B35.1 ; Pain in right toe(s) M79.674 ; Pain in left toe(s) M79.675 ; 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 ; Osteoarthritis of midtarsal joint of right foot M19.071 and Ingrown nail L60.[address] [address] 10/11/2024 Isabelle Schmid [address] [address] 12/07/2024 Kevin Crowder [address] [address] 06/17/2025 Kevin Crowder Assessments Encounter Date Diagnosis (ICD [...] X ray : Foot, right 3V 03/21/2021 87630-DMZUOEF NAIL, 1-5 12/07/2024 51603-HLBKGNN NAIL, 1-5 03/15/2025 20857-Wtxkzyie Plate 03/15/2025 36935-Yejmnwuc Plate 12/07/2024 66689-DJSJ SKIN LESIONS, 2 TO 4 12/07/19 54973-YRSA SKIN LESIONS, 2 TO 4 03/15/20 25 D8082-MFABOBMV DYSTROPHIC NAILS ANY # V9358-KFTLSAGS DYSTROPHIC NAILS ANY # X ray : Ankle, right 3V 03/21/2021 Next Appt Details Provider Name:Kevin Crowder , 08/12/2025 11:00:00 AM, [address] [place], [address], Provider Name:Kevin Crowder , 08/26/2025 12:00:00 PM, [address] [facility], [place], [address], Insurance Providers Payer Name Payer Address Payer Phone Subscriber Number Group Number Insured Name Patient Relationship to Insured Coverage Start Date Coverage End Date Medicare [employer] [address] [place] [address] [id number] JoseDavida castano Self - patient is the insured 1 [employer] [facility] [address] [place] [address] [id number] Davida Downey Self - patient is the [...]
--- OUTSIDE RECORDS SUMMARY | 2025-07-20 12:09 | XMS_ITS | Clinical Summary ---
Author Organization [facility] Facility Address [address] [address] Care Team Providers Care Production Administrative Assistant Name Role Phone Dena Gore MD Primary Care Provider [phone] Allergies Active Allergy Reactions Criticality Noted Date [...] Friday for 14 days. Patient works at [employer] and would like a note for work [...] disease of the hips bilaterally, referral to [facility] orthopedics for consultation question management. The [...] prior to testing. Until then, can try [id number]-xbp-ehmrunc antihistamine such as generic versions of Margy, [...] age to complete this topic Insurance Medicare [facility] Medicare [facility] Care Teams Production Administrative Assistant Relationship Specialty Start Date End Date Dena Gore MD [address] [place] [address] PCP - General Internal Medicine 03/13/22
--- NOTE | 2025-07-20 14:35 | MHC.OFFVISCO ---
Intake Intake Visit Reasons: Anticoagulation Allergies Sulfa (Sulfonamide Antibiotics) (SULFA(SULFONAMIDE ANTIBIOTICS)) Allergy (Unknown, Verified 07/20/25 11:14) RASH codeine Adverse Reaction (Verified 07/20/25 11:14) Vomiting fentanyl Adverse Reaction (Verified 07/20/25 11:14) vomiting hydromorphone (From Dilaudid) Adverse Reaction (Verified 07/20/25 11:14) vomiting oxycodone Adverse Reaction (Verified 07/20/25 11:14) Gastrointestinal Upset Medication List - Last Reconciled 07/20/25 by Rachael Dunlap RN amiodarone 200 mg PO DAILY ascorbate calcium (vitamin C) 500 mg PO DAILY bumetanide 1 mg (1/2 x 2 mg) PO DAILY cefuroxime axetil 250 mg PO BID 7 days cholecalciferol (vitamin D3) 10 mcg PO DAILY gabapentin 300 mg PO DAILY multivitamin 1 tab PO DAILY tramadol 50 mg PO DAILY PRN warfarin See Protocol 2.5 mg orally X5 DAYS/ 5MG X 2 DAYS ( and HANSON); Nursing Note NO CP,SOB,DIET/MED CHANGES,FALLS OR SX OF BLEEDING. HOLD WARFARIN TODAY THEN RESUME USUAL DOSE AND FOLLOW-UP IN 3 WEEKS GOOD UNDERSTANDING VERB. Anti-Coag Initial Assessment Social Hx Patient Tobacco Use Status: Never used Tobacco alcohol intake: never Coding Level of Care Code Est Patient Level 1 Diagnoses Current use of anticoagulant therapy Z79.01 Results AMB INR Fingerstick AMB INR Fingerstick 3.5 Last Edit by Rachael Dunlap RN on 07/20/25 11:23 Assessment & Plan Assessment & Plan (1) Current use of anticoagulant therapy: Code(s): Z79.01 - longterm (current) use of anticoagulants Category: Medical
[2025-07-21 08:08] LABS: Prothrombin Time Whole Bld POC 42.3 sec (11.1-13.5); ~PT, ~INR - Anti Coag Clinic 3.5 (0.9-1.1)
== END 2025-07-20 14:37 | disposition home or self-care (01) ==
LOC: HO.ACS 11:13
PROVIDERS: PCP Internal Medicine; Visit Provider Internal Medicine Medical Oncology
DX: Z79.01 Long term (current) use of anticoagulants (principal)

== ENCOUNTER → 2025-07-20 11:13 | Outpatient (BNVA) | payer MEDICARE, SELFPAY | PROVIDERS: PCP Internal Medicine; Visit Provider Internal Medicine Medical Oncology | DX: Z51.81 Encounter for therapeutic drug level monitoring (principal); Z79.01 Long term (current) use of anticoagulants | CPT/HCPCS: 85610; 99211 ==

== ENCOUNTER 2025-07-21 09:56 | Outpatient (AMB) | payer MEDICARE, SELFPAY ==
--- OUTSIDE RECORDS SUMMARY | 2024-07-14 09:41 | XMS_ITS | Continuity of Care Document ---
Author Organization 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 [address] [place] [address], [place], [id number], [place]. tel:[phone] [facility] [place], [address] [place] [address] Dr Stack 1000Suite 1000Dottie [place], [id number], [place] tel:[phone] CVR - [place] Varicose veins of left lower extremity with other complication s 4 Anjelica Reeder. [address] [place] [address], [facility] [place] [place], [id number], [place]. tel:[phone] Referring Provider: Korian FAJARDO, [address] [place] [address], [address]. tel:[phone] [facility], [address] [place] [address] Dr Stack 1000[address] 1000, [place], [id number], [place] tel:[phone] CVR - [place] Encounter for follow-up examination after completed treatment for conditions other than malignant nePain in left leg 4 Miguel ALBERTS RVT, MARY Montez. [address] [place] [address], [place], [id number], [place]. tel:[phone] Referring Provider: Korina FAJARDO, [facility] [place], [address]. tel:[phone] [facility], [address] [place] [address] Dr Stack 1000Suite 1000Dottie [place], [id number], [place] tel:[phone] CVR - [place] Varicose veins of left lower extremity with other complication s 4 Miguel ALBERTS RVT, MARY Montez. [address] [place] [address], [place], [place], [id number], [place]. tel:[phone] Referring Provider: Korina FAJARDO, [address] [place] [address], [facility]. tel:[phone] Office/Outpt E&M Established 15 Mins- CT & [place] [facility], [address] [place] [address] Dr Stack 1000Suite [place], [id number], [place] tel:[phone] CVR - [place] - [place] Pruritus, unspecifiedV aricose veins of left lower extremity with other complication sLocalized edemaCramp and spasmRestles s legs syndrome 4 Miguel ALBERTS RVT, MARY Montez. [address] [place] [address], [facility] [place], [id number], [place]. tel:[phone] Referring Provider: Korina FAJARDO, [address] [place] [address], [facility]. tel:[phone] [facility], [address] [place] [address] Dr Stack 1000SuDottie hodge MD, [id number], [place] tel:[phone] CVR - [place] Encounter for follow-up examination after completed treatment for conditions other than malignant neChronic venous hypertension (idiopathic) with other complication s of bilateral lower extremity 4 Miguel ALBERTS RVT, MARY Montez. [address] [place] [address], [facility] [place], [id number], [place]. tel:[phone] Referring Provider: Korina FAJARDO, [address] [place] [address], [facility]. tel:[phone] [facility], [address] [place] [address] Dr Stack 1000Suite 1000Dottie [place], [id number], [place] tel:[phone] CVR [facility] Encounter for follow-up examination after completed treatment for conditions other than malignant neoplasmVari cose veins of left lower extremity with pain 4 Elizabeth Beth. [address], [address], [place], [place], [id number], [place]. tel:[phone] Referring Provider: Korina FAJARDO, [address] [place] [address], [address]. tel:[phone] [facility], [address] [place] [address] Dr Stack 1000[facility] [place], [id number], [place] tel:[phone] CVR [facility] Varicose veins of left lower extremity with other complication s 4 Miguel ALBERTS RVT, MARY Montez. [address] [place] [address], [place], [id number], [place]. tel:[phone] Referring Provider: Korina FAJARDO, [address] [place] [address], [address]. tel:[phone] [facility], [address] [place] [address] Dr Stack 1000[facility] [place], [id number], [place] tel:[phone] [facility] No Information 4 Miguel ALBERTS RVT, MARY Montez. [address] [place] [address], [place], [id number], [place]. tel:[phone] [facility], [address] [place] [address] Dr Stack 1000Suite Dottie [place], [id number], [place] tel:[phone] CVR - [facility] Encounter for follow-up examination after completed treatment for conditions other than malignant neoplasmChro savi venous hypertension (idiopathic) with other complication s of right lower extremity 4 Miguel ALBERTS RVT, MARY Montez. [address] [place] [address], [place], [id number], [place]. tel:[phone] Referring Provider: Korina FAJARDO, [address] [place] [address], [facility]. tel:[phone] [facility], [address] [place] [address] Dr Stack 1000SuDottie hodge MD, [id number], [place] tel:[phone] CVR - [facility] Varicose veins of right lower extremity with other complication s 4 Miguel ALBERTS RVT, RPVI Robert. [address] [place] [address], [facility], [place], [id number], [place]. tel:[phone] Referring Provider: Korina FAJARDO, [address] [place] [address], [facility]. tel:[phone] [facility], [address] [place] [address] Dr Stack 1000SuDottie hodge MD, [id number], [place] tel:[phone] CVR - [facility] Encounter for follow-up examination after completed treatment for conditions other than malignant neVaricose veins of right lower extremity with pain 4 Miguel ALBERTS RVT, RPVI Robert. [address] [place] [address], [facility] [place], [place], [id number], [place]. tel:[phone] Referring Provider: Korina FAJARDO, [address] [place] [address], [facility]. tel:[phone] [facility], [address] [place] [address] Dr Stack 1000SuDottie hodge MD, [id number], [place] tel:[phone] CVR - [facility] No Information 4 Miguel ALBERTS RVT, MARY Montez. [address] [place] [address], [facility] [place], [place], [id number], [place]. tel:[phone] [facility], [address] [place] [address] Dr Stack 1000SuDottie hodge MD, [id number], [place] tel:[phone] CVR - [facility] Chronic venous hypertension (idiopathic) with inflammation of right lower extremity 4 Miguel ALBERTS RVT, MARY Montez. [address] [place] [address], [place], [place], [id number], . tel:[phone] Referring Provider: Korina FAJARDO, [address] [place] [address], [facility]. tel:[phone] Offic/outpt E&m Estab 5 Min Trial- Telemedicine CT & [place] [facility] [place], [address] [place] [address] Dr Stack 1000Suite Dottie [place], [id number], [place] tel:[phone] CVR - [place] Localized edemaCramp and spasmRestles s legs syndromeVeno us insufficienc y (chronic) (peripheral) Pruritus, unspecified Apr- 4 Dayo Camarillo. [address] [place] [address], [place], [place], [id number], [place]. tel:[phone] Referring Provider: Korina FAJARDO, [address] [place] [address], [address]. tel:[phone] Office/Oupt E&M New Pt 45 Mins [facility], [address] [place] [address] Dr Stack 1000Suite Dottie [place], [id number], [place] tel:[phone] CVR - [place] - [place] Varicose veins of bilateral lower extremities with other complication Jarrod in right lower legPain in left lower legPain in right legRestless legs syndromePrur itus, unspecifiedP ain in left legCramp and spasmLocaliz ed edema Dec- 4 Miguel ALBERTS, RVT, MARY Montez. [address] [place] [address], [place], [place], [id number], [place]. tel:[phone] Referring Provider: LIS PHILLIPS MD MPH R, [address] [facility] [address], [place], [address]. tel:[phone] [facility], [address] [place] [address] Dr Stack 1000SuDottie hodge [place], [id number], [place] tel:[phone] CVR - [place] Chronic venous hypertension (idiopathic) with other complication s of bilateral lower extremity 4 Miguel ALBERTS, RVT, MARY Montez. [address] [facility] [facility] [address], [address], [place], [id number], [place]. tel:[phone] Referring Provider: Korina Puente [facility], [address] [place], [address]. tel:[phone] Family History Family Member Type Diagnosis Age At Onset No Information Payers Payer name Insurance type Covered democrat ID Anny ramirez(s) [facility] [id number] Social History Type Description Quantity Date Captured [...] of left lower extremity with other complications Pre and post instruc tions reviewed and [...]
--- OUTSIDE RECORDS SUMMARY | 2024-12-16 09:00 | XMS_ITS ---
Author Organization [facility] Address [address] [place] [address] Care Team Providers Care Sign Shop Supervisor Name Role Phone Wil ALBERTS, Annalee Justice Primary Care Provider Un available Kevin Crowder Unavailable [phone] Isabelle Schmid [phone] REASON FOR VISIT sooner appt Encounters Encounter Location Date Provider Diagnosis [address] [address] 12/16/2024 Isabelle Schmid Plan Of Treatment Next Appt Details Provider Name:Kevin Crowder , 08/12/2025 11:00:00 AM, [address] [place] [address], [address], Provider Name:Kevin Crowder , 08/26/2025 12:00:00 PM, [address] [place] [address], [address], Progress Notes * Donald RUIZIlaB:1955 (69 yo F)Acc No.[id number]:12/16/2024 Progress Notes Patient: S Davida ANGEL Provider: Piper Schmid DPM :1955 A ge:69 Y S ex:Female Date:12/16/2024 Address:[address] [place], [place] [id number] Pcp:Zachery Giordano Subjective: * Chief Complaints: * [...] DPM Date: 0 12/16/2024 Generated for Елена linda/Kallie/Juancarlos on: 0 07/21/2025 11:07 AM EDT
--- OUTSIDE RECORDS SUMMARY | 2025-06-17 09:30 | XMS_ITS ---
Author Organization [facility] Address [address] [place] [address] Care Team Providers Care Engine Turner Name Role Phone Wil ALBERTS, Annalee Justice Primary Care Provider Un available Kevin Crowder Unavailable [phone] Allergies Allergen (clinical drug ingredient) Drug/Non Drug [...] Active Encounters Encounter Location Date Provider Diagnosis [facility] [address] [place] [address] 06/17/2025 Kevin Crowder Plan Of Treatment Next Appt Details Provider Name:Kevin Crowder , 08/12/2025 11:00:00 AM, [address] [place], [address], Provider Name:Kevin Jeff Lakesha , 08/26/2025 12:00:00 PM, [address] [facility], [place], [address], Progress Notes * Loan DOWNEYB:1955 (69 yo F)Acc No.[id number]:06/17/2025 Progress Note Patient: Davida SOL Provider: Rebecca Crowder DPM :1955 A ge:69 Y S ex:Female Date:06/17/2025 Address:[address] [place], [place] [id number] Pcp:Zachery Giordano Subjective: * Chief Complaints: * [...] Pending * Provider: Rebecca Crowder DPM Date: 06/17/2025 Generated for Елена linda/Kallie/Kaushalitting on: 07/21/2025 11:07 AM EDT
--- NOTE | 2025-07-21 09:58 | A.OFFVIS_ITS ---
Vital Signs 07/21/25 10:01 Height 5 ft 4.25 in Weight 242 lb 1.081 oz BMI 41.2 BP 132/74 Blood Pressure Location Rt brachial Position Sitting Pulse 54 Pulse Source Pulse Oximeter Pulse Oximetry (%) 97 Oxygen Delivery Method Room Air Intake Visit Reasons: f/u osteoporosis Intake Note: Patient present today for Osteoporosis follow up. Skill Training Program Coordinator Required: No Accompanied by: Friend-Rehana Allergies Sulfa (Sulfonamide Antibiotics) (SULFA(SULFONAMIDE ANTIBIOTICS)) Allergy (Unknown, Verified 07/21/25 10:02) RASH codeine Adverse Reaction (Verified 07/21/25 10:02) Vomiting fentanyl Adverse Reaction (Verified 07/21/25 10:02) vomiting hydromorphone (From Dilaudid) Adverse Reaction (Verified 07/21/25 10:02) vomiting oxycodone Adverse Reaction (Verified 07/21/25 10:02) Gastrointestinal Upset Medication List - Last Reconciled 07/21/25 by Tc Villa MD amiodarone 200 mg PO DAILY ascorbate calcium (vitamin C) 500 mg PO DAILY bumetanide 1 mg (1/2 x 2 mg) PO DAILY cefuroxime axetil 250 mg PO BID 7 days cholecalciferol (vitamin D3) 10 mcg PO DAILY gabapentin 300 mg PO DAILY multivitamin 1 tab PO DAILY tramadol 50 mg PO DAILY PRN warfarin See Protocol 2.5 mg orally X5 DAYS/ 5MG X 2 DAYS ( and ); HPI Comments Details: 69 YO Female is seen in consultation at the request of PCP for Osteoporosis.The patient is a 69-year-old female presenting with osteoporosis. Osteoporosis diagnosis was established a few years back, with no specific treatment initiated based on past reporting. A prior fracture from a fall over a steel peg occurred in 2001, causing severe chronic pain. She notes a distinct reduction in her height from 5'7 to now roughly 4'5 . Activities and movements impact her osteoporosis discomfort. A total hysterectomy was performed in 1999 due to familial cancer risk. Kidney stones have presented recurrently. Past smoking was stopped three decades ago and there is no alcohol consumption. Family history lacks osteoporosis or hip fracture documentation. First diagnosed in recently .Not seen specialist before Not Received treatment in the past . - Calcium supplementation (discontinued previously) - No routine prior medications specific to osteoporosis management noted No history of pathologic fracture but fxed foot in 1999 due to hard fall or ONJ. Has several servings of dietary calcium per day in the form of cheese, broccoli , ice cream . Not Takes Calcium supplement . Takes 400 IU of Vitamin D daily. The patient does not regularly consume cereal and has difficulty assessing her calcium intake due to challenges with small print on labels. She has experienced a decrease in visual acuity over time and requires glasses for clarity. The focus remains on ensuring adequate dietary calcium intake, aiming for an intake of approximately 1200 mg, potentially through Citrac[facility] Denies ever using PPI,+ anticoagulant, antiepileptic or glucocorticoid medication. 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 Not UTD on dental cleanings and sees dentist every 6 months. No planned upcoming dental work or extractions. ex-tabacco use no ETOH use DXA dated 10/20/24 :FINDINGS: LEFT FEMUR, NECK: Current: BMD 0.639 g/cm2, Z-score -2.0, T-score -2.9, osteoporosis. Baseline: BMD 0.603 g/cm2. LEFT FEMUR, TOTAL: Current: BMD 0.730 g/cm2, Z-score -1.7, T-score -2.2, osteopenia, 9.2% decrease from baseline (<5% change is not significant). Baseline: BMD 0.804 g/cm2. AP SPINE L1-L4: Current: BMD 0.825 g/cm2, Z-score -2.5, T-score -3.0, osteoporosis, 5.3% decrease from baseline (<5% change is not significant). Baseline: BMD 0.871 g/cm2. IDENTIFIED RISK FACTORS: Early menopause, secondary osteoporosis, osteoporosis, recurrent falls, height loss, bilateral oophorectomy, hysterectomy, kidney disease. HISTORY OF FRACTURE: None listed. MEDICATIONS: Multivitamin. MM/XR DEXA axial skeleton IMPRESSION: 1. DIAGNOSIS: Osteoporosis based on the lowest T-score value of -3.0 in the lumbar spine applying World Health Organization criteria. Labs: Secondary workup was negative The patient is a 69-year-old female presenting for osteoporosis management and evaluation of a rib contusion. The patient reports a recent fall resulting in a rib contusion, although no fractures were identified. She has experienced moderate pain at the site of the contusion, but it has been improving over time. The patient has a history of osteoporosis, with a bone density T-score of negative 3, indicating moderate to severe osteoporosis. Previous workup for secondary causes of osteoporosis was negative. The patient has not had any recent fractures related to osteoporosis. The patient has not had any history of heart attack or stroke in the past year, and she has not received radiation therapy for cancer. She previously experienced acid reflux while on Fosamax, which was discontinued. [facility] Medical History Family history of breast cancer in first degree relative Rib pain on left side History of kidney stones Dyslipidemia Osteoporosis Impaired fasting glucose Vaccine refused by patient Elevated brain natriuretic peptide (BNP) level Anemia Morbid obesity Iliotibial band syndrome Lumbosacral radiculopathy due to osteoarthritis of spine History of deep vein thrombophlebitis of lower extremity Positive ALVIN (antinuclear antibody) CKD (chronic kidney disease) stage 3, GFR 30-59 ml/min Osteoarthritis of right ankle and foot Postmenopausal Venous insufficiency of both lower extremities Diverticulitis Peripheral vascular complication of surgical procedure Peripheral vascular disease Hyperlipidemia DVT (deep venous thrombosis) Diastolic heart failure Paroxysmal A-fib BERE (obstructive sleep apnea) Surgical History History of lithotripsy History of cardiac cath Hx of vascular surgery H/O hysterectomy for benign disease Family History Father Emphysema, unspecified Mother No problems noted. Brother Atrial fibrillation Sister Atrial fibrillation Sister Breast cancer Social History Household Members: None Housing: House Do you presently have visiting nurse or other home services: No Alcohol intake: never Patient Tobacco Use Status: Never used Tobacco e-Cigarette/Vaping Use: Never Used service: No Current occupational status: retired and disabled Current occupation: rt handed Cognitive needs: No Hearing needs: No Vision needs: Yes Physical Exam Vital Signs: Last Vital Signs Pulse 54 07/21/25 10:01 BP 132/74 07/21/25 10:01 Pulse Ox 97 07/21/25 10:01 Oxygen Delivery Method Room Air 07/21/25 10:01 BMI result Body Mass Index 41.2 Assessment & Plan Assessment & Plan (1) Osteoporosis: Code(s): M81.0 - Age-related osteoporosis without current pathological fracture Category: Medical Qualifiers: Osteoporosis type: age-related Presence of current pathological fracture: without current pathological fracture Qualified Code(s): M81.0 - Age- related osteoporosis without current pathological fracture Plan: This is a 69-year-old white female with a history of osteoporosis with secondary workup negative. Plan is to considering very low bone density and high risk for fracture could consider use of anabolic therapy 1st like use of the Evenity or Tymlos or Forteo followed by anti resorptive therapy 1. Osteoporosis The patient has moderate to severe osteoporosis with a T-score of negative 3. The plan is to initiate treatment with Evenity for one year to build bone, fol lowed by Reclast to stabilize the bone density. Insurance approval is pending, and alternative options include Forteo or Tymlos if Evenity is not approved. I discussed with the patient the management options for osteoporosis, emphasizing the importance of building bone first with Evenity, followed by stabilization with Reclast. We reviewed the potential costs and insurance considerations, noting that Forteo or Tymlos could be alternatives if Evenity is not approved. The patient was informed about the process of obtaining insurance approval and the potential need for injections. We also discussed the rib contusion, confirming that no fractures were present and that the pain should continue to improve without specific intervention. The patient had an opportunity to ask questions regarding treatment plan. The patient expressed understanding and agreement with the above treatment plan. Patient was informed and verbally consented to the use of an ambient scribe for clinic note documentation during this visit. Medications: New romosozumab-aqqg (Evenity) 210 mg (2.34 mL) subcut QMONTH 28.08 mL 0RF 12 months Coding Level of Care Code Est Pt Level 3 (65636) Diagnoses Age-related osteoporosis without current pathological fracture M81.0 Osteoporosis type: age-related Presence of current pathological fracture: without current pathological fracture
[2025-07-21 10:01] VITALS: BP 132/74; PULSE 54; O2SAT 97; BMI 41.2
--- OUTSIDE RECORDS SUMMARY | 2025-07-21 11:07 | XMS_ITS | Patient Health Record ---
Author Organization [facility] Clarisa sandra Anthony Address [address] [facility] [place] [address] Care Team Providers Care Ship Propeller Finisher Name Role Phone Wil ALBERTS, Annalee Justice Primary Care Provider Un available Lakesha, Kevin Unavailable [phone] Schmid Isabelle Unavailable [phone] Allergies Allergen (clinical drug ingredient) Drug/Non Drug [...] Keflex 500 500 MG 1 capsule Orally aunshka ry 12 hrs; Duration: 10 day(s) 03/21/2021 [...] Osteoarthritis of midtarsal joint of left foot (3807256072082425 ) Osteoarthritis of midtarsal joint of left foot (M19.072) Active confirmed Problem Osteoarthritis of midtarsal joint of right foot (3114423295380462 ) Osteoarthritis of midtarsal joint of right foot (M19.071) Active confirmed Vital Signs Blood pressure diastolic 70 mm Hg 03/15/2025 Height 5 ft 5 in in 03/15/2025 Blood pressure systolic 130 mm Hg 03/15/2025 Weight 232 lbs 03/15/2025 BMI 38.6 kg/m2 03/15/2025 Procedures Procedure Date Ordered Date Performed Result Body Sit e 25501-GPGSBXA NAIL, 1-5 12/07/2024 N/A 02492-Iwquylyb Plate 12/07/2024 N/A 93096-WRJD SKIN LESIONS, 2 TO 4 12/07/2024 N/A Q9749-QACUXNDK DYSTROPHIC NAILS ANY # 12/07/2024 N/A 43031-VCPNYKT NAIL, 1-5 03/15/2025 N/A 43889-Rizfrmev Plate 03/15/2025 N/A 31388-LERW SKIN LESIONS, 2 TO 4 03/15/2025 N/A I7542-SENZBAGS DYSTROPHIC NAILS ANY # 03/15/2025 N/A Encounters Encounter Location Date Provider Diagnosis [facility] [place] [address] [place] [address] 12/07/2024 Kevin Crowder Atherosclerosis of artery of [...] right foot M19.071 and Ingrown nail L60.[address] [facility] [address] 03/15/2025 Kevin Crowder Atherosclerosis of artery of both lower extremities I70.203 ; Tinea unguium B35.1 ; Pain in right toe(s) M79.674 ; Pain in left toe(s) M79.675 ; 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 ; Osteoarthritis of midtarsal joint of right foot M19.071 and Ingrown nail L60.[address] [address] 10/11/2024 Isabelle Schmid [address] [address] 12/07/2024 Kevin Crowder [address] [address] 06/17/2025 Kevin Crowder Assessments Encounter Date Diagnosis [...] X ray : Foot, right 3V 03/21/2021 73611-FQVLRMV NAIL, 1-5 12/07/2024 72022-INRAGRP NAIL, 1-5 03/15/2025 20405-Iygndepq Plate 03/15/2025 02479-Slbfhwbb Plate 12/07/2024 10902-BRQP SKIN LESIONS, 2 TO 4 12/07/19 42368-IHAX SKIN LESIONS, 2 TO 4 03/15/20 25 Q9471-ZMCNIBHO DYSTROPHIC NAILS ANY # S2419-XIAKRPZW DYSTROPHIC NAILS ANY # X ray : Ankle, right 3V 03/21/2021 Next Appt Details Provider Name:Kevin Crowder , 08/12/2025 11:00:00 AM, [address] [place], [address], Provider Name:Kevin Crowder , 08/26/2025 12:00:00 PM, [address] [facility], [place], [address], Insurance Providers Payer Name Payer Address Payer Phone Subscriber Number Group Number Insured Name Patient Relationship to Insured Coverage Start Date Coverage End Date Medicare National [employer] [address] [place] [address] [id number] JoseDavida castano Self - patient is the insured 1 [employer] [facility] [address] [place] [address] [id number] Davida Downey Self - patient is the [...]
--- OUTSIDE RECORDS SUMMARY | 2025-07-21 11:07 | XMS_ITS | Clinical Summary ---
Author Organization [facility] Facility Address [address] [address] Care Team Providers Care Clinical Data Assistant Name Role Phone Dena Gore MD Primary Care Provider [phone] Allergies Active Allergy Reactions Criticality Noted Date [...] that she be seen at the [facility] but she should definitely be quarantined since onset of her symptoms Friday for 14 days. Patient works at [employer] and would like a note for work [...] of the hips bilaterally, referral to [facility] orthopedics for consultation question management. The [...] prior to testing. Until then, can try ovrl-nbk-yhxngxi antihistamine such as generic versions of Margy, [...] age to complete this topic Insurance Medicare [facility] Medicare [facility] Care Teams Clinical Data Assistant Relationship Specialty Start Date End Date Dena Gore MD [address] [place] [address] PCP - General Internal Medicine 03/13/22
== END 2025-07-21 10:45 | disposition home or self-care (01) ==
LOC: HO.ENCR 09:56
PROVIDERS: PCP Internal Medicine; Visit Provider Internal Medicine Endocrinology, Diabetes & Metabolism
DX: M81.0 Age-related osteoporosis without current pathological fracture (principal)
CPT/HCPCS: 99213

== ENCOUNTER → 2025-07-21 09:56 | Outpatient (BNVA) | payer MEDICARE, SELFPAY | PROVIDERS: PCP Internal Medicine; Visit Provider Internal Medicine Endocrinology, Diabetes & Metabolism | DX: M81.0 Age-related osteoporosis without current pathological fracture (principal) | CPT/HCPCS: 99212 ==

== ENCOUNTER 2025-08-17 10:47 | Outpatient (REF) | payer MEDICARE, SELFPAY ==
[2025-08-17 11:47] LABS: Prothrombin Time 56.3 SEC (10.9-12.4)
[2025-08-17 11:49] LABS: INTERNATIONAL NORM RATIO 4.9 (0.9-1.1)
== END 2025-08-17 10:48 | disposition home or self-care (01) ==
LOC: HO.LAB 10:47
PROVIDERS: PCP Internal Medicine; Visit Provider Internal Medicine Medical Oncology
DX: Z51.81 Encounter for therapeutic drug level monitoring (principal); Z79.01 Long term (current) use of anticoagulants
CPT/HCPCS: 36415; 85610; 99211; 99212

== ENCOUNTER 2025-08-17 10:47 | Outpatient (AMB) | payer MEDICARE, SELFPAY ==
--- OUTSIDE RECORDS SUMMARY | 2024-12-16 09:00 | XMS_ITS ---
Author Organization [facility] Address [address] [place] [address] Care Team Providers Care Community Health Promoter Name Role Phone Wil ALBERTS, Annalee Justice Primary Care Provider Un available Kevin Crowder Unavailable [phone] Isabelle Schmid [phone] REASON FOR VISIT sooner appt Encounters Encounter Location Date Provider Diagnosis [address] [address] 12/16/2024 Isabelle Schmid Plan Of Treatment Next Appt Details Provider Name:Kevin Crowder , 08/26/2025 12:00:00 PM, [address] [place] [address], [phone], Provider Name:Kevin Crowder , 09/09/2025 10:15:00 AM, [address] [place] [address], [phone], Provider Name:Kevin Crowder , 12/02/2025 12:15:00 PM, [address] [place] [address], [phone], Progress Notes * RENELUIS LoanB:1955 (69 yo F)Acc No.[id number]:12/16/2024 Progress Notes Patient: Davida SOL Provider: Piper Schmid DPM :1955 A ge:69 Y S ex:Female Date:12/16/2024 Address:[address] [place] [address] [id number] Pcp:Zachery Giordano Subjective: * Chief Complaints: * [...] 12/16/2024 Generated for Елена linda/Kallie/Premasmitting on: 0 08/17/2025 01:32 PM EDT
--- OUTSIDE RECORDS SUMMARY | 2025-06-17 09:30 | XMS_ITS ---
Author Organization [facility] Address [address] [place] [address] Care Team Providers Care College Dean Name Role Phone Wil ALBERTS, Annalee Justice Primary Care Provider Un available Kevin Crowder Unavailable [phone] Allergies Allergen (clinical drug ingredient) Drug/Non Drug [...] Active Encounters Encounter Location Date Provider Diagnosis [facility] [address] [place] [address] 06/17/2025 Kevin Crowder Plan Of Treatment Next Appt Details Provider Name:Kevin Crowder , 08/26/2025 12:00:00 PM, [address] [place], [address], Provider Name:Kevin Jeff Lakesha , 09/09/2025 10:15:00 AM, [address] [place] [address], [address], Provider Name:Kevin Crowder , 12/02/2025 12:15:00 PM, [address] [place] [address], [address], Progress Notes * Donald DOWNEYaDOB:1955 (69 yo F)Acc No.[id number]:06/17/2025 Progress Note Patient: Davida SOL Provider: Rebecca Crowder DPM :1955 A ge:69 Y S ex:Female Date:06/17/2025 Address:[address] [place], [place] [address] Pcp:Zachery Giordano Subjective: * Chief Complaints: * [...] DPM Date: 0 06/17/2025 Generated for Елена linda/Faxing/eTransmitting on: 0 08/17/2025 01:32 PM EDT
--- OUTSIDE RECORDS SUMMARY | 2025-08-12 07:00 | XMS_ITS ---
Author Organization [facility] Address [address] [place] [address] Care Team Providers Care Marine Fitter Name Role Phone Wil ALBERTS, Annalee Justice Primary Care Provider Un available Kevin Crowder Unavailable [phone] Allergies Allergen (clinical drug ingredient) Drug/Non Drug [...] Active Encounters Encounter Location Date Provider Diagnosis [facility] [address] [place] [address] 08/12/2025 Kevin Crowder Plan Of Treatment Next Appt Details Provider Name:Kevin Crowder , 08/26/2025 12:00:00 PM, [address] [place], [address], Provider Name:Kevin Jeff Lakesha , 09/09/2025 10:15:00 AM, [address] [place] [address], [address], Provider Name:Kevin Crowder , 12/02/2025 12:15:00 PM, [address] [place] [address], [address], Progress Notes * Donald DOWNEYaDOB:1955 (69 yo F)Acc No.[id number]:08/12/2025 Progress Note Patient: Davida SOL Provider: Rebecca Crowder DPM :1955 A ge:69 Y S ex:Female Date:08/12/2025 Address:[address] [place], [place] [id number] Pcp:Zachery Girodano Subjective: * Chief Complaints: * * Medical [...] 08/12/2025 Generated for Елена linda/Faxing/eTransmitting on: 0 08/17/2025 01:33 PM EDT
[2025-08-17 11:08] LABS: Prothrombin Time Whole Bld POC 60.8 sec (11.1-13.5); ~PT, ~INR - Anti Coag Clinic 5.1 (0.9-1.1)
--- NOTE | 2025-08-17 11:16 | MHC.OFFVISCO ---
Intake Intake Visit Reasons: Anticoagulation Allergies Sulfa (Sulfonamide Antibiotics) (SULFA(SULFONAMIDE ANTIBIOTICS)) Allergy (Unknown, Verified 08/17/25 11:02) RASH codeine Adverse Reaction (Verified 08/17/25 11:02) Vomiting fentanyl Adverse Reaction (Verified 08/17/25 11:02) vomiting hydromorphone (From Dilaudid) Adverse Reaction (Verified 08/17/25 11:02) vomiting oxycodone Adverse Reaction (Verified 08/17/25 11:02) Gastrointestinal Upset Medication List - Last Reconciled 08/17/25 by Falguni Marti RN amiodarone 200 mg PO DAILY ascorbate calcium (vitamin C) 500 mg PO DAILY bumetanide 1 mg (1/2 x 2 mg) PO DAILY cefuroxime axetil 250 mg PO BID 7 days cholecalciferol (vitamin D3) 10 mcg PO DAILY gabapentin 300 mg PO DAILY multivitamin 1 tab PO DAILY romosozumab-aqqg (Evenity) 210 mg (2.34 mL) subcut QMONTH 12 months tramadol 50 mg PO DAILY PRN warfarin See Protocol 2.5 mg orally X5 DAYS/ 5MG X 2 DAYS ( and HANSON); Nursing Note INR 5.1-?? out of therapeutic range of 2-3 pt sent to lab for stat inr lab draw- inr 4.9 by lab reported by tigist Medications and supplements reviewed Patient status: pt c.o fatigue, unsure why inr is elev Medications or supplements: no changes Diet: same Denies any signs and symptoms of bleeding or clotting or unusual bruising Bleeding, bruising, clotting discussed - aware risk of bleeding-avoid high risk activity Nutritional guidance given: eat greens to lower, no reds Dose: hold warfarin today and tomm F/U INR Date : fri08/19/25? Patient verbalizing understanding of instructions given. pt pcp office called with low inr/dosing and f/u appt- spoke to Thania at 1205 composed note pcp Anti-Coag Initial Assessment Social Hx Patient Tobacco Use Status: Never used Tobacco alcohol intake: never Coding Level of Care Code Est Patient Level 2 Diagnoses Current use of anticoagulant therapy Z79.01 Assessment & Plan Assessment & Plan (1) Current use of anticoagulant therapy: Code(s): Z79.01 - shelter (current) use of anticoagulants Category: Medical Orders: Orders Prothrombin Time INR Today Z79.01 - shelter (current) use of anticoagulants Medications: Discontinued cefuroxime axetil Discontinued Reason: Patient Completed Course 250 mg PO BID 7 days 14 tabs 0RF
--- OUTSIDE RECORDS SUMMARY | 2025-08-17 13:33 | XMS_ITS | Patient Health Record ---
Author Organization [facility] Clarisa sandra Anthony Address [address] [place] [address] Care Team Providers Care Shipwright Supervisor Name Role Phone Wil ALBERTS, Annalee Justice Primary Care Provider Un available LakeshaKevin hill Unavailable [phone] SchmidIsabelle morris Unavailable [phone] Allergies Allergen (clinical drug ingredient) Drug/Non Drug [...] 10 day(s) 03/21/2021 Not-Edd ing Warfarin Sodium 2.5 MG 1 tablet Orally O nce a day Active Amiodarone HCl 200 MG 1 tablet Orally On ce a day; Duration: 30 days Active Bumetanide 2 MG as directed Orally Active Social History Tobacco Use: Social History [...] atherosclerosis of arteries of lower limbs (disorder) (23231453126393459 ) Atherosclerosis of artery of both lower extremities (I70.203) Active confirmed Q7(A), Q8(2B), Q9(1B,2 C) Problem Osteoarthritis of midtarsal joint of left foot (9631165758816031) Osteoarthritis of midtarsal joint of left foot (M19.072) Active confirmed Problem Osteoarthritis of midtarsal joint of right foot (6009531071895881) Osteoarthritis of midtarsal joint of right foot (M19.071) Active confirmed Vital Signs Blood pressure diastolic 70 mm Hg 03/15/2025 Height 5 ft 5 in in 03/15/2025 Blood pressure systolic 130 mm Hg 03/15/2025 Weight 232 lbs 03/15/2025 BMI 38.6 kg/m2 03/15/2025 Procedures Procedure Date Ordered Date Performed Result Body Sit e 36649-VABRYDT NAIL, 1-5 12/07/2024 N/A 85943-Lyzxxbyl Plate 12/07/2024 N/A 51872-HYPE SKIN LESIONS, 2 TO 4 12/07/2024 N/A C6184-UELKMDDJ DYSTROPHIC NAILS ANY # 12/07/2024 N/A 02613-OHOFIUS NAIL, 1-5 03/15/2025 N/A 45445-Kvhemems Plate 03/15/2025 N/A 45108-QZOF SKIN LESIONS, 2 TO 4 03/15/2025 N/A W8982-PPNNPUSQ DYSTROPHIC NAILS ANY # 03/15/2025 N/A Encounters Encounter Location Date Provider Diagnosis [facility] [address] [place] [address] 12/07/2024 Kevin Crowder Atherosclerosis of artery of [...] right foot M19.071 and Ingrown nail L60.[address] [facility] [address] 03/15/2025 Kevin Crowder Atherosclerosis of artery of both lower extremities I70.203 ; Tinea unguium B35.1 ; Pain in right toe(s) M79.674 ; Pain in left toe(s) M79.675 ; 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 ; Osteoarthritis of midtarsal joint of right foot M19.071 and Ingrown nail L60.[address] [address] 10/11/2024 [facility] [address] 12/07/2024 Kevin Crowder [address] [address] 06/17/2025 [facility] [address] 08/08/2025 Kevin Crowder Assessments Encounter Date Diagnosis (ICD [...] X ray : Foot, right 3V 03/21/2021 25008-PCVEODT NAIL, 1-5 12/07/2024 15815-WUTKUMN NAIL, 1-5 03/15/2025 63562-Vrtvnhbi Plate 03/15/2025 54476-Twxtckgl Plate 12/07/2024 80035-JLSF SKIN LESIONS, 2 TO 4 12/07/19 76353-ENEO SKIN LESIONS, 2 TO 4 03/15/20 O1466-JEMNBFNL DYSTROPHIC NAILS ANY # G9807-JWAVRHMR DYSTROPHIC NAILS ANY # X ray : Ankle, right 3V 03/21/2021 Next Appt Details Provider Name:Kevin Crowder , 08/26/2025 12:00:00 PM, [address] [place] [address], [place], [address], Provider Name:Kevin Crowder , 09/09/2025 10:15:00 AM, [address] [place] [address], [address], Provider Name:Kevin Crowder , 12/02/2025 12:15:00 PM, [address] [place] [address], [address], Insurance Providers Payer Name Payer Address Payer Phone Subscriber Number Group Number Insured Name Patient Relationship to Insured Coverage Start Date Coverage End Date Medicare National Govt S[employer] [address] [place] [address] [id number] Davida Downey Self - patient is the insured Medex Blue [facility] [address] [place] [address] [id number] Nasreen Davida Self - patient is the insured [...]
--- OUTSIDE RECORDS SUMMARY | 2025-08-17 13:33 | XMS_ITS | Clinical Summary ---
Author Organization [facility] Address [address] [address] Care Team Providers Care Sole Leveler Name Role Phone Dena Gore MD Primary Care Provider [phone] Allergies Active Allergy Reactions Criticality Noted Date [...] that she be seen at the [facility] but she should definitely be quarantined since onset of her symptoms Friday for 14 days. Patient works at [employer] and would like a note for work [...] of the hips bilaterally, referral to [facility] orthopedics for consultation question management. The [...] prior to testing. Until then, can try eors-gic-inmtvlz antihistamine such as generic versions of Margy, [...] [facility] Medicare [facility] Care Teams Sole Leveler Relationship Specialty Start Date End Date Dena Gore MD [address] [place] [address] PCP - General Internal Medicine 03/13/22
== END 2025-08-17 12:09 | disposition home or self-care (01) ==
LOC: HO.ACS 10:47
PROVIDERS: PCP Internal Medicine; Visit Provider Internal Medicine Medical Oncology
DX: Z79.01 Long term (current) use of anticoagulants (principal)

== ENCOUNTER 2025-08-19 11:18 | Outpatient (AMB) | payer MEDICARE, SELFPAY ==
--- OUTSIDE RECORDS SUMMARY | 2024-12-16 09:00 | XMS_ITS ---
Author Organization [facility] Address [address] [place] [address] Care Team Providers Care Senior Administrative Support Name Role Phone Wil ALBERTS, Annalee Justice Primary Care Provider Un available Kevin Crowder Unavailable [phone] Isabelle Schmid [phone] REASON FOR VISIT sooner appt Encounters Encounter Location Date Provider Diagnosis [address] [address] 12/16/2024 Isabelle Schmid Plan Of Treatment Next Appt Details Provider Name:Kevin Crowder , 08/26/2025 12:00:00 PM, [address] [place] [address], [phone], Provider Name:Kevin Crowder , 09/09/2025 10:15:00 AM, [address] [place] [address], [phone], Provider Name:Kevin Crowder , 12/02/2025 12:15:00 PM, [address] [place] [address], [phone], Progress Notes * RENELUIS LoanB:1955 (69 yo F)Acc No.[id number]:12/16/2024 Progress Notes Patient: Davida SOL Provider: Piper Schmid DPM :1955 A ge:69 Y S ex:Female Date:12/16/2024 Address:[address] [place] [address] [id number] Pcp:Zachery Giordano Subjective: * Chief Complaints: * [...] 12/16/2024 Generated for Елена linda/Kallie/Premasmitting on: 0 08/19/2025 01:07 PM EDT
--- OUTSIDE RECORDS SUMMARY | 2025-06-17 09:30 | XMS_ITS ---
Author Organization [facility] Address [address] [place] [address] Care Team Providers Care Home Office Representative Name Role Phone Wil ALBERTS, Annalee Justice Primary Care Provider Un available Kevin Crowder Unavailable [phone] Allergies Allergen (clinical drug ingredient) Drug/Non Drug [...] Active Encounters Encounter Location Date Provider Diagnosis [facility] [address] [place] [address] 06/17/2025 Kevin Crowder Plan Of Treatment Next Appt Details Provider Name:Kevin Crowder , 08/26/2025 12:00:00 PM, [address] [place], [address], Provider Name:Kevin Jeff Lakesha , 09/09/2025 10:15:00 AM, [address] [place] [address], [address], Provider Name:Kevin Crowder , 12/02/2025 12:15:00 PM, [address] [place] [address], [address], Progress Notes * Donald DOWNEYaDOB:1955 (69 yo F)Acc No.[id number]:06/17/2025 Progress Note Patient: Davida SOL Provider: Rebecca Crowder DPM :1955 A ge:69 Y S ex:Female Date:06/17/2025 Address:[address] [place], [place] [address] Pcp:Zachery Giordano Subjective: * Chief Complaints: * [...] 06/17/2025 Generated for Елена linda/Faxing/eTransmitting on: 0 08/19/2025 01:07 PM EDT
--- OUTSIDE RECORDS SUMMARY | 2025-08-12 07:00 | XMS_ITS ---
Author Organization [facility] Address [address] [place] [address] Care Team Providers Care Continuous Vulcanizing Machine Operator Name Role Phone Wil ALBERTS, Annalee Justice Primary Care Provider Un available Kevin Crowder Unavailable [phone] Allergies Allergen (clinical drug ingredient) Drug/Non Drug [...] Active Encounters Encounter Location Date Provider Diagnosis [facility] [address] [place] [address] 08/12/2025 Kevin Crowder Plan Of Treatment Next Appt Details Provider Name:Kevin Crowder , 08/26/2025 12:00:00 PM, [address] [place], [address], Provider Name:Kevin Jeff Lakesha , 09/09/2025 10:15:00 AM, [address] [place] [address], [address], Provider Name:Kevin Crowder , 12/02/2025 12:15:00 PM, [address] [place] [address], [address], Progress Notes * Donald DOWNEYaDOB:1955 (69 yo F)Acc No.[id number]:08/12/2025 Progress Note Patient: Davida SOL Provider: Rebecca Crowder DPM :1955 A ge:69 Y S ex:Female Date:08/12/2025 Address:[address] [place], [place] [id number] Pcp:Zachery Giordano Subjective: * Chief Complaints: * [...] 08/12/2025 Generated for Елена linda/Faxing/eTransmitting on: 0 08/19/2025 01:08 PM EDT
[2025-08-19 11:27] LABS: Prothrombin Time Whole Bld POC 44.0 sec (11.1-13.5); ~PT, ~INR - Anti Coag Clinic 3.7 (0.9-1.1)
--- NOTE | 2025-08-19 11:32 | MHC.OFFVISCO ---
Intake Intake Visit Reasons: Anticoagulation Allergies Sulfa (Sulfonamide Antibiotics) (SULFA(SULFONAMIDE ANTIBIOTICS)) Allergy (Unknown, Verified 08/19/25 11:19) RASH codeine Adverse Reaction (Verified 08/19/25 11:19) Vomiting fentanyl Adverse Reaction (Verified 08/19/25 11:19) vomiting hydromorphone (From Dilaudid) Adverse Reaction (Verified 08/19/25 11:19) vomiting oxycodone Adverse Reaction (Verified 08/19/25 11:19) Gastrointestinal Upset Medication List - Last Reconciled 08/19/25 by Theresa Philip, RN amiodarone 200 mg PO DAILY ascorbate calcium (vitamin C) 500 mg PO DAILY bumetanide 1 mg (1/2 x 2 mg) PO DAILY cholecalciferol (vitamin D3) 10 mcg PO DAILY gabapentin 300 mg PO DAILY multivitamin 1 tab PO DAILY romosozumab-aqqg (Evenity) 210 mg (2.34 mL) subcut QMONTH 12 months tramadol 50 mg PO DAILY PRN warfarin See Protocol 2.5 mg orally X5 DAYS/ 5MG X 2 DAYS ( and ); Nursing Note INR: 3.7 out of therapeutic range of 2-3 Previous INR 08/17/25 was 4.9 and warfarin was held 2 days. Medications and supplements reviewed Patient status: feels well Medications or supplements: no changes Denies any signs and symptoms of bleeding or clotting or unusual bruising Bleeding, bruising, clotting discussed Nutritional guidance given: to have a serving of greens today and to avoid foods that raise the INR X2 days. Pt states she has been eating a lot of grapes lately. Dose: don't want INR to drop too low so will not hold today's dose of 2.5mg, then 2.5mg X 6 days and 5mg X 1 day (). This is a decrease of 2.5mg as opposed to 2.5mg X 5 days and 5mg X 2 days. F/U INR Date: 2 weeks?? Patient verbalizing understanding of instructions given. Anti-Coag Initial Assessment Social Hx Patient Tobacco Use Status: Never used Tobacco alcohol intake: never Coding Level of Care Code Est Patient Level 1 Diagnoses Current use of anticoagulant therapy Z79.01 Results AMB INR Fingerstick AMB INR Fingerstick 3.7 Last Edit by Theresa Philip RN on 08/19/25 11:30 interface delay Assessment & Plan Assessment & Plan (1) Current use of anticoagulant therapy: Code(s): Z79.01 - terminologist (current) use of anticoagulants Category: Medical
--- OUTSIDE RECORDS SUMMARY | 2025-08-19 13:08 | XMS_ITS | Patient Health Record ---
Author Organization [facility] Clarisa sandra Anthony Address [address] [facility] [place] [address] Care Team Providers Care Corrugator Operator Name Role Phone Wil ALBERTS, Annalee Justice Primary Care Provider Un available LakeshaKevin hill Unavailable [phone] SchmidIsabelle morris Unavailable [phone] Allergies Allergen (clinical drug ingredient) Drug/Non Drug [...] atherosclerosis of arteries of lower limbs (disorder) (72237453701010804 ) Atherosclerosis of artery of both lower extremities (I70.203) Active confirmed Q7(A), Q8(2B), Q9(1B,2 C) Problem Osteoarthritis of midtarsal joint of left foot (6779496785224485) Osteoarthritis of midtarsal joint of left foot (M19.072) Active confirmed Problem Osteoarthritis of midtarsal joint of right foot (0135645271894879) Osteoarthritis of midtarsal joint of right foot (M19.071) Active confirmed Vital Signs Blood pressure diastolic 70 mm Hg 03/15/2025 Height 5 ft 5 in in 03/15/2025 Blood pressure systolic 130 mm Hg 03/15/2025 Weight 232 lbs 03/15/2025 BMI 38.6 kg/m2 03/15/2025 Procedures Procedure Date Ordered Date Performed Result Body Sit e 75959-BSDJLCW NAIL, 1-5 12/07/2024 N/A 25207-Gibtyazi Plate 12/07/2024 N/A 70342-WUHX SKIN LESIONS, 2 TO 4 12/07/2024 N/A D5840-JRYALHYB DYSTROPHIC NAILS ANY # 12/07/2024 N/A 44523-MNZFNOH NAIL, 1-5 03/15/2025 N/A 07055-Eraxambe Plate 03/15/2025 N/A 33344-DENB SKIN LESIONS, 2 TO 4 03/15/2025 N/A I8924-YVXOQBUI DYSTROPHIC NAILS ANY # 03/15/2025 N/A Encounters Encounter Location Date Provider Diagnosis [facility] [address] [place] [address] 12/07/2024 Kevin Crowder Atherosclerosis of artery of [...] right foot M19.071 and Ingrown nail L60.[address] [facility] [address] 03/15/2025 Kevin Crowder Atherosclerosis of artery of both lower extremities I70.203 ; Tinea unguium B35.1 ; Pain in right toe(s) M79.674 ; Pain in left toe(s) M79.675 ; 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 ; Osteoarthritis of midtarsal joint of right foot M19.071 and Ingrown nail L60.[address] [address] 10/11/2024 [facility] [address] 12/07/2024 Kevin Crowder [address] [address] 06/17/2025 [facility] [address] 08/08/2025 Kevin Crowder Assessments Encounter Date Diagnosis [...] X ray : Foot, right 3V 03/21/2021 65260-QYDQUCT NAIL, 1-5 12/07/2024 55109-ZXTILGY NAIL, 1-5 03/15/2025 28668-Fasrwspw Plate 03/15/2025 45965-Srimplsr Plate 12/07/2024 85005-DXYM SKIN LESIONS, 2 TO 4 12/07/19 97060-HREY SKIN LESIONS, 2 TO 4 03/15/20 T1315-QTKPRKBD DYSTROPHIC NAILS ANY # T7114-VFYJTXYE DYSTROPHIC NAILS ANY # X ray : Ankle, right 3V 03/21/2021 Next Appt Details Provider Name:Kevin Crowder , 08/26/2025 12:00:00 PM, [address] [place] [address], [place], [address], Provider Name:Kevin Crowder , 09/09/2025 10:15:00 AM, [address] [place] [address], [address], Provider Name:Kevin Crowder , 12/02/2025 12:15:00 PM, [address] [place] [address], [address], Insurance Providers Payer Name Payer Address Payer Phone Subscriber Number Group Number Insured Name Patient Relationship to Insured Coverage Start Date Coverage End Date Medicare National Govt Svcs Inc [address] [place] [address] [id number] Davida Downey Self - patient is the insured Medex Blue [facility] [address] [place] [address] [id number] Nasreen Davida Self - patient is the [...]
--- OUTSIDE RECORDS SUMMARY | 2025-08-19 13:08 | XMS_ITS | Clinical Summary ---
Author Organization [facility] Address [address] [address] Care Team Providers Care Hearing Aid Repairer Name Role Phone Dena Gore MD Primary Care Provider [phone] Allergies Active Allergy Reactions Criticality Noted Date [...] require that she be seen at the [facility] but she should definitely be quarantined since onset of her symptoms Friday for 14 days. Patient works at [employer] and would like a note for work [...] disease of the hips bilaterally, referral to [facility] orthopedics for consultation question management. The [...] prior to testing. Until then, can try sznr-azg-kdfmcdw antihistamine such as generic versions of Margy, [...] age to complete this topic Insurance Medicare [facility] Medicare [facility] Care Teams Hearing Aid Repairer Relationship Specialty Start Date End Date Dena Gore MD [address] [place] [address] PCP - General Internal Medicine 03/13/22
== END 2025-08-19 11:50 | disposition home or self-care (01) ==
LOC: HO.ACS 11:18
PROVIDERS: PCP Internal Medicine; Visit Provider Internal Medicine Medical Oncology
DX: Z79.01 Long term (current) use of anticoagulants (principal)

== ENCOUNTER → 2025-08-19 11:18 | Outpatient (BNVA) | payer MEDICARE, SELFPAY | PROVIDERS: PCP Internal Medicine; Visit Provider Internal Medicine Medical Oncology | DX: Z51.81 Encounter for therapeutic drug level monitoring (principal); Z79.01 Long term (current) use of anticoagulants | CPT/HCPCS: 85610; 99211 ==

== ENCOUNTER 2025-08-22 13:24 | Outpatient (AMB) | payer MEDICARE, SELFPAY ==
--- OUTSIDE RECORDS SUMMARY | 2024-12-16 09:00 | XMS_ITS ---
Author Organization [facility] Address [address] [place] [address] Care Team Providers Care Mail Agent Name Role Phone Wil ALBERTS, Annalee Justice Primary Care Provider Un available Kevin Crowder Unavailable [phone] Isabelle Schmid [phone] REASON FOR VISIT sooner appt Encounters Encounter Location Date Provider Diagnosis [address] [address] 12/16/2024 Isabelle Schmid Plan Of Treatment Next Appt Details Provider Name:Kevin Crowder , 08/26/2025 12:00:00 PM, [address] [place] [address], [address], Provider Name:Kevin Crowder , 09/09/2025 10:15:00 AM, [address] [place] [address], [address], Provider Name:Kevin Crowder , 12/02/2025 12:15:00 PM, [address] [place] [address], [address], Progress Notes * RENELUIS LoanB:1955 (69 yo F)Acc No.[id number]:12/16/2024 Progress Notes Patient: Davida SOL Provider: Piper Schmid DPM :1955 A ge:69 Y S ex:Female Date:12/16/2024 Address:[address] [place] [address] [place] Pcp:Zachery Giordano Subjective: * Chief Complaints: * [...] 12/16/2024 Generated for Елена linda/Kallie/Premasmitting on: 0 08/22/2025 02:55 PM EDT
--- OUTSIDE RECORDS SUMMARY | 2025-06-17 09:30 | XMS_ITS ---
Author Organization [facility] Address [address] [place] [address] Care Team Providers Care Remelt Worker Name Role Phone Wil ALBERTS, Annalee Justice Primary Care Provider Un available Kevin Crowder Unavailable [phone] Allergies Allergen (clinical drug ingredient) Drug/Non Drug [...] Active Encounters Encounter Location Date Provider Diagnosis [facility] [address] [place] [address] 06/17/2025 Kevin Crowder Plan Of Treatment Next Appt Details Provider Name:Kevin Crowder , 08/26/2025 12:00:00 PM, [address] [place], [address], Provider Name:Kevin Jeff Lakesha , 09/09/2025 10:15:00 AM, [address] [place] [address], [address], Provider Name:Kevin Crowder , 12/02/2025 12:15:00 PM, [address] [place] [address], [address], Progress Notes * Donald DOWNEYaDOB:1955 (69 yo F)Acc No.[id number]:06/17/2025 Progress Note Patient: Davida SOL Provider: Rebecca Crowder DPM :1955 A ge:69 Y S ex:Female Date:06/17/2025 Address:[address] [place], [place] [address] Pcp:Zachery Giordano Subjective: * Chief Complaints: * [...] 06/17/2025 Generated for Елена linda/Faxing/eTransmitting on: 0 08/22/2025 02:55 PM EDT
--- OUTSIDE RECORDS SUMMARY | 2025-08-12 07:00 | XMS_ITS ---
Author Organization [facility] Address [address] [place] [address] Care Team Providers Care Process Steward Name Role Phone Wil ALBERTS, Annalee Justice Primary Care Provider Un available Kevin Crowder Unavailable [phone] Allergies Allergen (clinical drug ingredient) Drug/Non Drug [...] Active Encounters Encounter Location Date Provider Diagnosis [facility] [address] [place] [address] 08/12/2025 eKvin Crowder Plan Of Treatment Next Appt Details Provider Name:Kevin Crowder , 08/26/2025 12:00:00 PM, [address] [place], [address], Provider Name:Kevin Jeff Lakesha , 09/09/2025 10:15:00 AM, [address] [place] [address], [address], Provider Name:Kevin Crowder , 12/02/2025 12:15:00 PM, [address] [place] [address], [address], Progress Notes * Donald DOWNEYaDOB:1955 (69 yo F)Acc No.[id number]:08/12/2025 Progress Note Patient: Davida SOL Provider: Rebecca Crowder DPM :1955 A ge:69 Y S ex:Female Date:08/12/2025 Address:[address] [place], [place] [address] Pcp:Zachery Giordano Subjective: * Chief Complaints: * [...] Sign off status: Pending * Provider: Rebecca Crowedr DPM Date: 0 08/12/2025 Generated for Елена linda/Faxing/eTransmitting on: 0 08/22/2025 02:55 PM EDT
--- NOTE | 2025-08-22 13:27 | MHC.OFFVIS ---
Vital Signs 08/22/25 13:39 Height 5 ft 4.25 in Weight 240 lb 11.916 oz BMI 41.0 BP 126/72 Blood Pressure Location Lt brachial Position Sitting Pulse 73 Pulse Source Pulse Oximeter Pulse Oximetry (%) 94 Oxygen Delivery Method Room Air Intake Visit Reasons: Discuss osteoporosis medications Intake Note: Patient present today to discuss Osteoporosis medications and side effects Property Preservation Specialist Required: No Accompanied by: Friend- Rehana Allergies Sulfa (Sulfonamide Antibiotics) (SULFA(SULFONAMIDE ANTIBIOTICS)) Allergy (Unknown, Verified 08/22/25 13:31) RASH codeine Adverse Reaction (Verified 08/22/25 13:31) Vomiting fentanyl Adverse Reaction (Verified 08/22/25 13:31) vomiting hydromorphone (From Dilaudid) Adverse Reaction (Verified 08/22/25 13:31) vomiting oxycodone Adverse Reaction (Verified 08/22/25 13:31) Gastrointestinal Upset HPI Comments Details: 69 YO Female is seen in consultation at the request of PCP for Osteoporosis.The patient is a 69-year-old female presenting with osteoporosis. Osteoporosis diagnosis was established a few years back, with no specific treatment initiated based on past reporting. A prior fracture from a fall over a steel peg occurred in 2001, causing severe chronic pain. She notes a distinct reduction in her height from 5'7 to now roughly 4'5 . Activities and movements impact her osteoporosis discomfort. A total hysterectomy was performed in 1999 due to familial cancer risk. Kidney stones have presented recurrently. Past smoking was stopped three decades ago and there is no alcohol consumption. Family history lacks osteoporosis or hip fracture documentation. First diagnosed in recently .Not seen specialist before Not Received treatment in the past . - Calcium supplementation (discontinued previously) - No routine prior medications specific to osteoporosis management noted No history of pathologic fracture but fxed foot in 1999 due to hard fall or ONJ. Has several servings of dietary calcium per day in the form of cheese, broccoli , ice cream . Not Takes Calcium supplement . Takes 400 IU of Vitamin D daily. The patient does not regularly consume cereal and has difficulty assessing her calcium intake due to challenges with small print on labels. She has experienced a decrease in visual acuity over time and requires glasses for clarity. The focus remains on ensuring adequate dietary calcium intake, aiming for an intake of approximately 1200 mg, potentially through Citracal Denies ever using PPI,+ anticoagulant, antiepileptic or glucocorticoid medication. Not Does weight bearing exercise Fracture history: as above Height loss: Y [employer]ER history: Menarche at age 12 Menopause at age [age] hysterectomt Has history of Kidney stones: Denies family history of Osteoporosis or hip fracture. Not UTD on dental cleanings and sees dentist every 6 months. No planned upcoming dental work or extractions. ex-tabacco use no ETOH use DXA dated 10/20/24 :FINDINGS: LEFT FEMUR, NECK: Current: BMD 0.639 g/cm2, Z-score -2.0, T-score -2.9, osteoporosis. Baseline: BMD 0.603 g/cm2. LEFT FEMUR, TOTAL: Current: BMD 0.730 g/cm2, Z-score -1.7, T-score -2.2, osteopenia, 9.2% decrease from baseline (<5% change is not significant). Baseline: BMD 0.804 g/cm2. AP SPINE L1-L4: Current: BMD 0.825 g/cm2, Z-score -2.5, T-score -3.0, osteoporosis, 5.3% decrease from baseline (<5% change is not significant). Baseline: BMD 0.871 g/cm2. IDENTIFIED RISK FACTORS: Early menopause, secondary osteoporosis, osteoporosis, recurrent falls, height loss, bilateral oophorectomy, hysterectomy, kidney disease. HISTORY OF FRACTURE: None listed. MEDICATIONS: Multivitamin. MM/XR DEXA axial skeleton IMPRESSION: 1. DIAGNOSIS: Osteoporosis based on the lowest T-score value of -3.0 in the lumbar spine applying World Health Organization criteria. Labs: Secondary workup was negative The patient is a 69-year-old female presenting with osteoporosis management concerns. She has a history of low bone density with a T-score of -3.0, indicating moderate to severe osteoporosis. The patient has not experienced recent fractures but has had fractured toes in the past. The patient has a history of a stroke that occurred during her teenage years, which is not considered a recent event. She also reports a family history of stroke, with her mother having from a massive stroke. The patient has experienced three deep vein thromboses in her legs and a superficial clot in her left leg. She has been advised against using estrogen-containing medications due to this history. [facility] Medical History Family history of breast cancer in first degree relative Rib pain on left side History of kidney stones Dyslipidemia Osteoporosis Impaired fasting glucose Vaccine refused by patient Elevated brain natriuretic peptide (BNP) level Anemia Morbid obesity Iliotibial band syndrome Lumbosacral radiculopathy due to osteoarthritis of spine History of deep vein thrombophlebitis of lower extremity Positive ALVIN (antinuclear antibody) CKD (chronic kidney disease) stage 3, GFR 30-59 ml/min Osteoarthritis of right ankle and foot Postmenopausal Venous insufficiency of both lower extremities Diverticulitis Peripheral vascular complication of surgical procedure Peripheral vascular disease Hyperlipidemia DVT (deep venous thrombosis) Diastolic heart failure Paroxysmal A-fib BERE (obstructive sleep apnea) Surgical History History of lithotripsy History of cardiac cath Hx of vascular surgery H/O hysterectomy for benign disease Family History Father Emphysema, unspecified Mother No problems noted. Brother Atrial fibrillation Sister Atrial fibrillation Sister Breast cancer Social History Household Members: None Housing: House Do you presently have visiting nurse or other home services: No Alcohol intake: never Patient Tobacco Use Status: Never used Tobacco e-Cigarette/Vaping Use: Never Used service: No Current occupational status: retired and disabled Current occupation: rt handed Cognitive needs: No Hearing needs: No Vision needs: Yes Assessment & Plan Assessment & Plan (1) Osteoporosis: Code(s): M81.0 - Age-related osteoporosis without current pathological fracture Category: Medical Qualifiers: Osteoporosis type: age-related Presence of current pathological fracture: without current pathological fracture Qualified Code(s): M81.0 - Age-related osteoporosis without current pathological fracture Plan: This is a 69-year-old white female with a history of osteoporosis with secondary workup negative. Plan is to considering very low bone density and high risk for fracture could consider use of anabolic therapy 1st like use of the Evenity or Tymlos or Forteo followed by anti resorptive therapy. The patient is here today to discuss concerns regarding use of Evenity and other medications 1. Osteoporosis The patient has a T-score of -3.0, indicating moderate to severe osteoporosis. Various treatment options were discussed, including Evenity, Tymlos, and Forteo, with considerations for cost and potential side effects. The patient expressed concerns about the cardiovascular risks associated with Evenity, given her family history of stroke. Alternative treatments such as Tymlos and Forteo were considered, with a plan to explore insurance coverage and costs before making a decision. During the consultation, I discussed the patient's osteoporosis and the various treatment options available, including Evenity, Tymlos, and Forteo. We reviewed the potential cardiovascular risks associated with Evenity, especially considering the patient's family history of stroke. I advised the patient to consider her comfort level with the medications and to explore insurance coverage for Tymlos and Forteo. We agreed that she would contact the pharmacy to determine the costs and then inform us of her decision. I emphasized that there was no immediate urgency to start treatment, allowing her time to make an informed choice. - Review the information on osteoporosis medications and consider your comfort level with each option. - Contact your pharmacy to check the cost and insurance coverage for Tymlos and Forteo. - Inform the clinic of your decision regarding the medication choice. - The patient had an opportunity to ask questions regarding treatment plan. The patient expressed understanding and agreement with the above treatment plan. Patient was informed and verbally consented to the use of an ambient scribe for clinic note documentation during this visit. Coding Level of Care Code Est Pt Level 3 (95144) Diagnoses Age-related osteoporosis without current pathological fracture M81.0 Osteoporosis type: age-related Presence of current pathological fracture: without current pathological fracture
[2025-08-22 13:39] VITALS: BP 126/72; PULSE 73; O2SAT 94; BMI 41.0
--- OUTSIDE RECORDS SUMMARY | 2025-08-22 14:56 | XMS_ITS | Patient Health Record ---
Author Organization [facility] Clarisa sandra Anthony Address [address] [place] [address] Care Team Providers Care Virtual Office Assistant Name Role Phone Wil ALBERTS, Annalee Justice Primary Care Provider Un available LakeshaKevin hill Unavailable [phone] SchmidIsabelle morris Unavailable [phone] Allergies Allergen (clinical drug ingredient) Drug/Non Drug [...] atherosclerosis of arteries of lower limbs (disorder) (54003727067833148 ) Atherosclerosis of artery of both lower extremities (I70.203) Active confirmed Q7(A), Q8(2B), Q9(1B,2 C) Problem Osteoarthritis of midtarsal joint of left foot (6393825861077772) Osteoarthritis of midtarsal joint of left foot (M19.072) Active confirmed Problem Osteoarthritis of midtarsal joint of right foot (5071100673389143) Osteoarthritis of midtarsal joint of right foot (M19.071) Active confirmed Vital Signs Blood pressure diastolic 70 mm Hg 03/15/2025 Height 5 ft 5 in in 03/15/2025 Blood pressure systolic 130 mm Hg 03/15/2025 Weight 232 lbs 03/15/2025 BMI 38.6 kg/m2 03/15/2025 Procedures Procedure Date Ordered Date Performed Result Body Sit e 42525-MWEAOHE NAIL, 1-5 12/07/2024 N/A 94064-Dgdrzoxw Plate 12/07/2024 N/A 64428-YRTR SKIN LESIONS, 2 TO 4 12/07/2024 N/A G3001-EQQKERWK DYSTROPHIC NAILS ANY # 12/07/2024 N/A 52977-QKCCOWE NAIL, 1-5 03/15/2025 N/A 63748-Pghohmhh Plate 03/15/2025 N/A 57294-EURG SKIN LESIONS, 2 TO 4 03/15/2025 N/A B8472-RZKOVMHK DYSTROPHIC NAILS ANY # 03/15/2025 N/A Encounters Encounter Location Date Provider Diagnosis [facility] [address] [place] [address] 12/07/2024 Kevin Crowder Atherosclerosis of artery of [...] right foot M19.071 and Ingrown nail L60.[address] [facility] [address] 03/15/2025 Kevin Crowder Atherosclerosis of artery of both lower extremities I70.203 ; Tinea unguium B35.1 ; Pain in right toe(s) M79.674 ; Pain in left toe(s) M79.675 ; 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 ; Osteoarthritis of midtarsal joint of right foot M19.071 and Ingrown nail L60.[address] [address] 10/11/2024 [facility] [address] 12/07/2024 Kevin Crowder [address] [address] 06/17/2025 [facility] [address] 08/08/2025 Kevin Crowder Assessments Encounter Date Diagnosis [...] X ray : Foot, right 3V 03/21/2021 60686-WAFDRVB NAIL, 1-5 12/07/2024 98788-MBBOMDB NAIL, 1-5 03/15/2025 32682-Ngkalrec Plate 03/15/2025 30569-Ytruargv Plate 12/07/2024 37410-ZXHF SKIN LESIONS, 2 TO 4 12/07/19 74075-KIOC SKIN LESIONS, 2 TO 4 03/15/20 E1659-VVGOTGTM DYSTROPHIC NAILS ANY # A7853-IAZUMCZD DYSTROPHIC NAILS ANY # X ray : Ankle, right 3V 03/21/2021 Next Appt Details Provider Name:Kevin Crowder , 08/26/2025 12:00:00 PM, [address] [place] [address], [place], [address], Provider Name:Kevin Crowder , 09/09/2025 10:15:00 AM, [address] [place] [address], [phone], Provider Name:Kevin Crowder , 12/02/2025 12:15:00 PM, [address] [place] [address], [phone], Insurance Providers Payer Name Payer Address Payer Phone Subscriber Number Group Number Insured Name Patient Relationship to Insured Coverage Start Date Coverage End Date Medicare National [employer] [address] [place] [address] [id number] Davida Downey Self - patient is the insured [employer] [facility] [address] [place] [address] [id number] Nasreen Davida Self - patient is the [...]
== END 2025-08-22 14:14 | disposition home or self-care (01) ==
LOC: HO.ENCR 13:25
PROVIDERS: PCP Internal Medicine; Visit Provider Internal Medicine Endocrinology, Diabetes & Metabolism
DX: M81.0 Age-related osteoporosis without current pathological fracture (principal)
CPT/HCPCS: 99213

== ENCOUNTER → 2025-08-22 | Outpatient (BNVA) | payer MEDICARE, SELFPAY | PROVIDERS: PCP Internal Medicine; Visit Provider Internal Medicine Endocrinology, Diabetes & Metabolism | DX: M81.0 Age-related osteoporosis without current pathological fracture (principal) | CPT/HCPCS: 99212 ==

== ENCOUNTER 2025-08-24 14:20 | Outpatient (AMB) | payer MEDICARE, SELFPAY ==
--- OUTSIDE RECORDS SUMMARY | 2024-12-16 09:00 | XMS_ITS ---
Author Organization [facility] Address [address] [place] [address] Care Team Providers Care Pension Adviser Name Role Phone Wil ALBERTS, Annalee Justice Primary Care Provider Un available Kevin Crowder Unavailable [phone] Isabelle Schmid [phone] REASON FOR VISIT sooner appt Encounters Encounter Location Date Provider Diagnosis [address] [address] 12/16/2024 Isabelle Schmid Plan Of Treatment Next Appt Details Provider Name:Kevin Crowder , 08/26/2025 12:00:00 PM, [address] [place] [address], [address], Provider Name:Kevin Crowder , 09/09/2025 10:15:00 AM, [address] [place] [address], [phone], Provider Name:Kevin Crowder , 12/02/2025 12:15:00 PM, [address] [place] [address], [address], Progress Notes * RENEDonald SMITHIlaB:1955 (69 yo F)Acc No.[id number]:12/16/2024 Progress Notes Patient: Davida SOL Provider: Piper Schmid DPM :1955 A ge:69 Y S ex:Female Date:12/16/2024 Address:[address] [place] [address] [place] Pcp:Zachery Giordano Subjective: * Chief Complaints: * [...] 0 12/16/2024 Generated for Елена linda/Kallie/Premasmitting on: 03:31 PM EDT
--- OUTSIDE RECORDS SUMMARY | 2025-06-17 09:30 | XMS_ITS ---
Author Organization [facility] Address [address] [place] [address] Care Team Providers Care Senior Telecommunications Specialist Name Role Phone Wil ALBERTS, Annalee Justice Primary Care Provider Un available Kevin Crowder Unavailable [phone] Allergies Allergen (clinical drug ingredient) Drug/Non Drug [...] Date Provider Diagnosis [facility] [address] [place] [address] 06/17/2025 Kevin Crowder Plan Of Treatment Next Appt Details Provider Name:Kevin Crowder , 08/26/2025 12:00:00 PM, [address] [place], [address], Provider Name:Kevin Jeff Lakesha , 09/09/2025 10:15:00 AM, [address] [place] [address], [address], Provider Name:Kevin Crowder , 12/02/2025 12:15:00 PM, [address] [place] [address], [address], Progress Notes * Donald DOWNEYaDOB:1955 (69 yo F)Acc No.[id number]:06/17/2025 Progress Note Patient: Davida SOL Provider: Rebecca Crowder DPM :1955 A ge:69 Y S ex:Female Date:06/17/2025 Address:[address] [place], [place] [address] Pcp:Zachery Giodrano Subjective: * Chief Complaints: * * Medical [...] 0 06/17/2025 Generated for Елена linda/Faxing/eTransmitting on: 1 03:31 PM EDT
--- OUTSIDE RECORDS SUMMARY | 2025-08-12 07:00 | XMS_ITS ---
Author Organization [facility] Address [address] [place] [address] Care Team Providers Care Group Home Manager Name Role Phone Wil ALBERTS, Annalee Justice Primary Care Provider Un available Kevin Crowder Unavailable [phone] Allergies Allergen (clinical drug ingredient) Drug/Non Drug [...] Encounters Encounter Location Date Provider Diagnosis [facility] [address] [place] [address] 08/12/2025 Kevin Crowder Plan Of Treatment Next Appt Details Provider Name:Kevin Crowder , 08/26/2025 12:00:00 PM, [address] [place], [address], Provider Name:Kevin Jeff Lakesha , 09/09/2025 10:15:00 AM, [address] [place] [address], [address], Provider Name:Kevin Crowder , 12/02/2025 12:15:00 PM, [address] [place] [address], [address], Progress Notes * Donald DOWNEYaDOB:1955 (69 yo F)Acc No.[id number]:08/12/2025 Progress Note Patient: Davida SOL Provider: Rebecca Crowder DPM :1955 A ge:69 Y S ex:Female Date:08/12/2025 Address:[address] [place], [place] [address] Pcp:Zachery Giordano Subjective: * Chief Complaints: * [...] 0 08/12/2025 Generated for Елена linda/Faxing/eTransmitting on: 1 03:32 PM EDT
[2025-08-24 15:02] VITALS: BP 136/80; PULSE 52; RESP 16; TEMP 36.8; O2SAT 94; BMI 41.0
--- NOTE | 2025-08-24 15:02 | A.OFFPC_ITS ---
Vital Signs 08/24/25 15:02 Height 5 ft 4.25 in Weight 241 lb BMI 41.0 BP 136/80 Blood Pressure Location Lt brachial Position Sitting Respiration 16 Pulse 52 Pulse Source Pulse Oximeter Temp 98.2 F Temp Source Oral Pulse Oximetry (%) 94 Oxygen Delivery Method Room Air Intake Visit Reasons: med management/gabapentin Intake Note: Pt is here today to discuss medication gabapentin / needs a referral to a different neurologist Allergies Sulfa (Sulfonamide Antibiotics) (SULFA(SULFONAMIDE ANTIBIOTICS)) Allergy (Unknown, Verified 08/24/25 15:33) RASH codeine Adverse Reaction (Verified 08/24/25 15:33) Vomiting fentanyl Adverse Reaction (Verified 08/24/25 15:33) vomiting hydromorphone (From Dilaudid) Adverse Reaction (Verified 08/24/25 15:33) vomiting oxycodone Adverse Reaction (Verified 08/24/25 15:33) Gastrointestinal Upset Medication List - Last Reconciled 08/24/25 by Annalee De La Torre MD amiodarone 200 mg PO DAILY ascorbate calcium (vitamin C) 500 mg PO DAILY bumetanide 1 mg (1/2 x 2 mg) PO DAILY cholecalciferol (vitamin D3) 10 mcg PO DAILY gabapentin 300 mg PO DAILY multivitamin 1 tab PO DAILY romosozumab-aqqg (Evenity) 210 mg (2.34 mL) subcut QMONTH 12 months warfarin See Protocol 2.5 mg orally X5 DAYS/ 5MG X 2 DAYS (TH and HANSON); Tobacco use date assessed: 08/24/25 Fall risk assessment: 1 Fall in past year Last assessed Fall Risk: 08/24/25 Dental Screening Dental Screen Date: 08/24/25 Did you have a dental visit in the last 12 months?: Yes Did you have a dental problem in the last 6 months where you did not have access to dental care?: No Was dental information given to patient?: Patient has dentist HPI med management/gabapentin HPI Details 61-year-old lady here today complaining frequent need to move legs, especially worse at night, which interferes with her sleep. She initially was given gabapentin by another provider, at 300 mg at bedtime which has been helping. Patient does not have anemia. Has never been tried on any other medications except for gabapentin. [facility] Medical History Family history of breast cancer in first degree relative Rib pain on left side History of kidney stones Dyslipidemia Osteoporosis Impaired fasting glucose Vaccine refused by patient Elevated brain natriuretic peptide (BNP) level Anemia Morbid obesity Iliotibial band syndrome Lumbosacral radiculopathy due to osteoarthritis of spine History of deep vein thrombophlebitis of lower extremity Positive ALVIN (antinuclear antibody) CKD (chronic kidney disease) stage 3, GFR 30-59 ml/min Osteoarthritis of right ankle and foot Postmenopausal Venous insufficiency of both lower extremities Diverticulitis Peripheral vascular complication of surgical procedure Peripheral vascular disease Hyperlipidemia DVT (deep venous thrombosis) Diastolic heart failure Paroxysmal A-fib BERE (obstructive sleep apnea) Surgical History History of lithotripsy History of cardiac cath Hx of vascular surgery H/O hysterectomy for benign disease Family History Father Emphysema, unspecified Mother No problems noted. Brother Atrial fibrillation Sister Atrial fibrillation Sister Breast cancer Social History Household Members: None Housing: House Do you presently have visiting nurse or other home services: No Alcohol intake: never Patient Tobacco Use Status: Never used Tobacco e-Cigarette/Vaping Use: Never Used service: No Current occupational status: retired and disabled Current occupation: rt handed Cognitive needs: No Hearing needs: No Vision needs: Yes Questionnaire PHQ-9 Over the last 2 weeks, how often have you been bothered by any of the following problems? 1. Little interest or pleasure in doing things: not at all 2. Feeling down, depressed, or hopeless: not at all 3. Trouble falling or staying asleep, or sleeping too much: nearly every day 4. Feeling tired or having little energy: several days 5. Poor appetite or overeating: not at all 6. Feeling bad about yourself - or that you are a failure or have let yourself or your family down: not at all 7. Trouble concentrating on things, such as reading the newspaper or watching television: not at all 8. Moving or speaking so slowly that other people could have noticed. Or the opposite - being so fidgety or restless that you have been moving around a lot more than usual: not at all 9. Thoughts that you would be better off or of hurting yourself in some way: not at all Total score: 4 Depression Screening Interpretation: Negative Depression Screening Done: Yes Source: Developed by Drs. Tc Noonan, Janet Hinojosa, Isael Andrews and colleagues, with an educational tha from [employer]. Thrive Questionnaire Date Thrive assessed: 02/02/25 I am a: Patient What is your living situation today?: I have a steady place to live Within the past 12 months, did the food you bought not last and you didn't have the money to get more?: Sometimes True Within the past 12 months, did you worry whether your food would run out before you got money to buy more?: Sometimes True Do you have trouble paying for medicines?: No Do you have trouble getting transportation to medical appointments?: No Do you have trouble paying your heating and electricity bill?: No Do you have trouble taking care of your child, family member or friend?: No Do you have trouble with day-to-day activities such as bathing, preparing meals, shopping, managing finances, etc.?: No Are you currently unemployed and looking for a job?: No Are you interested in more education?: No Please select the resources that you would like help with: None Currently or been in a relationship where the following occur: No concerns reported THRIVE Score: 2 AUDIT C Alcohol Use Questionnaire (AUDIT-C) 2. How many drinks containing alcohol do you have on a typical day when you are drinking?: 1 or 2 3. How often do you have six or more drinks on one occasion?: Never Total Score: 0 KELLEY-7 AMB Questionnaire KELLEY-7 Date KELLEY - 7 assessed: 02/02/25 Feeling nervous, anxious, or on edge: 0 = Not at all Not being able to stop or control worryin = Not at all Worrying too much about different things: 0 = Not at all Trouble relaxin = Not at all Being so restless that it is hard to sit still: 0 = Not at all Becoming easily annoyed or irritable: 0 = Not at all Feeling afraid as if something awful might happen: 0 = Not at all Total KELLEY-7 score (0-4 normal; 5-9 mild; 10-14 moderate; 15-21 severe): 0 Source: Developed by Drs. Tc Noonan, Janet Hinojosa, Isael Andrews and colleagues, with an educational tha from [employer]. Review of Systems Const All systems reviewed & are unremarkable except as noted in HPI and below Physical exam (Primary Care) Vital Signs: Last Vital Signs Temp 98.2 F 08/24/25 15:02 Pulse 52 08/24/25 15:02 Resp 16 08/24/25 15:02 BP 136/80 08/24/25 15:02 Pulse Ox 94 08/24/25 15:02 Oxygen Delivery Method Room Air 08/24/25 15:02 BMI result Body Mass Index 41.0 Tobacco/Smoking Status: Tobacco use Status Tobacco use date assessed 08/24/25 08/24/25 15:08 Patient Tobacco Use Status Never used Tobacco 08/24/25 15:08 e-Cigarette/Vaping Use Never Used 08/24/25 15:08 PHQ-9: PHQ-9 Score PHQ-9: Total score 4 08/24/25 17:35 Depression Screening Interpretation: Negative Thrive Assessment: Date of Thrive Assessment Date Thrive assessed 02/02/25 08/24/25 15:08 Currently or been in a relationship where the following occur: No concerns reported Const Other: Alert oriented x3, no acute distress noted ambulatory normal gait HENMT Head: Yes normocephalic Face and sinus: Yes face symmetric Mouth: moist mucous membranes Neck Neck: Yes full ROM, Yes no lymphadenopathy and Yes supple Resp Effort & Inspection: normal respiratory effort and able to speak in complete sentences Auscultation: clear to auscultation bilaterally Cardio Other: S1-S2 present regular rate and rhythm Peripheral pulses: popliteal pulses present, posterior tibial pulses present and dorsalis pedis present GI Palpation (GI): Soft to palpation, nontender, no guarding and no masses Skin General skin exam: no rashes or lesions noted Neuro General: gait normal, tone normal, moves all extremities, Normal light touch and pain sensation and no focal motor deficits Extrem General: Yes full ROM, Yes no joint enlargement, Yes no clubbing, cyanosis or edema and Yes normal gait Coding Level of Care Code Est Pt Level 4 (94193) Diagnoses Restless legs syndrome G25.81 Assessment & Plan Assessment & Plan (1) Restless legs syndrome: Code(s): G25.81 - Restless legs syndrome Category: Medical Plan: Will try on ropinirole instead of gabapentin, will start at 1 mg per tablet to take 1 tablet at bedtime and may take an extra dose during the day. Discussed possible side effects of medication which may include drowsiness and dry mouth. Call if after 2-3 weeks no improvement of symptoms. Medications: New ropinirole 1 mg PO BID 60 tabs 0RF G25.81 - Restless legs syndrome
--- OUTSIDE RECORDS SUMMARY | 2025-08-24 15:32 | XMS_ITS | Patient Health Record ---
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 Project Engineer Name Role Phone Wil ALBERTS, Annalee Justice Primary Care Provider Un available LakeshaKevin hill Unavailable [phone] SchmidIsabelle morris Unavailable [phone] Allergies Allergen (clinical drug ingredient) Drug/Non Drug [...] atherosclerosis of arteries of lower limbs (disorder) (71278787219531895 ) Atherosclerosis of artery of both lower extremities (I70.203) Active confirmed Q7(A), Q8(2B), Q9(1B,2 C) Problem Osteoarthritis of midtarsal joint of left foot (9839682815038316) Osteoarthritis of midtarsal joint of left foot (M19.072) Active confirmed Problem Osteoarthritis of midtarsal joint of right foot (2323918096838532) Osteoarthritis of midtarsal joint of right foot (M19.071) Active confirmed Vital Signs Blood pressure diastolic 70 mm Hg 03/15/2025 Height 5 ft 5 in in 03/15/2025 Blood pressure systolic 130 mm Hg 03/15/2025 Weight 232 lbs 03/15/2025 BMI 38.6 kg/m2 03/15/2025 Procedures Procedure Date Ordered Date Performed Result Body Sit e 93805-GQJIWQT NAIL, 1-5 12/07/2024 N/A 95876-Wmitaxeh Plate 12/07/2024 N/A 95581-BIWJ SKIN LESIONS, 2 TO 4 12/07/2024 N/A V8229-MRSSWDYE DYSTROPHIC NAILS ANY # 12/07/2024 N/A 01577-XIMVDLB NAIL, 1-5 03/15/2025 N/A 86290-Ulpiccvm Plate 03/15/2025 N/A 60784-HRVB SKIN LESIONS, 2 TO 4 03/15/2025 N/A M3362-REZMTFRP DYSTROPHIC NAILS ANY # 03/15/2025 N/A Encounters Encounter Location Date Provider Diagnosis [facility] [place] [address] [place] [address] 12/07/2024 Kevin Crowder Atherosclerosis of artery of [...] right foot M19.071 and Ingrown nail L60.[address] [facility] [address] 03/15/2025 Kevin Crowder Atherosclerosis of artery of both lower extremities I70.203 ; Tinea unguium B35.1 ; Pain in right toe(s) M79.674 ; Pain in left toe(s) M79.675 ; 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 ; Osteoarthritis of midtarsal joint of right foot M19.071 and Ingrown nail L60.[address] [address] 10/11/2024 [facility] [address] 12/07/2024 Kevin Crowder [address] [address] 06/17/2025 [facility] [address] 08/08/2025 Kevin Crowder Assessments Encounter Date Diagnosis [...] X ray : Foot, right 3V 03/21/2021 82636-QQQBLVA NAIL, 1-5 12/07/2024 52577-TKMOERV NAIL, 1-5 03/15/2025 71547-Wpjhxloe Plate 03/15/2025 58379-Rmwbvkpx Plate 12/07/2024 10674-JBQE SKIN LESIONS, 2 TO 4 12/07/19 19859-KQJP SKIN LESIONS, 2 TO 4 03/15/20 U6608-AAEJYKND DYSTROPHIC NAILS ANY # Z3529-XMYGBRSV DYSTROPHIC NAILS ANY # X ray : Ankle, right 3V 03/21/2021 Next Appt Details Provider Name:Kevin Crowder , 08/26/2025 12:00:00 PM, [address] [place] [address], [place], [address], Provider Name:Kevin Crowder , 09/09/2025 10:15:00 AM, [address] [place] [address], [phone], Provider Name:Kevin Crowder , 12/02/2025 12:15:00 PM, [address] [place] [address], [phone], Insurance Providers Payer Name Payer Address Payer Phone Subscriber Number Group Number Insured Name Patient Relationship to Insured Coverage Start Date Coverage End Date Medicare National [employer]t [employer] [address] [place] [address] [id number] Davida Downey Self - patient is the insured [employer] [facility] [address] [place] [address] [id number] Nasreen Davida Self - patient is the [...]
== END 2025-08-24 15:49 | disposition home or self-care (01) ==
LOC: HO.HMCC 14:20
PROVIDERS: PCP Internal Medicine; Visit Provider Internal Medicine
DX: G25.81 Restless legs syndrome (principal)

== ENCOUNTER → 2025-08-24 14:20 | Outpatient (BNVA) | payer MEDICARE, SELFPAY | PROVIDERS: PCP Internal Medicine; Visit Provider Internal Medicine | DX: G25.81 Restless legs syndrome (principal) | CPT/HCPCS: 96127; 99212 ==

== ENCOUNTER 2025-08-29 14:10 | Outpatient (AMB) | payer MEDICARE, SELFPAY ==
--- OUTSIDE RECORDS SUMMARY | 2024-12-16 09:00 | XMS_ITS ---
Author Organization [facility] Address [address] [place] [address] Care Team Providers Care Family Reunification Specialist Name Role Phone Wil ALBERTS, Annalee Justice Primary Care Provider Un available Kevin Crowder Unavailable [phone] Isabelle Schmid [phone] REASON FOR VISIT sooner appt Encounters Encounter Location Date Provider Diagnosis [address] [address] 12/16/2024 Isabelle Schmid Plan Of Treatment Next Appt Details Provider Name:Kevin Crowder , 09/09/2025 10:15:00 AM, [address] [place] [address], [address], Provider Name:Kevin Crowder , 12/02/2025 12:15:00 PM, [address] [place] [address], [address], Progress Notes * Donald RUIZIlaB:1955 (69 yo F)Acc No.[id number]:12/16/2024 Progress Notes Patient: S Davida ANGEL Provider: Piper Schmid DPM :1955 A ge:69 Y S ex:Female Date:12/16/2024 Address:[address] [place], [place] [address] Pcp:Zachery Giordano Subjective: * Chief Complaints: * [...] 0 12/16/2024 Generated for Елена linda/Kallie/Juancarlos on: 04:43 PM EDT
--- OUTSIDE RECORDS SUMMARY | 2025-06-17 09:30 | XMS_ITS ---
Author Organization [facility] Address [address] [place] [address] Care Team Providers Care Safekeeping Clerk Name Role Phone Wil ALBERTS, Annalee Justice Primary Care Provider Un available Kevin Crowder Unavailable [phone] Allergies Allergen (clinical drug ingredient) Drug/Non Drug [...] Active Encounters Encounter Location Date Provider Diagnosis [facility] [address] [place] [address] 06/17/2025 Kevin Crowder Plan Of Treatment Next Appt Details Provider Name:Kevin Crowder , 09/09/2025 10:15:00 AM, [address] [place], [address], Provider Name:Kevin Jeff Lakesha , 12/02/2025 12:15:00 PM, [address] [facility], [place], [address], Progress Notes * Loan DOWNEYB:1955 (69 yo F)Acc No.[id number]:06/17/2025 Progress Note Patient: Davida SOL Provider: Rebecca Crowder DPM :1955 A ge:69 Y S ex:Female Date:06/17/2025 Address:[address] [place] [address] Pcp:Zachery Giordano Subjective: * Chief Complaints: * [...] 0 06/17/2025 Generated for Елена linda/Kallie/Kaushalitting on: 1 04:43 PM EDT
--- OUTSIDE RECORDS SUMMARY | 2025-08-12 07:00 | XMS_ITS ---
Author Organization [facility] Address [address] [place] [address] Care Team Providers Care Emergency Medicine Nurse Practitioner Name Role Phone Wil ALBERTS, Annalee Justice Primary Care Provider Un available Kevin Crowder Unavailable [phone] Allergies Allergen (clinical drug ingredient) Drug/Non Drug [...] Date Provider Diagnosis [facility] [address] [place] [address] 08/12/2025 Kevin Crowder Plan Of Treatment Next Appt Details Provider Name:Kevin Crowder , 09/09/2025 10:15:00 AM, [address] [place], [address], Provider Name:Kevin Jeff Lakesha , 12/02/2025 12:15:00 PM, [address] [facility], [place], [address], Progress Notes * Donald DOWNEYaDOB:1955 (69 yo F)Acc No.[id number]:08/12/2025 Progress Note Patient: Davida SOL Provider: Rebecca Crowder DPM :1955 A ge:69 Y S ex:Female Date:08/12/2025 Address:[address] [place], [place] [id number] Pcp:Zachery Giordano Subjective: * Chief Complaints: * [...] DPM Date: 0 08/12/2025 Generated for Елена linda/Kallie/Kaushalitting on: 1 04:43 PM EDT
--- OUTSIDE RECORDS SUMMARY | 2025-08-26 08:00 | XMS_ITS ---
Author Organization [facility] Clarisa Vangley Address [address] [facility] [place] [address] Care Team Providers Care Supervisor Fertilizer Name Role Phone Wil ALBERTS, Annalee Justice Primary Care Provider Un available Kevin Crowder Unavailable [phone] Allergies Allergen (clinical drug ingredient) Drug/Non Drug Allergy documented on EMR Reaction Allergy Type Onset Date Status codeine Codeine Unknown Drug Allergy Active Latex Latex Unknown Allergy Active Substance with sulfonamide structure and antibacterial mechanism of action (substance) Sulfa Antibiotics rash Drug Allergy Active REASON FOR VISIT Ingrown nail Medications Medication SIG (Take, Route, Frequency, Duration) Notes Start Date End Date Status Bumetanide 2 MG as directed Orally Active Gabapentin 300 MG 1 capsule Orally Onc e a day; Duration: 30 day(s) Not-Edd ing Warfarin Sodium 5 MG 1 tablet Orally Onc e a day; Duration: 30 days Active Spironolactone 25 MG 1 tablet Orally; Duration: 30 day(s) Not-Taking Keflex 500 500 MG 1 capsule Orally anushka ry 12 hrs; Duration: 10 day(s) 03/21/2021 Not-Edd ing rOPINIRole HCl 1 MG 1 tablet 1 to 3 hour s before bedtime Orally Once a day Active Warfarin Sodium 2.5 MG 1 tablet Orally O nce a day Active Amiodarone HCl 200 MG 1 tablet Orally On ce a day; Duration: 30 days Active Social [...] Points 0 Interpretation Negative Vital Signs Height 5ft 5in in 08/26/2025 Weight 241 lbs 08/26/2025 BMI 40.1 kg/m2 08/26/2025 Blood pressure systolic 127 mm Hg 08/26/20 25 Blood pressure diastolic 80 mm Hg 025 Procedures Procedure Date Ordered Date Performed Result Body Sit e 29469-KTC 08/26/2025 N/A Encounters Encounter Location Date Provider Diagnosis [facility] [address] [address] 08/26/2025 Kevin Crowder Ingrown nail L60.0 Assessments Encounter Date Diagnosis (ICD Code) Assessment Notes Treatment Notes Treatment Clinical Notes Section Notes 08/26/2025 Ingrown nail (ICD-10 - L60.0) Plan Of Treatment Pending Test Test Name Order Date 79955-LUP 08/26/2025 Next Appt Details Follow Up: 2-4 Weeks, Reason : Provider Name:Kevin Randee KabaLakesha , 09/09/2025 10:15:00 AM, [address] [place] [address], [phone], Provider Name:Kevindestiny Crowder , 12/02/2025 12:15:00 PM, [address] [place] [address], [phone], Procedure Notes * Category Sub-Category Detail Notes Matricectomy (OP NOTE) Consent The patie nt was brought to the examination room and placed on the table in a supine position. The pre/margie/postoperative course, risks, complications and alternatives were discussed, understood and accepted by the patient. No guarantees were given regarding the surgical outcome Procedure A digital prep with alcohol or betadine was performed. 3cc of 1 percent Xylocaine Plain local anesthetic was administered to the toe via digital block utilizing aseptic technique. A digital touriquet was applied. The affected toenail portion was undermined, incised and resected to the eponychium and matrix. It was noted to be significantly incurvated and hypertrophied. The nailbed and matrix were curetted and the nail groove, bed and matrix were cauterized with Phenol, 3 applications of 30 seconds each from a cotton tip applicator, no underling bone was identified. The surrounding skin was protected from the Phenol with Bacitracin ointment. The tourniquet was released and capillary fill time was intact to the digit. A sterile Bacitracin dressing was applied Disposition Disposition: The pat ient tolerated the procedure and anesthesia well and left in good condition, alert, oriented and stable in no acute distress. Local wound care instructions were discussed and dispensed. There were no complications and the prognosis is favorable, Recommended alternating/staggering Tylenol XS 2 tabs and Motrin 600mg q 6 hrs ea for discomfort, Rx narcotic postop pain meds were deferred, CIRCULATION: Pt was advised as to the risk of delayed or nonhealing due to circulation. Pt is to call the office with any questions, concerns, or complications Location Lateral nail border, TA Progress Notes * Donald DOWNEYaDOB:1955 (69 yo F)Acc No.[id number]:08/26/2025 Progress Note Patient: Davida SOL Provider: Rebecca Crowder DPM :1955 A ge:69 Y S ex:Female Date:08/26/2025 Address:[address] [place], [place] [id number] Pcp:Zachery Giordano Subjective: * Chief Complaints: * I ngrown nail * ROS: G eneral/Constitutional: Nausea d enies. [...] enies. C ardiovascular: Pacemaker d enies. M GIN CLERK d enies. W PW d enies. C [...] d enies. S cars d enies. C orns/calluses?admits. I ngrown nails a dmits. P ainful nails a dmits. O pen Sores d enies. R ashes d enies. N eurologic: Difficulty sleeping d enies. B rain disorder d enies. N umbness d enies. B alance trouble a dmits. C onfusion d enies. F ainting/blackouts d enies. T ingling d enies. T remors d enies. * Medical History: * Surgical History: h ysterectomy 02/2000cardiac catheterization 2020 * Hospitalization/Major Diagno stic Procedure: [facility] -AFib/ Kidney Failure 08/2020 * Family History: M other: , poor circulation, diagnosed with Unspecified essential hypertension, Unspecified cerebral artery occlusion with cerebral infarction. F ather: , diagnosed with Other malignant neoplasm of unspecified site. M aternal Grand Mother: poor circulation. P aternal Grand Father: diagnosed with Unspecified heart disease. M aternal aunt: diagnosed with Diabetic - NIDDM. M aternal uncle: diagnosed with Other malignant neoplasm of unspecified site. * Social History: T obacco Use: T obacco use other than smoking A re you an other tobacco user? N o Tobacco Control (Standard) T obacco use: N onsmoker A dditional Findings: Tobacco non-user C urrent nonsmoker D rugs/Alcohol: D rugs H ave you used drugs other than those for medical reasons in the past 12 months? N o M iscellaneous: C affeine: no. Children: yes, 3. Exercise: no. Marital status: . Occupation: Retired. D rug/Alcohol: A AUGUST-C (Standard) D id you have a drink containing alcohol in the past year? N o P oints 0 I nterpretation N egative * Medications: T akingrOPINIRole HCl 1 MG Tablet 1 tablet 1 to 3 hours before bedtime Orally Once a day Warfarin Sodium 2.5 MG Tablet 1 tablet Orally Once a day Amiodarone HCl 200 MG Tablet 1 tablet Orally Once a day Bumetanide 2 MG Tablet as directed Orally Warfarin Sodium 5 MG Tablet 1 tablet Orally Once a day Taking rOPINIRole HCl 1 MG Tablet 1 tablet 1 to 3 hours before bedtime Orally Once a day Taking Warfarin Sodium 2.5 MG Tablet 1 tablet Orally Once a day Taking Amiodarone HCl 200 MG Tablet 1 tablet Orally Once a day Taking Bumetanide 2 MG Tablet as directed Orally Taking Warfarin Sodium 5 MG Tablet 1 tablet Orally Once a day Not-Taking/PRNGabapentin 300 MG Capsule 1 capsule Orally Once a day Spironolactone 25 MG Tablet 1 tablet Orally Keflex 500 500 MG Capsule 1 capsule Orally every 12 hrs Medication List reviewed and reconciled with the patientNot-Taking/PRN Gabapentin 300 MG Capsule 1 capsule Orally Once a day Not-Taking/PRN Spironolactone 25 MG Tablet 1 tablet Orally Not-Taking/PRN Keflex 500 500 MG Capsule 1 capsule Orally every 12 hrs Medication List reviewed and reconciled with the patient * Allergies: S ulfa Antibiotics: rashCodeineLatexyes[Allergies Verified] Objective: * Vitals: H t: 5ft 5in, Wt:241, BMI:40.1, Shoe size: 10.5W, BP:127/80mm Hg, Ht-cm: 165.1 cm, Wt-k.32 kg. * Examination: I ngrown Nail: INSPECTION: R eveals incurvation, pain on palpation, groove hypertrophy , Lateral nail border, TA. Assessment: * Assessment: 1. I ngrown nail - L60.0 (Primary) S pecify :Lateral nail border, T A Plan: * Treatment: * Procedures: M atricectomy (OP NOTE): Location L ateral nail border, T A. Consent T he patient was brought to the examination room and placed on the table in a supine position. The pre/margie/postoperative course, risks, complications and alternatives were discussed, understood and accepted by the patient. No guarantees were given regarding the surgical outcome. Procedure A digital prep with alcohol or betadine was performed. 3cc of 1 percent X ylocaine Plain local anesthetic was administered to the toe via digital block utilizing aseptic technique. A digital touriquet was applied. The affected toenail portion was undermined, incised and resected to the eponychium and matrix. It was noted to be significantly incurvated and hypertrophied. The nailbed and matrix were curetted and the nail groove, bed and matrix were cauterized with Phenol, 3 applications of 30 seconds each from a cotton tip applicator, no underling bone was identified. The surrounding skin was protected from the Phenol with Bacitracin ointment. The tourniquet was released and capillary fill time was intact to the digit. A sterile Bacitracin dressing was applied . Disposition D isposition: The patient tolerated the procedure and anesthesia well and left in good condition, alert, oriented and stable in no acute distress. Local wound care instructions were discussed and dispensed. There were no complications and the prognosis is favorable, Recommended alternating/staggering Tylenol XS 2 tabs and Motrin 600mg q 6 hrs ea for discomfort, Rx narcotic postop pain meds were deferred, CIRCULATION: Pt was advised as to the risk of delayed or nonhealing due to circulation. Pt is to call the office with any questions, concerns, or complications. * Procedure Codes: 1 1750 REMOVAL OF NAIL BED, Modifiers: TA * Follow Up: 2 -4 Weeks * Images: * Sign off status: Completed true * Provider: Rebecca Crowder DPM Date: Generated for Елена linda/Kallie/Juancarlos on: 04:43 PM EDT History and Physical Notes * Examination Category Sub-Category Detail Notes Category Not es Ingrown Nail INSPECTION: Reveals incurvat ion, pain on palpation, groove hypertrophy , Lateral nail border, TA
[2025-08-29 15:16] VITALS: BP 142/70; PULSE 54; BMI 41.0
--- NOTE | 2025-08-29 15:16 | A.OFFVIS_ITS ---
Vital Signs 08/29/25 15:16 Height 5 ft 4 in Weight 238 lb 15.697 oz BMI 41.0 BP 142/70 H Blood Pressure Location Lt brachial Position Sitting Pulse 54 Pulse Source Monitor Intake Visit Reasons: 1 year f/u RS Cube Cutter Required: No Allergies Sulfa (Sulfonamide Antibiotics) (SULFA(SULFONAMIDE ANTIBIOTICS)) Allergy (Unknown, Verified 08/29/25 15:19) RASH codeine Adverse Reaction (Verified 08/29/25 15:19) Vomiting fentanyl Adverse Reaction (Verified 08/29/25 15:19) vomiting hydromorphone (From Dilaudid) Adverse Reaction (Verified 08/29/25 15:19) vomiting oxycodone Adverse Reaction (Verified 08/29/25 15:19) Gastrointestinal Upset Medication List - Last Reconciled 08/29/25 by Yolanda Valencia BRIM POUNCING MACHINE OPERATOR-C amiodarone 200 mg PO DAILY ascorbate calcium (vitamin C) 500 mg PO DAILY bumetanide 1 mg (1/2 x 2 mg) PO DAILY cholecalciferol (vitamin D3) 10 mcg PO DAILY multivitamin 1 tab PO DAILY ropinirole 1 mg PO BID warfarin See Protocol 2.5 mg orally X5 DAYS/ 5MG X 2 DAYS (TH and HANSON); HPI HPI 1 year f/u RS: Details: Davida is a 69-year-old female with past medical history of hyperlipidemia, CKD, peripheral vascular disease, sleep apnea with CPAP use, chronic diastolic heart failure, paroxysmal atrial fibrillation who presents for follow-up. Today she reports that she has not had any cardiac issues since her last visit in December. She denies having chest discomfort at rest or with activity. No shortness of breath, PND, orthopnea. She has chronic leg edema, left greater than right in his wearing compression stockings. She reports leg discomfort and swelling which has been worsening with time. No heart palpitations, lightheadedness, presyncope, syncope. She ambulates with a cane. Taking meds as directed. Attends the [facility]. No bleeding issues reported. [facility] Medical History Family history of breast cancer in first degree relative Rib pain on left side History of kidney stones Dyslipidemia Osteoporosis Impaired fasting glucose Vaccine refused by patient Elevated brain natriuretic peptide (BNP) level Anemia Morbid obesity Iliotibial band syndrome Lumbosacral radiculopathy due to osteoarthritis of spine History of deep vein thrombophlebitis of lower extremity Positive ALVIN (antinuclear antibody) CKD (chronic kidney disease) stage 3, GFR 30-59 ml/min Osteoarthritis of right ankle and foot Postmenopausal Venous insufficiency of both lower extremities Diverticulitis Peripheral vascular complication of surgical procedure Peripheral vascular disease Hyperlipidemia DVT (deep venous thrombosis) Diastolic heart failure Paroxysmal A-fib BERE (obstructive sleep apnea) Surgical History History of lithotripsy History of cardiac cath Hx of vascular surgery H/O hysterectomy for benign disease Family History Father Emphysema, unspecified Mother No problems noted. Brother Atrial fibrillation Sister Atrial fibrillation Sister Breast cancer Social History Household Members: None Housing: House Do you presently have visiting nurse or other home services: No Alcohol intake: never Patient Tobacco Use Status: Never used Tobacco e-Cigarette/Vaping Use: Never Used service: No Current occupational status: retired and disabled Current occupation: rt handed Cognitive needs: No Hearing needs: No Vision needs: Yes Review of Systems Const All systems reviewed & are unremarkable except as noted in HPI and below ENT Denies dizziness Card Denies chest pain, Denies chest pain at rest, Denies chest pain with activity, Denies rapid heart rate, Denies pedal edema, Denies edema, Reports leg edema, Denies lightheadedness, Denies palpitations, Denies dyspnea, Denies dyspnea on exertion and Denies orthopnea Resp Denies cough, Denies dyspnea and Denies dyspnea on exertion GI Denies hematochezia and Denies change in stool character Musc Denies abnormal gait, Denies limited range of motion, Denies muscle cramps, Denies muscle weakness, Denies numbness, Denies radiating pain into limb, Denies stiffness and Denies tingling Neuro Denies abnormal gait, Denies dizziness, Denies numbness and Denies tingling Endo Denies palpitations Physical Exam Vital Signs: Last Vital Signs Pulse 54 08/29/25 15:16 BP 142/70 H 10/06/25 15:16 BMI result Body Mass Index 41.0 Const General: cooperative, healthy appearing, comfortable and no acute distress Orientation/consciousness: patient oriented x3 Neck Neck: Yes normal visual inspection and Yes no JVD Resp Effort & Inspection: normal respiratory effort Auscultation: clear to auscultation bilaterally, no crackles, no rales, no rhonchi and no wheezes Cardio Rate: regular rate Rhythm: regular rhythm Heart sounds: S1 normal heart sound present, S2 normal heart sound present, no gallops, no murmurs and no rubs Neuro General: patient oriented x3 Extrem General: Yes normal to inspection, No no pedal edema and No calf tenderness Psych Appearance: grossly normal Mental Status: mental status grossly normal Speech and movement: Normal speech and movement present Office Procedures EKG Details: Today, sinus bradycardia, first-degree AV block, left axis deviation, LVH, rate 54, QTC 441 millisecond 35650-Hwijtqrexlhnnxrfy, Complete Assessment & Plan Assessment & Plan (1) Diastolic heart failure: Code(s): I50.30 - Unspecified diastolic (congestive) heart failure Category: Medical Plan: History of diastolic heart failure with last echocardiogram 09/21/2020 showing normal EF, impaired relaxation, normal valves. Condition stable with Bumex 1 mg daily. Labs 06/18/2025 showed potassium 3.8, creatinine 1.02. She is not fluid overloaded on examination. She is wearing compression stockings due to chronic leg edema. Signs and symptoms of heart failure reviewed with her. Low-salt diet reviewed. (2) Paroxysmal A-fib: Code(s): I48.0 - Paroxysmal atrial fibrillation Category: Medical Plan: History of paroxysmal atrial fibrillation treated with rhythm control. She is on amiodarone 200 mg daily. Labs 06/18/2025 showed hematocrit 42, AST 19, ALT 12. No recent TSH in our system. Chest CT done 06/18/2025 showed atelectasis. She is on Coumadin for anticoagulation, INR goal 2-3. Discussed risks of long- term amiodarone use including liver and pulmonary toxicity. Reviewed ablation and she is unsure at this time. Will review alternate med management with her primary heeler machine. Looking back in record she has been on amiodarone since 08/2020. (3) Venous insufficiency of both lower extremities: Comment: s/p endpovenous ablation therapy L GSV 201705/18/2021- status post left leg microphlebectomy Code(s): I87.2 - Venous insufficiency (chronic) (peripheral) Category: Medical Plan: Reports of bilateral leg discomfort and swelling, left greater than right. Will refer back to Dr. Smith at her request. (4) BERE (obstructive sleep apnea): Code(s): G47.33 - Obstructive sleep apnea (adult) (pediatric) Category: Medical Plan: Compliant with CPAP. (5) Current use of anticoagulant therapy: Code(s): Z79.01 - senior care (current) use of anticoagulants Category: Medical Plan: On Coumadin. Follows with [facility] antico[facility]. (6) On amiodarone therapy: Code(s): Z79.899 - Other rat exterminator (current) drug therapy Category: Medical Plan: As above Plan Time spent on chart review, documentation, interview and assessment Orders: Orders TSH reflex Free T4 Today I48.0 - Paroxysmal atrial fibrillation Referrals Vascular Surgery Referral I87.2 - Venous insufficiency (chronic) (peripheral) Coding Level of Care Code Est Pt Level 4 (75673) Complex EM visit Add On G2211 Diagnoses Diastolic heart failure I50.30 Paroxysmal A-fib I48.0 Venous insufficiency of both lower extremities I87.2 BERE (obstructive sleep apnea) G47.33 Current use of anticoagulant therapy Z79.01 On amiodarone therapy Z79.899 CPT Codes EKG - CPT: 76467-Xfkgsxmdxglfgudrt, Complete ([id number]) Time Spent (min) 32
--- OUTSIDE RECORDS SUMMARY | 2025-08-29 16:44 | XMS_ITS | Patient Health Record ---
Author Organization [facility] Clarisa Vangley Address [address] [facility] [place] [address] Care Team Providers Care Pull Through Hooker Name Role Phone Wil ALBERTS, Annalee Justcie Primary Care Provider Un available Lakesha, Kevin Unavailable [phone] Schmid Isabelle Unavailable [phone] Allergies Allergen (clinical drug ingredient) Drug/Non Drug [...] e a day; Duration: 30 days Active rOPINIRole HCl 1 MG 1 tablet 1 [...] hrs; Duration: 10 day(s) 03/21/2021 Not-Edd ing Social History Tobacco Use: Social History Observation [...] atherosclerosis of arteries of lower limbs (disorder) (29538216904602869 ) Atherosclerosis of artery of both lower extremities (I70.203) Active confirmed Q7(A), Q8(2B), Q9(1B,2 C) Problem Osteoarthritis of midtarsal joint of left foot (3733226670741721) Osteoarthritis of midtarsal joint of left foot (M19.072) Active confirmed Problem Osteoarthritis of midtarsal joint of right foot (0891594291481383) Osteoarthritis of midtarsal joint of right foot (M19.071) Active confirmed Vital Signs Blood pressure diastolic 80 mm Hg 08/26/2025 Height 5ft 5in in 08/26/2025 Blood pressure systolic 127 mm Hg 08/26/2025 Weight 241 lbs 08/26/2025 BMI 40.1 kg/m2 08/26/2025 Procedures Procedure Date Ordered Date Performed Result Body Sit e 83566-VFBMLHA NAIL, 1-5 12/07/2024 N/A 85508-Gpdvglkt Plate 12/07/2024 N/A 79138-IOWP SKIN LESIONS, 2 TO 4 12/07/2024 N/A B9264-PTDILDCQ DYSTROPHIC NAILS ANY # 12/07/2024 N/A 55177-GPOMJVN NAIL, 1-5 03/15/2025 N/A 72385-Wctkzncr Plate 03/15/2025 N/A 82562-XMUF SKIN LESIONS, 2 TO 4 03/15/2025 N/A Q2291-LWJPHDAP DYSTROPHIC NAILS ANY # 03/15/2025 N/A 36911-OAJ 08/26/2025 N/A Encounters Encounter Location Date Provider Diagnosis [facility] [place] [address] [place] [address] 12/07/2024 Kevin Crowder Atherosclerosis of artery of [...] right foot M19.071 and Ingrown nail L60.[address] [facility] [address] [address] 03/15/2025 Kevin Crowder Atherosclerosis of artery of both lower extremities I70.203 ; Tinea unguium B35.1 ; Pain in right toe(s) M79.674 ; Pain in left toe(s) M79.675 ; 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 ; Osteoarthritis of midtarsal joint of right foot M19.071 and Ingrown nail L60.[address] [facility] [address] 08/26/2025 Kevin Crowder Ingrown nail L60.[address] [address] 10/11/2024 Isabelle Schmid [address] [address] 12/07/2024 Kevin Crowder [address] [address] 06/17/2025 [facility] [address] 08/08/2025 Kevin Crowder Assessments Encounter Date Diagnosis (ICD Code) Assessment Notes Treatment Notes Treatment Clinical Notes Section Notes 03/15/2025 Tinea unguium (ICD-10 - B35.1) 03/15/2025 Atherosclerosis of artery of both lower extremities (ICD-10 - I70.203) Q7(A), Q8(2B), Q9(1B,2C) 08/26/2025 Ingrown nail (ICD-10 - L60.0) 12/07/2024 Tinea unguium (ICD-10 - B35.1) 12/07/2024 Atherosclerosis of artery of both lower extremities (ICD-10 - I70.203) Q7(A), Q8(2B), Q9(1B,2C) 12/07/2024 Pain in right toe(s) (ICD-10 - M79.674) 03/15/2025 Pain in right toe(s) (ICD-10 - M79.674) 03/15/2025 Pain in left toe(s) (ICD-10 - M79.675) 12/07/2024 Pain in left toe(s) (ICD-10 - M79.675) 12/07/2024 Pain in left foot (ICD-10 - M79.672) 03/15/2025 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 - M19.072) 03/15/2025 Osteoarthritis of midtarsal joint of right foot (ICD-10 - M19.071) 12/07/2024 Pain in left ankle and joints of left foot (ICD-10 - M25.572) 12/07/2024 Bursitis of left foot (ICD-10 - M77.52) 03/15/2025 Ingrown nail (ICD-10 - L60.0) 12/07/2024 Osteoarthritis of midtarsal joint of left [...] X ray : Foot, right 3V 03/21/2021 53564-UBUMRMT NAIL, 1-5 12/07/2024 03102-NBCREXQ NAIL, 1-5 03/15/2025 31389-Czyktzbt Plate 03/15/2025 45684-Letoumez Plate 12/07/2024 39290-GZY 08/26/2025 88251-OHBH SKIN LESIONS, 2 TO 4 03/15/20 86008-LTOC SKIN LESIONS, 2 TO 4 12/07/19 S4386-CAOQECBK DYSTROPHIC NAILS ANY # F8007-ZLUFXDXO DYSTROPHIC NAILS ANY # X ray : Ankle, right 3V 03/21/2021 Next Appt Details Provider Name:Kevin Jeff Lakesha , 09/09/2025 10:15:00 AM, [address] [place] [address], [phone], Provider Name:Kevin Mejíaier , 12/02/2025 12:15:00 PM, [address] [place] [address], [phone], Insurance Providers Payer Name Payer Address Payer Phone Subscriber Number Group Number Insured Name Patient Relationship to Insured Coverage Start Date Coverage End Date Medicare National Govt Svcs Inc [address] [place] [address] [id number] Nasreen Davida Self - patient is the insured [employer] [address] [place] [address] [id number] Nasreen Davida Self - patient is the [...]
--- OUTSIDE RECORDS SUMMARY | 2025-08-29 16:44 | XMS_ITS | Clinical Summary ---
Author Organization [facility] Facility Address [address] [address] Care Team Providers Care Liquefier Name Role Phone Dena Gore MD Primary Care Provider [phone] Allergies Active Allergy Reactions Criticality Noted Date [...] require that she be seen at the [facility] but she should definitely be quarantined since onset of her symptoms Friday for 14 days. Patient works at [employer] and would like a note for work [...] disease of the hips bilaterally, referral to [facility] orthopedics for consultation question management. The [...] prior to testing. Until then, can try ifqh-dlc-fbjheju antihistamine such as generic versions of Margy, [...] age to complete this topic Insurance Medicare [facility] Medicare [facility] Care Teams Liquefier Relationship Specialty Start Date End Date Dena Gore MD [address] [place] [address] PCP - General Internal Medicine 03/13/22
== END 2025-08-29 15:51 | disposition home or self-care (01) ==
LOC: HO.HCS 14:11
PROVIDERS: PCP Internal Medicine; Visit Provider Nurse Practitioner Family
DX: I50.30 Unspecified diastolic (congestive) heart failure (principal); I48.0 Paroxysmal atrial fibrillation; I87.2 Venous insufficiency (chronic) (peripheral); G47.33 Obstructive sleep apnea (adult) (pediatric); Z79.01 Long term (current) use of anticoagulants; Z79.899 Other long term (current) drug therapy
CPT/HCPCS: 93010; 99214; G2211

== ENCOUNTER → 2025-08-29 14:10 | Outpatient (BNVA) | payer MEDICARE, SELFPAY | PROVIDERS: PCP Internal Medicine; Visit Provider Nurse Practitioner Family | DX: I50.30 Unspecified diastolic (congestive) heart failure (principal); I48.0 Paroxysmal atrial fibrillation; I87.2 Venous insufficiency (chronic) (peripheral); G47.33 Obstructive sleep apnea (adult) (pediatric); Z79.01 Long term (current) use of anticoagulants; Z79.899 Other long term (current) drug therapy | CPT/HCPCS: 93005; 99212 ==

== ENCOUNTER 2025-09-02 13:13 | Outpatient (AMB) | payer MEDICARE, SELFPAY ==
--- NOTE | 2025-09-02 13:36 | MHC.OFFVISCO ---
Intake Intake Visit Reasons: Anticoagulation Allergies Sulfa (Sulfonamide Antibiotics) (SULFA(SULFONAMIDE ANTIBIOTICS)) Allergy (Unknown, Verified 09/02/25 13:30) RASH codeine Adverse Reaction (Verified 09/02/25 13:30) Vomiting fentanyl Adverse Reaction (Verified 09/02/25 13:30) vomiting hydromorphone (From Dilaudid) Adverse Reaction (Verified 09/02/25 13:30) vomiting oxycodone Adverse Reaction (Verified 09/02/25 13:30) Gastrointestinal Upset Medication List - Last Reconciled 09/02/25 by Falguni Marti RN amiodarone 200 mg PO DAILY ascorbate calcium (vitamin C) 500 mg PO DAILY bumetanide 1 mg (1/2 x 2 mg) PO DAILY cholecalciferol (vitamin D3) 10 mcg PO DAILY multivitamin 1 tab PO DAILY ropinirole 1 mg PO BID warfarin See Protocol 2.5 mg orally X5 DAYS/ 5MG X 2 DAYS ( and ); Nursing Note INR 3.1-? out of therapeutic range 2-3 Medications and supplements reviewed Patient status: pt with c.o rib pain due to strain Medications or supplements: ropinirole- will raise inr/delayed Diet: same Denies any signs and symptoms of bleeding or clotting or unusual bruising Bleeding, bruising, clotting discussed Nutritional guidance given: eat a green today Dose: reduce sl due to med change- 2.5mg x 6, 5mg x 1 F/U INR Date : 1 week?? Patient verbalizing understanding of instructions given. Anti-Coag Initial Assessment Social Hx Patient Tobacco Use Status: Never used Tobacco alcohol intake: never Coding Level of Care Code Est Patient Level 1 Diagnoses Current use of anticoagulant therapy Z79.01 Results AMB INR Fingerstick AMB INR Fingerstick 3.1 Last Edit by Falguni Marti RN on 09/02/25 13:39 interface delay Assessment & Plan Assessment & Plan (1) Current use of anticoagulant therapy: Code(s): Z79.01 - nursing home (current) use of anticoagulants Category: Medical
[2025-09-02 14:01] LABS: Prothrombin Time Whole Bld POC 37.6 sec (11.1-13.5); ~PT, ~INR - Anti Coag Clinic 3.1 (0.9-1.1)
== END 2025-09-02 14:04 | disposition home or self-care (01) ==
LOC: HO.ACS 13:13
PROVIDERS: PCP Internal Medicine; Visit Provider Internal Medicine Medical Oncology
DX: Z79.01 Long term (current) use of anticoagulants (principal)

== ENCOUNTER → 2025-09-02 13:13 | Outpatient (BNVA) | payer MEDICARE, SELFPAY | PROVIDERS: PCP Internal Medicine; Visit Provider Internal Medicine Medical Oncology | DX: Z51.81 Encounter for therapeutic drug level monitoring (principal); Z79.01 Long term (current) use of anticoagulants | CPT/HCPCS: 85610; 99211 ==

== ENCOUNTER 2025-09-09 13:51 | Outpatient (AMB) | payer MEDICARE, SELFPAY ==
--- OUTSIDE RECORDS SUMMARY | 2024-10-11 06:30 | XMS_ITS ---
Author Organization [facility] Clarisa Cruz Address [address] [facility] [place] [address] Care Team Providers Care Lunch Cook Name Role Phone Wil ALBERTS, Annalee Justice Primary Care Provider Un available Kevin Crowder Unavailable [phone] Isabelle Schmid Unavailable [phone] Allergies Allergen (clinical drug ingredient) Drug/Non Drug [...] No Encounters Encounter Location Date Provider Diagnosis [facility] [place] [address] [place] [address] 10/11/2024 Isabelle Schmid Plan Of Treatment Next Appt Details Provider Name:Kevin Crowder , 11/04/2025 11:15:00 AM, [address] [facility], [place], [address], Progress Notes * Loan DOWNEYB:1955 (69 yo F)Acc No.[id number]:10/11/2024 Progress Notes Patient: Davida SOL Provider: Piper Schmid DPM :1955 A ge:69 Y S ex:Female Date:10/11/2024 Address:[address] [place], [place] [phone] Pcp:Zachery Giordano Subjective: * Chief Complaints: * [...] enies. C ardiovascular: Pacemaker d enies. M MEAL COOKER d enies. W PW d enies. C [...] Date: 12/11/2023 Generated for Елена linda/Kallie/Juancarlos on: 04:16 PM EDT
--- OUTSIDE RECORDS SUMMARY | 2024-12-16 09:00 | XMS_ITS ---
Author Organization [facility] Address [address] [place] [address] Care Team Providers Care Makeup Artistry Instructor Name Role Phone Wil ALBERTS, Annalee Justice Primary Care Provider Un available Kevin Crowder Unavailable [phone] Isabelle Schmid [phone] REASON FOR VISIT sooner appt Encounters Encounter Location Date Provider Diagnosis [facility] [address] [place] [address] 12/16/2024 Isabelle Schmid Plan Of Treatment Next Appt Details Provider Name:Kevin Crowder , 11/04/2025 11:15:00 AM, [address] [place], [address], Progress Notes * Donald RUIZaDOB:1955 (69 yo F)Acc No.[id number]:12/16/2024 Progress Notes Patient: Davida SOL Provider: Piper Schmid DPM :1955 A ge:69 Y S ex:Female Date:12/16/2024 Address:[address] [place] [address] Pcp:Zachery Giordano Subjective: * Chief Complaints: * [...] 0 12/16/2024 Generated for Елена Suazo/Juancarlos on: 04:16 PM EDT
--- OUTSIDE RECORDS SUMMARY | 2025-06-17 09:30 | XMS_ITS ---
Author Organization [facility] Address [address] [place] [address] Care Team Providers Care Sales Service Rep Name Role Phone Wil ALBERTS, Annalee Justice Primary Care Provider Un available Kevin Crowder Unavailable [phone] Allergies Allergen (clinical drug ingredient) Drug/Non Drug [...] Active Encounters Encounter Location Date Provider Diagnosis [facility] [address] [place] [address] 06/17/2025 Kevin Crowder Plan Of Treatment Next Appt Details Provider Name:Kevin Crowder , 11/04/2025 11:15:00 AM, [address] [place], [address], Progress Notes * Donald DOWNEYaDOB:1955 (69 yo F)Acc No.[id number]:06/17/2025 Progress Note Patient: Davida SOL Provider: Rebecca Crowder DPM :1955 A ge:69 Y S ex:Female Date:06/17/2025 Address:[address] [place] [address] Pcp:Zachery Giordano Subjective: * Chief Complaints: * [...] 0 06/17/2025 Generated for Елена linda/Kallie/Juancarlos on: 04:16 PM EDT
--- OUTSIDE RECORDS SUMMARY | 2025-08-12 07:00 | XMS_ITS ---
Author Organization [facility] Address [address] [place] [address] Care Team Providers Care Lathe Turner Name Role Phone Wil ALBERTS, Annalee Justice Primary Care Provider Un available Kevin Crowder Unavailable [phone] Allergies Allergen (clinical drug ingredient) Drug/Non Drug [...] Active Encounters Encounter Location Date Provider Diagnosis [facility] [address] [place] [address] 08/12/2025 Kevin Crowder Plan Of Treatment Next Appt Details Provider Name:Kevin Crowder , 11/04/2025 11:15:00 AM, [address] [place], [address], Progress Notes * Donald DOWNEYaDOB:1955 (69 yo F)Acc No.[id number]:08/12/2025 Progress Note Patient: Davida SOL Provider: Rebecca Crowder DPM :1955 A ge:69 Y S ex:Female Date:08/12/2025 Address:[address] [place] [address] Pcp:Zachery Giordano Subjective: * Chief Complaints: * [...] 0 08/12/2025 Generated for Елена linda/Kallie/Juancarlos on: 04:17 PM EDT
--- OUTSIDE RECORDS SUMMARY | 2025-09-09 06:15 | XMS_ITS ---
Author Organization [facility] Clarisa Vangley Address [address] [facility] [place] [address] Care Team Providers Care Tower Supervisor Name Role Phone Wil ALBERTS, Annalee Justice Primary Care Provider Un available Kevin Crwoder Unavailable [phone] Allergies Allergen (clinical drug ingredient) Drug/Non Drug Allergy documented on EMR Reaction Allergy Type Onset Date Status codeine Codeine Unknown Drug Allergy Active Latex Latex Unknown Allergy Active Substance with sulfonamide structure and antibacterial mechanism of action (substance) Sulfa Antibiotics rash Drug Allergy Active REASON FOR VISIT Open Sore - Toe Medications Medication SIG (Take, Route, Frequency, Duration) Notes Start Date End Date Status Keflex 500 500 MG 1 capsule Orally anushka ry 12 hrs; Duration: 10 day(s) 03/21/2021 Not-Edd ing Spironolactone 25 MG 1 tablet Orally; Duration: 30 day(s) Not-Taking Gabapentin 300 MG 1 capsule Orally Onc e a day; Duration: 30 day(s) Not-Edd ing Warfarin Sodium 5 MG 1 tablet Orally Onc e a day; Duration: 30 days Active Bumetanide 2 MG as directed Orally Active Amiodarone HCl 200 MG 1 tablet Orally On ce a day; Duration: 30 days Active Warfarin Sodium 2.5 MG 1 tablet Orally O nce a day Active rOPINIRole HCl 1 MG 1 tablet 1 to 3 hour s before bedtime Orally Once a day Active Social History Tobacco Use: Social History [...] Negative Vital Signs Height 5ft 5in in 09/09/2025 Weight 241 lbs 09/09/2025 BMI 40.1 kg/m2 09/09/2025 Blood pressure systolic 125 mm Hg 09/09/20 25 Blood pressure diastolic 75 mm Hg 025 Procedures Procedure Date Ordered Date Performed Result Body Sit e 38526-BNUKWAT SKIN/TISSUE 09/09/2025 N/A Encounters Encounter Location Date Provider Diagnosis [facility] [address] [address] 09/09/2025 Kevin Crowder Skin ulcer of toe of left foot with fat layer exposed L97.522 Assessments Encounter Date Diagnosis (ICD Code) Assessment Notes Treatment Notes Treatment Clinical Notes Section Notes 09/09/2025 Skin ulcer of toe of left foot with fat layer exposed (ICD-10 - L97.522) Patient Educated with: WOUND CARE INSTRUCTIONS.p df (WOUND CARE INSTRUCTIONS.p df) Plan Of Treatment Treatment Notes Assessment Notes Skin ulcer of toe of left fo ot with fat layer exposed Patient Educated with: WOUND CARE INSTRUCTIONS.pdf (WOUND CARE INSTRUCTIONS.pdf) Pending Test Test Name Order Date 75075-QESMLOB SKIN/TISSUE 09/09/2025 Next Appt Details Follow Up: prn, Reason: Provider Name:Kevin Crowder , 11/04/2025 11:15:00 AM, [address] [place] [address], [phone], Procedure Notes * Category Sub-Category Detail Notes Debride skin and subQ Open wound Physician of record performed open wound selective debridement of devitalized necrotic/nonviable soft tissue, fibrin, exudate, epidermis, dermis, thru skin and subcutaneous fat tissue, first 20 sq cm or less, using sharp dissection with sterile 15 blade, and/or tissue nippers. ANESTHESIA- was accomplished TOPICALLY with Lidocaine Hydrochloride Jelly 2 percent, Sterile antibiotic dressing applied. Hemostasis was controlled through direct pressure. Post debridement measurements: 12mm x 6mm x 3mm. Character of the wound post debriement is stable (21086) Progress Notes * SENECALLoanB:1955 (69 yo F)Acc No.[id number]:09/09/2025 Progress Notes Patient: Davida SOL Provider: Rebecca Crowder DPM :1955 A ge:69 Y S ex:Female Date:09/09/2025 Address:[address] [place] [address] Pcp:Zachery Giordano Subjective: * Chief Complaints: * O pen Sore - Toe * HPI: S kin problems: Location: L eft, 1st, Toe(s). Treatments: T opical abx, soaks. * ROS: G eneral/Constitutional: Nausea d enies. [...] enies. C ardiovascular: Pacemaker d enies. M MACHINE CASTINGS PLASTERER d enies. W PW d enies. C [...] aunt: diagnosed with Diabetic - NIDDM. M atelola uncle: diagnosed with Other malignant neoplasm of [...] 5ft 5in, Wt:241, BMI:40.1, Shoe size: 10.5W, BP:125/75mm Hg, Ht-cm: 165.1 cm, Wt-k.32 kg. * Examination: D ermatologic: ULCER: LOCATION, Dorsal, TA, SIZE, 10mm X 5mm X 2-3mm, BASE, fibro-granular, RIM, hyperkeratotic, UNDERMINING, mild, TRACKING, Sub Q with Fat layer exposed, DRAINAGE, serosanguineous, moderate, NECROTIC TISSUE, loosely-adherent, yellow slough, MALODOR, absent, CALOR, trace, ERYTHEMA, trace. Assessment: * Assessment: 1. S kin ulcer of toe of left foot with fat layer exposed - L97.522 (Primary) Plan: * Treatment: * Procedures: D ebride skin and subQ: Open wound Leland luis of record performed open wound selective debridement of devitalized necrotic/nonviable soft tissue, fibrin, exudate, epidermis, dermis, thru skin and subcutaneous fat tissue, first 20 sq cm or less, using sharp dissection with sterile 15 blade, and/or tissue nippers. ANESTHESIA- was accomplished TOPICALLY with Lidocaine Hydrochloride Jelly 2 percent, Sterile antibiotic dressing applied. Hemostasis was controlled through direct pressure. Post debridement measurements: 12mm x 6mm x 3mm. Character of the wound post debriement is stable (09467). * Procedure Codes: 1 1042 DEBRIDE SKIN/TISSUE * Preventive Medicine: Counseling: U lcer: A detailed plan of care was reviewed with the patient. We emphasized the fact that the patient takes on an active participating role in the treatment process and emphasized to them that they are an included, valued, and important member of the wound healing team in order to reach an expedient successful outcome. The patient agreed to follow their medically recommended diet while increasing their protein intake if safely able to do so, maintain proper bodily hydration, abide by weight-bearing restrictions at all times, quit all current smoking habits if any, and diligently follow any/all dressing change instructions. It was clearly made known to the patient that if they fail to do their part, they will likely extend their course of treatment as well as possibly increase their risk of adverse events including amputation. The patient was instructed on importance of proper wound care consisting of pressure reduction, and proper maintenance of a moist wound environment. The patient is to cleanse the wound with warm soapy water/peroxide/saline, or betadine BID based on product availability. The patient is to apply ( NEOSPORIN, POLYSPORIN, or TRIPLE OINTMENT ) Antibiotic to the wound and cover with a DSD as directed. The patient was instructed to change dressings according to orders, or PRN saturation, leaks. The patient was instructed to monitor and report any signs or symptoms of infection or any untoward reactions. Precautions Taken: Offloading/Pressure reduction via rest/ limited activity to essential to daily life only, cane/ crutches/ walker/ knee scooter/ wheelchair, shoe modification, accommodative padding, sharp debridement, and take/apply medication as directed. THE SHORT TERM GOALS of wound care include, prevent hospitalization, debridement to remove devitalized tissue, minimize risk for soft tissue or bone infection, initiate and promote the wound healing process, and prevent further complication such as loss of limb or life were discussed/reviewed. [facility] GOALS of wound care include, complete wound closure if possible, facilitate patient comfort, prevent recurrence, and return the patient to their pre-ulcerative state of activity and lifestyle if possible, Debridement frequency as indicated, The patient is to cont the local wound care as directed till completely healed. * Follow Up: p rn * Images: * Sign off status: Completed true * Provider: Rebecca Crowder DPM Date: Generated for Елена linda/Kallie/Juancalros on: 04:16 PM EDT History and Physical Notes * HPI (History of Present Illness) Category Sub-Category Detail Notes Category Not es Skin problems Location: Left, 1st, Toe(s) Treatments: Topical abx, soaks Examination Category Sub-Category Detail Notes Category Not es Dermatologic ULCER: LOCATION, Dorsal , TA, SIZE, 10mm X 5mm X 2-3mm, BASE, fibro-granular, RIM, hyperkeratotic, UNDERMINING, mild, TRACKING, Sub Q with Fat layer exposed, DRAINAGE, serosanguineous, moderate, NECROTIC TISSUE, loosely-adherent, yellow slough, MALODOR, absent, CALOR, trace, ERYTHEMA, trace
[2025-09-09 14:14] LABS: Prothrombin Time Whole Bld POC 25.4 sec (11.1-13.5); ~PT, ~INR - Anti Coag Clinic 2.1 (0.9-1.1)
--- NOTE | 2025-09-09 14:26 | MHC.OFFVISCO ---
Intake Intake Visit Reasons: Anticoagulation Allergies Sulfa (Sulfonamide Antibiotics) (SULFA(SULFONAMIDE ANTIBIOTICS)) Allergy (Unknown, Verified 09/09/25 14:05) RASH codeine Adverse Reaction (Verified 09/09/25 14:05) Vomiting fentanyl Adverse Reaction (Verified 09/09/25 14:05) vomiting hydromorphone (From Dilaudid) Adverse Reaction (Verified 09/09/25 14:05) vomiting oxycodone Adverse Reaction (Verified 09/09/25 14:05) Gastrointestinal Upset Medication List - Last Reconciled 09/09/25 by Mirna Trejo, RN amiodarone 200 mg PO DAILY ascorbate calcium (vitamin C) 500 mg PO DAILY bumetanide 1 mg (1/2 x 2 mg) PO DAILY cholecalciferol (vitamin D3) 10 mcg PO DAILY multivitamin 1 tab PO DAILY ropinirole 1 mg PO BID warfarin See Protocol 2.5 mg orally X5 DAYS/ 5MG X 2 DAYS ( and ); Nursing Note INR: 2.1 in therapeutic range Medications and supplements reviewed pt on rprinorole for restless legs - warafarib decreased last week - it has a delayed onst *Pt to have cardiology appt to assess cardiac condition and to stop amiodarone and have a possible ablation done, pt states she prefers to wean off rather than just stop - she was enc to discuss with providers Denies any signs and symptoms of bleeding or bruising or clotting. Bleeding, bruising, clotting discussed Nutritional guidance given - no greens today Dose: keep same dose for now2.5mg x 6 days/ 5mg x 1 day F/U INR: 13 days 09/22/2025 Patient verbalizes understanding of instructions given Anti-Coag Initial Assessment Social Hx Patient Tobacco Use Status: Never used Tobacco alcohol intake: never Coding Level of Care Code Est Patient Level 1 Diagnoses Current use of anticoagulant therapy Z79.01 Assessment & Plan Assessment & Plan (1) Current use of anticoagulant therapy: Code(s): Z79.01 - senior living (current) use of anticoagulants Category: Medical
--- OUTSIDE RECORDS SUMMARY | 2025-09-09 16:17 | XMS_ITS | Clinical Summary ---
Author Organization [facility] Facility Address [address] [address] Care Team Providers Care Property Field Inspector Name Role Phone Dena Gore MD Primary Care Provider [phone] Allergies Active Allergy Reactions Criticality Noted Date [...] require that she be seen at the [facility] but she should definitely be quarantined since onset of her symptoms Friday for 14 days. Patient works at [employer] and would like a note for work [...] and coordinating care for the above issues. 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 The [...] prior to testing. Until then, can try xznp-mtq-vdofrds antihistamine such as generic versions of Margy, [...] [facility] Medicare [facility] Care Teams Property Field Inspector Relationship Specialty Start Date End Date Dena Gore MD [address] [place] [address] PCP - General Internal Medicine 03/13/22
--- OUTSIDE RECORDS SUMMARY | 2025-09-09 16:17 | XMS_ITS | Patient Health Record ---
Author Organization [facility] Clarisa Vangley Address [address] [place] [address] Care Team Providers Care Proof Inspector Name Role Phone Wil ALBERTS, Annalee Justice Primary Care Provider Un available LakeshaKevin hill Unavailable [phone] SchmidIsabelle morris Unavailable [phone] Allergies Allergen (clinical drug ingredient) Drug/Non Drug [...] atherosclerosis of arteries of lower limbs (disorder) (67421149086372853 ) Atherosclerosis of artery of both lower extremities (I70.203) Active confirmed Q7(A), Q8(2B), Q9(1B,2 C) Vital Signs Blood pressure diastolic 75 mm Hg 09/09/2025 Height 5ft 5in in 09/09/2025 Blood pressure systolic 125 mm Hg 09/09/2025 Weight 241 lbs 09/09/2025 BMI 40.1 kg/m2 09/09/2025 Procedures Procedure Date Ordered Date Performed Result Body Sit e 02205-SRIUMXU NAIL, 1-5 12/07/2024 N/A 27828-Mbgzmigj Plate 12/07/2024 N/A 75740-ZOCG SKIN LESIONS, 2 TO 4 12/07/2024 N/A D6467-ASVWOKEP DYSTROPHIC NAILS ANY # 12/07/2024 N/A 44371-JFLUZGL NAIL, 1-5 03/15/2025 N/A 03099-Mcrdrfgm Plate 03/15/2025 N/A 69872-OXSB SKIN LESIONS, 2 TO 4 03/15/2025 N/A D4406-YXHZFLVK DYSTROPHIC NAILS ANY # 03/15/2025 N/A 04078-PTL 08/26/2025 N/A 19716-XVJCSTQ SKIN/TISSUE 09/09/2025 N/A Encounters Encounter Location Date Provider Diagnosis [facility] [place] [address] [place] [address] 12/07/2024 Kevin Crowder Atherosclerosis of artery of [...] right foot M19.071 and Ingrown nail L60.[address] [facility] [address] 03/15/2025 Kevin Crowder Atherosclerosis of artery of both lower extremities I70.203 ; Tinea unguium B35.1 ; Pain in right toe(s) M79.674 ; Pain in left toe(s) M79.675 ; 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 ; Osteoarthritis of midtarsal joint of right foot M19.071 and Ingrown nail L60.[address] [facility] [address] 08/26/2025 Kevin Crowder Ingrown nail L60.[address] [address] 09/09/2025 Kevin Crowder Skin ulcer of toe of left foot with fat layer exposed L97.[address] [address] 10/11/2024 Isabelle Schmid [facility] [address] 12/07/2024 Kevin Crowder [address] [address] 06/17/2025 Kevin Crowder [facility] [address] 08/08/2025 Kevin Crowder Assessments Encounter Date Diagnosis [...] Q9(1B,2C) 08/26/2025 Ingrown nail (ICD-10 - L60.0) 09/09/2025 Skin ulcer of toe of left foot with fat layer exposed (ICD-10 - L97.522) Patient Educated with: WOUND CARE INSTRUCTIONS. pdf (WOUND CARE INSTRUCTIONS. pdf) 03/15/2025 Pain in right toe(s) (ICD-10 - [...] X ray : Foot, right 3V 03/21/2021 12306-JHOKXKT NAIL, 1-5 12/07/2024 64376-WEPZBJO NAIL, 1-5 03/15/2025 07494-Fybqipwx Plate 03/15/2025 22314-Nfxetlyr Plate 12/07/2024 74911-YFF 08/26/2025 33236-JQGAMWB SKIN/TISSUE 09/09/2025 15594-YTOF SKIN LESIONS, 2 TO 4 03/15/20 25 10639-LWOU SKIN LESIONS, 2 TO 4 12/07/19 25 A9798-PALMIFWN DYSTROPHIC NAILS ANY # C8954-EPDERKYU DYSTROPHIC NAILS ANY # X ray : Ankle, right 3V 03/21/2021 Next Appt Details Provider Name:Kevin Crowder , 11/04/2025 11:15:00 AM, [address] [place] [address], [phone], Insurance Providers Payer Name Payer Address Payer Phone Subscriber Number Group Number Insured Name Patient Relationship to Insured Coverage Start Date Coverage End Date Medicare National Govt [employer] [facility] [address] [place] [address] [id number] Davida Downey Self - patient is the insured [employer] [address] [place] [address] [phone] [id number] Davida Downey Self - patient is the [...]
== END 2025-09-09 14:36 | disposition home or self-care (01) ==
LOC: HO.ACS 13:51
PROVIDERS: PCP Internal Medicine; Visit Provider Internal Medicine Medical Oncology
DX: Z79.01 Long term (current) use of anticoagulants (principal)

== ENCOUNTER → 2025-09-09 13:51 | Outpatient (BNVA) | payer MEDICARE, SELFPAY | PROVIDERS: PCP Internal Medicine; Visit Provider Internal Medicine Medical Oncology | DX: I48.0 Paroxysmal atrial fibrillation (principal); Z51.81 Encounter for therapeutic drug level monitoring; Z79.01 Long term (current) use of anticoagulants | CPT/HCPCS: 85610; 99211 ==

== ENCOUNTER 2025-09-16 07:09 | Outpatient (AMB) | payer MEDICARE, SELFPAY ==
--- OUTSIDE RECORDS SUMMARY | 2024-07-14 09:41 | XMS_ITS | Continuity of Care Document ---
Author Organization [facility] Address [address] [place] [address] Phone Care Team Providers Care Bark Fitter Name Role Phone Miguel ALBERTS, RVT, RPVI, [...] Providers Copied on Encounter [facility] [place], [address] [place] [address] Dr Stack 1000[address], [place], [id number], [place] tel:[phone] [place] No Information 4 Miguel ALBERTS RVT, MARY Montez. [address] [place] [address], [place], [id number], [place]. tel:[phone] [place] [facility] [place], [address] [place] [address] Dr Stack 1000[address] 1000Dottie [place], [id number], [place] tel:[phone] [place] Varicose veins of left lower extremity with other complication s 4 Anjelica Reeder. [address] [place] [address], [facility] [place], [id number], [place]. tel:[phone] Referring Provider: Korina FAJARDO, [address] [place] [address], [id number]. tel:[phone] [place] [facility], [address] [place] [address] Dr Stack 1000[address], [place], [id number], [place] tel:[phone] [place] Encounter for follow-up examination after completed treatment for conditions other than malignant nePain in left leg 4 Miguel ALBERTS RVT, MARY Montez. [address] [place] [address], [place], [id number], [place]. tel:[phone] Referring Provider: Korina FAJARDO, [facility] [place], [address]. tel:[phone] [place] [facility], [address] [place] [address] Dr Stack 1000Suite 1000D[place]ie [place], [id number], [place] tel:[phone] [place] Varicose veins of left lower extremity with other complication s 4 Miguel ALBERTS RVT, MARY Montez. [address] [place] [address], [place], [place], [id number], [place]. tel:[phone] Referring Provider: Korina FAJARDO, [address] [place] [address], [facility]. tel:[phone] Office/Outpt E&M Established 15 Mins- CT & [place] [facility], [address] [place] [address] Dr Stack 1000Suite Dottie Greer [place], [id number], [place] tel:[phone] [place] Pruritus, unspecifiedV aricose veins of left lower extremity with other complication sLocalized edemaCramp and spasmRestles s legs syndrome 4 Miguel ALBERTS RVT, MARY Montez. [address] [place] [address], [facility] [place], [id number], [place]. tel:[phone] Referring Provider: Korina FAJARDO, [address] [place] [address], [facility]. tel:[phone] [facility], [address] [place] [address] Dr Stack 1000SuDottie hodge MD, [id number], [place] tel:[phone] [place] Encounter for follow-up examination after completed treatment for conditions other than malignant neChronic venous hypertension (idiopathic) with other complication s of bilateral lower extremity 4 Miguel ALBERTS RVT, MARY Montez. [address] [place] [address], [facility] [place], [id number], [place]. tel:[phone] Referring Provider: Korina FAJARDO, [address] [place] [address], [facility]. tel:[phone] [facility], [address] [place] [address] Dr Stack 1000Suite 1000Dottie [place], [id number], [place] tel:[phone] [facility] Encounter for follow-up examination after completed treatment for conditions other than malignant neoplasmVari cose veins of left lower extremity with pain 4 Elizabeth Beth. [address] [facility], [address], [place], [place], [id number], [place]. tel:[phone] Referring Provider: Korina FAJARDO, [address] [place] [address], [address]. tel:[phone] [facility], [address] [place] [address] Dr Stack 1000[facility] [place], [id number], [place] tel:[phone] [facility] Varicose veins of left lower extremity with other complication s 4 Miguel ALBERTS RVT, MARY Montez. [address] [place] [address], [place], [id number], [place]. tel:[phone] Referring Provider: Korina FAJARDO, [address] [place] [address], [id number]. tel:[phone] [place] [facility], [address] [place] [address] Dr Stack 1000[facility] [place], [id number], [place] tel:[phone] [facility] No Information 4 Miguel ALBERTS RVT, MARY Montez. [address] [place] [address], [place], [id number], [place]. tel:[phone] [facility], [address] [place] [address] Dr Stack 1000Suite Dottie Greer [place], [id number], [place] tel:[phone] CVR - [facility] Encounter for follow-up examination after completed treatment for conditions other than malignant neoplasmChro savi venous hypertension (idiopathic) with other complication s of right lower extremity 4 Miguel ALBERTS RVT, MARY Montez. [address] [place] [address], [place], [id number], [place]. tel:[phone] Referring Provider: Korina FAJARDO, [address] [place] [address], [facility]. tel:[phone] [facility], [address] [place] [address] Dr Stack 1000SuDottie hodge MD, [id number], [place] tel:[phone] CVR - [facility] Varicose veins of right lower extremity with other complication s 4 Miguel ALBERTS RVT, RPVI Robert. [address] [place] [address], [facility], [place], [id number], [place]. tel:[phone] Referring Provider: Korina FAJARDO, [address] [place] [address], [facility]. tel:[phone] [facility], [address] [place] [address] Dr Stack 1000SuDottie hodge MD, [id number], [place] tel:[phone] CVR - [facility] Encounter for follow-up examination after completed treatment for conditions other than malignant neVaricose veins of right lower extremity with pain 4 Miguel ALBERTS RVT, RPVI Robert. [address] [place] [address], [facility] [place], [place], [id number], [place]. tel:[phone] Referring Provider: Korina FAJARDO, [address] [place] [address], [facility]. tel:[phone] [facility], [address] [place] [address] Dr Stack 1000SuDottie hodge MD, [id number], [place] tel:[phone] CVR - [facility] No Information 4 Miguel ALBERTS RVT, MARY Montez. [address] [place] [address], [facility] [place], [place], [id number], [place]. tel:[phone] [facility], [address] [place] [address] Dr Stack 1000SuDottie hodge MD, [id number], [place] tel:[phone] CVR - [facility] Chronic venous hypertension (idiopathic) with inflammation of right lower extremity 4 Miguel ALBERTS RVT, MARY Montez. [address] [place] [address], [place], [place], [id number], . tel:[phone] Referring Provider: Korina FAJARDO, [address] [place] [address], [facility]. tel:[phone] Offic/outpt E&m Estab 5 Min Trial- Telemedicine CT & [place] [facility] [place], [address] [place] [address] Dr Stack 1000Suite Dottie Greer [place], [id number], [place] tel:[phone] CV[place] - [place] Localized edemaCramp and spasmRestles s legs syndromeVeno us insufficienc y (chronic) (peripheral) Pruritus, unspecified Apr- 4 Dayo Camarillo. [address] [place] [address], [place], [place], [id number], [place]. tel:[phone] Referring Provider: Korina FAJARDO, [address] [place] [address], [address]. tel:[phone] Office/Oupt E&M New Pt 45 Mins [facility], [address] [place] [address] Dr Stack 1000Suite Dottie Greer MD, [id number], [place] tel:[phone] [place] Varicose veins of bilateral lower extremities with other complication Jarrod in right lower legPain in left lower legPain in right legRestless legs syndromePrur itus, unspecifiedP ain in left legCramp and spasmLocaliz ed edema Dec- 4 Miguel ALBERTS, RVT, MARY Montez. [address] [place] [address], [place], [place], [id number], [place]. tel:[phone] Referring Provider: LIS PHILLIPS MD MPH R, [address], [place], [address]. tel:[phone] [facility], [address] [place] [address] Dr Stack 1000SuDottie hodge MD, [id number], [place] tel:[phone] [place] Chronic venous hypertension (idiopathic) with other complication s of bilateral lower extremity Miguel ALBERTS, RVT, MARY Montez. [address], [address], [place] CATHERINE [place], [id number], [place]. tel:[phone] Referring Provider: Korina Puente [facility], [address] [place], [address]. tel:[phone] Family History Family Member Type Diagnosis Age At Onset No Information Payers Payer name Insurance type Covered libertarian ID Anny ramirez(s) [facility] [id number] Social History Type Description Quantity Date Captured [...]
[2025-09-16 07:11] VITALS: BP 130/82; PULSE 54; TEMP 36.8; O2SAT 98; BMI 41.7
--- NOTE | 2025-09-16 07:11 | AM.OFFWIN_ITS ---
Intake Vital Signs 09/16/25 07:11 Height 5 ft 4 in Weight 243 lb BMI 41.7 BP 130/82 Blood Pressure Location Rt brachial Position Sitting Pulse 54 Pulse Source Pulse Oximeter Temp 98.2 F Temp Source Oral Pulse Oximetry (%) 98 Oxygen Delivery Method Room Air Intake Visit Reasons: EP - Body Aches, Cough, Rib Pain Intake Note: Patient presents with c/o left sided rib pain x2 weeks - sitting in chair & reached over to pet cat & felt sharp pain Patient Tobacco Use Status: Never used Tobacco Allergies Sulfa (Sulfonamide Antibiotics) (SULFA(SULFONAMIDE ANTIBIOTICS)) Allergy (Unknown, Verified 09/16/25 07:14) RASH codeine Adverse Reaction (Verified 09/16/25 07:14) Vomiting fentanyl Adverse Reaction (Verified 09/16/25 07:14) vomiting hydromorphone (From Dilaudid) Adverse Reaction (Verified 09/16/25 07:14) vomiting oxycodone Adverse Reaction (Verified 09/16/25 07:14) Gastrointestinal Upset Do you need a note to return to daycare/school/sports/work: No HPI HPI Comments History of Present Illness Details History of Present Illness - The patient is a 69-year-old female pr esenting with rib pain following an injury sustained while reaching for a cat. - The pain started two weeks ago when th e patient reached for a cat at her son's house, resulting in a sharp pain in the ribs. - The patient reports that the pain is s harp and occurs when taking deep breaths or sneezing. - The pain is exacerbated by sneezing an d palpation of the affected area. - No interventions have been attempted, such as analgesics or ice/heat application. - The patient denies using any medicatio ns like Aleve or Advil and has not used ice or heat due to lack of resources. Review of Systems - Musculoskeletal: Reports sharp rib julee n exacerbated by deep breathing and sneezing. - Respiratory: Reports pain on deep nargis thing, denies any other respiratory symptoms. All systems reviewed and are unremarkable except as noted in HPI Physical Exam General: Cooperative, healthy appearing, comfortable, no acute distress and well developed Orientation: Patient oriented x3 Limitations: No limitations Head: Normal to inspection Ears: Hearing grossly normal bilaterally Nose: Normal External nose present Face and sinus: Normal facial exam Eyes: Appearance normal, both eyes and all related structures Neck: Normal visual inspection and Yes full ROM Respiratory: Normal respiratory effort, but reports pain when taking a deep breath. Skin: No rashes or lesions noted Neuro: Patient oriented x3 Extremities: Normal to inspection [facility] Medical History Family history of breast cancer in first degree relative Rib pain on left side History of kidney stones Dyslipidemia Osteoporosis Impaired fasting glucose Vaccine refused by patient Elevated brain natriuretic peptide (BNP) level Anemia Morbid obesity Iliotibial band syndrome Lumbosacral radiculopathy due to osteoarthritis of spine History of deep vein thrombophlebitis of lower extremity Positive ALVIN (antinuclear antibody) CKD (chronic kidney disease) stage 3, GFR 30-59 ml/min Osteoarthritis of right ankle and foot Postmenopausal Venous insufficiency of both lower extremities Diverticulitis Peripheral vascular complication of surgical procedure Peripheral vascular disease Hyperlipidemia DVT (deep venous thrombosis) Diastolic heart failure Paroxysmal A-fib BERE (obstructive sleep apnea) Surgical History History of lithotripsy History of cardiac cath Hx of vascular surgery H/O hysterectomy for benign disease Family History Father Emphysema, unspecified Mother No problems noted. Brother Atrial fibrillation Sister Atrial fibrillation Sister Breast cancer Social History Household Members: None Housing: House Do you presently have visiting nurse or other home services: No Alcohol intake: never Patient Tobacco Use Status: Never used Tobacco e-Cigarette/Vaping Use: Never Used service: No Current occupational status: retired and disabled Current occupation: rt handed Cognitive needs: No Hearing needs: No Vision needs: Yes Physical Exam Vital Signs: Last Vital Signs Temp 98.2 F 09/16/25 07:11 Pulse 54 09/16/25 07:11 BP 130/82 09/16/25 07:11 Pulse Ox 98 09/16/25 07:11 Oxygen Delivery Method Room Air 09/16/25 07:11 BMI result Body Mass Index 41.7 Assessment & Plan Assessment & Plan (1) Rib pain on left side: Code(s): R07.81 - Pleurodynia Plan: Patient was informed and verbally consented to the use of an ambient scribe for clinic note documentation during this visit. Rib Pain - Plan to obtain a chest and rib x-ray to assess for any fractures or lung involvement. - Recommend the use of Voltaren gel as a topical anti-inflammatory treatment. - Patient advised to visit the hospital for an x-ray and follow-up with results. Orders: Orders XR ribs LT min 3V w CXR1V Today R07.81 - Pleurodynia Coding Level of Care Code Est Pt Level 4 (72077) Diagnoses Rib pain on left side R07.81
== END 2025-09-16 07:44 | disposition home or self-care (01) ==
PROVIDERS: PCP Internal Medicine; Visit Provider Physician Assistant
DX: R07.81 Pleurodynia (principal)

== ENCOUNTER 2025-09-16 07:09 | Outpatient (REF) | payer MEDICARE, SELFPAY ==
--- OUTSIDE RECORDS SUMMARY | 2024-10-11 06:30 | XMS_ITS ---
Author Organization [facility] Clarisa Cruz Address [address] [facility] [place] [address] Care Team Providers Care Mechanical Product Engineer Name Role Phone Wil ALBERTS, Annalee Justice Primary Care Provider Un available Kevin Crowder Unavailable [phone] Isabelle Schmid Unavailable [phone] Allergies Allergen (clinical drug ingredient) Drug/Non Drug Allergy documented on EMR Reaction Allergy Type Onset Date Status Information temporarily unavailable Codeine Unknown Drug Allergy Active Information temporarily unavailable Latex Unknown Allergy Active Information temporarily unavailable Sulfa Antibiotics Unknown Drug Allergy Active Medications [...] No Encounters Encounter Location Date Provider Diagnosis [facility] [place] [address] [place] [address] 10/11/2024 Isabelle Schmid Plan Of Treatment Next Appt Details Provider Name:Kevin Crowder , 11/04/2025 11:15:00 AM, [address] [facility], [place], [address], Progress Notes * Donald DOWNEYaDOB:1955 (69 yo F)Acc No.[id number]:10/11/2024 Progress Notes Patient: Davida SOL Provider: Piper Schmid DPM :1955 A ge:69 Y S ex:Female Date:10/11/2024 Address:[address] [place], [place] [phone] Pcp:Zachery Giordano Subjective: * Chief Complaints: * [...] enies. C ardiovascular: Pacemaker d enies. M CARTRIDGE ASSEMBLING MACHINE ADJUSTER d enies. W PW d enies. C [...] Date: 12/11/2023 Generated for Елена linda/Kallie/Juancarlos on: 07:56 AM EDT
--- OUTSIDE RECORDS SUMMARY | 2024-12-16 09:00 | XMS_ITS ---
Author Organization [facility] Address [address] [place] [address] Care Team Providers Care Regional Service Manager Name Role Phone Wil ALBERTS, Annalee Justice Primary Care Provider Un available Kevin Crowder Unavailable [phone] Isabelle Schmid [phone] REASON FOR VISIT sooner appt Encounters Encounter Location Date Provider Diagnosis [facility] [address] [place] [address] 12/16/2024 Isabelle Schmid Plan Of Treatment Next Appt Details Provider Name:Kevin Crowder , 11/04/2025 11:15:00 AM, [address] [place], [address], Progress Notes * Donald RUIZaDOB:1955 (69 yo F)Acc No.[id number]:12/16/2024 Progress Notes Patient: Davida SOL Provider: Piper Schmid DPM :1955 A ge:69 Y S ex:Female Date:12/16/2024 Address:[address] [place] [address] Pcp:Zachery Giordano Subjective: * Chief Complaints: * [...] 0 12/16/2024 Generated for Елена Suazo/Juancarlos on: 07:56 AM EDT
--- OUTSIDE RECORDS SUMMARY | 2025-06-17 09:30 | XMS_ITS ---
Author Organization [facility] Address [address] [place] [address] Care Team Providers Care Intelligence Manager Name Role Phone Wil ALBERTS, Annalee Justice Primary Care Provider Un available Kevin Crowder Unavailable [phone] Allergies Allergen (clinical drug ingredient) Drug/Non Drug Allergy documented on EMR Reaction Allergy Type Onset Date Status Information temporarily unavailable Codeine Unknown Drug Allergy Active Information temporarily unavailable Latex Unknown Allergy Active Information temporarily unavailable Sulfa Antibiotics rash Drug Allergy Active Medications [...] Active Encounters Encounter Location Date Provider Diagnosis [facility] [address] [place] [address] 06/17/2025 Kevin Crowder Plan Of Treatment Next Appt Details Provider Name:Kevin Crowder , 11/04/2025 11:15:00 AM, [address] [place], [address], Progress Notes * Loan DOWNEYB:1955 (69 yo F)Acc No.[id number]:06/17/2025 Progress Note Patient: Davida SOL Provider: Rebecca Crowder DPM :1955 A ge:69 Y S ex:Female Date:06/17/2025 Address:[address] [place] [address] Pcp:Zachery Giordano Subjective: * Chief Complaints: * [...] 0 06/17/2025 Generated for Елена linda/Kallie/Juancarlos on: 07:56 AM EDT
--- OUTSIDE RECORDS SUMMARY | 2025-08-12 07:00 | XMS_ITS ---
Author Organization [facility] Address [address] [place] [address] Care Team Providers Care Machine Skiver Name Role Phone Wil ALBERTS, Annalee Justice Primary Care Provider Un available Kevin Crowder Unavailable [phone] Allergies Allergen (clinical drug ingredient) Drug/Non Drug [...] Active Encounters Encounter Location Date Provider Diagnosis [facility] [address] [place] [address] 08/12/2025 Kevin Crowder Plan Of Treatment Next Appt Details Provider Name:Kevin Crowder , 11/04/2025 11:15:00 AM, [address] [place], [address], Progress Notes * Loan DOWNEYB:1955 (69 yo F)Acc No.[id number]:08/12/2025 Progress Note Patient: Davida SOL Provider: Rebecca Crowder DPM :1955 A ge:69 Y S ex:Female Date:08/12/2025 Address:[address] [place] [address] Pcp:Zachery Giordano Subjective: * Chief Complaints: * [...] 0 08/12/2025 Generated for Елена linda/Kallie/Juancarlos on: 07:57 AM EDT
--- NOTE | ~2025-09-16 | XR_ITS ---
EXAMINATION: XR RIBS, LEFT CLINICAL INFORMATION: R07.81 - Pleurodynia COMPARISON: Previous chest and right rib x-ray May [address] most recent May 2025 TECHNIQUE: 3 views of the left ribs and one view of the chest were obtained. FINDINGS: Low lung volumes. Lungs are clear. No pleural effusion or pneumothorax. Cardiac and mediastinal contours are stable. No rib fracture seen. Degenerative changes of the spine and mild scoliosis. Mild degenerative changes at the shoulder joints. XR/XR ribs LT min 3V w CXR1V IMPRESSION: Low lung volumes. No evidence for acute disease in the chest. No rib fracture. Electronically signed by: Rachael Ramirez MD 09/16/2025 08:20 AM EDT
--- OUTSIDE RECORDS SUMMARY | 2025-09-16 07:57 | XMS_ITS | Clinical Summary ---
Author Organization [facility] Facility Address [address] [address] Care Team Providers Care Commercial Field Inspector Name Role Phone Dena Gore MD Primary Care Provider [phone] Allergies Active Allergy Reactions Criticality Noted Date [...] require that she be seen at the [facility] but she should definitely be quarantined since onset of her symptoms Friday for 14 days. Patient works at [employer] and would like a note for work [...] the hips bilaterally, referral to [facility] orthopedics for consultation question management. The [...] prior to testing. Until then, can try [id number] antihistamine such as generic versions of Margy, [...] to complete this topic Insurance Medicare [facility] Medicare [facility] Care Teams Commercial Field Inspector Relationship Specialty Start Date End Date Dena Gore MD [address] [place] [address] PCP - General Internal Medicine 03/13/22
--- OUTSIDE RECORDS SUMMARY | 2025-09-16 07:57 | XMS_ITS | Patient Health Record ---
Author Organization [facility] Clarisa sandra [place] Address [address] [facility] [place] [address] Care Team Providers Care Grip Name Role Phone Wil ALBERTS, Annalee Justice Primary Care Provider Un available Kevin Crowder Unavailable [phone] Isabelle Schmid Unavailable [phone] Allergies Allergen (clinical drug ingredient) Drug/Non Drug Allergy documented on EMR Reaction Allergy Type Onset Date Status Information temporarily unavailable Codeine Unknown Drug Allergy Active Information temporarily unavailable Latex Unknown Allergy Active Information temporarily unavailable Sulfa Antibiotics rash Drug Allergy Active Reason [...] Problem Status W/U Status Risk Notes Problem Information temporarily unavailable Atherosclerosis of artery of both lower extremities (I70.203) Active confirmed Q7(A), Q8(2B), Q9(1B,2C ) Vital Signs Blood pressure diastolic 75 mm Hg 09/09/2025 Height 5ft 5in in 09/09/2025 Blood pressure systolic 125 mm Hg 09/09/2025 Weight 241 lbs 09/09/2025 BMI 40.1 kg/m2 09/09/2025 Procedures Procedure Date Ordered Date Performed Result Body Sit e 91460-ILOBTWM NAIL, 1-5 12/07/2024 N/A 59731-Uiluvciw Plate 12/07/2024 N/A 25602-MDUO SKIN LESIONS, 2 TO 4 12/07/2024 N/A O8299-RPRPXFDU DYSTROPHIC NAILS ANY # 12/07/2024 N/A 75775-DTNAHYY NAIL, 1-5 03/15/2025 N/A 80478-Jpbuzwss Plate 03/15/2025 N/A 06220-CHIR SKIN LESIONS, 2 TO 4 03/15/2025 N/A A7564-GLXYEDJG DYSTROPHIC NAILS ANY # 03/15/2025 N/A 60631-JGC 08/26/2025 N/A 33987-IUKATTU SKIN/TISSUE 09/09/2025 N/A Encounters Encounter Location Date Provider Diagnosis [facility] [place] [address] [place] [address] 12/07/2024 Kevin Crowder Atherosclerosis of artery of [...] right foot M19.071 and Ingrown nail L60.[address] [address] 03/15/2025 Kevin Crowder Atherosclerosis of artery of both lower extremities I70.203 ; Tinea unguium B35.1 ; Pain in right toe(s) M79.674 ; Pain in left toe(s) M79.675 ; 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 ; Osteoarthritis of midtarsal joint of right foot M19.071 and Ingrown nail L60.[address] [address] 08/26/2025 Kevin Crowder Ingrown nail L60.[address] [address] 09/09/2025 Kevin Crowder Skin ulcer of toe of left foot with fat layer exposed L97.[address] [address] 10/11/2024 Isabelle Schmid [address] [address] 12/07/2024 Kevin Crowder [address] [address] 06/17/2025 Kevin Crowder [address] [address] 08/08/2025 Kevin Crowder Assessments Encounter Date Diagnosis [...] X ray : Foot, right 3V 03/21/2021 45926-GRZHAZO NAIL, 1-5 12/07/2024 53051-UQVLFAN NAIL, 1-5 03/15/2025 98572-Ordrswfs Plate 03/15/2025 44374-Uclffmfj Plate 12/07/2024 33364-CBC 08/26/2025 35712-GBIRTVR SKIN/TISSUE 09/09/2025 32672-QMVD SKIN LESIONS, 2 TO 4 03/15/20 08646-XZZG SKIN LESIONS, 2 TO 4 12/07/19 E9398-ADJVSHQL DYSTROPHIC NAILS ANY # C5107-NFONWQIZ DYSTROPHIC NAILS ANY # X ray : Ankle, right 3V 03/21/2021 Next Appt Details Provider Name:Kevin Crowder , 11/04/2025 11:15:00 AM, [address] [place], [address], Insurance Providers Payer Name Payer Address Payer Phone Subscriber Number Group Number Insured Name Patient Relationship to Insured Coverage Start Date Coverage End Date Medicare National Govt [employer] [address] [facility] [place] [address] [id number] JoseDonald castanoa Self - patient is the insured 1 [employer] [address] [place] [address] [id number] Davida Downey Self - patient is the [...]
== END 2025-09-16 07:10 | disposition home or self-care (01) ==
LOC: HO.XRAY 07:09
PROVIDERS: PCP Internal Medicine; Visit Provider Physician Assistant
DX: R07.81 Pleurodynia (principal); I83.12 Varicose veins of left lower extremity with inflammation
CPT/HCPCS: 71101; 99202; 99212

== ENCOUNTER → 2025-09-16 07:57 | Outpatient (BNV) | payer MEDICARE, SELFPAY | PROVIDERS: PCP Internal Medicine; Visit Provider Radiology Diagnostic Radiology | DX: R07.81 Pleurodynia (principal) | CPT/HCPCS: 71101 ==

== ENCOUNTER 2025-09-16 09:05 | Outpatient (AMB) | payer MEDICARE, SELFPAY ==
[2025-09-16 09:11] VITALS: BMI 39.6
--- NOTE | 2025-09-16 09:11 | A.OFFVIS_ITS ---
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 Pt states she has new VV on her Left LE. States she also had another ablation since shes last been seen in [place], states after that procedure she had a fall and didn't help. 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 She has a history of varicose veins, for which she underwent an a blation procedure on her left leg in April 2021. Following the procedure, she noticed the veins reappearing and sought additional treatment at another facility, which she later regretted. The patient reports swelling in both legs, with the left leg being more affected. She also experiences discomfort in her left ankle, which was previously diagnosed as arthritis by a foot doctor. Her medical history includes deep vein thrombosis (DVT) in the left leg, for which she is on anticoagulation therapy with Coumadin. It has been affecting there daily activities including walking. It is noted more so in left leg. Patient left leg venous ablation in 2017 along with microphlebectomy in 2020. Additional venous procedures performed at [place] for vein sikh Patient several DVTs in the past for which she is on Coumadin for after hysterectomy in 2005 Patient denies any history of phlebitis. Trial of compression includes - [id number]-[id number] They now present for vascular evaluation regarding their varicose veins. [facility] Medical History Family history of breast cancer in first degree relative Rib pain on left side History of kidney stones Dyslipidemia Osteoporosis Impaired fasting glucose Vaccine refused by patient Elevated brain natriuretic peptide (BNP) level Anemia Morbid obesity Iliotibial band syndrome Lumbosacral radiculopathy due to osteoarthritis of spine History of deep vein thrombophlebitis of lower extremity Positive ALVIN (antinuclear antibody) CKD (chronic kidney disease) stage 3, GFR 30-59 ml/min Osteoarthritis of right ankle and foot Postmenopausal Venous insufficiency of both lower extremities Diverticulitis Peripheral vascular complication of surgical procedure Peripheral vascular disease Hyperlipidemia DVT (deep venous thrombosis) Diastolic heart failure Paroxysmal A-fib BERE (obstructive sleep apnea) Surgical History History of lithotripsy History of cardiac cath Hx of vascular surgery H/O hysterectomy for benign disease Family History Father Emphysema, unspecified Mother No problems noted. Brother Atrial fibrillation Sister Atrial fibrillation Sister Breast cancer Social History Household Members: None Housing: House Do you presently have visiting nurse or other home services: No Alcohol intake: never Patient Tobacco Use Status: Never used Tobacco e-Cigarette/Vaping Use: Never Used service: No Current occupational status: retired and disabled Current occupation: rt handed Cognitive needs: No Hearing needs: No Vision needs: Yes Review of Systems Const Reports as per HPI ENT Reports no additional complaints Card Denies chest pain, Denies chest pain at rest and Denies chest pain with activity Resp Denies chest congestion and Denies cough GI Reports no additional complaints Musc Details: pain over varicosities, aching of lower extremities, swelling, cramping, heaviness and tiredness, itching Denies abnormal gait Skin/Breast Reports pruritus and Denies wounds Neuro Reports no additional complaints and Denies abnormal gait Psych Denies no additional complaints Physical Exam Vital Signs: BMI result Body Mass Index 39.6 Const General: cooperative, healthy appearing and comfortable Orientation/consciousness: oriented to person, oriented to place and oriented to time Neck Carotids: no bruits Chest Chest palpation & inspection: normal inspection of the chest and normal palpation of entire chest wall Resp Effort & Inspection: normal respiratory effort and able to speak in complete sentences Cardio Rate: regular rate Heart sounds: S1 normal heart sound present and S2 normal heart sound present Peripheral pulses: Peripheral pulses 2+ throughout GI Inspection: Yes normal to inspection Skin Other: +2 edema, large rope-like varicosities greater than 4 mm CEAP Classification C4 - skin color changes Ep - Etiology Primary As - superficial veins P - reflux General skin exam: dry skin Neuro General: oriented to person, oriented to place and oriented to time Extrem Right lower extremity: full ROM, normal capillary refill and edema Left lower extremity: full ROM, normal capillary refill and edema Psych Mental Status: mental status grossly normal Assessment & Plan Assessment & Plan (1) Venous insufficiency of both lower extremities: Comment: 2018 - left GSV ablation 05/18/2021- status post left leg microphlebectomy Code(s): I87.2 - Venous insufficiency (chronic) (peripheral) Category: Medical Plan: In short patient has superficial along with deep reflux as known by her previous history. It is unclear what procedures have been done in the interim. I did take the liberty of ordering venous insufficiency testing and will have the patient follow-up after testing. We did discuss routine conservative measures including compression, elevation, exercise. Thank you for allowing us to assist in her care. If there are any questions or concerns please do not hesitate to contact us. (2) Varicose veins of left lower extremity with inflammation: Code(s): I83.12 - Varicose veins of left lower extremity with inflammation Category: Medical Plan: See above Orders: Orders US venous duplex LE BI Today I83.12 - Varicose veins of left lower extremity with inflammation Coding Level of Care Code New Pt Level 4 (90277) Complex EM visit Add On G2211 Diagnoses Venous insufficiency of both lower extremities I87.2 Varicose veins of left lower extremity with inflammation I83.12
== END 2025-09-16 09:49 | disposition home or self-care (01) ==
LOC: HO.HVS 09:06
PROVIDERS: PCP Internal Medicine; Visit Provider Surgery Vascular Surgery
DX: I83.12 Varicose veins of left lower extremity with inflammation (principal); I87.2 Venous insufficiency (chronic) (peripheral)
CPT/HCPCS: 99204; G2211

== ENCOUNTER 2025-09-22 13:07 | Outpatient (AMB) | payer MEDICARE, SELFPAY ==
--- OUTSIDE RECORDS SUMMARY | 2024-10-11 06:30 | XMS_ITS ---
Author Organization [facility] Clarisa Cruz Address [address] [facility] [place] [address] Care Team Providers Care Audiovisual Production Specialist Name Role Phone Wil ALBERTS, Annalee Justice Primary Care Provider Un available Kevin Crowder Unavailable [phone] Isabelle Schmid Unavailable [phone] Allergies Allergen (clinical drug ingredient) Drug/Non Drug [...] No Encounters Encounter Location Date Provider Diagnosis [facility] [place] [address] [place] [address] 10/11/2024 Isabelle Schmid Plan Of Treatment Next Appt Details Provider Name:Kevin Crowder , 11/04/2025 11:15:00 AM, [address] [facility], [place], [address], Progress Notes * Loan DOWNEYB:1955 (69 yo F)Acc No.[id number]:10/11/2024 Progress Notes Patient: Davida SOL Provider: Piper Schmid DPM :1955 A ge:69 Y S ex:Female Date:10/11/2024 Address:[address] [place], [place] [id number] Pcp:Zachery Giordano Subjective: * Chief Complaints: * [...] enies. C ardiovascular: Pacemaker d enies. M BIOMEDICAL SERVICE ENGINEER d enies. W PW d enies. C [...] Date: 12/11/2023 Generated for Елена linda/Kallie/Juancarlos on: 03:59 PM EDT
--- OUTSIDE RECORDS SUMMARY | 2024-12-16 09:00 | XMS_ITS ---
Author Organization [facility] Address [address] [place] [address] Care Team Providers Care Folder Hand Name Role Phone Wil ALBERTS, Annalee Justice Primary Care Provider Un available Kevin Crowder Unavailable [phone] Isabelle Schmid [phone] REASON FOR VISIT sooner appt Encounters Encounter Location Date Provider Diagnosis [facility] [address] [place] [address] 12/16/2024 Isabelle Schmid Plan Of Treatment Next Appt Details Provider Name:Kevin Crowder , 11/04/2025 11:15:00 AM, [address] [place], [address], Progress Notes * Donald RUIZaDOB:1955 (69 yo F)Acc No.[id number]:12/16/2024 Progress Notes Patient: Davida SOL Provider: Piper Schmid DPM :1955 A ge:69 Y S ex:Female Date:12/16/2024 Address:[address] [place] [address] Pcp:Zachery Giordano Subjective: * Chief Complaints: * [...] 0 12/16/2024 Generated for Елена Suazo/Juancarlos on: 04:00 PM EDT
--- OUTSIDE RECORDS SUMMARY | 2025-06-17 09:30 | XMS_ITS ---
Author Organization [facility] Address [address] [place] [address] Care Team Providers Care Warp Coiler Name Role Phone Wil ALBERTS, Annalee Justice Primary Care Provider Un available Kevin Crowder Unavailable [phone] Allergies Allergen (clinical drug ingredient) Drug/Non Drug [...] Active Encounters Encounter Location Date Provider Diagnosis [facility] [address] [place] [address] 06/17/2025 Kevin Crowder Plan Of Treatment Next Appt Details Provider Name:Kevin Crowder , 11/04/2025 11:15:00 AM, [address] [place], [address], Progress Notes * Donald DOWNEYaDOB:1955 (69 yo F)Acc No.[id number]:06/17/2025 Progress Note Patient: Davida SOL Provider: Rebecca Crowder DPM :1955 A ge:69 Y S ex:Female Date:06/17/2025 Address:[address] [place] [address] Pcp:Zachery Giordano Subjective: * Chief Complaints: * [...] DPM Date: 0 06/17/2025 Generated for Елена linda/Kallie/Kaushalitting on: 03:59 PM EDT
--- OUTSIDE RECORDS SUMMARY | 2025-08-12 07:00 | XMS_ITS ---
Author Organization [facility] Address [address] [place] [address] Care Team Providers Care Reel Winder Name Role Phone Wil ALBERTS, Annalee Justice Primary Care Provider Un available Kevin Crowder Unavailable [phone] Allergies Allergen (clinical drug ingredient) Drug/Non Drug [...] Active Encounters Encounter Location Date Provider [facility] [address] [place] [address] 08/12/2025 Kevin Crowder Plan Of Treatment Next Appt Details Provider Name:Kevin Crowder , 11/04/2025 11:15:00 AM, [address] [place], [address], Progress Notes * Donald DOWNEYaDOB:1955 (69 yo F)Acc No.[id number]:08/12/2025 Progress Note Patient: Davida SOL Provider: Rebecca Crowder DPM :1955 A ge:69 Y S ex:Female Date:08/12/2025 Address:[address] [place] [address] Pcp:Zachery Giordano Subjective: * Chief Complaints: * [...] 0 08/12/2025 Generated for Елена linda/Kallie/Juancarlos on: 04:00 PM EDT
[2025-09-22 13:15] LABS: Prothrombin Time Whole Bld POC 25.5 sec (11.1-13.5); ~PT, ~INR - Anti Coag Clinic 2.1 (0.9-1.1)
--- NOTE | 2025-09-22 13:21 | MHC.OFFVISCO ---
Intake Intake Visit Reasons: Anticoagulation Allergies Sulfa (Sulfonamide Antibiotics) (SULFA(SULFONAMIDE ANTIBIOTICS)) Allergy (Unknown, Verified 09/22/25 13:09) RASH codeine Adverse Reaction (Verified 09/22/25 13:09) Vomiting fentanyl Adverse Reaction (Verified 09/22/25 13:09) vomiting hydromorphone (From Dilaudid) Adverse Reaction (Verified 09/22/25 13:09) vomiting oxycodone Adverse Reaction (Verified 09/22/25 13:09) Gastrointestinal Upset Medication List - Last Reconciled 09/22/25 by Mirna Trejo, RN amiodarone 200 mg PO DAILY ascorbate calcium (vitamin C) 500 mg PO DAILY bumetanide 1 mg (1/2 x 2 mg) PO DAILY cholecalciferol (vitamin D3) 10 mcg PO DAILY multivitamin 1 tab PO DAILY ropinirole 1 mg PO BID warfarin See Protocol 2.5 mg orally X5 DAYS/ 5MG X 2 DAYS ( and ); Nursing Note INR: 2.1 in therapeutic range Medications and supplements reviewed No changes in health, diet, medications, or supplements, Denies any signs and symptoms of bleeding or bruising or clotting. Bleeding, bruising, clotting discussed Nutritional guidance given -eat more orange and red vegetables Dose: 5mg x1day/ 2.5mg x 6 days F/U INR: 3 weeks - s/p visiting with family Patient verbalizes understanding of instructions given Anti-Coag Initial Assessment Social Hx Patient Tobacco Use Status: Never used Tobacco alcohol intake: never Coding Level of Care Code Est Patient Level 1 Diagnoses Current use of anticoagulant therapy Z79.01 Assessment & Plan Assessment & Plan (1) Current use of anticoagulant therapy: Code(s): Z79.01 - prison (current) use of anticoagulants Category: Medical
--- OUTSIDE RECORDS SUMMARY | 2025-09-22 16:00 | XMS_ITS | Clinical Summary ---
Author Organization [facility] Facility Address [address] [address] Care Team Providers Care Technical Lead Name Role Phone Dena Gore MD Primary Care Provider [phone] Allergies Active Allergy Reactions Criticality Noted Date [...] Friday for 14 days. Patient works at [employer] and would like a note for work [...] disease of the hips bilaterally, referral to [facility] orthopedics for consultation question management. The [...] prior to testing. Until then, can try [id number]-tjv-ypfiqla antihistamine such as generic versions of Margy, [...] age to complete this topic Insurance Medicare [facility] Medicare [facility] Care Teams Technical Lead Relationship Specialty Start Date End Date Dena Gore MD [address] [place] [address] PCP - General Internal Medicine 03/13/22
--- OUTSIDE RECORDS SUMMARY | 2025-09-22 16:01 | XMS_ITS | Patient Health Record ---
Author Organization [facility] Clarisa Vangle[place] Address [address] [facility] [place] [address] Care Team Providers Care Inventory Planner Name Role Phone Wil ALBERTS, Annalee Justice Primary Care Provider Un available LakeshaKevin hill Unavailable [phone] SchmidIsabelle morris Unavailable [phone] Allergies Allergen (clinical drug ingredient) Drug/Non Drug [...] atherosclerosis of arteries of lower limbs (disorder) ([id number] ) Atherosclerosis of artery of both lower extremities (I70.203) Active confirmed Q7(A), Q8(2B), Q9(1B,2 C) Vital Signs Blood pressure diastolic 75 mm Hg 09/09/2025 Height 5ft 5in in 09/09/2025 Blood pressure systolic 125 mm Hg 09/09/2025 Weight 241 lbs 09/09/2025 BMI 40.1 kg/m2 09/09/2025 Procedures Procedure Date Ordered Date Performed Result Body Sit e 88775-ZDNEDDY NAIL, 1-5 12/07/2024 N/A 71066-Zglcjvfi Plate 12/07/2024 N/A 45680-ECNR SKIN LESIONS, 2 TO 4 12/07/2024 N/A A9083-TQCURJJJ DYSTROPHIC NAILS ANY # 12/07/2024 N/A 03198-BLOSHSL NAIL, 1-5 03/15/2025 N/A 31438-Zhzbaufx Plate 03/15/2025 N/A 26090-DVED SKIN LESIONS, 2 TO 4 03/15/2025 N/A B8841-XXMGHEXT DYSTROPHIC NAILS ANY # 03/15/2025 N/A 61931-QOR 08/26/2025 N/A 65757-JGJBGTX SKIN/TISSUE 09/09/2025 N/A Encounters Encounter Location Date Provider Diagnosis [facility] [place] [address] [place] [address] 12/07/2024 Kevin Crowder Atherosclerosis of artery of [...] right foot M19.071 and Ingrown nail L60.[address] [facility] [address] 03/15/2025 Kevin Crowder Atherosclerosis of artery of both lower extremities I70.203 ; Tinea unguium B35.1 ; Pain in right toe(s) M79.674 ; Pain in left toe(s) M79.675 ; 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 ; Osteoarthritis of midtarsal joint of right foot M19.071 and Ingrown nail L60.[address] [facility] [address] 08/26/2025 Kevin Crowder Ingrown nail L60.[address] [address] 09/09/2025 Kevin Crowder Skin ulcer of toe of left foot with fat layer exposed L97.[address] [address] 10/11/2024 Isabelle Schmid [facility] [address] 12/07/2024 Kevin Crowder [address] [address] 06/17/2025 [facility] [address] 08/08/2025 Kevin Crowder Assessments Encounter Date Diagnosis [...] X ray : Foot, right 3V 03/21/2021 99479-HCTLGGC NAIL, 1-5 12/07/2024 46465-VNUXAKI NAIL, 1-5 03/15/2025 93459-Tugsajdj Plate 03/15/2025 66557-Susedzbf Plate 12/07/2024 74275-IPF 08/26/2025 79006-EJWTTHE SKIN/TISSUE 09/09/2025 80454-YAED SKIN LESIONS, 2 TO 4 03/15/20 25 31888-TSMG SKIN LESIONS, 2 TO 4 12/07/19 25 F2031-SCRLNYHE DYSTROPHIC NAILS ANY # Y7550-TLZHEPOP DYSTROPHIC NAILS ANY # X ray : Ankle, right 3V 03/21/2021 Next Appt Details Provider Name:Kevin Crowder , 11/04/2025 11:15:00 AM, [address] [place] [address], [phone], Insurance Providers Payer Name Payer Address Payer Phone Subscriber Number Group Number Insured Name Patient Relationship to Insured Coverage Start Date Coverage End Date Medicare National Govt [employer] [facility] [address] [place] [address] [id number] Davida Downey Self - patient is the insured [employer] [address] [place] [address] [phone] [id number] Davida Downey Self - patient is the [...]
== END 2025-09-22 13:26 | disposition home or self-care (01) ==
LOC: HO.ACS 13:07
PROVIDERS: PCP Internal Medicine; Visit Provider Internal Medicine Medical Oncology
DX: Z79.01 Long term (current) use of anticoagulants (principal)

== ENCOUNTER → 2025-09-22 13:07 | Outpatient (BNVA) | payer MEDICARE, SELFPAY | PROVIDERS: PCP Internal Medicine; Visit Provider Internal Medicine Medical Oncology | DX: I48.0 Paroxysmal atrial fibrillation (principal); Z79.01 Long term (current) use of anticoagulants; Z51.81 Encounter for therapeutic drug level monitoring | CPT/HCPCS: 85610; 99211 ==

== ENCOUNTER 2025-10-17 13:02 | Outpatient (AMB) | payer MEDICARE, SELFPAY ==
--- OUTSIDE RECORDS SUMMARY | 2024-07-14 08:41 | XMS_ITS | Continuity of Care Document ---
Author Organization [facility] Address [address] [place] [address] Phone Care Team Providers Care Medical Claims Processor Name Role Phone Miguel ALBERTS, RVT, RPVI, [...] Providers Copied on Encounter [facility] [place], [address] [place] [address] Dr Stack 1000[address] 1000, [place], [id number], [place] tel:[phone] [facility] No Information 4 Miguel ALBERTS RVT, MARY Montez. [address] [place] [address], [place], [id number], [place]. tel:[phone] [facility] [place], [address] [place] [address] Dr Stack 1000Suite 1000Dottie [place], [id number], [place] tel:[phone] [place] Varicose veins of left lower extremity with other complication s 4 Anjelica Reeder. [address] [place] [address], [facility] [place], [id number], [place]. tel:[phone] Referring Provider: Korina FAJARDO, [address] [place] [address], [address]. tel:[phone] [facility], [address] [place] [address] Dr Stack 1000[address] 1000, [place], [id number], [place] tel:[phone] [place] Encounter for follow-up examination after completed treatment for conditions other than malignant nePain in left leg 4 Miguel ALBERTS RVT, MARY Montez. [address] [place] [address], [place], [id number], [place]. tel:[phone] Referring Provider: Korina FAJARDO, [place], [address]. tel:[phone] [facility], [address] [place] [address] Dr Stack 1000Suite 1000Dottie [place], [id number], [place] tel:[phone] [facility] Varicose veins of left lower extremity with other complication s 4 Miguel ALBERTS RVT, MARY Montez. [address] [place] [address], [place], [place], [id number], [place]. tel:[phone] Referring Provider: Korina FAJARDO, [address] [place] [address], [facility]. tel:[phone] Office/Outpt E&M Established 15 Mins- CT & [place] [facility], [address] [place] [address] Dr Stack 1000Suite Dottie Greer [place], [id number], [place] tel:[phone] [place] Pruritus, unspecifiedV aricose veins of left lower extremity with other complication sLocalized edemaCramp and spasmRestles s legs syndrome 4 Miguel ALBERTS RVT, MARY Montez. [address] [place] [address], [facility] [place], [id number], [place]. tel:[phone] Referring Provider: Korina FAJARDO, [address] [place] [address], [facility]. tel:[phone] [facility], [address] [place] [address] Dr Stack 1000SuDottie hodge MD, [id number], [place] tel:[phone] [facility] Encounter for follow-up examination after completed treatment for conditions other than malignant neChronic venous hypertension (idiopathic) with other complication s of bilateral lower extremity 4 Miguel ALBERTS RVT, MARY Montez. [address] [place] [address], [facility] [place], [id number], [place]. tel:[phone] Referring Provider: Korina FAJARDO, [address] [place] [address], [facility]. tel:[phone] [facility], [address] [place] [address] Dr Stack 1000Suite 1000Dottie [place], [id number], [place] tel:[phone] CVR [facility] Encounter for follow-up examination after completed treatment for conditions other than malignant neoplasmVari cose veins of left lower extremity with pain 4 Elizabeth Beth. [address], [address], [place], [place], [id number], [place]. tel:[phone] Referring Provider: Korina FAJARDO, [address] [place] [address], [address]. tel:[phone] [facility], [address] [place] [address] [facility] 1000Suite [facility], [id number], [place] tel:[phone] CVR [facility] Varicose veins of left lower extremity with other complication s 4 Miguel ALBERTS RVT, MARY Montez. [address] [place] [address], [place], [id number], [place]. tel:[phone] Referring Provider: Korina FAJARDO, [address] [place] [address], [address]. tel:[phone] [facility], [address] [place] [address] [facility] 1000Suite Dottie Greer [place], [id number], [place] tel:[phone] [facility] No Information 4 Miguel ALBERTS RVT, MARY Montez. [address] [place] [address], [place], [id number], [place]. tel:[phone] [facility], [address] [place] [address] Dr Stack 1000Suite 1000Dottie MD, [id number], [place] tel:[phone] CVR - [facility] Encounter for follow-up examination after completed treatment for conditions other than malignant neoplasmChro savi venous hypertension (idiopathic) with other complication s of right lower extremity 4 Miguel ALBERTS RVT, MARY Motnez. [address] [place] [address], [place], [id number], [place]. tel:[phone] Referring Provider: Korina FAJARDO, [address] [place] [address], [facility]. tel:[phone] [facility] [place], [address] [place] [address] Dr Stack 1000SuDottie hodge MD, [id number], [place] tel:[phone] CVR - [facility] Varicose veins of right lower extremity with other complication s 4 Miguel ALBERTS RVT, MARY Montez. [address] [place] [address], [facility], [place], [id number], [place]. tel:[phone] Referring Provider: Korina FAJARDO, [address] [place] [address], [facility]. tel:[phone] [facility] [place], [address] [place] [address] Dr Stack 1000Dottie hodge MD, [id number], [place] tel:[phone] CVR [facility] Encounter for follow-up examination after completed treatment for conditions other than malignant neVaricose veins of right lower extremity with pain 4 Miguel ALBERTS RVT, RPVI Robert. [address] [place] [address], [facility], [place], [id number], [place]. tel:[phone] Referring Provider: Korina FAJARDO, [address] [place] [address], [facility]. tel:[phone] [facility], [address] [place] [address] Dr Stack 1000SuDottie hodge MD, [id number], [place] tel:[phone] CVR - [facility] No Information 4 Miguel ALBERTS RVT, MARY Montez. [address] [place] [address], [facility] [place], [place], [id number], [place]. tel:[phone] [facility], [address] [place] [address] Dr Stack 1000SuDottie hodge MD, [id number], [place] tel:[phone] CVR - [facility] Chronic venous hypertension (idiopathic) with inflammation of right lower extremity 4 Miguel ALBERTS RVT, MARY Montez. [address] [place] [address], [place], [place], [id number], . tel:[phone] Referring Provider: Korina FAJARDO, [address] [place] [address], [address]. tel:[phone] Offic/outpt E&m Estab 5 Min Trial- Telemedicine CT & [place] [facility], [address] [place] [address] Dr Stack 1000Suite Dottie Greer MD, [id number], [place] tel:[phone] [place] Localized edemaCramp and spasmRestles s legs syndromeVeno us insufficienc y (chronic) (peripheral) Pruritus, unspecified Feb- 4 Dayo Camarillo. [address] [place] [address], [place], [place], [id number], [place]. tel:[phone] Referring Provider: Korina FAJARDO, [address] [place] [address], [address]. tel:[phone] Office/Oupt E&M New Pt 45 Mins [facility], [address] [place] [address] Dr Stack 1000Suite Dottie Greer [place], [id number], [place] tel:[phone] [place] Varicose veins of bilateral lower extremities with other complication Jarrod in right lower legPain in left lower legPain in right legRestless legs syndromePrur itus, unspecifiedP ain in left legCramp and spasmLocaliz ed edema 4 Miguel ALBERTS, RVT, MARY Montez. [address] [place] [address], [place], [place], [id number], [place]. tel:[phone] Referring Provider: LIS PHILLIPS MD MPH R, [address] [facility] [address], [place], [address]. tel:[phone] [facility], [address] [place] [address] Dr Stack 1000SuDottie hodge MD, [id number], [place] tel:[phone] CVR - [facility] Chronic venous hypertension (idiopathic) with other complication s of bilateral lower extremity 4 Miguel ALBERTS, RVT, MARY Montez. [address] [facility], [address], [place], [id number], [place]. tel:[phone] Referring Provider: Korina JIANGP, [address] [place], [address]. tel:[phone] Family History Family Member Type Diagnosis Age At Onset No Information Payers Payer name Insurance type Covered libertarian ID Anny ramirez(s) [facility] [id number] Social History Type Description Quantity Date Captured [...] Information Instructions Date Instruction Additional Infor mation Pre and post instruc tions reviewed and provided Related to Varicose veins of left lower extremity with other complications Lifestyle education Related to B veronica mass index (BMI) 40.0-44.9, adult Giving Encouragement to exercise Related to Body mass index (BMI) 40.0-44.9, adult Diet education Related to Body mass index (BMI) 40.0-44.9, adult Patient education booklet given Related to Varicose [...]
[2025-10-17 13:08] LABS: Prothrombin Time Whole Bld POC 32.2 sec (11.1-13.5); ~PT, ~INR - Anti Coag Clinic 2.7 (0.9-1.1)
--- NOTE | 2025-10-17 13:19 | MHC.OFFVISCO ---
Intake Intake Visit Reasons: Anticoagulation Allergies Sulfa (Sulfonamide Antibiotics) (SULFA(SULFONAMIDE ANTIBIOTICS)) Allergy (Unknown, Verified 10/17/25 13:03) RASH codeine Adverse Reaction (Verified 10/17/25 13:03) Vomiting fentanyl Adverse Reaction (Verified 10/17/25 13:03) vomiting hydromorphone (From Dilaudid) Adverse Reaction (Verified 10/17/25 13:03) vomiting oxycodone Adverse Reaction (Verified 10/17/25 13:03) Gastrointestinal Upset Medication List - Last Reconciled 10/17/25 by Mirna Trejo RN amiodarone 200 mg PO DAILY ascorbate calcium (vitamin C) 500 mg PO DAILY bumetanide 1 mg (1/2 x 2 mg) PO DAILY cholecalciferol (vitamin D3) 10 mcg PO DAILY multivitamin 1 tab PO DAILY ropinirole 1 mg PO BID warfarin See Protocol 2.5 mg orally X5 DAYS/ 5MG X 2 DAYS ( and ); Nursing Note INR: 2.7 in therapeutic range- pt has been feeling very fatigued hr 30-40 while away in [place] - she decreased amiodarone to 1/2 dose on her own and called cardiology- Heart monitor tomorrow, HR improved low 40's to 50s- enc to go to ER if lower and to call cardiology. With lower dose of amiodarone and possibly d/c - may need to increase warfarin in a week, *Msg to providers to please chk thyroid Medications and supplements reviewed No changes in diet, or supplements, Denies any signs and symptoms of bleeding or bruising or clotting. Bleeding, bruising, clotting discussed Nutritional guidance given - keep diet the same Dose: 2.5mg x 6 days/ 5mg x 1 day F/U INR: 10 days due to amiodarone dose changes Patient verbalizes understanding of instructions given Anti-Coag Initial Assessment Social Hx Patient Tobacco Use Status: Never used Tobacco alcohol intake: never Coding Level of Care Code Est Patient Level 1 Diagnoses Current use of anticoagulant therapy Z79.01 Results AMB INR Fingerstick AMB INR Fingerstick 2.7 Last Edit by Mirna Trejo RN on 10/17/25 13:09 MANUAL ENTRY Assessment & Plan Assessment & Plan (1) Current use of anticoagulant therapy: 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
== END 2025-10-17 13:25 | disposition home or self-care (01) ==
LOC: HO.ACS 13:02
PROVIDERS: PCP Internal Medicine; Visit Provider Internal Medicine Medical Oncology
DX: Z79.01 Long term (current) use of anticoagulants (principal)

== ENCOUNTER 2025-10-17 14:53 | Outpatient (REF) | payer MEDICARE, SELFPAY ==
--- NOTE | ~2025-10-17 | MM_ITS ---
EXAMINATION: MM SCREENING DIGITAL BREAST TOMOSYNTHESIS, BILATERAL CLINICAL INFORMATION: Screening. Asymptomatic. COMPARISON: Mammography: Comparison is made with available priors TECHNIQUE: Digital breast mammography with tomosynthesis is performed in both the craniocaudal and mediolateral oblique views along with computer-aided detection (CAD). FINDINGS: There are scattered areas of fibroglandular density. There are no significant masses, abnormal calcifications, or other abnormalities. MM/MM tomosynthesis screening BI IMPRESSION: No mammographic evidence of malignancy. ASSESSMENT: BI-RADS Category 1: Negative RECOMMENDATION: Routine annual mammography screening. 1 year F/U This examination should not preclude the clinical evaluation of a suspicious palpable abnormality. This patient's information was entered into a reminder system with a target due date for their next mammogram. Electronically signed by: Nelly Herrera DO 10/18/2025 03:26 PM MATIAS
== END 2025-10-17 14:54 | disposition home or self-care (01) ==
LOC: HO.MAMMO 14:53
PROVIDERS: PCP Internal Medicine; Visit Provider Internal Medicine
DX: Z12.31 Encounter for screening mammogram for malignant neoplasm of breast (principal); Z51.81 Encounter for therapeutic drug level monitoring
CPT/HCPCS: 77063; 77067; 85610; 99211

== ENCOUNTER → 2025-10-17 15:15 | Outpatient (BNV) | payer MEDICARE, SELFPAY | PROVIDERS: PCP Internal Medicine; Visit Provider Internal Medicine | DX: Z12.31 Encounter for screening mammogram for malignant neoplasm of breast (principal) | CPT/HCPCS: 77063; 77067 ==

== ENCOUNTER → 2025-10-18 11:25 | Outpatient (REF) | payer MEDICARE, SELFPAY ==
--- OUTSIDE RECORDS SUMMARY | 2024-07-14 08:41 | XMS_ITS | Continuity of Care Document ---
Author Organization [facility] Address [address] [place] [address] Phone Care Team Providers Care Nurse Charge Rn Name Role Phone Miguel ALBERTS, RVT, RPVI, Tc Unavailable U navailable Allergies, Adverse Reactions, Alerts Substance Reaction Status Criticality Sulfa (Sulfonamide Antibiotics) Active No Information oxycodone Active No Information Medications Medication Instructions Dosage Effective Dates (start - stop) Status Comments warfarin 1 mg tablet - Active Procedures Procedure Date Inj Scleros Solut; Mx Veins 1- CT & [place] A Ultrason Guidan Needle Bx-rad- CT & [place] A Duplex Scan-extrem Veins; Uni/ CT & [place] A Varithena, Single Truncal Vein - CT & [place] Office/Outpt E&M Established 15 Mins- CT & [place] Duplex Scan-extrem Veins; Comp- CT & [place] Duplex Scan-extrem Veins; Uni/ CT & [place] J Varithena, Single Truncal Vein - CT & [place] Duplex Scan-extrem Veins; Uni/ CT & MA M Inj Scleros Solut; Mx Veins 1- CT & [place] M Ultrason Guidan Needle Bx-rad- CT & [place] M Duplex Scan-extrem Veins; Uni/ CT & [place] M Endovenous Rf, 1st Vein- CT & [place] 2023 Offic/outpt E&m Estab 5 Min Trial- Telem edicine CT & [place] Office/Oupt E&M New Pt 45 Mins Duplex Scan-extrem Veins; Comp Advance Directives Directive Yes / No Effective Date File Name No Information Encounters Encounter Description Practice Location Reason(s) For Visit Diagnoses Date Provider Providers Copied on Encounter [facility] [place], [address] [place] [address] Dr Stack [address], [place], [id number], [place] tel:[phone] [place] [place] No Information 4 Miguel ALBERTS RVT, MARY Montez. [address] [place] [address], [place], [id number], [place]. tel:[phone] [facility] [place], [address] [place] [address] Dr Stack [address] 1000D[place]ie [place], [id number], [place] tel:[phone] [facility] [place] Varicose veins of left lower extremity with other complication s 4 Anjelica Reeder. [address] [place] [address], [facility] [place], [id number], [place]. tel:[phone] Referring Provider: Korina FAJARDO, [address] [place] [address], [address]. tel:[phone] [facility], [address] [place] [address] Dr Stack [address], [place], [id number], [place] tel:[phone] [place] Encounter for follow-up examination after completed treatment for conditions other than malignant nePain in left leg 4 Miguel ALBERTS RVT, MARY Montez. [address] [place] [address], [place], [id number], [place]. tel:[phone] Referring Provider: Korina FAJARDO, [facility] [place], [address]. tel:[phone] [facility], [address] [place] [address] Dr Stack 1000[address] 1000Dottie [place], [id number], [place] tel:[phone] [place] Varicose veins of left lower extremity with other complication s 4 Miguel ALBERTS RVT, MARY Montez. [address] [place] [address], [place], [place], [id number], [place]. tel:[phone] Referring Provider: Korina FAJARDO, [address] [place] [address], [facility]. tel:[phone] Office/Outpt E&M Established 15 Mins- CT & [place] [facility], [address] [place] [address] Dr Stack 1000Suite Dottie Greer [place], [id number], [place] tel:[phone] [facility] [place] Pruritus, unspecifiedV aricose veins of left lower extremity with other complication sLocalized edemaCramp and spasmRestles s legs syndrome 4 Miguel ALBERTS RVT, MARY Montez. [address] [place] [address], [facility] [place], [id number], [place]. tel:[phone] Referring Provider: Korina FAJARDO, [address] [place] [address], [facility]. tel:[phone] [facility], [address] [place] [address] Dr Stack 1000SuDottie hodge [place], [id number], [place] tel:[phone] [facility] [place] Encounter for follow-up examination after completed treatment for conditions other than malignant neChronic venous hypertension (idiopathic) with other complication s of bilateral lower extremity 4 Miguel ALBERTS RVT, MARY Montez. [address] [place] [address], [facility] [place], [id number], [place]. tel:[phone] Referring Provider: Korina FAJARDO, [address] [place] [address], [facility]. tel:[phone] [facility], [address] [place] [address] Dr Stack 1000Suite 1000Dottie [place], [id number], [place] tel:[phone] CVR [facility] Encounter for follow-up examination after completed treatment for conditions other than malignant neoplasmVari cose veins of left lower extremity with pain 4 Elizabeth Beth. [address], [address], [place], [place], [id number], [place]. tel:[phone] Referring Provider: Korina FAJARDO, [address] [place] [address], [address]. tel:[phone] [facility], [address] [place] [address] [facility] [address] [facility] [place], [id number], [place] tel:[phone] CVR [facility] Varicose veins of left lower extremity with other complication s 4 Miguel ALBERTS RVT, MARY Montez. [address] [place] [address], [place], [id number], [place]. tel:[phone] Referring Provider: Korina FAJARDO, [address] [place] [address], [address]. tel:[phone] [facility], [address] [place] [address] [facility] 1000Suite Dottie Greer [place], [id number], [place] tel:[phone] [facility] No Information 4 Miguel ALBERTS RVT, MARY Montez. [address] [place] [address], [place], [id number], [place]. tel:[phone] [facility], [address] [place] [address] Dr Stack 1000Suite 1000Dottie [place], [id number], [place] tel:[phone] CVR - [facility] Encounter for follow-up examination after completed treatment for conditions other than malignant neoplasmChro savi venous hypertension (idiopathic) with other complication s of right lower extremity 4 Miguel ALBETRS RVT, MARY Montez. [address] [place] [address], [place], [id number], [place]. tel:[phone] Referring Provider: Korina FAJARDO, [address] [place] [address], [facility]. tel:[phone] [facility] [place], [address] [place] [address] Dr Stack 1000SuDottie hodge [place], [id number], [place] tel:[phone] CVR - [facility] Varicose veins of right lower extremity with other complication s 4 Miguel ALBERTS RVT, MARY Montez. [address] [place] [address], [facility], [place], [id number], [place]. tel:[phone] Referring Provider: Korina FAJARDO, [address] [place] [address], [facility]. tel:[phone] [facility] [place], [address] [place] [address] Dr Stack 1000Dottie hodge [place], [id number], [place] tel:[phone] CVR [facility] Encounter for follow-up examination after completed treatment for conditions other than malignant neVaricose veins of right lower extremity with pain 4 Miguel ALBERTS RVT, RPVI Robert. [address] [place] [address], [facility], [place], [id number], [place]. tel:[phone] Referring Provider: Korina FAJARDO, [address] [place] [address], [facility]. tel:[phone] [facility], [address] [place] [address] Dr Stack 1000SuDottie hodge MD, [id number], [place] tel:[phone] CVR - [facility] No Information 4 Miguel ALBERTS RVT, MARY Montez. [address] [place] [address], [facility] [place], [place], [id number], [place]. tel:[phone] [facility], [address] [place] [address] Dr Stack 1000SuDottie hodge [place], [id number], [place] tel:[phone] CVR - [facility] Chronic venous hypertension (idiopathic) with inflammation of right lower extremity 4 Miguel ALBERTS RVT, MARY Montez. [address] [place] [address], [place], [place], [id number], . tel:[phone] Referring Provider: Korina FAJARDO, [address] [place] [address], [address]. tel:[phone] Offic/outpt E&m Estab 5 Min Trial- Telemedicine CT & [place] [facility], [address] [place] [address] Dr Stack 1000Suite Dottie Greer [place], [id number], [place] tel:[phone] [place] - [place] Localized edemaCramp and spasmRestles s legs syndromeVeno us insufficienc y (chronic) (peripheral) Pruritus, unspecified Feb- 4 Dayo Camarillo. [address] [place] [address], [place], [place], [id number], [place]. tel:[phone] Referring Provider: Korina FAJARDO, [address] [place] [address], [address]. tel:[phone] Office/Oupt E&M New Pt 45 Mins [facility], [address] [place] [address] Dr Stack 1000Suite Dottie Greer [place], [id number], [place] tel:[phone] [facility] [place] Varicose veins of bilateral lower extremities with other complication Jarrod in right lower legPain in left lower legPain in right legRestless legs syndromePrur itus, unspecifiedP ain in left legCramp and spasmLocaliz ed edema 4 Miguel ALBERTS, RVT, MARY Montez. [address] [place] [address], [place], [place], [id number], [place]. tel:[phone] Referring Provider: LIS PHILLIPS MD MPH R, [address], [place], [address]. tel:[phone] [facility], [address] [place] [address] Dr Stack 1000SuDottie hodge [place], [id number], [place] tel:[phone] CVR - [facility] Chronic venous hypertension (idiopathic) with other complication s of bilateral lower extremity 4 Miguel ALBERTS, RVT, MARY Montez. [address], [address], [place], [id number], [place]. tel:[phone] Referring Provider: Korina JIANGP, [address] [place], [address]. tel:[phone] Family History Family Member Type Diagnosis Age At Onset No Information Payers Payer name Insurance type Covered democrat ID Anny ramirez(s) [facility] [id number] Social History Type Description Quantity Date Captured Comments Alcohol Use Details Unknown Caffeine Use Details Unknown Tobacco Use Status No Information Smoking Status No Information Sex Female Chief Complaint And Reason For Visit No Information Reason For Referral Reason For Referral No Information Plan Of Treatment Date Type Action Status Goal Diet education completed Goal Tobacco cessation counseling completed Goal Tobacco cessation counseling completed Goal Diet education completed Goal Tobacco cessation counseling completed Referral Ordered: Weight management: Referral to physician timeframe: 3 Months (related to Body mass index (BMI) 40.0-44.9, adult) ordered Referral Ordered: Weight management: Referral to physician timeframe: 3 Months (related to Body mass index (BMI) 40.0-44.9, adult) ordered History Of Present Illness Encounter Date Complaint History Of Prese nt Illness No Information Functional Status Date Functional Assessmen t No Information Instructions Date Instruction Additional Infor mation Diet education Related to Body mass index (BMI) 40.0-44.9, adult Giving Encouragement to exercise Related to Body mass index (BMI) 40.0-44.9, adult Lifestyle education Related to B veronica mass index (BMI) 40.0-44.9, adult Pre and post instruc tions reviewed and provided Related to Varicose veins of left lower extremity with other complications Patient education booklet given Related to Varicose veins of left lower extremity with other complications Compression stocking usage as conservative measure Related to Localized edema Patient education booklet given Related to Localized edema Giving Encouragement to exercise Related to Body mass index (BMI) 40.0-44.9, adult Diet education Related to Body mass index (BMI) 40.0-44.9, adult Compression stocking usage as conservative measure Related to Varicose veins of bilateral lower extremities with other complications Patient education booklet given Related to Varicose veins of bilateral lower extremities with other complications Lifestyle education Related to B veronica mass index (BMI) 40.0-44.9, adult Assessments Type Assessment Date No Information Patient Care Teams Name Effective Dates (start - stop) Status Members No Information
--- OUTSIDE RECORDS SUMMARY | 2024-10-11 05:30 | XMS_ITS ---
Author Organization [facility] Clarisa Cruz Address [address] [facility] [place] Cruz [address] Care Team Providers Care Ceramic Mold Designer Name Role Phone Wil ALBERTS, Annalee Justice Primary Care Provider Un available Kevin Crowder Unavailable [phone] Isabelle Schmid Unavailable [phone] Allergies Allergen (clinical drug ingredient) Drug/Non Drug [...] No Encounters Encounter Location Date Provider Diagnosis [facility] [place] [address] [place] [address] 10/11/2024 Isabelle Schmid Plan Of Treatment Next Appt Details Provider Name:Kevin Crowder , 11/04/2025 11:15:00 AM, [address] [facility], [place], [address], Progress Notes * Loan DOWNEYB:1955 (70 yo F)Acc No.[id number]:10/11/2024 Progress Notes Patient: Davida SOL Provider: Piper Schmid DPM :1955 A ge:69 Y S ex:Female Date:10/11/2024 Address:[address] [place], [place] [phone] Pcp:Zachery Giordano Subjective: * Chief Complaints: * [...] enies. C ardiovascular: Pacemaker d enies. M HEALTH SAFETY AND ENVIRONMENT MANAGER d enies. W PW d enies. C [...] Date: 12/11/2023 Generated for Елена linda/Kallie/Juancarlos on: 12/18/2024 03:10 PM EST
--- OUTSIDE RECORDS SUMMARY | 2024-12-16 08:00 | XMS_ITS ---
Author Organization [facility] Address [address] [place] [address] Care Team Providers Care Shag Truck Driver Name Role Phone Wil ALBERTS, Annalee Justice Primary Care Provider Un available Kevin Crowder Unavailable [phone] Isabelle Schmid [phone] REASON FOR VISIT sooner appt Encounters Encounter Location Date Provider Diagnosis [facility] [address] [place] [address] 12/16/2024 Isabelle Schmid Plan Of Treatment Next Appt Details Provider Name:Kevin Crowder , 11/04/2025 11:15:00 AM, [address] [place], [address], Progress Notes * Donald RUIZaDOB:1955 (70 yo F)Acc No.[id number]:12/16/2024 Progress Notes Patient: Davida SOL Provider: Piper Schmid DPM :1955 A ge:69 Y S ex:Female Date:12/16/2024 Address:[address] [place] [address] Pcp:Zachery Giordano Subjective: * Chief Complaints: * [...] 0 12/16/2024 Generated for Елена Suazo/Juancarlos on: 12/18/2024 03:10 PM EST
--- OUTSIDE RECORDS SUMMARY | 2025-06-17 08:30 | XMS_ITS ---
Author Organization [facility] Address [address] [place] [address] Care Team Providers Care Stummel Selector Name Role Phone Wil ALBERTS, Annalee Justice Primary Care Provider Un available Kevin Crowder Unavailable [phone] Allergies Allergen (clinical drug ingredient) Drug/Non Drug Allergy documented on EMR Reaction Allergy Type Onset Date Status codeine Codeine Unknown Drug Allergy Active Latex Latex Unknown Allergy Active Substance with sulfonamide structure and antibacterial mechanism of action (substance) Sulfa Antibiotics rash Drug Allergy Active Medications Medication SIG (Take, Route, Frequency, Duration) Notes Start Date End Date Status Bumetanide 2 MG as directed Orally Active Gabapentin 300 MG 1 capsule Orally Onc e a day; Duration: 30 day(s) Active Spironolactone 25 MG 1 tablet Orally; Duration: 30 day(s) Not-Taking Keflex 500 500 MG 1 capsule Orally anushka ry 12 hrs; Duration: 10 day(s) 03/21/2021 Not-Edd ing Warfarin Sodium 5 MG 1 tablet Orally Onc e a day; Duration: 30 days Active Warfarin Sodium 2.5 MG 1 tablet Orally O nce a day Active Amiodarone HCl 200 MG 1 tablet Orally On ce a day; Duration: 30 days Active Encounters Encounter Location Date Provider Diagnosis [facility] [address] [place] [address] 06/17/2025 Kevin Crowder Plan Of Treatment Next Appt Details Provider Name:Kevin Crowder , 11/04/2025 11:15:00 AM, [address] [place], [address], Progress Notes * Donald DOWNEYaDOB:1955 (70 yo F)Acc No.[id number]:06/17/2025 Progress Note Patient: Davida SOL Provider: Rebecca Crowder DPM :1955 A ge:69 Y S ex:Female Date:06/17/2025 Address:[address] [place] [address] Pcp:Zachery Giordano Subjective: * Chief Complaints: * * Medical History: B ack,Hip,and Knee pain, Broken bones, Diverticulosis, Headaches/Migraines, Poor circulation, Vascular phlebitis (clots), Measles, Chicken pox, Arthritis, Heart disease, Kidney disease, Sciatica, Restless leg syndrome. * Medications: T aking Warfarin Sodium 2.5 MG Tablet 1 tablet Orally Once a day , Taking Amiodarone HCl 200 MG Tablet 1 tablet Orally Once a day , Taking Bumetanide 2 MG Tablet as directed Orally , Taking Gabapentin 300 MG Capsule 1 capsule Orally Once a day , Taking Warfarin Sodium 5 MG Tablet 1 tablet Orally Once a day , Not-Taking/PRN Spironolactone 25 MG Tablet 1 tablet Orally , Not-Taking/PRN Keflex 500 500 MG Capsule 1 capsule Orally every 12 hrs * Allergies: S ulfa Antibiotics: rash, Codeine, Latex. Objective: * Vitals: Assessment: Plan: * Treatment: * Images: * The named appointment provid er may or may not be the originator of this progress note, and it is not deemed complete until electronically signed by the appointment provider. Sign off status: Pending * Provider: Rebecca Crowder DPM Date: 0 06/17/2025 Generated for Елена linda/Kallie/Juancarlos on: 12/18/2024 03:10 PM EST
--- OUTSIDE RECORDS SUMMARY | 2025-08-12 06:00 | XMS_ITS ---
Author Organization [facility] Address [address] [place] [address] Care Team Providers Care Qc Tech Name Role Phone Wil ALBERTS, Annalee Justice Primary Care Provider Un available Kevin Crowder Unavailable [phone] Allergies Allergen (clinical drug ingredient) Drug/Non Drug [...] Active Encounters Encounter Location Date Provider Diagnosis [facility] [address] [place] [address] 08/12/2025 Kevin Crowder Plan Of Treatment Next Appt Details Provider Name:Kevin Crowder , 11/04/2025 11:15:00 AM, [address] [place], [address], Progress Notes * Donald DOWNEYaDOB:1955 (70 yo F)Acc No.[id number]:08/12/2025 Progress Note Patient: Davida SOL Provider: Rebecca Crowder DPM :1955 A ge:69 Y S ex:Female Date:08/12/2025 Address:[address] [place] [address] Pcp:Zachery Giordano Subjective: * Chief Complaints: * [...] 0 08/12/2025 Generated for Елена linda/Kallie/Juancarlos on: 12/18/2024 03:10 PM EST
--- NOTE | ~2025-10-18 | US_ITS ---
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 TECHNIQUE: Color flow triplex imaging and compression Doppler was performed to evaluate both the deep and the superficial systems bilaterally. To evaluate the superficial system, the examination was performed in the upright position. Color-flow Doppler ultrasound and compression ultrasound were utilized. In addition, maneuvers were utilized to demonstrate reflux. FINDINGS: 1. DEEP VENOUS ULTRASOUND OF THE RIGHT LOWER EXTREMITY: Common Femoral Vein: Compressible, normal respiratory variation and augmented flow. Femoral Vein: Compressible, normal color flow and augmentation. Popliteal Vein: Compressible, normal augmentation. Deep Reflux: There is no evidence of reflux in the deep system in either the common femoral vein, superficial femoral or the popliteal vein. 2. SUPERFICIAL ULTRASOUND WITH DOPPLER OF RIGHT LOWER EXTREMITY: GREAT SAPHENOUS VEIN: Saphenofemoral Junction: 1.2 cm; Reflux: 0 ms Proximal Thigh: 0.7 cm; Reflux: 0 ms Mid Thigh: 0.2 cm; Reflux: 0 ms Distal Thigh: Not seen At Knee: Not seen Below Knee/Proximal Calf: Not seen Mid Calf: 0.1 cm; Reflux: 0 ms Ankle/Distal Calf: 0.3 cm; Reflux: 0 ms Lateral / Medial accessory GREAT SAPHENOUS VEIN: Not seen SMALL SAPHENOUS VEIN: Drainage: Popliteal vein Saphenopopliteal Junction: 0.7 cm; Reflux: 0 ms Mid calf: 0.4 cm; Reflux: 0 ms Distal: 0.3 cm; Reflux: 0 ms VEIN OF GIACOMINI: Size: NA cm Reflux: NA ms PERFORATORS: Location: Small saphenous vein into varicosity off popliteal, mid calf Size: 0.3 cm Reflux: 0 ms Location: Greater saphenous vein into varicosity, distal calf Size: 0.3 cm Reflux: 0 ms VARICOSITIES > 3mm: Location: Small saphenous vein, midcalf Size: 0.3 cm Reflux: 0 ms Location: Small saphenous vein, midcalf Size: 0.4 cm Reflux: 0 ms Location: Great saphenous vein, midthigh Size: 0.4 cm Reflux: 0 ms Location: Great saphenous vein, midthigh Size: 0.3 cm Reflux: 3350 ms Location: Great saphenous vein, distal thigh Size: 0.4 cm Reflux: 0 ms Location: Great saphenous vein, midcalf Size: 0.3 cm Reflux: 0 ms Location: Great saphenous vein, distal calf Size: 0.3 cm Reflux: 0 ms 3. DEEP VENOUS ULTRASOUND OF THE LEFT LOWER EXTREMITY: Common Femoral Vein: Compressible, normal respiratory variation and augmented flow. Femoral Vein: Compressible, normal color flow and augmentation. Popliteal Vein: Compressible, normal augmentation. Deep Reflux: There is no evidence of reflux in the deep system in either the common femoral vein, superficial femoral or the popliteal vein. 4. SUPERFICIAL ULTRASOUND WITH DOPPLER OF LEFT LOWER EXTREMITY: GREAT SAPHENOUS VEIN: Saphenofemoral Junction: 1.4 cm; Reflux: 0 ms Proximal Thigh: 0.9 cm; Reflux: 0 ms Mid Thigh: Not seen Distal Thigh: Not seen At Knee: Not seen Below Knee/Proximl calf: Not seen Mid Calf, possibly visualized: 0.5 cm; Reflux: 0 ms Distal Calf/Ankle, possibly visualized: 2.4 cm; Reflux: 0 ms Lateral / Medial accessory GREAT SAPHENOUS VEIN: None seen SMALL SAPHENOUS VEIN: Drainage: Popliteal vein Saphenopopliteal Junction: 0.5 cm; Reflux: 0 ms Mid calf: 0.3 cm; Reflux: 0 ms Distal calf: 0.3 cm; Reflux: 0 ms VEIN OF GIACOMINI: Size: NA Reflux: NA PERFORATORS: None imaged VARICOSITIES > 3mm: Location: Small saphenous vein, proximal calf Size: 0.3 cm Reflux: 0 ms Location: Small saphenous vein, mid calf Size: 0.3 cm Reflux: 0 ms Location: Great saphenous vein, proximal thigh Size: 0.7 cm Reflux: 2650 ms Location: Great saphenous vein, midthigh Size: 0.8 cm Reflux: 2475 ms Location: Great saphenous vein, distal thigh Size: 0.5 cm Reflux: 2570 ms Location: Great saphenous vein, at knee Size: 0.5 cm Reflux: 1800 ms Location: Great saphenous vein, proximal calf Size: 0.4 cm Reflux: 0 ms Location: Great saphenous vein, distal calf Size: 0.4 cm Reflux: 0 ms US/US venous insuf bilat IMPRESSION: Right: Reflux was demonstrated in a great saphenous vein varicosity located in the mid thigh. Greater saphenous vein is not well demonstrated between mid thigh and below the knee raising suspicion of prior ablation. Left: Venous incompetence involving multiple varicosities in the thigh down to the level of the knee, as detailed above. Ablated great saphenous vein between mid thigh to below the knee. Electronically signed by: Carlos Negrete MD 10/18/2025 03:08 PM MATIAS
--- OUTSIDE RECORDS SUMMARY | 2025-10-18 15:10 | XMS_ITS | Clinical Summary ---
Author Organization [facility] Facility Address [address] [address] Care Team Providers Care Research Laboratory Technician Name Role Phone Dena Gore MD Primary Care Provider [phone] Allergies Active Allergy Reactions Criticality Noted Date [...] Friday for 14 days. Patient works at [employer] and would like a note for work [...] disease of the hips bilaterally, referral to [facility] orthopedics for consultation question management. The [...] prior to testing. Until then, can try nlru-nke-lahauao antihistamine such as generic versions of Margy, [...] [facility] Medicare [facility] Care Teams Research Laboratory Technician Relationship Specialty Start Date End Date Dena Gore MD [address] [place] [address] PCP - General Internal Medicine 03/13/22
--- OUTSIDE RECORDS SUMMARY | 2025-10-18 15:11 | XMS_ITS | Patient Health Record ---
Author Organization [facility] Clarisa Vangley Address [address] [place] [address] Care Team Providers Care Nozzle Cement Sprayer Helper Name Role Phone Wil ALBERTS, Annalee Justice Primary Care Provider Un available LakeshaKevin hill Unavailable [phone] SchmidIsabelle morris Unavailable [phone] Allergies Allergen (clinical drug ingredient) Drug/Non Drug [...] atherosclerosis of arteries of lower limbs (disorder) ([id number] ) Atherosclerosis of artery of both lower extremities (I70.203) Active confirmed Q7(A), Q8(2B), Q9(1B,2 C) Vital Signs Blood pressure diastolic 75 mm Hg 09/09/2025 Height 5ft 5in in 09/09/2025 Blood pressure systolic 125 mm Hg 09/09/2025 Weight 241 lbs 09/09/2025 BMI 40.1 kg/m2 09/09/2025 Procedures Procedure Date Ordered Date Performed Result Body Sit e 27343-UDGUSYK NAIL, 1-5 12/07/2024 N/A 66291-Paoacgmn Plate 12/07/2024 N/A 77471-PBVB SKIN LESIONS, 2 TO 4 12/07/2024 N/A Z5521-KLMLYLAC DYSTROPHIC NAILS ANY # 12/07/2024 N/A 48054-YXSHDUC NAIL, 1-5 03/15/2025 N/A 92306-Bkyhnudp Plate 03/15/2025 N/A 81728-PSEX SKIN LESIONS, 2 TO 4 03/15/2025 N/A T8714-HEATCGUM DYSTROPHIC NAILS ANY # 03/15/2025 N/A 26532-ZKQ 08/26/2025 N/A 07272-BZSFJLQ SKIN/TISSUE 09/09/2025 N/A Encounters Encounter Location Date Provider Diagnosis [facility] [place] [place] [address] 12/07/2024 Kevin Crowder Atherosclerosis of artery of [...] foot M19.071 and Ingrown nail L60.[address] [address] 03/15/2025 Kevin Crowder Atherosclerosis of artery of both lower extremities I70.203 ; Tinea unguium B35.1 ; Pain in right toe(s) M79.674 ; Pain in left toe(s) M79.675 ; 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 ; Osteoarthritis of midtarsal joint of right foot M19.071 and Ingrown nail L60.[address] [address] 08/26/2025 Kevin Crowder Ingrown nail L60.[address] [address] 09/09/2025 Kevin Crowder Skin ulcer of toe of left foot with fat layer exposed L97.[address] [address] 12/07/2024 [facility] [address] 06/17/2025 Kevin Crowder [address] [address] 08/08/2025 Kevin Crowder Assessments Encounter Date Diagnosis [...] X ray : Foot, right 3V 03/21/2021 40238-TXORNQR NAIL, 1-5 12/07/2024 69977-LDBTZTX NAIL, 1-5 03/15/2025 32135-Wpedixwj Plate 03/15/2025 33360-Rpuumiqi Plate 12/07/2024 79216-IJF 08/26/2025 52484-IWZQGYZ SKIN/TISSUE 09/09/2025 80630-RSFJ SKIN LESIONS, 2 TO 4 03/15/20 29473-HFJB SKIN LESIONS, 2 TO 4 12/07/19 D2358-HTENZEYP DYSTROPHIC NAILS ANY # N9246-IKNMSNNY DYSTROPHIC NAILS ANY # X ray : Ankle, right 3V 03/21/2021 Next Appt Details Provider Name:Kevin Randee Crowder , 11/04/2025 11:15:00 AM, [address] [place], [address], Insurance Providers Payer Name Payer Address Payer Phone Subscriber Number Group Number Insured Name Patient Relationship to Insured Coverage Start Date Coverage End Date Medicare National Govt [employer] [address] [place] [address] [id number] JoseDavida castano Self - patient is the insured [employer] [address] [place] [address] [phone] [id number] Davida Downey Self - patient is the [...]
== END ==
LOC: HO.CARD 11:25
PROVIDERS: PCP Internal Medicine; Visit Provider Surgery Vascular Surgery
DX: I83.12 Varicose veins of left lower extremity with inflammation (principal); I48.0 Paroxysmal atrial fibrillation
CPT/HCPCS: 93242; 93970

== ENCOUNTER → 2025-10-18 11:30 | Outpatient (BNV) | payer MEDICARE, SELFPAY | PROVIDERS: PCP Internal Medicine; Visit Provider Internal Medicine Cardiovascular Disease | DX: I49.1 Atrial premature depolarization (principal) | CPT/HCPCS: 93244 ==

== ENCOUNTER → 2025-10-18 13:10 | Outpatient (BNV) | payer MEDICARE, SELFPAY | PROVIDERS: PCP Internal Medicine; Visit Provider Radiology Diagnostic Radiology | DX: I83.12 Varicose veins of left lower extremity with inflammation (principal) | CPT/HCPCS: 93970 ==

== ENCOUNTER 2025-10-28 10:47 | Outpatient (AMB) | payer MEDICARE, SELFPAY ==
--- NOTE | 2025-10-28 11:04 | MHC.OFFVISCO ---
Intake Intake Visit Reasons: Anticoagulation Allergies Sulfa (Sulfonamide Antibiotics) (SULFA(SULFONAMIDE ANTIBIOTICS)) Allergy (Unknown, Verified 10/28/25 10:48) RASH codeine Adverse Reaction (Verified 10/28/25 10:48) Vomiting fentanyl Adverse Reaction (Verified 10/28/25 10:48) vomiting hydromorphone (From Dilaudid) Adverse Reaction (Verified 10/28/25 10:48) vomiting oxycodone Adverse Reaction (Verified 10/28/25 10:48) Gastrointestinal Upset Medication List - Last Reconciled 10/28/25 by Mirna Trejo RN amiodarone 200 mg PO DAILY ascorbate calcium (vitamin C) 500 mg PO DAILY bumetanide 1 mg (1/2 x 2 mg) PO DAILY cholecalciferol (vitamin D3) 10 mcg PO DAILY multivitamin 1 tab PO DAILY ropinirole 1 mg PO BID warfarin See Protocol 2.5 mg orally X5 DAYS/ 5MG X 2 DAYS ( and [facility]ANSON); Nursing Note INR: 2.5 in therapeutic range Medications and supplements reviewed No changes in health, diet, medications, or supplements, Denies any signs and symptoms of bleeding or bruising or clotting. Bleeding, bruising, clotting discussed Nutritional guidance given - Keep eating a mix of fruits and vegetables Dose: 5MG X 1 DAY/ 2.5MG X 6 DAYS F/U INR: 1 MONTH Patient verbalizes understanding of instructions given Anti-Coag Initial Assessment Social Hx Patient Tobacco Use Status: Never used Tobacco alcohol intake: never Coding Level of Care Code Est Patient Level 1 Diagnoses Current use of anticoagulant therapy Z79.01 Results AMB INR Fingerstick AMB INR Fingerstick 2.5 Last Edit by Mirna Trejo RN on 10/28/25 10:58 MANUAL ENTRY - FAILED INTERFACING Assessment & Plan Assessment & Plan (1) Current use of anticoagulant therapy: 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
[2025-10-28 12:08] LABS: Prothrombin Time Whole Bld POC 29.8 sec (11.1-13.5); ~PT, ~INR - Anti Coag Clinic 2.5 (0.9-1.1)
--- OUTSIDE RECORDS SUMMARY | 2025-10-28 13:09 | XMS_ITS | Clinical Summary ---
Author Organization [facility] Facility Address [address] [address] Care Team Providers Care X Ray Nurse Name Role Phone Dena Gore MD Primary Care Provider [phone] Allergies Active Allergy Reactions Criticality Noted Date [...] require that she be seen at the [facility] but she should definitely be quarantined since onset of her symptoms Friday for 14 days. Patient works at [employer] and would like a note for work [...] of the hips bilaterally, referral to [facility] orthopedics for consultation question management. [...] prior to testing. Until then, can try oqto-pnb-ezaholb antihistamine such as generic versions of Margy, [...] age to complete this topic Insurance Medicare [facility] Medicare [facility] Care Teams X Ray Nurse Relationship Specialty Start Date End Date Dena Gore MD 1960 [place] [address] PCP - General Internal Medicine 03/13/22
== END 2025-10-28 11:06 | disposition home or self-care (01) ==
LOC: HO.ACS 10:47
PROVIDERS: PCP Internal Medicine; Visit Provider Internal Medicine Medical Oncology
DX: Z79.01 Long term (current) use of anticoagulants (principal)

== ENCOUNTER → 2025-10-28 10:47 | Outpatient (BNVA) | payer MEDICARE, SELFPAY | PROVIDERS: PCP Internal Medicine; Visit Provider Internal Medicine Medical Oncology | DX: Z79.01 Long term (current) use of anticoagulants (principal) | CPT/HCPCS: 85610; 99211 ==

== ENCOUNTER 2025-11-10 14:03 | Outpatient (AMB) | payer MEDICARE, SELFPAY ==
--- OUTSIDE RECORDS SUMMARY | 2024-10-11 05:30 | XMS_ITS ---
Author Organization [facility] Clarisa Cruz Address [address] [facility] [place] [address] Care Team Providers Care Congregational Care Pastor Name Role Phone Wil ALBERTS, Annalee Justice Primary Care Provider Un available Kevin Crowder Unavailable [phone] Isabelle Schmid Unavailable [phone] Allergies Allergen (clinical drug ingredient) Drug/Non Drug [...] No Encounters Encounter Location Date Provider Diagnosis [facility] [place] [address] [place] [address] 10/11/2024 Isabelle Schmid Plan Of Treatment Next Appt Details Provider Name:Kevin Crowder , 02/14/2026 11:00:00 AM, [address] [facility], [place], [address], Progress Notes * Loan DOWNEYB:1955 (70 yo F)Acc No.[id number]:10/11/2024 Progress Notes Patient: Davida SOL Provider: Piper Schmid DPM :1955 A ge:69 Y S ex:Female Date:10/11/2024 Address:[address] [place], [place] [id number] Pcp:Zachery Giordano Subjective: * Chief Complaints: * [...] enies. C ardiovascular: Pacemaker d enies. M MANAGER FINE DINING d enies. W PW d enies. C [...] Date: 12/11/2023 Generated for Елена linda/Kallie/Juancarlos on: 01/11/2025 06:17 PM EST
--- OUTSIDE RECORDS SUMMARY | 2024-12-16 08:00 | XMS_ITS ---
Author Organization [facility] Address [address] [place] [address] Care Team Providers Care Stamping Machine Operator Name Role Phone Wil ALBERTS, Annalee Justice Primary Care Provider Un available Kevin Crowder Unavailable [phone] Isabelle Schmid [phone] REASON FOR VISIT sooner appt Encounters Encounter Location Date Provider Diagnosis [facility] [address] [place] [address] 12/16/2024 Isabelle Schmid Plan Of Treatment Next Appt Details Provider Name:Kevin Crowder , 02/14/2026 11:00:00 AM, [address] [place], [address], Progress Notes * Donald RUIZaDOB:1955 (70 yo F)Acc No.[id number]:12/16/2024 Progress Notes Patient: Davida SOL Provider: Piper Schmid DPM :1955 A ge:69 Y S ex:Female Date:12/16/2024 Address:[address] [place] [address] Pcp:Zachery Giordano Subjective: * Chief Complaints: * [...] 0 12/16/2024 Generated for Елена Suazo/Juancarlos on: 01/11/2025 06:17 PM EST
--- OUTSIDE RECORDS SUMMARY | 2025-06-17 08:30 | XMS_ITS ---
Author Organization [facility] Address [address] [place] [address] Care Team Providers Care Steam Frame Operator Name Role Phone Wil ALBERTS, Annalee Justice Primary Care Provider Un available Kevin Crowder Unavailable [phone] Allergies Allergen (clinical drug ingredient) Drug/Non Drug [...] Active Encounters Encounter Location Date Provider Diagnosis [facility] [address] [place] [address] 06/17/2025 Kevin Crowder Plan Of Treatment Next Appt Details Provider Name:Kevin Crowder , 02/14/2026 11:00:00 AM, [address] [place], [address], Progress Notes * Donald DOWNEYaDOB:1955 (70 yo F)Acc No.[id number]:06/17/2025 Progress Note Patient: Davida SOL Provider: Rebecca Crowder DPM :1955 A ge:69 Y S ex:Female Date:06/17/2025 Address:[address] [place] [address] Pcp:Zachery Giordano Subjective: * Chief Complaints: * [...] 0 06/17/2025 Generated for Елена linda/Kallie/Juancarlos on: 01/11/2025 06:17 PM EST
--- OUTSIDE RECORDS SUMMARY | 2025-08-12 06:00 | XMS_ITS ---
Author Organization [facility] Address [address] [place] [address] Care Team Providers Care President/Gm Production & Live Experiences Name Role Phone Wil ALBERTS, Annalee Justice Primary Care Provider Un available Kevin Crowder Unavailable [phone] Allergies Allergen (clinical drug ingredient) Drug/Non Drug Allergy documented on EMR Reaction Allergy Type Onset Date Status codeine Codeine Unknown Drug Allergy Active Latex Latex Unknown Allergy Active Substance with sulfonamide structure and antibacterial mechanism of action (substance) Sulfa Antibiotics rash Drug Allergy Active Medications Medication SIG (Take, Route, Frequency, Duration) Notes Start Date End Date Status Gabapentin 300 MG 1 capsule Orally Onc e a day; Duration: 30 day(s) Active Warfarin Sodium 5 MG 1 tablet Orally Onc e a day; Duration: 30 days Active Spironolactone 25 MG 1 tablet Orally; Duration: 30 day(s) Not-Taking Keflex 500 500 MG 1 capsule Orally anushka ry 12 hrs; Duration: 10 day(s) 03/21/2021 Not-Edd ing Bumetanide 2 MG as directed Orally Active Warfarin Sodium 2.5 MG 1 tablet Orally O nce a day Active Amiodarone HCl 200 MG 1 tablet Orally On ce a day; Duration: 30 days Active Encounters Encounter Location Date Provider Diagnosis [facility] [address] [place] [address] 08/12/2025 Kevin Crowder Plan Of Treatment Next Appt Details Provider Name:Kevin Crowder , 02/14/2026 11:00:00 AM, [address] [place], [address], Progress Notes * Donald DOWNEYaDOB:1955 (70 yo F)Acc No.[id number]:08/12/2025 Progress Note Patient: Davida SOL Provider: Rebecca Crowder DPM :1955 A ge:69 Y S ex:Female Date:08/12/2025 Address:[address] [place] [address] Pcp:Zachery Giordano Subjective: * Chief Complaints: * [...] Sign off status: Pending * Provider: Rebecca Corwder DPM Date: 0 08/12/2025 Generated for Елена linda/Kallie/Juancarlos on: 01/11/2025 06:17 PM EST
[2025-11-10 14:13] VITALS: BP 128/68; PULSE 63; RESP 16; TEMP 36.8; O2SAT 94; BMI 40.6
--- NOTE | 2025-11-10 14:13 | A.OFFPC_ITS ---
Vital Signs 11/10/25 14:13 Height 5 ft 5 in Weight 244 lb BMI 40.6 BP 128/68 Blood Pressure Location Rt brachial Position Sitting Respiration 16 Pulse 63 Pulse Source Pulse Oximeter Temp 98.3 F Temp Source Oral Pulse Oximetry (%) 94 Oxygen Delivery Method Room Air Intake Visit Reasons: Annual PE - see comments Intake Note: Pt is here today for her PE: last mammogram 10/17/25, bone density scan 10/20/24, colonoscopy 04/04/14 pt declined in 2022 Breakdown Person Required: No Allergies Sulfa (Sulfonamide Antibiotics) (SULFA(SULFONAMIDE ANTIBIOTICS)) Allergy (Unknown, Verified 11/19/25 02:18) RASH codeine Adverse Reaction (Verified 11/19/25 02:18) Vomiting fentanyl Adverse Reaction (Verified 11/19/25 02:18) vomiting hydromorphone (From Dilaudid) Adverse Reaction (Verified 11/19/25 02:18) vomiting oxycodone Adverse Reaction (Verified 11/19/25 02:18) Gastrointestinal Upset Medication List - Last Reconciled 11/10/25 by Annalee De La Torre MD amiodarone 200 mg PO DAILY ascorbate calcium (vitamin C) 500 mg PO DAILY bumetanide 1 mg (1/2 x 2 mg) PO DAILY cholecalciferol (vitamin D3) 10 mcg PO DAILY multivitamin 1 tab PO DAILY ropinirole 1 mg PO BID warfarin See Protocol 2.5 mg orally X5 DAYS/ 5MG X 2 DAYS (TH and HANSON); Tobacco use date assessed: 11/10/25 Fall risk assessment: No Falls in past year Last assessed Fall Risk: 11/10/25 Dental Screening Dental Screen Date: 11/10/25 Did you have a dental visit in the last 12 months?: Yes Did you have a dental problem in the last 6 months where you did not have access to dental care?: No Was dental information given to patient?: Patient has dentist HPI Annual PE - see comments HPI Details 70 year-old female with past medical his tory significant for DVT, paroxysmal atrial fibrillation on Coumadin, congestive heart failure with preserved ejection fraction, chronic venous insufficiency of bilateral lower extremities, obstructive sleep apnea on CPAP, chronic kidney disease, hyperlipidemia, osteoporosis, morbid obesity who presents today for her physical exam. Up-to-date with her breast cancer screening, with last mammogram done 10/17/2025 with benign findings. Had a bone density done 10/20/2024 which showed osteoporosis in lumbar spine and left femoral neck. He has been referred to see endocrine clinic, saw Dr. Piper chau who recommended an infusion of either Prolia or Evenity, which her insurance has approved, but the patient is uncertain about the [id number] cost. She currently takes vitamin D and calcium through her diet. . She had a screening colonoscopy done 04/04/[address] Dos Santos, was supposed to have a repeat colonoscopy done in 2019 but patient declined to have procedure done She reports weight gain since August, with her weight increasing from 238 lbs to a current weight of 241 lbs. She attributes this weight gain to ropinirole, though this is noted as an unlikely cause. The patient also notes a decrease in mobility following an injury and a habit of eating chips late at night. The patient has a history of intermittent atrial fibrillation, which is managed with amiodarone and warfarin. She reports associated symptoms of fatigue, feeling weird, dyspnea, and a prior episode of near-syncope, which she manages by halving her amiodarone dose. Due to concerns for long-term amiodarone toxicity, her master esthetician plans to discontinue the medication and is considering a cardiac ablation. She monitors her INR at a Coumadin clinic every three weeks, and her levels have recently stabilized after a period of being suboptimal. Gets occasional leg cramps, for which she takes ropinirole. Has obstructive sleep apnea, with use of her CPAP . She declines all vaccinations. [facility] Medical History Family history of breast cancer in first degree relative Rib pain on left side History of kidney stones Dyslipidemia Osteoporosis Impaired fasting glucose Vaccine refused by patient Elevated brain natriuretic peptide (BNP) level Anemia Morbid obesity Iliotibial band syndrome Lumbosacral radiculopathy due to osteoarthritis of spine History of deep vein thrombophlebitis of lower extremity Positive ALVIN (antinuclear antibody) CKD (chronic kidney disease) stage 3, GFR 30-59 ml/min Osteoarthritis of right ankle and foot Postmenopausal Venous insufficiency of both lower extremities Diverticulitis Peripheral vascular complication of surgical procedure Peripheral vascular disease Hyperlipidemia DVT (deep venous thrombosis) Diastolic heart failure Paroxysmal A-fib BERE (obstructive sleep apnea) Surgical History History of lithotripsy History of cardiac cath Hx of vascular surgery H/O hysterectomy for benign disease Family History Father Emphysema, unspecified Mother No problems noted. Brother Atrial fibrillation Sister Atrial fibrillation Sister Breast cancer Social History Household Members: None Housing: House Do you presently have visiting nurse or other home services: No Alcohol intake: never Patient Tobacco Use Status: Never used Tobacco e-Cigarette/Vaping Use: Never Used service: No Current occupational status: retired and disabled Current occupation: rt handed Cognitive needs: No Hearing needs: No Vision needs: Yes Questionnaire PHQ-9 Over the last 2 weeks, how often have you been bothered by any of the following problems? 1. Little interest or pleasure in doing things: not at all 2. Feeling down, depressed, or hopeless: not at all 3. Trouble falling or staying asleep, or sleeping too much: nearly every day 4. Feeling tired or having little energy: several days 5. Poor appetite or overeating: not at all 6. Feeling bad about yourself - or that you are a failure or have let yourself or your family down: not at all 7. Trouble concentrating on things, such as reading the newspaper or watching television: not at all 8. Moving or speaking so slowly that other people could have noticed. Or the opposite - being so fidgety or restless that you have been moving around a lot more than usual: not at all 9. Thoughts that you would be better off or of hurting yourself in some way: not at all Total score: 4 Depression Screening Interpretation: Negative Depression Screening Done: Yes Source: Developed by Drs. Tc Noonan, Janet Hinojosa, Isael Andrews and colleagues, with an educational tha from [employer]. Thrive Questionnaire Date Thrive assessed: 02/02/25 I am a: Patient What is your living situation today?: I have a steady place to live Within the past 12 months, did the food you bought not last and you didn't have the money to get more?: Sometimes True Within the past 12 months, did you worry whether your food would run out before you got money to buy more?: Sometimes True Do you have trouble paying for medicines?: No Do you have trouble getting transportation to medical appointments?: No Do you have trouble paying your heating and electricity bill?: No Do you have trouble taking care of your child, family member or friend?: No Do you have trouble with day-to-day activities such as bathing, preparing meals, shopping, managing finances, etc.?: No Are you currently unemployed and looking for a job?: No Are you interested in more education?: No Please select the resources that you would like help with: None Currently or been in a relationship where the following occur: No concerns reported THRIVE Score: 2 AUDIT C Alcohol Use Questionnaire (AUDIT-C) 1. How often do you have a drink containing alcohol?: Monthly or less 2. How many drinks containing alcohol do you have on a typical day when you are drinking?: 1 or 2 3. How often do you have six or more drinks on one occasion?: Never Total Score: 1 KELLEY-7 AMB Questionnaire KELLEY-7 Date KELLEY - 7 assessed: 02/02/25 Feeling nervous, anxious, or on edge: 0 = Not at all Not being able to stop or control worryin = Not at all Worrying too much about different things: 0 = Not at all Trouble relaxin = Not at all Being so restless that it is hard to sit still: 0 = Not at all Becoming easily annoyed or irritable: 0 = Not at all Feeling afraid as if something awful might happen: 0 = Not at all Total KELLYE-7 score (0-4 normal; 5-9 mild; 10-14 moderate; 15-21 severe): 0 Source: Developed by Drs. Tc Noonan, Janet Hinojosa, Isael Andrews and colleagues, with an educational tha from [employer]. Review of Systems Const Reports fatigue and Reports weakness Eyes Denies change in vision ENT Reports dizziness Card Denies chest pain, Denies chest pain at rest, Denies chest pain with activity, Denies rapid heart rate, Denies pedal edema, Denies edema, Denies leg edema, Denies lightheadedness, Denies palpitations, Denies dyspnea, Denies dyspnea on exertion and Denies orthopnea Resp Denies cough, Denies dyspnea and Denies dyspnea on exertion GI Denies hematochezia and Denies change in stool character Reports no additional complaints Musc Denies abnormal gait, Denies limited range of motion, Denies muscle cramps, Repo rts muscle weakness, Denies numbness, Denies radiating pain into limb, Denies stiffness and Denies tingling Skin/Breast Denies breast pain, Denies breast mass and Denies rash Neuro Denies abnormal gait, Reports dizziness, Denies numbness, Denies tingling and Reports weakness Psych Reports no additional complaints Endo Reports fatigue and Denies palpitations Tj/Lymph Reports no additional complaints Aller/Immun Reports no additional complaints Physical exam (Primary Care) Vital Signs: Last Vital Signs Temp 98.3 F 11/10/25 14:13 Pulse 63 11/10/25 14:13 Resp 16 11/10/25 14:13 BP 128/68 11/10/25 14:13 Pulse Ox 94 11/10/25 14:13 Oxygen Delivery Method Room Air 11/10/25 14:13 BMI result Body Mass Index 40.6 Tobacco/Smoking Status: Tobacco use Status Tobacco use date assessed 11/10/25 11/10/25 14:20 Patient Tobacco Use Status Never used Tobacco 11/10/25 14:20 e-Cigarette/Vaping Use Never Used 11/10/25 14:20 PHQ-9: PHQ-9 Score PHQ-9: Total score 4 11/19/25 02:35 Depression Screening Interpretation: Negative Thrive Assessment: Date of Thrive Assessment Date Thrive assessed 02/02/25 11/10/25 14:20 Currently or been in a relationship where the following occur: No concerns reported Const Other: Alert oriented x3, no acute distress noted ambulatory normal gait HENMT Head: Yes normocephalic Face and sinus: Yes face symmetric Mouth: moist mucous membranes Eyes General: appearance normal, both eyes and all related structures Neck Neck: Yes full ROM, Yes no lymphadenopathy and Yes supple Chest Chest palpation & inspection: normal inspection of the chest Breast/axilla palpation: normal palpation of the breasts Resp Effort & Inspection: normal respiratory effort and able to speak in complete se ntences Auscultation: clear to auscultation bilaterally Cardio Other: S1-S2 present regular rate and rhythm Peripheral pulses: popliteal pulses present, posterior tibial pulses present and dorsalis pedis present GI Palpation (GI): Soft to palpation, nontender, no guarding and no masses General: Yes no CVA tenderness Back/Spine/Pelvis Back: no CVA tenderness and No back tenderness Skin General skin exam: no rashes or lesions noted Neuro General: gait normal, tone normal, moves all extremities, Normal light touch and pain sensation and no focal motor deficits Extrem General: Yes full ROM, Yes no joint enlargement, Yes no clubbing, cyanosis or edema and Yes normal gait Psych Appearance: grossly normal and well kempt Mental Status: mental status grossly normal Speech and movement: Normal speech and movement present Affect: normal affect Coding Level of Care Code Est Pt Prev Care >65y(97930) Diagnoses Annual visit for general adult medical examination with abnormal findings Z00.01 BERE (obstructive sleep apnea) G47.33 Paroxysmal A-fib I48.0 Venous insufficiency of both lower extremities I87.2 CKD (chronic kidney disease) stage 3, GFR 30-59 ml/min N18.30 Vaccine refused by patient Z28.20 Impaired fasting glucose R73.01 Age-related osteoporosis without current pathological fracture M81.0 Osteoporosis type: age-related Presence of current pathological fracture: without current pathological fracture Assessment & Plan Assessment & Plan (1) Annual visit for general adult medical examination with abnormal findings: Code(s): Z00.01 - Encounter for general adult medical examination with abnormal findings Plan: Fasting blood work has been ordered to check a lipid panel, blood glucose, liver function, and vitamin D levels, which will be combined with a previous order for thyroid function tests. She had a screening colonoscopy done 04/04/[address] Dos Santos, was supposed to have a repeat colonoscopy done in 2019 but patient declined to have procedure don The patient continues to refuse vaccinations and was advised to wear a mask for protection. She will continue ropinirole as needed for leg cramps. Follow-up is scheduled in six months. (2) BERE (obstructive sleep apnea): Code(s): G47.33 - Obstructive sleep apnea (adult) (pediatric) Category: Medical Plan: Continue with CPAP (3) Paroxysmal A-fib: Code(s): I48.0 - Paroxysmal atrial fibrillation Category: Medical Plan: Currently on amiodarone 100 mg daily on chronic anticoagulation with Coumadin. Has an appointment to see Dr. Cyr who next year to discuss possible cardio ablation (4) Venous insufficiency of both lower extremities: Comment: 2018 - left GSV ablation 05/18/2021- status post left leg microphlebectomy Code(s): I87.2 - Venous insufficiency (chronic) (peripheral) Category: Medical Plan: Currently being followed by vascular surgeon (5) CKD (chronic kidney disease) stage 3, GFR 30-59 ml/min: Code(s): N18.30 - Chronic kidney disease, stage 3 unspecified Category: Medical Plan: Currently followed by Nephrology, stressed importance of avoiding use of NSAIDs (6) Vaccine refused by patient: Code(s): Z28.20 - Immunization not carried out because of patient decision for unspecified reason Category: Medical Plan: Patient does not want to get any of recommended vaccines offered on this visit (7) Impaired fasting glucose: Code(s): R73.01 - Impaired fasting glucose Category: Medical Plan: Your previous fasting blood sugars were elevated above 100 mg/dL. Impaired glucose metabolism increases the risk for developing diabetes mellitus type 2, as well as heart attack and stroke later on. Lifestyle changes that promotes weight loss, healthy eating habits, and regular exercise are important, and can prevent the progression to diabetes (8) Osteoporosis: Code(s): M81.0 - Age-related osteoporosis without current pathological fracture Category: Medical Qualifiers: Osteoporosis type: age-related Presence of current pathological fracture: without current pathological fracture Qualified Code(s): M81.0 - Age- related osteoporosis without current pathological fracture Plan: Currently followed by Dr. Villa, who recommended starting Evenity or Prolia infusion but patient hesitant to start any medications at present time. Stressed importance of doing regular weight-bearing exercise, taking adequate calcium from dietary sources and taking cholecalciferol at least 2000 units daily Orders: Orders Lipid Panel 11/14/25 Annalee De La Torre MD I48.0 - Paroxysmal atrial fibrillation, I87.2 - Venous insufficiency (chronic) (peripheral), Z79.899 - Other technician terminal and repeater (current) drug therapy, R73.01 - Impaired fasting glucose, M81.0 - Age-related osteoporosis without current pathological fracture, R79.89 - Other specified abnormal findings of blood chemistry, E66.01 - Morbid (severe) obesity due to excess calories, N18.30 - Chronic kidney disease, stage 3 unspecified, Z28.20 - Immunization not carried out because of patient decision for unspecified reason, G47.33 - Obstructive sleep apnea (adult) (pediatric), Z00.01 - Encounter for general adult medical examination with abnormal findings Aspartate Amino Transferase 11/14/25 Annalee De La Torre MD I48.0 - Paroxysmal atrial fibrillation, I87.2 - Venous insufficiency (chronic) (peripheral), Z79.899 - Other technician terminal and repeater (current) drug therapy, R73.01 - Impaired fasting glucose, M81.0 - Age-related osteoporosis without current pathological fracture, R79.89 - Other specified abnormal findings of blood chemistry, E66.01 - Morbid (severe) obesity due to excess calories, N18.30 - Chronic kidney disease, stage 3 unspecified, Z28.20 - Immunization not carried out because of patient decision for unspecified reason, G47.33 - Obstructive sleep apnea (adult) (pediatric), Z00.01 - Encounter for general adult medical examination with abnormal findings Vitamin D 25-OH Total 11/14/25 Annalee De La Torre MD I48.0 - Paroxysmal atrial fibrillation, I87.2 - Venous insufficiency (chronic) (peripheral), Z79.899 - [facility] [place] [facility] (current) drug therapy, R73.01 - Impaired fasting glucose, M81.0 - Age-related osteoporosis without current pathological fracture, R79.89 - Other specified abnormal findings of blood chemistry, E66.01 - Morbid (severe) obesity due to excess calories, N18.30 - Chronic kidney disease, stage 3 unspecified, Z28.20 - Immunization not carried out because of patient decision for unspecifie d reason, G47.33 - Obstructive sleep apnea (adult) (pediatric), Z00.01 - Encounter for general adult medical examination with abnormal findings Hemoglobin A1c 11/14/25 Annalee De La Torre MD I48.0 - Paroxysmal atrial fibrillation, I87.2 - Venous insufficiency (chronic) (peripheral), Z79.899 - Other technician terminal and repeater (current) drug therapy, R73.01 - Impaired fasting glucose, M81.0 - Age-related osteoporosis without current pathological fracture, R79.89 - Other specified abnormal findings of blood chemistry, E66.01 - Morbid (severe) obesity due to excess calories, N18.30 - Chronic kidney disease, stage 3 unspecified, Z28.20 - Immunization not carried out because of patient decision for unspecified reason, G47.33 - Obstructive sleep apnea (adult) (pediatric), Z00.01 - Encounter for general adult medical examination with abnormal findings Basic Metabolic Panel Fasting 11/14/25 Annalee De La Torre MD I48.0 - Paroxysmal atrial fibrillation, I87.2 - Venous insufficiency (chronic) (peripheral), Z79.899 - Other technician terminal and repeater (current) drug therapy, R73.01 - Impaired fasting glucose, M81.0 - Age-related osteoporosis without current pathological fracture, R79.89 - Other specified abnormal findings of blood chemistry, E66.01 - Morbid (severe) obesity due to excess calories, N18.30 - Chronic kidney disease, stage 3 unspecified, Z28.20 - Immunization not carried out because of patient decision for unspecified reason, G47.33 - Obstructive sleep apnea (adult) (pediatric), Z00.01 - Encounter for general adult medical examination with abnormal findings Alanine Aminotransferase 11/14/25 Annalee De La Torre MD I48.0 - Paroxysmal atrial fibrillation, I87.2 - Venous insufficiency (chronic) (peripheral), Z79.899 - Other technician terminal and repeater (current) drug therapy, R73.01 - Impaired fasting glucose, M81.0 - Age-related osteoporosis without current pathological fracture, R79.89 - Other specified abnormal findings of blood chemistry, E66.01 - Morbid (severe) obesity due to excess calories, N18.30 - Chronic kidney disease, stage 3 unspecified, Z28.20 - Immunization not carried out because of patient decision for unspecified reason, G47.33 - Obstructive sleep apnea (adult) (pediatric), Z00.01 - Encounter for general adult medical examination with abnormal findings Complete Blood Count Auto Diff 11/14/25 Annalee De La Torre MD I48.0 - Paroxysmal atrial fibrillation, I87.2 - Venous insufficiency (chronic) (peripheral), Z79.899 - [facility] [place] (current) drug therapy, R73.01 - Impaired fasting glucose, M81.0 - Age-related osteoporosis without current pathological fracture, R79.89 - Other specified abnormal findings of blood chemistry, E66.01 - Morbid (severe) obesity due to excess calories, N18.30 - Chronic kidney disease, stage 3 unspecified, Z28.20 - Immunization not carried out because of patient decision for unspecified reason, G47.33 - Obstructive sleep apnea (adult) (pediatric), Z00.01 - Encounter for general adult medical examination with abnormal findings Medications: Changed From amiodarone 1/2 tablet po qd 200 mg PO DAILY To amiodarone 1/2 tablet po qd 100 mg PO DAILY Bernard Butterfield MD
--- OUTSIDE RECORDS SUMMARY | 2025-11-10 18:18 | XMS_ITS | Patient Health Record ---
Author Organization [facility] Clarisa flores [place] Address [address] [place] [address] Care Team Providers Care Director Of Business Systems Name Role Phone Wil ALBERTS, Annalee Justice Primary Care Provider Un available LakeshaKevin hill Unavailable [phone] SchmidThaniaIsabelle Unavailable [phone] Allergies Allergen (clinical drug ingredient) Drug/Non Drug [...] before bedtime Orally Once a day Active Keflex 500 500 MG 1 capsule Orally anushka ry 12 hrs; Duration: 10 day(s) 03/21/2021 Not-Edd ing Spironolactone 25 MG 1 tablet Orally; Duration: 30 day(s) Not-Taking Gabapentin 300 MG 1 capsule Orally Onc e a day; Duration: 30 day(s) Not-Edd ing Warfarin Sodium 5 MG 1 tablet Orally Onc e a day; Duration: 30 days Active Immunizations Vaccine Route Administration Date Status Comme nts Influenza Unknown 11/04/2025 Refused Social History Tobacco Use: Social History Observation [...] atherosclerosis of arteries of lower limbs (disorder) (60163799801319985 ) Atherosclerosis of artery of both lower extremities (I70.203) Active confirmed Q7(A), Q8(2B), Q9(1B,2 C) Vital Signs Blood pressure diastolic 74 mm Hg 11/04/2025 Height 5ft5in in 11/04/2025 Blood pressure systolic 123 mm Hg 11/04/2025 Weight 240 lbs 11/04/2025 BMI 39.93 kg/m2 11/04/2025 Procedures Procedure Date Ordered Date Performed Result Body Sit e 40409-RWQITJF NAIL, 1-5 12/07/2024 N/A 26378-Cixitttz Plate 12/07/2024 N/A 74803-XCJK SKIN LESIONS, 2 TO 4 12/07/2024 N/A Z8846-GNVFBBAE DYSTROPHIC NAILS ANY # 12/07/2024 N/A 83066-GVUFQMJ NAIL, 1-5 03/15/2025 N/A 26895-Ktdzmqkg Plate 03/15/2025 N/A 85989-FRDV SKIN LESIONS, 2 TO 4 03/15/2025 N/A U3670-VIAKAESB DYSTROPHIC NAILS ANY # 03/15/2025 N/A 81973-CUS 08/26/2025 N/A 13699-PJVPCHK SKIN/TISSUE 09/09/2025 N/A 09397- Debride <25 sq cm 11/04/2025 N/A Encounters Encounter Location Date Provider Diagnosis [facility] [address] [place] [address] 12/07/2024 Kevin Crowder Atherosclerosis of artery of [...] right foot M19.071 and Ingrown nail L60.[address] [address] 03/15/2025 Kevin Crowder Atherosclerosis of artery of both lower extremities I70.203 ; Tinea unguium B35.1 ; Pain in right toe(s) M79.674 ; Pain in left toe(s) M79.675 ; 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..] CARE INSTRUCTIONS. pdf (WOUND CARE INSTRUCTIONS. pdf) 11/04/2025 Skin ulcer of toe of left foot, limited to breakdown of skin (ICD-10 - L97.521) Patient Educated with: WOUND CARE INSTRUCTIONS. pdf [...] X ray : Foot, right 3V 03/21/2021 76025-HOAVLKI NAIL, 1-5 12/07/2024 30196-GGQCCUM NAIL, 1-5 03/15/2025 65737-Sqhbytjn Plate 03/15/2025 19643-Pzlvibvy Plate 12/07/2024 76258-OGZ 08/26/2025 28776- Debride <25 sq cm 11/04/2025 95579-PNZJGHD SKIN/TISSUE 09/09/2025 19168-UUTX SKIN LESIONS, 2 TO 4 03/15/20 25 90772-OMEX SKIN LESIONS, 2 TO 4 12/07/19 25 O7153-CJOAVIRB DYSTROPHIC NAILS ANY # R8869-CCVECGVW DYSTROPHIC NAILS ANY # X ray : Ankle, right 3V 03/21/2021 Next Appt Details Provider Name:Kevin Crowder , 02/14/2026 11:00:00 AM, [address] [facility], [place], [address], Insurance Providers Payer Name Payer Address Payer Phone Subscriber Number Group Number Insured Name Patient Relationship to Insured Coverage Start Date Coverage End Date Medicare [facility] [employer] [address] [facility] [place] [address] [id number] Davida Downey Self - patient is the insured [employer] [address] [place] [address] [phone] [id number] Davida Downey Self - patient is the [...]
--- OUTSIDE RECORDS SUMMARY | 2025-11-10 18:18 | XMS_ITS | Clinical Summary ---
Author Organization [facility] Facility Address [address] [address] Care Team Providers Care Integrated Specialist Name Role Phone Dena Gore MD Primary Care Provider [phone] Allergies Active Allergy Reactions Criticality Noted Date [...] require that she be seen at the [facility] but she should definitely be quarantined since onset of her symptoms Friday for 14 days. Patient works at [employer] and would like a note for work [...] disease of the hips bilaterally, referral to [facility] orthopedics for consultation question management. The [...] prior to testing. Until then, can try sgmp-inn-obngvng antihistamine such as generic versions of Margy, [...] [facility] Medicare [facility] Care Teams Integrated Specialist Relationship Specialty Start Date End Date Dena Gore MD [address] [place] [address] PCP - General Internal Medicine 03/13/22
== END 2025-11-10 14:55 | disposition home or self-care (01) ==
LOC: HO.HMCC 14:04
PROVIDERS: PCP Internal Medicine; Visit Provider Internal Medicine
DX: Z00.01 Encounter for general adult medical examination with abnormal findings (principal); I48.0 Paroxysmal atrial fibrillation; N18.30 Chronic kidney disease, stage 3 unspecified; G47.33 Obstructive sleep apnea (adult) (pediatric); I87.2 Venous insufficiency (chronic) (peripheral); R73.01 Impaired fasting glucose; M81.0 Age-related osteoporosis without current pathological fracture; Z28.20 Immunization not carried out because of patient decision for unspecified reason; Z79.01 Long term (current) use of anticoagulants

== ENCOUNTER → 2025-11-10 14:03 | Outpatient (BNVA) | payer MEDICARE, SELFPAY | PROVIDERS: PCP Internal Medicine; Visit Provider Internal Medicine | DX: Z00.01 Encounter for general adult medical examination with abnormal findings (principal); G47.33 Obstructive sleep apnea (adult) (pediatric); I48.0 Paroxysmal atrial fibrillation; I87.2 Venous insufficiency (chronic) (peripheral); N18.30 Chronic kidney disease, stage 3 unspecified; R73.01 Impaired fasting glucose; M81.0 Age-related osteoporosis without current pathological fracture; Z79.899 Other long term (current) drug therapy | CPT/HCPCS: 99397 ==

== ENCOUNTER 2025-11-14 11:50 | Outpatient (REF) | payer MEDICARE, SELFPAY ==
--- OUTSIDE RECORDS SUMMARY | 2024-10-11 05:30 | XMS_ITS ---
Author Organization [facility] Clarisa Cruz Address [address] [facility] [place] [address] Care Team Providers Care Head Mixer Name Role Phone Wil ALBERTS, Annalee Justice Primary Care Provider Un available Kevin Crowder Unavailable [phone] Isabelle Schmid Unavailable [phone] Allergies Allergen (clinical drug ingredient) Drug/Non Drug Allergy documented on EMR Reaction Allergy Type Onset Date Status codeine Codeine Unknown Drug Allergy Active Latex Latex Unknown Allergy Active Substance with sulfonamide structure and antibacterial mechanism of action (substance) Sulfa Antibiotics Unknown Drug Allergy Active Medications Medication SIG (Take, Route, Fr equency, Duration) Notes Start Date End Date Status Spironolactone 25 MG 1 tablet Orally; Du ration: 30 day(s) Unknown Gabapentin 300 MG 1 capsule Orally Onc e a day; Duration: 30 day(s) Unknown Keflex 500 500 MG 1 capsule Orally anushka ry 12 hrs; Duration: 10 day(s) 03/21/2021 Unknown Warfarin Sodium 2.5 MG 1 tablet Orally O nce a day; Duration: 30 day(s) Unknown Bumetanide 1 MG as directed Orally Unknown Amiodarone HCl 100 MG 1 tablet Orally On ce a day; Duration: 30 day(s) Unknown Social History Tobacco Use: Social History Observation Description Date Details (start date - stop date) Former Smoker NA - NA Tobacco Use/Smoking Question Answer Notes Are you a: former smoker Additional Findings: Tobacco Non-User Current no n-smoker Alcohol Screen Question Answer Notes Did you have a drink containing alcohol in the p ast year? No Points 0 Interpretation Negative Tobacco use other than smoking: Question Answer Notes Are you an other tobacco user? No Encounters Encounter Location Date Provider Diagnosis [facility] [place] [address] [place] [address] 10/11/2024 Isabelle Schmid Plan Of Treatment Next Appt Details Provider Name:Kevin Crowder , 02/14/2026 11:00:00 AM, [address] [facility], [place], [address], Progress Notes * Loan DOWNEYB:1955 (70 yo F)Acc No.[id number]:10/11/2024 Progress Notes Patient: Davida SOL Provider: Piper Schmid DPM :1955 A ge:69 Y S ex:Female Date:10/11/2024 Address:[address] [place], [place] [id number] Pcp:Zachery Giordano Subjective: * Chief Complaints: * * ROS: G eneral/Constitutional: Nausea d enies. V omiting d enies. H yohan Thirst d enies. L oss appetite d enies. C hills d enies. F atigue d enies.?Fever d enies. N ight Sweats d enies. U nexplained weight loss d enies. U nexplained weight gain d enies. H EENTM: Dentures d enies. D izziness d enies. G lasses/contacts d enies. R etinopathy d enies. B lurred/double vision d enies. T MJ?denies. D ischarge/drainage d enies. I mplants d enies. S ore throat d enies. D ental implants d enies. H ana of hearing d enies. D ifficulty chewing/swallowing/speaking d enies. N ose bleeds d enies. S ore mouth d enies. ? R espiratory: On Oxygen d enies. P neumonia/pleurisy d enies.?Bronchitis d enies. E mphysema d enies. C oughing d enies. C ough blood?denies. S hortness of breath d enies. W heezing d enies. C ardiovascular: Pacemaker d enies. M CRAFT DEMONSTRATOR d enies. W PW d enies. C HF d enies. H eart attack d enies. S eptal defect d enies. R apid beat d enies. C hest pain d enies. A trial Fib. a dmits. M urmur/Palpitations d enies. G astrointestinal: Hemorrhoids d enies. S tomach/Abdominal pain d enies. D ark blood stool d enies. I rritable bowel d enies. C onstipation d enies. D iarrhea d enies. H ematology: Swelling a dmits. C lots A dmits. V aricose Veins a dmits. B ruising a dmits. B leeding problem d enies. G enitourinary: Blood urine d enies. F requent/Painfu/urination/bladder control d enies. K idney stones a dmits. I nfection (UTI) d enies. N ephropathy d enies. s ex trans dis (STD) d enies. P rostate d enies. M usculoskeletal: Hammertoes a dmits. B unions a dmits. B ack Pain a dmits. M uscle Cramps/ Resting d enies. M uscle cramps / walking d enies.?Generalized aches and pains a dmits. W eakness d enies. I nteg.: Mccormick d enies. S cars d enies. C orns/calluses?denies. I ngrown nails d enies. P ainful nails d enies. O pen Sores d enies. R ashes d enies. N eurologic: Difficulty sleeping d enies. B rain disorder d enies. N umbness d enies. B alance trouble d enies. C onfusion d enies. F ainting/blackouts d enies. T ingling d enies. T remors d enies. * Medical History: B ack,Hip,and Knee pain, Broken bones, Diverticulosis, Headaches/Migraines, Poor circulation, Vascular phlebitis (clots), Measles, Chicken pox, Arthritis, Heart disease, Kidney disease, Sciatica, Restless leg syndrome. * Surgical History: h ysterectomy , cardiac catheterization 2020. * Hospitalization/Major Diagno stic Procedure: [facility] -AF[facility]/ Kidney Failure 08/2020. * Family History: M other: , poor circulation, diagnosed with Unspecified essential hypertension, Unspecified cerebral artery occlusion with cerebral infarction. F ather: , diagnosed with Other malignant neoplasm of unspecified site. M aternal Grand Mother: poor circulation. M aternal aunt: unknown, diagnosed with Diabetic - NIDDM. S iblings: unknown. P aternal Grand Father: diagnosed with Unspecified heart disease. M aternal uncle: diagnosed with Other malignant neoplasm of unspecified site. * Social History: T obacco Use: T obacco Use/Smoking A re you a: f ormer smoker A dditional Findings: Tobacco Non-User C urrent non-smoker Tobacco use other than smoking A re you an other tobacco user? N o D rugs/Alcohol: D rugs H ave you used drugs other than those for medical reasons in the past 12 months? N o Alcohol Screen D id you have a drink containing alcohol in the past year? N o P oints 0 I nterpretation N egative M iscellaneous: C affeine: no. Children: yes, 3. Marital status: . * Medications: U nknown Amiodarone HCl 100 MG Tablet 1 tablet Orally Once a day , Unknown Bumetanide 1 MG Tablet as directed Orally , Unknown Gabapentin 300 MG Capsule 1 capsule Orally Once a day , Unknown Spironolactone 25 MG Tablet 1 tablet Orally , Unknown Warfarin Sodium 2.5 MG Tablet 1 tablet Orally Once a day , Unknown Keflex 500 500 MG Capsule 1 capsule Orally every 12 hrs * Allergies: S ulfa Antibiotics, Codeine, Latex. Objective: * Vitals: Assessment: Plan: * Treatment: * Images: * The named appointment provid er may or may not be the originator of this progress note, and it is not deemed complete until electronically signed by the appointment provider. Sign off status: Pending * Provider: Piper Schmid DPM Date: 12/11/2023 Generated for Елена linda/Kallie/Juancarlos on: 01/15/2025 03:07 PM EST
--- OUTSIDE RECORDS SUMMARY | 2024-12-16 08:00 | XMS_ITS ---
Author Organization [facility] Address [address] [place] [address] Care Team Providers Care Conditioning Machine Operator Name Role Phone Wil ALBERTS, Annalee Justice Primary Care Provider Un available Kevin Crowder Unavailable [phone] Isabelle Schmid [phone] REASON FOR VISIT sooner appt Encounters Encounter Location Date Provider Diagnosis [facility] [address] [place] [address] 12/16/2024 Isabelle Schmid Plan Of Treatment Next Appt Details Provider Name:Kevin Crowder , 02/14/2026 11:00:00 AM, [address] [place], [address], Progress Notes * Donald RUIZaDOB:1955 (70 yo F)Acc No.[id number]:12/16/2024 Progress Notes Patient: Davida SOL Provider: Piper Schmid DPM :1955 A ge:69 Y S ex:Female Date:12/16/2024 Address:[address] [place], [place] [id number] Pcp:Zachery Giordano Subjective: * Chief Complaints: * 1 . Sooner appt. * Medical History: Objective: * Vitals: Assessment: Plan: * Treatment: * Images: * The named appointment provid er may or may not be the originator of this progress note, and it is not deemed complete until electronically signed by the appointment provider. Sign off status: Pending * Provider: Piper Schmid DPM Date: 0 12/16/2024 Generated for Елена Suazo/Juancarlos on: 01/15/2025 03:08 PM EST
--- OUTSIDE RECORDS SUMMARY | 2025-06-17 08:30 | XMS_ITS ---
Author Organization [facility] Address [address] [place] [address] Care Team Providers Care Incident Commander Name Role Phone Wil ALBERTS, Annalee Justice Primary Care Provider Un available Kevin Crowder Unavailable [phone] Allergies Allergen (clinical drug ingredient) Drug/Non Drug [...] Active Encounters Encounter Location Date Provider Diagnosis [facility] [address] [place] [address] 06/17/2025 Kevin Crowder Plan Of Treatment Next Appt Details Provider Name:Kevin Crowder , 02/14/2026 11:00:00 AM, [address] [place], [address], Progress Notes * Donald DOWNEYaDOB:1955 (70 yo F)Acc No.[id number]:06/17/2025 Progress Note Patient: Davida SOL Provider: Rebecca Crowder DPM :1955 A ge:69 Y S ex:Female Date:06/17/2025 Address:[address] [place] [address] Pcp:Zachery Giordano Subjective: * Chief Complaints: * [...] 0 06/17/2025 Generated for Елена linda/Kallie/Juancarlos on: 01/15/2025 03:07 PM EST
--- OUTSIDE RECORDS SUMMARY | 2025-08-12 06:00 | XMS_ITS ---
Author Organization [facility] Address [address] [place] [address] Care Team Providers Care Industrial/Organizational Psychologist Name Role Phone Wil ALBERTS, Annalee Justice Primary Care Provider Un available Kevin Crowder Unavailable [phone] Allergies Allergen (clinical drug ingredient) Drug/Non Drug [...] Date Provider Diagnosis [facility] [address] [place] [address] 08/12/2025 Kevin Crowder Plan Of Treatment Next Appt Details Provider Name:Kevin Crowder , 02/14/2026 11:00:00 AM, [address] [place], [address], Progress Notes * Donald DOWNEYaDOB:1955 (70 yo F)Acc No.[id number]:08/12/2025 Progress Note Patient: Davida SOL Provider: Rebecca Crowder DPM :1955 A ge:69 Y S ex:Female Date:08/12/2025 Address:[address] [place] [address] Pcp:Zachery Giordano Subjective: * Chief Complaints: * [...] 0 08/12/2025 Generated for Елена linda/Kallie/Juancarlos on: 01/15/2025 03:08 PM EST
[2025-11-14 12:03] LABS: MANUAL DIFF FLAG NO
[2025-11-14 12:25] LABS: Hematocrit 43.2 % (37.0-47.0); Hemoglobin 14.1 g/dl (12.0-16.0); Imm Gran Abs Auto 0.02 X10*3/uL (0.00-0.03); Imm Gran Pct Auto 0.3 % (0.0-0.4); Lymphocytes Absolute Auto 2.1 X10*3/uL (1.2-4.9); Mean Corpuscular HGB Conc 32.6 g/dl (31.0-35.0); Mean Corpuscular Hemoglobin 30.3 pg (27.0-33.0); Mean Corpuscular Volume 92.7 fL (80.0-98.0); NRBC Abs Auto 0.000 X10*3/uL (0.0-0.012); NRBC Pct Auto 0.0 /100WBC (0.0-0.2); Platelet Count 210 X10*3/uL (160-400); Red Blood Count 4.66 X10*6/uL (4.20-5.50); White Blood Count 6.7 X10*3/uL (4.8-10.8)
[2025-11-14 13:28] LABS: Alanine Aminotransferase 16 U/L (0-31); Anion Gap 12 (12-20); Aspartate Amino Transferase 18 U/L (5-31); Blood Urea Nitrogen 22 mg/dL (9-16); Calcium 9.6 mg/dL (8.4-10.2); Carbon Dioxide 30 mmol/L (22-29); Chloride 105 mmol/L (96-108); Cholesterol 206 mg/dL (<200); Estimated Glomerular Filt Rate 42; HDL Cholesterol 48 mg/dL (>40); Potassium 4.6 mmol/L (3.3-5.1); Sodium 142 mmol/L (135-145); Triglycerides 114 mg/dL (<150)
--- OUTSIDE RECORDS SUMMARY | 2025-11-14 15:08 | XMS_ITS | Patient Health Record ---
Author Organization [facility] Clarisa flores [place] Address [address] [place] [address] Care Team Providers Care Hog Sticker Name Role Phone Wil ALBERTS, Annalee Justice Primary Care Provider Un available LakeshaKevin hill Unavailable [phone] SchmidThaniaIsabelle Unavailable [phone] Allergies Allergen (clinical drug ingredient) Drug/Non Drug [...] atherosclerosis of arteries of lower limbs (disorder) (46690153198882505 ) Atherosclerosis of artery of both lower extremities (I70.203) Active confirmed Q7(A), Q8(2B), Q9(1B,2 C) Vital Signs Blood pressure diastolic 74 mm Hg 11/04/2025 Height 5ft5in in 11/04/2025 Blood pressure systolic 123 mm Hg 11/04/2025 Weight 240 lbs 11/04/2025 BMI 39.93 kg/m2 11/04/2025 Procedures Procedure Date Ordered Date Performed Result Body Sit e 96817-TUAUHDB NAIL, 1-5 12/07/2024 N/A 92815-Aismycbi Plate 12/07/2024 N/A 99596-YBEK SKIN LESIONS, 2 TO 4 12/07/2024 N/A Q8766-NGDCCAHE DYSTROPHIC NAILS ANY # 12/07/2024 N/A 33015-HPVSPBQ NAIL, 1-5 03/15/2025 N/A 19992-Yhpfvmvl Plate 03/15/2025 N/A 24653-ENTL SKIN LESIONS, 2 TO 4 03/15/2025 N/A T0888-FATYLBOZ DYSTROPHIC NAILS ANY # 03/15/2025 N/A 05624-BFX 08/26/2025 N/A 47453-NQQVKEX SKIN/TISSUE 09/09/2025 N/A 44079- Debride <25 sq cm 11/04/2025 N/A Encounters Encounter Location Date Provider Diagnosis [facility] [address] [place] [address] 12/07/2024 Kevin Crowder Atherosclerosis of artery of [...] right foot M19.071 and Ingrown nail L60.[address] [address] 03/15/2025 Kevin Crowder Atherosclerosis of artery of both lower extremities I70.203 ; Tinea unguium B35.1 ; Pain in right toe(s) M79.674 ; Pain in left toe(s) M79.675 ; 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 ; Osteoarthritis of midtarsal joint of right foot M19.071 and Ingrown nail L60.[address] [address] 08/26/2025 Kevin Crowder Ingrown nail L60.[address] [address] 09/09/2025 Kevindestiny Crowder Skin ulcer of toe of left foot with fat layer exposed L97.[address] [address] 11/04/2025 Kevin Lakesha Skin ulcer of toe of left foot, limited to breakdown of skin L97.[address] [address] 12/07/2024 Kevin Crowder [address] [address] 06/17/2025 Kevin Crowder [address] [address] 08/08/2025 Kevin Crowder Assessments Encounter Date Diagnosis [...] X ray : Foot, right 3V 03/21/2021 90543-HUKVFGN NAIL, 1-5 12/07/2024 91765-DXBWDBV NAIL, 1-5 03/15/2025 94454-Aikhokbd Plate 03/15/2025 02177-Iqrhbyfj Plate 12/07/2024 86452-CJC 08/26/2025 48384- Debride <25 sq cm 11/04/2025 29566-BCHUYVP SKIN/TISSUE 09/09/2025 77786-LZBU SKIN LESIONS, 2 TO 4 03/15/20 25 43002-AEWI SKIN LESIONS, 2 TO 4 12/07/19 25 N0728-CYCRTCNK DYSTROPHIC NAILS ANY # U9977-ZIYTJWJM DYSTROPHIC NAILS ANY # X ray : Ankle, right 3V 03/21/2021 Next Appt Details Provider Name:Kevin Crowder , 02/14/2026 11:00:00 AM, [address] [facility], [place], [address], Insurance Providers Payer Name Payer Address Payer Phone Subscriber Number Group Number Insured Name Patient Relationship to Insured Coverage Start Date Coverage End Date Medicare National [facility] Status [employer] [address] [place] [address] [id number] Davida Downey Self - patient is the insured [employer] [address] [place] [address] [phone] [id number] Davida Downey Self - patient is the [...]
--- OUTSIDE RECORDS SUMMARY | 2025-11-14 15:08 | XMS_ITS | Clinical Summary ---
Author Organization [facility] Facility Address [address] [address] Care Team Providers Care Job Analyst Name Role Phone Dena Gore MD Primary Care Provider [phone] Allergies Active Allergy Reactions Criticality Noted Date [...] require that she be seen at the [facility] but she should definitely be quarantined since onset of her symptoms Friday for 14 days. Patient works at [employer] and would like a note for work [...] disease of the hips bilaterally, referral to [facility] orthopedics for consultation question management. The Celebrex [...] prior to testing. Until then, can try njqv-ekp-kzarxlb antihistamine such as generic versions of Margy, [...] age to complete this topic Insurance Medicare [facility] Medicare [facility] Care Teams Job Analyst Relationship Specialty Start Date End Date Dena Gore MD [address] [place] [address] PCP - General Internal Medicine 03/13/22
== END 2025-11-14 11:51 | disposition home or self-care (01) ==
LOC: HO.LAB 11:50
PROVIDERS: PCP Internal Medicine; Visit Provider Nurse Practitioner Family
DX: Z00.00 Encounter for general adult medical examination without abnormal findings (principal); I48.0 Paroxysmal atrial fibrillation; M81.0 Age-related osteoporosis without current pathological fracture; I87.2 Venous insufficiency (chronic) (peripheral); Z79.899 Other long term (current) drug therapy; R73.01 Impaired fasting glucose; R79.89 Other specified abnormal findings of blood chemistry; E66.01 Morbid (severe) obesity due to excess calories; N18.30 Chronic kidney disease, stage 3 unspecified; Z28.20 Immunization not carried out because of patient decision for unspecified reason; G47.33 Obstructive sleep apnea (adult) (pediatric)
CPT/HCPCS: 36415; 80048; 80061; 82306; 83036; 84100; 84443; 84450; 84460; 85025

== ENCOUNTER 2025-11-15 08:51 | Outpatient (AMB) | payer MEDICARE, SELFPAY ==
--- OUTSIDE RECORDS SUMMARY | 2024-10-11 05:30 | XMS_ITS ---
Author Organization [facility] Clarisa Cruz Address [address] [facility] [place] [address] Care Team Providers Care Tobacco Drummer Name Role Phone Wil ALBERTS, Annalee Justice Primary Care Provider Un available Kevin Crowder Unavailable [phone] Isabelle Schmid Unavailable [phone] Allergies Allergen (clinical drug ingredient) Drug/Non Drug [...] No Encounters Encounter Location Date Provider Diagnosis [facility] [place] [address] [place] [address] 10/11/2024 Isabelle Schmid Plan Of Treatment Next Appt Details Provider Name:Kevin Crowder , 02/14/2026 11:00:00 AM, [address] [facility], [place], [address], Progress Notes * Loan DOWNEYB:1955 (70 yo F)Acc No.[id number]:10/11/2024 Progress Notes Patient: Davida SOL Provider: Piper Schmid DPM :1955 A ge:69 Y S ex:Female Date:10/11/2024 Address:[address] [place], [place] [id number] Pcp:Zachery Giordano Subjective: * Chief Complaints: * [...] enies. C ardiovascular: Pacemaker d enies. M CUTTER OPERATOR ASBESTOS SHINGLE d enies. W PW d enies. C [...] Date: 12/11/2023 Generated for Елена linda/Kallie/Juancarlos on: 01/16/2025 09:13 AM EST
--- OUTSIDE RECORDS SUMMARY | 2024-12-16 08:00 | XMS_ITS ---
Author Organization [facility] Address [address] [place] [address] Care Team Providers Care It Training Specialist Name Role Phone Wil ALBERTS, Annalee Justice Primary Care Provider Un available Kevin Crowder Unavailable [phone] Isabelle Schmid [phone] REASON FOR VISIT sooner appt Encounters Encounter Location Date Provider Diagnosis [facility] [address] [place] [address] 12/16/2024 Isabelle Schmid Plan Of Treatment Next Appt Details Provider Name:Kevin Crowder , 02/14/2026 11:00:00 AM, [address] [place], [address], Progress Notes * Donald RUIZaDOB:1955 (70 yo F)Acc No.[id number]:12/16/2024 Progress Notes Patient: Davida SOL Provider: Piper Schmid DPM :1955 A ge:69 Y S ex:Female Date:12/16/2024 Address:[address] [place], [place] [id number] Pcp:Zachery Giordano Subjective: * Chief Complaints: * [...] 0 12/16/2024 Generated for Елена Suazo/Juancarlos on: 01/16/2025 09:14 AM EST
--- OUTSIDE RECORDS SUMMARY | 2025-06-17 08:30 | XMS_ITS ---
Author Organization [facility] Address [address] [place] [address] Care Team Providers Care Exceptional Student Education Aide Name Role Phone Wil ALBERTS, Annalee Justice Primary Care Provider Un available Kevin Crowder Unavailable [phone] Allergies Allergen (clinical drug ingredient) Drug/Non Drug [...] Active Encounters Encounter Location Date Provider Diagnosis [facility] [address] [place] [address] 06/17/2025 Kevin Crowder Plan Of Treatment Next Appt Details Provider Name:Kevin Crowder , 02/14/2026 11:00:00 AM, [address] [place], [address], Progress Notes * Donald DOWNEYaDOB:1955 (70 yo F)Acc No.[id number]:06/17/2025 Progress Note Patient: Davida SOL Provider: Rebecca Crowder DPM :1955 A ge:69 Y S ex:Female Date:06/17/2025 Address:[address] [place] [address] Pcp:Zachery Giordano Subjective: * Chief Complaints: * [...] 0 06/17/2025 Generated for Елена linda/Kallie/Juancarlos on: 01/16/2025 09:13 AM EST
--- OUTSIDE RECORDS SUMMARY | 2025-08-12 06:00 | XMS_ITS ---
Author Organization [facility] Address [address] [place] [address] Care Team Providers Care Leadership Development Instructor Name Role Phone Wil ALBERTS, Annalee Justice Primary Care Provider Un available Kevin Crowder Unavailable [phone] Allergies Allergen (clinical drug ingredient) Drug/Non Drug [...] Active Encounters Encounter Location Date Provider Diagnosis [facility] [address] [place] [address] 08/12/2025 Kevin Crowder Plan Of Treatment Next Appt Details Provider Name:Kevin Crowder , 02/14/2026 11:00:00 AM, [address] [place], [address], Progress Notes * Donald DOWNEYaDOB:1955 (70 yo F)Acc No.[id number]:08/12/2025 Progress Note Patient: Davida SOL Provider: Rebecca Crowder DPM :1955 A ge:69 Y S ex:Female Date:08/12/2025 Address:[address] [place] [address] Pcp:Zachery Giordano Subjective: * Chief Complaints: * [...] * Provider: Rebecca Crowder DPM Date: 0 08/12/2025 Generated for Елена linda/Kallie/Juancarlos on: 01/16/2025 09:14 AM EST
[2025-11-15 08:56] VITALS: BP 130/72; PULSE 54; BMI 40.7
--- NOTE | 2025-11-15 08:56 | MHC.OFFVIS ---
Vital Signs 11/15/25 08:56 Height 5 ft 5 in Weight 244 lb 11.41 oz BMI 40.7 BP 130/72 Blood Pressure Location Lt brachial Position Sitting Pulse 54 Pulse Source Monitor Intake Visit Reasons: s/p holter National Insurance Officer Required: No Allergies Sulfa (Sulfonamide Antibiotics) (SULFA(SULFONAMIDE ANTIBIOTICS)) Allergy (Unknown, Verified 11/15/25 08:59) RASH codeine Adverse Reaction (Verified 11/15/25 08:59) Vomiting fentanyl Adverse Reaction (Verified 11/15/25 08:59) vomiting hydromorphone (From Dilaudid) Adverse Reaction (Verified 11/15/25 08:59) vomiting oxycodone Adverse Reaction (Verified 11/15/25 08:59) Gastrointestinal Upset Medication List - Last Reconciled 11/15/25 by Yolanda Valencia NP-C amiodarone 100 mg PO DAILY ascorbate calcium (vitamin C) 500 mg PO DAILY bumetanide 1 mg (1/2 x 2 mg) PO DAILY cholecalciferol (vitamin D3) 10 mcg PO DAILY multivitamin 1 tab PO DAILY ropinirole 1 mg PO BID warfarin See Protocol 2.5 mg orally X5 DAYS/ 5MG X 2 DAYS ( and ); HPI HPI s/p holter: Details: Davida is a 69-year-old female with past medical history of hyperlipidemia, CKD, peripheral vascular disease, sleep apnea with CPAP use, chronic diastolic heart failure, paroxysmal atrial fibrillation who was referred to electrophysiology and now presents for follow-up. Today she reports that she saw Dr. Husain yesterday and is hoping to have an ablation scheduled in January. She has been feeling fatigued, weak and some lightheadedness at times. She is not having heart palpitations that feel like AFib. No chest discomfort at rest or with activity. No shortness of breath, PND, orthopnea. She has chronic leg edema, left greater than right in is wearing compression stockings. She ambulates with a cane. She reduced her amiodarone down to 100 mg daily as she felt that was causing some of her fatigue and weakness. Attends the [facility]. No bleeding issues reported. [facility] Medical History Family history of breast cancer in first degree relative Rib pain on left side History of kidney stones Dyslipidemia Osteoporosis Impaired fasting glucose Vaccine refused by patient Elevated brain natriuretic peptide (BNP) level Anemia Morbid obesity Iliotibial band syndrome Lumbosacral radiculopathy due to osteoarthritis of spine History of deep vein thrombophlebitis of lower extremity Positive ALVIN (antinuclear antibody) CKD (chronic kidney disease) stage 3, GFR 30-59 ml/min Osteoarthritis of right ankle and foot Postmenopausal Venous insufficiency of both lower extremities Diverticulitis Peripheral vascular complication of surgical procedure Peripheral vascular disease Hyperlipidemia DVT (deep venous thrombosis) Diastolic heart failure Paroxysmal A-fib BERE (obstructive sleep apnea) Surgical History History of lithotripsy History of cardiac cath Hx of vascular surgery H/O hysterectomy for benign disease Family History Father Emphysema, unspecified Mother No problems noted. Brother Atrial fibrillation Sister Atrial fibrillation Sister Breast cancer Social History Household Members: None Housing: House Do you presently have visiting nurse or other home services: No Alcohol intake: never Patient Tobacco Use Status: Never used Tobacco e-Cigarette/Vaping Use: Never Used service: No Current occupational status: retired and disabled Current occupation: rt handed Cognitive needs: No Hearing needs: No Vision needs: Yes Review of Systems Const All systems reviewed & are unremarkable except as noted in HPI and below Reports fatigue and Reports weakness ENT Reports dizziness Card Denies chest pain, Denies chest pain at rest, Denies chest pain with activity, Denies rapid heart rate, Denies pedal edema, Denies edema, Denies leg edema, Denies lightheadedness, Denies palpitations, Denies dyspnea, Denies dyspnea on exertion and Denies orthopnea Resp Denies cough, Denies dyspnea and Denies dyspnea on exertion GI Denies hematochezia and Denies change in stool character Musc Denies abnormal gait, Denies limited range of motion, Denies muscle cramps, Reports muscle weakness, Denies numbness, Denies radiating pain into limb, Denies stiffness and Denies tingling Neuro Denies abnormal gait, Reports dizziness, Denies numbness, Denies tingling and Reports weakness Endo Reports fatigue and Denies palpitations Physical Exam Vital Signs: Last Vital Signs Pulse 54 11/15/25 08:56 BP 130/72 11/15/25 08:56 BMI result Body Mass Index 40.7 Const General: cooperative, healthy appearing, comfortable and no acute distress Orientation/consciousness: patient oriented x3 Neck Neck: Yes normal visual inspection and Yes no JVD Resp Effort & Inspection: normal respiratory effort Auscultation: clear to auscultation bilaterally, no crackles, no rales, no rhonchi and no wheezes Cardio Rate: regular rate Rhythm: regular rhythm Heart sounds: S1 normal heart sound present, S2 normal heart sound present, no gallops, no murmurs and no rubs Neuro General: patient oriented x3 Extrem General: Yes normal to inspection, No no pedal edema and No calf tenderness Psych Appearance: grossly normal Mental Status: mental status grossly normal Speech and movement: Normal speech and movement present Office Procedures EKG Details: Today, read by me, sinus bradycardia, first-degree AV block, PACs, rate 54, QTC 407 millisecond 75055-Akoytikwqlmeddiqm, Complete Assessment & Plan Assessment & Plan (1) Paroxysmal A-fib: Code(s): I48.0 - Paroxysmal atrial fibrillation Category: Medical Plan: History of paroxysmal atrial fibrillation treated with rhythm control. She was on amiodarone 200 mg daily and recently reduced self reduced her dose to 100 mg daily due to symptoms of fatigue and weakness. Labs 11/14/2025 showed AST 18, ALT 16, TSH 2.51. EKG today showing sinus bradycardia with first-degree AV block, PACs, rate 54. Will have her continue the amiodarone 100 mg daily. She has been referred to electrophysiology and saw Dr. Husain yesterday. AFib ablation is being planned. Then anticipate amiodarone will be stopped. Continue Coumadin for anticoagulation. INR goal 2-3. Follows at [facility]. (2) Diastolic heart failure: Code(s): I50.30 - Unspecified diastolic (congestive) heart failure Category: Medical Plan: History of diastolic heart failure with last echocardiogram 09/21/2020 showing normal EF, impaired relaxation, normal valves. Condition stable with Bumex 1 mg daily. Labs 11/14/2025 shows creatinine 1.26. She is not fluid overloaded on examination. She is wearing compression stockings due to chronic leg edema. Signs and symptoms of heart failure reviewed with her. Will be updating echocardiogram due to current symptoms and plan to call her with results. Low-salt diet reviewed. (3) BERE (obstructive sleep apnea): Code(s): G47.33 - Obstructive sleep apnea (adult) (pediatric) Category: Medical Plan: Compliant with CPAP. (4) Current use of anticoagulant therapy: Code(s): Z79.01 - metal drawer (current) use of anticoagulants Category: Medical Plan: On Coumadin. Follows with [facility]. (5) On amiodarone therapy: Code(s): Z79.899 - Other skilled nursing (current) drug therapy Category: Medical Plan: As above Plan I reviewed the patient's recent EKG, explaining that it showed a normal but slow rhythm (sinus bradycardia at 54 bpm) with some early beats, similar to her prior tracing. We discussed her symptoms of fatigue and lightheadedness, noting that while the cause is unclear from labs, her low heart rate could be a contributing factor. I advised her that continuing the lower 100 mg dose of amiodarone is acceptable given her bradycardia, but also cautioned her about the increased risk of atrial fibrillation returning. I informed her that we would order a new echocardiogram to update her cardiac assessment, as the last one was several years ago. We confirmed the plan for her to undergo a cardiac ablation, which should allow for the cessation of amiodarone. I provided anticipatory guidance, advising her to rest when feeling dizzy to prevent falls. I assured her we would call with her test results and plan to see her for follow-up after the ablation. Orders: Orders CA echo transthoracic complete Today I50.30 - Unspecified diastolic (congestive) heart failure Patient Instructions: - You can continue taking the lower 100 mg dose of amiodarone for now. - Continue all your other medications unless the heart rhythm specialist (Dr. Husain) tells you to make a change. - Be aware that the lower medication dose has a slightly higher chance of letting your irregular heartbeat (A-Fib) return. - We will be ordering a new heart ultrasound (echocardiogram) for you. The scheduling office will call you to set up the appointment. - Your heart rhythm specialist's office will call you to schedule your heart procedure (ablation). This procedure should allow you to stop taking amiodarone. - It is very important to listen to your body. If you feel weak or dizzy, sit down and rest to avoid falling. - We will call you with the results of your heart ultrasound and will see you for a follow-up visit after your procedure. Patient was informed and verbally consented to the use of an ambient scribe for clinic note documentation during this visit. Visit time spent on chart review, interview, assessment, orders, documentation. Coding Level of Care Code Est Pt Level 4 (65108) Add On Problem Visit Only Diagnoses Paroxysmal A-fib I48.0 Diastolic heart failure I50.30 BERE (obstructive sleep apnea) G47.33 Current use of anticoagulant therapy Z79.01 On amiodarone therapy Z79.899 CPT Codes EKG - CPT: 39467-Bckciyklqbmwqnfsa, Complete ([id number]) Time Spent (min) 28
--- OUTSIDE RECORDS SUMMARY | 2025-11-15 09:14 | XMS_ITS | Clinical Summary ---
Author Organization [facility] Facility Address [address] [address] Care Team Providers Care Junior Java Developer Name Role Phone Dena Gore MD Primary Care Provider [phone] Allergies Active Allergy Reactions Criticality Noted Date [...] require that she be seen at the [facility] but she should definitely be quarantined since onset of her symptoms Friday for 14 days. Patient works at [employer] and would like a note for work [...] disease of the hips bilaterally, referral to [facility] orthopedics for consultation question management. The [...] prior to testing. Until then, can try yyua-wwe-yullpnh antihistamine such as generic versions of Margy, [...] age to complete this topic Insurance Medicare [facility] Medicare [facility] Care Teams Junior Java Developer Relationship Specialty Start Date End Date Dena Gore MD [address] [place] [address] PCP - General Internal Medicine 03/13/22
--- OUTSIDE RECORDS SUMMARY | 2025-11-15 09:14 | XMS_ITS | Patient Health Record ---
Author Organization [facility] Clarisa flores [place] Address [address] [facility] [place] [address] Care Team Providers Care Pilot Captain Name Role Phone Wil ALBERTS, Annalee Justice Primary Care Provider Un available LakeshaKevin hill Unavailable [phone] SchmidThaniaIsabelle Unavailable [phone] Allergies Allergen (clinical drug ingredient) Drug/Non Drug [...] atherosclerosis of arteries of lower limbs (disorder) ([id number] ) Atherosclerosis of artery of both lower extremities (I70.203) Active confirmed Q7(A), Q8(2B), Q9(1B,2 C) Vital Signs Blood pressure diastolic 74 mm Hg 11/04/2025 Height 5ft5in in 11/04/2025 Blood pressure systolic 123 mm Hg 11/04/2025 Weight 240 lbs 11/04/2025 BMI 39.93 kg/m2 11/04/2025 Procedures Procedure Date Ordered Date Performed Result Body Sit e 08307-LXHLSQI NAIL, 1-5 12/07/2024 N/A 49499-Stzqlcry Plate 12/07/2024 N/A 54867-HTQY SKIN LESIONS, 2 TO 4 12/07/2024 N/A K1840-CCTMPYXP DYSTROPHIC NAILS ANY # 12/07/2024 N/A 72012-MEENPDF NAIL, 1-5 03/15/2025 N/A 70030-Hyzdkwlx Plate 03/15/2025 N/A 58392-TWEC SKIN LESIONS, 2 TO 4 03/15/2025 N/A R5316-DRNHUCDF DYSTROPHIC NAILS ANY # 03/15/2025 N/A 62536-SOZ 08/26/2025 N/A 66561-MDKAQIR SKIN/TISSUE 09/09/2025 N/A 42639- Debride <25 sq cm 11/04/2025 N/A Encounters Encounter Location Date Provider Diagnosis [facility] [address] [place] [address] 12/07/2024 Kevin Crowder Atherosclerosis of artery of [...] foot M19.071 and Ingrown nail L60.[address] [address] 03/15/2025 Kevin Crowder Atherosclerosis of artery of both lower extremities I70.203 ; Tinea unguium B35.1 ; Pain in right toe(s) M79.674 ; Pain in left toe(s) M79.675 ; 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 ; Osteoarthritis of midtarsal joint of right foot M19.071 and Ingrown nail L60.[address] [address] 08/26/2025 Kevin Crowder Ingrown nail L60.[address] [address] 09/09/2025 Kevindestiny Crowder Skin ulcer of toe of left foot with fat layer exposed L97.[address] [address] 11/04/2025 Kevin Lakesha Skin ulcer of toe of left foot, limited to breakdown of skin L97.[address] [address] 12/07/2024 Kevin Crowder [address] [address] 06/17/2025 Kevin Crowder [address] [address] 08/08/2025 Kevin Crowder Assessments Encounter Date Diagnosis [...] X ray : Foot, right 3V 03/21/2021 36644-EBQAOMS NAIL, 1-5 12/07/2024 04524-SKABYDX NAIL, 1-5 03/15/2025 45193-Mqsgvqha Plate 03/15/2025 24066-Tlsygxtk Plate 12/07/2024 78458-ZDJ 08/26/2025 80846- Debride <25 sq cm 11/04/2025 83413-EEDYRIK SKIN/TISSUE 09/09/2025 00645-FRBT SKIN LESIONS, 2 TO 4 03/15/20 25 91662-IZYG SKIN LESIONS, 2 TO 4 12/07/19 25 Q1152-QTTCBLVQ DYSTROPHIC NAILS ANY # C8688-CVWAQNPX DYSTROPHIC NAILS ANY # X ray : Ankle, right 3V 03/21/2021 Next Appt Details Provider Name:Kevin Crowder , 02/14/2026 11:00:00 AM, [address] [facility], [place], [address], Insurance Providers Payer Name Payer Address Payer Phone Subscriber Number Group Number Insured Name Patient Relationship to Insured Coverage Start Date Coverage End Date Medicare [facility] [employer] [address] [place] [address] [id number] Davida Downey Self - patient is the insured [employer] [address] [place] [address] [id number] Davida Downey Self - patient is the [...]
== END 2025-11-15 09:24 | disposition home or self-care (01) ==
LOC: HO.HCS 08:52
PROVIDERS: PCP Internal Medicine; Visit Provider Nurse Practitioner Family
DX: I48.0 Paroxysmal atrial fibrillation (principal); I50.30 Unspecified diastolic (congestive) heart failure; G47.33 Obstructive sleep apnea (adult) (pediatric); Z79.01 Long term (current) use of anticoagulants; Z79.899 Other long term (current) drug therapy
CPT/HCPCS: 93010; 99214; G2211

== ENCOUNTER → 2025-11-15 08:51 | Outpatient (BNVA) | payer MEDICARE, SELFPAY | PROVIDERS: PCP Internal Medicine; Visit Provider Nurse Practitioner Family | DX: I48.0 Paroxysmal atrial fibrillation (principal); I50.30 Unspecified diastolic (congestive) heart failure; G47.33 Obstructive sleep apnea (adult) (pediatric); Z99.89 Dependence on other enabling machines and devices; Z79.01 Long term (current) use of anticoagulants | CPT/HCPCS: 93005; 99212 ==